=== PATIENT | female | born 1945 | race Caucasian/White ===

== ENCOUNTER 2019-01-15 14:46 | Inpatient (IN) | payer MEDICARE, MEDICAID ==
[2019-01-15] VITALS (10 sets, daily range): BP systolic 90–120; BP diastolic 45–62
[~2019-01-15] VITALS: Ht 165.1 cm; Wt 91.6 kg
[2019-01-15] MEDS ORDERED: PROPOFOL 10 MG/ML (20ML) VIAL. IV ONE (15:00)
[2019-01-15] MEDS ORDERED: MIDAZOLAM HCL/PF 5 MG/5 ML VIAL. IV ONE (15:00)
[2019-01-15] MEDS ORDERED: PROPOFOL 50 ML IV ONE (15:02)
[2019-01-15 15:05] LABS: BASO # 0.1 x10^3/uL (0.0-0.2); BASO % 1 % (0-3); EOS % 0 % (0-3); HEMATOCRIT 26.7 % (36.0-47.0); HEMOGLOBIN 8.4 g/dL (12.0-15.5); LYMPH # 1.5 x10^3/uL (1.0-4.8); LYMPH % 12 % (24-48); MEAN CORPUSCULAR HEMOGLOBIN 29 pg (25-35); MEAN CORPUSCULAR HGB CONC 31 g/dL (31-37); MEAN CORPUSCULAR VOLUME 92 fL (79-100); MONO # 1.2 x10^3/uL (0.0-1.1); MONO % 9 % (0-9); NEUT # 10.4 x10^3uL (1.8-7.7); NEUT % 78 % (31-73); PLATELET COUNT 245 x10^3/uL (140-400); RED BLOOD COUNT 2.91 x10^6/uL (3.50-5.40); RED CELL DISTRIBUTION WIDTH 20.9 % (11.5-14.5); WHITE BLOOD COUNT 13.3 x10^3/uL (4.0-11.0)
--- NOTE | 2019-01-15 15:08 | PHYS DOC ---
Adult General Chief Complaint Chief Complaint: OTHER COMPLAINTS HPI HPI Patient is a 73 year old [facility]. Yesterday, she was coded, in cardiac arrest. Patient was intubated. She was found to have pneumonia. She was septic. She was given vancomycin, zosyn, iv fluid and dopamine via picc line. Patient was sent here for admission to ICU. Dr. Coats, HER DOCTOR, will see her in the ICU but she needed to be checked into ER as a patient here first due to policy. Patient has been given ativan by prison and EMS for agitation. NO INFORMATION WAS ABLE TO OBTAIN FROM HER DUE TO HER BEING INTUBATED, HER FAMILY WAS NOT AROUND. Review of Systems Review of Systems NOT ABLE TO OBTAIN DUE TO INTUBATED STAGE. . Current Medications Current Medications Allergies Allergies Physical Exam Physical Exam Constitutional: Well developed, well nourished, INTUBATED, RESTRAINED TO BEG ON ROUTE, BUT AWAKE, ALERT. HENT: Normocephalic, atraumatic, bilateral external ears normal, ET TUBE IN MOUTH, DROOLING AT MOUTH. Eyes: PERRLA, EOMI, conjunctiva normal, no discharge. [] Neck: Normal range of motion, no tenderness, supple, no stridor. [] Cardiovascular:Heart rate regular rhythm, no murmur [] Lungs & Thorax: Bilateral breath sounds clear to auscultation [] Abdomen: Bowel sounds normal, soft, no tenderness, no masses, no pulsatile masses. Skin: Warm, dry, SKIN BRUISE ON ANTERIOR ABDOMEN. Back: ATRAUMATIC. Extremities:ATRAUMATIC. Neurologic: PATIENT WAS AWAKE, ALERT, RESTRAINED BY EMS UPON ARRIVAL TO ROOM. Psychologic: NOT ABLE TO EVALUATE DUE TO INTUBATED STAGE. Current Patient Data Vital Signs Vital Signs Date Time Temp Pulse Resp B/P (MAP) Pulse Ox O2 Delivery O2 Flow Rate FiO2 01/15/19 14:46 99.0 118 20 139/52 (81) 99 Ventilator 99.0 Lab Values Laboratory Tests Test 01/15/19 14:15 White Blood Count 13.3 x10^3/uL (4.0-11.0) H Red Blood Count 2.91 x10^6/uL (3.50-5.40) L Hemoglobin 8.4 g/dL (12.0-15.5) L Hematocrit 26.7 % (36.0-47.0) L Mean Corpuscular Volume 92 fL (79-100) Mean Corpuscular Hemoglobin 29 pg (25-35) Mean Corpuscular Hemoglobin Concent 31 g/dL (31-37) Red Cell Distribution Width 20.9 % (11.5-14.5) H Platelet Count 245 x10^3/uL (140-400) Neutrophils (%) (Auto) 78 % (31-73) H Lymphocytes (%) (Auto) 12 % (24-48) L Monocytes (%) (Auto) 9 % (0-9) Eosinophils (%) (Auto) 0 % (0-3) Basophils (%) (Auto) 1 % (0-3) Neutrophils # (Auto) 10.4 x10^3uL (1.8-7.7) H Lymphocytes # (Auto) 1.5 x10^3/uL (1.0-4.8) Monocytes # (Auto) 1.2 x10^3/uL (0.0-1.1) H Eosinophils # (Auto) 0.0 x10^3/uL (0.0-0.7) Basophils # (Auto) 0.1 x10^3/uL (0.0-0.2) Dohle Bodies Present Platelet Estimate Adequate (ADEQUATE) Large Platelets Present Giant Platelets Present Anisocytosis Mod Prothrombin Time 17.7 SEC (11.7-14.0) H Prothrombin Time INR 1.5 (0.8-1.1) H PTT 40 SEC (24-38) H Sodium Level 128 mmol/L (136-145) L Potassium Level 4.7 mmol/L (3.5-5.1) Chloride Level 92 mmol/L (98-107) L Carbon Dioxide Level 30 mmol/L (21-32) Anion Gap 6 (6-14) Blood Urea Nitrogen 83 mg/dL (7-20) H Creatinine 2.1 mg/dL (0.6-1.0) H Estimated GFR (Cockcroft-Gault) 23.2 BUN/Creatinine Ratio 40 (6-20) H Glucose Level 450 mg/dL (70-99) H Calcium Level 7.7 mg/dL (8.5-10.1) L Magnesium Level 2.1 mg/dL (1.8-2.4) Total Bilirubin 1.9 mg/dL (0.2-1.0) H Aspartate Amino Transferase (AST) 188 U/L (15-37) H Alanine Aminotransferase (ALT) 136 U/L (14-59) H Alkaline Phosphatase 224 U/L (46-116) H ZP-Otk-R-Type Natriuretic Peptide 3830 pg/mL (0-124) H Total Protein 5.5 g/dL (6.4-8.2) L Albumin 1.3 g/dL (3.4-5.0) L Albumin/Globulin Ratio 0.3 (1.0-1.7) L Laboratory Tests 01/15/19 14:15 Laboratory Tests 01/15/19 14:15 EKG EKG [] Radiology/Procedures Radiology/Procedures [] Course & Med Decision Making Course & Med Decision Making Pertinent Labs and Imaging studies reviewed. (See chart for details) Patient was given a bolus dose of versed, 5 mg iv in the ER for sedation. Patient was started on propofol drip. Dragon Disclaimer Dragon Disclaimer This electronic medical record was generated, in whole or in part, using a voice recognition dictation system. Departure Departure Impression: Primary Impression: Cardiac arrest Additional Impressions: HCAP (healthcare-associated pneumonia) Liver failure Disposition: ADMITTED INPATIENT Admitting Physician: Pepito Coats Condition: GUARDED Problem Qualifiers JULIOCESAR ACRNES DO Jan 15, 2019 15:08
[2019-01-15 15:14] LABS: PROTHROMBIN TIME PATIENT 17.7 SEC (11.7-14.0)
[2019-01-15] MEDS ORDERED: MIDAZOLAM 100mg/100ml NS BAG 100 ML IV ONE (15:15)
--- NOTE | 2019-01-15 15:15 | RAD ---
CHEST AP ONLY History: Intubation, CPR yesterday Comparison: None. Findings: Single view of the chest is submitted. There is enteric catheter coursing into the stomach, not fully seen. There is a left upper extremity PICC with the tip near the cavoatrial junction. There is endotracheal tube with the tip about 1.5 cm from isaiah. There are small pleural effusions bilaterally. There is bibasilar airspace opacity left greater than right, also of the mid right hemithorax. No pneumothorax is identified. Impression: 1. There are small pleural effusions. There is some bibasilar airspace opacity greater on the left and also of the mid right hemithorax which may be due to edema/infiltrate/atelectasis. Electronically signed by: Reji Benson MD (01/15/2019 3:11 PM) [facility]
[2019-01-15 15:17] LABS: CALCIUM 7.7 mg/dL (8.5-10.1); CREATININE 2.1 mg/dL (0.6-1.0); GFR 23.2; POTASSIUM 4.7 mmol/L (3.5-5.1)
[2019-01-15 15:23] LABS: ALBUMIN 1.3 g/dL (3.4-5.0); ALBUMIN/GLOBULIN RATIO 0.3 (1.0-1.7); MAGNESIUM 2.1 mg/dL (1.8-2.4); TOTAL BILIRUBIN 1.9 mg/dL (0.2-1.0); TOTAL PROTEIN 5.5 g/dL (6.4-8.2)
[2019-01-15] MEDS ORDERED: CALCIUM GLUCONATE 1,000 MG/10 ML VIAL. IVP ONE (15:30)
[2019-01-15 15:43] LABS: PLT ESTIMATE ADEQUATE (ADEQUATE)
[2019-01-15 15:46] LABS: ANISOCYTOSIS MOD
[2019-01-15 16:50] LABS: BASE EXCESS ABG 3 mmol/L (-3-3); HCO3 ABG 27 mmol/L (21-28); PCO2 ABG 38 mmHg (35-46); PO2 ABG 101 mmHg (65-108); SAT O2 ABG 97 % (92-99)
[2019-01-15] MEDS: NOREPINEPHRIN 8MG/250ML PREMIX 250 ML IV PRN (16:58)
--- NOTE | 2019-01-15 17:00 | NUR ---
Pt arrived to ICU bed 108. Pt admitted from [facility] post code. Pt arrived intubated, PICC line placed 01/14/19, dobbhoff, and castro in place. Orders placed per Dr. Coats. Notified Dr. France, and Dr. Les Sun of consult. Attempted to contact Dr. Duke regarding consult. Will continue to monitor.
--- NOTE | 2019-01-15 17:05 | PDOC ---
PULMONARY PROGRESS NOTES Vitals Vital Signs Date Time Temp Pulse Resp B/P (MAP) Pulse Ox O2 Delivery O2 Flow Rate FiO2 01/15/19 15:30 116 106/58 (74) 100 Room Air 01/15/19 14:46 99.0 20 99.0 Labs Laboratory Tests Test 01/15/19 14:15 White Blood Count 13.3 x10^3/uL (4.0-11.0) Red Blood Count 2.91 x10^6/uL (3.50-5.40) Hemoglobin 8.4 g/dL (12.0-15.5) Hematocrit 26.7 % (36.0-47.0) Mean Corpuscular Volume 92 fL (79-100) Mean Corpuscular Hemoglobin 29 pg (25-35) Mean Corpuscular Hemoglobin Concent 31 g/dL (31-37) Red Cell Distribution Width 20.9 % (11.5-14.5) Platelet Count 245 x10^3/uL (140-400) Neutrophils (%) (Auto) 78 % (31-73) Lymphocytes (%) (Auto) 12 % (24-48) Monocytes (%) (Auto) 9 % (0-9) Eosinophils (%) (Auto) 0 % (0-3) Basophils (%) (Auto) 1 % (0-3) Neutrophils # (Auto) 10.4 x10^3uL (1.8-7.7) Lymphocytes # (Auto) 1.5 x10^3/uL (1.0-4.8) Monocytes # (Auto) 1.2 x10^3/uL (0.0-1.1) Eosinophils # (Auto) 0.0 x10^3/uL (0.0-0.7) Basophils # (Auto) 0.1 x10^3/uL (0.0-0.2) Dohle Bodies Present Platelet Estimate Adequate (ADEQUATE) Large Platelets Present Giant Platelets Present Anisocytosis Mod Prothrombin Time 17.7 SEC (11.7-14.0) Prothromb Time International Ratio 1.5 (0.8-1.1) Activated Partial Thromboplast Time 40 SEC (24-38) Sodium Level 128 mmol/L (136-145) Potassium Level 4.7 mmol/L (3.5-5.1) Chloride Level 92 mmol/L (98-107) Carbon Dioxide Level 30 mmol/L (21-32) Anion Gap 6 (6-14) Blood Urea Nitrogen 83 mg/dL (7-20) Creatinine 2.1 mg/dL (0.6-1.0) Estimated GFR (Cockcroft-Gault) 23.2 BUN/Creatinine Ratio 40 (6-20) Glucose Level 450 mg/dL (70-99) Calcium Level 7.7 mg/dL (8.5-10.1) Magnesium Level 2.1 mg/dL (1.8-2.4) Total Bilirubin 1.9 mg/dL (0.2-1.0) Aspartate Amino Transf (AST/SGOT) 188 U/L (15-37) Alanine Aminotransferase (ALT/SGPT) 136 U/L (14-59) Alkaline Phosphatase 224 U/L (46-116) MO-Pqs-D-Type Natriuretic Peptide 3830 pg/mL (0-124) Total Protein 5.5 g/dL (6.4-8.2) Albumin 1.3 g/dL (3.4-5.0) Albumin/Globulin Ratio 0.3 (1.0-1.7) Laboratory Tests Test 01/15/19 14:15 White Blood Count 13.3 x10^3/uL (4.0-11.0) Red Blood Count 2.91 x10^6/uL (3.50-5.40) Hemoglobin 8.4 g/dL (12.0-15.5) Hematocrit 26.7 % (36.0-47.0) Mean Corpuscular Volume 92 fL (79-100) Mean Corpuscular Hemoglobin 29 pg (25-35) Mean Corpuscular Hemoglobin Concent 31 g/dL (31-37) Red Cell Distribution Width 20.9 % (11.5-14.5) Platelet Count 245 x10^3/uL (140-400) Neutrophils (%) (Auto) 78 % (31-73) Lymphocytes (%) (Auto) 12 % (24-48) Monocytes (%) (Auto) 9 % (0-9) Eosinophils (%) (Auto) 0 % (0-3) Basophils (%) (Auto) 1 % (0-3) Neutrophils # (Auto) 10.4 x10^3uL (1.8-7.7) Lymphocytes # (Auto) 1.5 x10^3/uL (1.0-4.8) Monocytes # (Auto) 1.2 x10^3/uL (0.0-1.1) Eosinophils # (Auto) 0.0 x10^3/uL (0.0-0.7) Basophils # (Auto) 0.1 x10^3/uL (0.0-0.2) Dohle Bodies Present Platelet Estimate Adequate (ADEQUATE) Large Platelets Present Giant Platelets Present Anisocytosis Mod Prothrombin Time 17.7 SEC (11.7-14.0) Prothromb Time International Ratio 1.5 (0.8-1.1) Activated Partial Thromboplast Time 40 SEC (24-38) Sodium Level 128 mmol/L (136-145) Potassium Level 4.7 mmol/L (3.5-5.1) Chloride Level 92 mmol/L (98-107) Carbon Dioxide Level 30 mmol/L (21-32) Anion Gap 6 (6-14) Blood Urea Nitrogen 83 mg/dL (7-20) Creatinine 2.1 mg/dL (0.6-1.0) Estimated GFR (Cockcroft-Gault) 23.2 BUN/Creatinine Ratio 40 (6-20) Glucose Level 450 mg/dL (70-99) Calcium Level 7.7 mg/dL (8.5-10.1) Magnesium Level 2.1 mg/dL (1.8-2.4) Total Bilirubin 1.9 mg/dL (0.2-1.0) Aspartate Amino Transf (AST/SGOT) 188 U/L (15-37) Alanine Aminotransferase (ALT/SGPT) 136 U/L (14-59) Alkaline Phosphatase 224 U/L (46-116) TX-Yiy-L-Type Natriuretic Peptide 3830 pg/mL (0-124) Total Protein 5.5 g/dL (6.4-8.2) Albumin 1.3 g/dL (3.4-5.0) Albumin/Globulin Ratio 0.3 (1.0-1.7) Impression . DICTATED THANKS GISELLA MCNEAL MD Jan 15, 2019 17:05
[2019-01-15] MEDS ORDERED: PIP/TAZO PER PHARMACY MC PRN ×2 (17:15→17:45)
[2019-01-15] MEDS ORDERED: ALBUTEROL SULFATE 2.5 MG/3 ML NEBU. NEB PRN (17:15)
[2019-01-15] MEDS ORDERED: ACETAMINOPHEN 325 MG TABLET. PO PRN (17:15)
[2019-01-15] MEDS ORDERED: DOCUSATE SODIUM 100 MG CAPSULE. PO PRN (17:15)
[2019-01-15] MEDS ORDERED: TRAM50TA PO (17:16)
[2019-01-15] MEDS ORDERED: QUET25TA5 PO ×2 (17:16)
[2019-01-15] MEDS ORDERED: AMIO200T4 PO (17:18)
[2019-01-15] MEDS ORDERED: FURO-68 PO (17:18)
[2019-01-15] MEDS ORDERED: PANT20TA2 PO (17:18)
[2019-01-15] MEDS ORDERED: DOCU100C28 PO (17:30)
[2019-01-15] MEDS ORDERED: ACET160O49 PO (17:30)
[2019-01-15] MEDS ORDERED: THIA100T43 PO (17:30)
[2019-01-15] MEDS ORDERED: ONDA4TAB7 PO (17:30)
[2019-01-15] MEDS ORDERED: ASPI325T8 PO (17:30)
[2019-01-15] MEDS ORDERED: ALBU2.5V5 NEB (17:30)
[2019-01-15] MEDS ORDERED: ASCO-78 PO (17:30)
[2019-01-15] MEDS ORDERED: MAGN2400 PO (17:30)
[2019-01-15] MEDS ORDERED: CARV3.12 PO (17:30)
[2019-01-15] MEDS ORDERED: MIRT7.5T8 PO (17:30)
[2019-01-15] MEDS ORDERED: ATOR10TA60 PO (17:30)
[2019-01-15] MEDS ORDERED: DEXTROSE 50% 25 GM / 50ML DISP.SYRIN. IV PRN (17:45)
[2019-01-15] MEDS ORDERED: VANCOMYCIN PER PHARMACY MC PRN (17:45)
[2019-01-15 18:27] LABS: FIO2 ABG 50
[2019-01-15] MEDS: PIPERACILLIN/TAZOBACTAM 2.25 GM in IV NORMAL SALINE 50ML 50 ML IV SCH (18:30)
[2019-01-15] MEDS: CARVEDILOL 3.125 MG TABLET. PO SCH (18:30)
[2019-01-15] MEDS ORDERED: ONDANSETRON ODT 4 MG TAB.RAPDIS. PO PRN (18:45)
[2019-01-15] MEDS ORDERED: MAGNESIUM HYDROXIDE 2,400 MG/30 ML ORAL.SUSP. PO PRN (18:45)
[2019-01-15] MEDS: ALBUTEROL SULFATE 2.5 MG/3 ML NEBU. NEB SCH (19:42)
[2019-01-15] MEDS ORDERED: VANCOMYCIN 2 GM in IV NORMAL SALINE 500ML BAG 500 ML IV ONE (20:00)
[2019-01-15] MEDS: QUEtiapine 25 MG TABLET. PO SCH (20:57)
[2019-01-15] MEDS: ATORVASTATIN CALCIUM 10 MG TABLET. PO SCH (20:57)
--- NOTE | 2019-01-15 21:13 | NUR ---
Pharmacy Vancomycin Dosing Note S: Consulted to monitor and dose vancomycin started 01/15/19. O: VASILIY ESPINAL is a 73 year old F with HCAP, . Other Antibiotics: ZOSYN LABS: Last BUN: 83 Last Creatinine: 2.1 Creatinine Clearance: 26 mL/min Last WBC: 13.3 Tmax (past 24 hours): 100.0 Vancomycin Dosing: Dosing Weight: Adjusted Target Trough: 15-20 A: Based on: VANCO dosing guidelines P: 1. Begin Vancomycin 2000mg LOAD dose, then 1250 mg IV q24h 2. Follow up Trough level on 01/17/19 at 2030 3. Pharmacy will continue to monitor, follow and adjust therapy as needed. RAMON STILL, [facility], 01/15/19 [id number]
[2019-01-16] VITALS (38 sets, daily range): BP systolic 58–134; BP diastolic 37–81
[2019-01-16] MEDS: MIDAZOLAM 100mg/100ml NS BAG 100 ML IV PRN (02:55)
[2019-01-16] MEDS: PIPERACILLIN/TAZOBACTAM 2.25 GM in IV NORMAL SALINE 50ML 50 ML IV SCH ×6 (05:40→23:47)
[2019-01-16] MEDS: INSULIN LISPRO 300 UNITS/3 ML INSULN.PEN. SQ SCH ×5 (05:40→23:57)
[2019-01-16 05:53] LABS: BASO # 0.1 x10^3/uL (0.0-0.2); BASO % 1 % (0-3); EOS # 0.2 x10^3/uL (0.0-0.7); EOS % 1 % (0-3); HEMATOCRIT 24.9 % (36.0-47.0); HEMOGLOBIN 7.9 g/dL (12.0-15.5); LYMPH # 1.3 x10^3/uL (1.0-4.8); LYMPH % 10 % (24-48); MEAN CORPUSCULAR HEMOGLOBIN 29 pg (25-35); MEAN CORPUSCULAR HGB CONC 32 g/dL (31-37); MEAN CORPUSCULAR VOLUME 91 fL (79-100); MONO # 1.3 x10^3/uL (0.0-1.1); MONO % 10 % (0-9); NEUT # 10.1 x10^3uL (1.8-7.7); NEUT % 78 % (31-73); PLATELET COUNT 260 x10^3/uL (140-400); RED BLOOD COUNT 2.73 x10^6/uL (3.50-5.40); RED CELL DISTRIBUTION WIDTH 20.5 % (11.5-14.5)
[2019-01-16] MEDS: NOREPINEPHRIN 8MG/250ML PREMIX 250 ML IV PRN ×3 (06:10→17:27)
[2019-01-16 06:13] LABS: ALBUMIN 1.3 g/dL (3.4-5.0); ALBUMIN/GLOBULIN RATIO 0.3 (1.0-1.7); GFR 24.6; POTASSIUM 4.4 mmol/L (3.5-5.1); TOTAL BILIRUBIN 0.8 mg/dL (0.2-1.0); TOTAL PROTEIN 5.3 g/dL (6.4-8.2)
[2019-01-16] MEDS: ALBUTEROL SULFATE 2.5 MG/3 ML NEBU. NEB SCH ×2 (07:03→20:10)
[2019-01-16] MEDS: CARVEDILOL 3.125 MG TABLET. PO SCH ×2 (07:20→13:19)
[2019-01-16] MEDS: PANTOPRAZOLE 40 MG TABLET.DR. PO SCH (07:20)
[2019-01-16 07:24] LABS: BASE EXCESS ABG 4 mmol/L (-3-3); HCO3 ABG 29 mmol/L (21-28); PCO2 ABG 44 mmHg (35-46); PO2 ABG 82 mmHg (65-108); SAT O2 ABG 95 % (92-99)
[2019-01-16 07:25] LABS: FIO2 ABG 40
[2019-01-16] MEDS ORDERED: INSULIN LISPRO 300 UNITS/3 ML INSULN.PEN. SQ SCH (08:00)
[2019-01-16] MEDS: ASPIRIN 325 MG TABLET PO SCH (08:03)
[2019-01-16] MEDS: ASCORBIC ACID 500 MG TABLET PO SCH (08:03)
[2019-01-16] MEDS: AMIODARONE HCL 200 MG TABLET. PO SCH (08:03)
[2019-01-16] MEDS: THIAMINE 100 MG TABLET. PO SCH (08:03)
--- NOTE | 2019-01-16 08:07 | PDOC ---
Infectious Disease Note Vital Sign Vital Signs Vital Signs Date Time Temp Pulse Resp B/P (MAP) Pulse Ox O2 Delivery O2 Flow Rate FiO2 01/16/19 07:20 92 96/48 01/16/19 07:03 97 Ventilator 01/16/19 07:00 20 01/16/19 04:00 98.6 98.6 Labs Lab Laboratory Tests Test 01/15/19 14:15 01/15/19 16:40 01/15/19 18:34 01/15/19 20:49 White Blood Count 13.3 x10^3/uL (4.0-11.0) Red Blood Count 2.91 x10^6/uL (3.50-5.40) Hemoglobin 8.4 g/dL (12.0-15.5) Hematocrit 26.7 % (36.0-47.0) Mean Corpuscular Volume 92 fL (79-100) Mean Corpuscular Hemoglobin 29 pg (25-35) Mean Corpuscular Hemoglobin Concent 31 g/dL (31-37) Red Cell Distribution Width 20.9 % (11.5-14.5) Platelet Count 245 x10^3/uL (140-400) Neutrophils (%) (Auto) 78 % (31-73) Lymphocytes (%) (Auto) 12 % (24-48) Monocytes (%) (Auto) 9 % (0-9) Eosinophils (%) (Auto) 0 % (0-3) Basophils (%) (Auto) 1 % (0-3) Neutrophils # (Auto) 10.4 x10^3uL (1.8-7.7) Lymphocytes # (Auto) 1.5 x10^3/uL (1.0-4.8) Monocytes # (Auto) 1.2 x10^3/uL (0.0-1.1) Eosinophils # (Auto) 0.0 x10^3/uL (0.0-0.7) Basophils # (Auto) 0.1 x10^3/uL (0.0-0.2) Dohle Bodies Present Platelet Estimate Adequate (ADEQUATE) Large Platelets Present Giant Platelets Present Anisocytosis Mod Prothrombin Time 17.7 SEC (11.7-14.0) Prothromb Time International Ratio 1.5 (0.8-1.1) Activated Partial Thromboplast Time 40 SEC (24-38) Sodium Level 128 mmol/L (136-145) Potassium Level 4.7 mmol/L (3.5-5.1) Chloride Level 92 mmol/L (98-107) Carbon Dioxide Level 30 mmol/L (21-32) Anion Gap 6 (6-14) Blood Urea Nitrogen 83 mg/dL (7-20) Creatinine 2.1 mg/dL (0.6-1.0) Estimated GFR (Cockcroft-Gault) 23.2 BUN/Creatinine Ratio 40 (6-20) Glucose Level 450 mg/dL (70-99) Calcium Level 7.7 mg/dL (8.5-10.1) Magnesium Level 2.1 mg/dL (1.8-2.4) Total Bilirubin 1.9 mg/dL (0.2-1.0) Aspartate Amino Transf (AST/SGOT) 188 U/L (15-37) Alanine Aminotransferase (ALT/SGPT) 136 U/L (14-59) Alkaline Phosphatase 224 U/L (46-116) KW-Bau-W-Type Natriuretic Peptide 3830 pg/mL (0-124) Total Protein 5.5 g/dL (6.4-8.2) Albumin 1.3 g/dL (3.4-5.0) Albumin/Globulin Ratio 0.3 (1.0-1.7) O2 Saturation 97 % (92-99) Arterial Blood pH 7.46 (7.35-7.45) Arterial Blood pCO2 at Patient Temp 38 mmHg (35-46) Arterial Blood pO2 at Patient Temp 101 mmHg (65-108) Arterial Blood HCO3 27 mmol/L (21-28) Arterial Blood Base Excess 3 mmol/L (-3-3) FiO2 50 Glucose (Fingerstick) 212 mg/dL (70-99) 201 mg/dL (70-99) Test 01/16/19 00:06 01/16/19 05:30 01/16/19 05:39 01/16/19 07:00 Glucose (Fingerstick) 196 mg/dL (70-99) 165 mg/dL (70-99) White Blood Count 13.0 x10^3/uL (4.0-11.0) Red Blood Count 2.73 x10^6/uL (3.50-5.40) Hemoglobin 7.9 g/dL (12.0-15.5) Hematocrit 24.9 % (36.0-47.0) Mean Corpuscular Volume 91 fL (79-100) Mean Corpuscular Hemoglobin 29 pg (25-35) Mean Corpuscular Hemoglobin Concent 32 g/dL (31-37) Red Cell Distribution Width 20.5 % (11.5-14.5) Platelet Count 260 x10^3/uL (140-400) Neutrophils (%) (Auto) 78 % (31-73) Lymphocytes (%) (Auto) 10 % (24-48) Monocytes (%) (Auto) 10 % (0-9) Eosinophils (%) (Auto) 1 % (0-3) Basophils (%) (Auto) 1 % (0-3) Neutrophils # (Auto) 10.1 x10^3uL (1.8-7.7) Lymphocytes # (Auto) 1.3 x10^3/uL (1.0-4.8) Monocytes # (Auto) 1.3 x10^3/uL (0.0-1.1) Eosinophils # (Auto) 0.2 x10^3/uL (0.0-0.7) Basophils # (Auto) 0.1 x10^3/uL (0.0-0.2) Sodium Level 141 mmol/L (136-145) Potassium Level 4.4 mmol/L (3.5-5.1) Chloride Level 102 mmol/L (98-107) Carbon Dioxide Level 31 mmol/L (21-32) Anion Gap 8 (6-14) Blood Urea Nitrogen 76 mg/dL (7-20) Creatinine 2.0 mg/dL (0.6-1.0) Estimated GFR (Cockcroft-Gault) 24.6 BUN/Creatinine Ratio 38 (6-20) Glucose Level 196 mg/dL (70-99) Calcium Level 8.0 mg/dL (8.5-10.1) Total Bilirubin 0.8 mg/dL (0.2-1.0) Aspartate Amino Transf (AST/SGOT) 100 U/L (15-37) Alanine Aminotransferase (ALT/SGPT) 106 U/L (14-59) Alkaline Phosphatase 214 U/L (46-116) Total Protein 5.3 g/dL (6.4-8.2) Albumin 1.3 g/dL (3.4-5.0) Albumin/Globulin Ratio 0.3 (1.0-1.7) Procalcitonin 11.19 ng/mL (0.00-0.10) O2 Saturation 95 % (92-99) Arterial Blood pH 7.43 (7.35-7.45) Arterial Blood pCO2 at Patient Temp 44 mmHg (35-46) Arterial Blood pO2 at Patient Temp 82 mmHg (65-108) Arterial Blood HCO3 29 mmol/L (21-28) Arterial Blood Base Excess 4 mmol/L (-3-3) FiO2 40 Objective Assessment Fever Respiratory failure Circulatory failure CHF/Cardiomyopathy DM A fib Stage 3 , sacral ulcer Plan Plan of Care cont zosyn change vanc to zyvox check cultures supportive care overall prognosis poor MICHELINE RYAN MD Jan 16, 2019 08:07
--- NOTE | 2019-01-16 08:07 | RAD ---
Portable chest, 01/16/2019: HISTORY: Respiratory failure Comparison is made to a study from 01/15/2019. The ET tube tip lies well above the isaiah. A left PICC extends to the level of the atriocaval junction. There appears to be a Dobbhoff type tube in the esophagus extending into the upper abdomen. Its tip is not visible. The heart is enlarged. There are bilateral pulmonary infiltrates with poor definition of the underlying pulmonary vascularity. There is pleural thickening laterally on both sides compatible with pleural fluid. These opacities have worsened. There is no evidence of pneumothorax. IMPRESSION: 1. Stable tube positions. 2. Worsening pulmonary infiltrates and bilateral pleural effusions most likely representing congestive heart failure. Pneumonia cannot be excluded. Electronically signed by: Robin Howard MD (01/16/2019 8:04 AM) [facility]
[2019-01-16] MEDS: ACETAMINOPHEN 650 MG/20.3 ML SOLUTION. PEG PRN (08:09)
[2019-01-16] MEDS ORDERED: MIRTAZAPINE 7.5 MG TABLET. PO SCH (09:00)
[2019-01-16] MEDS ORDERED: FUROSEMIDE 40 MG TABLET. PO SCH (09:00)
--- NOTE | 2019-01-16 09:05 | NUR ---
SW reviewed pt's medical chart and evaluated for potential dc needs. Pt is from [facility] and was admitted for cardiac arrest. SW will determine if pt is eligible to return to [facility] and continue to follow for additional dc needs.
--- NOTE | 2019-01-16 09:25 | PDOC ---
PULMONARY PROGRESS NOTES Subjective PT SEDATED ON AC MODE Vitals Vital Signs Date Time Temp Pulse Resp B/P (MAP) Pulse Ox O2 Delivery O2 Flow Rate FiO2 01/16/19 09:00 102 16 100/52 (68) 97 Ventilator 01/16/19 08:00 100.7 100.7 Lungs: Crackles Cardiovascular: S1, S2 Abdomen: Soft, Non-tender Extremities: Other (EDEMA) Skin: Warm Labs Laboratory Tests Test 01/15/19 14:15 01/15/19 16:40 01/15/19 18:34 01/15/19 20:49 White Blood Count 13.3 x10^3/uL (4.0-11.0) Red Blood Count 2.91 x10^6/uL (3.50-5.40) Hemoglobin 8.4 g/dL (12.0-15.5) Hematocrit 26.7 % (36.0-47.0) Mean Corpuscular Volume 92 fL (79-100) Mean Corpuscular Hemoglobin 29 pg (25-35) Mean Corpuscular Hemoglobin Concent 31 g/dL (31-37) Red Cell Distribution Width 20.9 % (11.5-14.5) Platelet Count 245 x10^3/uL (140-400) Neutrophils (%) (Auto) 78 % (31-73) Lymphocytes (%) (Auto) 12 % (24-48) Monocytes (%) (Auto) 9 % (0-9) Eosinophils (%) (Auto) 0 % (0-3) Basophils (%) (Auto) 1 % (0-3) Neutrophils # (Auto) 10.4 x10^3uL (1.8-7.7) Lymphocytes # (Auto) 1.5 x10^3/uL (1.0-4.8) Monocytes # (Auto) 1.2 x10^3/uL (0.0-1.1) Eosinophils # (Auto) 0.0 x10^3/uL (0.0-0.7) Basophils # (Auto) 0.1 x10^3/uL (0.0-0.2) Dohle Bodies Present Platelet Estimate Adequate (ADEQUATE) Large Platelets Present Giant Platelets Present Anisocytosis Mod Prothrombin Time 17.7 SEC (11.7-14.0) Prothromb Time International Ratio 1.5 (0.8-1.1) Activated Partial Thromboplast Time 40 SEC (24-38) Sodium Level 128 mmol/L (136-145) Potassium Level 4.7 mmol/L (3.5-5.1) Chloride Level 92 mmol/L (98-107) Carbon Dioxide Level 30 mmol/L (21-32) Anion Gap 6 (6-14) Blood Urea Nitrogen 83 mg/dL (7-20) Creatinine 2.1 mg/dL (0.6-1.0) Estimated GFR (Cockcroft-Gault) 23.2 BUN/Creatinine Ratio 40 (6-20) Glucose Level 450 mg/dL (70-99) Calcium Level 7.7 mg/dL (8.5-10.1) Magnesium Level 2.1 mg/dL (1.8-2.4) Total Bilirubin 1.9 mg/dL (0.2-1.0) Aspartate Amino Transf (AST/SGOT) 188 U/L (15-37) Alanine Aminotransferase (ALT/SGPT) 136 U/L (14-59) Alkaline Phosphatase 224 U/L (46-116) VQ-Izf-H-Type Natriuretic Peptide 3830 pg/mL (0-124) Total Protein 5.5 g/dL (6.4-8.2) Albumin 1.3 g/dL (3.4-5.0) Albumin/Globulin Ratio 0.3 (1.0-1.7) O2 Saturation 97 % (92-99) Arterial Blood pH 7.46 (7.35-7.45) Arterial Blood pCO2 at Patient Temp 38 mmHg (35-46) Arterial Blood pO2 at Patient Temp 101 mmHg (65-108) Arterial Blood HCO3 27 mmol/L (21-28) Arterial Blood Base Excess 3 mmol/L (-3-3) FiO2 50 Glucose (Fingerstick) 212 mg/dL (70-99) 201 mg/dL (70-99) Test 01/16/19 00:06 01/16/19 05:30 01/16/19 05:39 01/16/19 07:00 Glucose (Fingerstick) 196 mg/dL (70-99) 165 mg/dL (70-99) White Blood Count 13.0 x10^3/uL (4.0-11.0) Red Blood Count 2.73 x10^6/uL (3.50-5.40) Hemoglobin 7.9 g/dL (12.0-15.5) Hematocrit 24.9 % (36.0-47.0) Mean Corpuscular Volume 91 fL (79-100) Mean Corpuscular Hemoglobin 29 pg (25-35) Mean Corpuscular Hemoglobin Concent 32 g/dL (31-37) Red Cell Distribution Width 20.5 % (11.5-14.5) Platelet Count 260 x10^3/uL (140-400) Neutrophils (%) (Auto) 78 % (31-73) Lymphocytes (%) (Auto) 10 % (24-48) Monocytes (%) (Auto) 10 % (0-9) Eosinophils (%) (Auto) 1 % (0-3) Basophils (%) (Auto) 1 % (0-3) Neutrophils # (Auto) 10.1 x10^3uL (1.8-7.7) Lymphocytes # (Auto) 1.3 x10^3/uL (1.0-4.8) Monocytes # (Auto) 1.3 x10^3/uL (0.0-1.1) Eosinophils # (Auto) 0.2 x10^3/uL (0.0-0.7) Basophils # (Auto) 0.1 x10^3/uL (0.0-0.2) Sodium Level 141 mmol/L (136-145) Potassium Level 4.4 mmol/L (3.5-5.1) Chloride Level 102 mmol/L (98-107) Carbon Dioxide Level 31 mmol/L (21-32) Anion Gap 8 (6-14) Blood Urea Nitrogen 76 mg/dL (7-20) Creatinine 2.0 mg/dL (0.6-1.0) Estimated GFR (Cockcroft-Gault) 24.6 BUN/Creatinine Ratio 38 (6-20) Glucose Level 196 mg/dL (70-99) Calcium Level 8.0 mg/dL (8.5-10.1) Total Bilirubin 0.8 mg/dL (0.2-1.0) Aspartate Amino Transf (AST/SGOT) 100 U/L (15-37) Alanine Aminotransferase (ALT/SGPT) 106 U/L (14-59) Alkaline Phosphatase 214 U/L (46-116) Total Protein 5.3 g/dL (6.4-8.2) Albumin 1.3 g/dL (3.4-5.0) Albumin/Globulin Ratio 0.3 (1.0-1.7) Procalcitonin 11.19 ng/mL (0.00-0.10) O2 Saturation 95 % (92-99) Arterial Blood pH 7.43 (7.35-7.45) Arterial Blood pCO2 at Patient Temp 44 mmHg (35-46) Arterial Blood pO2 at Patient Temp 82 mmHg (65-108) Arterial Blood HCO3 29 mmol/L (21-28) Arterial Blood Base Excess 4 mmol/L (-3-3) FiO2 40 Laboratory Tests Test 01/15/19 14:15 01/15/19 16:40 01/15/19 18:34 01/15/19 20:49 White Blood Count 13.3 x10^3/uL (4.0-11.0) Red Blood Count 2.91 x10^6/uL (3.50-5.40) Hemoglobin 8.4 g/dL (12.0-15.5) Hematocrit 26.7 % (36.0-47.0) Mean Corpuscular Volume 92 fL (79-100) Mean Corpuscular Hemoglobin 29 pg (25-35) Mean Corpuscular Hemoglobin Concent 31 g/dL (31-37) Red Cell Distribution Width 20.9 % (11.5-14.5) Platelet Count 245 x10^3/uL (140-400) Neutrophils (%) (Auto) 78 % (31-73) Lymphocytes (%) (Auto) 12 % (24-48) Monocytes (%) (Auto) 9 % (0-9) Eosinophils (%) (Auto) 0 % (0-3) Basophils (%) (Auto) 1 % (0-3) Neutrophils # (Auto) 10.4 x10^3uL (1.8-7.7) Lymphocytes # (Auto) 1.5 x10^3/uL (1.0-4.8) Monocytes # (Auto) 1.2 x10^3/uL (0.0-1.1) Eosinophils # (Auto) 0.0 x10^3/uL (0.0-0.7) Basophils # (Auto) 0.1 x10^3/uL (0.0-0.2) Dohle Bodies Present Platelet Estimate Adequate (ADEQUATE) Large Platelets Present Giant Platelets Present Anisocytosis Mod Prothrombin Time 17.7 SEC (11.7-14.0) Prothromb Time International Ratio 1.5 (0.8-1.1) Activated Partial Thromboplast Time 40 SEC (24-38) Sodium Level 128 mmol/L (136-145) Potassium Level 4.7 mmol/L (3.5-5.1) Chloride Level 92 mmol/L (98-107) Carbon Dioxide Level 30 mmol/L (21-32) Anion Gap 6 (6-14) Blood Urea Nitrogen 83 mg/dL (7-20) Creatinine 2.1 mg/dL (0.6-1.0) Estimated GFR (Cockcroft-Gault) 23.2 BUN/Creatinine Ratio 40 (6-20) Glucose Level 450 mg/dL (70-99) Calcium Level 7.7 mg/dL (8.5-10.1) Magnesium Level 2.1 mg/dL (1.8-2.4) Total Bilirubin 1.9 mg/dL (0.2-1.0) Aspartate Amino Transf (AST/SGOT) 188 U/L (15-37) Alanine Aminotransferase (ALT/SGPT) 136 U/L (14-59) Alkaline Phosphatase 224 U/L (46-116) FN-Nix-P-Type Natriuretic Peptide 3830 pg/mL (0-124) Total Protein 5.5 g/dL (6.4-8.2) Albumin 1.3 g/dL (3.4-5.0) Albumin/Globulin Ratio 0.3 (1.0-1.7) O2 Saturation 97 % (92-99) Arterial Blood pH 7.46 (7.35-7.45) Arterial Blood pCO2 at Patient Temp 38 mmHg (35-46) Arterial Blood pO2 at Patient Temp 101 mmHg (65-108) Arterial Blood HCO3 27 mmol/L (21-28) Arterial Blood Base Excess 3 mmol/L (-3-3) FiO2 50 Glucose (Fingerstick) 212 mg/dL (70-99) 201 mg/dL (70-99) Test 01/16/19 00:06 01/16/19 05:30 01/16/19 05:39 01/16/19 07:00 Glucose (Fingerstick) 196 mg/dL (70-99) 165 mg/dL (70-99) White Blood Count 13.0 x10^3/uL (4.0-11.0) Red Blood Count 2.73 x10^6/uL (3.50-5.40) Hemoglobin 7.9 g/dL (12.0-15.5) Hematocrit 24.9 % (36.0-47.0) Mean Corpuscular Volume 91 fL (79-100) Mean Corpuscular Hemoglobin 29 pg (25-35) Mean Corpuscular Hemoglobin Concent 32 g/dL (31-37) Red Cell Distribution Width 20.5 % (11.5-14.5) Platelet Count 260 x10^3/uL (140-400) Neutrophils (%) (Auto) 78 % (31-73) Lymphocytes (%) (Auto) 10 % (24-48) Monocytes (%) (Auto) 10 % (0-9) Eosinophils (%) (Auto) 1 % (0-3) Basophils (%) (Auto) 1 % (0-3) Neutrophils # (Auto) 10.1 x10^3uL (1.8-7.7) Lymphocytes # (Auto) 1.3 x10^3/uL (1.0-4.8) Monocytes # (Auto) 1.3 x10^3/uL (0.0-1.1) Eosinophils # (Auto) 0.2 x10^3/uL (0.0-0.7) Basophils # (Auto) 0.1 x10^3/uL (0.0-0.2) Sodium Level 141 mmol/L (136-145) Potassium Level 4.4 mmol/L (3.5-5.1) Chloride Level 102 mmol/L (98-107) Carbon Dioxide Level 31 mmol/L (21-32) Anion Gap 8 (6-14) Blood Urea Nitrogen 76 mg/dL (7-20) Creatinine 2.0 mg/dL (0.6-1.0) Estimated GFR (Cockcroft-Gault) 24.6 BUN/Creatinine Ratio 38 (6-20) Glucose Level 196 mg/dL (70-99) Calcium Level 8.0 mg/dL (8.5-10.1) Total Bilirubin 0.8 mg/dL (0.2-1.0) Aspartate Amino Transf (AST/SGOT) 100 U/L (15-37) Alanine Aminotransferase (ALT/SGPT) 106 U/L (14-59) Alkaline Phosphatase 214 U/L (46-116) Total Protein 5.3 g/dL (6.4-8.2) Albumin 1.3 g/dL (3.4-5.0) Albumin/Globulin Ratio 0.3 (1.0-1.7) Procalcitonin 11.19 ng/mL (0.00-0.10) O2 Saturation 95 % (92-99) Arterial Blood pH 7.43 (7.35-7.45) Arterial Blood pCO2 at Patient Temp 44 mmHg (35-46) Arterial Blood pO2 at Patient Temp 82 mmHg (65-108) Arterial Blood HCO3 29 mmol/L (21-28) Arterial Blood Base Excess 4 mmol/L (-3-3) FiO2 40 Medications Active Scripts Medications Dose Route/Sig Max Daily Dose Days Date Category Vitamin C (Ascorbate Calcium) 500 Mg Tablet 500 Mg PO DAILY 01/15/19 Reported Aspirin 325 Mg Tablet 1 Tab PO DAILY 01/15/19 Reported Coreg (Carvedilol) 3.125 Mg Tablet 3.125 Mg PO BIDWMEALS 01/15/19 Reported Zofran (Ondansetron Hcl) 4 Mg Tablet 4 Mg PO PRN Q6HRS PRN 01/15/19 Reported B-1 (Thiamine HCl) 100 Mg Tablet 100 Mg PO DAILY 01/15/19 Reported Docusate Sodium 100 Mg Capsule 100 Mg PO PRN PRN 01/15/19 Reported Acetaminophen 160 Mg/5 Ml Oral.susp 650 Mg PO PRN Q4HRS PRN 01/15/19 Reported Milk Of Magnesia (Magnesium Hydroxide) 2,400 Mg/10 Ml Oral.susp 2,400 Mg PO PRN PRN 01/15/19 Reported Mirtazapine 7.5 Mg Tablet 7.5 Mg PO QHS 01/15/19 Reported Albuterol Sulfate Neb Soln (Albuterol Sulfate) 2.5 Mg/3 Ml Vial.neb 2.5 Mg NEB BID 01/15/19 Reported Atorvastatin Calcium 10 Mg Tablet 10 Mg PO HS 01/15/19 Reported Lasix (Furosemide) 40 Mg Tablet 40 Mg PO BID 01/15/19 Reported Protonix (Pantoprazole Sodium) 20 Mg Tablet.dr 40 Mg PO DAILY 01/15/19 Reported Amiodarone Hcl 200 Mg Tablet 1 Tab PO DAILY 01/15/19 Reported Seroquel (Quetiapine Fumarate) 25 Mg Tablet 25 Mg PO HS 01/15/19 Reported Tramadol Hcl 50 Mg Tablet 25 Mg PO Q6HRS PRN 01/15/19 Reported Seroquel (Quetiapine Fumarate) 25 Mg Tablet 12.5 Mg PO PRN Q6HRS PRN 01/15/19 Reported Impression . IMPRESSION: 1. Acute respiratory failure, status post cardiopulmonary arrest, the patient transferred from [facility]. 2. Acute on chronic systolic heart failure. 3. Abnormal x-ray compatible with bilateral airspace disease in the lower lobes, possible pneumonia. 4. Type 2 diabetes. 5. Severe protein malnutrition. 6. Thrombocytopenia. 7. History of pacemaker implantation. 8. Prior history of gastric ulcers. Plan . SPOKE WITH RN PT DID NOT DO WELL OFF SEDATION AND TRIAL WILL CONTINUE SUPPORT MAY NEED A TRACH 1. We will continue current support with assist control ventilation. 2. Baseline arterial blood gas. 3. Diurese. 4. Empiric antibiotics. 5. Consult Cardiology. 6. Continue current support for now, overall prognosis appears to be very poor. CCT 30 MIN GISELLA MCNEAL MD Jan 16, 2019 09:25
--- NOTE | 2019-01-16 12:47 | CONS ---
DATE OF CONSULTATION: 01/15/2019 ATTENDING PHYSICIAN: Dr. Coats.. REASON FOR CONSULTATION: The patient was seen in pulmonary consultation at the request of Dr. Coats/Dr. Garza for acute respiratory failure requiring mechanical ventilation. The patient had a cardiac arrest at [facility]. HISTORY OF PRESENT ILLNESS: The patient is a 73-year-old with multiple comorbidities. She was at [facility], being treated for nonischemic cardiomyopathy, ejection fraction of 20%, acute on chronic hypercarbic hypoxemic hypercapnic respiratory failure. She has been transferred from [facility] to [facility] on 01/10. Last evening, she had a cardiac arrest. She was intubated. She was hypotensive. She was started on dopamine. Today, she was transferred to [facility] Intensive Care Unit. I was asked to see her in consultation. No further history is obtained. I have reviewed the medical records from [facility], Dr. Holden Garza's history and physical and a followup note by Dr. Brown, the communications field technician. The patient was doing relatively well with BiPAP and AVAPS. Plans were to arrange for home Trilogy. She was also being treated with nebulized treatments for COPD. She was tolerating oxygen throughout the day. PAST MEDICAL HISTORY: Otherwise remarkable for 1. Nonischemic cardiomyopathy, ejection fraction 20%. 2. Previous cardiac catheterization, which revealed mild coronary artery disease. 3. Status post pacemaker implantation and AICD. AICD was not placed because prognosis is poor. 4. History of gastric ulcer, status post EGD. In the past, she had been on Pradaxa. 5. Chronic AFib. PAST SURGICAL HISTORY: As indicated above. SOCIAL HISTORY: Not known if she smokes. REVIEW OF SYSTEMS: Unobtainable secondary to the patient's condition. PHYSICAL EXAMINATION: GENERAL: The patient was in the Intensive Care Unit at [place]. She was on dopamine. VITAL SIGNS: Her blood pressure mean was above 60. HEENT: Eyes, the sclerae were nonicteric. NECK: Jugular venous distention was not elevated. No lymphadenopathy. CHEST: Full expansion. LUNGS: Adequate airway flow in the bases anteriorly. No wheezes. CARDIOVASCULAR: Tachycardic, S1, S2, no S3. ABDOMEN: Soft, nontender, nondistended. EXTREMITIES: No clubbing, cyanosis, some edema. LABORATORY DATA: Reviewed. Chest x-ray was reviewed. There was small bilateral effusion, some basilar airspace opacities, no overt failure. White count was 13,000, hemoglobin of 8.4, hematocrit of 26, platelet count was 245. Electrolytes were noted. Sodium was low. BUN was elevated, creatinine was elevated. BNP was elevated. Liver chemistries were elevated. Albumin was markedly low at 1.3. IMPRESSION: 1. Acute respiratory failure, status post cardiopulmonary arrest, the patient transferred from [facility]. 2. Acute on chronic systolic heart failure. 3. Abnormal x-ray compatible with bilateral airspace disease in the lower lobes, possible pneumonia. 4. Type 2 diabetes. 5. Severe protein malnutrition. 6. Thrombocytopenia. 7. History of pacemaker implantation. 8. Prior history of gastric ulcers. PLAN: 1. We will continue current support with assist control ventilation. 2. Baseline arterial blood gas. 3. Diurese. 4. Empiric antibiotics. 5. Consult Cardiology. 6. Continue current support for now, overall prognosis appears to be very poor. Total cumulative critical care time of 50 minutes. GISELLA MCNEAL MD DR: CRIS/nicole JOB#: [id number] / [id number]
--- NOTE | 2019-01-16 13:03 | PDOC2 ---
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 She was treated with aggressive diuretics , her Cr went up to 1.5 but eventually improved to 0.9 and was dced to [facility] on 01/10 . She has been followed by Dr. Hollins (District Recruiter ) at [facility] As per the daughter, patient was also on HD for a Month at [facility] prior to Hospitalization at [facility] for NICKIE , but renal function had improved at [place] and was off HD As per daughter she has these episodes of cardiac arrest many times . At [facility] she was participating in Rehab but appeared to be very angry but overall was doing stable She had a Kahn in Place with Good UOp At [facility] Cr was 0.9 , went up to 1.7 to 1.9 on 01/15 Current Problem List Problem List Problems Medical Problems: (1) Cardiac arrest Status: Acute (2) HCAP (healthcare-associated pneumonia) Status: Acute (3) Liver failure Status: Acute Current Medications Current Medications Current Medications Propofol (Diprivan) 200 mg 1X ONCE IV ; Start 01/15/19 at 15:00; Stop 01/15/19 at 15:06; Status DC Midazolam HCl (Versed) 5 mg 1X ONCE IV Last administered on 01/15/19at 15:59; Start 01/15/19 at 15:00; Stop 01/15/19 at 15:01; Status DC Propofol 50 ml @ As Directed STK-MED ONCE IV ; Start 01/15/19 at 15:02; Stop 01/15/19 at 15:03; Status DC Midazolam HCl 100 ml @ 0 mls/hr 1X ONCE IV Last administered on 01/15/19at 15:19; Start 01/15/19 at 15:15; Stop 01/15/19 at 15:16; Status DC Calcium Gluconate (Calcium Gluconate) 1,000 mg 1X ONCE IVP Last administered on 01/15/19at 15:58; Start 01/15/19 at 15:30; Stop 01/15/19 at 15:31; Status DC Norepinephrine Bitartrate 250 ml @ 1.875 mls/ hr CONT PRN IV SEE I/O RECORD Last administered on 01/16/19at 06:10; Start 01/15/19 at 17:00 Piperacillin Sod/ Tazobactam Sod (Zosyn Per Pharmacy) 1 each PRN DAILY PRN MC SEE COMMENTS; Start 01/15/19 at 17:15 Albuterol Sulfate (Ventolin Neb Soln) 2.5 mg PRN Q4HRS PRN NEB SHORTNESS OF BREATH; Start 01/15/19 at 17:15 Midazolam HCl 100 ml @ 5 mls/hr CONT PRN IV SEE I/O RECORD Last administered on 01/16/19at 02:55; Start 01/15/19 at 17:15 Fentanyl Citrate (Fentanyl 2ml Vial) 50 mcg PRN Q2HR PRN IV PAIN; Start 01/15/19 at 17:15 Piperacillin Sod/ Tazobactam Sod 2.25 gm/Sodium Chloride 50 ml @ 100 mls/hr Q6HRS IV Last administered on 01/16/19at 11:20; Start 01/15/19 at 18:00 Albuterol Sulfate (Ventolin Neb Soln) 2.5 mg RTBID NEB Last administered on 01/16/19at 07:03; Start 01/15/19 at 20:00 Amiodarone HCl (Cordarone) 200 mg DAILY PO Last administered on 01/16/19at 08:03; Start 01/16/19 at 09:00 Aspirin (Dieudonne Aspirin) 325 mg DAILY PO Last administered on 01/16/19at 08:03; Start 01/16/19 at 09:00 Atorvastatin Calcium (Lipitor) 10 mg HS PO Last administered on 01/15/19at 20:57; Start 01/15/19 at 21:00 Carvedilol (Coreg) 3.125 mg BIDWMEALS PO ; Start 01/15/19 at 18:30 Docusate Sodium (Colace) 100 mg PRN DAILY PRN PO hard stools; Start 01/15/19 at 17:15 Furosemide (Lasix) 40 mg BID94 PO ; Start 01/16/19 at 09:00; Stop 01/16/19 at 10:50; Status DC Mirtazapine (Remeron) 7.5 mg DAILY PO ; Start 01/16/19 at 09:00; Stop 01/16/19 at 09:00; Status DC Tramadol HCl (Ultram) 25 mg PRN Q6HRS PRN PO MILD TO MODERATE PAIN; Start 01/15/19 at 17:15 Acetaminophen (Tylenol) 650 mg PRN Q4HRS PRN PO FEVER Last administered on 01/15/19at 20:57; Start 01/15/19 at 17:15; Stop 01/16/19 at 08:07; Status DC Ascorbic Acid (Vitamin C) 500 mg DAILY PO Last administered on 01/16/19at 08:03; Start 01/16/19 at 09:00 Magnesium Hydroxide (Milk Of Magnesia) 2,400 mg PRN DAILY PRN PO CONSTIPATION; Start 01/15/19 at 18:45 Ondansetron HCl (Zofran Odt) 4 mg PRN Q6HRS PRN PO NAUSEA/VOMITING; Start 01/15/19 at 18:45 Pantoprazole Sodium (Protonix) 40 mg DAILYAC PO ; Start 01/16/19 at 07:30 Quetiapine Fumarate (SEROquel) 12.5 mg PRN Q6HRS PRN PO AGITATION; Start 01/15/19 at 17:15 Quetiapine Fumarate (SEROquel) 25 mg QHS PO Last administered on 01/15/19at 20:57; Start 01/15/19 at 21:00 Thiamine Mononitrate (Vitamin B-1) 100 mg DAILY PO Last administered on 01/16/19at 08:03; Start 01/16/19 at 09:00 Vancomycin HCl (Vanco Per Pharmacy) 1 each PRN DAILY PRN MC SEE COMMENTS Last administered on 01/15/19at 21:10; Start 01/15/19 at 17:45; Stop 01/16/19 at 08:06; Status DC Piperacillin Sod/ Tazobactam Sod (Zosyn Per Pharmacy) 1 each PRN DAILY PRN MC SEE COMMENTS; Start 01/15/19 at 17:45; Status UNV Insulin Human Lispro (HumaLOG) 0-5 UNITS TIDWMEALS SQ ; Start 01/16/19 at 08:00; Stop 01/16/19 at 08:00; Status DC Dextrose (Dextrose 50%-Water Syringe) 12.5 gm PRN Q15MIN PRN IV SEE COMMENTS; Start 01/15/19 at 17:45 Vancomycin HCl 2 gm/Sodium Chloride 500 ml @ 250 mls/hr 1X ONCE IV Last administered on 01/15/19at 20:56; Start 01/15/19 at 20:00; Stop 01/15/19 at 21:59; Status DC Insulin Human Lispro (HumaLOG) 0-5 UNITS Q6HRS SQ ; Start 01/16/19 at 00:00 Vancomycin HCl 1.25 gm/Sodium Chloride 250 ml @ 167 mls/hr Q24H IV ; Start 01/16/19 at 21:00; Stop 01/16/19 at 21:00; Status DC Vancomycin HCl (Vancomycin Trough Level) 1 each 1X ONCE MC ; Start 01/17/19 at 20:30; Stop 01/17/19 at 20:31; Status Cancel Mirtazapine (Remeron) 7.5 mg QHS PO ; Start 01/16/19 at 21:00 Linezolid/Dextrose 300 ml @ 300 mls/hr Q12HR IV Last administered on 01/16/19at 08:30; Start 01/16/19 at 09:00 Acetaminophen (Tylenol) 650 mg PRN Q4HRS PRN PEG MILD PAIN / TEMP Last administered on 01/16/19at 08:09; Start 01/16/19 at 08:15 Famotidine (Pepcid) 20 mg QHS PO ; Start 01/16/19 at 21:00 Active Scripts Active Reported Vitamin C (Ascorbate Calcium) 500 Mg Tablet 500 Mg PO DAILY Aspirin 325 Mg Tablet 1 Tab PO DAILY Coreg (Carvedilol) 3.125 Mg Tablet 3.125 Mg PO BIDWMEALS Zofran (Ondansetron Hcl) 4 Mg Tablet 4 Mg PO PRN Q6HRS PRN B-1 (Thiamine HCl) 100 Mg Tablet 100 Mg PO DAILY Docusate Sodium 100 Mg Capsule 100 Mg PO PRN PRN Acetaminophen 160 Mg/5 Ml Oral.susp 650 Mg PO PRN Q4HRS PRN Milk Of Magnesia (Magnesium Hydroxide) 2,400 Mg/10 Ml Oral.susp 2,400 Mg PO PRN PRN Mirtazapine 7.5 Mg Tablet 7.5 Mg PO QHS Albuterol Sulfate Neb Soln (Albuterol Sulfate) 2.5 Mg/3 Ml Vial.neb 2.5 Mg NEB BID Atorvastatin Calcium 10 Mg Tablet 10 Mg PO HS Lasix (Furosemide) 40 Mg Tablet 40 Mg PO BID Protonix (Pantoprazole Sodium) 20 Mg Tablet.dr 40 Mg PO DAILY Amiodarone Hcl 200 Mg Tablet 1 Tab PO DAILY Seroquel (Quetiapine Fumarate) 25 Mg Tablet 25 Mg PO HS Tramadol Hcl 50 Mg Tablet 25 Mg PO Q6HRS PRN Seroquel (Quetiapine Fumarate) 25 Mg Tablet 12.5 Mg PO PRN Q6HRS PRN Allergies Allergies: Coded Allergies: No Known Drug Allergies (Unverified , 01/15/19) ROS Review of System Unable to obtain , Intubated Physical Exam Physical Exam GEN: Intubated HEEN: Intubated , Opening her eyes NECK: Supple CVS: RRR RESP: CTA ant GI: Soft , NT : Kahn + Ext- No LE edema NEuro- Intubated , Responsive, nods her head, Opening eyes Skin No rash Vital Signs Vital Signs Date Time Temp Pulse Resp B/P (MAP) Pulse Ox O2 Delivery O2 Flow Rate FiO2 01/16/19 12:20 98 98/56 (70) 01/16/19 12:00 100.3 16 99 Ventilator 100.3 Assessment & Plan NICKIE - Etiology- Cardio -Renal, Post cardiac arrest Baseline Cr at [facility] 0.9 went up to 1.7-1.9 on 01/15 Has been on IV Lasix switched to PO at [facility] E-Lytes and acid base stable, Currently no emergent indication for HD Strict I/O, daily weights , Anticipate fluctuations in renal function sec to cardiac Hyperkalemia - at select Currently Normal K Hyponatremia- Resolved Fever- on Abx ID following Respiratory failure- Intubated Non Ischemic 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% Defer to cardiology Elevated LFT's DM- as per primary A fib - On Amiodarone As per cardiology Sacral ulcer Anemia- Hgb stable Continue supportive care Has significant CMP and her Functional status is poor Discussed with Daughter at bedside Labs Labs Laboratory Tests Test 01/15/19 14:15 01/15/19 16:40 01/15/19 18:34 01/15/19 20:49 White Blood Count 13.3 x10^3/uL (4.0-11.0) Red Blood Count 2.91 x10^6/uL (3.50-5.40) Hemoglobin 8.4 g/dL (12.0-15.5) Hematocrit 26.7 % (36.0-47.0) Mean Corpuscular Volume 92 fL (79-100) Mean Corpuscular Hemoglobin 29 pg (25-35) Mean Corpuscular Hemoglobin Concent 31 g/dL (31-37) Red Cell Distribution Width 20.9 % (11.5-14.5) Platelet Count 245 x10^3/uL (140-400) Neutrophils (%) (Auto) 78 % (31-73) Lymphocytes (%) (Auto) 12 % (24-48) Monocytes (%) (Auto) 9 % (0-9) Eosinophils (%) (Auto) 0 % (0-3) Basophils (%) (Auto) 1 % (0-3) Neutrophils # (Auto) 10.4 x10^3uL (1.8-7.7) Lymphocytes # (Auto) 1.5 x10^3/uL (1.0-4.8) Monocytes # (Auto) 1.2 x10^3/uL (0.0-1.1) Eosinophils # (Auto) 0.0 x10^3/uL (0.0-0.7) Basophils # (Auto) 0.1 x10^3/uL (0.0-0.2) Dohle Bodies Present Platelet Estimate Adequate (ADEQUATE) Large Platelets Present Giant Platelets Present Anisocytosis Mod Prothrombin Time 17.7 SEC (11.7-14.0) Prothromb Time International Ratio 1.5 (0.8-1.1) Activated Partial Thromboplast Time 40 SEC (24-38) Sodium Level 128 mmol/L (136-145) Potassium Level 4.7 mmol/L (3.5-5.1) Chloride Level 92 mmol/L (98-107) Carbon Dioxide Level 30 mmol/L (21-32) Anion Gap 6 (6-14) Blood Urea Nitrogen 83 mg/dL (7-20) Creatinine 2.1 mg/dL (0.6-1.0) Estimated GFR (Cockcroft-Gault) 23.2 BUN/Creatinine Ratio 40 (6-20) Glucose Level 450 mg/dL (70-99) Calcium Level 7.7 mg/dL (8.5-10.1) Magnesium Level 2.1 mg/dL (1.8-2.4) Total Bilirubin 1.9 mg/dL (0.2-1.0) Aspartate Amino Transf (AST/SGOT) 188 U/L (15-37) Alanine Aminotransferase (ALT/SGPT) 136 U/L (14-59) Alkaline Phosphatase 224 U/L (46-116) OO-Lkq-B-Type Natriuretic Peptide 3830 pg/mL (0-124) Total Protein 5.5 g/dL (6.4-8.2) Albumin 1.3 g/dL (3.4-5.0) Albumin/Globulin Ratio 0.3 (1.0-1.7) O2 Saturation 97 % (92-99) Arterial Blood pH 7.46 (7.35-7.45) Arterial Blood pCO2 at Patient Temp 38 mmHg (35-46) Arterial Blood pO2 at Patient Temp 101 mmHg (65-108) Arterial Blood HCO3 27 mmol/L (21-28) Arterial Blood Base Excess 3 mmol/L (-3-3) FiO2 50 Glucose (Fingerstick) 212 mg/dL (70-99) 201 mg/dL (70-99) Test 01/16/19 00:06 01/16/19 05:30 01/16/19 05:39 01/16/19 07:00 Glucose (Fingerstick) 196 mg/dL (70-99) 165 mg/dL (70-99) White Blood Count 13.0 x10^3/uL (4.0-11.0) Red Blood Count 2.73 x10^6/uL (3.50-5.40) Hemoglobin 7.9 g/dL (12.0-15.5) Hematocrit 24.9 % (36.0-47.0) Mean Corpuscular Volume 91 fL (79-100) Mean Corpuscular Hemoglobin 29 pg (25-35) Mean Corpuscular Hemoglobin Concent 32 g/dL (31-37) Red Cell Distribution Width 20.5 % (11.5-14.5) Platelet Count 260 x10^3/uL (140-400) Neutrophils (%) (Auto) 78 % (31-73) Lymphocytes (%) (Auto) 10 % (24-48) Monocytes (%) (Auto) 10 % (0-9) Eosinophils (%) (Auto) 1 % (0-3) Basophils (%) (Auto) 1 % (0-3) Neutrophils # (Auto) 10.1 x10^3uL (1.8-7.7) Lymphocytes # (Auto) 1.3 x10^3/uL (1.0-4.8) Monocytes # (Auto) 1.3 x10^3/uL (0.0-1.1) Eosinophils # (Auto) 0.2 x10^3/uL (0.0-0.7) Basophils # (Auto) 0.1 x10^3/uL (0.0-0.2) Sodium Level 141 mmol/L (136-145) Potassium Level 4.4 mmol/L (3.5-5.1) Chloride Level 102 mmol/L (98-107) Carbon Dioxide Level 31 mmol/L (21-32) Anion Gap 8 (6-14) Blood Urea Nitrogen 76 mg/dL (7-20) Creatinine 2.0 mg/dL (0.6-1.0) Estimated GFR (Cockcroft-Gault) 24.6 BUN/Creatinine Ratio 38 (6-20) Glucose Level 196 mg/dL (70-99) Calcium Level 8.0 mg/dL (8.5-10.1) Total Bilirubin 0.8 mg/dL (0.2-1.0) Aspartate Amino Transf (AST/SGOT) 100 U/L (15-37) Alanine Aminotransferase (ALT/SGPT) 106 U/L (14-59) Alkaline Phosphatase 214 U/L (46-116) Total Protein 5.3 g/dL (6.4-8.2) Albumin 1.3 g/dL (3.4-5.0) Albumin/Globulin Ratio 0.3 (1.0-1.7) Procalcitonin 11.19 ng/mL (0.00-0.10) O2 Saturation 95 % (92-99) Arterial Blood pH 7.43 (7.35-7.45) Arterial Blood pCO2 at Patient Temp 44 mmHg (35-46) Arterial Blood pO2 at Patient Temp 82 mmHg (65-108) Arterial Blood HCO3 29 mmol/L (21-28) Arterial Blood Base Excess 4 mmol/L (-3-3) FiO2 40 Test 01/16/19 11:20 Glucose (Fingerstick) 169 mg/dL (70-99) Laboratory Tests Test 01/15/19 14:15 01/15/19 16:40 01/15/19 18:34 01/15/19 20:49 White Blood Count 13.3 x10^3/uL (4.0-11.0) Red Blood Count 2.91 x10^6/uL (3.50-5.40) Hemoglobin 8.4 g/dL (12.0-15.5) Hematocrit 26.7 % (36.0-47.0) Mean Corpuscular Volume 92 fL (79-100) Mean Corpuscular Hemoglobin 29 pg (25-35) Mean Corpuscular Hemoglobin Concent 31 g/dL (31-37) Red Cell Distribution Width 20.9 % (11.5-14.5) Platelet Count 245 x10^3/uL (140-400) Neutrophils (%) (Auto) 78 % (31-73) Lymphocytes (%) (Auto) 12 % (24-48) Monocytes (%) (Auto) 9 % (0-9) Eosinophils (%) (Auto) 0 % (0-3) Basophils (%) (Auto) 1 % (0-3) Neutrophils # (Auto) 10.4 x10^3uL (1.8-7.7) Lymphocytes # (Auto) 1.5 x10^3/uL (1.0-4.8) Monocytes # (Auto) 1.2 x10^3/uL (0.0-1.1) Eosinophils # (Auto) 0.0 x10^3/uL (0.0-0.7) Basophils # (Auto) 0.1 x10^3/uL (0.0-0.2) Dohle Bodies Present Platelet Estimate Adequate (ADEQUATE) Large Platelets Present Giant Platelets Present Anisocytosis Mod Prothrombin Time 17.7 SEC (11.7-14.0) Prothromb Time International Ratio 1.5 (0.8-1.1) Activated Partial Thromboplast Time 40 SEC (24-38) Sodium Level 128 mmol/L (136-145) Potassium Level 4.7 mmol/L (3.5-5.1) Chloride Level 92 mmol/L (98-107) Carbon Dioxide Level 30 mmol/L (21-32) Anion Gap 6 (6-14) Blood Urea Nitrogen 83 mg/dL (7-20) Creatinine 2.1 mg/dL (0.6-1.0) Estimated GFR (Cockcroft-Gault) 23.2 BUN/Creatinine Ratio 40 (6-20) Glucose Level 450 mg/dL (70-99) Calcium Level 7.7 mg/dL (8.5-10.1) Magnesium Level 2.1 mg/dL (1.8-2.4) Total Bilirubin 1.9 mg/dL (0.2-1.0) Aspartate Amino Transf (AST/SGOT) 188 U/L (15-37) Alanine Aminotransferase (ALT/SGPT) 136 U/L (14-59) Alkaline Phosphatase 224 U/L (46-116) XJ-Bvn-Z-Type Natriuretic Peptide 3830 pg/mL (0-124) Total Protein 5.5 g/dL (6.4-8.2) Albumin 1.3 g/dL (3.4-5.0) Albumin/Globulin Ratio 0.3 (1.0-1.7) O2 Saturation 97 % (92-99) Arterial Blood pH 7.46 (7.35-7.45) Arterial Blood pCO2 at Patient Temp 38 mmHg (35-46) Arterial Blood pO2 at Patient Temp 101 mmHg (65-108) Arterial Blood HCO3 27 mmol/L (21-28) Arterial Blood Base Excess 3 mmol/L (-3-3) FiO2 50 Glucose (Fingerstick) 212 mg/dL (70-99) 201 mg/dL (70-99) Test 01/16/19 00:06 01/16/19 05:30 01/16/19 05:39 01/16/19 07:00 Glucose (Fingerstick) 196 mg/dL (70-99) 165 mg/dL (70-99) White Blood Count 13.0 x10^3/uL (4.0-11.0) Red Blood Count 2.73 x10^6/uL (3.50-5.40) Hemoglobin 7.9 g/dL (12.0-15.5) Hematocrit 24.9 % (36.0-47.0) Mean Corpuscular Volume 91 fL (79-100) Mean Corpuscular Hemoglobin 29 pg (25-35) Mean Corpuscular Hemoglobin Concent 32 g/dL (31-37) Red Cell Distribution Width 20.5 % (11.5-14.5) Platelet Count 260 x10^3/uL (140-400) Neutrophils (%) (Auto) 78 % (31-73) Lymphocytes (%) (Auto) 10 % (24-48) Monocytes (%) (Auto) 10 % (0-9) Eosinophils (%) (Auto) 1 % (0-3) Basophils (%) (Auto) 1 % (0-3) Neutrophils # (Auto) 10.1 x10^3uL (1.8-7.7) Lymphocytes # (Auto) 1.3 x10^3/uL (1.0-4.8) Monocytes # (Auto) 1.3 x10^3/uL (0.0-1.1) Eosinophils # (Auto) 0.2 x10^3/uL (0.0-0.7) Basophils # (Auto) 0.1 x10^3/uL (0.0-0.2) Sodium Level 141 mmol/L (136-145) Potassium Level 4.4 mmol/L (3.5-5.1) Chloride Level 102 mmol/L (98-107) Carbon Dioxide Level 31 mmol/L (21-32) Anion Gap 8 (6-14) Blood Urea Nitrogen 76 mg/dL (7-20) Creatinine 2.0 mg/dL (0.6-1.0) Estimated GFR (Cockcroft-Gault) 24.6 BUN/Creatinine Ratio 38 (6-20) Glucose Level 196 mg/dL (70-99) Calcium Level 8.0 mg/dL (8.5-10.1) Total Bilirubin 0.8 mg/dL (0.2-1.0) Aspartate Amino Transf (AST/SGOT) 100 U/L (15-37) Alanine Aminotransferase (ALT/SGPT) 106 U/L (14-59) Alkaline Phosphatase 214 U/L (46-116) Total Protein 5.3 g/dL (6.4-8.2) Albumin 1.3 g/dL (3.4-5.0) Albumin/Globulin Ratio 0.3 (1.0-1.7) Procalcitonin 11.19 ng/mL (0.00-0.10) O2 Saturation 95 % (92-99) Arterial Blood pH 7.43 (7.35-7.45) Arterial Blood pCO2 at Patient Temp 44 mmHg (35-46) Arterial Blood pO2 at Patient Temp 82 mmHg (65-108) Arterial Blood HCO3 29 mmol/L (21-28) Arterial Blood Base Excess 4 mmol/L (-3-3) FiO2 40 Test 01/16/19 11:20 Glucose (Fingerstick) 169 mg/dL (70-99) Review All relevant outside records, renal labs, imaging studies, telemetry/EKG's were reviewed. Images Images CxR- 1. Stable tube positions. 2. Worsening pulmonary infiltrates and bilateral pleural effusions most likely representing congestive heart failure. Pneumonia cannot be excluded. ESTEBAN GANDARA MD Jan 16, 2019 13:03
--- NOTE | 2019-01-16 13:16 | CARD ---
MR#: [id number] Date of Study: 01/16/2019 Ordering Physician: AIME PEDRO, Referring Physician: MICHELLE PASTOR Tech: Tonja Hernández RDCS APPROVED REPORT EXAM: Two-dimensional and M-mode echocardiogram with Doppler and color Doppler. Other Information Quality : Good INDICATION Cardiac Arrest, Intubation 2D DIMENSIONS Left Atrium(2D)2.7 (1.6-4.0cm)IVSd1.1 (0.7-1.1cm) Aortic Root(2D)2.8 (2.0-3.7cm)LVDd5.7 (3.9-5.9cm) LVOT Diameter1.9 (1.8-2.4cm)PWd1.1 (0.7-1.1cm) LVDs4.5 (2.5-4.0cm)FS (%) 21.0 % SV68.3 ml Aortic Valve AoV Peak Seng.165.7cm/sAoV VTI24.8cm AO Peak GR.11.0mmHgLVOT Peak Seng.131.2cm/s AO Mean GR.6mmHgAVA (VMAX)2.24cm2 HEMRES (VTI)2.30cm2 Mitral Valve MV E Ougnosmr47.9cm/sMV DECEL [id number] MV A Tvlsfibe436.1cm/sE/A Ratio0.7 Pulmonary Vein S1 Srppmroo43.2cm/sD2 Fjsiizsi51.5cm/s LEFT VENTRICLE The Left Ventricle is borderline dilated. There is normal left ventricular wall thickness. Left ventr icle systolic function is mild impaired. The Ejection Fraction is estimated at 40%. Septal motion con sistent with conduction abnormality. There is global hypokinesis of the left ventricle. Transmitral D oppler flow pattern is Grade I-abnormal relaxation pattern. RIGHT VENTRICLE The right ventricle is normal size. The right ventricular systolic function is normal. ATRIA The left atrium size is normal. The right atrium size is normal. The interatrial septum is intact wit h no evidence for an atrial septal defect or patent foramen ovale as noted on 2-D or Doppler imaging. AORTIC VALVE The aortic valve appears calcified but is not well visualized. Doppler and Color Flow revealed no sig nificant aortic regurgitation. There is no significant aortic valvular stenosis. MITRAL VALVE The mitral valve is moderately thickened. Mitral annular calcification is moderate. There is no evide nce of mitral valve prolapse. There is no mitral valve stenosis. Doppler and Color-flow revealed trac e to mild mitral regurgitation. TRICUSPID VALVE The tricuspid valve is normal in structure and function. Doppler and Color Flow revealed trace tricus pid valve regurgitation. There is no tricuspid valve stenosis. PULMONIC VALVE The pulmonic valve is not well visualized. Doppler and Color Flow revealed no pulmonic valvular regur gitation. There is no pulmonic valvular stenosis. GREAT VESSELS The aortic root is normal in size. The ascending aorta is normal in size. The IVC is normal in size a nd collapses >50% with inspiration. PERICARDIAL EFFUSION There is probable moderate left pleural effusion. There is no evidence of significant pericardial eff usion. Critical Notification Critical Value: No <Conclusion> The Left Ventricle is borderline dilated. Left ventricle systolic function is mild impaired. The Ejection Fraction is estimated at 40%. Septal motion consistent with conduction abnormality. There is global hypokinesis of the left ventricle. There is no significant aortic valvular stenosis. Doppler and Color Flow revealed no significant aortic regurgitation. Doppler and Color-flow revealed trace to mild mitral regurgitation. Doppler and Color Flow revealed trace tricuspid valve regurgitation. Signed by : Osbaldo Chicas MD Electronically Approved : 01/16/2019 13:16:25
--- NOTE | 2019-01-16 13:19 | PDOC2 ---
CARDIAC CONSULT DATE OF CONSULT Date of Consult DATE: 01/16/19 TIME: 13:12 REASON FOR CONSULT Reason for Consult: Cardiac arrest REFERRING PHYSICIAN Referring Physician: Dr. Palomo SOURCE Source: Chart review HISTORY OF PRESENT ILLNESS HISTORY OF PRESENT ILLNESS This is a 73 yo female who presented from [facility] secondary to PEA arrest. Wednesday evening, patient had cardiac arrest at [facility]. Was intubated following. Was also hypotensive and started on Dopamine gtt. Was transferred to [facility] yesterday for further evaluation and treatment. Initially presented to [facility] with CHF and NICKIE. Echo notable for significant LV systolic dysfunction with an EF of 15-20%. Underwent cardiac cath at that time, which did not reveal any significant obstructive disease. Eventually requiring HD for about a month. Was discharged to rehab facility in [place], [place]. Was then transferred to [facility] in [place] due to acute on chronic systolic heart failure and acute respiratory failure resulting in cardiopulmonary arrest. She was treated with Lasix therapy and also underwent bilateral thoracentesis due to pleural effusions. Had Medtronic leadless PPM place at this time. No AICD was placed as prognosis deemed to be poor. Has sacral wound. Was maintained on nasogastric tube feedings due to dysphagia. Transferred to [facility] for ongoing care. PAST MEDICAL HISTORY Cardiovascular: AFIB (paroxysmal ), CHF (NICM), HTN, Hyperlipidemia, Other (cardiopulmonary arrest) GI: GI bleed, Peptic Ulcer disease Renal/: Chronic renal insuff, Acute renal failure Endocrine: Diabetes PAST SURGICAL HISTORY Past Surgical History: Pacemaker (Medtronic ), Tubal Ligation FAMILY HISTORY Family History: Diabetes SOCIAL HISTORY Smoke: No ALCOHOL: none Drugs: None CURRENT MEDICATIONS CURRENT MEDICATIONS Current Medications Medications (Trade) Dose Ordered Sig/Destiny Route PRN Reason Start Time Stop Time Status Last Admin Dose Admin Midazolam HCl (Versed) 5 mg 1X ONCE IV 01/15/19 15:00 01/15/19 15:01 DC 01/15/19 15:59 Midazolam HCl 100 ml @ 0 mls/hr 1X ONCE IV 01/15/19 15:15 01/15/19 15:16 DC 01/15/19 15:19 Calcium Gluconate (Calcium Gluconate) 1,000 mg 1X ONCE IVP 01/15/19 15:30 01/15/19 15:31 DC 01/15/19 15:58 Norepinephrine Bitartrate 250 ml @ 1.875 mls/ hr CONT PRN IV SEE I/O RECORD 01/15/19 17:00 01/16/19 06:10 Midazolam HCl 100 ml @ 5 mls/hr CONT PRN IV SEE I/O RECORD 01/15/19 17:15 01/16/19 02:55 Piperacillin Sod/ Tazobactam Sod 2.25 gm/Sodium Chloride 50 ml @ 100 mls/hr Q6HRS IV 01/15/19 18:00 01/16/19 11:20 Albuterol Sulfate (Ventolin Neb Soln) 2.5 mg RTBID NEB 01/15/19 20:00 01/16/19 07:03 Amiodarone HCl (Cordarone) 200 mg DAILY PO 01/16/19 09:00 01/16/19 08:03 Aspirin (Dieudonne Aspirin) 325 mg DAILY PO 01/16/19 09:00 01/16/19 08:03 Atorvastatin Calcium (Lipitor) 10 mg HS PO 01/15/19 21:00 01/15/19 20:57 Acetaminophen (Tylenol) 650 mg PRN Q4HRS PRN PO FEVER 01/15/19 17:15 01/16/19 08:07 DC 01/15/19 20:57 Ascorbic Acid (Vitamin C) 500 mg DAILY PO 01/16/19 09:00 01/16/19 08:03 Quetiapine Fumarate (SEROquel) 25 mg QHS PO 01/15/19 21:00 01/15/19 20:57 Thiamine Mononitrate (Vitamin B-1) 100 mg DAILY PO 01/16/19 09:00 01/16/19 08:03 Vancomycin HCl (Vanco Per Pharmacy) 1 each PRN DAILY PRN MC SEE COMMENTS 01/15/19 17:45 01/16/19 08:06 DC 01/15/19 21:10 Vancomycin HCl 2 gm/Sodium Chloride 500 ml @ 250 mls/hr 1X ONCE IV 01/15/19 20:00 01/15/19 21:59 DC 01/15/19 20:56 Linezolid/Dextrose 300 ml @ 300 mls/hr Q12HR IV 01/16/19 09:00 01/16/19 08:30 Acetaminophen (Tylenol) 650 mg PRN Q4HRS PRN PEG MILD PAIN / TEMP 01/16/19 08:15 01/16/19 08:09 ALLERGIES ALLERGIES: Coded Allergies: No Known Drug Allergies (Unverified , 01/15/19) ROS Review of System unobtainable. PHYSICAL EXAM General: Alert, Other (follows commands) Lungs: Other (bibasilar crackles, mechanical vent) Heart: Regular rate, Normal S1, Normal S2, Other (distant heart tones) Abdomen: Soft, No tenderness Extremities: Other (trace bilateral LE edema ) Neuro: Other (opens eyes, follows commands) Psych/Mental Status: Other (unable to assess) MUSCULOSKELETAL: Osteoarthritic changes both hands VITALS VITALS Vital Signs Date Time Temp Pulse Resp B/P (MAP) Pulse Ox O2 Delivery O2 Flow Rate FiO2 01/16/19 12:20 98 98/56 (70) 01/16/19 12:00 100.3 16 99 Ventilator 100.3 LABS Lab: Laboratory Tests Test 01/15/19 14:15 01/15/19 16:40 01/15/19 18:34 01/15/19 20:49 White Blood Count 13.3 x10^3/uL (4.0-11.0) Red Blood Count 2.91 x10^6/uL (3.50-5.40) Hemoglobin 8.4 g/dL (12.0-15.5) Hematocrit 26.7 % (36.0-47.0) Mean Corpuscular Volume 92 fL (79-100) Mean Corpuscular Hemoglobin 29 pg (25-35) Mean Corpuscular Hemoglobin Concent 31 g/dL (31-37) Red Cell Distribution Width 20.9 % (11.5-14.5) Platelet Count 245 x10^3/uL (140-400) Neutrophils (%) (Auto) 78 % (31-73) Lymphocytes (%) (Auto) 12 % (24-48) Monocytes (%) (Auto) 9 % (0-9) Eosinophils (%) (Auto) 0 % (0-3) Basophils (%) (Auto) 1 % (0-3) Neutrophils # (Auto) 10.4 x10^3uL (1.8-7.7) Lymphocytes # (Auto) 1.5 x10^3/uL (1.0-4.8) Monocytes # (Auto) 1.2 x10^3/uL (0.0-1.1) Eosinophils # (Auto) 0.0 x10^3/uL (0.0-0.7) Basophils # (Auto) 0.1 x10^3/uL (0.0-0.2) Dohle Bodies Present Platelet Estimate Adequate (ADEQUATE) Large Platelets Present Giant Platelets Present Anisocytosis Mod Prothrombin Time 17.7 SEC (11.7-14.0) Prothromb Time International Ratio 1.5 (0.8-1.1) Activated Partial Thromboplast Time 40 SEC (24-38) Sodium Level 128 mmol/L (136-145) Potassium Level 4.7 mmol/L (3.5-5.1) Chloride Level 92 mmol/L (98-107) Carbon Dioxide Level 30 mmol/L (21-32) Anion Gap 6 (6-14) Blood Urea Nitrogen 83 mg/dL (7-20) Creatinine 2.1 mg/dL (0.6-1.0) Estimated GFR (Cockcroft-Gault) 23.2 BUN/Creatinine Ratio 40 (6-20) Glucose Level 450 mg/dL (70-99) Calcium Level 7.7 mg/dL (8.5-10.1) Magnesium Level 2.1 mg/dL (1.8-2.4) Total Bilirubin 1.9 mg/dL (0.2-1.0) Aspartate Amino Transf (AST/SGOT) 188 U/L (15-37) Alanine Aminotransferase (ALT/SGPT) 136 U/L (14-59) Alkaline Phosphatase 224 U/L (46-116) CY-Spc-O-Type Natriuretic Peptide 3830 pg/mL (0-124) Total Protein 5.5 g/dL (6.4-8.2) Albumin 1.3 g/dL (3.4-5.0) Albumin/Globulin Ratio 0.3 (1.0-1.7) O2 Saturation 97 % (92-99) Arterial Blood pH 7.46 (7.35-7.45) Arterial Blood pCO2 at Patient Temp 38 mmHg (35-46) Arterial Blood pO2 at Patient Temp 101 mmHg (65-108) Arterial Blood HCO3 27 mmol/L (21-28) Arterial Blood Base Excess 3 mmol/L (-3-3) FiO2 50 Glucose (Fingerstick) 212 mg/dL (70-99) 201 mg/dL (70-99) Test 01/16/19 00:06 01/16/19 05:30 01/16/19 05:39 01/16/19 07:00 Glucose (Fingerstick) 196 mg/dL (70-99) 165 mg/dL (70-99) White Blood Count 13.0 x10^3/uL (4.0-11.0) Red Blood Count 2.73 x10^6/uL (3.50-5.40) Hemoglobin 7.9 g/dL (12.0-15.5) Hematocrit 24.9 % (36.0-47.0) Mean Corpuscular Volume 91 fL (79-100) Mean Corpuscular Hemoglobin 29 pg (25-35) Mean Corpuscular Hemoglobin Concent 32 g/dL (31-37) Red Cell Distribution Width 20.5 % (11.5-14.5) Platelet Count 260 x10^3/uL (140-400) Neutrophils (%) (Auto) 78 % (31-73) Lymphocytes (%) (Auto) 10 % (24-48) Monocytes (%) (Auto) 10 % (0-9) Eosinophils (%) (Auto) 1 % (0-3) Basophils (%) (Auto) 1 % (0-3) Neutrophils # (Auto) 10.1 x10^3uL (1.8-7.7) Lymphocytes # (Auto) 1.3 x10^3/uL (1.0-4.8) Monocytes # (Auto) 1.3 x10^3/uL (0.0-1.1) Eosinophils # (Auto) 0.2 x10^3/uL (0.0-0.7) Basophils # (Auto) 0.1 x10^3/uL (0.0-0.2) Sodium Level 141 mmol/L (136-145) Potassium Level 4.4 mmol/L (3.5-5.1) Chloride Level 102 mmol/L (98-107) Carbon Dioxide Level 31 mmol/L (21-32) Anion Gap 8 (6-14) Blood Urea Nitrogen 76 mg/dL (7-20) Creatinine 2.0 mg/dL (0.6-1.0) Estimated GFR (Cockcroft-Gault) 24.6 BUN/Creatinine Ratio 38 (6-20) Glucose Level 196 mg/dL (70-99) Calcium Level 8.0 mg/dL (8.5-10.1) Total Bilirubin 0.8 mg/dL (0.2-1.0) Aspartate Amino Transf (AST/SGOT) 100 U/L (15-37) Alanine Aminotransferase (ALT/SGPT) 106 U/L (14-59) Alkaline Phosphatase 214 U/L (46-116) Total Protein 5.3 g/dL (6.4-8.2) Albumin 1.3 g/dL (3.4-5.0) Albumin/Globulin Ratio 0.3 (1.0-1.7) Procalcitonin 11.19 ng/mL (0.00-0.10) O2 Saturation 95 % (92-99) Arterial Blood pH 7.43 (7.35-7.45) Arterial Blood pCO2 at Patient Temp 44 mmHg (35-46) Arterial Blood pO2 at Patient Temp 82 mmHg (65-108) Arterial Blood HCO3 29 mmol/L (21-28) Arterial Blood Base Excess 4 mmol/L (-3-3) FiO2 40 Test 01/16/19 11:20 Glucose (Fingerstick) 169 mg/dL (70-99) ASSESSMENT/PLAN ASSESSMENT/PLAN 1. S/p cardiopulmonary arrest at [facility] 01/14/19 2. Acute and chronic respiratory failure with a/c systolic heart failure and possible PNA; s/p intubation 3. Acute on chronic systolic heart failure 4. NICM; LVEF 15-20% 5. NICKIE on CKD; Cr 2.0. Was 0.9 last week 6. Anemia; hgb 7.9 7. Leukocytosis, ? sepsis. Blood cultures ordered 8. Diabetes, II; as per PCP 9. Hyperlipidemia; statin 10. s/p PPM (Medtronic) 11. PAFIB; maintaining SR. Previously on Pradaxa, but discontinued due to GI bleed 12. H/o GI bleed 13. Elevated LFTs 14. Protein-calorie malnutrition Recommendations Medtronic to interrogate device Echo to assess LV systolic function Mild diuresis with monitoring of renal function Continue Amiodarone for rhythm maintenance ASA for stroke prevention as patient is poor candidate for OAC given h/o GI bleeding HF optimization as BP allows. 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
--- NOTE | 2019-01-16 14:39 | NUR ---
RUDY following up with pt dc plan. Pt is from [facility]. Per Pia with [facility], pt can return but must have three midnights in the hospital to qualify. Per request, RUDY phoned and faxed clinical updates to [facility], phone: [phone], fax: [phone]. RUDY will continue to follow.
--- NOTE | 2019-01-16 15:44 | NUR ---
Wound care: Patient seen per wound care consult. See wound assessment. Patient has unstageable pressure ulcer to coccyx. Wound cleansed and assessed. Recommendations for medi-honey, aquacel ag, foam dressing and cover with tegaderm tape. Dressing applied and patient tolerated well. No other wounds noted upon complete head to toe assessment. Patient repositioned using wedge and turned to right side. Bilateral heels floated. Dressing change instructions left in room. Family at bedside. Patient is on ICU bed at this time. Spoke with RN regarding POC. Will follow patient regarding wound care. Call light in reach, bed lowered. n
--- NOTE | 2019-01-16 15:56 | PDOC ---
Provider Note Provider Note history and physical dictated # [id number] CHRISTINA CHAVARRIA MD Jan 16, 2019 15:56
--- NOTE | 2019-01-16 16:26 | EKG ---
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
--- NOTE | 2019-01-16 17:15 | RAD ---
EXAM: CHEST 1 VIEW History: Pneumonia COMPARISON: 01/15/2019 TECHNIQUE: Single portable radiograph of the chest FINDINGS: Low lung volumes and technique accentuates heart and pulmonary vascularity. The ET tube, feeding tube, left-sided PICC line identified. Moderate prominent appearing bilateral interstitial lung markings likely increased congestive changes. Mild increase in left-sided pleural effusion. Opacity identified in the right midlung zone likely fluid within the fissure has slightly increased. IMPRESSION: 1. Increase in congestive changes. Electronically signed by: Luca Razo MD (01/16/2019 5:12 PM) [id number]
--- NOTE | 2019-01-16 19:45 | HP ---
ADMIT DATE: 01/15/2019 LOCATION: She is in intensive care unit, 108. HISTORY OF PRESENT ILLNESS: The patient is a 73-year-old white female with a history of a nonischemic cardiomyopathy with a previous left ventricular ejection fraction of 15-20% with a history of chronic combined systolic and diastolic congestive heart failure. She also has a history of diabetes mellitus type 2 and mild coronary artery disease and a previous history of gastric ulcer with GI bleed 06/2018 and paroxysmal atrial fibrillation, was taken off of Pradaxa due to gastrointestinal bleed at that time. She was admitted to [facility] on 12/19/2018 with altered mental status and had acute hypoxic and hypercapnic respiratory failure, had to be intubated, had acute on chronic combined systolic and diastolic congestive heart failure with bilateral pleural effusion, status post thoracentesis treated with diuretics. She also had a sacral wound and a right thigh hematoma at that time, has chronic kidney disease and acute kidney injury on top of the chronic kidney disease. She also has severe protein-calorie malnutrition, oropharyngeal dysphagia, maintained on nasogastric tube feedings. The patient was weaned off the ventilator, but was on BiPAP also during the night. She had problems with hyponatremia and she was admitted to [facility] 01/10/2019. The patient was found unresponsive and pulseless on the night of 01/15/2019 and was resuscitated. She received CPR and epinephrine and had a pulse and eventually was sent to the Intensive Care Unit at [facility] where she was admitted 01/15/2019. She was intubated at the [facility] at that time of the cardiac arrest and is currently on a ventilator. She is admitted to the hospital for further evaluation and treatment. I actually saw her earlier today. She also has a fever and had some lung infiltrates in her chest x-ray subsequent to the cardiac arrest consistent with aspiration pneumonia, was started on IV apparently vancomycin and Zosyn and switched to Zyvox and Zosyn due to her acute kidney injury as the BUN is up to 70 and creatinine is 2.6, I believe today. ALLERGIES: SULFA. MEDICATIONS: Prior to admission include amiodarone 200 mg b.i.d., vitamin C 125 mg every day, aspirin 325 mg every day, carvedilol 3.125 mg b.i.d., heparin 5000 units subq every 12 hours. She is on Humalog insulin sliding scale, low dose and she is on Zofran 4 mg IV every 6 hours p.r.n., Seroquel 25 mg every 6 hours p.r.n., thiamine 100 mg every day, Seroquel 25 mg b.i.d., mirtazapine 7.5 mg at bedtime, DuoNeb nebulizer treatments b.i.d., furosemide 40 mg IV b.i.d., lisinopril 2.5 mg every day, Pepcid 20 mg at bedtime, atorvastatin 10 mg at bedtime, lisinopril actually was discontinued at the previous hospital due to hyperkalemia and she also received Kayexalate one time at the other hospital for that. PAST MEDICAL HISTORY: Significant for nonischemic cardiomyopathy with left ventricular ejection fraction of 20% in 06/2018. Cardiac catheterization showed mild coronary artery disease. She has a permanent pacemaker placed. An AICD was not placed due to poor prognosis. She had an EGD in 06/2018 for an upper GI bleed, which showed a gastric ulcer and Pradaxa for paroxysmal atrial fibrillation was discontinued at that time. She has a history of paroxysmal atrial fibrillation and chronic kidney disease. SOCIAL HISTORY: Unobtainable. She is on a ventilator. FAMILY HISTORY: Unobtainable. She is on the ventilator. REVIEW OF SYSTEMS: Unobtainable. She is on the ventilator. PHYSICAL EXAMINATION: VITAL SIGNS: Temperature is 100.3, highest temperature yesterday was 102.4 degrees last night, apical pulse is 74, respiratory rate 20, blood pressure 104/48, oxygen saturation 99% on the ventilator. HEENT: Eyes: Gaze appears conjugate when I open and retract her upper eyelids. She was seen earlier today. Mouth, she has an orotracheal tube hooked up to the ventilator. Nose, she had a nasogastric tube. HEART: Reveals an S1, S2. There is no S3 or murmur. LUNGS: Reveal some mild rhonchi anteriorly bilaterally. ABDOMEN: Soft. Nontender. EXTREMITIES: Lower extremities without edema. SKIN: No rashes. LABORATORY DATA: White count 13.0, hemoglobin 7.9, platelet count 260,000, 78 polys and 10 lymphocytes. INR was 1.5 with a PTT of 40. Arterial blood gas showed a pH of 7.43, pCO2 of 44 and a pO2 of 82 this morning. Sodium 141, potassium 4.4, chloride 102, total CO2 is 31, BUN 76, creatinine 2.0, blood sugar is 196, 169 by fingerstick before lunch. SGOT of 100, SGPT of 106, alkaline phosphatase of 214 with a total bilirubin of 0.8 and albumin was 1.3. Procalcitonin was 11.19. She had a chest x-ray done this morning, which showed worsening pulmonary infiltrates and bilateral pleural effusions, most likely secondary to congestive heart failure, but pneumonia cannot be excluded. She also had an echocardiogram done, which showed a left ventricular ejection fraction improving to 40%. ASSESSMENT: 1. Cardiopulmonary arrest. 2. Aspiration pneumonia. 3. Fever. 4. Leukocytosis. 5. Acute kidney injury most likely secondary to the cardiopulmonary arrest. 6. Hypotension with decreased perfusion of the kidney, possible acute tubular necrosis. 7. Elevated liver function tests, which could be either from congestive heart failure or shock lung, although I doubt the latter. 8. Nonischemic cardiomyopathy with improvement of left ventricular ejection fraction 15-20% to 40%. 9. Acute on chronic hypoxic and hypercapnic respiratory failure, on the ventilator. 10. Nonischemic cardiomyopathy. 11. Acute on chronic systolic congestive heart failure. 12. Paroxysmal atrial fibrillation, but not a candidate for Pradaxa due to recent gastrointestinal bleed in 06/2018 from gastric ulcer. 13. Oropharyngeal dysphagia. 14. Diabetes mellitus type 2. 15. Mild coronary artery disease. PLAN: At this time is to consult Dr. France for Pulmonary and Dr. Duke for Cardiology, Dr. Zimmerman and Dr. Hair for Nephrology, Dr. Nguyễn Sun for Infectious Disease. I will continue IV Zyvox and Zosyn and she is admitted to the Intensive Care Unit. She is currently on the ventilator. Continue with the amiodarone. Avoid potential nephrotoxins. Continue the low dose sliding scale. We will continue the aspirin for the coronary artery disease and will continue the famotidine and apparently also on Protonix. We will recheck CBC and CMP tomorrow for elevated liver function tests and consider stopping the atorvastatin if the liver function tests are 3 times abnormal, right now they are about 2-1/2 times. Continue with tracheostomy care and tube feedings. We will order some heparin for deep vein thrombosis prophylaxis and also order renal ultrasound. CHRISTINA CHAVARRIA MD DR: Wu JOB#: [id number] / [id number]
[2019-01-16] MEDS: ATORVASTATIN CALCIUM 10 MG TABLET. PO SCH (20:42)
[2019-01-16] MEDS: MIRTAZAPINE 7.5 MG TABLET. PO SCH (20:42)
[2019-01-16] MEDS: QUEtiapine 25 MG TABLET. PO SCH (20:42)
[2019-01-16] MEDS: FAMOTIDINE 20 MG TABLET. PO SCH (20:42)
[2019-01-16] MEDS: HEPARIN for SUB-Q USE 5,000 UNIT/ML VIAL. SQ SCH (20:43)
[2019-01-16] MEDS ORDERED: VANCOMYCIN 1.25 GM in IV NORMAL SALINE 250ML 250 ML IV SCH (21:00)
[2019-01-16 22:28] LABS: BILIRUBIN,URINE NEGATIVE (NEG); CLARITY,URINE CLEAR; COLOR,URINE YELLOW; NITRITE,URINE NEGATIVE (NEG); PROTEIN,URINE 30 mg/dL (NEG-TRACE)
[2019-01-16 22:32] LABS: RBC,URINE OCC /HPF (0-2)
[2019-01-16 22:33] LABS: BACTERIA,URINE FEW /HPF (0-FEW); YEAST,URINE PRESENT /HPF
[2019-01-17] VITALS (27 sets, daily range): BP systolic 85–116; BP diastolic 44–64
--- NOTE | 2019-01-17 00:12 | RAD ---
Indication: Acute kidney injury. Evaluate for hydronephrosis TECHNIQUE: Grayscale and color Doppler images of the bilateral kidneys and bladder COMPARISON: None FINDINGS: The right kidney measures 12.8 x 6.2 x 4.7 cm without hydronephrosis. IVC is within normal limits. Proximal aortic segment demonstrates no aneurysmal dilation. Main and distal aortic segments aren't visualized due to overlying bowel gas. Bladder is decompressed with Kahn catheter limiting evaluation. Left kidney measures 9.3 x 6.5 x 5.2 cm without hydronephrosis. Trace amount of perisplenic and right lower quadrant ascites. IMPRESSION: No hydronephrosis. Electronically signed by: Alan Bundy DO (01/17/2019 12:09 AM) [facility]
--- NOTE | 2019-01-17 01:40 | CONS ---
DATE OF CONSULTATION: 01/16/2019 REQUESTING PHYSICIAN: Dr. Coats. REASON FOR CONSULTATION: Sepsis. HISTORY OF PRESENT ILLNESS: This is a 73-year-old female who was transferred from [facility]. The patient has multiple medical problems with cardiomyopathy, encephalopathy, diabetes, hypertension, etc. The patient was found to be PEA coded. There CPR was done and then intubated and transferred here for further management. The patient is currently orally intubated, mechanically ventilated as well as requiring vasopressor support. The patient has just started yesterday on vancomycin and Zosyn from [facility] before transfer. The patient is not able to provide any information. There is no nausea, vomiting or diarrhea noted. The patient did have a fever up to 102.4 and leukocytosis. Cultures not been done here. REVIEW OF SYSTEMS: As per HPI, not able to do other than what I mentioned in the HPI through the patient's nurse. PMH : DM,HTN, Cardiomyopathy, Encephalopathy Allergies NKDA SH unable to get PHYSICAL EXAMINATION: GENERAL: Sedated, orally intubated female, not in any distress. VITAL SIGNS: T-max is 102.4. She is on vasopressor support. HEENT: NAD. Both pupils are round and reacting, orally intubated. NECK: Supple, no JVP, no lymphadenopathy. LUNGS: Decreased breath sounds. HEART: S1, S2 regular. No gallop or murmur. ABDOMEN: Soft, nontender. EXTREMITIES: No edema or cyanosis. SKIN: Unremarkable other than multiple areas of bruising as well as sacrococcygeal area of stage 3 decubitus. NEUROLOGIC: The patient was moving all extremities before sedation and intubation. LABORATORY DATA: White count is 13,000, hemoglobin 7.9, platelets are 260,000. BUN and creatinine is 76 and 2.0, AST 100, ALT 106. Chest x-ray showed a small pleural effusion, bibasilar airspace opacity, more so on the left than right. IMPRESSION: 1. Fever. 2. Leukocytosis. 3. Hypotension with sepsis. 4. Respiratory failure requiring intubation and mechanical ventilation. 5. Renal insufficiency. 6. Cardiomyopathy. 7. Encephalopathy. 8. Sacrococcygeal stage 3 decubitus. 9. Cardiac arrhythmia requiring pacemaker in place. 10. Atrial fibrillation. RECOMMENDATION: Would continue Zosyn, discontinue vancomycin, change to Zyvox. We will do the culture as unfortunately not done here, although I believe it may have been done at [facility]. We will check on that. Supportive care and we will continue to follow. Thank you very much, Dr. Coats, for giving me the opportunity to participate in this patient's care. MICHELINE RYAN MD DR: RASHID/nicole JOB#: [id number] / [id number] GIOVANNA
[2019-01-17] MEDS: PIPERACILLIN/TAZOBACTAM 2.25 GM in IV NORMAL SALINE 50ML 50 ML IV SCH ×4 (05:48→23:51)
[2019-01-17] MEDS: NOREPINEPHRIN 8MG/250ML PREMIX 250 ML IV PRN ×2 (05:49→23:53)
[2019-01-17] MEDS: INSULIN LISPRO 300 UNITS/3 ML INSULN.PEN. SQ SCH ×3 (05:49→18:12)
[2019-01-17 05:58] LABS: BASO # 0.1 x10^3/uL (0.0-0.2); BASO % 1 % (0-3); EOS # 0.2 x10^3/uL (0.0-0.7); EOS % 2 % (0-3); HEMOGLOBIN 7.3 g/dL (12.0-15.5); LYMPH # 1.4 x10^3/uL (1.0-4.8); LYMPH % 14 % (24-48); MEAN CORPUSCULAR HEMOGLOBIN 30 pg (25-35); MEAN CORPUSCULAR HGB CONC 32 g/dL (31-37); MEAN CORPUSCULAR VOLUME 93 fL (79-100); MONO # 1.1 x10^3/uL (0.0-1.1); MONO % 11 % (0-9); NEUT # 7.2 x10^3uL (1.8-7.7); NEUT % 72 % (31-73); PLATELET COUNT 226 x10^3/uL (140-400); RED BLOOD COUNT 2.48 x10^6/uL (3.50-5.40); RED CELL DISTRIBUTION WIDTH 20.5 % (11.5-14.5)
[2019-01-17 06:11] LABS: PROTHROMBIN TIME PATIENT 16.1 SEC (11.7-14.0)
[2019-01-17 06:25] LABS: ALBUMIN 1.3 g/dL (3.4-5.0); ALBUMIN/GLOBULIN RATIO 0.4 (1.0-1.7); CALCIUM 7.7 mg/dL (8.5-10.1); CREATININE 1.9 mg/dL (0.6-1.0); GFR 26.1; TOTAL BILIRUBIN 0.7 mg/dL (0.2-1.0); TOTAL PROTEIN 4.7 g/dL (6.4-8.2)
[2019-01-17] MEDS: PANTOPRAZOLE 40 MG TABLET.DR. PO SCH (07:30)
--- NOTE | 2019-01-17 07:53 | PDOC ---
Infectious Disease Note Subjective Subjective awake, on vent, still on vasopressors ROS ROS no n/v/d/ low grade fever Vital Sign Vital Signs Vital Signs Date Time Temp Pulse Resp B/P (MAP) Pulse Ox O2 Delivery O2 Flow Rate FiO2 01/17/19 06:00 89 17 110/58 (75) 99 Ventilator 01/17/19 05:00 100.1 100.1 Physical Exam PHYSICAL EXAM GENERAL: Sedated, orally intubated female, not in any distress. VITAL SIGNS: She is on vasopressor support. HEENT: NAD. Both pupils are round and reacting, orally intubated. NECK: Supple, no JVP, no lymphadenopathy. LUNGS: Decreased breath sounds. HEART: S1, S2 regular. No gallop or murmur. ABDOMEN: Soft, nontender. EXTREMITIES: No edema or cyanosis. SKIN: Unremarkable other than multiple areas of bruising as well as sacrococcygeal area of stage 3 decubitus. NEUROLOGIC: The patient was moving all extremities before sedation and intubation. Labs Lab Laboratory Tests Test 01/16/19 11:20 01/16/19 17:40 01/16/19 22:16 01/16/19 23:55 Glucose (Fingerstick) 169 mg/dL (70-99) 133 mg/dL (70-99) 173 mg/dL (70-99) Urine Collection Type Unknown Urine Color Yellow Urine Clarity Clear Urine pH 5.0 Urine Specific [place] 1.015 Urine Protein 30 mg/dL (NEG-TRACE) Urine Glucose (UA) Negative mg/dL (NEG) Urine Ketones (Stick) Negative mg/dL (NEG) Urine Blood Negative (NEG) Urine Nitrite Negative (NEG) Urine Bilirubin Negative (NEG) Urine Urobilinogen Dipstick 1.0 mg/dL (0.2 mg/dL) Urine Leukocyte Esterase Moderate (NEG) Urine RBC Occ /HPF (0-2) Urine WBC 11-20 /HPF (0-4) Urine Bacteria Few /HPF (0-FEW) Urine Yeast Present /HPF Test 01/17/19 05:45 White Blood Count 10.0 x10^3/uL (4.0-11.0) Red Blood Count 2.48 x10^6/uL (3.50-5.40) Hemoglobin 7.3 g/dL (12.0-15.5) Hematocrit 23.0 % (36.0-47.0) Mean Corpuscular Volume 93 fL (79-100) Mean Corpuscular Hemoglobin 30 pg (25-35) Mean Corpuscular Hemoglobin Concent 32 g/dL (31-37) Red Cell Distribution Width 20.5 % (11.5-14.5) Platelet Count 226 x10^3/uL (140-400) Neutrophils (%) (Auto) 72 % (31-73) Lymphocytes (%) (Auto) 14 % (24-48) Monocytes (%) (Auto) 11 % (0-9) Eosinophils (%) (Auto) 2 % (0-3) Basophils (%) (Auto) 1 % (0-3) Neutrophils # (Auto) 7.2 x10^3uL (1.8-7.7) Lymphocytes # (Auto) 1.4 x10^3/uL (1.0-4.8) Monocytes # (Auto) 1.1 x10^3/uL (0.0-1.1) Eosinophils # (Auto) 0.2 x10^3/uL (0.0-0.7) Basophils # (Auto) 0.1 x10^3/uL (0.0-0.2) Prothrombin Time 16.1 SEC (11.7-14.0) Prothromb Time International Ratio 1.3 (0.8-1.1) Sodium Level 142 mmol/L (136-145) Potassium Level 4.0 mmol/L (3.5-5.1) Chloride Level 105 mmol/L (98-107) Carbon Dioxide Level 31 mmol/L (21-32) Anion Gap 6 (6-14) Blood Urea Nitrogen 65 mg/dL (7-20) Creatinine 1.9 mg/dL (0.6-1.0) Estimated GFR (Cockcroft-Gault) 26.1 BUN/Creatinine Ratio 34 (6-20) Glucose Level 131 mg/dL (70-99) Glucose (Fingerstick) 128 mg/dL (70-99) Calcium Level 7.7 mg/dL (8.5-10.1) Total Bilirubin 0.7 mg/dL (0.2-1.0) Aspartate Amino Transf (AST/SGOT) 52 U/L (15-37) Alanine Aminotransferase (ALT/SGPT) 71 U/L (14-59) Alkaline Phosphatase 200 U/L (46-116) Total Protein 4.7 g/dL (6.4-8.2) Albumin 1.3 g/dL (3.4-5.0) Albumin/Globulin Ratio 0.4 (1.0-1.7) Objective Assessment Fever Respiratory failure Circulatory failure CHF/Cardiomyopathy DM A fib Stage 3 , sacral ulcer Plan Plan of Care cont zosyn and zyvox check cultures supportive care MICHELINE RYAN MD Jan 17, 2019 07:53
[2019-01-17] MEDS: CARVEDILOL 3.125 MG TABLET. PO SCH ×2 (08:00→17:00)
--- NOTE | 2019-01-17 08:08 | RAD ---
Portable chest, 01/17/2019: HISTORY: Respiratory failure Comparison is made to yesterday's study at 3:52 PM. The ET tube tip lies well above the isaiah. A Dobbhoff type tube extends into the stomach. A left PICC extends into the superior aspect of the right atrium. The heart size is unchanged. There are bilateral pleural effusions and patchy pulmonary infiltrates. Allowing for differences in patient positioning the findings are probably unchanged. There is no evidence of pneumothorax. No new abnormality is seen. IMPRESSION: No significant change since yesterday's study. Electronically signed by: Robin Howard MD (01/17/2019 8:05 AM) [facility]
[2019-01-17] MEDS: ALBUTEROL SULFATE 2.5 MG/3 ML NEBU. NEB SCH ×2 (08:24→19:37)
[2019-01-17] MEDS: ASCORBIC ACID 500 MG TABLET PO SCH (08:35)
[2019-01-17] MEDS: AMIODARONE HCL 200 MG TABLET. PO SCH (08:35)
[2019-01-17] MEDS: ASPIRIN 325 MG TABLET PO SCH (08:35)
[2019-01-17] MEDS: THIAMINE 100 MG TABLET. PO SCH (08:37)
[2019-01-17 08:38] LABS: BASE EXCESS ABG 5 mmol/L (-3-3); HCO3 ABG 30 mmol/L (21-28); PCO2 ABG 42 mmHg (35-46); PO2 ABG 97 mmHg (65-108); SAT O2 ABG 97 % (92-99)
[2019-01-17] MEDS: HEPARIN for SUB-Q USE 5,000 UNIT/ML VIAL. SQ SCH ×2 (08:38→21:09)
[2019-01-17 08:43] LABS: FIO2 ABG 40
--- NOTE | 2019-01-17 09:15 | PDOC ---
PULMONARY PROGRESS NOTES Subjective PT SEDATED ON AC MODE Vitals Vital Signs Date Time Temp Pulse Resp B/P (MAP) Pulse Ox O2 Delivery O2 Flow Rate FiO2 01/17/19 08:35 91 107/52 01/17/19 08:21 100 Ventilator 01/17/19 08:00 99.4 16 99.4 Lungs: Crackles Cardiovascular: S1, S2 Abdomen: Soft, Non-tender Extremities: Other (EDEMA) Skin: Warm Labs Laboratory Tests Test 01/15/19 14:15 01/15/19 16:30 01/15/19 16:40 01/15/19 18:34 White Blood Count 13.3 x10^3/uL (4.0-11.0) Red Blood Count 2.91 x10^6/uL (3.50-5.40) Hemoglobin 8.4 g/dL (12.0-15.5) Hematocrit 26.7 % (36.0-47.0) Mean Corpuscular Volume 92 fL (79-100) Mean Corpuscular Hemoglobin 29 pg (25-35) Mean Corpuscular Hemoglobin Concent 31 g/dL (31-37) Red Cell Distribution Width 20.9 % (11.5-14.5) Platelet Count 245 x10^3/uL (140-400) Neutrophils (%) (Auto) 78 % (31-73) Lymphocytes (%) (Auto) 12 % (24-48) Monocytes (%) (Auto) 9 % (0-9) Eosinophils (%) (Auto) 0 % (0-3) Basophils (%) (Auto) 1 % (0-3) Neutrophils # (Auto) 10.4 x10^3uL (1.8-7.7) Lymphocytes # (Auto) 1.5 x10^3/uL (1.0-4.8) Monocytes # (Auto) 1.2 x10^3/uL (0.0-1.1) Eosinophils # (Auto) 0.0 x10^3/uL (0.0-0.7) Basophils # (Auto) 0.1 x10^3/uL (0.0-0.2) Dohle Bodies Present Platelet Estimate Adequate (ADEQUATE) Large Platelets Present Giant Platelets Present Anisocytosis Mod Prothrombin Time 17.7 SEC (11.7-14.0) Prothromb Time International Ratio 1.5 (0.8-1.1) Activated Partial Thromboplast Time 40 SEC (24-38) Sodium Level 128 mmol/L (136-145) Potassium Level 4.7 mmol/L (3.5-5.1) Chloride Level 92 mmol/L (98-107) Carbon Dioxide Level 30 mmol/L (21-32) Anion Gap 6 (6-14) Blood Urea Nitrogen 83 mg/dL (7-20) Creatinine 2.1 mg/dL (0.6-1.0) Estimated GFR (Cockcroft-Gault) 23.2 BUN/Creatinine Ratio 40 (6-20) Glucose Level 450 mg/dL (70-99) Calcium Level 7.7 mg/dL (8.5-10.1) Magnesium Level 2.1 mg/dL (1.8-2.4) Total Bilirubin 1.9 mg/dL (0.2-1.0) Aspartate Amino Transf (AST/SGOT) 188 U/L (15-37) Alanine Aminotransferase (ALT/SGPT) 136 U/L (14-59) Alkaline Phosphatase 224 U/L (46-116) KU-Hvq-O-Type Natriuretic Peptide 3830 pg/mL (0-124) Total Protein 5.5 g/dL (6.4-8.2) Albumin 1.3 g/dL (3.4-5.0) Albumin/Globulin Ratio 0.3 (1.0-1.7) Nasal Screen MRSA (PCR) Negative (Negative) O2 Saturation 97 % (92-99) Arterial Blood pH 7.46 (7.35-7.45) Arterial Blood pCO2 at Patient Temp 38 mmHg (35-46) Arterial Blood pO2 at Patient Temp 101 mmHg (65-108) Arterial Blood HCO3 27 mmol/L (21-28) Arterial Blood Base Excess 3 mmol/L (-3-3) FiO2 50 Glucose (Fingerstick) 212 mg/dL (70-99) Test 01/15/19 20:49 01/16/19 00:06 01/16/19 05:30 01/16/19 05:39 Glucose (Fingerstick) 201 mg/dL (70-99) 196 mg/dL (70-99) 165 mg/dL (70-99) White Blood Count 13.0 x10^3/uL (4.0-11.0) Red Blood Count 2.73 x10^6/uL (3.50-5.40) Hemoglobin 7.9 g/dL (12.0-15.5) Hematocrit 24.9 % (36.0-47.0) Mean Corpuscular Volume 91 fL (79-100) Mean Corpuscular Hemoglobin 29 pg (25-35) Mean Corpuscular Hemoglobin Concent 32 g/dL (31-37) Red Cell Distribution Width 20.5 % (11.5-14.5) Platelet Count 260 x10^3/uL (140-400) Neutrophils (%) (Auto) 78 % (31-73) Lymphocytes (%) (Auto) 10 % (24-48) Monocytes (%) (Auto) 10 % (0-9) Eosinophils (%) (Auto) 1 % (0-3) Basophils (%) (Auto) 1 % (0-3) Neutrophils # (Auto) 10.1 x10^3uL (1.8-7.7) Lymphocytes # (Auto) 1.3 x10^3/uL (1.0-4.8) Monocytes # (Auto) 1.3 x10^3/uL (0.0-1.1) Eosinophils # (Auto) 0.2 x10^3/uL (0.0-0.7) Basophils # (Auto) 0.1 x10^3/uL (0.0-0.2) Sodium Level 141 mmol/L (136-145) Potassium Level 4.4 mmol/L (3.5-5.1) Chloride Level 102 mmol/L (98-107) Carbon Dioxide Level 31 mmol/L (21-32) Anion Gap 8 (6-14) Blood Urea Nitrogen 76 mg/dL (7-20) Creatinine 2.0 mg/dL (0.6-1.0) Estimated GFR (Cockcroft-Gault) 24.6 BUN/Creatinine Ratio 38 (6-20) Glucose Level 196 mg/dL (70-99) Calcium Level 8.0 mg/dL (8.5-10.1) Total Bilirubin 0.8 mg/dL (0.2-1.0) Aspartate Amino Transf (AST/SGOT) 100 U/L (15-37) Alanine Aminotransferase (ALT/SGPT) 106 U/L (14-59) Alkaline Phosphatase 214 U/L (46-116) Total Protein 5.3 g/dL (6.4-8.2) Albumin 1.3 g/dL (3.4-5.0) Albumin/Globulin Ratio 0.3 (1.0-1.7) Procalcitonin 11.19 ng/mL (0.00-0.10) Test 01/16/19 07:00 01/16/19 11:20 01/16/19 17:40 01/16/19 22:16 O2 Saturation 95 % (92-99) Arterial Blood pH 7.43 (7.35-7.45) Arterial Blood pCO2 at Patient Temp 44 mmHg (35-46) Arterial Blood pO2 at Patient Temp 82 mmHg (65-108) Arterial Blood HCO3 29 mmol/L (21-28) Arterial Blood Base Excess 4 mmol/L (-3-3) FiO2 40 Glucose (Fingerstick) 169 mg/dL (70-99) 133 mg/dL (70-99) Urine Collection Type Unknown Urine Color Yellow Urine Clarity Clear Urine pH 5.0 Urine Specific [place] 1.015 Urine Protein 30 mg/dL (NEG-TRACE) Urine Glucose (UA) Negative mg/dL (NEG) Urine Ketones (Stick) Negative mg/dL (NEG) Urine Blood Negative (NEG) Urine Nitrite Negative (NEG) Urine Bilirubin Negative (NEG) Urine Urobilinogen Dipstick 1.0 mg/dL (0.2 mg/dL) Urine Leukocyte Esterase Moderate (NEG) Urine RBC Occ /HPF (0-2) Urine WBC 11-20 /HPF (0-4) Urine Bacteria Few /HPF (0-FEW) Urine Yeast Present /HPF Test 01/16/19 23:55 01/17/19 05:45 01/17/19 08:00 Glucose (Fingerstick) 173 mg/dL (70-99) 128 mg/dL (70-99) White Blood Count 10.0 x10^3/uL (4.0-11.0) Red Blood Count 2.48 x10^6/uL (3.50-5.40) Hemoglobin 7.3 g/dL (12.0-15.5) Hematocrit 23.0 % (36.0-47.0) Mean Corpuscular Volume 93 fL (79-100) Mean Corpuscular Hemoglobin 30 pg (25-35) Mean Corpuscular Hemoglobin Concent 32 g/dL (31-37) Red Cell Distribution Width 20.5 % (11.5-14.5) Platelet Count 226 x10^3/uL (140-400) Neutrophils (%) (Auto) 72 % (31-73) Lymphocytes (%) (Auto) 14 % (24-48) Monocytes (%) (Auto) 11 % (0-9) Eosinophils (%) (Auto) 2 % (0-3) Basophils (%) (Auto) 1 % (0-3) Neutrophils # (Auto) 7.2 x10^3uL (1.8-7.7) Lymphocytes # (Auto) 1.4 x10^3/uL (1.0-4.8) Monocytes # (Auto) 1.1 x10^3/uL (0.0-1.1) Eosinophils # (Auto) 0.2 x10^3/uL (0.0-0.7) Basophils # (Auto) 0.1 x10^3/uL (0.0-0.2) Prothrombin Time 16.1 SEC (11.7-14.0) Prothromb Time International Ratio 1.3 (0.8-1.1) Sodium Level 142 mmol/L (136-145) Potassium Level 4.0 mmol/L (3.5-5.1) Chloride Level 105 mmol/L (98-107) Carbon Dioxide Level 31 mmol/L (21-32) Anion Gap 6 (6-14) Blood Urea Nitrogen 65 mg/dL (7-20) Creatinine 1.9 mg/dL (0.6-1.0) Estimated GFR (Cockcroft-Gault) 26.1 BUN/Creatinine Ratio 34 (6-20) Glucose Level 131 mg/dL (70-99) Calcium Level 7.7 mg/dL (8.5-10.1) Total Bilirubin 0.7 mg/dL (0.2-1.0) Aspartate Amino Transf (AST/SGOT) 52 U/L (15-37) Alanine Aminotransferase (ALT/SGPT) 71 U/L (14-59) Alkaline Phosphatase 200 U/L (46-116) Total Protein 4.7 g/dL (6.4-8.2) Albumin 1.3 g/dL (3.4-5.0) Albumin/Globulin Ratio 0.4 (1.0-1.7) O2 Saturation 97 % (92-99) Arterial Blood pH 7.46 (7.35-7.45) Arterial Blood pCO2 at Patient Temp 42 mmHg (35-46) Arterial Blood pO2 at Patient Temp 97 mmHg (65-108) Arterial Blood HCO3 30 mmol/L (21-28) Arterial Blood Base Excess 5 mmol/L (-3-3) FiO2 40 Laboratory Tests Test 01/16/19 11:20 01/16/19 17:40 01/16/19 22:16 01/16/19 23:55 Glucose (Fingerstick) 169 mg/dL (70-99) 133 mg/dL (70-99) 173 mg/dL (70-99) Urine Collection Type Unknown Urine Color Yellow Urine Clarity Clear Urine pH 5.0 Urine Specific [place] 1.015 Urine Protein 30 mg/dL (NEG-TRACE) Urine Glucose (UA) Negative mg/dL (NEG) Urine Ketones (Stick) Negative mg/dL (NEG) Urine Blood Negative (NEG) Urine Nitrite Negative (NEG) Urine Bilirubin Negative (NEG) Urine Urobilinogen Dipstick 1.0 mg/dL (0.2 mg/dL) Urine Leukocyte Esterase Moderate (NEG) Urine RBC Occ /HPF (0-2) Urine WBC 11-20 /HPF (0-4) Urine Bacteria Few /HPF (0-FEW) Urine Yeast Present /HPF Test 01/17/19 05:45 01/17/19 08:00 White Blood Count 10.0 x10^3/uL (4.0-11.0) Red Blood Count 2.48 x10^6/uL (3.50-5.40) Hemoglobin 7.3 g/dL (12.0-15.5) Hematocrit 23.0 % (36.0-47.0) Mean Corpuscular Volume 93 fL (79-100) Mean Corpuscular Hemoglobin 30 pg (25-35) Mean Corpuscular Hemoglobin Concent 32 g/dL (31-37) Red Cell Distribution Width 20.5 % (11.5-14.5) Platelet Count 226 x10^3/uL (140-400) Neutrophils (%) (Auto) 72 % (31-73) Lymphocytes (%) (Auto) 14 % (24-48) Monocytes (%) (Auto) 11 % (0-9) Eosinophils (%) (Auto) 2 % (0-3) Basophils (%) (Auto) 1 % (0-3) Neutrophils # (Auto) 7.2 x10^3uL (1.8-7.7) Lymphocytes # (Auto) 1.4 x10^3/uL (1.0-4.8) Monocytes # (Auto) 1.1 x10^3/uL (0.0-1.1) Eosinophils # (Auto) 0.2 x10^3/uL (0.0-0.7) Basophils # (Auto) 0.1 x10^3/uL (0.0-0.2) Prothrombin Time 16.1 SEC (11.7-14.0) Prothromb Time International Ratio 1.3 (0.8-1.1) Sodium Level 142 mmol/L (136-145) Potassium Level 4.0 mmol/L (3.5-5.1) Chloride Level 105 mmol/L (98-107) Carbon Dioxide Level 31 mmol/L (21-32) Anion Gap 6 (6-14) Blood Urea Nitrogen 65 mg/dL (7-20) Creatinine 1.9 mg/dL (0.6-1.0) Estimated GFR (Cockcroft-Gault) 26.1 BUN/Creatinine Ratio 34 (6-20) Glucose Level 131 mg/dL (70-99) Glucose (Fingerstick) 128 mg/dL (70-99) Calcium Level 7.7 mg/dL (8.5-10.1) Total Bilirubin 0.7 mg/dL (0.2-1.0) Aspartate Amino Transf (AST/SGOT) 52 U/L (15-37) Alanine Aminotransferase (ALT/SGPT) 71 U/L (14-59) Alkaline Phosphatase 200 U/L (46-116) Total Protein 4.7 g/dL (6.4-8.2) Albumin 1.3 g/dL (3.4-5.0) Albumin/Globulin Ratio 0.4 (1.0-1.7) O2 Saturation 97 % (92-99) Arterial Blood pH 7.46 (7.35-7.45) Arterial Blood pCO2 at Patient Temp 42 mmHg (35-46) Arterial Blood pO2 at Patient Temp 97 mmHg (65-108) Arterial Blood HCO3 30 mmol/L (21-28) Arterial Blood Base Excess 5 mmol/L (-3-3) FiO2 40 Medications Active Scripts Medications Dose Route/Sig Max Daily Dose Days Date Category Vitamin C (Ascorbate Calcium) 500 Mg Tablet 500 Mg PO DAILY 01/15/19 Reported Aspirin 325 Mg Tablet 1 Tab PO DAILY 01/15/19 Reported Coreg (Carvedilol) 3.125 Mg Tablet 3.125 Mg PO BIDWMEALS 01/15/19 Reported Zofran (Ondansetron Hcl) 4 Mg Tablet 4 Mg PO PRN Q6HRS PRN 01/15/19 Reported B-1 (Thiamine HCl) 100 Mg Tablet 100 Mg PO DAILY 01/15/19 Reported Docusate Sodium 100 Mg Capsule 100 Mg PO PRN PRN 01/15/19 Reported Acetaminophen 160 Mg/5 Ml Oral.susp 650 Mg PO PRN Q4HRS PRN 01/15/19 Reported Milk Of Magnesia (Magnesium Hydroxide) 2,400 Mg/10 Ml Oral.susp 2,400 Mg PO PRN PRN 01/15/19 Reported Mirtazapine 7.5 Mg Tablet 7.5 Mg PO QHS 01/15/19 Reported Albuterol Sulfate Neb Soln (Albuterol Sulfate) 2.5 Mg/3 Ml Vial.neb 2.5 Mg NEB BID 01/15/19 Reported Atorvastatin Calcium 10 Mg Tablet 10 Mg PO HS 01/15/19 Reported Lasix (Furosemide) 40 Mg Tablet 40 Mg PO BID 01/15/19 Reported Protonix (Pantoprazole Sodium) 20 Mg Tablet.dr 40 Mg PO DAILY 01/15/19 Reported Amiodarone Hcl 200 Mg Tablet 1 Tab PO DAILY 01/15/19 Reported Seroquel (Quetiapine Fumarate) 25 Mg Tablet 25 Mg PO HS 01/15/19 Reported Tramadol Hcl 50 Mg Tablet 25 Mg PO Q6HRS PRN 01/15/19 Reported Seroquel (Quetiapine Fumarate) 25 Mg Tablet 12.5 Mg PO PRN Q6HRS PRN 01/15/19 Reported Impression . IMPRESSION: 1. Acute respiratory failure, status post cardiopulmonary arrest, the patient transferred from [facility]. 2. Acute on chronic systolic heart failure. 3. Abnormal x-ray compatible with bilateral airspace disease in the lower lobes, possible pneumonia. 4. Type 2 diabetes. 5. Severe protein malnutrition. 6. Thrombocytopenia. 7. History of pacemaker implantation. 8. Prior history of gastric ulcers. 9. ABNORMAL CXR EFFUSION Plan . WILL PROCEED WITH CT CHEST AM SEDATION HOLIDAY WILL CONTINUE SUPPORT AC MODE FOLLOW CARD D/W DR MARINO AT [facility] HE WILL FAX OVER SOME NOTES CCT 30 MIN GISELLA MCNEAL MD Jan 17, 2019 09:15
--- NOTE | 2019-01-17 11:47 | PDOC ---
SUBJECTIVE ROS Off sedation , On pressors, Responding to IVF bolus OBJECTIVE Vital Signs Vital Signs Date Time Temp Pulse Resp B/P (MAP) Pulse Ox O2 Delivery O2 Flow Rate FiO2 01/17/19 10:00 95 16 85/52 (63) 95 Ventilator 01/17/19 08:00 99.4 99.4 I & 0 Intake and Output 01/17/19 07:00 Intake Total 2193.56 ml Output Total 1608 ml Balance 585.56 ml IV Total 1308.56 ml Tube Feeding 685 ml Blood Product IV Normal Saline Flush 200 ml Output Urine Total 1608 ml PHYSICAL EXAM Physical Exam GEN: Intubated HEEN: Intubated , off sedation NECK: Supple CVS: RRR RESP: CTA ant GI: Soft , NT : Kahn + Ext- No LE edema NEuro- Intubated Skin No rash DIAGNOSIS/ASSESSMENT Assessment & Plan NICKIE - Etiology- Cardio -Renal, Post cardiac arrest Baseline Cr at [facility] 0.9 went up to 1.7-1.9 on 01/15 Has been on IV Lasix switched to PO at [facility] Off diuretics, Hypotensive, responds to IV boluses - continue cautiously Renal function stable E-Lytes and acid base stable, Currently no emergent indication for HD Strict I/O, daily weights , Anticipate fluctuations in renal function sec to cardiac Hyperkalemia - at [facility] Currently Normal K Hyponatremia- Resolved Fever- on Abx ID following Respiratory failure- Intubated Non Ischemic 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% Echo 01/16 EF 40% cardiology following Elevated LFT's DM- as per primary A fib - On Amiodarone As per cardiology Sacral ulcer Anemia- Hgb stable Continue supportive care Has significant CMP and her Functional status is poor Discussed with Daughter at bedside COMMENT/RELEVANT DATA Meds Current Medications Medications (Trade) Dose Ordered Sig/Destiny Start Time Stop Time Status Last Admin Dose Admin Acetaminophen (Tylenol) 650 mg PRN Q4HRS PRN 01/16/19 08:15 01/16/19 08:09 650 MG Albuterol Sulfate (Ventolin Neb Soln) 2.5 mg RTBID 01/15/19 20:00 01/17/19 08:24 2.5 MG Amiodarone HCl (Cordarone) 200 mg DAILY 01/16/19 09:00 01/17/19 08:35 200 MG Ascorbic Acid (Vitamin C) 500 mg DAILY 01/16/19 09:00 01/17/19 08:35 500 MG Aspirin (Dieudonne Aspirin) 325 mg DAILY 01/16/19 09:00 01/17/19 08:35 325 MG Atorvastatin Calcium (Lipitor) 10 mg HS 01/15/19 21:00 01/16/19 20:42 10 MG Calcium Gluconate (Calcium Gluconate) 1,000 mg 1X ONCE 01/15/19 15:30 01/15/19 15:31 DC 01/15/19 15:58 1,000 MG Carvedilol (Coreg) 3.125 mg BIDWMEALS 01/15/19 18:30 Dextrose (Dextrose 50%-Water Syringe) 12.5 gm PRN Q15MIN PRN 01/15/19 17:45 Docusate Sodium (Colace) 100 mg PRN DAILY PRN 01/15/19 17:15 Famotidine (Pepcid) 20 mg QHS 01/16/19 21:00 01/16/19 20:42 20 MG Fentanyl Citrate (Fentanyl 2ml Vial) 50 mcg PRN Q2HR PRN 01/15/19 17:15 Furosemide (Lasix) 40 mg [id number] 01/16/19 09:00 01/16/19 10:50 DC Heparin Sodium (Porcine) (Heparin Sodium) 5,000 unit Q12HR 01/16/19 21:00 01/17/19 08:38 5,000 UNIT Insulin Human Lispro (HumaLOG) 0-5 UNITS Q6HRS 01/16/19 00:00 01/16/19 23:57 2 UNITS Linezolid/Dextrose 300 ml @ 300 mls/hr Q12HR 01/16/19 09:00 01/17/19 08:33 300 MLS/HR Magnesium Hydroxide (Milk Of Magnesia) 2,400 mg PRN DAILY PRN 01/15/19 18:45 Midazolam HCl 100 ml @ 5 mls/hr CONT PRN 01/15/19 17:15 01/16/19 02:55 4 MLS/HR Midazolam HCl (Versed) 5 mg 1X ONCE 01/15/19 15:00 01/15/19 15:01 DC 01/15/19 15:59 5 MG Mirtazapine (Remeron) 7.5 mg QHS 01/16/19 21:00 01/16/19 20:42 7.5 MG Norepinephrine Bitartrate 250 ml @ 1.875 mls/ hr CONT PRN 01/15/19 17:00 01/17/19 05:49 18.75 MLS/HR Ondansetron HCl (Zofran Odt) 4 mg PRN Q6HRS PRN 01/15/19 18:45 Pantoprazole Sodium (Protonix) 40 mg DAILYAC 01/16/19 07:30 Piperacillin Sod/ Tazobactam Sod (Zosyn Per Pharmacy) 1 each PRN DAILY PRN 01/15/19 17:45 UNV Piperacillin Sod/ Tazobactam Sod 2.25 gm/Sodium Chloride 50 ml @ 100 mls/hr Q6HRS 01/15/19 18:00 01/17/19 05:48 100 MLS/HR Propofol 50 ml @ As Directed STK-MED ONCE 01/15/19 15:02 01/15/19 15:03 DC Propofol (Diprivan) 200 mg 1X ONCE 01/15/19 15:00 01/15/19 15:06 DC Quetiapine Fumarate (SEROquel) 25 mg QHS 01/15/19 21:00 01/16/19 20:42 25 MG Thiamine Mononitrate (Vitamin B-1) 100 mg DAILY 01/16/19 09:00 01/17/19 08:37 100 MG Tramadol HCl (Ultram) 25 mg PRN Q6HRS PRN 01/15/19 17:15 Vancomycin HCl (Vanco Per Pharmacy) 1 each PRN DAILY PRN 01/15/19 17:45 01/16/19 08:06 DC 01/15/19 21:10 1 EACH Vancomycin HCl (Vancomycin Trough Level) 1 each 1X ONCE 01/17/19 20:30 01/17/19 20:31 Cancel Vancomycin HCl 1.25 gm/Sodium Chloride 250 ml @ 167 mls/hr Q24H 01/16/19 21:00 01/16/19 21:00 DC Vancomycin HCl 2 gm/Sodium Chloride 500 ml @ 250 mls/hr 1X ONCE 01/15/19 20:00 01/15/19 21:59 DC 01/15/19 20:56 250 MLS/HR Lab Laboratory Tests Test 01/16/19 17:40 01/16/19 22:16 01/16/19 23:55 01/17/19 05:45 Glucose (Fingerstick) 133 mg/dL (70-99) 173 mg/dL (70-99) 128 mg/dL (70-99) Urine Collection Type Unknown Urine Color Yellow Urine Clarity Clear Urine pH 5.0 Urine Specific [place] 1.015 Urine Protein 30 mg/dL (NEG-TRACE) Urine Glucose (UA) Negative mg/dL (NEG) Urine Ketones (Stick) Negative mg/dL (NEG) Urine Blood Negative (NEG) Urine Nitrite Negative (NEG) Urine Bilirubin Negative (NEG) Urine Urobilinogen Dipstick 1.0 mg/dL (0.2 mg/dL) Urine Leukocyte Esterase Moderate (NEG) Urine RBC Occ /HPF (0-2) Urine WBC 11-20 /HPF (0-4) Urine Bacteria Few /HPF (0-FEW) Urine Yeast Present /HPF White Blood Count 10.0 x10^3/uL (4.0-11.0) Red Blood Count 2.48 x10^6/uL (3.50-5.40) Hemoglobin 7.3 g/dL (12.0-15.5) Hematocrit 23.0 % (36.0-47.0) Mean Corpuscular Volume 93 fL (79-100) Mean Corpuscular Hemoglobin 30 pg (25-35) Mean Corpuscular Hemoglobin Concent 32 g/dL (31-37) Red Cell Distribution Width 20.5 % (11.5-14.5) Platelet Count 226 x10^3/uL (140-400) Neutrophils (%) (Auto) 72 % (31-73) Lymphocytes (%) (Auto) 14 % (24-48) Monocytes (%) (Auto) 11 % (0-9) Eosinophils (%) (Auto) 2 % (0-3) Basophils (%) (Auto) 1 % (0-3) Neutrophils # (Auto) 7.2 x10^3uL (1.8-7.7) Lymphocytes # (Auto) 1.4 x10^3/uL (1.0-4.8) Monocytes # (Auto) 1.1 x10^3/uL (0.0-1.1) Eosinophils # (Auto) 0.2 x10^3/uL (0.0-0.7) Basophils # (Auto) 0.1 x10^3/uL (0.0-0.2) Prothrombin Time 16.1 SEC (11.7-14.0) Prothromb Time International Ratio 1.3 (0.8-1.1) Sodium Level 142 mmol/L (136-145) Potassium Level 4.0 mmol/L (3.5-5.1) Chloride Level 105 mmol/L (98-107) Carbon Dioxide Level 31 mmol/L (21-32) Anion Gap 6 (6-14) Blood Urea Nitrogen 65 mg/dL (7-20) Creatinine 1.9 mg/dL (0.6-1.0) Estimated GFR (Cockcroft-Gault) 26.1 BUN/Creatinine Ratio 34 (6-20) Glucose Level 131 mg/dL (70-99) Calcium Level 7.7 mg/dL (8.5-10.1) Total Bilirubin 0.7 mg/dL (0.2-1.0) Aspartate Amino Transf (AST/SGOT) 52 U/L (15-37) Alanine Aminotransferase (ALT/SGPT) 71 U/L (14-59) Alkaline Phosphatase 200 U/L (46-116) Total Protein 4.7 g/dL (6.4-8.2) Albumin 1.3 g/dL (3.4-5.0) Albumin/Globulin Ratio 0.4 (1.0-1.7) Test 01/17/19 08:00 O2 Saturation 97 % (92-99) Arterial Blood pH 7.46 (7.35-7.45) Arterial Blood pCO2 at Patient Temp 42 mmHg (35-46) Arterial Blood pO2 at Patient Temp 97 mmHg (65-108) Arterial Blood HCO3 30 mmol/L (21-28) Arterial Blood Base Excess 5 mmol/L (-3-3) FiO2 40 Results All relevant outside records, renal labs, imaging studies, telemetry/EKG's were reviewed. Other Renal US-- The right kidney measures 12.8 x 6.2 x 4.7 cm without hydronephrosis. IVC is within normal limits. Proximal aortic segment demonstrates no aneurysmal dilation. Main and distal aortic segments aren't visualized due to overlying bowel gas. Bladder is decompressed with Kahn catheter limiting evaluation. Left kidney measures 9.3 x 6.5 x 5.2 cm without hydronephrosis. Trace amount of perisplenic and right lower quadrant ascites. IMPRESSION: No hydronephrosis. ECHO 01/16 The Left Ventricle is borderline dilated. Left ventricle systolic function is mild impaired. The Ejection Fraction is estimated at 40%. Septal motion consistent with conduction abnormality. There is global hypokinesis of the left ventricle. There is no significant aortic valvular stenosis. Doppler and Color Flow revealed no significant aortic regurgitation. Doppler and Color-flow revealed trace to mild mitral regurgitation. Doppler and Color Flow revealed trace tricuspid valve regurgitation. ESTEBAN GANDARA MD Jan 17, 2019 11:47
--- NOTE | 2019-01-17 13:19 | NUR ---
SW following. Per last SW note, updates were sent yesterday to [facility]. SW will continue to follow.
--- NOTE | 2019-01-17 15:11 | PDOC ---
PROGRESS NOTES Subjective Subjective seen earlier today. on ventilator. renal ultrasound without hydronephrosis. cxr noted with infiltrates and pleural effusion. lab reviewed. Objective Objective Vital Signs Date Time Temp Pulse Resp B/P (MAP) Pulse Ox O2 Delivery O2 Flow Rate FiO2 01/17/19 13:00 98 22 92/44 (60) 99 Ventilator 01/17/19 12:00 99.0 99.0 Intake and Output 01/17/19 06:59 Intake Total 2193.56 ml Output Total 1683 ml Balance 510.56 ml IV Total 1308.56 ml Tube Feeding 685 ml Blood Product IV Normal Saline Flush 200 ml Output Urine Total 1683 ml Physical Exam Abdomen: Soft Heart: Regular rate, Normal S1, Normal S2 Extremities: Other (trace edema legs) General: Other (sedated) HEENT: Atraumatic Lungs: Other (decreased breath sounds anteriorly) Neuro: Other (sedated) Psych/Mental Status: Other (sedated) Skin: No rashes Assessment Assessment Problems1. Cardiopulmonary arrest. 2. Aspiration pneumonia suspected 3. Fever. 4. Leukocytosis.resolved 5. Acute kidney injury most likely secondary to the cardiopulmonary arrest. 6. Hypotension with decreased perfusion of the kidney 7. Elevated liver function tests improved 8. Nonischemic cardiomyopathy with improvement of left ventricular ejection fraction 15-20% to 40%. 9. Acute on chronic hypoxic and hypercapnic respiratory failure, on the ventilator. 10. Nonischemic cardiomyopathy. 11. Acute on chronic systolic congestive heart failure. 12. Paroxysmal atrial fibrillation, but not a candidate for Pradaxa due to recent gastrointestinal bleed in 06/2018 from gastric ulcer. 13. Oropharyngeal dysphagia. 14. Diabetes mellitus type 2. 15. Mild coronary artery disease. Medical Problems: (1) Cardiac arrest Status: Acute (2) HCAP (healthcare-associated pneumonia) Status: Acute (3) Liver failure Status: Acute Plan Plan of Care ventilator support continue tube feeding continue zyvox and zosyn holding furosemide for now lab and cxr tomorrow heparin for dvt prophylaxis continue protonix Comment Review of Relevant I have reviewed the following items kristen (where applicable) has been applied. Labs Laboratory Tests Test 01/15/19 16:30 01/15/19 16:40 01/15/19 18:34 01/15/19 20:49 Nasal Screen MRSA (PCR) Negative (Negative) O2 Saturation 97 % (92-99) Arterial Blood pH 7.46 (7.35-7.45) Arterial Blood pCO2 at Patient Temp 38 mmHg (35-46) Arterial Blood pO2 at Patient Temp 101 mmHg (65-108) Arterial Blood HCO3 27 mmol/L (21-28) Arterial Blood Base Excess 3 mmol/L (-3-3) FiO2 50 Glucose (Fingerstick) 212 mg/dL (70-99) 201 mg/dL (70-99) Test 01/16/19 00:06 01/16/19 05:30 01/16/19 05:39 01/16/19 07:00 Glucose (Fingerstick) 196 mg/dL (70-99) 165 mg/dL (70-99) White Blood Count 13.0 x10^3/uL (4.0-11.0) Red Blood Count 2.73 x10^6/uL (3.50-5.40) Hemoglobin 7.9 g/dL (12.0-15.5) Hematocrit 24.9 % (36.0-47.0) Mean Corpuscular Volume 91 fL (79-100) Mean Corpuscular Hemoglobin 29 pg (25-35) Mean Corpuscular Hemoglobin Concent 32 g/dL (31-37) Red Cell Distribution Width 20.5 % (11.5-14.5) Platelet Count 260 x10^3/uL (140-400) Neutrophils (%) (Auto) 78 % (31-73) Lymphocytes (%) (Auto) 10 % (24-48) Monocytes (%) (Auto) 10 % (0-9) Eosinophils (%) (Auto) 1 % (0-3) Basophils (%) (Auto) 1 % (0-3) Neutrophils # (Auto) 10.1 x10^3uL (1.8-7.7) Lymphocytes # (Auto) 1.3 x10^3/uL (1.0-4.8) Monocytes # (Auto) 1.3 x10^3/uL (0.0-1.1) Eosinophils # (Auto) 0.2 x10^3/uL (0.0-0.7) Basophils # (Auto) 0.1 x10^3/uL (0.0-0.2) Sodium Level 141 mmol/L (136-145) Potassium Level 4.4 mmol/L (3.5-5.1) Chloride Level 102 mmol/L (98-107) Carbon Dioxide Level 31 mmol/L (21-32) Anion Gap 8 (6-14) Blood Urea Nitrogen 76 mg/dL (7-20) Creatinine 2.0 mg/dL (0.6-1.0) Estimated GFR (Cockcroft-Gault) 24.6 BUN/Creatinine Ratio 38 (6-20) Glucose Level 196 mg/dL (70-99) Calcium Level 8.0 mg/dL (8.5-10.1) Total Bilirubin 0.8 mg/dL (0.2-1.0) Aspartate Amino Transf (AST/SGOT) 100 U/L (15-37) Alanine Aminotransferase (ALT/SGPT) 106 U/L (14-59) Alkaline Phosphatase 214 U/L (46-116) Total Protein 5.3 g/dL (6.4-8.2) Albumin 1.3 g/dL (3.4-5.0) Albumin/Globulin Ratio 0.3 (1.0-1.7) Procalcitonin 11.19 ng/mL (0.00-0.10) O2 Saturation 95 % (92-99) Arterial Blood pH 7.43 (7.35-7.45) Arterial Blood pCO2 at Patient Temp 44 mmHg (35-46) Arterial Blood pO2 at Patient Temp 82 mmHg (65-108) Arterial Blood HCO3 29 mmol/L (21-28) Arterial Blood Base Excess 4 mmol/L (-3-3) FiO2 40 Test 01/16/19 11:20 01/16/19 17:40 01/16/19 22:16 01/16/19 23:55 Glucose (Fingerstick) 169 mg/dL (70-99) 133 mg/dL (70-99) 173 mg/dL (70-99) Urine Collection Type Unknown Urine Color Yellow Urine Clarity Clear Urine pH 5.0 Urine Specific [place] 1.015 Urine Protein 30 mg/dL (NEG-TRACE) Urine Glucose (UA) Negative mg/dL (NEG) Urine Ketones (Stick) Negative mg/dL (NEG) Urine Blood Negative (NEG) Urine Nitrite Negative (NEG) Urine Bilirubin Negative (NEG) Urine Urobilinogen Dipstick 1.0 mg/dL (0.2 mg/dL) Urine Leukocyte Esterase Moderate (NEG) Urine RBC Occ /HPF (0-2) Urine WBC 11-20 /HPF (0-4) Urine Bacteria Few /HPF (0-FEW) Urine Yeast Present /HPF Test 01/17/19 05:45 01/17/19 08:00 01/17/19 12:53 White Blood Count 10.0 x10^3/uL (4.0-11.0) Red Blood Count 2.48 x10^6/uL (3.50-5.40) Hemoglobin 7.3 g/dL (12.0-15.5) Hematocrit 23.0 % (36.0-47.0) Mean Corpuscular Volume 93 fL (79-100) Mean Corpuscular Hemoglobin 30 pg (25-35) Mean Corpuscular Hemoglobin Concent 32 g/dL (31-37) Red Cell Distribution Width 20.5 % (11.5-14.5) Platelet Count 226 x10^3/uL (140-400) Neutrophils (%) (Auto) 72 % (31-73) Lymphocytes (%) (Auto) 14 % (24-48) Monocytes (%) (Auto) 11 % (0-9) Eosinophils (%) (Auto) 2 % (0-3) Basophils (%) (Auto) 1 % (0-3) Neutrophils # (Auto) 7.2 x10^3uL (1.8-7.7) Lymphocytes # (Auto) 1.4 x10^3/uL (1.0-4.8) Monocytes # (Auto) 1.1 x10^3/uL (0.0-1.1) Eosinophils # (Auto) 0.2 x10^3/uL (0.0-0.7) Basophils # (Auto) 0.1 x10^3/uL (0.0-0.2) Prothrombin Time 16.1 SEC (11.7-14.0) Prothromb Time International Ratio 1.3 (0.8-1.1) Sodium Level 142 mmol/L (136-145) Potassium Level 4.0 mmol/L (3.5-5.1) Chloride Level 105 mmol/L (98-107) Carbon Dioxide Level 31 mmol/L (21-32) Anion Gap 6 (6-14) Blood Urea Nitrogen 65 mg/dL (7-20) Creatinine 1.9 mg/dL (0.6-1.0) Estimated GFR (Cockcroft-Gault) 26.1 BUN/Creatinine Ratio 34 (6-20) Glucose Level 131 mg/dL (70-99) Glucose (Fingerstick) 128 mg/dL (70-99) 165 mg/dL (70-99) Calcium Level 7.7 mg/dL (8.5-10.1) Total Bilirubin 0.7 mg/dL (0.2-1.0) Aspartate Amino Transf (AST/SGOT) 52 U/L (15-37) Alanine Aminotransferase (ALT/SGPT) 71 U/L (14-59) Alkaline Phosphatase 200 U/L (46-116) Total Protein 4.7 g/dL (6.4-8.2) Albumin 1.3 g/dL (3.4-5.0) Albumin/Globulin Ratio 0.4 (1.0-1.7) O2 Saturation 97 % (92-99) Arterial Blood pH 7.46 (7.35-7.45) Arterial Blood pCO2 at Patient Temp 42 mmHg (35-46) Arterial Blood pO2 at Patient Temp 97 mmHg (65-108) Arterial Blood HCO3 30 mmol/L (21-28) Arterial Blood Base Excess 5 mmol/L (-3-3) FiO2 40 Laboratory Tests Test 01/16/19 17:40 01/16/19 22:16 01/16/19 23:55 01/17/19 05:45 Glucose (Fingerstick) 133 mg/dL (70-99) 173 mg/dL (70-99) 128 mg/dL (70-99) Urine Collection Type Unknown Urine Color Yellow Urine Clarity Clear Urine pH 5.0 Urine Specific [place] 1.015 Urine Protein 30 mg/dL (NEG-TRACE) Urine Glucose (UA) Negative mg/dL (NEG) Urine Ketones (Stick) Negative mg/dL (NEG) Urine Blood Negative (NEG) Urine Nitrite Negative (NEG) Urine Bilirubin Negative (NEG) Urine Urobilinogen Dipstick 1.0 mg/dL (0.2 mg/dL) Urine Leukocyte Esterase Moderate (NEG) Urine RBC Occ /HPF (0-2) Urine WBC 11-20 /HPF (0-4) Urine Bacteria Few /HPF (0-FEW) Urine Yeast Present /HPF White Blood Count 10.0 x10^3/uL (4.0-11.0) Red Blood Count 2.48 x10^6/uL (3.50-5.40) Hemoglobin 7.3 g/dL (12.0-15.5) Hematocrit 23.0 % (36.0-47.0) Mean Corpuscular Volume 93 fL (79-100) Mean Corpuscular Hemoglobin 30 pg (25-35) Mean Corpuscular Hemoglobin Concent 32 g/dL (31-37) Red Cell Distribution Width 20.5 % (11.5-14.5) Platelet Count 226 x10^3/uL (140-400) Neutrophils (%) (Auto) 72 % (31-73) Lymphocytes (%) (Auto) 14 % (24-48) Monocytes (%) (Auto) 11 % (0-9) Eosinophils (%) (Auto) 2 % (0-3) Basophils (%) (Auto) 1 % (0-3) Neutrophils # (Auto) 7.2 x10^3uL (1.8-7.7) Lymphocytes # (Auto) 1.4 x10^3/uL (1.0-4.8) Monocytes # (Auto) 1.1 x10^3/uL (0.0-1.1) Eosinophils # (Auto) 0.2 x10^3/uL (0.0-0.7) Basophils # (Auto) 0.1 x10^3/uL (0.0-0.2) Prothrombin Time 16.1 SEC (11.7-14.0) Prothromb Time International Ratio 1.3 (0.8-1.1) Sodium Level 142 mmol/L (136-145) Potassium Level 4.0 mmol/L (3.5-5.1) Chloride Level 105 mmol/L (98-107) Carbon Dioxide Level 31 mmol/L (21-32) Anion Gap 6 (6-14) Blood Urea Nitrogen 65 mg/dL (7-20) Creatinine 1.9 mg/dL (0.6-1.0) Estimated GFR (Cockcroft-Gault) 26.1 BUN/Creatinine Ratio 34 (6-20) Glucose Level 131 mg/dL (70-99) Calcium Level 7.7 mg/dL (8.5-10.1) Total Bilirubin 0.7 mg/dL (0.2-1.0) Aspartate Amino Transf (AST/SGOT) 52 U/L (15-37) Alanine Aminotransferase (ALT/SGPT) 71 U/L (14-59) Alkaline Phosphatase 200 U/L (46-116) Total Protein 4.7 g/dL (6.4-8.2) Albumin 1.3 g/dL (3.4-5.0) Albumin/Globulin Ratio 0.4 (1.0-1.7) Test 01/17/19 08:00 01/17/19 12:53 O2 Saturation 97 % (92-99) Arterial Blood pH 7.46 (7.35-7.45) Arterial Blood pCO2 at Patient Temp 42 mmHg (35-46) Arterial Blood pO2 at Patient Temp 97 mmHg (65-108) Arterial Blood HCO3 30 mmol/L (21-28) Arterial Blood Base Excess 5 mmol/L (-3-3) FiO2 40 Glucose (Fingerstick) 165 mg/dL (70-99) Medications Current Medications Propofol (Diprivan) 200 mg 1X ONCE IV ; Start 01/15/19 at 15:00; Stop 01/15/19 at 15:06; Status DC Midazolam HCl (Versed) 5 mg 1X ONCE IV Last administered on 01/15/19at 15:59; Start 01/15/19 at 15:00; Stop 01/15/19 at 15:01; Status DC Propofol 50 ml @ As Directed STK-MED ONCE IV ; Start 01/15/19 at 15:02; Stop 01/15/19 at 15:03; Status DC Midazolam HCl 100 ml @ 0 mls/hr 1X ONCE IV Last administered on 01/15/19at 15:19; Start 01/15/19 at 15:15; Stop 01/15/19 at 15:16; Status DC Calcium Gluconate (Calcium Gluconate) 1,000 mg 1X ONCE IVP Last administered on 01/15/19at 15:58; Start 01/15/19 at 15:30; Stop 01/15/19 at 15:31; Status DC Norepinephrine Bitartrate 250 ml @ 1.875 mls/ hr CONT PRN IV SEE I/O RECORD Last administered on 01/17/19at 05:49; Start 01/15/19 at 17:00 Piperacillin Sod/ Tazobactam Sod (Zosyn Per Pharmacy) 1 each PRN DAILY PRN MC SEE COMMENTS; Start 01/15/19 at 17:15 Albuterol Sulfate (Ventolin Neb Soln) 2.5 mg PRN Q4HRS PRN NEB SHORTNESS OF BREATH; Start 01/15/19 at 17:15 Midazolam HCl 100 ml @ 5 mls/hr CONT PRN IV SEE I/O RECORD Last administered on 01/16/19at 02:55; Start 01/15/19 at 17:15 Fentanyl Citrate (Fentanyl 2ml Vial) 50 mcg PRN Q2HR PRN IV PAIN; Start 01/15/19 at 17:15 Piperacillin Sod/ Tazobactam Sod 2.25 gm/Sodium Chloride 50 ml @ 100 mls/hr Q6HRS IV Last administered on 01/17/19at 12:49; Start 01/15/19 at 18:00 Albuterol Sulfate (Ventolin Neb Soln) 2.5 mg RTBID NEB Last administered on 01/17/19at 08:24; Start 01/15/19 at 20:00 Amiodarone HCl (Cordarone) 200 mg DAILY PO Last administered on 01/17/19at 08:35; Start 01/16/19 at 09:00 Aspirin (51wan Aspirin) 325 mg DAILY PO Last administered on 01/17/19at 08:35; Start 01/16/19 at 09:00 Atorvastatin Calcium (Lipitor) 10 mg HS PO Last administered on 01/16/19at 20:42; Start 01/15/19 at 21:00 Carvedilol (Coreg) 3.125 mg BIDWMEALS PO ; Start 01/15/19 at 18:30 Docusate Sodium (Colace) 100 mg PRN DAILY PRN PO hard stools; Start 01/15/19 at 17:15 Furosemide (Lasix) 40 mg BID94 PO ; Start 01/16/19 at 09:00; Stop 01/16/19 at 10:50; Status DC Mirtazapine (Remeron) 7.5 mg DAILY PO ; Start 01/16/19 at 09:00; Stop 01/16/19 at 09:00; Status DC Tramadol HCl (Ultram) 25 mg PRN Q6HRS PRN PO MILD TO MODERATE PAIN; Start 01/15/19 at 17:15 Acetaminophen (Tylenol) 650 mg PRN Q4HRS PRN PO FEVER Last administered on 01/15/19at 20:57; Start 01/15/19 at 17:15; Stop 01/16/19 at 08:07; Status DC Ascorbic Acid (Vitamin C) 500 mg DAILY PO Last administered on 01/17/19at 08:35; Start 01/16/19 at 09:00 Magnesium Hydroxide (Milk Of Magnesia) 2,400 mg PRN DAILY PRN PO CONSTIPATION; Start 01/15/19 at 18:45 Ondansetron HCl (Zofran Odt) 4 mg PRN Q6HRS PRN PO NAUSEA/VOMITING; Start 01/15/19 at 18:45 Pantoprazole Sodium (Protonix) 40 mg DAILYAC PO ; Start 01/16/19 at 07:30 Quetiapine Fumarate (SEROquel) 12.5 mg PRN Q6HRS PRN PO AGITATION; Start 01/15/19 at 17:15 Quetiapine Fumarate (SEROquel) 25 mg QHS PO Last administered on 01/16/19at 20:42; Start 01/15/19 at 21:00 Thiamine Mononitrate (Vitamin B-1) 100 mg DAILY PO Last administered on 01/17/19at 08:37; Start 01/16/19 at 09:00 Vancomycin HCl (Vanco Per Pharmacy) 1 each PRN DAILY PRN MC SEE COMMENTS Last administered on 01/15/19at 21:10; Start 01/15/19 at 17:45; Stop 01/16/19 at 08:06; Status DC Piperacillin Sod/ Tazobactam Sod (Zosyn Per Pharmacy) 1 each PRN DAILY PRN MC SEE COMMENTS; Start 01/15/19 at 17:45; Status UNV Insulin Human Lispro (HumaLOG) 0-5 UNITS TIDWMEALS SQ ; Start 01/16/19 at 08:00; Stop 01/16/19 at 08:00; Status DC Dextrose (Dextrose 50%-Water Syringe) 12.5 gm PRN Q15MIN PRN IV SEE COMMENTS; Start 01/15/19 at 17:45 Vancomycin HCl 2 gm/Sodium Chloride 500 ml @ 250 mls/hr 1X ONCE IV Last administered on 01/15/19at 20:56; Start 01/15/19 at 20:00; Stop 01/15/19 at 21:59; Status DC Insulin Human Lispro (HumaLOG) 0-5 UNITS Q6HRS SQ Last administered on 01/17/19at 12:56; Start 01/16/19 at 00:00 Vancomycin HCl 1.25 gm/Sodium Chloride 250 ml @ 167 mls/hr Q24H IV ; Start 01/16/19 at 21:00; Stop 01/16/19 at 21:00; Status DC Vancomycin HCl (Vancomycin Trough Level) 1 each 1X ONCE MC ; Start 01/17/19 at 20:30; Stop 01/17/19 at 20:31; Status Cancel Mirtazapine (Remeron) 7.5 mg QHS PO Last administered on 01/16/19at 20:42; Start 01/16/19 at 21:00 Linezolid/Dextrose 300 ml @ 300 mls/hr Q12HR IV Last administered on 01/17/19at 08:33; Start 01/16/19 at 09:00 Acetaminophen (Tylenol) 650 mg PRN Q4HRS PRN PEG MILD PAIN / TEMP Last administered on 01/16/19at 08:09; Start 01/16/19 at 08:15 Famotidine (Pepcid) 20 mg QHS PO Last administered on 01/16/19at 20:42; Start 01/16/19 at 21:00 Heparin Sodium (Porcine) (Heparin Sodium) 5,000 unit Q12HR SQ Last administered on 01/17/19at 08:38; Start 01/16/19 at 21:00 Active Scripts Active Reported Vitamin C (Ascorbate Calcium) 500 Mg Tablet 500 Mg PO DAILY Aspirin 325 Mg Tablet 1 Tab PO DAILY Coreg (Carvedilol) 3.125 Mg Tablet 3.125 Mg PO BIDWMEALS Zofran (Ondansetron Hcl) 4 Mg Tablet 4 Mg PO PRN Q6HRS PRN B-1 (Thiamine HCl) 100 Mg Tablet 100 Mg PO DAILY Docusate Sodium 100 Mg Capsule 100 Mg PO PRN PRN Acetaminophen 160 Mg/5 Ml Oral.susp 650 Mg PO PRN Q4HRS PRN Milk Of Magnesia (Magnesium Hydroxide) 2,400 Mg/10 Ml Oral.susp 2,400 Mg PO PRN PRN Mirtazapine 7.5 Mg Tablet 7.5 Mg PO QHS Albuterol Sulfate Neb Soln (Albuterol Sulfate) 2.5 Mg/3 Ml Vial.neb 2.5 Mg NEB BID Atorvastatin Calcium 10 Mg Tablet 10 Mg PO HS Lasix (Furosemide) 40 Mg Tablet 40 Mg PO BID Protonix (Pantoprazole Sodium) 20 Mg Tablet.dr 40 Mg PO DAILY Amiodarone Hcl 200 Mg Tablet 1 Tab PO DAILY Seroquel (Quetiapine Fumarate) 25 Mg Tablet 25 Mg PO HS Tramadol Hcl 50 Mg Tablet 25 Mg PO Q6HRS PRN Seroquel (Quetiapine Fumarate) 25 Mg Tablet 12.5 Mg PO PRN Q6HRS PRN Vitals/I & O Vital Sign - Last 24 Hours 01/16/19 01/16/19 01/16/19 01/16/19 16:00 16:00 16:10 17:00 Temp 101.1 101.1 Pulse 99 93 Resp 16 16 B/P (MAP) 113/62 (79) 119/61 (80) Pulse Ox 97 97 98 O2 Delivery Mechanical Ventilator Ventilator Ventilator Ventilator 01/16/19 01/16/19 01/16/19 01/16/19 18:00 18:13 19:00 19:45 Pulse 94 94 Resp 16 20 B/P (MAP) 113/56 (75) 123/52 (75) Pulse Ox 98 97 100 O2 Delivery Ventilator Ventilator Ventilator Mechanical Ventilator 01/16/19 01/16/19 01/16/19 01/16/19 20:00 20:12 21:00 22:00 Temp 100.0 100.0 Pulse 93 94 98 Resp 17 14 18 B/P (MAP) 117/52 (73) 101/52 (68) 94/49 (64) Pulse Ox 100 96 98 98 O2 Delivery Ventilator Ventilator Ventilator Ventilator 01/16/19 01/16/19 01/17/19 01/17/19 23:00 23:45 00:00 00:00 Temp 100.1 100.1 Pulse 90 95 Resp 23 24 B/P (MAP) 88/46 (60) 111/50 (70) Pulse Ox 98 96 98 O2 Delivery Ventilator Ventilator Mechanical Ventilator Ventilator 01/17/19 01/17/19 01/17/19 01/17/19 01:00 01:15 01:40 02:00 Pulse 94 94 93 Resp 24 16 17 B/P (MAP) 92/45 (61) 102/46 (64) 107/53 (71) Pulse Ox 100 100 100 100 O2 Delivery Ventilator Ventilator Ventilator Ventilator 01/17/19 01/17/19 01/17/19 01/17/19 02:16 03:00 03:30 04:00 Pulse 90 90 87 Resp 16 16 16 B/P (MAP) 103/54 (70) 103/54 (70) 92/47 (62) Pulse Ox 98 99 99 99 O2 Delivery Ventilator Ventilator Ventilator Ventilator 01/17/19 01/17/19 01/17/19 01/17/19 04:00 05:00 06:00 07:00 Temp 100.1 100.1 Pulse 92 89 92 Resp 16 17 17 B/P (MAP) 103/51 (68) 110/58 (75) 114/55 (74) Pulse Ox 100 99 99 O2 Delivery Mechanical Ventilator Ventilator Ventilator Ventilator 01/17/19 01/17/19 01/17/19 01/17/19 08:00 08:00 08:21 08:35 Temp 99.4 99.4 Pulse 87 91 Resp 16 B/P (MAP) 103/47 (65) 107/52 Pulse Ox 99 100 O2 Delivery Ventilator Mechanical Ventilator Ventilator 01/17/19 01/17/19 01/17/19 01/17/19 09:00 10:00 11:00 12:00 Temp 99.0 99.0 Pulse 92 95 98 98 Resp 17 16 16 16 B/P (MAP) 100/49 (66) 85/52 (63) 85/52 (63) 107/55 (72) Pulse Ox 98 95 100 100 O2 Delivery Ventilator Ventilator Ventilator Ventilator 01/17/19 01/17/19 12:00 13:00 Pulse 98 Resp 22 B/P (MAP) 92/44 (60) Pulse Ox 99 O2 Delivery Mechanical Ventilator Ventilator Intake and Output 01/16/19 01/16/19 01/17/19 14:59 22:59 06:59 Intake Total 358.8 ml 738.76 ml 1096 ml Output Total 533 ml 580 ml 570 ml Balance -174.2 ml 158.76 ml 526 ml CHRISTINA CHAVARRIA MD Jan 17, 2019 15:11
--- NOTE | 2019-01-17 15:49 | PDOC ---
[facility] Progress Notes Date and Time Date of Service 01/17/2019 Time of Evaluation 1150 Subjective Subjective: Other (vent) Vitals Vitals Vital Signs Date Time Temp Pulse Resp B/P (MAP) Pulse Ox O2 Delivery O2 Flow Rate FiO2 01/17/19 13:00 98 22 92/44 (60) 99 Ventilator 01/17/19 12:00 99.0 99.0 Weight Weight [ ] Input and Output Intake and Output Intake and Output 01/17/19 07:00 Intake Total 2193.56 ml Output Total 1608 ml Balance 585.56 ml IV Total 1308.56 ml Tube Feeding 685 ml Blood Product IV Normal Saline Flush 200 ml Output Urine Total 1608 ml Laboratory Labs Laboratory Tests Test 01/16/19 17:40 01/16/19 22:16 01/16/19 23:55 01/17/19 05:45 Glucose (Fingerstick) 133 mg/dL (70-99) 173 mg/dL (70-99) 128 mg/dL (70-99) Urine Collection Type Unknown Urine Color Yellow Urine Clarity Clear Urine pH 5.0 Urine Specific [place] 1.015 Urine Protein 30 mg/dL (NEG-TRACE) Urine Glucose (UA) Negative mg/dL (NEG) Urine Ketones (Stick) Negative mg/dL (NEG) Urine Blood Negative (NEG) Urine Nitrite Negative (NEG) Urine Bilirubin Negative (NEG) Urine Urobilinogen Dipstick 1.0 mg/dL (0.2 mg/dL) Urine Leukocyte Esterase Moderate (NEG) Urine RBC Occ /HPF (0-2) Urine WBC 11-20 /HPF (0-4) Urine Bacteria Few /HPF (0-FEW) Urine Yeast Present /HPF White Blood Count 10.0 x10^3/uL (4.0-11.0) Red Blood Count 2.48 x10^6/uL (3.50-5.40) Hemoglobin 7.3 g/dL (12.0-15.5) Hematocrit 23.0 % (36.0-47.0) Mean Corpuscular Volume 93 fL (79-100) Mean Corpuscular Hemoglobin 30 pg (25-35) Mean Corpuscular Hemoglobin Concent 32 g/dL (31-37) Red Cell Distribution Width 20.5 % (11.5-14.5) Platelet Count 226 x10^3/uL (140-400) Neutrophils (%) (Auto) 72 % (31-73) Lymphocytes (%) (Auto) 14 % (24-48) Monocytes (%) (Auto) 11 % (0-9) Eosinophils (%) (Auto) 2 % (0-3) Basophils (%) (Auto) 1 % (0-3) Neutrophils # (Auto) 7.2 x10^3uL (1.8-7.7) Lymphocytes # (Auto) 1.4 x10^3/uL (1.0-4.8) Monocytes # (Auto) 1.1 x10^3/uL (0.0-1.1) Eosinophils # (Auto) 0.2 x10^3/uL (0.0-0.7) Basophils # (Auto) 0.1 x10^3/uL (0.0-0.2) Prothrombin Time 16.1 SEC (11.7-14.0) Prothromb Time International Ratio 1.3 (0.8-1.1) Sodium Level 142 mmol/L (136-145) Potassium Level 4.0 mmol/L (3.5-5.1) Chloride Level 105 mmol/L (98-107) Carbon Dioxide Level 31 mmol/L (21-32) Anion Gap 6 (6-14) Blood Urea Nitrogen 65 mg/dL (7-20) Creatinine 1.9 mg/dL (0.6-1.0) Estimated GFR (Cockcroft-Gault) 26.1 BUN/Creatinine Ratio 34 (6-20) Glucose Level 131 mg/dL (70-99) Calcium Level 7.7 mg/dL (8.5-10.1) Total Bilirubin 0.7 mg/dL (0.2-1.0) Aspartate Amino Transf (AST/SGOT) 52 U/L (15-37) Alanine Aminotransferase (ALT/SGPT) 71 U/L (14-59) Alkaline Phosphatase 200 U/L (46-116) Total Protein 4.7 g/dL (6.4-8.2) Albumin 1.3 g/dL (3.4-5.0) Albumin/Globulin Ratio 0.4 (1.0-1.7) Test 01/17/19 08:00 01/17/19 12:53 O2 Saturation 97 % (92-99) Arterial Blood pH 7.46 (7.35-7.45) Arterial Blood pCO2 at Patient Temp 42 mmHg (35-46) Arterial Blood pO2 at Patient Temp 97 mmHg (65-108) Arterial Blood HCO3 30 mmol/L (21-28) Arterial Blood Base Excess 5 mmol/L (-3-3) FiO2 40 Glucose (Fingerstick) 165 mg/dL (70-99) Physical Exam HEENT: Neck Supple W Full Motion Chest: Symmetric LUNGS: Other (intubated/mechanical vent) Heart: RRR (SR LBBB) Abdomen: Soft N/T Extremities: No Edema Neurology: other (off sedation) Assessment Assessment 1. S/p cardiopulmonary arrest at [facility] 01/14/19. unclear rhythm, suspect hypoxia induced. Current EF better at 40% 2. Acute and chronic respiratory failure: multifactorial PNA, CHF, aspiration. Off sedation, weaning process in regards to vent in process. 3. Acute on chronic systolic heart failure 4. NICM; LVEF 15-20% now at 40% 5. NICKIE on CKD3 6. Anemia; hgb 7.3 with hx of PUD 7. Leukocytosis/fever: ID following 8. DM2/HLP 9. s/p PPM ([employer]) 10. PAFIB; maintaining SR LBBB. Previously on Pradaxa, but discontinued due to GI bleed 11. Protein-calorie malnutrition Recommendations [employer] to interrogate device Resume BP meds when off levophed. Continue with amiodarone. Mild diuresis with monitoring of renal function. CT chest pending Continue Amiodarone for rhythm maintenance ASA for stroke prevention as patient is poor candidate for OAC given h/o GI bleeding Hold ACEi with NICKIE YURIY BEST APRN Jan 17, 2019 15:49
[2019-01-17 16:35] LABS: BASE EXCESS ABG 4 mmol/L (-3-3); FIO2 ABG 40; HCO3 ABG 30 mmol/L (21-28); PCO2 ABG 49 mmHg (35-46); PO2 ABG 111 mmHg (65-108); SAT O2 ABG 97 % (92-99)
--- NOTE | 2019-01-17 17:19 | RAD ---
CT of the chest without contrast 01/17/2019 INDICATION: Pleural effusions COMPARISON STUDY: Chest radiograph, earlier today FINDINGS: Multidetector CT imaging of the chest was performed without contrast. Support lines and tubes noted. There is an endotracheal tube with tip 3 cm above the isaiah. There is a left upper extremity PICC line with tip at the cavoatrial junction. There is an enteric tube extending into the stomach. There is a metallic density foreign body projecting over the right ventricle. This is consistent with a leadless Pacemaking device. Motion artifact obscures this finding. Mild cardiomegaly is seen. No significant pericardial effusion is identified. There are bilateral pleural effusions large to large on the left and moderate on the right. Fluid tracking in the fissures noted, particularly on the right. Underlying areas of atelectasis are seen bilaterally. Underlying infiltrate cannot be excluded. Limited noncontrast enhanced evaluation of the upper abdomen demonstrates a small amount of ascites. Splenic artery calcification noted. Degenerative changes of thoracic spine are seen without evidence of acute osseous abnormality. IMPRESSION: 1. Cardiomegaly. Intralobular septal thickening and patchy groundglass opacities are seen consistent with edema. 2. Large left pleural effusion, moderate right pleural effusion with underlying atelectasis. Underlying infiltrates are not excluded 3. Mild ascites in the upper abdomen 4. Endotracheal tube and PICC line normally positioned. Enteric tube extending into the stomach. CT DOSING PQRS STATEMENT: One or more of the following individualized dose reduction techniques were utilized for this examination: 1. Automated exposure control 2. Adjustment of the mA and/or kV according to patient size 3. Use of iterative reconstruction technique Electronically signed by: Tanner Patel MD (01/17/2019 4:59 PM) [id number]
[2019-01-17] MEDS ORDERED: IV NORMAL SALINE 500ML BAG 500 ML IV PRN (19:15)
[2019-01-17] MEDS: fentaNYL PF VIAL 100 MCG/2 ML VIAL IV PRN (19:37)
[2019-01-17] MEDS: QUEtiapine 25 MG TABLET. PO SCH (21:08)
[2019-01-17] MEDS: FAMOTIDINE 20 MG TABLET. PO SCH (21:08)
[2019-01-17] MEDS: MIRTAZAPINE 7.5 MG TABLET. PO SCH (21:08)
[2019-01-17] MEDS: ATORVASTATIN CALCIUM 10 MG TABLET. PO SCH (21:08)
[2019-01-17] MEDS: MIDAZOLAM 100mg/100ml NS BAG 100 ML IV PRN (23:52)
[2019-01-18] VITALS (34 sets, daily range): BP systolic 67–130; BP diastolic 40–73
[2019-01-18] MEDS: INSULIN LISPRO 300 UNITS/3 ML INSULN.PEN. SQ SCH ×4 (00:01→17:49)
--- NOTE | 2019-01-18 04:00 | NUR ---
Patient's residual continues to be >120, with this check residual 150CC; all residual wasted and Tube feeding decreased to 20CC/HR. Will increase as residuals improve.
[2019-01-18] MEDS: PIPERACILLIN/TAZOBACTAM 2.25 GM in IV NORMAL SALINE 50ML 50 ML IV SCH ×3 (05:41→17:45)
[2019-01-18 06:55] LABS: BASO # 0.1 x10^3/uL (0.0-0.2); BASO % 1 % (0-3); EOS # 0.3 x10^3/uL (0.0-0.7); EOS % 3 % (0-3); HEMATOCRIT 23.2 % (36.0-47.0); HEMOGLOBIN 7.3 g/dL (12.0-15.5); LYMPH # 1.1 x10^3/uL (1.0-4.8); LYMPH % 12 % (24-48); MEAN CORPUSCULAR HEMOGLOBIN 30 pg (25-35); MEAN CORPUSCULAR HGB CONC 32 g/dL (31-37); MEAN CORPUSCULAR VOLUME 93 fL (79-100); MONO # 0.9 x10^3/uL (0.0-1.1); MONO % 11 % (0-9); NEUT # 6.3 x10^3uL (1.8-7.7); NEUT % 73 % (31-73); PLATELET COUNT 199 x10^3/uL (140-400); RED BLOOD COUNT 2.49 x10^6/uL (3.50-5.40); RED CELL DISTRIBUTION WIDTH 20.4 % (11.5-14.5); WHITE BLOOD COUNT 8.6 x10^3/uL (4.0-11.0)
[2019-01-18 07:01] LABS: CALCIUM 7.7 mg/dL (8.5-10.1); GFR 15.4; POTASSIUM 3.6 mmol/L (3.5-5.1)
--- NOTE | 2019-01-18 07:43 | RAD ---
Portable chest, 01/18/2019: HISTORY: Respiratory failure Comparison is made to yesterday morning's exam. The patient is rotated to the right. The ET tube tip lies well above the isaiah. A left PICC extends to the level the atrial caval junction. A Dobbhoff type tube extends into the stomach. A small electronic device is again noted projected over the inferior aspect of the heart near the midline. The heart is enlarged. There are mild ongoing patchy pulmonary infiltrates compatible with pulmonary edema. Left-sided pleural fluid is unchanged. Known right-sided pleural fluid is not clearly delineated on this current portable exam. No new abnormality is detected. IMPRESSION: 1. Stable tube positions. 2. Unchanged pulmonary infiltrates and pleural effusions compatible with congestive heart failure. Electronically signed by: Robin Howard MD (01/18/2019 7:40 AM) [facility]
[2019-01-18] MEDS: PANTOPRAZOLE 40 MG TABLET.DR. PO SCH (07:52)
[2019-01-18] MEDS: ASPIRIN 325 MG TABLET PO SCH (07:52)
[2019-01-18] MEDS: ASCORBIC ACID 500 MG TABLET PO SCH (07:52)
[2019-01-18] MEDS: THIAMINE 100 MG TABLET. PO SCH (07:53)
[2019-01-18] MEDS: AMIODARONE HCL 200 MG TABLET. PO SCH (07:53)
[2019-01-18] MEDS: CARVEDILOL 3.125 MG TABLET. PO SCH (08:00)
--- NOTE | 2019-01-18 08:29 | PDOC ---
Infectious Disease Note Subjective Subjective awake, on vent, still on vasopressors ROS ROS no n/v/d/ Vital Sign Vital Signs Vital Signs Date Time Temp Pulse Resp B/P (MAP) Pulse Ox O2 Delivery O2 Flow Rate FiO2 01/18/19 07:53 79 117/58 01/18/19 07:00 15 100 Ventilator 01/18/19 04:00 98.6 98.6 Physical Exam PHYSICAL EXAM GENERAL: Sedated, orally intubated female, not in any distress. VITAL SIGNS: She is on vasopressor support. HEENT: NAD. Both pupils are round and reacting, orally intubated. NECK: Supple, no JVP, no lymphadenopathy. LUNGS: Decreased breath sounds. HEART: S1, S2 regular. No gallop or murmur. ABDOMEN: Soft, nontender. EXTREMITIES: No edema or cyanosis. SKIN: Unremarkable other than multiple areas of bruising as well as sacrococcygeal area of stage 3 decubitus. NEUROLOGIC: The patient was moving all extremities before sedation and intubation. Labs Lab Laboratory Tests Test 01/17/19 12:53 01/17/19 15:05 01/17/19 18:08 01/17/19 23:59 Glucose (Fingerstick) 165 mg/dL (70-99) 170 mg/dL (70-99) 193 mg/dL (70-99) O2 Saturation 97 % (92-99) Arterial Blood pH 7.40 (7.35-7.45) Arterial Blood pCO2 at Patient Temp 49 mmHg (35-46) Arterial Blood pO2 at Patient Temp 111 mmHg (65-108) Arterial Blood HCO3 30 mmol/L (21-28) Arterial Blood Base Excess 4 mmol/L (-3-3) FiO2 40 Test 01/18/19 05:44 01/18/19 06:30 Glucose (Fingerstick) 149 mg/dL (70-99) White Blood Count 8.6 x10^3/uL (4.0-11.0) Red Blood Count 2.49 x10^6/uL (3.50-5.40) Hemoglobin 7.3 g/dL (12.0-15.5) Hematocrit 23.2 % (36.0-47.0) Mean Corpuscular Volume 93 fL (79-100) Mean Corpuscular Hemoglobin 30 pg (25-35) Mean Corpuscular Hemoglobin Concent 32 g/dL (31-37) Red Cell Distribution Width 20.4 % (11.5-14.5) Platelet Count 199 x10^3/uL (140-400) Neutrophils (%) (Auto) 73 % (31-73) Lymphocytes (%) (Auto) 12 % (24-48) Monocytes (%) (Auto) 11 % (0-9) Eosinophils (%) (Auto) 3 % (0-3) Basophils (%) (Auto) 1 % (0-3) Neutrophils # (Auto) 6.3 x10^3uL (1.8-7.7) Lymphocytes # (Auto) 1.1 x10^3/uL (1.0-4.8) Monocytes # (Auto) 0.9 x10^3/uL (0.0-1.1) Eosinophils # (Auto) 0.3 x10^3/uL (0.0-0.7) Basophils # (Auto) 0.1 x10^3/uL (0.0-0.2) Sodium Level 142 mmol/L (136-145) Potassium Level 3.6 mmol/L (3.5-5.1) Chloride Level 105 mmol/L (98-107) Carbon Dioxide Level 30 mmol/L (21-32) Anion Gap 7 (6-14) Blood Urea Nitrogen 52 mg/dL (7-20) Creatinine 3.0 mg/dL (0.6-1.0) Estimated GFR (Cockcroft-Gault) 15.4 Glucose Level 160 mg/dL (70-99) Calcium Level 7.7 mg/dL (8.5-10.1) Micro Microbiology 01/16/19 Blood Culture - Preliminary, Resulted NO GROWTH AFTER 1 DAY Objective Assessment Fever Respiratory failure Circulatory failure CHF/Cardiomyopathy DM A fib Stage 3 , sacral ulcer Plan Plan of Care cont zosyn and zyvox check cultures supportive care CT noted d/w MICHELINE NETTLES MD January 18, 2019 08:29
[2019-01-18] MEDS: ALBUTEROL SULFATE 2.5 MG/3 ML NEBU. NEB SCH ×2 (08:48→19:54)
[2019-01-18 09:12] LABS: BASE EXCESS ABG 3 mmol/L (-3-3); HCO3 ABG 27 mmol/L (21-28); PCO2 ABG 42 mmHg (35-46); PO2 ABG 133 mmHg (65-108); SAT O2 ABG 99 % (92-99)
--- NOTE | 2019-01-18 09:40 | NUR ---
SS following up with discharge planning. Pt is from [facility], ; fax [phone]. [facility] contacted SS and requested updates. SS received update from pt's RN. SS phoned and faxed clinical updates to [facility].
[2019-01-18 10:30] LABS: FIO2 ABG 40
--- NOTE | 2019-01-18 12:07 | PDOC ---
SUBJECTIVE ROS Intubated,awake OBJECTIVE Vital Signs Vital Signs Date Time Temp Pulse Resp B/P (MAP) Pulse Ox O2 Delivery O2 Flow Rate FiO2 01/18/19 11:51 100 Ventilator 01/18/19 11:00 85 21 125/59 (81) 01/18/19 08:00 99.4 99.4 I & 0 Intake and Output 01/18/19 07:00 Intake Total 3537 ml Output Total 1585 ml Balance 1952 ml IV Total 1168 ml Tube Feeding 1839 ml Blood Product IV Normal Saline Flush 530 ml Output Urine Total 1345 ml Gastric Drainage Total 240 ml # Bowel Movements 1 PHYSICAL EXAM Physical Exam GEN: Intubated HEEN: Intubated , off sedation NECK: Supple CVS: RRR RESP: CTA ant GI: Soft , NT : Kahn + Ext- No LE edema NEuro- Intubated Skin No rash DIAGNOSIS/ASSESSMENT Assessment & Plan NICKIE - Etiology- Cardio -Renal, Post cardiac arrest Baseline Cr at [facility] 0.9 went up to 1.7-1.9 on 01/15 Off diuretics, Hypotensive, responded to IV boluses , On pressor - BP dropped to 60's with decrease in dose of Levophed Creatinine went up today to 3 E-Lytes and acid base stable, Currently no emergent indication for HD Strict I/O, daily weights , Anticipate fluctuations in renal function 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 Intralobular septal thickening and patchy groundglass opacities are seen consistent with edema. cardiology following Elevated LFT's DM- as per primary A fib - On Amiodarone As per cardiology Sacral ulcer Anemia- Hgb stable Bilateral Pl effusion - Large left pleural effusion, moderate right pleural effusion with underlying atelectasis. Underlying infiltrates are not excluded Possibly Thoracentesis , Pulm following Continue supportive care Has significant CMP and her Functional status is poor Discussed with Daughter at bedside and RN COMMENT/RELEVANT DATA Meds Current Medications Medications (Trade) Dose Ordered Sig/Destiny Start Time Stop Time Status Last Admin Dose Admin Acetaminophen (Tylenol) 650 mg PRN Q4HRS PRN 01/16/19 08:15 01/16/19 08:09 650 MG Albuterol Sulfate (Ventolin Neb Soln) 2.5 mg RTBID 01/15/19 20:00 01/18/19 08:48 2.5 MG Amiodarone HCl (Cordarone) 200 mg DAILY 01/16/19 09:00 01/18/19 07:53 200 MG Ascorbic Acid (Vitamin C) 500 mg DAILY 01/16/19 09:00 01/18/19 07:52 500 MG Aspirin (Dieudonne Aspirin) 325 mg DAILY 01/16/19 09:00 01/18/19 07:52 325 MG Atorvastatin Calcium (Lipitor) 10 mg HS 01/15/19 21:00 01/17/19 21:08 10 MG Calcium Gluconate (Calcium Gluconate) 1,000 mg 1X ONCE 01/15/19 15:30 01/15/19 15:31 DC 01/15/19 15:58 1,000 MG Carvedilol (Coreg) 3.125 mg BIDWMEALS 01/15/19 18:30 Dextrose (Dextrose 50%-Water Syringe) 12.5 gm PRN Q15MIN PRN 01/15/19 17:45 Docusate Sodium (Colace) 100 mg PRN DAILY PRN 01/15/19 17:15 Famotidine (Pepcid) 20 mg QHS 01/16/19 21:00 01/17/19 21:08 20 MG Fentanyl Citrate (Fentanyl 2ml Vial) 50 mcg PRN Q2HR PRN 01/15/19 17:15 01/17/19 19:37 50 MCG Furosemide (Lasix) 40 mg [id number] 01/16/19 09:00 01/16/19 10:50 DC Heparin Sodium (Porcine) (Heparin Sodium) 5,000 unit Q12HR 01/16/19 21:00 01/17/19 21:09 5,000 UNIT Insulin Human Lispro (HumaLOG) 0-5 UNITS Q6HRS 01/16/19 00:00 01/18/19 11:52 2 UNITS Linezolid/Dextrose 300 ml @ 300 mls/hr Q12HR 01/16/19 09:00 01/18/19 07:54 300 MLS/HR Magnesium Hydroxide (Milk Of Magnesia) 2,400 mg PRN DAILY PRN 01/15/19 18:45 Midazolam HCl 100 ml @ 5 mls/hr CONT PRN 01/15/19 17:15 4/30/19 23:52 5 MLS/HR Midazolam HCl (Versed) 5 mg 1X ONCE 01/15/19 15:00 01/15/19 15:01 DC 01/15/19 15:59 5 MG Mirtazapine (Remeron) 7.5 mg QHS 01/16/19 21:00 01/17/19 21:08 7.5 MG Norepinephrine Bitartrate 250 ml @ 1.875 mls/ hr CONT PRN 01/15/19 17:00 01/17/19 23:53 15 MLS/HR Ondansetron HCl (Zofran Odt) 4 mg PRN Q6HRS PRN 01/15/19 18:45 Pantoprazole Sodium (PROTONIX VIAL for IV PUSH) 40 mg DAILYAC 01/19/19 07:30 Pantoprazole Sodium (Protonix) 40 mg DAILYAC 01/16/19 07:30 01/18/19 08:02 DC 01/18/19 07:52 40 MG Piperacillin Sod/ Tazobactam Sod (Zosyn Per Pharmacy) 1 each PRN DAILY PRN 01/15/19 17:45 UNV Piperacillin Sod/ Tazobactam Sod 2.25 gm/Sodium Chloride 50 ml @ 100 mls/hr Q6HRS 01/15/19 18:00 01/18/19 11:41 100 MLS/HR Propofol 50 ml @ As Directed STK-MED ONCE 01/15/19 15:02 01/15/19 15:03 DC Propofol (Diprivan) 200 mg 1X ONCE 01/15/19 15:00 01/15/19 15:06 DC Quetiapine Fumarate (SEROquel) 25 mg QHS 01/15/19 21:00 01/17/19 21:08 25 MG Sodium Chloride 500 ml @ 250 mls/hr Q1HR PRN 01/17/19 19:15 Thiamine Mononitrate (Vitamin B-1) 100 mg DAILY 01/16/19 09:00 01/18/19 07:53 100 MG Tramadol HCl (Ultram) 25 mg PRN Q6HRS PRN 01/15/19 17:15 Vancomycin HCl (Vanco Per Pharmacy) 1 each PRN DAILY PRN 01/15/19 17:45 01/16/19 08:06 DC 01/15/19 21:10 1 EACH Vancomycin HCl (Vancomycin Trough Level) 1 each 1X ONCE 01/17/19 20:30 01/17/19 20:31 Cancel Vancomycin HCl 1.25 gm/Sodium Chloride 250 ml @ 167 mls/hr Q24H 01/16/19 21:00 01/16/19 21:00 DC Vancomycin HCl 2 gm/Sodium Chloride 500 ml @ 250 mls/hr 1X ONCE 01/15/19 20:00 01/15/19 21:59 DC 01/15/19 20:56 250 MLS/HR Lab Laboratory Tests Test 01/17/19 12:53 01/17/19 15:05 01/17/19 18:08 01/17/19 23:59 Glucose (Fingerstick) 165 mg/dL (70-99) 170 mg/dL (70-99) 193 mg/dL (70-99) O2 Saturation 97 % (92-99) Arterial Blood pH 7.40 (7.35-7.45) Arterial Blood pCO2 at Patient Temp 49 mmHg (35-46) Arterial Blood pO2 at Patient Temp 111 mmHg (65-108) Arterial Blood HCO3 30 mmol/L (21-28) Arterial Blood Base Excess 4 mmol/L (-3-3) FiO2 40 Test 01/18/19 05:44 01/18/19 06:30 01/18/19 08:40 Glucose (Fingerstick) 149 mg/dL (70-99) White Blood Count 8.6 x10^3/uL (4.0-11.0) Red Blood Count 2.49 x10^6/uL (3.50-5.40) Hemoglobin 7.3 g/dL (12.0-15.5) Hematocrit 23.2 % (36.0-47.0) Mean Corpuscular Volume 93 fL (79-100) Mean Corpuscular Hemoglobin 30 pg (25-35) Mean Corpuscular Hemoglobin Concent 32 g/dL (31-37) Red Cell Distribution Width 20.4 % (11.5-14.5) Platelet Count 199 x10^3/uL (140-400) Neutrophils (%) (Auto) 73 % (31-73) Lymphocytes (%) (Auto) 12 % (24-48) Monocytes (%) (Auto) 11 % (0-9) Eosinophils (%) (Auto) 3 % (0-3) Basophils (%) (Auto) 1 % (0-3) Neutrophils # (Auto) 6.3 x10^3uL (1.8-7.7) Lymphocytes # (Auto) 1.1 x10^3/uL (1.0-4.8) Monocytes # (Auto) 0.9 x10^3/uL (0.0-1.1) Eosinophils # (Auto) 0.3 x10^3/uL (0.0-0.7) Basophils # (Auto) 0.1 x10^3/uL (0.0-0.2) Sodium Level 142 mmol/L (136-145) Potassium Level 3.6 mmol/L (3.5-5.1) Chloride Level 105 mmol/L (98-107) Carbon Dioxide Level 30 mmol/L (21-32) Anion Gap 7 (6-14) Blood Urea Nitrogen 52 mg/dL (7-20) Creatinine 3.0 mg/dL (0.6-1.0) Estimated GFR (Cockcroft-Gault) 15.4 Glucose Level 160 mg/dL (70-99) Calcium Level 7.7 mg/dL (8.5-10.1) O2 Saturation 99 % (92-99) Arterial Blood pH 7.43 (7.35-7.45) Arterial Blood pCO2 at Patient Temp 42 mmHg (35-46) Arterial Blood pO2 at Patient Temp 133 mmHg (65-108) Arterial Blood HCO3 27 mmol/L (21-28) Arterial Blood Base Excess 3 mmol/L (-3-3) FiO2 40 Results All relevant outside records, renal labs, imaging studies, telemetry/EKG's were reviewed. Other Cxr- 1. Stable tube positions. 2. Unchanged pulmonary infiltrates and pleural effusions compatible with congestive heart failure. ESTEBAN GANDARA MD January 18, 2019 12:07
--- NOTE | 2019-01-18 12:28 | PDOC ---
CARDIO Progress Notes Date and Time Date of Service 01/18/19 Time of Evaluation 1145 Subjective Subjective: Other (intubated) Vitals Vitals Vital Signs Date Time Temp Pulse Resp B/P (MAP) Pulse Ox O2 Delivery O2 Flow Rate FiO2 01/18/19 11:51 100 Ventilator 01/18/19 11:00 85 21 125/59 (81) 01/18/19 08:00 99.4 99.4 Weight Weight [ ] Input and Output Intake and Output Intake and Output 01/18/19 07:00 Intake Total 3537 ml Output Total 1585 ml Balance 1952 ml IV Total 1168 ml Tube Feeding 1839 ml Blood Product IV Normal Saline Flush 530 ml Output Urine Total 1345 ml Gastric Drainage Total 240 ml # Bowel Movements 1 Laboratory Labs Laboratory Tests Test 01/17/19 12:53 01/17/19 15:05 01/17/19 18:08 01/17/19 23:59 Glucose (Fingerstick) 165 mg/dL (70-99) 170 mg/dL (70-99) 193 mg/dL (70-99) O2 Saturation 97 % (92-99) Arterial Blood pH 7.40 (7.35-7.45) Arterial Blood pCO2 at Patient Temp 49 mmHg (35-46) Arterial Blood pO2 at Patient Temp 111 mmHg (65-108) Arterial Blood HCO3 30 mmol/L (21-28) Arterial Blood Base Excess 4 mmol/L (-3-3) FiO2 40 Test 01/18/19 05:44 01/18/19 06:30 01/18/19 08:40 Glucose (Fingerstick) 149 mg/dL (70-99) White Blood Count 8.6 x10^3/uL (4.0-11.0) Red Blood Count 2.49 x10^6/uL (3.50-5.40) Hemoglobin 7.3 g/dL (12.0-15.5) Hematocrit 23.2 % (36.0-47.0) Mean Corpuscular Volume 93 fL (79-100) Mean Corpuscular Hemoglobin 30 pg (25-35) Mean Corpuscular Hemoglobin Concent 32 g/dL (31-37) Red Cell Distribution Width 20.4 % (11.5-14.5) Platelet Count 199 x10^3/uL (140-400) Neutrophils (%) (Auto) 73 % (31-73) Lymphocytes (%) (Auto) 12 % (24-48) Monocytes (%) (Auto) 11 % (0-9) Eosinophils (%) (Auto) 3 % (0-3) Basophils (%) (Auto) 1 % (0-3) Neutrophils # (Auto) 6.3 x10^3uL (1.8-7.7) Lymphocytes # (Auto) 1.1 x10^3/uL (1.0-4.8) Monocytes # (Auto) 0.9 x10^3/uL (0.0-1.1) Eosinophils # (Auto) 0.3 x10^3/uL (0.0-0.7) Basophils # (Auto) 0.1 x10^3/uL (0.0-0.2) Sodium Level 142 mmol/L (136-145) Potassium Level 3.6 mmol/L (3.5-5.1) Chloride Level 105 mmol/L (98-107) Carbon Dioxide Level 30 mmol/L (21-32) Anion Gap 7 (6-14) Blood Urea Nitrogen 52 mg/dL (7-20) Creatinine 3.0 mg/dL (0.6-1.0) Estimated GFR (Cockcroft-Gault) 15.4 Glucose Level 160 mg/dL (70-99) Calcium Level 7.7 mg/dL (8.5-10.1) O2 Saturation 99 % (92-99) Arterial Blood pH 7.43 (7.35-7.45) Arterial Blood pCO2 at Patient Temp 42 mmHg (35-46) Arterial Blood pO2 at Patient Temp 133 mmHg (65-108) Arterial Blood HCO3 27 mmol/L (21-28) Arterial Blood Base Excess 3 mmol/L (-3-3) FiO2 40 Microbiology Micro Microbiology 01/16/19 Blood Culture - Preliminary, Resulted NO GROWTH AFTER 1 DAY Physical Exam HEENT: Neck Supple W Full Motion Chest: Symmetric LUNGS: Other (intubated/mechanical vent) Heart: RRR (SR LBBB) Abdomen: Soft N/T Extremities: No Edema Neurology: other (sedated) Assessment Assessment 1. S/p cardiopulmonary arrest at [facility] 01/14/19. unclear rhythm, suspect hypoxia induced. Current EF better at 40% 2. Acute and chronic respiratory failure: s/p intubation. multifactorial PNA, CHF, CT chest with large pleural effusion. ? need for thoracentesis 3. Acute on chronic systolic heart failure 4. NICM; LVEF 15-20% now at 40% 5. NICKIE on CKD3; Cr ^ 3.0. Renal following 6. Anemia; hgb 7.3 with hx of PUD 7. Leukocytosis/fever/ ? sepsis: ID following 8. Hypotension; pressor support 8. DM2/HLP 9. s/p lead-less PPM ([employer]). Device check with normal function. No significant ectopy 10. PAFIB; maintaining SR LBBB. Previously on Pradaxa, but discontinued due to GI bleed 11. Protein-calorie malnutrition Recommendations Continue pressor support as warranted Amiodarone, ASA. Resume BP meds when off levophed. ASA for stroke prevention as patient is poor candidate for OAC given h/o GI bleeding Hold ACEi with NICKIE Lung optimization as per AIME Cotto APRN January 18, 2019 12:28
[2019-01-18] MEDS: fentaNYL PF VIAL 100 MCG/2 ML VIAL IV PRN ×3 (13:17→20:54)
[2019-01-18] MEDS: HEPARIN for SUB-Q USE 5,000 UNIT/ML VIAL. SQ SCH (13:18)
--- NOTE | 2019-01-18 14:40 | PDOC ---
PROGRESS NOTES Subjective Subjective discussed with her nurse and patients daughter at bedside. still on ventilator and pressors and NG tube feeding. lab reviewed. creatinine higher 3.0. ct chest and cxr reviewed. Objective Objective Vital Signs Date Time Temp Pulse Resp B/P (MAP) Pulse Ox O2 Delivery O2 Flow Rate FiO2 01/18/19 14:00 82 16 91/49 (63) Ventilator 01/18/19 13:36 100 01/18/19 13:34 98.9 98.9 Intake and Output 01/18/19 06:59 Intake Total 3537 ml Output Total 1525 ml Balance 2012 ml IV Total 1168 ml Tube Feeding 1839 ml Blood Product IV Normal Saline Flush 530 ml Output Urine Total 1285 ml Gastric Drainage Total 240 ml # Bowel Movements 1 Physical Exam Abdomen: Soft Heart: Regular rate, Normal S1, Normal S2 Extremities: Other (1 plus edema legs) General: Other (sedated) HEENT: Atraumatic Lungs: Other (decreased breath sounds anteriorly. intubated) Neuro: Other (sedated) Psych/Mental Status: Other (sedated) Skin: No rashes Assessment Assessment Problems1. Cardiopulmonary arrest. 2. Aspiration pneumonia suspected 3. Fever.resolved 4. Leukocytosis.resolved 5. Acute kidney injury most likely secondary to the cardiopulmonary arrest. 6. Hypotension with decreased perfusion of the kidney. on levophed 7. Elevated liver function tests improved 8. Nonischemic cardiomyopathy with improvement of left ventricular ejection fraction 15-20% improved to 40%. 9. Acute on chronic hypoxic and hypercapnic respiratory failure, on the ventilator. 10. Nonischemic cardiomyopathy. 11. Acute on chronic systolic congestive heart failure. 12. Paroxysmal atrial fibrillation, but not a candidate for Pradaxa due to recent gastrointestinal bleed in 06/2018 from gastric ulcer. 13. Oropharyngeal dysphagia. NG tube feeding 14. Diabetes mellitus type 2. 15. Mild coronary artery disease. Medical Problems: (1) Cardiac arrest Status: Acute (2) HCAP (healthcare-associated pneumonia) Status: Acute (3) Liver failure Status: Acute Plan Plan of Care wean off levophed ventilator support continue zyvox and zosyn continue tube feeding monitor renal function continue heparin for dvt prophylaxis hold iv lasix due to hypotension d/c low dose carvedilol due to hypotension lab tomorrow Comment Review of Relevant I have reviewed the following items kristen (where applicable) has been applied. Labs Laboratory Tests Test 01/16/19 17:40 01/16/19 22:16 01/16/19 23:55 01/17/19 05:45 Glucose (Fingerstick) 133 mg/dL (70-99) 173 mg/dL (70-99) 128 mg/dL (70-99) Urine Collection Type Unknown Urine Color Yellow Urine Clarity Clear Urine pH 5.0 Urine Specific [place] 1.015 Urine Protein 30 mg/dL (NEG-TRACE) Urine Glucose (UA) Negative mg/dL (NEG) Urine Ketones (Stick) Negative mg/dL (NEG) Urine Blood Negative (NEG) Urine Nitrite Negative (NEG) Urine Bilirubin Negative (NEG) Urine Urobilinogen Dipstick 1.0 mg/dL (0.2 mg/dL) Urine Leukocyte Esterase Moderate (NEG) Urine RBC Occ /HPF (0-2) Urine WBC 11-20 /HPF (0-4) Urine Bacteria Few /HPF (0-FEW) Urine Yeast Present /HPF White Blood Count 10.0 x10^3/uL (4.0-11.0) Red Blood Count 2.48 x10^6/uL (3.50-5.40) Hemoglobin 7.3 g/dL (12.0-15.5) Hematocrit 23.0 % (36.0-47.0) Mean Corpuscular Volume 93 fL (79-100) Mean Corpuscular Hemoglobin 30 pg (25-35) Mean Corpuscular Hemoglobin Concent 32 g/dL (31-37) Red Cell Distribution Width 20.5 % (11.5-14.5) Platelet Count 226 x10^3/uL (140-400) Neutrophils (%) (Auto) 72 % (31-73) Lymphocytes (%) (Auto) 14 % (24-48) Monocytes (%) (Auto) 11 % (0-9) Eosinophils (%) (Auto) 2 % (0-3) Basophils (%) (Auto) 1 % (0-3) Neutrophils # (Auto) 7.2 x10^3uL (1.8-7.7) Lymphocytes # (Auto) 1.4 x10^3/uL (1.0-4.8) Monocytes # (Auto) 1.1 x10^3/uL (0.0-1.1) Eosinophils # (Auto) 0.2 x10^3/uL (0.0-0.7) Basophils # (Auto) 0.1 x10^3/uL (0.0-0.2) Prothrombin Time 16.1 SEC (11.7-14.0) Prothromb Time International Ratio 1.3 (0.8-1.1) Sodium Level 142 mmol/L (136-145) Potassium Level 4.0 mmol/L (3.5-5.1) Chloride Level 105 mmol/L (98-107) Carbon Dioxide Level 31 mmol/L (21-32) Anion Gap 6 (6-14) Blood Urea Nitrogen 65 mg/dL (7-20) Creatinine 1.9 mg/dL (0.6-1.0) Estimated GFR (Cockcroft-Gault) 26.1 BUN/Creatinine Ratio 34 (6-20) Glucose Level 131 mg/dL (70-99) Calcium Level 7.7 mg/dL (8.5-10.1) Total Bilirubin 0.7 mg/dL (0.2-1.0) Aspartate Amino Transf (AST/SGOT) 52 U/L (15-37) Alanine Aminotransferase (ALT/SGPT) 71 U/L (14-59) Alkaline Phosphatase 200 U/L (46-116) Total Protein 4.7 g/dL (6.4-8.2) Albumin 1.3 g/dL (3.4-5.0) Albumin/Globulin Ratio 0.4 (1.0-1.7) Test 01/17/19 08:00 01/17/19 12:53 01/17/19 15:05 01/17/19 18:08 O2 Saturation 97 % (92-99) 97 % (92-99) Arterial Blood pH 7.46 (7.35-7.45) 7.40 (7.35-7.45) Arterial Blood pCO2 at Patient Temp 42 mmHg (35-46) 49 mmHg (35-46) Arterial Blood pO2 at Patient Temp 97 mmHg (65-108) 111 mmHg (65-108) Arterial Blood HCO3 30 mmol/L (21-28) 30 mmol/L (21-28) Arterial Blood Base Excess 5 mmol/L (-3-3) 4 mmol/L (-3-3) FiO2 40 40 Glucose (Fingerstick) 165 mg/dL (70-99) 170 mg/dL (70-99) Test 01/17/19 23:59 01/18/19 05:44 01/18/19 06:30 01/18/19 08:40 Glucose (Fingerstick) 193 mg/dL (70-99) 149 mg/dL (70-99) White Blood Count 8.6 x10^3/uL (4.0-11.0) Red Blood Count 2.49 x10^6/uL (3.50-5.40) Hemoglobin 7.3 g/dL (12.0-15.5) Hematocrit 23.2 % (36.0-47.0) Mean Corpuscular Volume 93 fL (79-100) Mean Corpuscular Hemoglobin 30 pg (25-35) Mean Corpuscular Hemoglobin Concent 32 g/dL (31-37) Red Cell Distribution Width 20.4 % (11.5-14.5) Platelet Count 199 x10^3/uL (140-400) Neutrophils (%) (Auto) 73 % (31-73) Lymphocytes (%) (Auto) 12 % (24-48) Monocytes (%) (Auto) 11 % (0-9) Eosinophils (%) (Auto) 3 % (0-3) Basophils (%) (Auto) 1 % (0-3) Neutrophils # (Auto) 6.3 x10^3uL (1.8-7.7) Lymphocytes # (Auto) 1.1 x10^3/uL (1.0-4.8) Monocytes # (Auto) 0.9 x10^3/uL (0.0-1.1) Eosinophils # (Auto) 0.3 x10^3/uL (0.0-0.7) Basophils # (Auto) 0.1 x10^3/uL (0.0-0.2) Sodium Level 142 mmol/L (136-145) Potassium Level 3.6 mmol/L (3.5-5.1) Chloride Level 105 mmol/L (98-107) Carbon Dioxide Level 30 mmol/L (21-32) Anion Gap 7 (6-14) Blood Urea Nitrogen 52 mg/dL (7-20) Creatinine 3.0 mg/dL (0.6-1.0) Estimated GFR (Cockcroft-Gault) 15.4 Glucose Level 160 mg/dL (70-99) Calcium Level 7.7 mg/dL (8.5-10.1) O2 Saturation 99 % (92-99) Arterial Blood pH 7.43 (7.35-7.45) Arterial Blood pCO2 at Patient Temp 42 mmHg (35-46) Arterial Blood pO2 at Patient Temp 133 mmHg (65-108) Arterial Blood HCO3 27 mmol/L (21-28) Arterial Blood Base Excess 3 mmol/L (-3-3) FiO2 40 Test 01/18/19 11:49 Glucose (Fingerstick) 183 mg/dL (70-99) Laboratory Tests Test 01/17/19 15:05 01/17/19 18:08 01/17/19 23:59 01/18/19 05:44 O2 Saturation 97 % (92-99) Arterial Blood pH 7.40 (7.35-7.45) Arterial Blood pCO2 at Patient Temp 49 mmHg (35-46) Arterial Blood pO2 at Patient Temp 111 mmHg (65-108) Arterial Blood HCO3 30 mmol/L (21-28) Arterial Blood Base Excess 4 mmol/L (-3-3) FiO2 40 Glucose (Fingerstick) 170 mg/dL (70-99) 193 mg/dL (70-99) 149 mg/dL (70-99) Test 01/18/19 06:30 01/18/19 08:40 01/18/19 11:49 White Blood Count 8.6 x10^3/uL (4.0-11.0) Red Blood Count 2.49 x10^6/uL (3.50-5.40) Hemoglobin 7.3 g/dL (12.0-15.5) Hematocrit 23.2 % (36.0-47.0) Mean Corpuscular Volume 93 fL (79-100) Mean Corpuscular Hemoglobin 30 pg (25-35) Mean Corpuscular Hemoglobin Concent 32 g/dL (31-37) Red Cell Distribution Width 20.4 % (11.5-14.5) Platelet Count 199 x10^3/uL (140-400) Neutrophils (%) (Auto) 73 % (31-73) Lymphocytes (%) (Auto) 12 % (24-48) Monocytes (%) (Auto) 11 % (0-9) Eosinophils (%) (Auto) 3 % (0-3) Basophils (%) (Auto) 1 % (0-3) Neutrophils # (Auto) 6.3 x10^3uL (1.8-7.7) Lymphocytes # (Auto) 1.1 x10^3/uL (1.0-4.8) Monocytes # (Auto) 0.9 x10^3/uL (0.0-1.1) Eosinophils # (Auto) 0.3 x10^3/uL (0.0-0.7) Basophils # (Auto) 0.1 x10^3/uL (0.0-0.2) Sodium Level 142 mmol/L (136-145) Potassium Level 3.6 mmol/L (3.5-5.1) Chloride Level 105 mmol/L (98-107) Carbon Dioxide Level 30 mmol/L (21-32) Anion Gap 7 (6-14) Blood Urea Nitrogen 52 mg/dL (7-20) Creatinine 3.0 mg/dL (0.6-1.0) Estimated GFR (Cockcroft-Gault) 15.4 Glucose Level 160 mg/dL (70-99) Calcium Level 7.7 mg/dL (8.5-10.1) O2 Saturation 99 % (92-99) Arterial Blood pH 7.43 (7.35-7.45) Arterial Blood pCO2 at Patient Temp 42 mmHg (35-46) Arterial Blood pO2 at Patient Temp 133 mmHg (65-108) Arterial Blood HCO3 27 mmol/L (21-28) Arterial Blood Base Excess 3 mmol/L (-3-3) FiO2 40 Glucose (Fingerstick) 183 mg/dL (70-99) Microbiology 01/16/19 Blood Culture - Preliminary, Resulted NO GROWTH AFTER 1 DAY Medications Current Medications Propofol (Diprivan) 200 mg 1X ONCE IV ; Start 01/15/19 at 15:00; Stop 01/15/19 at 15:06; Status DC Midazolam HCl (Versed) 5 mg 1X ONCE IV Last administered on 01/15/19at 15:59; Start 01/15/19 at 15:00; Stop 01/15/19 at 15:01; Status DC Propofol 50 ml @ As Directed STK-MED ONCE IV ; Start 01/15/19 at 15:02; Stop 01/15/19 at 15:03; Status DC Midazolam HCl 100 ml @ 0 mls/hr 1X ONCE IV Last administered on 01/15/19at 15:19; Start 01/15/19 at 15:15; Stop 01/15/19 at 15:16; Status DC Calcium Gluconate (Calcium Gluconate) 1,000 mg 1X ONCE IVP Last administered on 01/15/19at 15:58; Start 01/15/19 at 15:30; Stop 01/15/19 at 15:31; Status DC Norepinephrine Bitartrate 250 ml @ 1.875 mls/ hr CONT PRN IV SEE I/O RECORD Last administered on 01/17/19at 23:53; Start 01/15/19 at 17:00 Piperacillin Sod/ Tazobactam Sod (Zosyn Per Pharmacy) 1 each PRN DAILY PRN MC SEE COMMENTS; Start 01/15/19 at 17:15 Albuterol Sulfate (Ventolin Neb Soln) 2.5 mg PRN Q4HRS PRN NEB SHORTNESS OF BREATH; Start 01/15/19 at 17:15 Midazolam HCl 100 ml @ 5 mls/hr CONT PRN IV SEE I/O RECORD Last administered on 01/17/19at 23:52; Start 01/15/19 at 17:15 Fentanyl Citrate (Fentanyl 2ml Vial) 50 mcg PRN Q2HR PRN IV PAIN Last administered on 01/18/19 13:17; Start 01/15/19 at 17:15 Piperacillin Sod/ Tazobactam Sod 2.25 gm/Sodium Chloride 50 ml @ 100 mls/hr Q6HRS IV Last administered on 01/18/19 11:41; Start 01/15/19 at 18:00 Albuterol Sulfate (Ventolin Neb Soln) 2.5 mg RTBID NEB Last administered on 01/18/19 08:48; Start 01/15/19 at 20:00 Amiodarone HCl (Cordarone) 200 mg DAILY PO Last administered on 01/18/19 07:53; Start 01/16/19 at 09:00 Aspirin (Dieudonne Aspirin) 325 mg DAILY PO Last administered on 01/18/19 07:52; Start 01/16/19 at 09:00 Atorvastatin Calcium (Lipitor) 10 mg HS PO Last administered on 01/17/19at 21:08; Start 01/15/19 at 21:00 Carvedilol (Coreg) 3.125 mg BIDWMEALS PO ; Start 01/15/19 at 18:30 Docusate Sodium (Colace) 100 mg PRN DAILY PRN PO hard stools; Start 01/15/19 at 17:15 Furosemide (Lasix) 40 mg BID94 PO ; Start 01/16/19 at 09:00; Stop 01/16/19 at 10:50; Status DC Mirtazapine (Remeron) 7.5 mg DAILY PO ; Start 01/16/19 at 09:00; Stop 01/16/19 at 09:00; Status DC Tramadol HCl (Ultram) 25 mg PRN Q6HRS PRN PO MILD TO MODERATE PAIN; Start 01/15/19 at 17:15 Acetaminophen (Tylenol) 650 mg PRN Q4HRS PRN PO FEVER Last administered on 01/15/19at 20:57; Start 01/15/19 at 17:15; Stop 01/16/19 at 08:07; Status DC Ascorbic Acid (Vitamin C) 500 mg DAILY PO Last administered on 01/18/19at 07:52; Start 01/16/19 at 09:00 Magnesium Hydroxide (Milk Of Magnesia) 2,400 mg PRN DAILY PRN PO CONSTIPATION; Start 01/15/19 at 18:45 Ondansetron HCl (Zofran Odt) 4 mg PRN Q6HRS PRN PO NAUSEA/VOMITING; Start 01/15/19 at 18:45 Pantoprazole Sodium (Protonix) 40 mg DAILYAC PO Last administered on 01/18/19at 07:52; Start 01/16/19 at 07:30; Stop 01/18/19 at 08:02; Status DC Quetiapine Fumarate (SEROquel) 12.5 mg PRN Q6HRS PRN PO AGITATION; Start 01/15/19 at 17:15 Quetiapine Fumarate (SEROquel) 25 mg QHS PO Last administered on 01/17/19at 21:08; Start 01/15/19 at 21:00 Thiamine Mononitrate (Vitamin B-1) 100 mg DAILY PO Last administered on 01/18/19at 07:53; Start 01/16/19 at 09:00 Vancomycin HCl (Vanco Per Pharmacy) 1 each PRN DAILY PRN MC SEE COMMENTS Last administered on 01/15/19at 21:10; Start 01/15/19 at 17:45; Stop 01/16/19 at 08:06; Status DC Piperacillin Sod/ Tazobactam Sod (Zosyn Per Pharmacy) 1 each PRN DAILY PRN MC SEE COMMENTS; Start 01/15/19 at 17:45; Status UNV Insulin Human Lispro (HumaLOG) 0-5 UNITS TIDWMEALS SQ ; Start 01/16/19 at 08:00; Stop 01/16/19 at 08:00; Status DC Dextrose (Dextrose 50%-Water Syringe) 12.5 gm PRN Q15MIN PRN IV SEE COMMENTS; Start 01/15/19 at 17:45 Vancomycin HCl 2 gm/Sodium Chloride 500 ml @ 250 mls/hr 1X ONCE IV Last administered on 01/15/19at 20:56; Start 01/15/19 at 20:00; Stop 01/15/19 at 21:59; Status DC Insulin Human Lispro (HumaLOG) 0-5 UNITS Q6HRS SQ Last administered on 01/18/19at 11:52; Start 01/16/19 at 00:00 Vancomycin HCl 1.25 gm/Sodium Chloride 250 ml @ 167 mls/hr Q24H IV ; Start 01/16/19 at 21:00; Stop 01/16/19 at 21:00; Status DC Vancomycin HCl (Vancomycin Trough Level) 1 each 1X ONCE MC ; Start 01/17/19 at 20:30; Stop 01/17/19 at 20:31; Status Cancel Mirtazapine (Remeron) 7.5 mg QHS PO Last administered on 01/17/19at 21:08; Start 01/16/19 at 21:00 Linezolid/Dextrose 300 ml @ 300 mls/hr Q12HR IV Last administered on 01/18/19at 07:54; Start 01/16/19 at 09:00 Acetaminophen (Tylenol) 650 mg PRN Q4HRS PRN PEG MILD PAIN / TEMP Last a dministered on 01/16/19at 08:09; Start 01/16/19 at 08:15 Famotidine (Pepcid) 20 mg QHS PO Last administered on 01/17/19at 21:08; Start 01/16/19 at 21:00; Stop 01/18/19 at 13:06; Status DC Heparin Sodium (Porcine) (Heparin Sodium) 5,000 unit Q12HR SQ Last administered on 01/18/19at 13:18; Start 01/16/19 at 21:00 Sodium Chloride 500 ml @ 250 mls/hr Q1HR PRN IV HYPOTENTION; Start 01/17/19 at 19:15 Pantoprazole Sodium (PROTONIX VIAL for IV PUSH) 40 mg DAILYAC IVP ; Start 01/19/19 at 07:30 Active Scripts Active Reported Vitamin C (Ascorbate Calcium) 500 Mg Tablet 500 Mg PO DAILY Aspirin 325 Mg Tablet 1 Tab PO DAILY Coreg (Carvedilol) 3.125 Mg Tablet 3.125 Mg PO BIDWMEALS Zofran (Ondansetron Hcl) 4 Mg Tablet 4 Mg PO PRN Q6HRS PRN B-1 (Thiamine HCl) 100 Mg Tablet 100 Mg PO DAILY Docusate Sodium 100 Mg Capsule 100 Mg PO PRN PRN Acetaminophen 160 Mg/5 Ml Oral.susp 650 Mg PO PRN Q4HRS PRN Milk Of Magnesia (Magnesium Hydroxide) 2,400 Mg/10 Ml Oral.susp 2,400 Mg PO PRN PRN Mirtazapine 7.5 Mg Tablet 7.5 Mg PO QHS Albuterol Sulfate Neb Soln (Albuterol Sulfate) 2.5 Mg/3 Ml Vial.neb 2.5 Mg NEB BID Atorvastatin Calcium 10 Mg Tablet 10 Mg PO HS Lasix (Furosemide) 40 Mg Tablet 40 Mg PO BID Protonix (Pantoprazole Sodium) 20 Mg Tablet.dr 40 Mg PO DAILY Amiodarone Hcl 200 Mg Tablet 1 Tab PO DAILY Seroquel (Quetiapine Fumarate) 25 Mg Tablet 25 Mg PO HS Tramadol Hcl 50 Mg Tablet 25 Mg PO Q6HRS PRN Seroquel (Quetiapine Fumarate) 25 Mg Tablet 12.5 Mg PO PRN Q6HRS PRN Vitals/I & O Vital Sign - Last 24 Hours 01/17/19 01/17/19 01/17/19 01/17/19 15:00 16:00 16:00 17:00 Temp 99.0 99.0 Pulse 98 98 98 Resp 25 16 19 B/P (MAP) 104/51 (68) 105/56 (72) 110/58 (75) Pulse Ox 99 99 99 O2 Delivery c-pap trial Mechanical Ventilator Ventilator Ventilator 01/17/19 01/17/19 01/17/19 01/17/19 17:05 18:00 19:00 19:37 Pulse 95 88 Resp 19 20 B/P (MAP) 114/60 (78) 110/51 (70) Pulse Ox 99 99 99 98 O2 Delivery Ventilator Ventilator Ventilator Ventilator 01/17/19 01/17/19 01/17/19 01/17/19 19:37 20:00 20:00 20:59 Temp 99.7 99.7 Pulse 88 Resp 20 16 B/P (MAP) 116/59 (78) Pulse Ox 99 99 98 O2 Delivery BiPAP/CPAP Mechanical Ventilator Ventilator Ventilator 01/17/19 01/17/19 01/17/19 01/17/19 21:00 22:00 23:00 23:00 Pulse 93 98 92 Resp 18 20 16 B/P (MAP) 100/53 (69) 109/64 (79) 108/54 (72) Pulse Ox 99 99 99 98 O2 Delivery Ventilator Ventilator Ventilator Ventilator 01/17/19 01/17/19 01/18/19 01/18/19 23:59 23:59 00:45 01:00 Temp 98.9 98.9 Pulse 95 102 Resp 18 16 B/P (MAP) 105/59 (74) 101/57 (72) Pulse Ox 99 98 99 O2 Delivery Ventilator Mechanical Ventilator Ventilator Ventilator 01/18/19 01/18/19 01/18/19 01/18/19 02:00 03:00 03:44 04:00 Temp 98.6 98.6 Pulse 104 100 93 Resp 18 16 B/P (MAP) 113/68 (83) 104/60 (75) 97/46 (63) Pulse Ox 99 99 99 99 O2 Delivery Ventilator Ventilator Ventilator Ventilator 01/18/19 01/18/19 01/18/19 01/18/19 04:00 05:00 06:00 07:00 Pulse 93 84 80 Resp 16 18 15 B/P (MAP) 94/55 (68) 104/60 (75) 117/58 (77) Pulse Ox 100 100 100 O2 Delivery Mechanical Ventilator Ventilator Ventilator Ventilator 01/18/19 01/18/19 01/18/19 01/18/19 07:53 08:00 08:00 08:00 Temp 99.4 99.4 Pulse 79 79 74 Resp 16 B/P (MAP) 117/58 115/57 (76) 115/57 Pulse Ox 100 O2 Delivery Ventilator Mechanical Ventilator 01/18/19 01/18/19 01/18/19 01/18/19 08:42 08:45 09:00 09:00 Pulse 98 102 107 Resp 16 16 B/P (MAP) 113/58 (76) 122/68 (86) 119/70 (86) Pulse Ox 100 100 100 O2 Delivery Ventilator Ventilator Ventilator 01/18/19 01/18/19 01/18/19 01/18/19 09:15 09:30 09:45 10:00 Pulse 106 106 106 109 Resp 16 B/P (MAP) 126/70 (88) 130/73 (92) 119/70 (86) 110/66 (81) Pulse Ox 100 O2 Delivery Ventilator 01/18/19 01/18/19 01/18/19 01/18/19 10:15 10:30 11:00 11:51 Pulse 109 102 85 Resp 21 B/P (MAP) 112/60 (77) 67/40 (49) 125/59 (81) Pulse Ox 100 100 O2 Delivery Ventilator Ventilator 01/18/19 01/18/19 01/18/19 01/18/19 12:00 12:30 13:17 13:31 Pulse 101 Resp 19 B/P (MAP) 85/52 (63) Pulse Ox 100 100 O2 Delivery Mechanical Ventilator Ventilator Ventilator 01/18/19 01/18/19 01/18/19 13:34 13:36 14:00 Temp 98.9 98.9 Pulse 86 82 Resp 14 16 16 B/P (MAP) 97/50 (66) 91/49 (63) Pulse Ox 100 100 O2 Delivery Ventilator Ventilator Ventilator Intake and Output 01/17/19 01/17/19 01/18/19 14:59 22:59 06:59 Intake Total 560 ml 1374 ml 1603 ml Output Total 425 ml 390 ml 710 ml Balance 135 ml 984 ml 893 ml CHRISTINA CHAVARRIA MD January 18, 2019 14:40
[2019-01-18] MEDS: MIDAZOLAM 100mg/100ml NS BAG 100 ML IV PRN (16:41)
--- NOTE | 2019-01-18 19:07 | NUR ---
No sedation vacation on 01/[address] [place].
[2019-01-18] MEDS: ATORVASTATIN CALCIUM 10 MG TABLET. PO SCH (20:30)
[2019-01-18] MEDS: MIRTAZAPINE 7.5 MG TABLET. PO SCH (20:30)
[2019-01-18] MEDS: NOREPINEPHRIN 8MG/250ML PREMIX 250 ML IV PRN (20:32)
[2019-01-19] VITALS (30 sets, daily range): BP systolic 78–123; BP diastolic 43–74
[2019-01-19] MEDS: INSULIN LISPRO 300 UNITS/3 ML INSULN.PEN. SQ SCH ×4 (00:24→17:39)
[2019-01-19] MEDS: PIPERACILLIN/TAZOBACTAM 2.25 GM in IV NORMAL SALINE 50ML 50 ML IV SCH ×2 (00:24→05:59)
[2019-01-19] MEDS: fentaNYL PF VIAL 100 MCG/2 ML VIAL IV PRN ×5 (02:08→20:40)
[2019-01-19] MEDS: MIDAZOLAM 100mg/100ml NS BAG 100 ML IV PRN (05:03)
[2019-01-19 06:07] LABS: CALCIUM 8.4 mg/dL (8.5-10.1); CREATININE 1.4 mg/dL (0.6-1.0); GFR 37.1; POTASSIUM 3.6 mmol/L (3.5-5.1)
[2019-01-19 06:18] LABS: BASO # 0.1 x10^3/uL (0.0-0.2); BASO % 1 % (0-3); EOS # 0.4 x10^3/uL (0.0-0.7); EOS % 4 % (0-3); HEMATOCRIT 24.4 % (36.0-47.0); HEMOGLOBIN 7.7 g/dL (12.0-15.5); LYMPH # 1.2 x10^3/uL (1.0-4.8); LYMPH % 11 % (24-48); MEAN CORPUSCULAR HEMOGLOBIN 30 pg (25-35); MEAN CORPUSCULAR HGB CONC 32 g/dL (31-37); MEAN CORPUSCULAR VOLUME 93 fL (79-100); MONO # 0.9 x10^3/uL (0.0-1.1); MONO % 8 % (0-9); NEUT # 8.1 x10^3uL (1.8-7.7); NEUT % 76 % (31-73); PLATELET COUNT 255 x10^3/uL (140-400); RED BLOOD COUNT 2.61 x10^6/uL (3.50-5.40); RED CELL DISTRIBUTION WIDTH 20.5 % (11.5-14.5); WHITE BLOOD COUNT 10.7 x10^3/uL (4.0-11.0)
[2019-01-19] MEDS: PANTOPRAZOLE IV PUSH 40 MG VIAL. IVP SCH (06:27)
--- NOTE | 2019-01-19 07:16 | PDOC ---
Infectious Disease Note Subjective Subjective on vent and still on vasopressors ROS ROS no n/v/d/ Vital Sign Vital Signs Vital Signs Date Time Temp Pulse Resp B/P (MAP) Pulse Ox O2 Delivery O2 Flow Rate FiO2 01/19/19 06:30 84 16 107/52 (70) 100 Ventilator 01/19/19 04:00 99.0 99.0 Physical Exam PHYSICAL EXAM GENERAL: Sedated, orally intubated female, not in any distress. VITAL SIGNS: She is on vasopressor support. HEENT: NAD. Both pupils are round and reacting, orally intubated. NECK: Supple, no JVP, no lymphadenopathy. LUNGS: Decreased breath sounds. HEART: S1, S2 regular. No gallop or murmur. ABDOMEN: Soft, nontender. EXTREMITIES: No edema or cyanosis. SKIN: Unremarkable other than multiple areas of bruising as well as sacrococcygeal area of stage 3 decubitus. NEUROLOGIC: The patient was moving all extremities before sedation and intubation. Labs Lab Laboratory Tests Test 01/18/19 08:40 01/18/19 11:49 01/18/19 17:15 01/19/19 05:35 O2 Saturation 99 % (92-99) Arterial Blood pH 7.43 (7.35-7.45) Arterial Blood pCO2 at Patient Temp 42 mmHg (35-46) Arterial Blood pO2 at Patient Temp 133 mmHg (65-108) Arterial Blood HCO3 27 mmol/L (21-28) Arterial Blood Base Excess 3 mmol/L (-3-3) FiO2 40 Glucose (Fingerstick) 183 mg/dL (70-99) 165 mg/dL (70-99) White Blood Count 10.7 x10^3/uL (4.0-11.0) Red Blood Count 2.61 x10^6/uL (3.50-5.40) Hemoglobin 7.7 g/dL (12.0-15.5) Hematocrit 24.4 % (36.0-47.0) Mean Corpuscular Volume 93 fL (79-100) Mean Corpuscular Hemoglobin 30 pg (25-35) Mean Corpuscular Hemoglobin Concent 32 g/dL (31-37) Red Cell Distribution Width 20.5 % (11.5-14.5) Platelet Count 255 x10^3/uL (140-400) Neutrophils (%) (Auto) 76 % (31-73) Lymphocytes (%) (Auto) 11 % (24-48) Monocytes (%) (Auto) 8 % (0-9) Eosinophils (%) (Auto) 4 % (0-3) Basophils (%) (Auto) 1 % (0-3) Neutrophils # (Auto) 8.1 x10^3uL (1.8-7.7) Lymphocytes # (Auto) 1.2 x10^3/uL (1.0-4.8) Monocytes # (Auto) 0.9 x10^3/uL (0.0-1.1) Eosinophils # (Auto) 0.4 x10^3/uL (0.0-0.7) Basophils # (Auto) 0.1 x10^3/uL (0.0-0.2) Prothrombin Time 15.0 SEC (11.7-14.0) Prothromb Time International Ratio 1.2 (0.8-1.1) Sodium Level 140 mmol/L (136-145) Potassium Level 3.6 mmol/L (3.5-5.1) Chloride Level 106 mmol/L (98-107) Carbon Dioxide Level 30 mmol/L (21-32) Anion Gap 4 (6-14) Blood Urea Nitrogen 49 mg/dL (7-20) Creatinine 1.4 mg/dL (0.6-1.0) Estimated GFR (Cockcroft-Gault) 37.1 Glucose Level 196 mg/dL (70-99) Calcium Level 8.4 mg/dL (8.5-10.1) Magnesium Level 1.7 mg/dL (1.8-2.4) Micro Microbiology 01/16/19 Blood Culture - Preliminary, Resulted NO GROWTH AFTER 1 DAY Objective Assessment Fever Respiratory failure Circulatory failure CHF/Cardiomyopathy DM A fib Stage 3 , sacral ulcer Plan Plan of Care cont zosyn and zyvox check cultures supportive care CT noted d/w MICHELINE NETTLES MD January 19, 2019 07:16
--- NOTE | 2019-01-19 07:46 | RAD ---
Portable chest, 01/19/2019: HISTORY: Respiratory failure Comparison is made to yesterday's study. The ET tube tip lies well above the isaiah. A left PICC extends into the superior aspect the right atrium. A Dobbhoff type tube extends into the stomach, although its tip is not visible. The heart is mildly enlarged and unchanged. There is a moderate volume of ongoing left-sided pleural fluid. The degree of pleural thickening laterally has decreased slightly, however, that is likely due to patient positioning. There are unchanged patchy infiltrates in the lower chest. There is no evidence of pneumothorax. No new abnormality is detected. IMPRESSION: No significant change since yesterday study. Electronically signed by: Robin Howard MD (01/19/2019 7:42 AM) [facility]
[2019-01-19] MEDS: ALBUTEROL SULFATE 2.5 MG/3 ML NEBU. NEB SCH ×2 (08:22→21:38)
[2019-01-19 08:24] LABS: BASE EXCESS ABG 2 mmol/L (-3-3); HCO3 ABG 27 mmol/L (21-28); PCO2 ABG 42 mmHg (35-46); PO2 ABG 92 mmHg (65-108); SAT O2 ABG 97 % (92-99)
[2019-01-19 09:17] LABS: FIO2 ABG 40%
--- NOTE | 2019-01-19 09:53 | RAD ---
Ultrasound-guided left-sided thoracentesis 01/19/2019 9:49 AM Indication: LT LOCULATED EFFUSION Procedure: Informed consent was obtained. A timeout procedure was performed. Sonographic evaluation of the left chest was performed demonstrating moderate pleural effusion. The left posterior chest was prepped and draped in sterile fashion. 1% lidocaine without epinephrine was administered for local anesthesia. Real-time ultrasonographic guidance was used in passing a 5 Lao Yueh catheter into the left pleural space. 1.2 L of serosanguineous pleural fluid was removed. Samples of fluid were sent to the lab for further evaluation per ordering physician request. The catheter was removed and pressure held to achieve hemostasis. A sterile dressing was applied. No immediate complications were identified. The patient tolerated the procedure well. Impression: Left sided ultrasound-guided thoracentesis
[2019-01-19] MEDS: ASPIRIN 325 MG TABLET PO SCH (10:33)
[2019-01-19] MEDS: THIAMINE 100 MG TABLET. PO SCH (10:33)
[2019-01-19] MEDS: ASCORBIC ACID 500 MG TABLET PO SCH (10:34)
[2019-01-19] MEDS: AMIODARONE HCL 200 MG TABLET. PO SCH (10:34)
--- NOTE | 2019-01-19 10:34 | PDOC ---
CARDIO Progress Notes Date and Time Date of Service 01/19/19 Time of Evaluation 1015 Subjective Subjective: Other (intubated) Vitals Vitals Vital Signs Date Time Temp Pulse Resp B/P (MAP) Pulse Ox O2 Delivery O2 Flow Rate FiO2 01/19/19 08:07 100 Ventilator 01/19/19 06:30 84 16 107/52 (70) 01/19/19 04:00 99.0 99.0 Weight Weight [ ] Input and Output Intake and Output Intake and Output 01/19/19 06:59 Intake Total 2686 ml Output Total 1355 ml Balance 1331 ml Intake Oral 175 ml IV Total 911 ml Tube Feeding 1400 ml Other 200 ml Output Urine Total 1355 ml Laboratory Labs Laboratory Tests Test 01/18/19 11:49 01/18/19 17:15 01/19/19 05:35 01/19/19 08:20 Glucose (Fingerstick) 183 mg/dL (70-99) 165 mg/dL (70-99) White Blood Count 10.7 x10^3/uL (4.0-11.0) Red Blood Count 2.61 x10^6/uL (3.50-5.40) Hemoglobin 7.7 g/dL (12.0-15.5) Hematocrit 24.4 % (36.0-47.0) Mean Corpuscular Volume 93 fL (79-100) Mean Corpuscular Hemoglobin 30 pg (25-35) Mean Corpuscular Hemoglobin Concent 32 g/dL (31-37) Red Cell Distribution Width 20.5 % (11.5-14.5) Platelet Count 255 x10^3/uL (140-400) Neutrophils (%) (Auto) 76 % (31-73) Lymphocytes (%) (Auto) 11 % (24-48) Monocytes (%) (Auto) 8 % (0-9) Eosinophils (%) (Auto) 4 % (0-3) Basophils (%) (Auto) 1 % (0-3) Neutrophils # (Auto) 8.1 x10^3uL (1.8-7.7) Lymphocytes # (Auto) 1.2 x10^3/uL (1.0-4.8) Monocytes # (Auto) 0.9 x10^3/uL (0.0-1.1) Eosinophils # (Auto) 0.4 x10^3/uL (0.0-0.7) Basophils # (Auto) 0.1 x10^3/uL (0.0-0.2) Prothrombin Time 15.0 SEC (11.7-14.0) Prothromb Time International Ratio 1.2 (0.8-1.1) Sodium Level 140 mmol/L (136-145) Potassium Level 3.6 mmol/L (3.5-5.1) Chloride Level 106 mmol/L (98-107) Carbon Dioxide Level 30 mmol/L (21-32) Anion Gap 4 (6-14) Blood Urea Nitrogen 49 mg/dL (7-20) Creatinine 1.4 mg/dL (0.6-1.0) Estimated GFR (Cockcroft-Gault) 37.1 Glucose Level 196 mg/dL (70-99) Calcium Level 8.4 mg/dL (8.5-10.1) Magnesium Level 1.7 mg/dL (1.8-2.4) O2 Saturation 97 % (92-99) Arterial Blood pH 7.42 (7.35-7.45) Arterial Blood pCO2 at Patient Temp 42 mmHg (35-46) Arterial Blood pO2 at Patient Temp 92 mmHg (65-108) Arterial Blood HCO3 27 mmol/L (21-28) Arterial Blood Base Excess 2 mmol/L (-3-3) FiO2 40% Microbiology Micro Microbiology 01/16/19 Blood Culture - Preliminary, Resulted NO GROWTH AFTER 2 DAYS Physical Exam HEENT: Neck Supple W Full Motion Chest: Symmetric LUNGS: Other (intubated/mechanical vent) Heart: RRR (SR LBBB) Abdomen: Soft N/T Extremities: No Edema Neurology: other (sedated) Assessment Assessment 1. S/p cardiopulmonary arrest at [facility] 01/14/19. unclear rhythm, suspect hypoxia induced. Current EF better at 40% 2. Acute and chronic respiratory failure: s/p intubation. multifactorial PNA, CHF, CT chest with large pleural effusion. ? need for thoracentesis 3. Acute on chronic systolic heart failure 4. NICM; LVEF 15-20% now at 40% 5. NICKIE on CKD3; Cr better at 1.4 6. Anemia; hgb 7.7 with hx of PUD 7. Leukocytosis/fever/ ? sepsis: ID following 8. Hypotension; pressor support 8. DM2/HLP 9. s/p lead-less PPM ([employer]). Device check with normal function- device doesn't collect episodes of AT/AF or VT/VF. No significant ectopy on tele 10. PAFIB; maintaining SR LBBB. Previously on Pradaxa, but discontinued due to GI bleed 11. Protein-calorie malnutrition Recommendations Continue pressor support Amiodarone, ASA. Resume BP meds when off levophed. D/w pulmonary and primary cardiology. Will add inotropic support with dobutamine. ASA for stroke prevention as patient is poor candidate for OAC given h/o GI bleeding Hold ACEi with NICKIE Lung optimization as per AIME Cotto APRN January 19, 2019 10:34
--- NOTE | 2019-01-19 11:28 | PDOC ---
PULMONARY PROGRESS NOTES Subjective PT SEDATED ON AC MODE/ 8 MICS OF LEVO Vitals Vital Signs Date Time Temp Pulse Resp B/P (MAP) Pulse Ox O2 Delivery O2 Flow Rate FiO2 01/19/19 11:07 100 Ventilator 01/19/19 10:34 95 103/53 01/19/19 06:30 16 01/19/19 04:00 99.0 99.0 Lungs: Clear Cardiovascular: S1, S2 Abdomen: Soft, Non-tender Extremities: Other (EDEMA) Skin: Warm Labs Laboratory Tests Test 01/17/19 12:53 01/17/19 15:05 01/17/19 18:08 01/17/19 23:59 Glucose (Fingerstick) 165 mg/dL (70-99) 170 mg/dL (70-99) 193 mg/dL (70-99) O2 Saturation 97 % (92-99) Arterial Blood pH 7.40 (7.35-7.45) Arterial Blood pCO2 at Patient Temp 49 mmHg (35-46) Arterial Blood pO2 at Patient Temp 111 mmHg (65-108) Arterial Blood HCO3 30 mmol/L (21-28) Arterial Blood Base Excess 4 mmol/L (-3-3) FiO2 40 Test 01/18/19 05:44 01/18/19 06:30 01/18/19 08:40 01/18/19 11:49 Glucose (Fingerstick) 149 mg/dL (70-99) 183 mg/dL (70-99) White Blood Count 8.6 x10^3/uL (4.0-11.0) Red Blood Count 2.49 x10^6/uL (3.50-5.40) Hemoglobin 7.3 g/dL (12.0-15.5) Hematocrit 23.2 % (36.0-47.0) Mean Corpuscular Volume 93 fL (79-100) Mean Corpuscular Hemoglobin 30 pg (25-35) Mean Corpuscular Hemoglobin Concent 32 g/dL (31-37) Red Cell Distribution Width 20.4 % (11.5-14.5) Platelet Count 199 x10^3/uL (140-400) Neutrophils (%) (Auto) 73 % (31-73) Lymphocytes (%) (Auto) 12 % (24-48) Monocytes (%) (Auto) 11 % (0-9) Eosinophils (%) (Auto) 3 % (0-3) Basophils (%) (Auto) 1 % (0-3) Neutrophils # (Auto) 6.3 x10^3uL (1.8-7.7) Lymphocytes # (Auto) 1.1 x10^3/uL (1.0-4.8) Monocytes # (Auto) 0.9 x10^3/uL (0.0-1.1) Eosinophils # (Auto) 0.3 x10^3/uL (0.0-0.7) Basophils # (Auto) 0.1 x10^3/uL (0.0-0.2) Sodium Level 142 mmol/L (136-145) Potassium Level 3.6 mmol/L (3.5-5.1) Chloride Level 105 mmol/L (98-107) Carbon Dioxide Level 30 mmol/L (21-32) Anion Gap 7 (6-14) Blood Urea Nitrogen 52 mg/dL (7-20) Creatinine 3.0 mg/dL (0.6-1.0) Estimated GFR (Cockcroft-Gault) 15.4 Glucose Level 160 mg/dL (70-99) Calcium Level 7.7 mg/dL (8.5-10.1) O2 Saturation 99 % (92-99) Arterial Blood pH 7.43 (7.35-7.45) Arterial Blood pCO2 at Patient Temp 42 mmHg (35-46) Arterial Blood pO2 at Patient Temp 133 mmHg (65-108) Arterial Blood HCO3 27 mmol/L (21-28) Arterial Blood Base Excess 3 mmol/L (-3-3) FiO2 40 Test 01/18/19 17:15 01/19/19 05:35 01/19/19 08:20 01/19/19 08:55 Glucose (Fingerstick) 165 mg/dL (70-99) White Blood Count 10.7 x10^3/uL (4.0-11.0) Red Blood Count 2.61 x10^6/uL (3.50-5.40) Hemoglobin 7.7 g/dL (12.0-15.5) Hematocrit 24.4 % (36.0-47.0) Mean Corpuscular Volume 93 fL (79-100) Mean Corpuscular Hemoglobin 30 pg (25-35) Mean Corpuscular Hemoglobin Concent 32 g/dL (31-37) Red Cell Distribution Width 20.5 % (11.5-14.5) Platelet Count 255 x10^3/uL (140-400) Neutrophils (%) (Auto) 76 % (31-73) Lymphocytes (%) (Auto) 11 % (24-48) Monocytes (%) (Auto) 8 % (0-9) Eosinophils (%) (Auto) 4 % (0-3) Basophils (%) (Auto) 1 % (0-3) Neutrophils # (Auto) 8.1 x10^3uL (1.8-7.7) Lymphocytes # (Auto) 1.2 x10^3/uL (1.0-4.8) Monocytes # (Auto) 0.9 x10^3/uL (0.0-1.1) Eosinophils # (Auto) 0.4 x10^3/uL (0.0-0.7) Basophils # (Auto) 0.1 x10^3/uL (0.0-0.2) Prothrombin Time 15.0 SEC (11.7-14.0) Prothromb Time International Ratio 1.2 (0.8-1.1) Sodium Level 140 mmol/L (136-145) Potassium Level 3.6 mmol/L (3.5-5.1) Chloride Level 106 mmol/L (98-107) Carbon Dioxide Level 30 mmol/L (21-32) Anion Gap 4 (6-14) Blood Urea Nitrogen 49 mg/dL (7-20) Creatinine 1.4 mg/dL (0.6-1.0) Estimated GFR (Cockcroft-Gault) 37.1 Glucose Level 196 mg/dL (70-99) Calcium Level 8.4 mg/dL (8.5-10.1) Magnesium Level 1.7 mg/dL (1.8-2.4) O2 Saturation 97 % (92-99) Arterial Blood pH 7.42 (7.35-7.45) Arterial Blood pCO2 at Patient Temp 42 mmHg (35-46) Arterial Blood pO2 at Patient Temp 92 mmHg (65-108) Arterial Blood HCO3 27 mmol/L (21-28) Arterial Blood Base Excess 2 mmol/L (-3-3) FiO2 40% Body Fluid pH 7.20 Laboratory Tests Test 01/18/19 11:49 01/18/19 17:15 01/19/19 05:35 01/19/19 08:20 Glucose (Fingerstick) 183 mg/dL (70-99) 165 mg/dL (70-99) White Blood Count 10.7 x10^3/uL (4.0-11.0) Red Blood Count 2.61 x10^6/uL (3.50-5.40) Hemoglobin 7.7 g/dL (12.0-15.5) Hematocrit 24.4 % (36.0-47.0) Mean Corpuscular Volume 93 fL (79-100) Mean Corpuscular Hemoglobin 30 pg (25-35) Mean Corpuscular Hemoglobin Concent 32 g/dL (31-37) Red Cell Distribution Width 20.5 % (11.5-14.5) Platelet Count 255 x10^3/uL (140-400) Neutrophils (%) (Auto) 76 % (31-73) Lymphocytes (%) (Auto) 11 % (24-48) Monocytes (%) (Auto) 8 % (0-9) Eosinophils (%) (Auto) 4 % (0-3) Basophils (%) (Auto) 1 % (0-3) Neutrophils # (Auto) 8.1 x10^3uL (1.8-7.7) Lymphocytes # (Auto) 1.2 x10^3/uL (1.0-4.8) Monocytes # (Auto) 0.9 x10^3/uL (0.0-1.1) Eosinophils # (Auto) 0.4 x10^3/uL (0.0-0.7) Basophils # (Auto) 0.1 x10^3/uL (0.0-0.2) Prothrombin Time 15.0 SEC (11.7-14.0) Prothromb Time International Ratio 1.2 (0.8-1.1) Sodium Level 140 mmol/L (136-145) Potassium Level 3.6 mmol/L (3.5-5.1) Chloride Level 106 mmol/L (98-107) Carbon Dioxide Level 30 mmol/L (21-32) Anion Gap 4 (6-14) Blood Urea Nitrogen 49 mg/dL (7-20) Creatinine 1.4 mg/dL (0.6-1.0) Estimated GFR (Cockcroft-Gault) 37.1 Glucose Level 196 mg/dL (70-99) Calcium Level 8.4 mg/dL (8.5-10.1) Magnesium Level 1.7 mg/dL (1.8-2.4) O2 Saturation 97 % (92-99) Arterial Blood pH 7.42 (7.35-7.45) Arterial Blood pCO2 at Patient Temp 42 mmHg (35-46) Arterial Blood pO2 at Patient Temp 92 mmHg (65-108) Arterial Blood HCO3 27 mmol/L (21-28) Arterial Blood Base Excess 2 mmol/L (-3-3) FiO2 40% Test 01/19/19 08:55 Body Fluid pH 7.20 Medications Active Scripts Medications Dose Route/Sig Max Daily Dose Days Date Category Vitamin C (Ascorbate Calcium) 500 Mg Tablet 500 Mg PO DAILY 01/15/19 Reported Aspirin 325 Mg Tablet 1 Tab PO DAILY 01/15/19 Reported Coreg (Carvedilol) 3.125 Mg Tablet 3.125 Mg PO BIDWMEALS 01/15/19 Reported Zofran (Ondansetron Hcl) 4 Mg Tablet 4 Mg PO PRN Q6HRS PRN 01/15/19 Reported B-1 (Thiamine HCl) 100 Mg Tablet 100 Mg PO DAILY 01/15/19 Reported Docusate Sodium 100 Mg Capsule 100 Mg PO PRN PRN 01/15/19 Reported Acetaminophen 160 Mg/5 Ml Oral.susp 650 Mg PO PRN Q4HRS PRN 01/15/19 Reported Milk Of Magnesia (Magnesium Hydroxide) 2,400 Mg/10 Ml Oral.susp 2,400 Mg PO PRN PRN 01/15/19 Reported Mirtazapine 7.5 Mg Tablet 7.5 Mg PO QHS 01/15/19 Reported Albuterol Sulfate Neb Soln (Albuterol Sulfate) 2.5 Mg/3 Ml Vial.neb 2.5 Mg NEB BID 01/15/19 Reported Atorvastatin Calcium 10 Mg Tablet 10 Mg PO HS 01/15/19 Reported Lasix (Furosemide) 40 Mg Tablet 40 Mg PO BID 01/15/19 Reported Protonix (Pantoprazole Sodium) 20 Mg Tablet.dr 40 Mg PO DAILY 01/15/19 Reported Amiodarone Hcl 200 Mg Tablet 1 Tab PO DAILY 01/15/19 Reported Seroquel (Quetiapine Fumarate) 25 Mg Tablet 25 Mg PO HS 01/15/19 Reported Tramadol Hcl 50 Mg Tablet 25 Mg PO Q6HRS PRN 01/15/19 Reported Seroquel (Quetiapine Fumarate) 25 Mg Tablet 12.5 Mg PO PRN Q6HRS PRN 01/15/19 Reported Comments CXR 01/19 IMPROVED LEFT EFFUSION Impression . IMPRESSION: 1. Acute respiratory failure, status post cardiopulmonary arrest, the patient transferred from [facility]. 2. Acute on chronic systolic heart failure. EF 40% 3. Abnormal x-ray compatible with bilateral airspace disease in the lower lobes, possible pneumonia. left effusion, s/p left tap today 4. Type 2 diabetes. 5. Severe protein malnutrition. 6. Thrombocytopenia. 7. History of pacemaker implantation. 8. Prior history of gastric ulcers. 9. ABNORMAL CXR EFFUSION Plan . AC MODE ON LEVO, TRY WEANING TODAY WEAN SEDATION/ ASSESS MS CARDIOLOGY REC WILL CONTINUE SUPPORT DAUGHTER REPORTS MULTIPLE EPISODES OF APNEAS/ NO SLEEP STUDY IN PAST WILL NEED SS OP MIKHAIL SORENSEN MD January 19, 2019 11:28
--- NOTE | 2019-01-19 11:58 | PDOC ---
SUBJECTIVE ROS Intubated, off versed, still on Levophed OBJECTIVE Vital Signs Vital Signs Date Time Temp Pulse Resp B/P (MAP) Pulse Ox O2 Delivery O2 Flow Rate FiO2 01/19/19 11:07 100 Ventilator 01/19/19 11:00 94 18 100/55 (70) 01/19/19 07:00 98.8 98.8 I & 0 Intake and Output 01/19/19 06:59 Intake Total 2686 ml Output Total 1355 ml Balance 1331 ml Intake Oral 175 ml IV Total 911 ml Tube Feeding 1400 ml Other 200 ml Output Urine Total 1355 ml PHYSICAL EXAM Physical Exam GEN: Intubated HEEN: Intubated , off sedation NECK: Supple CVS: RRR RESP: CTA ant GI: Soft , NT : Kahn + Ext- No LE edema NEuro- Intubated Skin No rash DIAGNOSIS/ASSESSMENT Assessment & Plan NICKIE - Etiology- Cardio -Renal, Post cardiac arrest Baseline Cr at [facility]9 Renal function Improving E-Lytes and acid base stable, Currently no emergent indication for HD Strict I/O, daily weights , Anticipate fluctuations in renal function 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 Intralobular septal thickening and patchy groundglass opacities are seen consistent with edema. cardiology following Elevated LFT's DM- as per primary A fib - On Amiodarone As per cardiology Sacral ulcer Anemia- Hgb stable Bilateral Pl effusion - Large left pleural effusion, moderate right pleural effusion with underlying atelectasis. Underlying infiltrates are not excluded s/p Thoracentesis 01/19 - 1.2 lts removed , Pulm following Continue supportive care Has significant CMP and her Functional status is poor Discussed with Daughter at bedside and RN COMMENT/RELEVANT DATA Meds Current Medications Medications (Trade) Dose Ordered Sig/Destiny Start Time Stop Time Status Last Admin Dose Admin Acetaminophen (Tylenol) 650 mg PRN Q4HRS PRN 01/16/19 08:15 01/16/19 08:09 650 MG Albuterol Sulfate (Ventolin Neb Soln) 2.5 mg RTBID 01/15/19 20:00 01/19/19 08:22 2.5 MG Amiodarone HCl (Cordarone) 200 mg DAILY 01/16/19 09:00 01/19/19 10:34 200 MG Ascorbic Acid (Vitamin C) 500 mg DAILY 01/16/19 09:00 01/19/19 10:34 500 MG Aspirin (Dieudonne Aspirin) 325 mg DAILY 01/16/19 09:00 01/19/19 10:33 325 MG Atorvastatin Calcium (Lipitor) 10 mg HS 01/15/19 21:00 01/18/19 20:30 10 MG Calcium Gluconate (Calcium Gluconate) 1,000 mg 1X ONCE 01/15/19 15:30 01/15/19 15:31 DC 01/15/19 15:58 1,000 MG Carvedilol (Coreg) 3.125 mg BIDWMEALS 01/15/19 18:30 01/18/19 14:39 DC Dextrose (Dextrose 50%-Water Syringe) 12.5 gm PRN Q15MIN PRN 01/15/19 17:45 Docusate Sodium (Colace) 100 mg PRN DAILY PRN 01/15/19 17:15 Famotidine (Pepcid) 20 mg QHS 01/16/19 21:00 01/18/19 13:06 DC 01/17/19 21:08 20 MG Fentanyl Citrate (Fentanyl 2ml Vial) 50 mcg PRN Q2HR PRN 01/15/19 17:15 01/19/19 04:14 50 MCG Furosemide (Lasix) 40 mg [id number] 01/16/19 09:00 01/16/19 10:50 DC Heparin Sodium (Porcine) (Heparin Sodium) 5,000 unit Q12HR 01/16/19 21:00 Future Hold 01/18/19 13:18 5,000 UNIT Insulin Human Lispro (HumaLOG) 0-5 UNITS Q6HRS 01/16/19 00:00 01/18/19 17:49 2 UNITS Linezolid/Dextrose 300 ml @ 300 mls/hr Q12HR 01/16/19 09:00 01/19/19 10:35 300 MLS/HR Magnesium Hydroxide (Milk Of Magnesia) 2,400 mg PRN DAILY PRN 01/15/19 18:45 Midazolam HCl 100 ml @ 5 mls/hr CONT PRN 01/15/19 17:15 01/19/19 05:03 8 MLS/HR Midazolam HCl (Versed) 5 mg 1X ONCE 01/15/19 15:00 01/15/19 15:01 DC 01/15/19 15:59 5 MG Mirtazapine (Remeron) 7.5 mg QHS 01/16/19 21:00 01/18/19 20:30 7.5 MG Norepinephrine Bitartrate 250 ml @ 1.875 mls/ hr CONT PRN 01/15/19 17:00 01/18/19 20:32 15 MLS/HR Ondansetron HCl (Zofran Odt) 4 mg PRN Q6HRS PRN 01/15/19 18:45 Pantoprazole Sodium (PROTONIX VIAL for IV PUSH) 40 mg DAILYAC 01/19/19 07:30 01/19/19 06:27 40 MG Pantoprazole Sodium (Protonix) 40 mg DAILYAC 01/16/19 07:30 01/18/19 08:02 DC 01/18/19 07:52 40 MG Piperacillin Sod/ Tazobactam Sod (Zosyn Per Pharmacy) 1 each PRN DAILY PRN 01/15/19 17:45 UNV Piperacillin Sod/ Tazobactam Sod 2.25 gm/Sodium Chloride 50 ml @ 100 mls/hr Q6HRS 01/15/19 18:00 01/19/19 11:25 DC 01/19/19 05:59 100 MLS/HR Piperacillin Sod/ Tazobactam Sod 3.375 gm/Sodium Chloride 50 ml @ 100 mls/hr Q6HRS 01/19/19 12:00 Propofol 50 ml @ As Directed STK-MED ONCE 01/15/19 15:02 01/15/19 15:03 DC Propofol (Diprivan) 200 mg 1X ONCE 01/15/19 15:00 01/15/19 15:06 DC Quetiapine Fumarate (SEROquel) 25 mg QHS 01/15/19 21:00 01/18/19 14:39 DC 01/17/19 21:08 25 MG Sodium Chloride 500 ml @ 250 mls/hr Q1HR PRN 01/17/19 19:15 Thiamine Mononitrate (Vitamin B-1) 100 mg DAILY 01/16/19 09:00 01/19/19 10:33 100 MG Tramadol HCl (Ultram) 25 mg PRN Q6HRS PRN 01/15/19 17:15 Vancomycin HCl (Vanco Per Pharmacy) 1 each PRN DAILY PRN 01/15/19 17:45 01/16/19 08:06 DC 01/15/19 21:10 1 EACH Vancomycin HCl (Vancomycin Trough Level) 1 each 1X ONCE 01/17/19 20:30 01/17/19 20:31 Cancel Vancomycin HCl 1.25 gm/Sodium Chloride 250 ml @ 167 mls/hr Q24H 01/16/19 21:00 01/16/19 21:00 DC Vancomycin HCl 2 gm/Sodium Chloride 500 ml @ 250 mls/hr 1X ONCE 01/15/19 20:00 01/15/19 21:59 DC 01/15/19 20:56 250 MLS/HR Lab Laboratory Tests Test 01/18/19 17:15 01/19/19 05:35 01/19/19 08:20 01/19/19 08:55 Glucose (Fingerstick) 165 mg/dL (70-99) White Blood Count 10.7 x10^3/uL (4.0-11.0) Red Blood Count 2.61 x10^6/uL (3.50-5.40) Hemoglobin 7.7 g/dL (12.0-15.5) Hematocrit 24.4 % (36.0-47.0) Mean Corpuscular Volume 93 fL (79-100) Mean Corpuscular Hemoglobin 30 pg (25-35) Mean Corpuscular Hemoglobin Concent 32 g/dL (31-37) Red Cell Distribution Width 20.5 % (11.5-14.5) Platelet Count 255 x10^3/uL (140-400) Neutrophils (%) (Auto) 76 % (31-73) Lymphocytes (%) (Auto) 11 % (24-48) Monocytes (%) (Auto) 8 % (0-9) Eosinophils (%) (Auto) 4 % (0-3) Basophils (%) (Auto) 1 % (0-3) Neutrophils # (Auto) 8.1 x10^3uL (1.8-7.7) Lymphocytes # (Auto) 1.2 x10^3/uL (1.0-4.8) Monocytes # (Auto) 0.9 x10^3/uL (0.0-1.1) Eosinophils # (Auto) 0.4 x10^3/uL (0.0-0.7) Basophils # (Auto) 0.1 x10^3/uL (0.0-0.2) Prothrombin Time 15.0 SEC (11.7-14.0) Prothromb Time International Ratio 1.2 (0.8-1.1) Sodium Level 140 mmol/L (136-145) Potassium Level 3.6 mmol/L (3.5-5.1) Chloride Level 106 mmol/L (98-107) Carbon Dioxide Level 30 mmol/L (21-32) Anion Gap 4 (6-14) Blood Urea Nitrogen 49 mg/dL (7-20) Creatinine 1.4 mg/dL (0.6-1.0) Estimated GFR (Cockcroft-Gault) 37.1 Glucose Level 196 mg/dL (70-99) Calcium Level 8.4 mg/dL (8.5-10.1) Magnesium Level 1.7 mg/dL (1.8-2.4) O2 Saturation 97 % (92-99) Arterial Blood pH 7.42 (7.35-7.45) Arterial Blood pCO2 at Patient Temp 42 mmHg (35-46) Arterial Blood pO2 at Patient Temp 92 mmHg (65-108) Arterial Blood HCO3 27 mmol/L (21-28) Arterial Blood Base Excess 2 mmol/L (-3-3) FiO2 40% Body Fluid pH 7.20 Results All relevant outside records, renal labs, imaging studies, telemetry/EKG's were reviewed. ESTEBAN GANDARA MD January 19, 2019 11:58
[2019-01-19] MEDS: PIPERACILLIN/TAZOBACTAM 3.375 GM in IV NORMAL SALINE 50ML 50 ML IV SCH ×2 (12:17→17:35)
[2019-01-19] MEDS: NOREPINEPHRIN 8MG/250ML PREMIX 250 ML IV PRN (12:26)
--- NOTE | 2019-01-19 12:27 | RAD ---
Portable chest, 01/19/2019, 10:22 AM: HISTORY: Postthoracentesis evaluation The ET tube, left PICC and Dobbhoff type tube remain in place in satisfactory positions the heart size is unchanged. The left pleural effusion appears to have been largely evacuated via thoracentesis with improved aeration of the left lower chest. There is mild unchanged infiltrate and pleural fluid in the right lower chest. There is no evidence of pneumothorax. No new abnormality is detected. IMPRESSION: 1. Stable tube positions. 2. Improved aeration of the left lung status post left thoracentesis. Electronically signed by: Robin Howard MD (01/19/2019 12:25 PM) [facility]
--- NOTE | 2019-01-19 12:28 | PDOC ---
PROGRESS NOTES Subjective Subjective off versed on still on levophed. had 1.2 liter left thoracentesis today. lab reviewed. magnesium 1.7. renal function improved. Objective Objective Vital Signs Date Time Temp Pulse Resp B/P (MAP) Pulse Ox O2 Delivery O2 Flow Rate FiO2 01/19/19 12:00 99.3 100 18 122/60 (80) 100 Ventilator 99.3 Intake and Output 01/19/19 06:59 Intake Total 2686 ml Output Total 1355 ml Balance 1331 ml Intake Oral 175 ml IV Total 911 ml Tube Feeding 1400 ml Other 200 ml Output Urine Total 1355 ml Physical Exam Abdomen: Soft Heart: Regular rate, Normal S1, Normal S2 Extremities: Other (1 plus edema feet) General: Other (eyes closed) HEENT: Atraumatic Lungs: Other (clear anteriorly) Neuro: Other (sleeping) Psych/Mental Status: Other (sleeping) Skin: No rashes Assessment Assessment Problems1. Cardiopulmonary arrest. 2. Aspiration pneumonia suspected 3. Fever.resolved 4. Leukocytosis.resolved 5. Acute kidney injury most likely secondary to the cardiopulmonary arrest.improving 6. Hypotension still on levophed 7. Elevated liver function tests improved 8. Nonischemic cardiomyopathy with improvement of left ventricular ejection fraction 15-20% improved to 40%. 9. Acute on chronic hypoxic and hypercapnic respiratory failure, on the ventilator. 10. Nonischemic cardiomyopathy. 11. Acute on chronic systolic congestive heart failure. 12. Paroxysmal atrial fibrillation, but not a candidate for Pradaxa due to recent gastrointestinal bleed in 06/2018 from gastric ulcer. 13. Oropharyngeal dysphagia. NG tube feeding 14. Diabetes mellitus type 2. 15. Mild coronary artery disease. hypomagnesemia Medical Problems: (1) Cardiac arrest Status: Acute (2) HCAP (healthcare-associated pneumonia) Status: Acute (3) Liver failure Status: Acute Plan Plan of Care attempt to wean levophed iv magnesium continue ventilator support continue zyvox and zosyn lab tomorrow tube feeding Comment Review of Relevant I have reviewed the following items kristen (where applicable) has been applied. Labs Laboratory Tests Test 01/17/19 12:53 01/17/19 15:05 01/17/19 18:08 01/17/19 23:59 Glucose (Fingerstick) 165 mg/dL (70-99) 170 mg/dL (70-99) 193 mg/dL (70-99) O2 Saturation 97 % (92-99) Arterial Blood pH 7.40 (7.35-7.45) Arterial Blood pCO2 at Patient Temp 49 mmHg (35-46) Arterial Blood pO2 at Patient Temp 111 mmHg (65-108) Arterial Blood HCO3 30 mmol/L (21-28) Arterial Blood Base Excess 4 mmol/L (-3-3) FiO2 40 Test 01/18/19 05:44 01/18/19 06:30 01/18/19 08:40 01/18/19 11:49 Glucose (Fingerstick) 149 mg/dL (70-99) 183 mg/dL (70-99) White Blood Count 8.6 x10^3/uL (4.0-11.0) Red Blood Count 2.49 x10^6/uL (3.50-5.40) Hemoglobin 7.3 g/dL (12.0-15.5) Hematocrit 23.2 % (36.0-47.0) Mean Corpuscular Volume 93 fL (79-100) Mean Corpuscular Hemoglobin 30 pg (25-35) Mean Corpuscular Hemoglobin Concent 32 g/dL (31-37) Red Cell Distribution Width 20.4 % (11.5-14.5) Platelet Count 199 x10^3/uL (140-400) Neutrophils (%) (Auto) 73 % (31-73) Lymphocytes (%) (Auto) 12 % (24-48) Monocytes (%) (Auto) 11 % (0-9) Eosinophils (%) (Auto) 3 % (0-3) Basophils (%) (Auto) 1 % (0-3) Neutrophils # (Auto) 6.3 x10^3uL (1.8-7.7) Lymphocytes # (Auto) 1.1 x10^3/uL (1.0-4.8) Monocytes # (Auto) 0.9 x10^3/uL (0.0-1.1) Eosinophils # (Auto) 0.3 x10^3/uL (0.0-0.7) Basophils # (Auto) 0.1 x10^3/uL (0.0-0.2) Sodium Level 142 mmol/L (136-145) Potassium Level 3.6 mmol/L (3.5-5.1) Chloride Level 105 mmol/L (98-107) Carbon Dioxide Level 30 mmol/L (21-32) Anion Gap 7 (6-14) Blood Urea Nitrogen 52 mg/dL (7-20) Creatinine 3.0 mg/dL (0.6-1.0) Estimated GFR (Cockcroft-Gault) 15.4 Glucose Level 160 mg/dL (70-99) Calcium Level 7.7 mg/dL (8.5-10.1) O2 Saturation 99 % (92-99) Arterial Blood pH 7.43 (7.35-7.45) Arterial Blood pCO2 at Patient Temp 42 mmHg (35-46) Arterial Blood pO2 at Patient Temp 133 mmHg (65-108) Arterial Blood HCO3 27 mmol/L (21-28) Arterial Blood Base Excess 3 mmol/L (-3-3) FiO2 40 Test 01/18/19 17:15 01/19/19 00:21 01/19/19 05:35 01/19/19 08:20 Glucose (Fingerstick) 165 mg/dL (70-99) 188 mg/dL (70-99) White Blood Count 10.7 x10^3/uL (4.0-11.0) Red Blood Count 2.61 x10^6/uL (3.50-5.40) Hemoglobin 7.7 g/dL (12.0-15.5) Hematocrit 24.4 % (36.0-47.0) Mean Corpuscular Volume 93 fL (79-100) Mean Corpuscular Hemoglobin 30 pg (25-35) Mean Corpuscular Hemoglobin Concent 32 g/dL (31-37) Red Cell Distribution Width 20.5 % (11.5-14.5) Platelet Count 255 x10^3/uL (140-400) Neutrophils (%) (Auto) 76 % (31-73) Lymphocytes (%) (Auto) 11 % (24-48) Monocytes (%) (Auto) 8 % (0-9) Eosinophils (%) (Auto) 4 % (0-3) Basophils (%) (Auto) 1 % (0-3) Neutrophils # (Auto) 8.1 x10^3uL (1.8-7.7) Lymphocytes # (Auto) 1.2 x10^3/uL (1.0-4.8) Monocytes # (Auto) 0.9 x10^3/uL (0.0-1.1) Eosinophils # (Auto) 0.4 x10^3/uL (0.0-0.7) Basophils # (Auto) 0.1 x10^3/uL (0.0-0.2) Prothrombin Time 15.0 SEC (11.7-14.0) Prothromb Time International Ratio 1.2 (0.8-1.1) Sodium Level 140 mmol/L (136-145) Potassium Level 3.6 mmol/L (3.5-5.1) Chloride Level 106 mmol/L (98-107) Carbon Dioxide Level 30 mmol/L (21-32) Anion Gap 4 (6-14) Blood Urea Nitrogen 49 mg/dL (7-20) Creatinine 1.4 mg/dL (0.6-1.0) Estimated GFR (Cockcroft-Gault) 37.1 Glucose Level 196 mg/dL (70-99) Calcium Level 8.4 mg/dL (8.5-10.1) Magnesium Level 1.7 mg/dL (1.8-2.4) O2 Saturation 97 % (92-99) Arterial Blood pH 7.42 (7.35-7.45) Arterial Blood pCO2 at Patient Temp 42 mmHg (35-46) Arterial Blood pO2 at Patient Temp 92 mmHg (65-108) Arterial Blood HCO3 27 mmol/L (21-28) Arterial Blood Base Excess 2 mmol/L (-3-3) FiO2 40% Test 01/19/19 08:55 Body Fluid pH 7.20 Laboratory Tests Test 01/18/19 17:15 01/19/19 00:21 01/19/19 05:35 01/19/19 08:20 Glucose (Fingerstick) 165 mg/dL (70-99) 188 mg/dL (70-99) White Blood Count 10.7 x10^3/uL (4.0-11.0) Red Blood Count 2.61 x10^6/uL (3.50-5.40) Hemoglobin 7.7 g/dL (12.0-15.5) Hematocrit 24.4 % (36.0-47.0) Mean Corpuscular Volume 93 fL (79-100) Mean Corpuscular Hemoglobin 30 pg (25-35) Mean Corpuscular Hemoglobin Concent 32 g/dL (31-37) Red Cell Distribution Width 20.5 % (11.5-14.5) Platelet Count 255 x10^3/uL (140-400) Neutrophils (%) (Auto) 76 % (31-73) Lymphocytes (%) (Auto) 11 % (24-48) Monocytes (%) (Auto) 8 % (0-9) Eosinophils (%) (Auto) 4 % (0-3) Basophils (%) (Auto) 1 % (0-3) Neutrophils # (Auto) 8.1 x10^3uL (1.8-7.7) Lymphocytes # (Auto) 1.2 x10^3/uL (1.0-4.8) Monocytes # (Auto) 0.9 x10^3/uL (0.0-1.1) Eosinophils # (Auto) 0.4 x10^3/uL (0.0-0.7) Basophils # (Auto) 0.1 x10^3/uL (0.0-0.2) Prothrombin Time 15.0 SEC (11.7-14.0) Prothromb Time International Ratio 1.2 (0.8-1.1) Sodium Level 140 mmol/L (136-145) Potassium Level 3.6 mmol/L (3.5-5.1) Chloride Level 106 mmol/L (98-107) Carbon Dioxide Level 30 mmol/L (21-32) Anion Gap 4 (6-14) Blood Urea Nitrogen 49 mg/dL (7-20) Creatinine 1.4 mg/dL (0.6-1.0) Estimated GFR (Cockcroft-Gault) 37.1 Glucose Level 196 mg/dL (70-99) Calcium Level 8.4 mg/dL (8.5-10.1) Magnesium Level 1.7 mg/dL (1.8-2.4) O2 Saturation 97 % (92-99) Arterial Blood pH 7.42 (7.35-7.45) Arterial Blood pCO2 at Patient Temp 42 mmHg (35-46) Arterial Blood pO2 at Patient Temp 92 mmHg (65-108) Arterial Blood HCO3 27 mmol/L (21-28) Arterial Blood Base Excess 2 mmol/L (-3-3) FiO2 40% Test 01/19/19 08:55 Body Fluid pH 7.20 Microbiology 01/16/19 Blood Culture - Preliminary, Resulted NO GROWTH AFTER 2 DAYS Medications Current Medications Propofol (Diprivan) 200 mg 1X ONCE IV ; Start 01/15/19 at 15:00; Stop 01/15/19 at 15:06; Status DC Midazolam HCl (Versed) 5 mg 1X ONCE IV Last administered on 01/15/19at 15:59; Start 01/15/19 at 15:00; Stop 01/15/19 at 15:01; Status DC Propofol 50 ml @ As Directed STK-MED ONCE IV ; Start 01/15/19 at 15:02; Stop 01/15/19 at 15:03; Status DC Midazolam HCl 100 ml @ 0 mls/hr 1X ONCE IV Last administered on 01/15/19at 15:19; Start 01/15/19 at 15:15; Stop 01/15/19 at 15:16; Status DC Calcium Gluconate (Calcium Gluconate) 1,000 mg 1X ONCE IVP Last administered on 01/15/19at 15:58; Start 01/15/19 at 15:30; Stop 01/15/19 at 15:31; Status DC Norepinephrine Bitartrate 250 ml @ 1.875 mls/ hr CONT PRN IV SEE I/O RECORD Last administered on 01/18/19at 20:32; Start 01/15/19 at 17:00 Piperacillin Sod/ Tazobactam Sod (Zosyn Per Pharmacy) 1 each PRN DAILY PRN MC SEE COMMENTS; Start 01/15/19 at 17:15 Albuterol Sulfate (Ventolin Neb Soln) 2.5 mg PRN Q4HRS PRN NEB SHORTNESS OF BREATH; Start 01/15/19 at 17:15 Midazolam HCl 100 ml @ 5 mls/hr CONT PRN IV SEE I/O RECORD Last administered on 01/19/19at 05:03; Start 01/15/19 at 17:15 Fentanyl Citrate (Fentanyl 2ml Vial) 50 mcg PRN Q2HR PRN IV PAIN Last administered on 01/19/19at 04:14; Start 01/15/19 at 17:15 Piperacillin Sod/ Tazobactam Sod 2.25 gm/Sodium Chloride 50 ml @ 100 mls/hr Q6HRS IV Last administered on 01/19/19at 05:59; Start 01/15/19 at 18:00; Stop 01/19/19 at 11:25; Status DC Albuterol Sulfate (Ventolin Neb Soln) 2.5 mg RTBID NEB Last administered on 01/19/19at 08:22; Start 01/15/19 at 20:00 Amiodarone HCl (Cordarone) 200 mg DAILY PO Last administered on 01/19/19at 10:34; Start 01/16/19 at 09:00 Aspirin (Dieudonne Aspirin) 325 mg DAILY PO Last administered on 01/19/19 10:33; Start 01/16/19 at 09:00 Atorvastatin Calcium (Lipitor) 10 mg HS PO Last administered on 01/18/19at 20:30; Start 01/15/19 at 21:00 Carvedilol (Coreg) 3.125 mg BIDWMEALS PO ; Start 01/15/19 at 18:30; Stop 01/18/19 at 14:39; Status DC Docusate Sodium (Colace) 100 mg PRN DAILY PRN PO hard stools; Start 01/15/19 at 17:15 Furosemide (Lasix) 40 mg BID94 PO ; Start 01/16/19 at 09:00; Stop 01/16/19 at 10:50; Status DC Mirtazapine (Remeron) 7.5 mg DAILY PO ; Start 01/16/19 at 09:00; Stop 01/16/19 at 09:00; Status DC Tramadol HCl (Ultram) 25 mg PRN Q6HRS PRN PO MODERATE PAIN; Start 01/15/19 at 17:15 Acetaminophen (Tylenol) 650 mg PRN Q4HRS PRN PO FEVER Last administered on 01/15/19at 20:57; Start 01/15/19 at 17:15; Stop 01/16/19 at 08:07; Status DC Ascorbic Acid (Vitamin C) 500 mg DAILY PO Last administered on 01/19/19at 10:34; Start 01/16/19 at 09:00 Magnesium Hydroxide (Milk Of Magnesia) 2,400 mg PRN DAILY PRN PO CONSTIPATION; Start 01/15/19 at 18:45 Ondansetron HCl (Zofran Odt) 4 mg PRN Q6HRS PRN PO NAUSEA/VOMITING; Start 01/15/19 at 18:45 Pantoprazole Sodium (Protonix) 40 mg DAILYAC PO Last administered on 01/18/19at 07:52; Start 01/16/19 at 07:30; Stop 01/18/19 at 08:02; Status DC Quetiapine Fumarate (SEROquel) 12.5 mg PRN Q6HRS PRN PO AGITATION; Start 01/15/19 at 17:15 Quetiapine Fumarate (SEROquel) 25 mg QHS PO Last administered on 01/17/19at 21:08; Start 01/15/19 at 21:00; Stop 01/18/19 at 14:39; Status DC Thiamine Mononitrate (Vitamin B-1) 100 mg DAILY PO Last administered on 01/19/19at 10:33; Start 01/16/19 at 09:00 Vancomycin HCl (Vanco Per Pharmacy) 1 each PRN DAILY PRN MC SEE COMMENTS Last administered on 01/15/19at 21:10; Start 01/15/19 at 17:45; Stop 01/16/19 at 08:06; Status DC Piperacillin Sod/ Tazobactam Sod (Zosyn Per Pharmacy) 1 each PRN DAILY PRN MC SEE COMMENTS; Start 01/15/19 at 17:45; Status UNV Insulin Human Lispro (HumaLOG) 0-5 UNITS TIDWMEALS SQ ; Start 01/16/19 at 08:00; Stop 01/16/19 at 08:00; Status DC Dextrose (Dextrose 50%-Water Syringe) 12.5 gm PRN Q15MIN PRN IV SEE COMMENTS; Start 01/15/19 at 17:45 Vancomycin HCl 2 gm/Sodium Chloride 500 ml @ 250 mls/hr 1X ONCE IV Last administered on 01/15/19at 20:56; Start 01/15/19 at 20:00; Stop 01/15/19 at 21:59; Status DC Insulin Human Lispro (HumaLOG) 0-5 UNITS Q6HRS SQ Last administered on 01/18/19at 17:49; Start 01/16/19 at 00:00 Vancomycin HCl 1.25 gm/Sodium Chloride 250 ml @ 167 mls/hr Q24H IV ; Start 01/16/19 at 21:00; Stop 01/16/19 at 21:00; Status DC Vancomycin HCl (Vancomycin Trough Level) 1 each 1X ONCE MC ; Start 01/17/19 at 20:30; Stop 01/17/19 at 20:31; Status Cancel Mirtazapine (Remeron) 7.5 mg QHS PO Last administered on 01/18/19at 20:30; Start 01/16/19 at 21:00 Linezolid/Dextrose 300 ml @ 300 mls/hr Q12HR IV Last administered on 01/19/19at 10:35; Start 01/16/19 at 09:00 Acetaminophen (Tylenol) 650 mg PRN Q4HRS PRN PEG MILD PAIN / TEMP Last administered on 01/16/19at 08:09; Start 01/16/19 at 08:15 Famotidine (Pepcid) 20 mg QHS PO Last administered on 01/17/19at 21:08; Start 01/16/19 at 21:00; Stop 01/18/19 at 13:06; Status DC Heparin Sodium (Porcine) (Heparin Sodium) 5,000 unit Q12HR SQ Last administered on 01/18/19at 13:18; Start 01/16/19 at 21:00; Status Future Hold Sodium Chloride 500 ml @ 250 mls/hr Q1HR PRN IV HYPOTENTION; Start 01/17/19 at 19:15 Pantoprazole Sodium (PROTONIX VIAL for IV PUSH) 40 mg DAILYAC IVP Last administered on 01/19/19at 06:27; Start 01/19/19 at 07:30 Piperacillin Sod/ Tazobactam Sod 3.375 gm/Sodium Chloride 50 ml @ 100 mls/hr Q6HRS IV ; Start 01/19/19 at 12:00 Active Scripts Active Reported Vitamin C (Ascorbate Calcium) 500 Mg Tablet 500 Mg PO DAILY Aspirin 325 Mg Tablet 1 Tab PO DAILY Coreg (Carvedilol) 3.125 Mg Tablet 3.125 Mg PO BIDWMEALS Zofran (Ondansetron Hcl) 4 Mg Tablet 4 Mg PO PRN Q6HRS PRN B-1 (Thiamine HCl) 100 Mg Tablet 100 Mg PO DAILY Docusate Sodium 100 Mg Capsule 100 Mg PO PRN PRN Acetaminophen 160 Mg/5 Ml Oral.susp 650 Mg PO PRN Q4HRS PRN Milk Of Magnesia (Magnesium Hydroxide) 2,400 Mg/10 Ml Oral.susp 2,400 Mg PO PRN PRN Mirtazapine 7.5 Mg Tablet 7.5 Mg PO QHS Albuterol Sulfate Neb Soln (Albuterol Sulfate) 2.5 Mg/3 Ml Vial.neb 2.5 Mg NEB BID Atorvastatin Calcium 10 Mg Tablet 10 Mg PO HS Lasix (Furosemide) 40 Mg Tablet 40 Mg PO BID Protonix (Pantoprazole Sodium) 20 Mg Tablet.dr 40 Mg PO DAILY Amiodarone Hcl 200 Mg Tablet 1 Tab PO DAILY Seroquel (Quetiapine Fumarate) 25 Mg Tablet 25 Mg PO HS Tramadol Hcl 50 Mg Tablet 25 Mg PO Q6HRS PRN Seroquel (Quetiapine Fumarate) 25 Mg Tablet 12.5 Mg PO PRN Q6HRS PRN Vitals/I & O Vital Sign - Last 24 Hours 01/18/19 01/18/19 01/18/19 01/18/19 12:30 13:17 13:31 13:34 Temp 98.9 98.9 Pulse 101 86 Resp 19 14 B/P (MAP) 85/52 (63) 97/50 (66) Pulse Ox 100 100 100 O2 Delivery Ventilator Ventilator Ventilator 01/18/19 01/18/19 01/18/19 01/18/19 14:00 15:00 15:45 16:00 Pulse 82 82 Resp 16 16 B/P (MAP) 91/49 (63) 100/54 (69) Pulse Ox 100 100 O2 Delivery Ventilator Ventilator Ventilator Mechanical Ventilator 01/18/19 01/18/19 01/18/19 01/18/19 16:00 16:47 17:00 17:41 Temp 99.1 99.1 Pulse 84 77 Resp 16 18 16 B/P (MAP) 93/54 (67) 93/45 (61) Pulse Ox 100 100 100 100 O2 Delivery Ventilator Ventilator Ventilator Ventilator 01/18/19 01/18/19 01/18/19 01/18/19 18:00 19:00 19:30 19:50 Pulse 73 90 92 Resp 16 16 16 B/P (MAP) 102/45 (64) 94/53 (67) 99/53 (68) Pulse Ox 100 100 100 100 O2 Delivery Ventilator Ventilator Ventilator Ventilator 01/18/19 01/18/19 01/18/19 01/18/19 20:00 20:00 20:30 20:54 Temp 98.4 98.4 Pulse 94 80 Resp 16 16 16 B/P (MAP) 105/55 (72) 98/42 (60) Pulse Ox 100 100 100 O2 Delivery Mechanical Ventilator Ventilator Ventilator Ventilator 01/18/19 01/18/19 01/18/19 01/18/19 21:00 21:07 21:30 22:00 Pulse 76 78 90 Resp 16 16 16 B/P (MAP) 104/51 (68) 111/57 (75) 106/55 (72) Pulse Ox 100 100 100 100 O2 Delivery Ventilator Ventilator Ventilator Ventilator 01/18/19 01/18/19 01/18/19 01/18/19 22:30 23:00 23:17 23:30 Pulse 86 82 88 Resp 16 16 16 B/P (MAP) 100/53 (69) 113/54 (73) 111/60 (77) Pulse Ox 100 100 100 100 O2 Delivery Ventilator Ventilator Ventilator Ventilator 01/19/19 01/19/19 01/19/19 01/19/19 00:00 00:00 00:30 01:00 Temp 98.6 98.6 Pulse 92 86 82 Resp 16 16 16 B/P (MAP) 98/53 (68) 100/51 (67) 98/53 (68) Pulse Ox 100 100 100 O2 Delivery Ventilator Mechanical Ventilator Ventilator Ventilator 01/19/19 01/19/19 01/19/19 01/19/19 01:08 01:30 02:08 02:12 Pulse 84 90 Resp 16 18 16 B/P (MAP) 92/64 (73) 96/44 (61) Pulse Ox 100 100 100 100 O2 Delivery Ventilator Ventilator Ventilator Ventilator 01/19/19 01/19/19 01/19/19 01/19/19 02:30 03:00 03:20 03:30 Pulse 98 80 90 Resp 16 16 16 B/P (MAP) 112/62 (79) 113/58 (76) 110/60 (77) Pulse Ox 100 100 100 100 O2 Delivery Ventilator Ventilator Ventilator Ventilator 01/19/19 01/19/19 01/19/19 01/19/19 04:00 04:00 04:14 04:30 Temp 99.0 99.0 Pulse 96 84 Resp 16 20 16 B/P (MAP) 112/61 (78) 106/50 (68) Pulse Ox 100 100 100 O2 Delivery Ventilator Mechanical Ventilator Ventilator Ventilator 5/2/19 01/19/19 01/19/19 01/19/19 04:45 05:00 05:30 06:30 Pulse 80 84 84 Resp 16 16 16 16 B/P (MAP) 119/74 (89) 120/56 (77) 107/52 (70) Pulse Ox 100 100 100 100 O2 Delivery Ventilator Ventilator Ventilator Ventilator 01/19/19 01/19/19 01/19/19 01/19/19 07:00 08:00 08:00 08:07 Temp 98.8 98.8 Pulse 80 82 Resp 16 16 B/P (MAP) 108/59 (75) 92/43 (59) Pulse Ox 100 100 100 O2 Delivery Ventilator Ventilator Mechanical Ventilator Ventilator 01/19/19 01/19/19 01/19/19 01/19/19 09:00 10:00 10:34 11:00 Pulse 82 92 95 94 Resp 16 16 18 B/P (MAP) 123/60 (81) 103/53 (70) 103/53 100/55 (70) Pulse Ox 100 100 100 O2 Delivery Ventilator Ventilator Ventilator 01/19/19 01/19/19 01/19/19 11:07 12:00 12:00 Temp 99.3 99.3 Pulse 100 Resp 18 B/P (MAP) 122/60 (80) Pulse Ox 100 100 O2 Delivery Ventilator Mechanical Ventilator Ventilator Intake and Output 01/18/19 01/18/19 01/19/19 14:59 22:59 06:59 Intake Total 845 ml 1152 ml 689 ml Output Total 515 ml 450 ml 390 ml Balance 330 ml 702 ml 299 ml CHRISTINA CHAVARRIA MD January 19, 2019 12:27
[2019-01-19] MEDS ORDERED: MAGNESIUM SULFATE 2GM 50 ML IV ONE (12:30)
--- NOTE | 2019-01-19 21:00 | NUR ---
Patient's HR now 120 with rest; tele 100% V-paced, called Dr Duke, notified of HR, Tele, Levo and Dobutamine doses. Order received if HR is consistently greater 120's, give Digoxin 0.25MG IVP x1. See orders.
[2019-01-19] MEDS: ATORVASTATIN CALCIUM 10 MG TABLET. PO SCH (21:52)
[2019-01-19] MEDS: MIRTAZAPINE 7.5 MG TABLET. PO SCH (21:52)
[2019-01-20] VITALS (25 sets, daily range): BP systolic 81–125; BP diastolic 44–71
[2019-01-20] MEDS: PIPERACILLIN/TAZOBACTAM 3.375 GM in IV NORMAL SALINE 50ML 50 ML IV SCH ×4 (00:17→18:16)
[2019-01-20] MEDS: INSULIN LISPRO 300 UNITS/3 ML INSULN.PEN. SQ SCH ×4 (00:29→18:00)
[2019-01-20] MEDS: HEPARIN for SUB-Q USE 5,000 UNIT/ML VIAL. SQ SCH ×3 (01:54→21:17)
[2019-01-20] MEDS: NOREPINEPHRIN 8MG/250ML PREMIX 250 ML IV PRN (04:15)
[2019-01-20 06:26] LABS: BASO # 0.1 x10^3/uL (0.0-0.2); BASO % 1 % (0-3); EOS # 0.2 x10^3/uL (0.0-0.7); EOS % 2 % (0-3); HEMATOCRIT 25.5 % (36.0-47.0); HEMOGLOBIN 8.3 g/dL (12.0-15.5); LYMPH # 0.9 x10^3/uL (1.0-4.8); LYMPH % 12 % (24-48); MEAN CORPUSCULAR HEMOGLOBIN 31 pg (25-35); MEAN CORPUSCULAR HGB CONC 33 g/dL (31-37); MEAN CORPUSCULAR VOLUME 94 fL (79-100); MONO # 0.6 x10^3/uL (0.0-1.1); MONO % 8 % (0-9); NEUT # 5.6 x10^3uL (1.8-7.7); NEUT % 77 % (31-73); PLATELET COUNT 169 x10^3/uL (140-400); RED BLOOD COUNT 2.72 x10^6/uL (3.50-5.40); RED CELL DISTRIBUTION WIDTH 19.9 % (11.5-14.5); WHITE BLOOD COUNT 7.3 x10^3/uL (4.0-11.0)
[2019-01-20 06:29] LABS: CREATININE 1.4 mg/dL (0.6-1.0); GFR 37.1; MAGNESIUM 2.1 mg/dL (1.8-2.4); POTASSIUM 3.4 mmol/L (3.5-5.1)
[2019-01-20] MEDS: ALBUTEROL SULFATE 2.5 MG/3 ML NEBU. NEB SCH ×2 (07:44→19:46)
--- NOTE | 2019-01-20 07:44 | RAD ---
Portable chest, 01/20/2019: HISTORY: Respiratory failure Comparison is made to yesterday's study. The ET tube tip lies well above the isaiah. A left PICC extends to the level the atrial caval junction. A Dobbhoff tube extends into the stomach. The patient is rotated to the right. The heart size appears unchanged. There are mild residual pulmonary infiltrates with fissural and pleural thickening compatible with a small amount of residual pleural fluid. There is no evidence of pneumothorax. No new abnormality is seen. IMPRESSION: No significant change since yesterday's exam. Electronically signed by: Robin Howard MD (01/20/2019 7:41 AM) [facility]
--- NOTE | 2019-01-20 08:25 | PDOC ---
Infectious Disease Note Subjective Subjective on vent , awake ROS ROS no n/v/d/sob Vital Sign Vital Signs Vital Signs Date Time Temp Pulse Resp B/P (MAP) Pulse Ox O2 Delivery O2 Flow Rate FiO2 01/20/19 07:44 99 Ventilator 01/20/19 07:00 98.4 90 18 125/53 (77) 98.4 Physical Exam PHYSICAL EXAM GENERAL: Sedated, orally intubated female, not in any distress. VITAL SIGNS: She is on vasopressor support. HEENT: NAD. Both pupils are round and reacting, orally intubated. NECK: Supple, no JVP, no lymphadenopathy. LUNGS: Decreased breath sounds. HEART: S1, S2 regular. No gallop or murmur. ABDOMEN: Soft, nontender. EXTREMITIES: No edema or cyanosis. SKIN: Unremarkable other than multiple areas of bruising as well as sacrococcygeal area of stage 3 decubitus. NEUROLOGIC: The patient was moving all extremities before sedation and intubation. Labs Lab Laboratory Tests Test 01/19/19 08:55 01/19/19 12:22 01/19/19 17:38 01/20/19 00:14 Body Fluid pH 7.20 Body Fluid Total Protein 3.3 g/dL (.) Body Fluid Lactate Dehydrogenase 376 IU/L (.) Glucose (Fingerstick) 201 mg/dL (70-99) 149 mg/dL (70-99) 151 mg/dL (70-99) Test 01/20/19 06:00 01/20/19 06:05 White Blood Count 7.3 x10^3/uL (4.0-11.0) Red Blood Count 2.72 x10^6/uL (3.50-5.40) Hemoglobin 8.3 g/dL (12.0-15.5) Hematocrit 25.5 % (36.0-47.0) Mean Corpuscular Volume 94 fL (79-100) Mean Corpuscular Hemoglobin 31 pg (25-35) Mean Corpuscular Hemoglobin Concent 33 g/dL (31-37) Red Cell Distribution Width 19.9 % (11.5-14.5) Platelet Count 169 x10^3/uL (140-400) Neutrophils (%) (Auto) 77 % (31-73) Lymphocytes (%) (Auto) 12 % (24-48) Monocytes (%) (Auto) 8 % (0-9) Eosinophils (%) (Auto) 2 % (0-3) Basophils (%) (Auto) 1 % (0-3) Neutrophils # (Auto) 5.6 x10^3uL (1.8-7.7) Lymphocytes # (Auto) 0.9 x10^3/uL (1.0-4.8) Monocytes # (Auto) 0.6 x10^3/uL (0.0-1.1) Eosinophils # (Auto) 0.2 x10^3/uL (0.0-0.7) Basophils # (Auto) 0.1 x10^3/uL (0.0-0.2) Sodium Level 141 mmol/L (136-145) Potassium Level 3.4 mmol/L (3.5-5.1) Chloride Level 105 mmol/L (98-107) Carbon Dioxide Level 29 mmol/L (21-32) Anion Gap 7 (6-14) Blood Urea Nitrogen 42 mg/dL (7-20) Creatinine 1.4 mg/dL (0.6-1.0) Estimated GFR (Cockcroft-Gault) 37.1 Glucose Level 186 mg/dL (70-99) Calcium Level 8.0 mg/dL (8.5-10.1) Magnesium Level 2.1 mg/dL (1.8-2.4) Glucose (Fingerstick) 164 mg/dL (70-99) Micro Microbiology 01/16/19 Blood Culture - Preliminary, Resulted NO GROWTH AFTER 1 DAY Objective Assessment Fever Respiratory failure Circulatory failure CHF/Cardiomyopathy DM A fib Stage 3 , sacral ulcer Plan Plan of Care cont zosyn and d/c zyvox check cultures supportive care CT noted d/w MICHELINE NETTLES MD January 20, 2019 08:25
[2019-01-20 08:45] LABS: BASE EXCESS ABG 2 mmol/L (-3-3); HCO3 ABG 27 mmol/L (21-28); PCO2 ABG 43 mmHg (35-46); PO2 ABG 123 mmHg (65-108); SAT O2 ABG 98 % (92-99)
[2019-01-20 08:58] LABS: FIO2 ABG 40
--- NOTE | 2019-01-20 09:29 | PDOC ---
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 OBJECTIVE Vital Signs Vital Signs Date Time Temp Pulse Resp B/P (MAP) Pulse Ox O2 Delivery O2 Flow Rate FiO2 01/20/19 08:34 101/52 (68) 01/20/19 08:00 94 20 100 Ventilator 01/20/19 07:00 98.4 98.4 I & 0 Intake and Output 01/20/19 07:00 Intake Total 3370.59 ml Output Total 1625 ml Balance 1745.59 ml IV Total 1198.59 ml Tube Feeding 2072 ml Other 100 ml Output Urine Total 1325 ml Gastric Drainage Total 300 ml PHYSICAL EXAM Physical Exam GEN: Extubated HEEN: On O2 by NC NECK: Supple CVS: RRR RESP: CTA ant GI: Soft , NT : Kahn + Ext- No LE edema NEuro- Grossly normal Skin No rash DIAGNOSIS/ASSESSMENT Assessment & Plan NICKIE - Etiology- Cardio -Renal, Post cardiac arrest Baseline Cr at [facility].9 Renal function Improved and stable, not at baseline E-Lytes and acid base stable Strict I/O, daily weights , Anticipate fluctuations in renal function 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 Intralobular septal thickening and patchy groundglass opacities are seen consistent with edema. cardiology following Elevated LFT's DM- as per primary A fib - On Amiodarone As per cardiology Sacral ulcer Anemia- Hgb stable Bilateral Pl effusion - Large left pleural effusion, moderate right pleural effusion with underlying atelectasis. Underlying infiltrates are not excluded s/p Thoracentesis 2 - 1.2 lts removed , Pulm following Continue supportive care Has significant CMP and her Functional status is poor Discussed with Daughter at bedside and RN COMMENT/RELEVANT DATA Meds Current Medications Medications (Trade) Dose Ordered Sig/Destiny Start Time Stop Time Status Last Admin Dose Admin Acetaminophen (Tylenol) 650 mg PRN Q4HRS PRN 01/16/19 08:15 01/16/19 08:09 650 MG Albuterol Sulfate (Ventolin Neb Soln) 2.5 mg RTBID 01/15/19 20:00 01/20/19 07:44 2.5 MG Amiodarone HCl (Cordarone) 200 mg DAILY 01/16/19 09:00 01/19/19 10:34 200 MG Ascorbic Acid (Vitamin C) 500 mg DAILY 01/16/19 09:00 01/19/19 10:34 500 MG Aspirin (Dieudonne Aspirin) 325 mg DAILY 01/16/19 09:00 01/19/19 10:33 325 MG Atorvastatin Calcium (Lipitor) 10 mg HS 01/15/19 21:00 01/19/19 21:52 10 MG Calcium Gluconate (Calcium Gluconate) 1,000 mg 1X ONCE 01/15/19 15:30 01/15/19 15:31 DC 01/15/19 15:58 1,000 MG Carvedilol (Coreg) 3.125 mg BIDWMEALS 01/15/19 18:30 01/18/19 14:39 DC Dextrose (Dextrose 50%-Water Syringe) 12.5 gm PRN Q15MIN PRN 01/15/19 17:45 Dobutamine HCl/ Dextrose 250 ml @ 6.302 mls/ hr CONT PRN 01/19/19 16:00 01/19/19 16:28 6.302 MLS/HR Docusate Sodium (Colace) 100 mg PRN DAILY PRN 01/15/19 17:15 Famotidine (Pepcid) 20 mg QHS 01/16/19 21:00 01/18/19 13:06 DC 01/17/19 21:08 20 MG Fentanyl Citrate (Fentanyl 2ml Vial) 50 mcg PRN Q2HR PRN 01/15/19 17:15 01/19/19 20:40 50 MCG Furosemide (Lasix) 40 mg [id number] 01/16/19 09:00 01/16/19 10:50 DC Heparin Sodium (Porcine) (Heparin Sodium) 5,000 unit Q12HR 01/20/19 01:45 01/20/19 01:54 5,000 UNIT Insulin Human Lispro (HumaLOG) 0-5 UNITS Q6HRS 01/16/19 00:00 01/20/19 06:08 2 UNITS Linezolid/Dextrose 300 ml @ 300 mls/hr Q12HR 01/16/19 09:00 01/20/19 08:26 DC 01/19/19 21:52 300 MLS/HR Magnesium Hydroxide (Milk Of Magnesia) 2,400 mg PRN DAILY PRN 01/15/19 18:45 Magnesium Sulfate 50 ml @ 25 mls/hr 1X ONCE 01/19/19 12:30 01/19/19 14:29 DC 01/19/19 15:04 25 MLS/HR Midazolam HCl 100 ml @ 5 mls/hr CONT PRN 01/15/19 17:15 01/19/19 05:03 8 MLS/HR Midazolam HCl (Versed) 5 mg 1X ONCE 01/15/19 15:00 01/15/19 15:01 DC 01/15/19 15:59 5 MG Mirtazapine (Remeron) 7.5 mg QHS 01/16/19 21:00 01/19/19 21:52 7.5 MG Norepinephrine Bitartrate 250 ml @ 1.875 mls/ hr CONT PRN 01/15/19 17:00 01/20/19 04:15 13.125 MLS/HR Ondansetron HCl (Zofran Odt) 4 mg PRN Q6HRS PRN 01/15/19 18:45 Pantoprazole Sodium (PROTONIX VIAL for IV PUSH) 40 mg DAILYAC 01/19/19 07:30 01/19/19 06:27 40 MG Pantoprazole Sodium (Protonix) 40 mg DAILYAC 01/16/19 07:30 01/18/19 08:02 DC 01/18/19 07:52 40 MG Piperacillin Sod/ Tazobactam Sod (Zosyn Per Pharmacy) 1 each PRN DAILY PRN 01/15/19 17:45 UNV Piperacillin Sod/ Tazobactam Sod 2.25 gm/Sodium Chloride 50 ml @ 100 mls/hr Q6HRS 01/15/19 18:00 01/19/19 11:25 DC 01/19/19 05:59 100 MLS/HR Piperacillin Sod/ Tazobactam Sod 3.375 gm/Sodium Chloride 50 ml @ 100 mls/hr Q6HRS 01/19/19 12:00 01/20/19 06:07 100 MLS/HR Propofol 50 ml @ As Directed STK-MED ONCE 01/15/19 15:02 01/15/19 15:03 DC Propofol (Diprivan) 200 mg 1X ONCE 01/15/19 15:00 01/15/19 15:06 DC Quetiapine Fumarate (SEROquel) 25 mg QHS 01/15/19 21:00 01/18/19 14:39 DC 01/17/19 21:08 25 MG Sodium Chloride 500 ml @ 250 mls/hr Q1HR PRN 01/17/19 19:15 Thiamine Mononitrate (Vitamin B-1) 100 mg DAILY 01/16/19 09:00 01/19/19 10:33 100 MG Tramadol HCl (Ultram) 25 mg PRN Q6HRS PRN 01/15/19 17:15 Vancomycin HCl (Vanco Per Pharmacy) 1 each PRN DAILY PRN 01/15/19 17:45 01/16/19 08:06 DC 01/15/19 21:10 1 EACH Vancomycin HCl (Vancomycin Trough Level) 1 each 1X ONCE 01/17/19 20:30 01/17/19 20:31 Cancel Vancomycin HCl 1.25 gm/Sodium Chloride 250 ml @ 167 mls/hr Q24H 01/16/19 21:00 01/16/19 21:00 DC Vancomycin HCl 2 gm/Sodium Chloride 500 ml @ 250 mls/hr 1X ONCE 01/15/19 20:00 01/15/19 21:59 DC 01/15/19 20:56 250 MLS/HR Lab Laboratory Tests Test 01/19/19 12:22 01/19/19 17:38 01/20/19 00:14 01/20/19 06:00 Glucose (Fingerstick) 201 mg/dL (70-99) 149 mg/dL (70-99) 151 mg/dL (70-99) White Blood Count 7.3 x10^3/uL (4.0-11.0) Red Blood Count 2.72 x10^6/uL (3.50-5.40) Hemoglobin 8.3 g/dL (12.0-15.5) Hematocrit 25.5 % (36.0-47.0) Mean Corpuscular Volume 94 fL (79-100) Mean Corpuscular Hemoglobin 31 pg (25-35) Mean Corpuscular Hemoglobin Concent 33 g/dL (31-37) Red Cell Distribution Width 19.9 % (11.5-14.5) Platelet Count 169 x10^3/uL (140-400) Neutrophils (%) (Auto) 77 % (31-73) Lymphocytes (%) (Auto) 12 % (24-48) Monocytes (%) (Auto) 8 % (0-9) Eosinophils (%) (Auto) 2 % (0-3) Basophils (%) (Auto) 1 % (0-3) Neutrophils # (Auto) 5.6 x10^3uL (1.8-7.7) Lymphocytes # (Auto) 0.9 x10^3/uL (1.0-4.8) Monocytes # (Auto) 0.6 x10^3/uL (0.0-1.1) Eosinophils # (Auto) 0.2 x10^3/uL (0.0-0.7) Basophils # (Auto) 0.1 x10^3/uL (0.0-0.2) Sodium Level 141 mmol/L (136-145) Potassium Level 3.4 mmol/L (3.5-5.1) Chloride Level 105 mmol/L (98-107) Carbon Dioxide Level 29 mmol/L (21-32) Anion Gap 7 (6-14) Blood Urea Nitrogen 42 mg/dL (7-20) Creatinine 1.4 mg/dL (0.6-1.0) Estimated GFR (Cockcroft-Gault) 37.1 Glucose Level 186 mg/dL (70-99) Calcium Level 8.0 mg/dL (8.5-10.1) Magnesium Level 2.1 mg/dL (1.8-2.4) Test 01/20/19 06:05 01/20/19 08:40 Glucose (Fingerstick) 164 mg/dL (70-99) O2 Saturation 98 % (92-99) Arterial Blood pH 7.42 (7.35-7.45) Arterial Blood pCO2 at Patient Temp 43 mmHg (35-46) Arterial Blood pO2 at Patient Temp 123 mmHg (65-108) Arterial Blood HCO3 27 mmol/L (21-28) Arterial Blood Base Excess 2 mmol/L (-3-3) FiO2 40 Results All relevant outside records, renal labs, imaging studies, telemetry/EKG's were reviewed. ESTEBAN GANDARA MD January 20, 2019 09:29
[2019-01-20] MEDS: PANTOPRAZOLE IV PUSH 40 MG VIAL. IVP SCH (10:41)
[2019-01-20] MEDS: THIAMINE 100 MG TABLET. PO SCH (10:42)
[2019-01-20] MEDS: AMIODARONE HCL 200 MG TABLET. PO SCH (10:42)
[2019-01-20] MEDS: ASCORBIC ACID 500 MG TABLET PO SCH (10:42)
[2019-01-20] MEDS: ASPIRIN 325 MG TABLET PO SCH (10:42)
--- NOTE | 2019-01-20 11:03 | PDOC ---
PULMONARY PROGRESS NOTES Subjective awake, on CPAP trial low dose levo Vitals Vital Signs Date Time Temp Pulse Resp B/P (MAP) Pulse Ox O2 Delivery O2 Flow Rate FiO2 01/20/19 10:42 120 90/48 01/20/19 10:00 26 100 Nasal Cannula 5.0 01/20/19 07:00 98.4 98.4 General: Alert, No acute distress Lungs: Clear Cardiovascular: S1, S2 Abdomen: Soft, Non-tender Extremities: Other (EDEMA) Skin: Warm Labs Laboratory Tests Test 01/18/19 11:49 01/18/19 17:15 01/19/19 00:21 01/19/19 05:35 Glucose (Fingerstick) 183 mg/dL (70-99) 165 mg/dL (70-99) 188 mg/dL (70-99) White Blood Count 10.7 x10^3/uL (4.0-11.0) Red Blood Count 2.61 x10^6/uL (3.50-5.40) Hemoglobin 7.7 g/dL (12.0-15.5) Hematocrit 24.4 % (36.0-47.0) Mean Corpuscular Volume 93 fL (79-100) Mean Corpuscular Hemoglobin 30 pg (25-35) Mean Corpuscular Hemoglobin Concent 32 g/dL (31-37) Red Cell Distribution Width 20.5 % (11.5-14.5) Platelet Count 255 x10^3/uL (140-400) Neutrophils (%) (Auto) 76 % (31-73) Lymphocytes (%) (Auto) 11 % (24-48) Monocytes (%) (Auto) 8 % (0-9) Eosinophils (%) (Auto) 4 % (0-3) Basophils (%) (Auto) 1 % (0-3) Neutrophils # (Auto) 8.1 x10^3uL (1.8-7.7) Lymphocytes # (Auto) 1.2 x10^3/uL (1.0-4.8) Monocytes # (Auto) 0.9 x10^3/uL (0.0-1.1) Eosinophils # (Auto) 0.4 x10^3/uL (0.0-0.7) Basophils # (Auto) 0.1 x10^3/uL (0.0-0.2) Prothrombin Time 15.0 SEC (11.7-14.0) Prothromb Time International Ratio 1.2 (0.8-1.1) Sodium Level 140 mmol/L (136-145) Potassium Level 3.6 mmol/L (3.5-5.1) Chloride Level 106 mmol/L (98-107) Carbon Dioxide Level 30 mmol/L (21-32) Anion Gap 4 (6-14) Blood Urea Nitrogen 49 mg/dL (7-20) Creatinine 1.4 mg/dL (0.6-1.0) Estimated GFR (Cockcroft-Gault) 37.1 Glucose Level 196 mg/dL (70-99) Calcium Level 8.4 mg/dL (8.5-10.1) Magnesium Level 1.7 mg/dL (1.8-2.4) Test 01/19/19 08:20 01/19/19 08:55 01/19/19 12:22 01/19/19 17:38 O2 Saturation 97 % (92-99) Arterial Blood pH 7.42 (7.35-7.45) Arterial Blood pCO2 at Patient Temp 42 mmHg (35-46) Arterial Blood pO2 at Patient Temp 92 mmHg (65-108) Arterial Blood HCO3 27 mmol/L (21-28) Arterial Blood Base Excess 2 mmol/L (-3-3) FiO2 40% Body Fluid pH 7.20 Body Fluid Total Protein 3.3 g/dL (.) Body Fluid Lactate Dehydrogenase 376 IU/L (.) Glucose (Fingerstick) 201 mg/dL (70-99) 149 mg/dL (70-99) Test 01/20/19 00:14 01/20/19 06:00 01/20/19 06:05 01/20/19 08:40 Glucose (Fingerstick) 151 mg/dL (70-99) 164 mg/dL (70-99) White Blood Count 7.3 x10^3/uL (4.0-11.0) Red Blood Count 2.72 x10^6/uL (3.50-5.40) Hemoglobin 8.3 g/dL (12.0-15.5) Hematocrit 25.5 % (36.0-47.0) Mean Corpuscular Volume 94 fL (79-100) Mean Corpuscular Hemoglobin 31 pg (25-35) Mean Corpuscular Hemoglobin Concent 33 g/dL (31-37) Red Cell Distribution Width 19.9 % (11.5-14.5) Platelet Count 169 x10^3/uL (140-400) Neutrophils (%) (Auto) 77 % (31-73) Lymphocytes (%) (Auto) 12 % (24-48) Monocytes (%) (Auto) 8 % (0-9) Eosinophils (%) (Auto) 2 % (0-3) Basophils (%) (Auto) 1 % (0-3) Neutrophils # (Auto) 5.6 x10^3uL (1.8-7.7) Lymphocytes # (Auto) 0.9 x10^3/uL (1.0-4.8) Monocytes # (Auto) 0.6 x10^3/uL (0.0-1.1) Eosinophils # (Auto) 0.2 x10^3/uL (0.0-0.7) Basophils # (Auto) 0.1 x10^3/uL (0.0-0.2) Sodium Level 141 mmol/L (136-145) Potassium Level 3.4 mmol/L (3.5-5.1) Chloride Level 105 mmol/L (98-107) Carbon Dioxide Level 29 mmol/L (21-32) Anion Gap 7 (6-14) Blood Urea Nitrogen 42 mg/dL (7-20) Creatinine 1.4 mg/dL (0.6-1.0) Estimated GFR (Cockcroft-Gault) 37.1 Glucose Level 186 mg/dL (70-99) Calcium Level 8.0 mg/dL (8.5-10.1) Magnesium Level 2.1 mg/dL (1.8-2.4) O2 Saturation 98 % (92-99) Arterial Blood pH 7.42 (7.35-7.45) Arterial Blood pCO2 at Patient Temp 43 mmHg (35-46) Arterial Blood pO2 at Patient Temp 123 mmHg (65-108) Arterial Blood HCO3 27 mmol/L (21-28) Arterial Blood Base Excess 2 mmol/L (-3-3) FiO2 40 Laboratory Tests Test 01/19/19 12:22 01/19/19 17:38 01/20/19 00:14 01/20/19 06:00 Glucose (Fingerstick) 201 mg/dL (70-99) 149 mg/dL (70-99) 151 mg/dL (70-99) White Blood Count 7.3 x10^3/uL (4.0-11.0) Red Blood Count 2.72 x10^6/uL (3.50-5.40) Hemoglobin 8.3 g/dL (12.0-15.5) Hematocrit 25.5 % (36.0-47.0) Mean Corpuscular Volume 94 fL (79-100) Mean Corpuscular Hemoglobin 31 pg (25-35) Mean Corpuscular Hemoglobin Concent 33 g/dL (31-37) Red Cell Distribution Width 19.9 % (11.5-14.5) Platelet Count 169 x10^3/uL (140-400) Neutrophils (%) (Auto) 77 % (31-73) Lymphocytes (%) (Auto) 12 % (24-48) Monocytes (%) (Auto) 8 % (0-9) Eosinophils (%) (Auto) 2 % (0-3) Basophils (%) (Auto) 1 % (0-3) Neutrophils # (Auto) 5.6 x10^3uL (1.8-7.7) Lymphocytes # (Auto) 0.9 x10^3/uL (1.0-4.8) Monocytes # (Auto) 0.6 x10^3/uL (0.0-1.1) Eosinophils # (Auto) 0.2 x10^3/uL (0.0-0.7) Basophils # (Auto) 0.1 x10^3/uL (0.0-0.2) Sodium Level 141 mmol/L (136-145) Potassium Level 3.4 mmol/L (3.5-5.1) Chloride Level 105 mmol/L (98-107) Carbon Dioxide Level 29 mmol/L (21-32) Anion Gap 7 (6-14) Blood Urea Nitrogen 42 mg/dL (7-20) Creatinine 1.4 mg/dL (0.6-1.0) Estimated GFR (Cockcroft-Gault) 37.1 Glucose Level 186 mg/dL (70-99) Calcium Level 8.0 mg/dL (8.5-10.1) Magnesium Level 2.1 mg/dL (1.8-2.4) Test 01/20/19 06:05 01/20/19 08:40 Glucose (Fingerstick) 164 mg/dL (70-99) O2 Saturation 98 % (92-99) Arterial Blood pH 7.42 (7.35-7.45) Arterial Blood pCO2 at Patient Temp 43 mmHg (35-46) Arterial Blood pO2 at Patient Temp 123 mmHg (65-108) Arterial Blood HCO3 27 mmol/L (21-28) Arterial Blood Base Excess 2 mmol/L (-3-3) FiO2 40 Medications Active Scripts Medications Dose Route/Sig Max Daily Dose Days Date Category Vitamin C (Ascorbate Calcium) 500 Mg Tablet 500 Mg PO DAILY 01/15/19 Reported Aspirin 325 Mg Tablet 1 Tab PO DAILY 01/15/19 Reported Coreg (Carvedilol) 3.125 Mg Tablet 3.125 Mg PO BIDWMEALS 01/15/19 Reported Zofran (Ondansetron Hcl) 4 Mg Tablet 4 Mg PO PRN Q6HRS PRN 01/15/19 Reported B-1 (Thiamine HCl) 100 Mg Tablet 100 Mg PO DAILY 01/15/19 Reported Docusate Sodium 100 Mg Capsule 100 Mg PO PRN PRN 01/15/19 Reported Acetaminophen 160 Mg/5 Ml Oral.susp 650 Mg PO PRN Q4HRS PRN 01/15/19 Reported Milk Of Magnesia (Magnesium Hydroxide) 2,400 Mg/10 Ml Oral.susp 2,400 Mg PO PRN PRN 01/15/19 Reported Mirtazapine 7.5 Mg Tablet 7.5 Mg PO QHS 01/15/19 Reported Albuterol Sulfate Neb Soln (Albuterol Sulfate) 2.5 Mg/3 Ml Vial.neb 2.5 Mg NEB BID 01/15/19 Reported Atorvastatin Calcium 10 Mg Tablet 10 Mg PO HS 01/15/19 Reported Lasix (Furosemide) 40 Mg Tablet 40 Mg PO BID 01/15/19 Reported Protonix (Pantoprazole Sodium) 20 Mg Tablet.dr 40 Mg PO DAILY 01/15/19 Reported Amiodarone Hcl 200 Mg Tablet 1 Tab PO DAILY 01/15/19 Reported Seroquel (Quetiapine Fumarate) 25 Mg Tablet 25 Mg PO HS 01/15/19 Reported Tramadol Hcl 50 Mg Tablet 25 Mg PO Q6HRS PRN 01/15/19 Reported Seroquel (Quetiapine Fumarate) 25 Mg Tablet 12.5 Mg PO PRN Q6HRS PRN 01/15/19 Reported Comments CXR 01/20 IMPROVED LEFT EFFUSION/ MILD CHF, NO CHANGE Impression . IMPRESSION: 1. Acute respiratory failure, status post cardiopulmonary arrest, the patient transferred from [facility]. 2. Acute on chronic systolic heart failure. EF 40% 3. Abnormal x-ray compatible with bilateral airspace disease in the lower lobes, ? pneumonia./ LIKELY CHF, left effusion, s/p left tap 01/19 4. Type 2 diabetes. 5. Severe protein malnutrition. 6. Thrombocytopenia. 7. History of pacemaker implantation. 8. Prior history of gastric ulcers. 9. ABNORMAL CXR Plan . DOING WELL ON CPAP TRIAL, AWAKE, WILL PROCEED WITH EXTUBATION ON LOW DOSE LEVO, TRY WEANING TODAY CARDIOLOGY REC WILL CONTINUE SUPPORT DAUGHTER REPORTS MULTIPLE EPISODES OF APNEAS/ NO SLEEP STUDY IN PAST WILL NEED SS OP BIPAP QHS FOR NOW AND PRN MIKHAIL SORENSEN MD January 20, 2019 11:03
--- NOTE | 2019-01-20 12:20 | PDOC ---
CARDIO Progress Notes Date and Time Date of Service 01/20/2019 Time of Evaluation 1150 Subjective Subjective: Other (drowsy, just got extubated) Vitals Vitals Vital Signs Date Time Temp Pulse Resp B/P (MAP) Pulse Ox O2 Delivery O2 Flow Rate FiO2 01/20/19 11:00 119 29 81/62 (68) 100 Nasal Cannula 5.0 01/20/19 07:00 98.4 98.4 Weight Weight [ ] Input and Output Intake and Output Intake and Output 01/20/19 07:00 Intake Total 3370.59 ml Output Total 1625 ml Balance 1745.59 ml IV Total 1198.59 ml Tube Feeding 2072 ml Other 100 ml Output Urine Total 1325 ml Gastric Drainage Total 300 ml Laboratory Labs Laboratory Tests Test 01/19/19 12:22 01/19/19 17:38 01/20/19 00:14 01/20/19 06:00 Glucose (Fingerstick) 201 mg/dL (70-99) 149 mg/dL (70-99) 151 mg/dL (70-99) White Blood Count 7.3 x10^3/uL (4.0-11.0) Red Blood Count 2.72 x10^6/uL (3.50-5.40) Hemoglobin 8.3 g/dL (12.0-15.5) Hematocrit 25.5 % (36.0-47.0) Mean Corpuscular Volume 94 fL (79-100) Mean Corpuscular Hemoglobin 31 pg (25-35) Mean Corpuscular Hemoglobin Concent 33 g/dL (31-37) Red Cell Distribution Width 19.9 % (11.5-14.5) Platelet Count 169 x10^3/uL (140-400) Neutrophils (%) (Auto) 77 % (31-73) Lymphocytes (%) (Auto) 12 % (24-48) Monocytes (%) (Auto) 8 % (0-9) Eosinophils (%) (Auto) 2 % (0-3) Basophils (%) (Auto) 1 % (0-3) Neutrophils # (Auto) 5.6 x10^3uL (1.8-7.7) Lymphocytes # (Auto) 0.9 x10^3/uL (1.0-4.8) Monocytes # (Auto) 0.6 x10^3/uL (0.0-1.1) Eosinophils # (Auto) 0.2 x10^3/uL (0.0-0.7) Basophils # (Auto) 0.1 x10^3/uL (0.0-0.2) Sodium Level 141 mmol/L (136-145) Potassium Level 3.4 mmol/L (3.5-5.1) Chloride Level 105 mmol/L (98-107) Carbon Dioxide Level 29 mmol/L (21-32) Anion Gap 7 (6-14) Blood Urea Nitrogen 42 mg/dL (7-20) Creatinine 1.4 mg/dL (0.6-1.0) Estimated GFR (Cockcroft-Gault) 37.1 Glucose Level 186 mg/dL (70-99) Calcium Level 8.0 mg/dL (8.5-10.1) Magnesium Level 2.1 mg/dL (1.8-2.4) Test 01/20/19 06:05 01/20/19 08:40 Glucose (Fingerstick) 164 mg/dL (70-99) O2 Saturation 98 % (92-99) Arterial Blood pH 7.42 (7.35-7.45) Arterial Blood pCO2 at Patient Temp 43 mmHg (35-46) Arterial Blood pO2 at Patient Temp 123 mmHg (65-108) Arterial Blood HCO3 27 mmol/L (21-28) Arterial Blood Base Excess 2 mmol/L (-3-3) FiO2 40 Microbiology Micro Microbiology 01/16/19 Blood Culture - Preliminary, Resulted NO GROWTH AFTER 3 DAYS 01/16/19 Urine Culture - Final, Complete 01/16/19 Urine Culture Result 1 (BASIA) - Final, Complete Physical Exam HEENT: Neck Supple W Full Motion Chest: Symmetric LUNGS: Other (diminished, bipap in place) Heart: RRR (Paced) Abdomen: Soft N/T Extremities: Other (1-2+ bilateral LE pitting edema) Neurology: other (drowsy) Assessment Assessment 1. S/p cardiopulmonary arrest at [facility] 01/14/19. unclear rhythm, suspect hypoxia induced. Current EF better at 40% 2. Acute and chronic respiratory failure: multifactorial PNA, CHF, pleural effusion. post extubation today 3. Acute on chronic systolic heart failure: better but remains with pleural effusion 4. NICM; LVEF 15-20% now at 40% 5. NICKIE on CKD3; Cr better at 1.4 6. Anemia; hgb 8.3 with hx of PUD 7. Leukocytosis/fever/ ? sepsis: ID following 8. Hypotension; BP improving 8. DM2/HLP 9. s/p lead-less PPM ([employer]). Device check with normal function- device doesn't collect episodes of AT/AF or VT/VF. No significant ectopy on tele 10. PAFIB; maintaining SR LBBB. Previously on Pradaxa, but discontinued due to GI bleed 11. Protein-calorie malnutrition Recommendations 1. Continue dobutamine, weaning off levophed 2. Amiodarone, ASA via dobhoff. Will resume BP meds including BB once off pressors 3. ASA for stroke prevention as patient is poor candidate for OAC given h/o GI bleeding 4. Hold ACEi with NICIKE 5. Follow pulmonary recommendations YURIY BEST APRN January 20, 2019 12:20
--- NOTE | 2019-01-20 14:54 | PDOC ---
PROGRESS NOTES Subjective Subjective seen earlier today. discussed with nurse. daughter in room extubated. on levophed and dopamine drips. sleeping.lab reviewed. Objective Objective Vital Signs Date Time Temp Pulse Resp B/P (MAP) Pulse Ox O2 Delivery O2 Flow Rate FiO2 01/20/19 14:00 91 28 91/47 (62) 94 Nasal Cannula 5.0 01/20/19 12:00 98.3 98.3 Intake and Output 01/20/19 07:00 Intake Total 3370.59 ml Output Total 1625 ml Balance 1745.59 ml IV Total 1198.59 ml Tube Feeding 2072 ml Other 100 ml Output Urine Total 1325 ml Gastric Drainage Total 300 ml Physical Exam Abdomen: Soft Heart: Regular rate, Normal S1, Normal S2 Extremities: Other (1 plus edema feet) General: Other (sleeping) HEENT: Atraumatic Lungs: Other (decreased breath sounds anteriorly) Neuro: Other (sleeping) Psych/Mental Status: Other (sleeping) Skin: No rashes Assessment Assessment Problems1. Cardiopulmonary arrest. 2. Aspiration pneumonia suspected 3. Fever.resolved 4. Leukocytosis.resolved 5. Acute kidney injury most likely secondary to the cardiopulmonary arrest resolved 6. Hypotension still on levophed and dopamine 7. Elevated liver function tests improved 8. Nonischemic cardiomyopathy with improvement of left ventricular ejection fraction 15-20% improved to 40%. 9. Acute on chronic hypoxic and hypercapnic respiratory failure, on the ventilator. 10. Nonischemic cardiomyopathy. 11. Acute on chronic systolic congestive heart failure. 12. Paroxysmal atrial fibrillation, but not a candidate for Pradaxa due to recent gastrointestinal bleed in 06/2018 from gastric ulcer. 13. Oropharyngeal dysphagia. NG tube feeding 14. Diabetes mellitus type 2. 15. Mild coronary artery disease. Medical Problems: (1) Cardiac arrest Status: Acute (2) HCAP (healthcare-associated pneumonia) Status: Acute (3) Liver failure Status: Acute Plan Plan of Care wean off levophed continue dopamine nasogastric tube feeding continue iv zosyn continue heparin sq Comment Review of Relevant I have reviewed the following items kristen (where applicable) has been applied. Labs Laboratory Tests Test 01/18/19 17:15 01/19/19 00:21 01/19/19 05:35 01/19/19 08:20 Glucose (Fingerstick) 165 mg/dL (70-99) 188 mg/dL (70-99) White Blood Count 10.7 x10^3/uL (4.0-11.0) Red Blood Count 2.61 x10^6/uL (3.50-5.40) Hemoglobin 7.7 g/dL (12.0-15.5) Hematocrit 24.4 % (36.0-47.0) Mean Corpuscular Volume 93 fL (79-100) Mean Corpuscular Hemoglobin 30 pg (25-35) Mean Corpuscular Hemoglobin Concent 32 g/dL (31-37) Red Cell Distribution Width 20.5 % (11.5-14.5) Platelet Count 255 x10^3/uL (140-400) Neutrophils (%) (Auto) 76 % (31-73) Lymphocytes (%) (Auto) 11 % (24-48) Monocytes (%) (Auto) 8 % (0-9) Eosinophils (%) (Auto) 4 % (0-3) Basophils (%) (Auto) 1 % (0-3) Neutrophils # (Auto) 8.1 x10^3uL (1.8-7.7) Lymphocytes # (Auto) 1.2 x10^3/uL (1.0-4.8) Monocytes # (Auto) 0.9 x10^3/uL (0.0-1.1) Eosinophils # (Auto) 0.4 x10^3/uL (0.0-0.7) Basophils # (Auto) 0.1 x10^3/uL (0.0-0.2) Prothrombin Time 15.0 SEC (11.7-14.0) Prothromb Time International Ratio 1.2 (0.8-1.1) Sodium Level 140 mmol/L (136-145) Potassium Level 3.6 mmol/L (3.5-5.1) Chloride Level 106 mmol/L (98-107) Carbon Dioxide Level 30 mmol/L (21-32) Anion Gap 4 (6-14) Blood Urea Nitrogen 49 mg/dL (7-20) Creatinine 1.4 mg/dL (0.6-1.0) Estimated GFR (Cockcroft-Gault) 37.1 Glucose Level 196 mg/dL (70-99) Calcium Level 8.4 mg/dL (8.5-10.1) Magnesium Level 1.7 mg/dL (1.8-2.4) O2 Saturation 97 % (92-99) Arterial Blood pH 7.42 (7.35-7.45) Arterial Blood pCO2 at Patient Temp 42 mmHg (35-46) Arterial Blood pO2 at Patient Temp 92 mmHg (65-108) Arterial Blood HCO3 27 mmol/L (21-28) Arterial Blood Base Excess 2 mmol/L (-3-3) FiO2 40% Test 01/19/19 08:55 01/19/19 12:22 01/19/19 17:38 01/20/19 00:14 Body Fluid pH 7.20 Body Fluid Total Protein 3.3 g/dL (.) Body Fluid Lactate Dehydrogenase 376 IU/L (.) Glucose (Fingerstick) 201 mg/dL (70-99) 149 mg/dL (70-99) 151 mg/dL (70-99) Test 01/20/19 06:00 01/20/19 06:05 01/20/19 08:40 01/20/19 12:45 White Blood Count 7.3 x10^3/uL (4.0-11.0) Red Blood Count 2.72 x10^6/uL (3.50-5.40) Hemoglobin 8.3 g/dL (12.0-15.5) Hematocrit 25.5 % (36.0-47.0) Mean Corpuscular Volume 94 fL (79-100) Mean Corpuscular Hemoglobin 31 pg (25-35) Mean Corpuscular Hemoglobin Concent 33 g/dL (31-37) Red Cell Distribution Width 19.9 % (11.5-14.5) Platelet Count 169 x10^3/uL (140-400) Neutrophils (%) (Auto) 77 % (31-73) Lymphocytes (%) (Auto) 12 % (24-48) Monocytes (%) (Auto) 8 % (0-9) Eosinophils (%) (Auto) 2 % (0-3) Basophils (%) (Auto) 1 % (0-3) Neutrophils # (Auto) 5.6 x10^3uL (1.8-7.7) Lymphocytes # (Auto) 0.9 x10^3/uL (1.0-4.8) Monocytes # (Auto) 0.6 x10^3/uL (0.0-1.1) Eosinophils # (Auto) 0.2 x10^3/uL (0.0-0.7) Basophils # (Auto) 0.1 x10^3/uL (0.0-0.2) Sodium Level 141 mmol/L (136-145) Potassium Level 3.4 mmol/L (3.5-5.1) Chloride Level 105 mmol/L (98-107) Carbon Dioxide Level 29 mmol/L (21-32) Anion Gap 7 (6-14) Blood Urea Nitrogen 42 mg/dL (7-20) Creatinine 1.4 mg/dL (0.6-1.0) Estimated GFR (Cockcroft-Gault) 37.1 Glucose Level 186 mg/dL (70-99) Calcium Level 8.0 mg/dL (8.5-10.1) Magnesium Level 2.1 mg/dL (1.8-2.4) Glucose (Fingerstick) 164 mg/dL (70-99) 164 mg/dL (70-99) O2 Saturation 98 % (92-99) Arterial Blood pH 7.42 (7.35-7.45) Arterial Blood pCO2 at Patient Temp 43 mmHg (35-46) Arterial Blood pO2 at Patient Temp 123 mmHg (65-108) Arterial Blood HCO3 27 mmol/L (21-28) Arterial Blood Base Excess 2 mmol/L (-3-3) FiO2 40 Laboratory Tests Test 01/19/19 17:38 01/20/19 00:14 01/20/19 06:00 01/20/19 06:05 Glucose (Fingerstick) 149 mg/dL (70-99) 151 mg/dL (70-99) 164 mg/dL (70-99) White Blood Count 7.3 x10^3/uL (4.0-11.0) Red Blood Count 2.72 x10^6/uL (3.50-5.40) Hemoglobin 8.3 g/dL (12.0-15.5) Hematocrit 25.5 % (36.0-47.0) Mean Corpuscular Volume 94 fL (79-100) Mean Corpuscular Hemoglobin 31 pg (25-35) Mean Corpuscular Hemoglobin Concent 33 g/dL (31-37) Red Cell Distribution Width 19.9 % (11.5-14.5) Platelet Count 169 x10^3/uL (140-400) Neutrophils (%) (Auto) 77 % (31-73) Lymphocytes (%) (Auto) 12 % (24-48) Monocytes (%) (Auto) 8 % (0-9) Eosinophils (%) (Auto) 2 % (0-3) Basophils (%) (Auto) 1 % (0-3) Neutrophils # (Auto) 5.6 x10^3uL (1.8-7.7) Lymphocytes # (Auto) 0.9 x10^3/uL (1.0-4.8) Monocytes # (Auto) 0.6 x10^3/uL (0.0-1.1) Eosinophils # (Auto) 0.2 x10^3/uL (0.0-0.7) Basophils # (Auto) 0.1 x10^3/uL (0.0-0.2) Sodium Level 141 mmol/L (136-145) Potassium Level 3.4 mmol/L (3.5-5.1) Chloride Level 105 mmol/L (98-107) Carbon Dioxide Level 29 mmol/L (21-32) Anion Gap 7 (6-14) Blood Urea Nitrogen 42 mg/dL (7-20) Creatinine 1.4 mg/dL (0.6-1.0) Estimated GFR (Cockcroft-Gault) 37.1 Glucose Level 186 mg/dL (70-99) Calcium Level 8.0 mg/dL (8.5-10.1) Magnesium Level 2.1 mg/dL (1.8-2.4) Test 01/20/19 08:40 01/20/19 12:45 O2 Saturation 98 % (92-99) Arterial Blood pH 7.42 (7.35-7.45) Arterial Blood pCO2 at Patient Temp 43 mmHg (35-46) Arterial Blood pO2 at Patient Temp 123 mmHg (65-108) Arterial Blood HCO3 27 mmol/L (21-28) Arterial Blood Base Excess 2 mmol/L (-3-3) FiO2 40 Glucose (Fingerstick) 164 mg/dL (70-99) Microbiology 01/16/19 Blood Culture - Preliminary, Resulted NO GROWTH AFTER 3 DAYS 01/16/19 Urine Culture - Final, Complete 01/16/19 Urine Culture Result 1 (BASIA) - Final, Complete Medications Current Medications Propofol (Diprivan) 200 mg 1X ONCE IV ; Start 01/15/19 at 15:00; Stop 01/15/19 at 15:06; Status DC Midazolam HCl (Versed) 5 mg 1X ONCE IV Last administered on 01/15/19at 15:59; Start 01/15/19 at 15:00; Stop 01/15/19 at 15:01; Status DC Propofol 50 ml @ As Directed STK-MED ONCE IV ; Start 01/15/19 at 15:02; Stop 01/15/19 at 15:03; Status DC Midazolam HCl 100 ml @ 0 mls/hr 1X ONCE IV Last administered on 01/15/19at 15:19; Start 01/15/19 at 15:15; Stop 01/15/19 at 15:16; Status DC Calcium Gluconate (Calcium Gluconate) 1,000 mg 1X ONCE IVP Last administered on 01/15/19at 15:58; Start 01/15/19 at 15:30; Stop 01/15/19 at 15:31; Status DC Norepinephrine Bitartrate 250 ml @ 1.875 mls/ hr CONT PRN IV SEE I/O RECORD Last administered on 01/20/19at 04:15; Start 01/15/19 at 17:00 Piperacillin Sod/ Tazobactam Sod (Zosyn Per Pharmacy) 1 each PRN DAILY PRN MC SEE COMMENTS; Start 01/15/19 at 17:15 Albuterol Sulfate (Ventolin Neb Soln) 2.5 mg PRN Q4HRS PRN NEB SHORTNESS OF BREATH; Start 01/15/19 at 17:15 Midazolam HCl 100 ml @ 5 mls/hr CONT PRN IV SEE I/O RECORD Last administered on 01/19/19at 05:03; Start 01/15/19 at 17:15; Stop 01/20/19 at 09:46; Status DC Fentanyl Citrate (Fentanyl 2ml Vial) 50 mcg PRN Q2HR PRN IV PAIN Last administered on 01/19/19at 20:40; Start 01/15/19 at 17:15 Piperacillin Sod/ Tazobactam Sod 2.25 gm/Sodium Chloride 50 ml @ 100 mls/hr Q6HRS IV Last administered on 01/19/19at 05:59; Start 01/15/19 at 18:00; Stop 01/19/19 at 11:25; Status DC Albuterol Sulfate (Ventolin Neb Soln) 2.5 mg RTBID NEB Last administered on 01/20/19at 07:44; Start 01/15/19 at 20:00 Amiodarone HCl (Cordarone) 200 mg DAILY PO Last administered on 01/20/19 10:42; Start 01/16/19 at 09:00 Aspirin (Dieudonne Aspirin) 325 mg DAILY PO Last administered on 01/20/19 10:42; Start 01/16/19 at 09:00 Atorvastatin Calcium (Lipitor) 10 mg HS PO Last administered on 01/19/19 21:52; Start 01/15/19 at 21:00 Carvedilol (Coreg) 3.125 mg BIDWMEALS PO ; Start 01/15/19 at 18:30; Stop 01/18/19 at 14:39; Status DC Docusate Sodium (Colace) 100 mg PRN DAILY PRN PO hard stools; Start 01/15/19 at 17:15 Furosemide (Lasix) 40 mg BID94 PO ; Start 01/16/19 at 09:00; Stop 01/16/19 at 10:50; Status DC Mirtazapine (Remeron) 7.5 mg DAILY PO ; Start 01/16/19 at 09:00; Stop 01/16/19 at 09:00; Status DC Tramadol HCl (Ultram) 25 mg PRN Q6HRS PRN PO MODERATE PAIN; Start 01/15/19 at 17:15 Acetaminophen (Tylenol) 650 mg PRN Q4HRS PRN PO FEVER Last administered on 01/15/19at 20:57; Start 01/15/19 at 17:15; Stop 01/16/19 at 08:07; Status DC Ascorbic Acid (Vitamin C) 500 mg DAILY PO Last administered on 01/20/19 10:42; Start 01/16/19 at 09:00 Magnesium Hydroxide (Milk Of Magnesia) 2,400 mg PRN DAILY PRN PO CONSTIPATION; Start 01/15/19 at 18:45 Ondansetron HCl (Zofran Odt) 4 mg PRN Q6HRS PRN PO NAUSEA/VOMITING; Start 01/15/19 at 18:45 Pantoprazole Sodium (Protonix) 40 mg DAILYAC PO Last administered on 01/18/19at 07:52; Start 01/16/19 at 07:30; Stop 01/18/19 at 08:02; Status DC Quetiapine Fumarate (SEROquel) 12.5 mg PRN Q6HRS PRN PO AGITATION; Start 01/15/19 at 17:15 Quetiapine Fumarate (SEROquel) 25 mg QHS PO Last administered on 01/17/19at 21:08; Start 01/15/19 at 21:00; Stop 01/18/19 at 14:39; Status DC Thiamine Mononitrate (Vitamin B-1) 100 mg DAILY PO Last administered on 01/20/19at 10:42; Start 01/16/19 at 09:00 Vancomycin HCl (Vanco Per Pharmacy) 1 each PRN DAILY PRN MC SEE COMMENTS Last administered on 01/15/19at 21:10; Start 01/15/19 at 17:45; Stop 01/16/19 at 08:06; Status DC Piperacillin Sod/ Tazobactam Sod (Zosyn Per Pharmacy) 1 each PRN DAILY PRN MC SEE COMMENTS; Start 01/15/19 at 17:45; Status UNV Insulin Human Lispro (HumaLOG) 0-5 UNITS TIDWMEALS SQ ; Start 01/16/19 at 08:00; Stop 01/16/19 at 08:00; Status DC Dextrose (Dextrose 50%-Water Syringe) 12.5 gm PRN Q15MIN PRN IV SEE COMMENTS; Start 01/15/19 at 17:45 Vancomycin HCl 2 gm/Sodium Chloride 500 ml @ 250 mls/hr 1X ONCE IV Last administered on 01/15/19at 20:56; Start 01/15/19 at 20:00; Stop 01/15/19 at 21:59; Status DC Insulin Human Lispro (HumaLOG) 0-5 UNITS Q6HRS SQ Last administered on 01/20/19at 12:47; Start 01/16/19 at 00:00 Vancomycin HCl 1.25 gm/Sodium Chloride 250 ml @ 167 mls/hr Q24H IV ; Start 01/16/19 at 21:00; Stop 01/16/19 at 21:00; Status DC Vancomycin HCl (Vancomycin Trough Level) 1 each 1X ONCE MC ; Start 01/17/19 at 20:30; Stop 01/17/19 at 20:31; Status Cancel Mirtazapine (Remeron) 7.5 mg QHS PO Last administered on 01/19/19 21:52; Start 01/16/19 at 21:00 Linezolid/Dextrose 300 ml @ 300 mls/hr Q12HR IV Last administered on 01/19/19 21:52; Start 01/16/19 at 09:00; Stop 01/20/19 at 08:26; Status DC Acetaminophen (Tylenol) 650 mg PRN Q4HRS PRN PEG MILD PAIN / TEMP Last administered on 01/16/19 08:09; Start 01/16/19 at 08:15 Famotidine (Pepcid) 20 mg QHS PO Last administered on 01/17/19 21:08; Start 01/16/19 at 21:00; Stop 01/18/19 at 13:06; Status DC Heparin Sodium (Porcine) (Heparin Sodium) 5,000 unit Q12HR SQ Last administered on 01/18/19 13:18; Start 01/16/19 at 21:00; Stop 01/19/19 at 20:15; Status DC Sodium Chloride 500 ml @ 250 mls/hr Q1HR PRN IV HYPOTENTION; Start 01/17/19 at 19:15 Pantoprazole Sodium (PROTONIX VIAL for IV PUSH) 40 mg DAILYAC IVP Last administered on 01/20/19 10:41; Start 01/19/19 at 07:30 Piperacillin Sod/ Tazobactam Sod 3.375 gm/Sodium Chloride 50 ml @ 100 mls/hr Q6HRS IV Last administered on 01/20/19 12:42; Start 01/19/19 at 12:00 Magnesium Sulfate 50 ml @ 25 mls/hr 1X ONCE IV Last administered on 01/19/19 15:04; Start 01/19/19 at 12:30; Stop 01/19/19 at 14:29; Status DC Dobutamine HCl/ Dextrose 250 ml @ 6.302 mls/ hr CONT PRN IV SEE I/O RECORD Last administered on 01/19/19 16:28; Start 01/19/19 at 16:00 Heparin Sodium (Porcine) (Heparin Sodium) 5,000 unit Q12HR SQ Last administered on 5/3/19at 10:41; Start 01/20/19 at 01:45 Active Scripts Active Reported Vitamin C (Ascorbate Calcium) 500 Mg Tablet 500 Mg PO DAILY Aspirin 325 Mg Tablet 1 Tab PO DAILY Coreg (Carvedilol) 3.125 Mg Tablet 3.125 Mg PO BIDWMEALS Zofran (Ondansetron Hcl) 4 Mg Tablet 4 Mg PO PRN Q6HRS PRN B-1 (Thiamine HCl) 100 Mg Tablet 100 Mg PO DAILY Docusate Sodium 100 Mg Capsule 100 Mg PO PRN PRN Acetaminophen 160 Mg/5 Ml Oral.susp 650 Mg PO PRN Q4HRS PRN Milk Of Magnesia (Magnesium Hydroxide) 2,400 Mg/10 Ml Oral.susp 2,400 Mg PO PRN PRN Mirtazapine 7.5 Mg Tablet 7.5 Mg PO QHS Albuterol Sulfate Neb Soln (Albuterol Sulfate) 2.5 Mg/3 Ml Vial.neb 2.5 Mg NEB BID Atorvastatin Calcium 10 Mg Tablet 10 Mg PO HS Lasix (Furosemide) 40 Mg Tablet 40 Mg PO BID Protonix (Pantoprazole Sodium) 20 Mg Tablet.dr 40 Mg PO DAILY Amiodarone Hcl 200 Mg Tablet 1 Tab PO DAILY Seroquel (Quetiapine Fumarate) 25 Mg Tablet 25 Mg PO HS Tramadol Hcl 50 Mg Tablet 25 Mg PO Q6HRS PRN Seroquel (Quetiapine Fumarate) 25 Mg Tablet 12.5 Mg PO PRN Q6HRS PRN Vitals/I & O Vital Sign - Last 24 Hours 01/19/19 01/19/19 01/19/19 01/19/19 15:00 15:08 16:00 16:00 Pulse 76 100 Resp 20 20 24 B/P (MAP) 102/48 (66) 111/54 (73) Pulse Ox 100 100 100 O2 Delivery Ventilator Ventilator Mechanical Ventilator 01/19/19 01/19/19 01/19/19 01/19/19 17:00 17:06 17:34 18:00 Temp 97.8 97.8 Pulse 82 92 Resp 18 19 18 B/P (MAP) 105/45 (65) 78/51 (60) Pulse Ox 100 100 100 100 O2 Delivery Ventilator Ventilator Ventilator 01/19/19 01/19/19 01/19/19 01/19/19 19:00 20:00 20:00 20:40 Temp 100.3 100.3 Pulse 92 108 Resp 18 19 19 B/P (MAP) 79/54 (62) 82/48 (59) Pulse Ox 100 100 100 O2 Delivery Ventilator Ventilator Mechanical Ventilator Ventilator 01/19/19 01/19/19 01/19/19 01/19/19 21:00 21:39 22:00 22:50 Pulse 120 120 Resp 19 18 19 B/P (MAP) 98/56 (70) 92/62 (72) Pulse Ox 100 100 100 100 O2 Delivery Ventilator Ventilator Ventilator Ventilator 01/19/19 01/19/19 01/20/19 01/20/19 23:00 23:52 00:00 00:00 Temp 99.3 99.3 Pulse 120 96 Resp 19 16 B/P (MAP) 104/57 (73) 114/60 (78) Pulse Ox 100 100 100 O2 Delivery Ventilator Ventilator Mechanical Ventilator Ventilator 01/20/19 01/20/19 01/20/19 01/20/19 01:00 02:00 02:09 03:00 Pulse 100 99 100 Resp 16 16 19 B/P (MAP) 111/53 (72) 104/49 (67) 116/55 (75) Pulse Ox 100 100 100 100 O2 Delivery Ventilator Ventilator Ventilator Ventilator 01/20/19 01/20/19 01/20/19 01/20/19 04:00 04:00 04:11 05:00 Temp 99.4 99.4 Pulse 102 97 Resp 19 16 B/P (MAP) 104/71 (82) 114/59 (77) Pulse Ox 100 100 100 O2 Delivery Mechanical Ventilator Ventilator Ventilator Ventilator 01/20/19 01/20/19 01/20/19 01/20/19 05:56 06:00 07:00 07:44 Temp 98.4 98.4 Pulse 100 90 Resp 17 18 B/P (MAP) 110/51 (70) 125/53 (77) Pulse Ox 100 99 98 99 O2 Delivery Ventilator Ventilator Ventilator Ventilator 01/20/19 01/20/19 01/20/19 01/20/19 08:00 08:00 08:34 09:00 Pulse 94 96 Resp 20 26 B/P (MAP) 110/52 (71) 101/52 (68) 109/51 (70) Pulse Ox 100 100 O2 Delivery Mechanical Ventilator Ventilator Nasal Cannula O2 Flow Rate 5.0 01/20/19 01/20/19 01/20/19 01/20/19 10:00 10:42 11:00 12:00 Temp 98.3 98.3 Pulse 98 120 119 101 Resp 26 29 16 B/P (MAP) 90/48 (62) 90/48 81/62 (68) 99/56 (70) Pulse Ox 100 100 100 O2 Delivery Nasal Cannula Nasal Cannula BiPAP/CPAP O2 Flow Rate 5.0 5.0 01/20/19 01/20/19 01/20/19 01/20/19 12:00 13:00 13:42 14:00 Pulse 93 91 Resp 29 28 B/P (MAP) 101/63 (76) 91/47 (62) Pulse Ox 92 94 O2 Delivery Mechanical Ventilator Nasal Cannula Nasal Cannula O2 Flow Rate 5.0 5.0 5.0 Intake and Output 01/19/19 01/19/19 01/20/19 15:00 23:00 07:00 Intake Total 550 ml 1481.59 ml 1339 ml Output Total 380 ml 760 ml 485 ml Balance 170 ml 721.59 ml 854 ml CHRISTINA CHAVARRIA MD January 20, 2019 14:54
--- NOTE | 2019-01-20 18:06 | PATHOLOGY ---
Note [facility] Accession Number: [id number] TESTS RESULT FLAG UNITS REF RANGE LAB Clinician Provided Cytology Information No. of containers..01 Other (Miscellaneous) Source: LEFT PLEURAL FLUID DIAGNOSIS: 02 LEFT PLEURAL FLUID NEGATIVE FOR MALIGNANT CELLS. MESOTHELIAL CELLS, SCATTERED INFLAMMATORY CELLS, AND RED BLOOD CELLS ARE PRESENT. THIS INTERPRETATION INCLUDES EVALUATION OF A CELL BLOCK. Signed out by: 02 Zia Keller MD, Pathologist NPI- [id number] Performed by: Sandra Hanna, Transit Planning Director ([facility]) Gross description: 01 50ML, BRIGHT RED, /LCS FLAG LEGEND: L-Low Normal,H-High Normal,LL-Alert Low,HH-Alert High <-Panic Low,>-Panic High,A-Abnormal,AA-Critical Abnormal Performed at: [facility] [address] [place] [address] Bartolo Watkins MD, 02 [facility] [address] [place] [address] Zia Keller MD, Specimen Comment: A courtesy copy of this report has been sent to Specimen Comment: [phone], , , . Specimen Comment: Report sent to ,DR PASTOR,DR CARNES / DR CHAVARRIA Specimen Comment: A duplicate report has been generated due to demographic updates. Performed at: [address], [place], [place] [id number] MD Bartolo Watkins MD Phone: [phone]
--- NOTE | 2019-01-20 19:18 | RAD ---
Single view abdomen 4:56 PM Feeding tube is identified but this extends toward the right lung base, likely due to bronchial positioning and should be withdrawn and replaced. Single view abdomen 5:07 PM Feeding tube now extends into the upper abdomen and overlies the gastric air bubble extending to the region of the antrum. Note that the patient is rotated quite a bit on this image. Electronically signed by: Holden Henao MD (01/20/2019 7:14 PM) [facility]
--- NOTE | 2019-01-20 19:18 | RAD ---
Single view abdomen 4:56 PM Feeding tube is identified but this extends toward the right lung base, likely due to bronchial positioning and should be withdrawn and replaced. Single view abdomen 5:07 PM Feeding tube now extends into the upper abdomen and overlies the gastric air bubble extending to the region of the antrum. Note that the patient is rotated quite a bit on this image. Electronically signed by: Holden Henao MD (01/20/2019 7:14 PM) [facility]
[2019-01-20] MEDS: ATORVASTATIN CALCIUM 10 MG TABLET. PO SCH (21:08)
[2019-01-20] MEDS: MIRTAZAPINE 7.5 MG TABLET. PO SCH (21:08)
[2019-01-20] MEDS: QUEtiapine 25 MG TABLET. PO PRN (21:08)
[2019-01-21] VITALS (31 sets, daily range): BP systolic 93–131; BP diastolic 41–69
[2019-01-21] MEDS: PIPERACILLIN/TAZOBACTAM 3.375 GM in IV NORMAL SALINE 50ML 50 ML IV SCH ×5 (00:58→17:30)
[2019-01-21] MEDS: INSULIN LISPRO 300 UNITS/3 ML INSULN.PEN. SQ SCH ×5 (06:00→23:48)
[2019-01-21 06:35] LABS: BASO # 0.1 x10^3/uL (0.0-0.2); BASO % 1 % (0-3); EOS # 0.2 x10^3/uL (0.0-0.7); EOS % 2 % (0-3); LYMPH # 0.6 x10^3/uL (1.0-4.8); LYMPH % 9 % (24-48); MEAN CORPUSCULAR HEMOGLOBIN 30 pg (25-35); MEAN CORPUSCULAR HGB CONC 32 g/dL (31-37); MEAN CORPUSCULAR VOLUME 95 fL (79-100); MONO # 0.5 x10^3/uL (0.0-1.1); MONO % 8 % (0-9); NEUT # 5.4 x10^3uL (1.8-7.7); NEUT % 80 % (31-73); PLATELET COUNT 159 x10^3/uL (140-400); RED BLOOD COUNT 2.17 x10^6/uL (3.50-5.40); RED CELL DISTRIBUTION WIDTH 19.8 % (11.5-14.5); WHITE BLOOD COUNT 6.7 x10^3/uL (4.0-11.0)
[2019-01-21 06:42] LABS: CALCIUM 7.9 mg/dL (8.5-10.1); CREATININE 1.3 mg/dL (0.6-1.0); GFR 40.4; HEMATOCRIT 20.5 % (36.0-47.0); HEMOGLOBIN 6.6 g/dL (12.0-15.5); POTASSIUM 3.2 mmol/L (3.5-5.1)
--- NOTE | 2019-01-21 07:35 | RAD ---
EXAM: Chest, single view. HISTORY: Respiratory failure. COMPARISON: 01/20/2019 FINDINGS: A frontal view of the chest obtained. There is stable diffuse lower lobe predominant interstitial infiltrate with small pleural effusions and cardiomegaly. There is no pneumothorax. There is a left PICC with the tip in the right atrium. There is a nasogastric tube within the stomach. IMPRESSION: Stable lower lobe predominant infiltrate with small pleural effusions and cardiomegaly. Electronically signed by: Teresa Omer MD (01/21/2019 7:32 AM) [facility]
[2019-01-21] MEDS: ALBUTEROL SULFATE 2.5 MG/3 ML NEBU. NEB SCH ×2 (08:33→19:59)
--- NOTE | 2019-01-21 09:17 | PDOC ---
Infectious Disease Note Subjective Subjective Thirsty, requesting a drink of water Denies SOA/cough/CP No fever last 24 hours Dobutamine and Levophed gtt (2 mcg) Tube feedings via Dobbhoff 20 ml/hr Supplemental O2 5L ROS ROS per HPI Vital Sign Vital Signs Vital Signs Date Time Temp Pulse Resp B/P (MAP) Pulse Ox O2 Delivery O2 Flow Rate FiO2 01/21/19 08:33 98 Nasal Cannula 5.0 01/21/19 06:00 79 14 131/65 (87) 01/21/19 04:00 98.5 98.5 Physical Exam PHYSICAL EXAM GENERAL: Propped up in bed, alert, NAD HEENT: Oral cavity dry, edentulous NECK: Supple, no JVP, no lymphadenopathy. LUNGS: Decreased breath sounds. HEART: S1, S2 regular. No gallop or murmur. ABDOMEN: Soft, nontender. : Kahn EXTREMITIES: No edema or cyanosis. SKIN: No rash. sacrococcygeal area of stage 3 decubitus. NEUROLOGIC: Alert and responding appropriately PIV Labs Lab Laboratory Tests Test 01/20/19 12:45 01/20/19 18:18 01/21/19 06:10 01/21/19 06:19 Glucose (Fingerstick) 164 mg/dL (70-99) 142 mg/dL (70-99) 109 mg/dL (70-99) White Blood Count 6.7 x10^3/uL (4.0-11.0) Red Blood Count 2.17 x10^6/uL (3.50-5.40) Hemoglobin 6.6 g/dL (12.0-15.5) Hematocrit 20.5 % (36.0-47.0) Mean Corpuscular Volume 95 fL (79-100) Mean Corpuscular Hemoglobin 30 pg (25-35) Mean Corpuscular Hemoglobin Concent 32 g/dL (31-37) Red Cell Distribution Width 19.8 % (11.5-14.5) Platelet Count 159 x10^3/uL (140-400) Neutrophils (%) (Auto) 80 % (31-73) Lymphocytes (%) (Auto) 9 % (24-48) Monocytes (%) (Auto) 8 % (0-9) Eosinophils (%) (Auto) 2 % (0-3) Basophils (%) (Auto) 1 % (0-3) Neutrophils # (Auto) 5.4 x10^3uL (1.8-7.7) Lymphocytes # (Auto) 0.6 x10^3/uL (1.0-4.8) Monocytes # (Auto) 0.5 x10^3/uL (0.0-1.1) Eosinophils # (Auto) 0.2 x10^3/uL (0.0-0.7) Basophils # (Auto) 0.1 x10^3/uL (0.0-0.2) Sodium Level 144 mmol/L (136-145) Potassium Level 3.2 mmol/L (3.5-5.1) Chloride Level 107 mmol/L (98-107) Carbon Dioxide Level 30 mmol/L (21-32) Anion Gap 7 (6-14) Blood Urea Nitrogen 41 mg/dL (7-20) Creatinine 1.3 mg/dL (0.6-1.0) Estimated GFR (Cockcroft-Gault) 40.4 Glucose Level 113 mg/dL (70-99) Calcium Level 7.9 mg/dL (8.5-10.1) Test 01/21/19 06:20 Glucose (Fingerstick) 101 mg/dL (70-99) IMPRESSION: Stable lower lobe predominant infiltrate with small pleural effusions and cardiomegaly. Micro URINE CULTURE RES 1 Final Yeast isolated. BLOOD CULTURE Preliminary NO GROWTH AFTER 4 DAYS Pleural fluid ANAEROBIC-AEROBIC CULTURE PENDING ANAEROBIC RES 1 PENDING AEROBIC CULT PENDING AEROBIC RES 1 PENDING GRAM STAIN Final Final report GRAM STAIN RES 1 Final Comment No white blood cells seen. GRAM STAIN RES 2 Final No organisms seen AFB CULTURE GRAM STAIN Final Negative Objective Assessment Fever, resolved Left loculated effusion, s/p thoracentesis on 01/19. Cultures pending Respiratory failure s/p extubation Circulatory failure CHF/Cardiomyopathy DM A fib, on amiodarone Stage 3 , sacral ulcer Anemia Yeast in urine, 01/16 Dysphagia Plan Plan of Care cont Zosyn (since 01/15) Off Zyvox f/u cultures PRBCs underway d/w RN Patient seen, examined, I agree with above Assessment and plan as formulated by [facility]. D/W daughter at bedside MATTMELECIO DURBIN PRANAV January 21, 2019 09:17 JEFF RYAN MD January 21, 2019 12:12
--- NOTE | 2019-01-21 10:08 | PDOC ---
PULMONARY PROGRESS NOTES Subjective EXTUBATED 01/20 DOING WELL Vitals Vital Signs Date Time Temp Pulse Resp B/P (MAP) Pulse Ox O2 Delivery O2 Flow Rate FiO2 01/21/19 08:33 98 Nasal Cannula 5.0 01/21/19 06:00 79 14 131/65 (87) 01/21/19 04:00 98.5 98.5 General: Alert, No acute distress Lungs: Clear Cardiovascular: S1, S2 Abdomen: Soft, Non-tender Extremities: Other (EDEMA) Skin: Warm Labs Laboratory Tests Test 01/19/19 12:22 01/19/19 17:38 01/20/19 00:14 01/20/19 06:00 Glucose (Fingerstick) 201 mg/dL (70-99) 149 mg/dL (70-99) 151 mg/dL (70-99) White Blood Count 7.3 x10^3/uL (4.0-11.0) Red Blood Count 2.72 x10^6/uL (3.50-5.40) Hemoglobin 8.3 g/dL (12.0-15.5) Hematocrit 25.5 % (36.0-47.0) Mean Corpuscular Volume 94 fL (79-100) Mean Corpuscular Hemoglobin 31 pg (25-35) Mean Corpuscular Hemoglobin Concent 33 g/dL (31-37) Red Cell Distribution Width 19.9 % (11.5-14.5) Platelet Count 169 x10^3/uL (140-400) Neutrophils (%) (Auto) 77 % (31-73) Lymphocytes (%) (Auto) 12 % (24-48) Monocytes (%) (Auto) 8 % (0-9) Eosinophils (%) (Auto) 2 % (0-3) Basophils (%) (Auto) 1 % (0-3) Neutrophils # (Auto) 5.6 x10^3uL (1.8-7.7) Lymphocytes # (Auto) 0.9 x10^3/uL (1.0-4.8) Monocytes # (Auto) 0.6 x10^3/uL (0.0-1.1) Eosinophils # (Auto) 0.2 x10^3/uL (0.0-0.7) Basophils # (Auto) 0.1 x10^3/uL (0.0-0.2) Sodium Level 141 mmol/L (136-145) Potassium Level 3.4 mmol/L (3.5-5.1) Chloride Level 105 mmol/L (98-107) Carbon Dioxide Level 29 mmol/L (21-32) Anion Gap 7 (6-14) Blood Urea Nitrogen 42 mg/dL (7-20) Creatinine 1.4 mg/dL (0.6-1.0) Estimated GFR (Cockcroft-Gault) 37.1 Glucose Level 186 mg/dL (70-99) Calcium Level 8.0 mg/dL (8.5-10.1) Magnesium Level 2.1 mg/dL (1.8-2.4) Test 01/20/19 06:05 01/20/19 08:40 01/20/19 12:45 01/20/19 18:18 Glucose (Fingerstick) 164 mg/dL (70-99) 164 mg/dL (70-99) 142 mg/dL (70-99) O2 Saturation 98 % (92-99) Arterial Blood pH 7.42 (7.35-7.45) Arterial Blood pCO2 at Patient Temp 43 mmHg (35-46) Arterial Blood pO2 at Patient Temp 123 mmHg (65-108) Arterial Blood HCO3 27 mmol/L (21-28) Arterial Blood Base Excess 2 mmol/L (-3-3) FiO2 40 Test 01/21/19 06:10 01/21/19 06:19 01/21/19 06:20 White Blood Count 6.7 x10^3/uL (4.0-11.0) Red Blood Count 2.17 x10^6/uL (3.50-5.40) Hemoglobin 6.6 g/dL (12.0-15.5) Hematocrit 20.5 % (36.0-47.0) Mean Corpuscular Volume 95 fL (79-100) Mean Corpuscular Hemoglobin 30 pg (25-35) Mean Corpuscular Hemoglobin Concent 32 g/dL (31-37) Red Cell Distribution Width 19.8 % (11.5-14.5) Platelet Count 159 x10^3/uL (140-400) Neutrophils (%) (Auto) 80 % (31-73) Lymphocytes (%) (Auto) 9 % (24-48) Monocytes (%) (Auto) 8 % (0-9) Eosinophils (%) (Auto) 2 % (0-3) Basophils (%) (Auto) 1 % (0-3) Neutrophils # (Auto) 5.4 x10^3uL (1.8-7.7) Lymphocytes # (Auto) 0.6 x10^3/uL (1.0-4.8) Monocytes # (Auto) 0.5 x10^3/uL (0.0-1.1) Eosinophils # (Auto) 0.2 x10^3/uL (0.0-0.7) Basophils # (Auto) 0.1 x10^3/uL (0.0-0.2) Sodium Level 144 mmol/L (136-145) Potassium Level 3.2 mmol/L (3.5-5.1) Chloride Level 107 mmol/L (98-107) Carbon Dioxide Level 30 mmol/L (21-32) Anion Gap 7 (6-14) Blood Urea Nitrogen 41 mg/dL (7-20) Creatinine 1.3 mg/dL (0.6-1.0) Estimated GFR (Cockcroft-Gault) 40.4 Glucose Level 113 mg/dL (70-99) Calcium Level 7.9 mg/dL (8.5-10.1) Glucose (Fingerstick) 109 mg/dL (70-99) 101 mg/dL (70-99) Laboratory Tests Test 01/20/19 12:45 01/20/19 18:18 01/21/19 06:10 01/21/19 06:19 Glucose (Fingerstick) 164 mg/dL (70-99) 142 mg/dL (70-99) 109 mg/dL (70-99) White Blood Count 6.7 x10^3/uL (4.0-11.0) Red Blood Count 2.17 x10^6/uL (3.50-5.40) Hemoglobin 6.6 g/dL (12.0-15.5) Hematocrit 20.5 % (36.0-47.0) Mean Corpuscular Volume 95 fL (79-100) Mean Corpuscular Hemoglobin 30 pg (25-35) Mean Corpuscular Hemoglobin Concent 32 g/dL (31-37) Red Cell Distribution Width 19.8 % (11.5-14.5) Platelet Count 159 x10^3/uL (140-400) Neutrophils (%) (Auto) 80 % (31-73) Lymphocytes (%) (Auto) 9 % (24-48) Monocytes (%) (Auto) 8 % (0-9) Eosinophils (%) (Auto) 2 % (0-3) Basophils (%) (Auto) 1 % (0-3) Neutrophils # (Auto) 5.4 x10^3uL (1.8-7.7) Lymphocytes # (Auto) 0.6 x10^3/uL (1.0-4.8) Monocytes # (Auto) 0.5 x10^3/uL (0.0-1.1) Eosinophils # (Auto) 0.2 x10^3/uL (0.0-0.7) Basophils # (Auto) 0.1 x10^3/uL (0.0-0.2) Sodium Level 144 mmol/L (136-145) Potassium Level 3.2 mmol/L (3.5-5.1) Chloride Level 107 mmol/L (98-107) Carbon Dioxide Level 30 mmol/L (21-32) Anion Gap 7 (6-14) Blood Urea Nitrogen 41 mg/dL (7-20) Creatinine 1.3 mg/dL (0.6-1.0) Estimated GFR (Cockcroft-Gault) 40.4 Glucose Level 113 mg/dL (70-99) Calcium Level 7.9 mg/dL (8.5-10.1) Test 01/21/19 06:20 Glucose (Fingerstick) 101 mg/dL (70-99) Medications Active Scripts Medications Dose Route/Sig Max Daily Dose Days Date Category Vitamin C (Ascorbate Calcium) 500 Mg Tablet 500 Mg PO DAILY 01/15/19 Reported Aspirin 325 Mg Tablet 1 Tab PO DAILY 01/15/19 Reported Coreg (Carvedilol) 3.125 Mg Tablet 3.125 Mg PO BIDWMEALS 01/15/19 Reported Zofran (Ondansetron Hcl) 4 Mg Tablet 4 Mg PO PRN Q6HRS PRN 01/15/19 Reported B-1 (Thiamine HCl) 100 Mg Tablet 100 Mg PO DAILY 01/15/19 Reported Docusate Sodium 100 Mg Capsule 100 Mg PO PRN PRN 01/15/19 Reported Acetaminophen 160 Mg/5 Ml Oral.susp 650 Mg PO PRN Q4HRS PRN 01/15/19 Reported Milk Of Magnesia (Magnesium Hydroxide) 2,400 Mg/10 Ml Oral.susp 2,400 Mg PO PRN PRN 01/15/19 Reported Mirtazapine 7.5 Mg Tablet 7.5 Mg PO QHS 01/15/19 Reported Albuterol Sulfate Neb Soln (Albuterol Sulfate) 2.5 Mg/3 Ml Vial.neb 2.5 Mg NEB BID 01/15/19 Reported Atorvastatin Calcium 10 Mg Tablet 10 Mg PO HS 01/15/19 Reported Lasix (Furosemide) 40 Mg Tablet 40 Mg PO BID 01/15/19 Reported Protonix (Pantoprazole Sodium) 20 Mg Tablet.dr 40 Mg PO DAILY 01/15/19 Reported Amiodarone Hcl 200 Mg Tablet 1 Tab PO DAILY 01/15/19 Reported Seroquel (Quetiapine Fumarate) 25 Mg Tablet 25 Mg PO HS 01/15/19 Reported Tramadol Hcl 50 Mg Tablet 25 Mg PO Q6HRS PRN 01/15/19 Reported Seroquel (Quetiapine Fumarate) 25 Mg Tablet 12.5 Mg PO PRN Q6HRS PRN 01/15/19 Reported Comments CXR 01/20 IMPROVED LEFT EFFUSION/ MILD CHF, NO CHANGE Impression . IMPRESSION: 1. Acute respiratory failure, status post cardiopulmonary arrest, the patient transferred from [facility]. 2. Acute on chronic systolic heart failure. EF 40% 3. Abnormal x-ray compatible with bilateral airspace disease in the lower lobes, ? pneumonia./ LIKELY CHF, left effusion, s/p left tap 01/19 4. Type 2 diabetes. 5. Severe protein malnutrition. 6. Thrombocytopenia. 7. History of pacemaker implantation. 8. Prior history of gastric ulcers. 9. ABNORMAL CXR Plan . DOING WELL ON CANULA ON LOW DOSE LEVO, TRY WEANING OFF TODAY CARDIOLOGY REC WILL CONTINUE SUPPORT DAUGHTER REPORTS MULTIPLE EPISODES OF APNEAS/ NO SLEEP STUDY IN PAST WILL NEED SS OP BIPAP QHS FOR NOW AND MIKHAIL WHITLEY MD January 21, 2019 10:08
--- NOTE | 2019-01-21 10:48 | PDOC ---
PROGRESS NOTES Subjective Subjective she is tired . discussed with family and dr. kaur . she will be on bipap at hs. on oxygen now per [place]. hgb low 6.6 and will receive 2 units prbc. Objective Objective Vital Signs Date Time Temp Pulse Resp B/P (MAP) Pulse Ox O2 Delivery O2 Flow Rate FiO2 01/21/19 08:33 98 Nasal Cannula 5.0 01/21/19 06:00 79 14 131/65 (87) 01/21/19 04:00 98.5 98.5 Intake and Output 01/21/19 06:59 Intake Total 2201.98 ml Output Total 1105 ml Balance 1096.98 ml IV Total 244.98 ml Tube Feeding 1493 ml Other 464 ml Output Urine Total 1105 ml Gastric Drainage Total 0 ml # Bowel Movements 3 Physical Exam Abdomen: Soft Heart: Regular rate, Normal S1, Normal S2 Extremities: Other (1 plus edema feet) General: Alert HEENT: Atraumatic Lungs: Other (decreased breath sounds) Neuro: Normal speech Psych/Mental Status: Other (tearful) Skin: No rashes Assessment Assessment Problems. Cardiopulmonary arrest. 2. Aspiration pneumonia suspected 3. Fever.resolved 4. Leukocytosis.resolved 5. Acute kidney injury most likely secondary to the cardiopulmonary arrest resolved 6. Hypotension still on levophed and dopamine 7. Elevated liver function tests improved 8. Nonischemic cardiomyopathy with improvement of left ventricular ejection fraction 15-20% improved to 40%. 9. Acute on chronic hypoxic and hypercapnic respiratory failure, on the ventilator. 10. Nonischemic cardiomyopathy. 11. Acute on chronic systolic congestive heart failure. 12. Paroxysmal atrial fibrillation, but not a candidate for Pradaxa due to recent gastrointestinal bleed in 06/2018 from gastric ulcer. 13. Oropharyngeal dysphagia. NG tube feeding 14. Diabetes mellitus type 2. 15. Mild coronary artery disease. hypokalemia anemia Medical Problems: (1) Cardiac arrest Status: Acute (2) HCAP (healthcare-associated pneumonia) Status: Acute (3) Liver failure Status: Acute Plan Plan of Care transfuse 2 units prbc today lab tomorrow bipap at hs wean off levophed continue iv dobutamine ST to evaluate swallo continue NG feedings continue zosyn replete kcl Comment Review of Relevant I have reviewed the following items kristen (where applicable) has been applied. Labs Laboratory Tests Test 01/19/19 12:22 01/19/19 17:38 01/20/19 00:14 01/20/19 06:00 Glucose (Fingerstick) 201 mg/dL (70-99) 149 mg/dL (70-99) 151 mg/dL (70-99) White Blood Count 7.3 x10^3/uL (4.0-11.0) Red Blood Count 2.72 x10^6/uL (3.50-5.40) Hemoglobin 8.3 g/dL (12.0-15.5) Hematocrit 25.5 % (36.0-47.0) Mean Corpuscular Volume 94 fL (79-100) Mean Corpuscular Hemoglobin 31 pg (25-35) Mean Corpuscular Hemoglobin Concent 33 g/dL (31-37) Red Cell Distribution Width 19.9 % (11.5-14.5) Platelet Count 169 x10^3/uL (140-400) Neutrophils (%) (Auto) 77 % (31-73) Lymphocytes (%) (Auto) 12 % (24-48) Monocytes (%) (Auto) 8 % (0-9) Eosinophils (%) (Auto) 2 % (0-3) Basophils (%) (Auto) 1 % (0-3) Neutrophils # (Auto) 5.6 x10^3uL (1.8-7.7) Lymphocytes # (Auto) 0.9 x10^3/uL (1.0-4.8) Monocytes # (Auto) 0.6 x10^3/uL (0.0-1.1) Eosinophils # (Auto) 0.2 x10^3/uL (0.0-0.7) Basophils # (Auto) 0.1 x10^3/uL (0.0-0.2) Sodium Level 141 mmol/L (136-145) Potassium Level 3.4 mmol/L (3.5-5.1) Chloride Level 105 mmol/L (98-107) Carbon Dioxide Level 29 mmol/L (21-32) Anion Gap 7 (6-14) Blood Urea Nitrogen 42 mg/dL (7-20) Creatinine 1.4 mg/dL (0.6-1.0) Estimated GFR (Cockcroft-Gault) 37.1 Glucose Level 186 mg/dL (70-99) Calcium Level 8.0 mg/dL (8.5-10.1) Magnesium Level 2.1 mg/dL (1.8-2.4) Test 01/20/19 06:05 01/20/19 08:40 01/20/19 12:45 01/20/19 18:18 Glucose (Fingerstick) 164 mg/dL (70-99) 164 mg/dL (70-99) 142 mg/dL (70-99) O2 Saturation 98 % (92-99) Arterial Blood pH 7.42 (7.35-7.45) Arterial Blood pCO2 at Patient Temp 43 mmHg (35-46) Arterial Blood pO2 at Patient Temp 123 mmHg (65-108) Arterial Blood HCO3 27 mmol/L (21-28) Arterial Blood Base Excess 2 mmol/L (-3-3) FiO2 40 Test 01/21/19 06:10 01/21/19 06:19 01/21/19 06:20 White Blood Count 6.7 x10^3/uL (4.0-11.0) Red Blood Count 2.17 x10^6/uL (3.50-5.40) Hemoglobin 6.6 g/dL (12.0-15.5) Hematocrit 20.5 % (36.0-47.0) Mean Corpuscular Volume 95 fL (79-100) Mean Corpuscular Hemoglobin 30 pg (25-35) Mean Corpuscular Hemoglobin Concent 32 g/dL (31-37) Red Cell Distribution Width 19.8 % (11.5-14.5) Platelet Count 159 x10^3/uL (140-400) Neutrophils (%) (Auto) 80 % (31-73) Lymphocytes (%) (Auto) 9 % (24-48) Monocytes (%) (Auto) 8 % (0-9) Eosinophils (%) (Auto) 2 % (0-3) Basophils (%) (Auto) 1 % (0-3) Neutrophils # (Auto) 5.4 x10^3uL (1.8-7.7) Lymphocytes # (Auto) 0.6 x10^3/uL (1.0-4.8) Monocytes # (Auto) 0.5 x10^3/uL (0.0-1.1) Eosinophils # (Auto) 0.2 x10^3/uL (0.0-0.7) Basophils # (Auto) 0.1 x10^3/uL (0.0-0.2) Sodium Level 144 mmol/L (136-145) Potassium Level 3.2 mmol/L (3.5-5.1) Chloride Level 107 mmol/L (98-107) Carbon Dioxide Level 30 mmol/L (21-32) Anion Gap 7 (6-14) Blood Urea Nitrogen 41 mg/dL (7-20) Creatinine 1.3 mg/dL (0.6-1.0) Estimated GFR (Cockcroft-Gault) 40.4 Glucose Level 113 mg/dL (70-99) Calcium Level 7.9 mg/dL (8.5-10.1) Glucose (Fingerstick) 109 mg/dL (70-99) 101 mg/dL (70-99) Laboratory Tests Test 01/20/19 12:45 01/20/19 18:18 01/21/19 06:10 01/21/19 06:19 Glucose (Fingerstick) 164 mg/dL (70-99) 142 mg/dL (70-99) 109 mg/dL (70-99) White Blood Count 6.7 x10^3/uL (4.0-11.0) Red Blood Count 2.17 x10^6/uL (3.50-5.40) Hemoglobin 6.6 g/dL (12.0-15.5) Hematocrit 20.5 % (36.0-47.0) Mean Corpuscular Volume 95 fL (79-100) Mean Corpuscular Hemoglobin 30 pg (25-35) Mean Corpuscular Hemoglobin Concent 32 g/dL (31-37) Red Cell Distribution Width 19.8 % (11.5-14.5) Platelet Count 159 x10^3/uL (140-400) Neutrophils (%) (Auto) 80 % (31-73) Lymphocytes (%) (Auto) 9 % (24-48) Monocytes (%) (Auto) 8 % (0-9) Eosinophils (%) (Auto) 2 % (0-3) Basophils (%) (Auto) 1 % (0-3) Neutrophils # (Auto) 5.4 x10^3uL (1.8-7.7) Lymphocytes # (Auto) 0.6 x10^3/uL (1.0-4.8) Monocytes # (Auto) 0.5 x10^3/uL (0.0-1.1) Eosinophils # (Auto) 0.2 x10^3/uL (0.0-0.7) Basophils # (Auto) 0.1 x10^3/uL (0.0-0.2) Sodium Level 144 mmol/L (136-145) Potassium Level 3.2 mmol/L (3.5-5.1) Chloride Level 107 mmol/L (98-107) Carbon Dioxide Level 30 mmol/L (21-32) Anion Gap 7 (6-14) Blood Urea Nitrogen 41 mg/dL (7-20) Creatinine 1.3 mg/dL (0.6-1.0) Estimated GFR (Cockcroft-Gault) 40.4 Glucose Level 113 mg/dL (70-99) Calcium Level 7.9 mg/dL (8.5-10.1) Test 01/21/19 06:20 Glucose (Fingerstick) 101 mg/dL (70-99) Microbiology 01/16/19 Blood Culture - Preliminary, Resulted NO GROWTH AFTER 4 DAYS 01/19/19 Anaerobic/Aerobic Culture, Resulted Pending 01/19/19 Anaerobic Culture Result 1 (BASIA), Resulted Pending 01/19/19 Aerobic Culture, Resulted Pending 01/19/19 Aerobic Culture Result 1 (BASIA), Resulted Pending 01/19/19 Gram Stain - Final, Resulted 01/19/19 Gram Stain Result 1 (BASIA) - Final, Resulted 01/19/19 Gram Stain Result 2 (BASIA) - Final, Resulted 01/19/19 AFB Specimen Processing Tissue - Final, Resulted 01/19/19 Acid Fast Bacilli Culture, Resulted Pending 01/19/19 Gram Stain - Final, Resulted 01/16/19 Urine Culture - Final, Complete 01/16/19 Urine Culture Result 1 (BASIA) - Final, Complete Medications Current Medications Propofol (Diprivan) 200 mg 1X ONCE IV ; Start 01/15/19 at 15:00; Stop 01/15/19 at 15:06; Status DC Midazolam HCl (Versed) 5 mg 1X ONCE IV Last administered on 01/15/19at 15:59; Start 01/15/19 at 15:00; Stop 01/15/19 at 15:01; Status DC Propofol 50 ml @ As Directed STK-MED ONCE IV ; Start 01/15/19 at 15:02; Stop 01/15/19 at 15:03; Status DC Midazolam HCl 100 ml @ 0 mls/hr 1X ONCE IV Last administered on 01/15/19at 15:19; Start 01/15/19 at 15:15; Stop 01/15/19 at 15:16; Status DC Calcium Gluconate (Calcium Gluconate) 1,000 mg 1X ONCE IVP Last administered on 01/15/19at 15:58; Start 01/15/19 at 15:30; Stop 01/15/19 at 15:31; Status DC Norepinephrine Bitartrate 250 ml @ 1.875 mls/ hr CONT PRN IV SEE I/O RECORD Last administered on 01/20/19at 04:15; Start 01/15/19 at 17:00 Piperacillin Sod/ Tazobactam Sod (Zosyn Per Pharmacy) 1 each PRN DAILY PRN MC SEE COMMENTS; Start 01/15/19 at 17:15 Albuterol Sulfate (Ventolin Neb Soln) 2.5 mg PRN Q4HRS PRN NEB SHORTNESS OF BREATH; Start 01/15/19 at 17:15 Midazolam HCl 100 ml @ 5 mls/hr CONT PRN IV SEE I/O RECORD Last administered on 01/19/19at 05:03; Start 01/15/19 at 17:15; Stop 01/20/19 at 09:46; Status DC Fentanyl Citrate (Fentanyl 2ml Vial) 50 mcg PRN Q2HR PRN IV PAIN Last administered on 01/19/19at 20:40; Start 01/15/19 at 17:15 Piperacillin Sod/ Tazobactam Sod 2.25 gm/Sodium Chloride 50 ml @ 100 mls/hr Q6HRS IV Last administered on 01/19/19at 05:59; Start 01/15/19 at 18:00; Stop 01/19/19 at 11:25; Status DC Albuterol Sulfate (Ventolin Neb Soln) 2.5 mg RTBID NEB Last administered on 01/21/19at 08:33; Start 01/15/19 at 20:00 Amiodarone HCl (Cordarone) 200 mg DAILY PO Last administered on 01/20/19at 10:42; Start 01/16/19 at 09:00 Aspirin (Dieudonne Aspirin) 325 mg DAILY PO Last administered on 01/20/19 10:42; Start 01/16/19 at 09:00 Atorvastatin Calcium (Lipitor) 10 mg HS PO Last administered on 01/20/19 21:08; Start 01/15/19 at 21:00 Carvedilol (Coreg) 3.125 mg BIDWMEALS PO ; Start 01/15/19 at 18:30; Stop 01/18/19 at 14:39; Status DC Docusate Sodium (Colace) 100 mg PRN DAILY PRN PO hard stools; Start 01/15/19 at 17:15 Furosemide (Lasix) 40 mg BID94 PO ; Start 01/16/19 at 09:00; Stop 01/16/19 at 10:50; Status DC Mirtazapine (Remeron) 7.5 mg DAILY PO ; Start 01/16/19 at 09:00; Stop 01/16/19 at 09:00; Status DC Tramadol HCl (Ultram) 25 mg PRN Q6HRS PRN PO MODERATE PAIN; Start 01/15/19 at 17:15 Acetaminophen (Tylenol) 650 mg PRN Q4HRS PRN PO FEVER Last administered on 01/15/19at 20:57; Start 01/15/19 at 17:15; Stop 01/16/19 at 08:07; Status DC Ascorbic Acid (Vitamin C) 500 mg DAILY PO Last administered on 01/20/19 10:42; Start 01/16/19 at 09:00 Magnesium Hydroxide (Milk Of Magnesia) 2,400 mg PRN DAILY PRN PO CONSTIPATION; Start 01/15/19 at 18:45 Ondansetron HCl (Zofran Odt) 4 mg PRN Q6HRS PRN PO NAUSEA/VOMITING; Start 01/15/19 at 18:45 Pantoprazole Sodium (Protonix) 40 mg DAILYAC PO Last administered on 01/18/19at 07:52; Start 01/16/19 at 07:30; Stop 01/18/19 at 08:02; Status DC Quetiapine Fumarate (SEROquel) 12.5 mg PRN Q6HRS PRN PO AGITATION Last administered on 01/20/19at 21:08; Start 01/15/19 at 17:15 Quetiapine Fumarate (SEROquel) 25 mg QHS PO Last administered on 01/17/19at 21:08; Start 01/15/19 at 21:00; Stop 01/18/19 at 14:39; Status DC Thiamine Mononitrate (Vitamin B-1) 100 mg DAILY PO Last administered on 01/20/19at 10:42; Start 01/16/19 at 09:00 Vancomycin HCl (Vanco Per Pharmacy) 1 each PRN DAILY PRN MC SEE COMMENTS Last administered on 01/15/19at 21:10; Start 01/15/19 at 17:45; Stop 01/16/19 at 08:06; Status DC Piperacillin Sod/ Tazobactam Sod (Zosyn Per Pharmacy) 1 each PRN DAILY PRN MC SEE COMMENTS; Start 01/15/19 at 17:45; Status UNV Insulin Human Lispro (HumaLOG) 0-5 UNITS TIDWMEALS SQ ; Start 01/16/19 at 08:00; Stop 01/16/19 at 08:00; Status DC Dextrose (Dextrose 50%-Water Syringe) 12.5 gm PRN Q15MIN PRN IV SEE COMMENTS; Start 01/15/19 at 17:45 Vancomycin HCl 2 gm/Sodium Chloride 500 ml @ 250 mls/hr 1X ONCE IV Last administered on 01/15/19at 20:56; Start 01/15/19 at 20:00; Stop 01/15/19 at 21:59; Status DC Insulin Human Lispro (HumaLOG) 0-5 UNITS Q6HRS SQ Last administered on 01/20/19at 12:47; Start 01/16/19 at 00:00 Vancomycin HCl 1.25 gm/Sodium Chloride 250 ml @ 167 mls/hr Q24H IV ; Start 01/16/19 at 21:00; Stop 01/16/19 at 21:00; Status DC Vancomycin HCl (Vancomycin Trough Level) 1 each 1X ONCE MC ; Start 01/17/19 at 20:30; Stop 01/17/19 at 20:31; Status Cancel Mirtazapine (Remeron) 7.5 mg QHS PO Last administered on 01/20/19at 21:08; Start 01/16/19 at 21:00 Linezolid/Dextrose 300 ml @ 300 mls/hr Q12HR IV Last administered on 01/19/19 21:52; Start 01/16/19 at 09:00; Stop 01/20/19 at 08:26; Status DC Acetaminophen (Tylenol) 650 mg PRN Q4HRS PRN PEG MILD PAIN / TEMP Last administered on 01/16/19 08:09; Start 01/16/19 at 08:15 Famotidine (Pepcid) 20 mg QHS PO Last administered on 01/17/19at 21:08; Start 01/16/19 at 21:00; Stop 01/18/19 at 13:06; Status DC Heparin Sodium (Porcine) (Heparin Sodium) 5,000 unit Q12HR SQ Last administered on 01/18/19 13:18; Start 01/16/19 at 21:00; Stop 01/19/19 at 20:15; Status DC Sodium Chloride 500 ml @ 250 mls/hr Q1HR PRN IV HYPOTENTION; Start 01/17/19 at 19:15 Pantoprazole Sodium (PROTONIX VIAL for IV PUSH) 40 mg DAILYAC IVP Last administered on 01/20/19at 10:41; Start 01/19/19 at 07:30 Piperacillin Sod/ Tazobactam Sod 3.375 gm/Sodium Chloride 50 ml @ 100 mls/hr Q6HRS IV Last administered on 01/21/19 06:21; Start 01/19/19 at 12:00 Magnesium Sulfate 50 ml @ 25 mls/hr 1X ONCE IV Last administered on 01/19/19at 15:04; Start 01/19/19 at 12:30; Stop 01/19/19 at 14:29; Status DC Dobutamine HCl/ Dextrose 250 ml @ 6.302 mls/ hr CONT PRN IV SEE I/O RECORD Last administered on 01/21/19at 07:23; Start 01/19/19 at 16:00 Heparin Sodium (Porcine) (Heparin Sodium) 5,000 unit Q12HR SQ Last administered on 01/20/19at 21:17; Start 01/20/19 at 01:45 Multivitamins (Thera-Plus Oral Liquid) 5 ml DAILY PEG ; Start 01/21/19 at 09:00 Active Scripts Active Reported Vitamin C (Ascorbate Calcium) 500 Mg Tablet 500 Mg PO DAILY Aspirin 325 Mg Tablet 1 Tab PO DAILY Coreg (Carvedilol) 3.125 Mg Tablet 3.125 Mg PO BIDWMEALS Zofran (Ondansetron Hcl) 4 Mg Tablet 4 Mg PO PRN Q6HRS PRN B-1 (Thiamine HCl) 100 Mg Tablet 100 Mg PO DAILY Docusate Sodium 100 Mg Capsule 100 Mg PO PRN PRN Acetaminophen 160 Mg/5 Ml Oral.susp 650 Mg PO PRN Q4HRS PRN Milk Of Magnesia (Magnesium Hydroxide) 2,400 Mg/10 Ml Oral.susp 2,400 Mg PO PRN PRN Mirtazapine 7.5 Mg Tablet 7.5 Mg PO QHS Albuterol Sulfate Neb Soln (Albuterol Sulfate) 2.5 Mg/3 Ml Vial.neb 2.5 Mg NEB BID Atorvastatin Calcium 10 Mg Tablet 10 Mg PO HS Lasix (Furosemide) 40 Mg Tablet 40 Mg PO BID Protonix (Pantoprazole Sodium) 20 Mg Tablet.dr 40 Mg PO DAILY Amiodarone Hcl 200 Mg Tablet 1 Tab PO DAILY Seroquel (Quetiapine Fumarate) 25 Mg Tablet 25 Mg PO HS Tramadol Hcl 50 Mg Tablet 25 Mg PO Q6HRS PRN Seroquel (Quetiapine Fumarate) 25 Mg Tablet 12.5 Mg PO PRN Q6HRS PRN Vitals/I & O Vital Sign - Last 24 Hours 01/20/19 01/20/19 01/20/19 01/20/19 11:00 12:00 12:00 13:00 Temp 98.3 98.3 Pulse 119 101 93 Resp 29 16 29 B/P (MAP) 81/62 (68) 99/56 (70) 101/63 (76) Pulse Ox 100 100 92 O2 Delivery Nasal Cannula BiPAP/CPAP Mechanical Ventilator Nasal Cannula O2 Flow Rate 5.0 5.0 01/20/19 01/20/19 01/20/19 01/20/19 13:42 14:00 15:00 16:00 Pulse 91 89 Resp 28 29 B/P (MAP) 91/47 (62) 92/51 (65) Pulse Ox 94 95 O2 Delivery Nasal Cannula Nasal Cannula O2 Flow Rate 5.0 5.0 5.0 5.0 01/20/19 01/20/19 01/20/19 01/20/19 16:00 16:00 17:00 18:00 Pulse 98 86 86 Resp 29 25 25 B/P (MAP) 101/51 (68) 98/54 (69) 90/49 (63) Pulse Ox 94 100 100 O2 Delivery Nasal Cannula Nasal Cannula Nasal Cannula Nasal Cannula O2 Flow Rate 5.0 5.0 5.0 5.0 01/20/19 01/20/19 01/20/19 01/20/19 19:00 19:48 20:00 20:00 Temp 98.0 98.0 Pulse 106 106 Resp 30 24 B/P (MAP) 95/50 (65) 82/57 (65) Pulse Ox 100 94 97 O2 Delivery Nasal Cannula Nasal Cannula Nasal Cannula O2 Flow Rate 5.0 5.0 5.0 5.0 01/20/19 01/20/19 01/20/19 01/20/19 20:00 21:00 22:00 23:00 Pulse 86 76 76 Resp 26 21 27 B/P (MAP) 98/47 (64) 95/56 (69) 96/44 (61) Pulse Ox 100 100 100 O2 Delivery Nasal Cannula Nasal Cannula BiPAP/CPAP BiPAP/CPAP O2 Flow Rate 5.0 5.0 01/20/19 01/20/19 01/21/19 01/21/19 23:02 23:59 00:00 00:01 Temp 98.4 98.4 Pulse 76 Resp 35 B/P (MAP) 127/60 (82) Pulse Ox 100 100 O2 Delivery BiPAP/CPAP Nasal Cannula BiPAP/CPAP O2 Flow Rate 5.0 5.0 01/21/19 01/21/19 01/21/19 01/21/19 01:00 01:10 02:00 03:00 Pulse 79 82 79 Resp 27 21 18 B/P (MAP) 97/49 (65) 96/50 (65) 101/53 (69) Pulse Ox 100 100 100 100 O2 Delivery BiPAP/CPAP BiPAP/CPAP BiPAP/CPAP BiPAP/CPAP 01/21/19 01/21/19 01/21/19 01/21/19 03:23 04:00 04:00 04:00 Temp 98.5 98.5 Pulse 81 Resp 29 B/P (MAP) 97/63 (74) Pulse Ox 100 100 O2 Delivery BiPAP/CPAP Nasal Cannula BiPAP/CPAP O2 Flow Rate 5.0 5.0 5/01/0601/21/19 01/21/19 01/21/19 05:00 05:45 06:00 08:33 Pulse 77 79 Resp 21 14 B/P (MAP) 114/52 (72) 131/65 (87) Pulse Ox 100 100 100 98 O2 Delivery BiPAP/CPAP BiPAP/CPAP BiPAP/CPAP Nasal Cannula O2 Flow Rate 5.0 Intake and Output 01/20/19 01/20/19 01/21/19 14:59 22:59 06:59 Intake Total 540 ml 1074.98 ml 587 ml Output Total 485 ml 315 ml 305 ml Balance 55 ml 759.98 ml 282 ml CHRISTINA CHAVARRIA MD January 21, 2019 10:48
[2019-01-21] MEDS ORDERED: POTASSIUM CHLORIDE 20 MEQ/15 ML ORAL LIQUID. PO ONE (11:00)
--- NOTE | 2019-01-21 11:30 | NUR ---
Bedside Swallow Evaluation completed. Please refer to full evaluation for additional information. Impressions: Moderate pharyngeal dysphagia consistent w/ laryngeal dysfunction likely r/t intubation w/ pt demonstrating hoarse voice and occasional aphonia in addition to consistent subtle s/s aspiration w/ minimal trials of PO. Given pt's extensive recent hx of multiple hospitalizations, intubations and need for non-oral nutrition & hydration at baseline, need for manager terminal non-oral nutrition (min. 1-3 wks) is highly probable. Videoswallow when pt more consistent w/ her swallow function may be indicated to further assess pharyngeal swallow and safety. Recommendations: NPO, continue tube feeding for nutrition, hydration and medications. Oral care. ST f/u for dysphagia. Swallow precautions posted in room and d/w pt/family/RN.
--- NOTE | 2019-01-21 11:30 | PDOC ---
Renal-Progress Notes Subjective Notes Notes NONE History of Present Illness Hx of present illness BETTER Vitals Vitals Vital Signs Date Time Temp Pulse Resp B/P (MAP) Pulse Ox O2 Delivery O2 Flow Rate FiO2 01/21/19 08:33 98 Nasal Cannula 5.0 01/21/19 06:00 79 14 131/65 (87) 01/21/19 04:00 98.5 98.5 Weight Weight [ ] I.O. Intake and Output Intake and Output 01/21/19 07:00 Intake Total 2201.98 ml Output Total 1065 ml Balance 1136.98 ml IV Total 244.98 ml Tube Feeding 1493 ml Other 464 ml Output Urine Total 1065 ml Gastric Drainage Total 0 ml # Bowel Movements 3 Labs Labs Laboratory Tests Test 01/20/19 12:45 01/20/19 18:18 01/21/19 06:10 01/21/19 06:19 Glucose (Fingerstick) 164 mg/dL (70-99) 142 mg/dL (70-99) 109 mg/dL (70-99) White Blood Count 6.7 x10^3/uL (4.0-11.0) Red Blood Count 2.17 x10^6/uL (3.50-5.40) Hemoglobin 6.6 g/dL (12.0-15.5) Hematocrit 20.5 % (36.0-47.0) Mean Corpuscular Volume 95 fL (79-100) Mean Corpuscular Hemoglobin 30 pg (25-35) Mean Corpuscular Hemoglobin Concent 32 g/dL (31-37) Red Cell Distribution Width 19.8 % (11.5-14.5) Platelet Count 159 x10^3/uL (140-400) Neutrophils (%) (Auto) 80 % (31-73) Lymphocytes (%) (Auto) 9 % (24-48) Monocytes (%) (Auto) 8 % (0-9) Eosinophils (%) (Auto) 2 % (0-3) Basophils (%) (Auto) 1 % (0-3) Neutrophils # (Auto) 5.4 x10^3uL (1.8-7.7) Lymphocytes # (Auto) 0.6 x10^3/uL (1.0-4.8) Monocytes # (Auto) 0.5 x10^3/uL (0.0-1.1) Eosinophils # (Auto) 0.2 x10^3/uL (0.0-0.7) Basophils # (Auto) 0.1 x10^3/uL (0.0-0.2) Sodium Level 144 mmol/L (136-145) Potassium Level 3.2 mmol/L (3.5-5.1) Chloride Level 107 mmol/L (98-107) Carbon Dioxide Level 30 mmol/L (21-32) Anion Gap 7 (6-14) Blood Urea Nitrogen 41 mg/dL (7-20) Creatinine 1.3 mg/dL (0.6-1.0) Estimated GFR (Cockcroft-Gault) 40.4 Glucose Level 113 mg/dL (70-99) Calcium Level 7.9 mg/dL (8.5-10.1) Test 01/21/19 06:20 Glucose (Fingerstick) 101 mg/dL (70-99) Micro Micro Microbiology 01/16/19 Blood Culture - Preliminary, Resulted NO GROWTH AFTER 4 DAYS 01/19/19 Anaerobic/Aerobic Culture, Resulted Pending 01/19/19 Anaerobic Culture Result 1 (BASIA), Resulted Pending 01/19/19 Aerobic Culture, Resulted Pending 01/19/19 Aerobic Culture Result 1 (BASIA), Resulted Pending 01/19/19 Gram Stain - Final, Resulted 01/19/19 Gram Stain Result 1 (BASIA) - Final, Resulted 01/19/19 Gram Stain Result 2 (BASIA) - Final, Resulted 01/19/19 AFB Specimen Processing Tissue - Final, Resulted 01/19/19 Acid Fast Bacilli Culture, Resulted Pending 01/19/19 Gram Stain - Final, Resulted 01/16/19 Urine Culture - Final, Complete 01/16/19 Urine Culture Result 1 (BASIA) - Final, Complete Review of Systems Constitutional: yes: other (UNABLE TO OBTAIN) Physical Exam General Appearance: no apparent distress Skin: warm Respiratory: decreased breath sounds Heart: S1S2 Abdomen: soft, bowel sounds present Genitourinary: bladder flat Extremities: pulses present Neurology: other (drowsy) Assessment Assessment IMP NICKIE-RESOLVING WITH CR DOWN TO 1.3 MILD HYPOKALEMIA HYPONATREMIA-RESOLVED ACUTE RESP FAILURE CMI WITH EF OF 15-20% PLEURAL EFFUSION-S/P THORACENTESIS PLAN K REPLACEMENT INOTROPES NEEDED WILL FOLLOW HERNANDEZ LOUIS MD January 21, 2019 11:30
[2019-01-21] MEDS: ASCORBIC ACID 500 MG TABLET PO SCH (11:55)
[2019-01-21] MEDS: ASPIRIN 325 MG TABLET PO SCH (11:55)
[2019-01-21] MEDS: AMIODARONE HCL 200 MG TABLET. PO SCH (11:55)
[2019-01-21] MEDS: THIAMINE 100 MG TABLET. PO SCH (11:56)
[2019-01-21] MEDS: MULTIVITAMINS,THERAPEUTIC 5 ML ORAL LIQUID. PEG SCH (11:56)
[2019-01-21] MEDS: PANTOPRAZOLE IV PUSH 40 MG VIAL. IVP SCH (12:00)
--- NOTE | 2019-01-21 13:17 | PDOC ---
PROGRESS NOTES Subjective Subjective Patient seen and examined Extubated yesterday. Feeling better today. Objective Objective Vital Signs Date Time Temp Pulse Resp B/P (MAP) Pulse Ox O2 Delivery O2 Flow Rate FiO2 01/21/19 12:25 100 BiPAP/CPAP 01/21/19 11:55 92 98/52 01/21/19 11:34 98.4 24 98.4 01/21/19 08:33 5.0 Intake and Output 01/21/19 07:00 Intake Total 2201.98 ml Output Total 1065 ml Balance 1136.98 ml IV Total 244.98 ml Tube Feeding 1493 ml Other 464 ml Output Urine Total 1065 ml Gastric Drainage Total 0 ml # Bowel Movements 3 Physical Exam Abdomen: Normal bowel sounds Heart: Regular rate General: mild distress Lungs: Other (mildly decreased breath sounds) Assessment Assessment Problems Medical Problems: (1) Cardiac arrest Status: Acute (2) HCAP (healthcare-associated pneumonia) Status: Acute (3) Liver failure Status: Acute 1. S/p cardiopulmonary arrest at [facility] 01/14/19. unclear rhythm, porter pect hypoxia induced. Current EF better at 40% 2. Acute and chronic respiratory failure: multifactorial PNA, CHF, pleural effusion. post extubation 3. Acute on chronic systolic heart failure: better 4. NICM; LVEF 15-20% now at 40% 5. NICKIE on CKD3; 6. Anemia; hgb 6.6. Being transfused. 7. Leukocytosis/fever/: ID following 8. Hypotension; BP improving. Weaning pressors 8. DM2/HLP 9. s/p lead-less PPM ([employer]). Device check with normal function- device doesn't collect episodes of AT/AF or VT/VF. No significant ectopy on tele 10. PAFIB; maintaining SR LBBB. Previously on Pradaxa, but discontinued due to GI bleed Comment Review of Relevant I have reviewed the following items kristen (where applicable) has been applied. Labs Laboratory Tests Test 01/19/19 17:38 01/20/19 00:14 01/20/19 06:00 01/20/19 06:05 Glucose (Fingerstick) 149 mg/dL (70-99) 151 mg/dL (70-99) 164 mg/dL (70-99) White Blood Count 7.3 x10^3/uL (4.0-11.0) Red Blood Count 2.72 x10^6/uL (3.50-5.40) Hemoglobin 8.3 g/dL (12.0-15.5) Hematocrit 25.5 % (36.0-47.0) Mean Corpuscular Volume 94 fL (79-100) Mean Corpuscular Hemoglobin 31 pg (25-35) Mean Corpuscular Hemoglobin Concent 33 g/dL (31-37) Red Cell Distribution Width 19.9 % (11.5-14.5) Platelet Count 169 x10^3/uL (140-400) Neutrophils (%) (Auto) 77 % (31-73) Lymphocytes (%) (Auto) 12 % (24-48) Monocytes (%) (Auto) 8 % (0-9) Eosinophils (%) (Auto) 2 % (0-3) Basophils (%) (Auto) 1 % (0-3) Neutrophils # (Auto) 5.6 x10^3uL (1.8-7.7) Lymphocytes # (Auto) 0.9 x10^3/uL (1.0-4.8) Monocytes # (Auto) 0.6 x10^3/uL (0.0-1.1) Eosinophils # (Auto) 0.2 x10^3/uL (0.0-0.7) Basophils # (Auto) 0.1 x10^3/uL (0.0-0.2) Sodium Level 141 mmol/L (136-145) Potassium Level 3.4 mmol/L (3.5-5.1) Chloride Level 105 mmol/L (98-107) Carbon Dioxide Level 29 mmol/L (21-32) Anion Gap 7 (6-14) Blood Urea Nitrogen 42 mg/dL (7-20) Creatinine 1.4 mg/dL (0.6-1.0) Estimated GFR (Cockcroft-Gault) 37.1 Glucose Level 186 mg/dL (70-99) Calcium Level 8.0 mg/dL (8.5-10.1) Magnesium Level 2.1 mg/dL (1.8-2.4) Test 01/20/19 08:40 01/20/19 12:45 01/20/19 18:18 01/21/19 06:10 O2 Saturation 98 % (92-99) Arterial Blood pH 7.42 (7.35-7.45) Arterial Blood pCO2 at Patient Temp 43 mmHg (35-46) Arterial Blood pO2 at Patient Temp 123 mmHg (65-108) Arterial Blood HCO3 27 mmol/L (21-28) Arterial Blood Base Excess 2 mmol/L (-3-3) FiO2 40 Glucose (Fingerstick) 164 mg/dL (70-99) 142 mg/dL (70-99) White Blood Count 6.7 x10^3/uL (4.0-11.0) Red Blood Count 2.17 x10^6/uL (3.50-5.40) Hemoglobin 6.6 g/dL (12.0-15.5) Hematocrit 20.5 % (36.0-47.0) Mean Corpuscular Volume 95 fL (79-100) Mean Corpuscular Hemoglobin 30 pg (25-35) Mean Corpuscular Hemoglobin Concent 32 g/dL (31-37) Red Cell Distribution Width 19.8 % (11.5-14.5) Platelet Count 159 x10^3/uL (140-400) Neutrophils (%) (Auto) 80 % (31-73) Lymphocytes (%) (Auto) 9 % (24-48) Monocytes (%) (Auto) 8 % (0-9) Eosinophils (%) (Auto) 2 % (0-3) Basophils (%) (Auto) 1 % (0-3) Neutrophils # (Auto) 5.4 x10^3uL (1.8-7.7) Lymphocytes # (Auto) 0.6 x10^3/uL (1.0-4.8) Monocytes # (Auto) 0.5 x10^3/uL (0.0-1.1) Eosinophils # (Auto) 0.2 x10^3/uL (0.0-0.7) Basophils # (Auto) 0.1 x10^3/uL (0.0-0.2) Sodium Level 144 mmol/L (136-145) Potassium Level 3.2 mmol/L (3.5-5.1) Chloride Level 107 mmol/L (98-107) Carbon Dioxide Level 30 mmol/L (21-32) Anion Gap 7 (6-14) Blood Urea Nitrogen 41 mg/dL (7-20) Creatinine 1.3 mg/dL (0.6-1.0) Estimated GFR (Cockcroft-Gault) 40.4 Glucose Level 113 mg/dL (70-99) Calcium Level 7.9 mg/dL (8.5-10.1) Test 01/21/19 06:19 01/21/19 06:20 01/21/19 12:49 Glucose (Fingerstick) 109 mg/dL (70-99) 101 mg/dL (70-99) 114 mg/dL (70-99) Laboratory Tests Test 01/20/19 18:18 01/21/19 06:10 01/21/19 06:19 01/21/19 06:20 Glucose (Fingerstick) 142 mg/dL (70-99) 109 mg/dL (70-99) 101 mg/dL (70-99) White Blood Count 6.7 x10^3/uL (4.0-11.0) Red Blood Count 2.17 x10^6/uL (3.50-5.40) Hemoglobin 6.6 g/dL (12.0-15.5) Hematocrit 20.5 % (36.0-47.0) Mean Corpuscular Volume 95 fL (79-100) Mean Corpuscular Hemoglobin 30 pg (25-35) Mean Corpuscular Hemoglobin Concent 32 g/dL (31-37) Red Cell Distribution Width 19.8 % (11.5-14.5) Platelet Count 159 x10^3/uL (140-400) Neutrophils (%) (Auto) 80 % (31-73) Lymphocytes (%) (Auto) 9 % (24-48) Monocytes (%) (Auto) 8 % (0-9) Eosinophils (%) (Auto) 2 % (0-3) Basophils (%) (Auto) 1 % (0-3) Neutrophils # (Auto) 5.4 x10^3uL (1.8-7.7) Lymphocytes # (Auto) 0.6 x10^3/uL (1.0-4.8) Monocytes # (Auto) 0.5 x10^3/uL (0.0-1.1) Eosinophils # (Auto) 0.2 x10^3/uL (0.0-0.7) Basophils # (Auto) 0.1 x10^3/uL (0.0-0.2) Sodium Level 144 mmol/L (136-145) Potassium Level 3.2 mmol/L (3.5-5.1) Chloride Level 107 mmol/L (98-107) Carbon Dioxide Level 30 mmol/L (21-32) Anion Gap 7 (6-14) Blood Urea Nitrogen 41 mg/dL (7-20) Creatinine 1.3 mg/dL (0.6-1.0) Estimated GFR (Cockcroft-Gault) 40.4 Glucose Level 113 mg/dL (70-99) Calcium Level 7.9 mg/dL (8.5-10.1) Test 01/21/19 12:49 Glucose (Fingerstick) 114 mg/dL (70-99) Microbiology 01/16/19 Blood Culture - Preliminary, Resulted NO GROWTH AFTER 4 DAYS 01/19/19 Anaerobic/Aerobic Culture, Resulted Pending 01/19/19 Anaerobic Culture Result 1 (BASIA), Resulted Pending 01/19/19 Aerobic Culture, Resulted Pending 01/19/19 Aerobic Culture Result 1 (BASIA), Resulted Pending 01/19/19 Gram Stain - Final, Resulted 01/19/19 Gram Stain Result 1 (BASIA) - Final, Resulted 01/19/19 Gram Stain Result 2 (BASIA) - Final, Resulted 01/19/19 AFB Specimen Processing Tissue - Final, Resulted 01/19/19 Acid Fast Bacilli Culture, Resulted Pending 01/19/19 Gram Stain - Final, Resulted 01/16/19 Urine Culture - Final, Complete 01/16/19 Urine Culture Result 1 (BASIA) - Final, Complete Medications Current Medications Propofol (Diprivan) 200 mg 1X ONCE IV ; Start 01/15/19 at 15:00; Stop 01/15/19 at 15:06; Status DC Midazolam HCl (Versed) 5 mg 1X ONCE IV Last administered on 01/15/19at 15:59; Start 01/15/19 at 15:00; Stop 01/15/19 at 15:01; Status DC Propofol 50 ml @ As Directed STK-MED ONCE IV ; Start 01/15/19 at 15:02; Stop 01/15/19 at 15:03; Status DC Midazolam HCl 100 ml @ 0 mls/hr 1X ONCE IV Last administered on 01/15/19at 15:19; Start 01/15/19 at 15:15; Stop 01/15/19 at 15:16; Status DC Calcium Gluconate (Calcium Gluconate) 1,000 mg 1X ONCE IVP Last administered on 01/15/19at 15:58; Start 01/15/19 at 15:30; Stop 01/15/19 at 15:31; Status DC Norepinephrine Bitartrate 250 ml @ 1.875 mls/ hr CONT PRN IV SEE I/O RECORD Last administered on 01/20/19at 04:15; Start 01/15/19 at 17:00 Piperacillin Sod/ Tazobactam Sod (Zosyn Per Pharmacy) 1 each PRN DAILY PRN MC SEE COMMENTS; Start 01/15/19 at 17:15 Albuterol Sulfate (Ventolin Neb Soln) 2.5 mg PRN Q4HRS PRN NEB SHORTNESS OF BREATH; Start 01/15/19 at 17:15 Midazolam HCl 100 ml @ 5 mls/hr CONT PRN IV SEE I/O RECORD Last administered on 01/19/19at 05:03; Start 01/15/19 at 17:15; Stop 01/20/19 at 09:46; Status DC Fentanyl Citrate (Fentanyl 2ml Vial) 50 mcg PRN Q2HR PRN IV PAIN Last administered on 01/19/19at 20:40; Start 01/15/19 at 17:15 Piperacillin Sod/ Tazobactam Sod 2.25 gm/Sodium Chloride 50 ml @ 100 mls/hr Q6HRS IV Last administered on 01/19/19at 05:59; Start 01/15/19 at 18:00; Stop at 11:25; Status DC Albuterol Sulfate (Ventolin Neb Soln) 2.5 mg RTBID NEB Last administered on 01/21/19at 08:33; Start 01/15/19 at 20:00 Amiodarone HCl (Cordarone) 200 mg DAILY PO Last administered on 01/21/19 11:55; Start 01/16/19 at 09:00 Aspirin (Dieudonne Aspirin) 325 mg DAILY PO Last administered on 01/21/19 11:55; Start 01/16/19 at 09:00 Atorvastatin Calcium (Lipitor) 10 mg HS PO Last administered on 01/20/19at 21:08; Start 01/15/19 at 21:00 Carvedilol (Coreg) 3.125 mg BIDWMEALS PO ; Start 01/15/19 at 18:30; Stop 01/18/19 at 14:39; Status DC Docusate Sodium (Colace) 100 mg PRN DAILY PRN PO hard stools; Start 01/15/19 at 17:15 Furosemide (Lasix) 40 mg BID94 PO ; Start 01/16/19 at 09:00; Stop 01/16/19 at 10:50; Status DC Mirtazapine (Remeron) 7.5 mg DAILY PO ; Start 01/16/19 at 09:00; Stop 01/16/19 at 09:00; Status DC Tramadol HCl (Ultram) 25 mg PRN Q6HRS PRN PO MODERATE PAIN; Start 01/15/19 at 17:15 Acetaminophen (Tylenol) 650 mg PRN Q4HRS PRN PO FEVER Last administered on 01/15/19at 20:57; Start 01/15/19 at 17:15; Stop 01/16/19 at 08:07; Status DC Ascorbic Acid (Vitamin C) 500 mg DAILY PO Last administered on 01/21/19 11:55; Start 01/16/19 at 09:00 Magnesium Hydroxide (Milk Of Magnesia) 2,400 mg PRN DAILY PRN PO CONSTIPATION; Start 01/15/19 at 18:45 Ondansetron HCl (Zofran Odt) 4 mg PRN Q6HRS PRN PO NAUSEA/VOMITING; Start 01/15/19 at 18:45 Pantoprazole Sodium (Protonix) 40 mg DAILYAC PO Last administered on 01/18/19at 07:52; Start 01/16/19 at 07:30; Stop 01/18/19 at 08:02; Status DC Quetiapine Fumarate (SEROquel) 12.5 mg PRN Q6HRS PRN PO AGITATION Last administered on 01/20/19 21:08; Start 01/15/19 at 17:15 Quetiapine Fumarate (SEROquel) 25 mg QHS PO Last administered on 01/17/19 21:08; Start 01/15/19 at 21:00; Stop 01/18/19 at 14:39; Status DC Thiamine Mononitrate (Vitamin B-1) 100 mg DAILY PO Last administered on 5/4/19at 11:56; Start 01/16/19 at 09:00 Vancomycin HCl (Vanco Per Pharmacy) 1 each PRN DAILY PRN MC SEE COMMENTS Last administered on 01/15/19at 21:10; Start 01/15/19 at 17:45; Stop 01/16/19 at 08:06; Status DC Piperacillin Sod/ Tazobactam Sod (Zosyn Per Pharmacy) 1 each PRN DAILY PRN MC SEE COMMENTS; Start 01/15/19 at 17:45; Status UNV Insulin Human Lispro (HumaLOG) 0-5 UNITS TIDWMEALS SQ ; Start 01/16/19 at 08:00; Stop 01/16/19 at 08:00; Status DC Dextrose (Dextrose 50%-Water Syringe) 12.5 gm PRN Q15MIN PRN IV SEE COMMENTS; Start 01/15/19 at 17:45 Vancomycin HCl 2 gm/Sodium Chloride 500 ml @ 250 mls/hr 1X ONCE IV Last administered on 01/15/19at 20:56; Start 01/15/19 at 20:00; Stop 01/15/19 at 21:59; Status DC Insulin Human Lispro (HumaLOG) 0-5 UNITS Q6HRS SQ Last administered on 01/20/19at 12:47; Start 01/16/19 at 00:00 Vancomycin HCl 1.25 gm/Sodium Chloride 250 ml @ 167 mls/hr Q24H IV ; Start 01/16/19 at 21:00; Stop 01/16/19 at 21:00; Status DC Vancomycin HCl (Vancomycin Trough Level) 1 each 1X ONCE MC ; Start 01/17/19 at 20:30; Stop 01/17/19 at 20:31; Status Cancel Mirtazapine (Remeron) 7.5 mg QHS PO Last administered on 01/20/19 21:08; Start 01/16/19 at 21:00 Linezolid/Dextrose 300 ml @ 300 mls/hr Q12HR IV Last administered on 01/19/19at 21:52; Start 01/16/19 at 09:00; Stop 01/20/19 at 08:26; Status DC Acetaminophen (Tylenol) 650 mg PRN Q4HRS PRN PEG MILD PAIN / TEMP Last administered on 01/16/19at 08:09; Start 01/16/19 at 08:15 Famotidine (Pepcid) 20 mg QHS PO Last administered on 01/17/19 21:08; Start 01/16/19 at 21:00; Stop 01/18/19 at 13:06; Status DC Heparin Sodium (Porcine) (Heparin Sodium) 5,000 unit Q12HR SQ Last administered on 01/18/19 13:18; Start 01/16/19 at 21:00; Stop 01/19/19 at 20:15; Status DC Sodium Chloride 500 ml @ 250 mls/hr Q1HR PRN IV HYPOTENTION; Start 01/17/19 at 19:15 Pantoprazole Sodium (PROTONIX VIAL for IV PUSH) 40 mg DAILYAC IVP Last administered on 01/21/19 12:00; Start 01/19/19 at 07:30 Piperacillin Sod/ Tazobactam Sod 3.375 gm/Sodium Chloride 50 ml @ 100 mls/hr Q6HRS IV Last administered on 01/21/19 11:57; Start 01/19/19 at 12:00 Magnesium Sulfate 50 ml @ 25 mls/hr 1X ONCE IV Last administered on 01/19/19 15:04; Start 01/19/19 at 12:30; Stop 01/19/19 at 14:29; Status DC Dobutamine HCl/ Dextrose 250 ml @ 6.302 mls/ hr CONT PRN IV SEE I/O RECORD Last administered on 01/21/19 07:23; Start 01/19/19 at 16:00 Heparin Sodium (Porcine) (Heparin Sodium) 5,000 unit Q12HR SQ Last administered on 01/20/19 21:17; Start 01/20/19 at 01:45 Multivitamins (Thera-Plus Oral Liquid) 5 ml DAILY PEG Last administered on 01/21/19 11:56; Start 01/21/19 at 09:00 Potassium Chloride (KCl Oral Soln) 40 meq 1X ONCE PO Last administered on 01/21/19 11:56; Start 01/21/19 at 11:00; Stop 01/21/19 at 11:01; Status DC Active Scripts Active Reported Vitamin C (Ascorbate Calcium) 500 Mg Tablet 500 Mg PO DAILY Aspirin 325 Mg Tablet 1 Tab PO DAILY Coreg (Carvedilol) 3.125 Mg Tablet 3.125 Mg PO BIDWMEALS Zofran (Ondansetron Hcl) 4 Mg Tablet 4 Mg PO PRN Q6HRS PRN B-1 (Thiamine HCl) 100 Mg Tablet 100 Mg PO DAILY Docusate Sodium 100 Mg Capsule 100 Mg PO PRN PRN Acetaminophen 160 Mg/5 Ml Oral.susp 650 Mg PO PRN Q4HRS PRN Milk Of Magnesia (Magnesium Hydroxide) 2,400 Mg/10 Ml Oral.susp 2,400 Mg PO PRN PRN Mirtazapine 7.5 Mg Tablet 7.5 Mg PO QHS Albuterol Sulfate Neb Soln (Albuterol Sulfate) 2.5 Mg/3 Ml Vial.neb 2.5 Mg NEB BID Atorvastatin Calcium 10 Mg Tablet 10 Mg PO HS Lasix (Furosemide) 40 Mg Tablet 40 Mg PO BID Protonix (Pantoprazole Sodium) 20 Mg Tablet.dr 40 Mg PO DAILY Amiodarone Hcl 200 Mg Tablet 1 Tab PO DAILY Seroquel (Quetiapine Fumarate) 25 Mg Tablet 25 Mg PO HS Tramadol Hcl 50 Mg Tablet 25 Mg PO Q6HRS PRN Seroquel (Quetiapine Fumarate) 25 Mg Tablet 12.5 Mg PO PRN Q6HRS PRN Vitals/I & O Vital Sign - Last 24 Hours 01/20/19 01/20/19 01/20/19 01/20/19 13:42 14:00 15:00 16:00 Pulse 91 89 Resp 28 29 B/P (MAP) 91/47 (62) 92/51 (65) Pulse Ox 94 95 O2 Delivery Nasal Cannula Nasal Cannula O2 Flow Rate 5.0 5.0 5.0 5.0 01/20/19 01/20/19 01/20/19 01/20/19 16:00 16:00 17:00 18:00 Pulse 98 86 86 Resp 29 25 25 B/P (MAP) 101/51 (68) 98/54 (69) 90/49 (63) Pulse Ox 94 100 100 O2 Delivery Nasal Cannula Nasal Cannula Nasal Cannula Nasal Cannula O2 Flow Rate 5.0 5.0 5.0 5.0 01/20/19 01/20/19 01/20/19 01/20/19 19:00 19:48 20:00 20:00 Temp 98.0 98.0 Pulse 106 106 Resp 30 24 B/P (MAP) 95/50 (65) 82/57 (65) Pulse Ox 100 94 97 O2 Delivery Nasal Cannula Nasal Cannula Nasal Cannula O2 Flow Rate 5.0 5.0 5.0 5.0 01/20/19 01/20/19 01/20/19 01/20/19 20:00 21:00 22:00 23:00 Pulse 86 76 76 Resp 26 21 27 B/P (MAP) 98/47 (64) 95/56 (69) 96/44 (61) Pulse Ox 100 100 100 O2 Delivery Nasal Cannula Nasal Cannula BiPAP/CPAP BiPAP/CPAP O2 Flow Rate 5.0 5.0 01/20/19 01/20/19 01/21/19 01/21/19 23:02 23:59 00:00 00:01 Temp 98.4 98.4 Pulse 76 Resp 35 B/P (MAP) 127/60 (82) Pulse Ox 100 100 O2 Delivery BiPAP/CPAP Nasal Cannula BiPAP/CPAP O2 Flow Rate 5.0 5.0 01/21/19 01/21/19 01/21/19 01/21/19 01:00 01:10 02:00 03:00 Pulse 79 82 79 Resp 27 21 18 B/P (MAP) 97/49 (65) 96/50 (65) 101/53 (69) Pulse Ox 100 100 100 100 O2 Delivery BiPAP/CPAP BiPAP/CPAP BiPAP/CPAP BiPAP/CPAP 01/21/19 01/21/19 01/21/19 01/21/19 03:23 04:00 04:00 04:00 Temp 98.5 98.5 Pulse 81 Resp 29 B/P (MAP) 97/63 (74) Pulse Ox 100 100 O2 Delivery BiPAP/CPAP Nasal Cannula BiPAP/CPAP O2 Flow Rate 5.0 5.0 01/21/19 01/21/19 01/21/19 01/21/19 05:00 05:45 06:00 07:00 Pulse 77 79 80 Resp 21 14 B/P (MAP) 114/52 (72) 131/65 (87) 130/69 (89) Pulse Ox 100 100 100 100 O2 Delivery BiPAP/CPAP BiPAP/CPAP BiPAP/CPAP BiPAP/CPAP 01/21/19 01/21/19 01/21/19 01/21/19 08:00 08:33 09:00 10:00 Temp 97.8 97.8 Pulse 88 90 90 B/P (MAP) 104/51 (68) 118/58 (78) 116/52 (73) Pulse Ox 99 98 100 100 O2 Delivery Nasal Cannula Nasal Cannula Nasal Cannula Nasal Cannula O2 Flow Rate 5.0 01/21/19 01/21/19 01/21/19 11:34 11:55 12:25 Temp 98.4 98.4 Pulse 94 92 Resp 24 B/P (MAP) 98/52 98/52 Pulse Ox 100 O2 Delivery BiPAP/CPAP Intake and Output 01/20/19 01/20/19 01/21/19 15:00 23:00 07:00 Intake Total 540 ml 1074.98 ml 587 ml Output Total 470 ml 330 ml 265 ml Balance 70 ml 744.98 ml 322 ml JEWEL PINEDA MD January 21, 2019 13:17
[2019-01-21] MEDS: HEPARIN for SUB-Q USE 5,000 UNIT/ML VIAL. SQ SCH ×2 (17:14→21:07)
--- NOTE | 2019-01-21 20:37 | RAD ---
EXAM: Abdomen, single. HISTORY: Dobbhoff placement. COMPARISON: 01/20/2009. FINDINGS: A frontal view of the upper abdomen is obtained. There is a enteric feeding catheter with the tip in the stomach. There is partial left lower lobe consolidation and suspected diffuse bilateral lower lobe predominant interstitial infiltrate. There is nodular opacity overlying the right mid thorax which may be due to infiltrate or dilated fluid within the pleural fissure. There are small pleural effusions. There is cardiomegaly. IMPRESSION: 1. Enteric catheter within the stomach. 2. Left lower lobe partial consolidation with diffuse lower lobe predominant infiltrate and small pleural effusions. There is nodularity overlying the right mid thorax which may be due to additional infiltrate or loculated fluid within the pleural fissure. Follow-up to exclude underlying neoplasm. Electronically signed by: Teresa Omer MD (01/21/2019 8:34 PM) [facility]
[2019-01-21] MEDS: MIRTAZAPINE 7.5 MG TABLET. PO SCH (21:06)
[2019-01-21] MEDS: ATORVASTATIN CALCIUM 10 MG TABLET. PO SCH (21:06)
[2019-01-22] VITALS (23 sets, daily range): BP systolic 95–120; BP diastolic 28–88
[2019-01-22] MEDS: QUEtiapine 25 MG TABLET. PO PRN ×4 (00:25→21:30)
[2019-01-22] MEDS: INSULIN LISPRO 300 UNITS/3 ML INSULN.PEN. SQ SCH ×4 (06:00→23:42)
[2019-01-22] MEDS: PIPERACILLIN/TAZOBACTAM 3.375 GM in IV NORMAL SALINE 50ML 50 ML IV SCH ×4 (06:11→23:37)
[2019-01-22 06:23] LABS: BASO # 0.1 x10^3/uL (0.0-0.2); BASO % 1 % (0-3); EOS # 0.2 x10^3/uL (0.0-0.7); EOS % 2 % (0-3); HEMATOCRIT 28.5 % (36.0-47.0); HEMOGLOBIN 9.3 g/dL (12.0-15.5); LYMPH # 0.8 x10^3/uL (1.0-4.8); LYMPH % 9 % (24-48); MEAN CORPUSCULAR HEMOGLOBIN 30 pg (25-35); MEAN CORPUSCULAR HGB CONC 33 g/dL (31-37); MEAN CORPUSCULAR VOLUME 92 fL (79-100); MONO # 0.6 x10^3/uL (0.0-1.1); MONO % 8 % (0-9); NEUT # 6.4 x10^3uL (1.8-7.7); NEUT % 80 % (31-73); PLATELET COUNT 172 x10^3/uL (140-400); RED BLOOD COUNT 3.08 x10^6/uL (3.50-5.40); RED CELL DISTRIBUTION WIDTH 18.8 % (11.5-14.5); WHITE BLOOD COUNT 8.1 x10^3/uL (4.0-11.0)
[2019-01-22 06:36] LABS: CALCIUM 8.3 mg/dL (8.5-10.1); CREATININE 1.2 mg/dL (0.6-1.0); GFR 44.3; MAGNESIUM 2.1 mg/dL (1.8-2.4); POTASSIUM 3.7 mmol/L (3.5-5.1)
--- NOTE | 2019-01-22 07:52 | RAD ---
EXAM: Chest, single view. HISTORY: Respiratory failure. COMPARISON: 01/21/2019 FINDINGS: A frontal view of the chest is obtained. There has been no significant change in partially consolidated bilateral lower lobe infiltrate superimposed on diffuse interstitial infiltrate. There is stable cardia megaly. There is stable small pleural effusions. There is no pneumothorax. There is an enteric feeding catheter extending beyond the inferior margin of the [id number]. There is a left PICC with the tip in the right atrium. IMPRESSION: 1. Stable partially consolidated bilateral lower lobe infiltrate superimposed on diffuse interstitial infiltrate. 2. Stable small pleural effusions and cardiomegaly. Electronically signed by: Teresa Omer MD (01/22/2019 7:49 AM) [facility]
--- NOTE | 2019-01-22 08:26 | PDOC ---
Infectious Disease Note Subjective Subjective "my butt hurts" No fever last 24 hours Still on Dobutamine but off Levophed gtt Tube feedings via Dobbhoff 40 ml/hr Supplemental O2 Diarrhea Vital Sign Vital Signs Vital Signs Date Time Temp Pulse Resp B/P (MAP) Pulse Ox O2 Delivery O2 Flow Rate FiO2 01/22/19 06:00 95 24 107/46 (66) 100 Nasal Cannula 5.0 01/22/19 04:00 99.0 99.0 Physical Exam PHYSICAL EXAM GENERAL: Sitting in the chair, conversing with someone not seen, mitts HEENT: Oral cavity dry, edentulous NECK: Supple, no JVP, no lymphadenopathy. LUNGS: Decreased breath sounds. HEART: S1, S2 regular. ABDOMEN: Soft, nontender. Rectal tube in place : Kahn EXTREMITIES: No edema or cyanosis. SCDs SKIN: No rash. sacrococcygeal area of stage 3 decubitus. NEUROLOGIC: Alert and confused LUE-PICC clean Labs Lab Laboratory Tests Test 01/21/19 12:49 01/21/19 17:13 01/21/19 23:45 01/22/19 06:09 Glucose (Fingerstick) 114 mg/dL (70-99) 100 mg/dL (70-99) 93 mg/dL (70-99) 105 mg/dL (70-99) Test 01/22/19 06:15 White Blood Count 8.1 x10^3/uL (4.0-11.0) Red Blood Count 3.08 x10^6/uL (3.50-5.40) Hemoglobin 9.3 g/dL (12.0-15.5) Hematocrit 28.5 % (36.0-47.0) Mean Corpuscular Volume 92 fL (79-100) Mean Corpuscular Hemoglobin 30 pg (25-35) Mean Corpuscular Hemoglobin Concent 33 g/dL (31-37) Red Cell Distribution Width 18.8 % (11.5-14.5) Platelet Count 172 x10^3/uL (140-400) Neutrophils (%) (Auto) 80 % (31-73) Lymphocytes (%) (Auto) 9 % (24-48) Monocytes (%) (Auto) 8 % (0-9) Eosinophils (%) (Auto) 2 % (0-3) Basophils (%) (Auto) 1 % (0-3) Neutrophils # (Auto) 6.4 x10^3uL (1.8-7.7) Lymphocytes # (Auto) 0.8 x10^3/uL (1.0-4.8) Monocytes # (Auto) 0.6 x10^3/uL (0.0-1.1) Eosinophils # (Auto) 0.2 x10^3/uL (0.0-0.7) Basophils # (Auto) 0.1 x10^3/uL (0.0-0.2) Sodium Level 145 mmol/L (136-145) Potassium Level 3.7 mmol/L (3.5-5.1) Chloride Level 109 mmol/L (98-107) Carbon Dioxide Level 29 mmol/L (21-32) Anion Gap 7 (6-14) Blood Urea Nitrogen 43 mg/dL (7-20) Creatinine 1.2 mg/dL (0.6-1.0) Estimated GFR (Cockcroft-Gault) 44.3 Glucose Level 116 mg/dL (70-99) Calcium Level 8.3 mg/dL (8.5-10.1) Magnesium Level 2.1 mg/dL (1.8-2.4) IMPRESSION: 1. Stable partially consolidated bilateral lower lobe infiltrate superimposed on diffuse interstitial infiltrate. 2. Stable small pleural effusions and cardiomegaly. Micro URINE CULTURE RES 1 Final Yeast isolated. BLOOD CULTURE Preliminary NO GROWTH AFTER 5 DAYS Pleural fluid ANAEROBIC-AEROBIC CULTURE PENDING ANAEROBIC RES 1 PENDING AEROBIC CULT PENDING AEROBIC RES 1 PENDING GRAM STAIN Final Final report GRAM STAIN RES 1 Final Comment No white blood cells seen. GRAM STAIN RES 2 Final No organisms seen AFB CULTURE GRAM STAIN Final Negative 01/20. sputum GRAM STAIN RESULT 1 Final Comment Few gram positive cocci Objective Assessment Fever, resolved Left loculated effusion, s/p thoracentesis on 01/19. Cultures pending. sputum GPC 01/20 Respiratory failure s/p extubation Circulatory failure CHF/Cardiomyopathy DM A fib, on amiodarone Stage 3 , sacral ulcer Anemia s/p PRBCs Yeast in urine, 01/16 Dysphagia Encephalopathy Plan Plan of Care cont Zosyn (since 01/15) Off Zyvox f/u cultures pt is npo at this time Patient seen, examined, I agree with above Assessment and plan formulated by PROFILE GRINDER TECHNICIAN D/W RN. MELECIO AG APRN January 22, 2019 08:26 JEFF RYAN MD January 22, 2019 14:06
[2019-01-22] MEDS: AMIODARONE HCL 200 MG TABLET. PO SCH (08:32)
[2019-01-22] MEDS: ASCORBIC ACID 500 MG TABLET PO SCH (08:32)
[2019-01-22] MEDS: ASPIRIN 325 MG TABLET PO SCH (08:33)
[2019-01-22] MEDS: THIAMINE 100 MG TABLET. PO SCH (08:33)
[2019-01-22] MEDS: PANTOPRAZOLE IV PUSH 40 MG VIAL. IVP SCH (08:33)
[2019-01-22] MEDS: MULTIVITAMINS,THERAPEUTIC 5 ML ORAL LIQUID. PEG SCH (08:33)
[2019-01-22] MEDS: ALBUTEROL SULFATE 2.5 MG/3 ML NEBU. NEB SCH ×2 (08:39→20:02)
[2019-01-22] MEDS: HEPARIN for SUB-Q USE 5,000 UNIT/ML VIAL. SQ SCH ×2 (09:13→20:58)
--- NOTE | 2019-01-22 10:29 | PDOC ---
PULMONARY PROGRESS NOTES Subjective EXTUBATED 01/20 DECLINED BIPAP LAST NIGHT Vitals Vital Signs Date Time Temp Pulse Resp B/P (MAP) Pulse Ox O2 Delivery O2 Flow Rate FiO2 01/22/19 08:41 98 Nasal Cannula 4.0 01/22/19 08:32 98 100/57 01/22/19 06:00 24 01/22/19 04:00 99.0 99.0 General: Alert, No acute distress Lungs: Clear Cardiovascular: S1, S2 Abdomen: Soft, Non-tender Extremities: Other (EDEMA) Skin: Warm Labs Laboratory Tests Test 01/20/19 12:45 01/20/19 18:18 01/21/19 06:10 01/21/19 06:19 Glucose (Fingerstick) 164 mg/dL (70-99) 142 mg/dL (70-99) 109 mg/dL (70-99) White Blood Count 6.7 x10^3/uL (4.0-11.0) Red Blood Count 2.17 x10^6/uL (3.50-5.40) Hemoglobin 6.6 g/dL (12.0-15.5) Hematocrit 20.5 % (36.0-47.0) Mean Corpuscular Volume 95 fL (79-100) Mean Corpuscular Hemoglobin 30 pg (25-35) Mean Corpuscular Hemoglobin Concent 32 g/dL (31-37) Red Cell Distribution Width 19.8 % (11.5-14.5) Platelet Count 159 x10^3/uL (140-400) Neutrophils (%) (Auto) 80 % (31-73) Lymphocytes (%) (Auto) 9 % (24-48) Monocytes (%) (Auto) 8 % (0-9) Eosinophils (%) (Auto) 2 % (0-3) Basophils (%) (Auto) 1 % (0-3) Neutrophils # (Auto) 5.4 x10^3uL (1.8-7.7) Lymphocytes # (Auto) 0.6 x10^3/uL (1.0-4.8) Monocytes # (Auto) 0.5 x10^3/uL (0.0-1.1) Eosinophils # (Auto) 0.2 x10^3/uL (0.0-0.7) Basophils # (Auto) 0.1 x10^3/uL (0.0-0.2) Sodium Level 144 mmol/L (136-145) Potassium Level 3.2 mmol/L (3.5-5.1) Chloride Level 107 mmol/L (98-107) Carbon Dioxide Level 30 mmol/L (21-32) Anion Gap 7 (6-14) Blood Urea Nitrogen 41 mg/dL (7-20) Creatinine 1.3 mg/dL (0.6-1.0) Estimated GFR (Cockcroft-Gault) 40.4 Glucose Level 113 mg/dL (70-99) Calcium Level 7.9 mg/dL (8.5-10.1) Test 01/21/19 06:20 01/21/19 12:49 01/21/19 17:13 01/21/19 23:45 Glucose (Fingerstick) 101 mg/dL (70-99) 114 mg/dL (70-99) 100 mg/dL (70-99) 93 mg/dL (70-99) Test 01/22/19 06:09 01/22/19 06:15 Glucose (Fingerstick) 105 mg/dL (70-99) White Blood Count 8.1 x10^3/uL (4.0-11.0) Red Blood Count 3.08 x10^6/uL (3.50-5.40) Hemoglobin 9.3 g/dL (12.0-15.5) Hematocrit 28.5 % (36.0-47.0) Mean Corpuscular Volume 92 fL (79-100) Mean Corpuscular Hemoglobin 30 pg (25-35) Mean Corpuscular Hemoglobin Concent 33 g/dL (31-37) Red Cell Distribution Width 18.8 % (11.5-14.5) Platelet Count 172 x10^3/uL (140-400) Neutrophils (%) (Auto) 80 % (31-73) Lymphocytes (%) (Auto) 9 % (24-48) Monocytes (%) (Auto) 8 % (0-9) Eosinophils (%) (Auto) 2 % (0-3) Basophils (%) (Auto) 1 % (0-3) Neutrophils # (Auto) 6.4 x10^3uL (1.8-7.7) Lymphocytes # (Auto) 0.8 x10^3/uL (1.0-4.8) Monocytes # (Auto) 0.6 x10^3/uL (0.0-1.1) Eosinophils # (Auto) 0.2 x10^3/uL (0.0-0.7) Basophils # (Auto) 0.1 x10^3/uL (0.0-0.2) Sodium Level 145 mmol/L (136-145) Potassium Level 3.7 mmol/L (3.5-5.1) Chloride Level 109 mmol/L (98-107) Carbon Dioxide Level 29 mmol/L (21-32) Anion Gap 7 (6-14) Blood Urea Nitrogen 43 mg/dL (7-20) Creatinine 1.2 mg/dL (0.6-1.0) Estimated GFR (Cockcroft-Gault) 44.3 Glucose Level 116 mg/dL (70-99) Calcium Level 8.3 mg/dL (8.5-10.1) Magnesium Level 2.1 mg/dL (1.8-2.4) Laboratory Tests Test 01/21/19 12:49 01/21/19 17:13 01/21/19 23:45 01/22/19 06:09 Glucose (Fingerstick) 114 mg/dL (70-99) 100 mg/dL (70-99) 93 mg/dL (70-99) 105 mg/dL (70-99) Test 01/22/19 06:15 White Blood Count 8.1 x10^3/uL (4.0-11.0) Red Blood Count 3.08 x10^6/uL (3.50-5.40) Hemoglobin 9.3 g/dL (12.0-15.5) Hematocrit 28.5 % (36.0-47.0) Mean Corpuscular Volume 92 fL (79-100) Mean Corpuscular Hemoglobin 30 pg (25-35) Mean Corpuscular Hemoglobin Concent 33 g/dL (31-37) Red Cell Distribution Width 18.8 % (11.5-14.5) Platelet Count 172 x10^3/uL (140-400) Neutrophils (%) (Auto) 80 % (31-73) Lymphocytes (%) (Auto) 9 % (24-48) Monocytes (%) (Auto) 8 % (0-9) Eosinophils (%) (Auto) 2 % (0-3) Basophils (%) (Auto) 1 % (0-3) Neutrophils # (Auto) 6.4 x10^3uL (1.8-7.7) Lymphocytes # (Auto) 0.8 x10^3/uL (1.0-4.8) Monocytes # (Auto) 0.6 x10^3/uL (0.0-1.1) Eosinophils # (Auto) 0.2 x10^3/uL (0.0-0.7) Basophils # (Auto) 0.1 x10^3/uL (0.0-0.2) Sodium Level 145 mmol/L (136-145) Potassium Level 3.7 mmol/L (3.5-5.1) Chloride Level 109 mmol/L (98-107) Carbon Dioxide Level 29 mmol/L (21-32) Anion Gap 7 (6-14) Blood Urea Nitrogen 43 mg/dL (7-20) Creatinine 1.2 mg/dL (0.6-1.0) Estimated GFR (Cockcroft-Gault) 44.3 Glucose Level 116 mg/dL (70-99) Calcium Level 8.3 mg/dL (8.5-10.1) Magnesium Level 2.1 mg/dL (1.8-2.4) Medications Active Scripts Medications Dose Route/Sig Max Daily Dose Days Date Category Vitamin C (Ascorbate Calcium) 500 Mg Tablet 500 Mg PO DAILY 01/15/19 Reported Aspirin 325 Mg Tablet 1 Tab PO DAILY 01/15/19 Reported Coreg (Carvedilol) 3.125 Mg Tablet 3.125 Mg PO BIDWMEALS 01/15/19 Reported Zofran (Ondansetron Hcl) 4 Mg Tablet 4 Mg PO PRN Q6HRS PRN 01/15/19 Reported B-1 (Thiamine HCl) 100 Mg Tablet 100 Mg PO DAILY 01/15/19 Reported Docusate Sodium 100 Mg Capsule 100 Mg PO PRN PRN 01/15/19 Reported Acetaminophen 160 Mg/5 Ml Oral.susp 650 Mg PO PRN Q4HRS PRN 01/15/19 Reported Milk Of Magnesia (Magnesium Hydroxide) 2,400 Mg/10 Ml Oral.susp 2,400 Mg PO PRN PRN 01/15/19 Reported Mirtazapine 7.5 Mg Tablet 7.5 Mg PO QHS 01/15/19 Reported Albuterol Sulfate Neb Soln (Albuterol Sulfate) 2.5 Mg/3 Ml Vial.neb 2.5 Mg NEB BID 01/15/19 Reported Atorvastatin Calcium 10 Mg Tablet 10 Mg PO HS 01/15/19 Reported Lasix (Furosemide) 40 Mg Tablet 40 Mg PO BID 01/15/19 Reported Protonix (Pantoprazole Sodium) 20 Mg Tablet.dr 40 Mg PO DAILY 01/15/19 Reported Amiodarone Hcl 200 Mg Tablet 1 Tab PO DAILY 01/15/19 Reported Seroquel (Quetiapine Fumarate) 25 Mg Tablet 25 Mg PO HS 01/15/19 Reported Tramadol Hcl 50 Mg Tablet 25 Mg PO Q6HRS PRN 01/15/19 Reported Seroquel (Quetiapine Fumarate) 25 Mg Tablet 12.5 Mg PO PRN Q6HRS PRN 01/15/19 Reported Comments CXR 01/20 IMPROVED LEFT EFFUSION/ MILD CHF, NO CHANGE Impression . IMPRESSION: 1. Acute respiratory failure, status post cardiopulmonary arrest, the patient transferred from [facility]. 2. Acute on chronic systolic heart failure. EF 40% 3. Abnormal x-ray compatible with bilateral airspace disease in the lower lobes, pneumonia./ CHF, left effusion, s/p left tap 01/19 4. Type 2 diabetes. 5. Severe protein malnutrition. 6. Thrombocytopenia. 7. History of pacemaker implantation. 8. Prior history of gastric ulcers. 9. ABNORMAL CXR Plan . DOING WELL ON CANULA ON LOW DOSE DOBUTAMINE, TRY WEANING OFF TODAY CARDIOLOGY REC WILL CONTINUE SUPPORT DAUGHTER REPORTS MULTIPLE EPISODES OF APNEAS/ NO SLEEP STUDY IN PAST/ TALKED TO PT TODAY. SHE WILL TRY TO US EBIPAP QHS/ RN TO TRY PRN DURING DAY WILL NEED SS OP NPO SPEECH F/U MIKHAIL SORENSEN MD January 22, 2019 10:29
--- NOTE | 2019-01-22 10:38 | PDOC ---
PROGRESS NOTES Subjective Subjective wants oral liquids. daughter notes that she was on HTL at [facility]. dr. kaur said okay to have nurse try liquids trial at bedside. lab and cxr reports reviewed . discussed with nurse and patient and patients daughter and dr. kaur. Objective Objective Vital Signs Date Time Temp Pulse Resp B/P (MAP) Pulse Ox O2 Delivery O2 Flow Rate FiO2 01/22/19 08:41 98 Nasal Cannula 4.0 01/22/19 08:32 98 100/57 01/22/19 06:00 24 01/22/19 04:00 99.0 99.0 Intake and Output 01/22/19 06:59 Intake Total 4285 ml Output Total 2210 ml Balance 2075 ml Intake Oral 0 ml IV Total 948 ml Tube Feeding 720 ml Blood Product IV Normal Saline Flush 2617 ml Output Urine Total 2210 ml Physical Exam Abdomen: Soft Heart: Regular rate, Normal S1, Normal S2 Extremities: Other (trace edema legs) General: Alert HEENT: Atraumatic Lungs: Other (decreased breath sounds anteriorly) Neuro: Normal speech Psych/Mental Status: Mood NL Skin: No rashes Assessment Assessment Problems recent cardiopulmonary arrest. 2. Aspiration pneumonia suspected 3. Fever.resolved 4. Leukocytosis.resolved 5. Acute kidney injury most likely secondary to the cardiopulmonary arrest resolved 6. Hypotension resolved on dobutamine 7. Elevated liver function tests improved 8. Nonischemic cardiomyopathy with improvement of left ventricular ejection fraction 15-20% improved to 40%. 9. Acute on chronic hypoxic and hypercapnic respiratory failure weaned off the ventilator 10. 11. Acute on chronic systolic congestive heart failure compensated 12. Paroxysmal atrial fibrillation, but not a candidate for Pradaxa due to recent gastrointestinal bleed in 06/2018 from gastric ulcer. 13. Oropharyngeal dysphagia. NG tube feeding 14. Diabetes mellitus type 2. 15. Mild coronary artery disease. hypokalemia resolved anemia Medical Problems: (1) Cardiac arrest Status: Acute (2) HCAP (healthcare-associated pneumonia) Status: Acute (3) Liver failure Status: Acute Plan Plan of Care dobutamine per cardiology continue NG feeding consult speech therapy to evaluate swallow nurse to evaluate HTL at bedside continue iv zosyn continue heparin for dvt prophylaxis Comment Review of Relevant I have reviewed the following items kristen (where applicable) has been applied. Labs Laboratory Tests Test 01/20/19 12:45 5/3/19 18:18 01/21/19 06:10 01/21/19 06:19 Glucose (Fingerstick) 164 mg/dL (70-99) 142 mg/dL (70-99) 109 mg/dL (70-99) White Blood Count 6.7 x10^3/uL (4.0-11.0) Red Blood Count 2.17 x10^6/uL (3.50-5.40) Hemoglobin 6.6 g/dL (12.0-15.5) Hematocrit 20.5 % (36.0-47.0) Mean Corpuscular Volume 95 fL (79-100) Mean Corpuscular Hemoglobin 30 pg (25-35) Mean Corpuscular Hemoglobin Concent 32 g/dL (31-37) Red Cell Distribution Width 19.8 % (11.5-14.5) Platelet Count 159 x10^3/uL (140-400) Neutrophils (%) (Auto) 80 % (31-73) Lymphocytes (%) (Auto) 9 % (24-48) Monocytes (%) (Auto) 8 % (0-9) Eosinophils (%) (Auto) 2 % (0-3) Basophils (%) (Auto) 1 % (0-3) Neutrophils # (Auto) 5.4 x10^3uL (1.8-7.7) Lymphocytes # (Auto) 0.6 x10^3/uL (1.0-4.8) Monocytes # (Auto) 0.5 x10^3/uL (0.0-1.1) Eosinophils # (Auto) 0.2 x10^3/uL (0.0-0.7) Basophils # (Auto) 0.1 x10^3/uL (0.0-0.2) Sodium Level 144 mmol/L (136-145) Potassium Level 3.2 mmol/L (3.5-5.1) Chloride Level 107 mmol/L (98-107) Carbon Dioxide Level 30 mmol/L (21-32) Anion Gap 7 (6-14) Blood Urea Nitrogen 41 mg/dL (7-20) Creatinine 1.3 mg/dL (0.6-1.0) Estimated GFR (Cockcroft-Gault) 40.4 Glucose Level 113 mg/dL (70-99) Calcium Level 7.9 mg/dL (8.5-10.1) Test 01/21/19 06:20 01/21/19 12:49 01/21/19 17:13 01/21/19 23:45 Glucose (Fingerstick) 101 mg/dL (70-99) 114 mg/dL (70-99) 100 mg/dL (70-99) 93 mg/dL (70-99) Test 01/22/19 06:09 01/22/19 06:15 Glucose (Fingerstick) 105 mg/dL (70-99) White Blood Count 8.1 x10^3/uL (4.0-11.0) Red Blood Count 3.08 x10^6/uL (3.50-5.40) Hemoglobin 9.3 g/dL (12.0-15.5) Hematocrit 28.5 % (36.0-47.0) Mean Corpuscular Volume 92 fL (79-100) Mean Corpuscular Hemoglobin 30 pg (25-35) Mean Corpuscular Hemoglobin Concent 33 g/dL (31-37) Red Cell Distribution Width 18.8 % (11.5-14.5) Platelet Count 172 x10^3/uL (140-400) Neutrophils (%) (Auto) 80 % (31-73) Lymphocytes (%) (Auto) 9 % (24-48) Monocytes (%) (Auto) 8 % (0-9) Eosinophils (%) (Auto) 2 % (0-3) Basophils (%) (Auto) 1 % (0-3) Neutrophils # (Auto) 6.4 x10^3uL (1.8-7.7) Lymphocytes # (Auto) 0.8 x10^3/uL (1.0-4.8) Monocytes # (Auto) 0.6 x10^3/uL (0.0-1.1) Eosinophils # (Auto) 0.2 x10^3/uL (0.0-0.7) Basophils # (Auto) 0.1 x10^3/uL (0.0-0.2) Sodium Level 145 mmol/L (136-145) Potassium Level 3.7 mmol/L (3.5-5.1) Chloride Level 109 mmol/L (98-107) Carbon Dioxide Level 29 mmol/L (21-32) Anion Gap 7 (6-14) Blood Urea Nitrogen 43 mg/dL (7-20) Creatinine 1.2 mg/dL (0.6-1.0) Estimated GFR (Cockcroft-Gault) 44.3 Glucose Level 116 mg/dL (70-99) Calcium Level 8.3 mg/dL (8.5-10.1) Magnesium Level 2.1 mg/dL (1.8-2.4) Laboratory Tests Test 01/21/19 12:49 01/21/19 17:13 01/21/19 23:45 01/22/19 06:09 Glucose (Fingerstick) 114 mg/dL (70-99) 100 mg/dL (70-99) 93 mg/dL (70-99) 105 mg/dL (70-99) Test 01/22/19 06:15 White Blood Count 8.1 x10^3/uL (4.0-11.0) Red Blood Count 3.08 x10^6/uL (3.50-5.40) Hemoglobin 9.3 g/dL (12.0-15.5) Hematocrit 28.5 % (36.0-47.0) Mean Corpuscular Volume 92 fL (79-100) Mean Corpuscular Hemoglobin 30 pg (25-35) Mean Corpuscular Hemoglobin Concent 33 g/dL (31-37) Red Cell Distribution Width 18.8 % (11.5-14.5) Platelet Count 172 x10^3/uL (140-400) Neutrophils (%) (Auto) 80 % (31-73) Lymphocytes (%) (Auto) 9 % (24-48) Monocytes (%) (Auto) 8 % (0-9) Eosinophils (%) (Auto) 2 % (0-3) Basophils (%) (Auto) 1 % (0-3) Neutrophils # (Auto) 6.4 x10^3uL (1.8-7.7) Lymphocytes # (Auto) 0.8 x10^3/uL (1.0-4.8) Monocytes # (Auto) 0.6 x10^3/uL (0.0-1.1) Eosinophils # (Auto) 0.2 x10^3/uL (0.0-0.7) Basophils # (Auto) 0.1 x10^3/uL (0.0-0.2) Sodium Level 145 mmol/L (136-145) Potassium Level 3.7 mmol/L (3.5-5.1) Chloride Level 109 mmol/L (98-107) Carbon Dioxide Level 29 mmol/L (21-32) Anion Gap 7 (6-14) Blood Urea Nitrogen 43 mg/dL (7-20) Creatinine 1.2 mg/dL (0.6-1.0) Estimated GFR (Cockcroft-Gault) 44.3 Glucose Level 116 mg/dL (70-99) Calcium Level 8.3 mg/dL (8.5-10.1) Magnesium Level 2.1 mg/dL (1.8-2.4) Microbiology 01/16/19 Blood Culture - Final, Complete NO GROWTH AFTER 5 DAYS 01/19/19 Anaerobic/Aerobic Culture, Resulted Pending 01/19/19 Anaerobic Culture Result 1 ([facility]IA), Resulted Pending 01/19/19 Aerobic Culture, Resulted Pending 01/19/19 Aerobic Culture Result 1 ([facility]), Resulted Pending 01/19/19 Gram Stain - Final, Resulted 01/19/19 Gram Stain Result 1 ([facility]) - Final, Resulted 01/19/19 Gram Stain Result 2 ([facility]IA) - Final, Resulted 01/20/19 - Final, Resulted 01/20/19 - Final, Resulted 01/20/19 - Final, Resulted 01/20/19 Gram Stain Evaluation - Final, Resulted 01/20/19 Sputum Culture, Resulted Pending 01/19/19 AFB Specimen Processing Tissue - Final, Resulted 01/19/19 Acid Fast Bacilli Culture, Resulted Pending 01/19/19 Gram Stain - Final, Resulted 01/16/19 Urine Culture - Final, Complete 01/16/19 Urine Culture Result 1 ([facility]IA) - Final, Complete Medications Current Medications Propofol (Diprivan) 200 mg 1X ONCE IV ; Start 01/15/19 at 15:00; Stop 01/15/19 at 15:06; Status DC Midazolam HCl (Versed) 5 mg 1X ONCE IV Last administered on 01/15/19at 15:59; Start 01/15/19 at 15:00; Stop 01/15/19 at 15:01; Status DC Propofol 50 ml @ As Directed STK-MED ONCE IV ; Start 01/15/19 at 15:02; Stop 01/15/19 at 15:03; Status DC Midazolam HCl 100 ml @ 0 mls/hr 1X ONCE IV Last administered on 01/15/19at 15:19; Start 01/15/19 at 15:15; Stop 01/15/19 at 15:16; Status DC Calcium Gluconate (Calcium Gluconate) 1,000 mg 1X ONCE IVP Last administered on 01/15/19at 15:58; Start 01/15/19 at 15:30; Stop 01/15/19 at 15:31; Status DC Norepinephrine Bitartrate 250 ml @ 1.875 mls/ hr CONT PRN IV SEE I/O RECORD Last administered on 01/20/19at 04:15; Start 01/15/19 at 17:00 Piperacillin Sod/ Tazobactam Sod (Zosyn Per Pharmacy) 1 each PRN DAILY PRN MC SEE COMMENTS; Start 01/15/19 at 17:15 Albuterol Sulfate (Ventolin Neb Soln) 2.5 mg PRN Q4HRS PRN NEB SHORTNESS OF BREATH; Start 01/15/19 at 17:15 Midazolam HCl 100 ml @ 5 mls/hr CONT PRN IV SEE I/O RECORD Last administered on 01/19/19at 05:03; Start 01/15/19 at 17:15; Stop 01/20/19 at 09:46; Status DC Fentanyl Citrate (Fentanyl 2ml Vial) 50 mcg PRN Q2HR PRN IV PAIN Last administered on 01/19/19at 20:40; Start 01/15/19 at 17:15 Piperacillin Sod/ Tazobactam Sod 2.25 gm/Sodium Chloride 50 ml @ 100 mls/hr Q6HRS IV Last administered on 01/19/19at 05:59; Start 01/15/19 at 18:00; Stop at 11:25; Status DC Albuterol Sulfate (Ventolin Neb Soln) 2.5 mg RTBID NEB Last administered on 01/22/19at 08:39; Start 01/15/19 at 20:00 Amiodarone HCl (Cordarone) 200 mg DAILY PO Last administered on 01/22/19at 08:32; Start 01/16/19 at 09:00 Aspirin (Dieudonne Aspirin) 325 mg DAILY PO Last administered on 01/22/19at 08:33; Start 01/16/19 at 09:00 Atorvastatin Calcium (Lipitor) 10 mg HS PO Last administered on 01/21/19at 21:06; Start 01/15/19 at 21:00 Carvedilol (Coreg) 3.125 mg BIDWMEALS PO ; Start 01/15/19 at 18:30; Stop 01/18/19 at 14:39; Status DC Docusate Sodium (Colace) 100 mg PRN DAILY PRN PO hard stools; Start 01/15/19 at 17:15 Furosemide (Lasix) 40 mg BID94 PO ; Start 01/16/19 at 09:00; Stop 01/16/19 at 10:50; Status DC Mirtazapine (Remeron) 7.5 mg DAILY PO ; Start 01/16/19 at 09:00; Stop 01/16/19 at 09:00; Status DC Tramadol HCl (Ultram) 25 mg PRN Q6HRS PRN PO MODERATE PAIN; Start 01/15/19 at 17:15 Acetaminophen (Tylenol) 650 mg PRN Q4HRS PRN PO FEVER Last administered on 01/15/19at 20:57; Start 01/15/19 at 17:15; Stop 01/16/19 at 08:07; Status DC Ascorbic Acid (Vitamin C) 500 mg DAILY PO Last administered on 01/22/19at 08:32; Start 01/16/19 at 09:00 Magnesium Hydroxide (Milk Of Magnesia) 2,400 mg PRN DAILY PRN PO CONSTIPATION; Start 01/15/19 at 18:45 Ondansetron HCl (Zofran Odt) 4 mg PRN Q6HRS PRN PO NAUSEA/VOMITING; Start 01/15/19 at 18:45 Pantoprazole Sodium (Protonix) 40 mg DAILYAC PO Last administered on 01/18/19at 07:52; Start 01/16/19 at 07:30; Stop 01/18/19 at 08:02; Status DC Quetiapine Fumarate (SEROquel) 12.5 mg PRN Q6HRS PRN PO AGITATION Last administered on 01/22/19at 09:54; Start 01/15/19 at 17:15 Quetiapine Fumarate (SEROquel) 25 mg QHS PO Last administered on 01/17/19at 21:08; Start 01/15/19 at 21:00; Stop 01/18/19 at 14:39; Status DC Thiamine Mononitrate (Vitamin B-1) 100 mg DAILY PO Last administered on 01/22/19at 08:33; Start 01/16/19 at 09:00 Vancomycin HCl (Vanco Per Pharmacy) 1 each PRN DAILY PRN MC SEE COMMENTS Last administered on 01/15/19at 21:10; Start 01/15/19 at 17:45; Stop 01/16/19 at 08:06; Status DC Piperacillin Sod/ Tazobactam Sod (Zosyn Per Pharmacy) 1 each PRN DAILY PRN MC SEE COMMENTS; Start 01/15/19 at 17:45; Status UNV Insulin Human Lispro (HumaLOG) 0-5 UNITS TIDWMEALS SQ ; Start 01/16/19 at 08:00; Stop 01/16/19 at 08:00; Status DC Dextrose (Dextrose 50%-Water Syringe) 12.5 gm PRN Q15MIN PRN IV SEE COMMENTS; Start 01/15/19 at 17:45 Vancomycin HCl 2 gm/Sodium Chloride 500 ml @ 250 mls/hr 1X ONCE IV Last administered on 01/15/19at 20:56; Start 01/15/19 at 20:00; Stop 01/15/19 at 21:59; Status DC Insulin Human Lispro (HumaLOG) 0-5 UNITS Q6HRS SQ Last administered on 01/20/19at 12:47; Start 01/16/19 at 00:00 Vancomycin HCl 1.25 gm/Sodium Chloride 250 ml @ 167 mls/hr Q24H IV ; Start 01/16/19 at 21:00; Stop 01/16/19 at 21:00; Status DC Vancomycin HCl (Vancomycin Trough Level) 1 each 1X ONCE MC ; Start 01/17/19 at 20:30; Stop 01/17/19 at 20:31; Status Cancel Mirtazapine (Remeron) 7.5 mg QHS PO Last administered on 01/21/19at 21:06; Start 01/16/19 at 21:00 Linezolid/Dextrose 300 ml @ 300 mls/hr Q12HR IV Last administered on 01/19/19at 21:52; Start 01/16/19 at 09:00; Stop 01/20/19 at 08:26; Status DC Acetaminophen (Tylenol) 650 mg PRN Q4HRS PRN PEG MILD PAIN / TEMP Last administered on 01/16/19 08:09; Start 01/16/19 at 08:15 Famotidine (Pepcid) 20 mg QHS PO Last administered on 01/17/19 21:08; Start 01/16/19 at 21:00; Stop 01/18/19 at 13:06; Status DC Heparin Sodium (Porcine) (Heparin Sodium) 5,000 unit Q12HR SQ Last administered on 01/18/19 13:18; Start 01/16/19 at 21:00; Stop 01/19/19 at 20:15; Status DC Sodium Chloride 500 ml @ 250 mls/hr Q1HR PRN IV HYPOTENTION; Start 01/17/19 at 19:15 Pantoprazole Sodium (PROTONIX VIAL for IV PUSH) 40 mg DAILYAC IVP Last administered on 01/22/19 08:33; Start 01/19/19 at 07:30 Piperacillin Sod/ Tazobactam Sod 3.375 gm/Sodium Chloride 50 ml @ 100 mls/hr Q6HRS IV Last administered on 01/22/19 06:11; Start 01/19/19 at 12:00 Magnesium Sulfate 50 ml @ 25 mls/hr 1X ONCE IV Last administered on 01/19/19 15:04; Start 01/19/19 at 12:30; Stop 01/19/19 at 14:29; Status DC Dobutamine HCl/ Dextrose 250 ml @ 6.302 mls/ hr CONT PRN IV SEE I/O RECORD Last administered on 01/21/19 07:23; Start 01/19/19 at 16:00 Heparin Sodium (Porcine) (Heparin Sodium) 5,000 unit Q12HR SQ Last administered on 01/22/19 09:13; Start 01/20/19 at 01:45 Multivitamins (Thera-Plus Oral Liquid) 5 ml DAILY PEG Last administered on 01/22/19 08:33; Start 01/21/19 at 09:00 Potassium Chloride (KCl Oral Soln) 40 meq 1X ONCE PO Last administered on 01/21/19 11:56; Start 01/21/19 at 11:00; Stop 01/21/19 at 11:01; Status DC Active Scripts Active Reported Vitamin C (Ascorbate Calcium) 500 Mg Tablet 500 Mg PO DAILY Aspirin 325 Mg Tablet 1 Tab PO DAILY Coreg (Carvedilol) 3.125 Mg Tablet 3.125 Mg PO BIDWMEALS Zofran (Ondansetron Hcl) 4 Mg Tablet 4 Mg PO PRN Q6HRS PRN B-1 (Thiamine HCl) 100 Mg Tablet 100 Mg PO DAILY Docusate Sodium 100 Mg Capsule 100 Mg PO PRN PRN Acetaminophen 160 Mg/5 Ml Oral.susp 650 Mg PO PRN Q4HRS PRN Milk Of Magnesia (Magnesium Hydroxide) 2,400 Mg/10 Ml Oral.susp 2,400 Mg PO PRN PRN Mirtazapine 7.5 Mg Tablet 7.5 Mg PO QHS Albuterol Sulfate Neb Soln (Albuterol Sulfate) 2.5 Mg/3 Ml Vial.neb 2.5 Mg NEB BID Atorvastatin Calcium 10 Mg Tablet 10 Mg PO HS Lasix (Furosemide) 40 Mg Tablet 40 Mg PO BID Protonix (Pantoprazole Sodium) 20 Mg Tablet.dr 40 Mg PO DAILY Amiodarone Hcl 200 Mg Tablet 1 Tab PO DAILY Seroquel (Quetiapine Fumarate) 25 Mg Tablet 25 Mg PO HS Tramadol Hcl 50 Mg Tablet 25 Mg PO Q6HRS PRN Seroquel (Quetiapine Fumarate) 25 Mg Tablet 12.5 Mg PO PRN Q6HRS PRN Vitals/I & O Vital Sign - Last 24 Hours 01/21/19 01/21/19 01/21/19 01/21/19 11:00 11:34 11:45 11:55 Temp 98.4 98.4 Pulse 92 94 88 92 Resp 31 24 20 B/P (MAP) 98/52 (67) 98/52 102/66 98/52 Pulse Ox 100 O2 Delivery Nasal Cannula O2 Flow Rate 5.0 01/21/19 01/21/19 01/21/19 01/21/19 12:00 12:00 12:15 12:25 Pulse 100 80 Resp 29 25 B/P (MAP) 98/62 111/52 Pulse Ox 100 O2 Delivery Nasal Cannula BiPAP/CPAP O2 Flow Rate 5.0 01/21/19 01/21/19 01/21/19 01/21/19 13:00 14:00 14:15 14:40 Temp 98.8 98.8 98.9 98.8 98.8 98.9 Pulse 92 88 87 87 Resp 27 26 B/P (MAP) 102/50 (67) 109/62 (78) 109/62 109/62 Pulse Ox 100 100 O2 Delivery Nasal Cannula Nasal Cannula 01/21/19 01/21/19 01/21/19 01/21/19 15:00 15:00 15:15 16:00 Temp 98.3 98.3 Pulse 66 86 88 90 Resp 20 30 30 B/P (MAP) 93/41 103/51 (68) 103/51 104/49 Pulse Ox 100 O2 Delivery Nasal Cannula 01/21/19 01/21/19 01/21/19 01/21/19 16:00 17:00 18:00 19:00 Temp 98.2 98.2 Pulse 90 100 100 103 Resp 26 18 28 B/P (MAP) 104/48 (66) 110/55 (73) 107/59 (75) 107/63 (78) Pulse Ox 100 100 100 98 O2 Delivery Nasal Cannula Nasal Cannula Nasal Cannula Nasal Cannula O2 Flow Rate 5.0 01/21/19 01/21/19 01/21/19 01/21/19 19:18 19:35 20:00 20:00 Temp 98.7 98.7 Pulse 107 Resp B/P (MAP) 110/63 (79) Pulse Ox 100 98 O2 Delivery Nasal Cannula Nasal Cannula Nasal Cannula Nasal Cannula O2 Flow Rate 5.0 5.0 5.0 01/21/19 01/21/19 01/21/19 01/21/19 21:00 22:00 23:00 23:59 Pulse 98 101 98 Resp 30 30 28 B/P (MAP) 99/53 (68) 99/55 (70) 99/50 (66) Pulse Ox 98 98 100 O2 Delivery Nasal Cannula Nasal Cannula Nasal Cannula Mechanical Ventilator 01/21/19 01/22/19 01/22/19 01/22/19 23:59 01:00 02:00 03:00 Temp 98.2 98.2 Pulse 101 100 100 100 Resp 28 28 24 24 B/P (MAP) 109/48 (68) 104/57 (73) 106/57 (73) 113/88 (96) Pulse Ox 99 100 100 100 O2 Delivery BiPAP/CPAP Nasal Cannula Nasal Cannula Nasal Cannula O2 Flow Rate 5.0 5.0 5.0 01/22/19 01/22/19 01/22/19 01/22/19 04:00 04:00 05:06 06:00 Temp 99.0 99.0 Pulse 98 85 95 Resp 29 24 24 B/P (MAP) 104/59 (74) 110/60 (77) 107/46 (66) Pulse Ox 99 100 100 O2 Delivery BiPAP/CPAP Mechanical Ventilator Nasal Cannula Nasal Cannula O2 Flow Rate 5.0 5.0 5.0 01/22/19 01/22/19 08:32 08:41 Pulse 98 B/P (MAP) 100/57 Pulse Ox 98 O2 Delivery Nasal Cannula O2 Flow Rate 4.0 Intake and Output 01/21/19 01/21/19 01/22/19 14:59 22:59 06:59 Intake Total 1264 ml 1785 ml 1236 ml Output Total 785 ml 650 ml 775 ml Balance 479 ml 1135 ml 461 ml CHRISTINA CHAVARRIA MD January 22, 2019 10:38
--- NOTE | 2019-01-22 11:51 | PDOC ---
Renal-Progress Notes Subjective Notes Notes NONE History of Present Illness Hx of present illness STABLE Vitals Vitals Vital Signs Date Time Temp Pulse Resp B/P (MAP) Pulse Ox O2 Delivery O2 Flow Rate FiO2 01/22/19 08:41 98 Nasal Cannula 4.0 01/22/19 08:32 98 100/57 01/22/19 06:00 24 01/22/19 04:00 99.0 99.0 Weight Weight [ ] I.O. Intake and Output Intake and Output 01/22/19 07:00 Intake Total 4285 ml Output Total 2160 ml Balance 2125 ml IV Total 948 ml Tube Feeding 720 ml Blood Product IV Normal Saline Flush 2617 ml Output Urine Total 2160 ml Labs Labs Laboratory Tests Test 01/21/19 12:49 01/21/19 17:13 01/21/19 23:45 01/22/19 06:09 Glucose (Fingerstick) 114 mg/dL (70-99) 100 mg/dL (70-99) 93 mg/dL (70-99) 105 mg/dL (70-99) Test 01/22/19 06:15 White Blood Count 8.1 x10^3/uL (4.0-11.0) Red Blood Count 3.08 x10^6/uL (3.50-5.40) Hemoglobin 9.3 g/dL (12.0-15.5) Hematocrit 28.5 % (36.0-47.0) Mean Corpuscular Volume 92 fL (79-100) Mean Corpuscular Hemoglobin 30 pg (25-35) Mean Corpuscular Hemoglobin Concent 33 g/dL (31-37) Red Cell Distribution Width 18.8 % (11.5-14.5) Platelet Count 172 x10^3/uL (140-400) Neutrophils (%) (Auto) 80 % (31-73) Lymphocytes (%) (Auto) 9 % (24-48) Monocytes (%) (Auto) 8 % (0-9) Eosinophils (%) (Auto) 2 % (0-3) Basophils (%) (Auto) 1 % (0-3) Neutrophils # (Auto) 6.4 x10^3uL (1.8-7.7) Lymphocytes # (Auto) 0.8 x10^3/uL (1.0-4.8) Monocytes # (Auto) 0.6 x10^3/uL (0.0-1.1) Eosinophils # (Auto) 0.2 x10^3/uL (0.0-0.7) Basophils # (Auto) 0.1 x10^3/uL (0.0-0.2) Sodium Level 145 mmol/L (136-145) Potassium Level 3.7 mmol/L (3.5-5.1) Chloride Level 109 mmol/L (98-107) Carbon Dioxide Level 29 mmol/L (21-32) Anion Gap 7 (6-14) Blood Urea Nitrogen 43 mg/dL (7-20) Creatinine 1.2 mg/dL (0.6-1.0) Estimated GFR (Cockcroft-Gault) 44.3 Glucose Level 116 mg/dL (70-99) Calcium Level 8.3 mg/dL (8.5-10.1) Magnesium Level 2.1 mg/dL (1.8-2.4) Micro Micro Microbiology 01/16/19 Blood Culture - Final, Complete NO GROWTH AFTER 5 DAYS 01/19/19 Anaerobic/Aerobic Culture, Resulted Pending 01/19/19 Anaerobic Culture Result 1 ([facility]), Resulted Pending 01/19/19 Aerobic Culture, Resulted Pending 01/19/19 Aerobic Culture Result 1 ([facility]), Resulted Pending 01/19/19 Gram Stain - Final, Resulted 01/19/19 Gram Stain Result 1 ([facility]) - Final, Resulted 01/19/19 Gram Stain Result 2 ([facility]) - Final, Resulted 01/20/19 - Final, Resulted 01/20/19 - Final, Resulted 01/20/19 - Final, Resulted 01/20/19 Gram Stain Evaluation - Final, Resulted 01/20/19 Sputum Culture, Resulted Pending 01/19/19 AFB Specimen Processing Tissue - Final, Resulted 01/19/19 Acid Fast Bacilli Culture, Resulted Pending 01/19/19 Gram Stain - Final, Resulted 01/16/19 Urine Culture - Final, Complete 01/16/19 Urine Culture Result 1 ([facility]) - Final, Complete Review of Systems Constitutional: yes: other (UNABLE TO OBTAIN) Physical Exam General Appearance: no apparent distress Skin: warm Respiratory: decreased breath sounds Heart: S1S2 Abdomen: soft, bowel sounds present Genitourinary: bladder flat Extremities: pulses present Neurology: other (drowsy) Assessment Assessment IMP NICKIE-RESOLVING WITH CR DOWN TO 1.2 MILD HYPOKALEMIA-BETTER HYPONATREMIA-RESOLVED ACUTE RESP FAILURE CMI WITH EF OF 15-20% PLEURAL EFFUSION-S/P THORACENTESIS PLAN K REPLACEMENT INOTROPES NEEDED WILL FOLLOW HERNANDEZ LOUIS MD January 22, 2019 11:51
[2019-01-22] MEDS: fentaNYL PF VIAL 100 MCG/2 ML VIAL IV PRN ×2 (15:23→20:05)
--- NOTE | 2019-01-22 16:15 | PDOC ---
PROGRESS NOTES Subjective Subjective Patient seen and examined She is more fatigued today. Objective Objective Vital Signs Date Time Temp Pulse Resp B/P (MAP) Pulse Ox O2 Delivery O2 Flow Rate FiO2 01/22/19 15:23 100 Nasal Cannula 5.0 01/22/19 13:00 98.6 88 24 102/53 (69) 98.6 Intake and Output 01/22/19 06:59 Intake Total 4285 ml Output Total 2210 ml Balance 2075 ml Intake Oral 0 ml IV Total 948 ml Tube Feeding 720 ml Blood Product IV Normal Saline Flush 2617 ml Output Urine Total 2210 ml Physical Exam Abdomen: Normal bowel sounds Heart: Regular rate General: mild distress Lungs: Other (mildly decreased breath sounds) Assessment Assessment Problems Medical Problems: (1) Cardiac arrest Status: Acute (2) HCAP (healthcare-associated pneumonia) Status: Acute (3) Liver failure Status: Acute 1. S/p cardiopulmonary arrest at [facility] 01/14/19. unclear rhythm, suspect hypoxia induced. Current EF better at 40% 2. Acute and chronic respiratory failure: multifactorial PNA, CHF, pleural effusion. post extubation. Since somewhat more short of breath today. 3. Acute on chronic systolic heart failure: ICU present treatment. 4. NICM; LVEF 15-20% now at 40% 5. NICKIE on CKD3; reacting improving. 6. Anemia; hgb 6.6. Being transfused. 7. Leukocytosis/fever/: ID following 8. Hypotension; BP improving. Weaning pressors 8. DM2/HLP 9. s/p lead-less PPM ([employer]). Device check with normal function- device doesn't collect episodes of AT/AF or VT/VF. No significant ectopy on tele 10. PAFIB; maintaining SR LBBB. Previously on Pradaxa, but discontinued due to GI bleed Comment Review of Relevant I have reviewed the following items kristen (where applicable) has been applied. Labs Laboratory Tests Test 01/20/19 18:18 01/21/19 06:10 01/21/19 06:19 01/21/19 06:20 Glucose (Fingerstick) 142 mg/dL (70-99) 109 mg/dL (70-99) 101 mg/dL (70-99) White Blood Count 6.7 x10^3/uL (4.0-11.0) Red Blood Count 2.17 x10^6/uL (3.50-5.40) Hemoglobin 6.6 g/dL (12.0-15.5) Hematocrit 20.5 % (36.0-47.0) Mean Corpuscular Volume 95 fL (79-100) Mean Corpuscular Hemoglobin 30 pg (25-35) Mean Corpuscular Hemoglobin Concent 32 g/dL (31-37) Red Cell Distribution Width 19.8 % (11.5-14.5) Platelet Count 159 x10^3/uL (140-400) Neutrophils (%) (Auto) 80 % (31-73) Lymphocytes (%) (Auto) 9 % (24-48) Monocytes (%) (Auto) 8 % (0-9) Eosinophils (%) (Auto) 2 % (0-3) Basophils (%) (Auto) 1 % (0-3) Neutrophils # (Auto) 5.4 x10^3uL (1.8-7.7) Lymphocytes # (Auto) 0.6 x10^3/uL (1.0-4.8) Monocytes # (Auto) 0.5 x10^3/uL (0.0-1.1) Eosinophils # (Auto) 0.2 x10^3/uL (0.0-0.7) Basophils # (Auto) 0.1 x10^3/uL (0.0-0.2) Sodium Level 144 mmol/L (136-145) Potassium Level 3.2 mmol/L (3.5-5.1) Chloride Level 107 mmol/L (98-107) Carbon Dioxide Level 30 mmol/L (21-32) Anion Gap 7 (6-14) Blood Urea Nitrogen 41 mg/dL (7-20) Creatinine 1.3 mg/dL (0.6-1.0) Estimated GFR (Cockcroft-Gault) 40.4 Glucose Level 113 mg/dL (70-99) Calcium Level 7.9 mg/dL (8.5-10.1) Test 01/21/19 12:49 01/21/19 17:13 01/21/19 23:45 01/22/19 06:09 Glucose (Fingerstick) 114 mg/dL (70-99) 100 mg/dL (70-99) 93 mg/dL (70-99) 105 mg/dL (70-99) Test 01/22/19 06:15 01/22/19 12:02 White Blood Count 8.1 x10^3/uL (4.0-11.0) Red Blood Count 3.08 x10^6/uL (3.50-5.40) Hemoglobin 9.3 g/dL (12.0-15.5) Hematocrit 28.5 % (36.0-47.0) Mean Corpuscular Volume 92 fL (79-100) Mean Corpuscular Hemoglobin 30 pg (25-35) Mean Corpuscular Hemoglobin Concent 33 g/dL (31-37) Red Cell Distribution Width 18.8 % (11.5-14.5) Platelet Count 172 x10^3/uL (140-400) Neutrophils (%) (Auto) 80 % (31-73) Lymphocytes (%) (Auto) 9 % (24-48) Monocytes (%) (Auto) 8 % (0-9) Eosinophils (%) (Auto) 2 % (0-3) Basophils (%) (Auto) 1 % (0-3) Neutrophils # (Auto) 6.4 x10^3uL (1.8-7.7) Lymphocytes # (Auto) 0.8 x10^3/uL (1.0-4.8) Monocytes # (Auto) 0.6 x10^3/uL (0.0-1.1) Eosinophils # (Auto) 0.2 x10^3/uL (0.0-0.7) Basophils # (Auto) 0.1 x10^3/uL (0.0-0.2) Sodium Level 145 mmol/L (136-145) Potassium Level 3.7 mmol/L (3.5-5.1) Chloride Level 109 mmol/L (98-107) Carbon Dioxide Level 29 mmol/L (21-32) Anion Gap 7 (6-14) Blood Urea Nitrogen 43 mg/dL (7-20) Creatinine 1.2 mg/dL (0.6-1.0) Estimated GFR (Cockcroft-Gault) 44.3 Glucose Level 116 mg/dL (70-99) Calcium Level 8.3 mg/dL (8.5-10.1) Magnesium Level 2.1 mg/dL (1.8-2.4) Glucose (Fingerstick) 112 mg/dL (70-99) Laboratory Tests Test 01/21/19 17:13 01/21/19 23:45 01/22/19 06:09 01/22/19 06:15 Glucose (Fingerstick) 100 mg/dL (70-99) 93 mg/dL (70-99) 105 mg/dL (70-99) White Blood Count 8.1 x10^3/uL (4.0-11.0) Red Blood Count 3.08 x10^6/uL (3.50-5.40) Hemoglobin 9.3 g/dL (12.0-15.5) Hematocrit 28.5 % (36.0-47.0) Mean Corpuscular Volume 92 fL (79-100) Mean Corpuscular Hemoglobin 30 pg (25-35) Mean Corpuscular Hemoglobin Concent 33 g/dL (31-37) Red Cell Distribution Width 18.8 % (11.5-14.5) Platelet Count 172 x10^3/uL (140-400) Neutrophils (%) (Auto) 80 % (31-73) Lymphocytes (%) (Auto) 9 % (24-48) Monocytes (%) (Auto) 8 % (0-9) Eosinophils (%) (Auto) 2 % (0-3) Basophils (%) (Auto) 1 % (0-3) Neutrophils # (Auto) 6.4 x10^3uL (1.8-7.7) Lymphocytes # (Auto) 0.8 x10^3/uL (1.0-4.8) Monocytes # (Auto) 0.6 x10^3/uL (0.0-1.1) Eosinophils # (Auto) 0.2 x10^3/uL (0.0-0.7) Basophils # (Auto) 0.1 x10^3/uL (0.0-0.2) Sodium Level 145 mmol/L (136-145) Potassium Level 3.7 mmol/L (3.5-5.1) Chloride Level 109 mmol/L (98-107) Carbon Dioxide Level 29 mmol/L (21-32) Anion Gap 7 (6-14) Blood Urea Nitrogen 43 mg/dL (7-20) Creatinine 1.2 mg/dL (0.6-1.0) Estimated GFR (Cockcroft-Gault) 44.3 Glucose Level 116 mg/dL (70-99) Calcium Level 8.3 mg/dL (8.5-10.1) Magnesium Level 2.1 mg/dL (1.8-2.4) Test 01/22/19 12:02 Glucose (Fingerstick) 112 mg/dL (70-99) Microbiology 01/16/19 Blood Culture - Final, Complete NO GROWTH AFTER 5 DAYS 01/19/19 Anaerobic/Aerobic Culture, Resulted Pending 01/19/19 Anaerobic Culture Result 1 (BASIA), Resulted Pending 01/19/19 Aerobic Culture, Resulted Pending 01/19/19 Aerobic Culture Result 1 (BASIA), Resulted Pending 01/19/19 Gram Stain - Final, Resulted 01/19/19 Gram Stain Result 1 (BASIA) - Final, Resulted 01/19/19 Gram Stain Result 2 (BASIA) - Final, Resulted 01/20/19 - Final, Complete 01/20/19 - Final, Complete 01/20/19 - Final, Complete 01/20/19 Gram Stain Evaluation - Final, Complete 01/20/19 Sputum Culture - Final, Complete 01/20/19 Sputum Result 1 - Final, Complete 01/19/19 AFB Specimen Processing Tissue - Final, Resulted 01/19/19 Acid Fast Bacilli Culture, Resulted Pending 01/19/19 Gram Stain - Final, Resulted 01/16/19 Urine Culture - Final, Complete 01/16/19 Urine Culture Result 1 (BASIA) - Final, Complete Medications Current Medications Propofol (Diprivan) 200 mg 1X ONCE IV ; Start 01/15/19 at 15:00; Stop 01/15/19 at 15:06; Status DC Midazolam HCl (Versed) 5 mg 1X ONCE IV Last administered on 01/15/19at 15:59; Start 01/15/19 at 15:00; Stop 01/15/19 at 15:01; Status DC Propofol 50 ml @ As Directed STK-MED ONCE IV ; Start 01/15/19 at 15:02; Stop 01/15/19 at 15:03; Status DC Midazolam HCl 100 ml @ 0 mls/hr 1X ONCE IV Last administered on 01/15/19at 15:19; Start 01/15/19 at 15:15; Stop 01/15/19 at 15:16; Status DC Calcium Gluconate (Calcium Gluconate) 1,000 mg 1X ONCE IVP Last administered on 01/15/19at 15:58; Start 01/15/19 at 15:30; Stop 01/15/19 at 15:31; Status DC Norepinephrine Bitartrate 250 ml @ 1.875 mls/ hr CONT PRN IV SEE I/O RECORD Last administered on 01/20/19at 04:15; Start 01/15/19 at 17:00; Stop 01/22/19 at 10:32; Status DC Piperacillin Sod/ Tazobactam Sod (Zosyn Per Pharmacy) 1 each PRN DAILY PRN MC SEE COMMENTS; Start 01/15/19 at 17:15 Albuterol Sulfate (Ventolin Neb Soln) 2.5 mg PRN Q4HRS PRN NEB SHORTNESS OF BREATH; Start 01/15/19 at 17:15 Midazolam HCl 100 ml @ 5 mls/hr CONT PRN IV SEE I/O RECORD Last administered on 01/19/19at 05:03; Start 01/15/19 at 17:15; Stop 01/20/19 at 09:46; Status DC Fentanyl Citrate (Fentanyl 2ml Vial) 50 mcg PRN Q2HR PRN IV PAIN Last administered on 01/22/19at 15:23; Start 01/15/19 at 17:15 Piperacillin Sod/ Tazobactam Sod 2.25 gm/Sodium Chloride 50 ml @ 100 mls/hr Q6HRS IV Last administered on 01/19/19at 05:59; Start 01/15/19 at 18:00; Stop 01/19/19 at 11:25; Status DC Albuterol Sulfate (Ventolin Neb Soln) 2.5 mg RTBID NEB Last administered on 01/22/19at 08:39; Start 01/15/19 at 20:00 Amiodarone HCl (Cordarone) 200 mg DAILY PO Last administered on 01/22/19at 08:32; Start 01/16/19 at 09:00 Aspirin (Dieudonne Aspirin) 325 mg DAILY PO Last administered on 01/22/19at 08:33; Start 01/16/19 at 09:00 Atorvastatin Calcium (Lipitor) 10 mg HS PO Last administered on 01/21/19at 21:06; Start 01/15/19 at 21:00 Carvedilol (Coreg) 3.125 mg BIDWMEALS PO ; Start 01/15/19 at 18:30; Stop 01/18/19 at 14:39; Status DC Docusate Sodium (Colace) 100 mg PRN DAILY PRN PO hard stools; Start 01/15/19 at 17:15 Furosemide (Lasix) 40 mg [id number] PO ; Start 01/16/19 at 09:00; Stop 01/16/19 at 10:50; Status DC Mirtazapine (Remeron) 7.5 mg DAILY PO ; Start 01/16/19 at 09:00; Stop 01/16/19 at 09:00; Status DC Tramadol HCl (Ultram) 25 mg PRN Q6HRS PRN PO MODERATE PAIN; Start 01/15/19 at 17:15 Acetaminophen (Tylenol) 650 mg PRN Q4HRS PRN PO FEVER Last administered on 01/15/19at 20:57; Start 01/15/19 at 17:15; Stop 01/16/19 at 08:07; Status DC Ascorbic Acid (Vitamin C) 500 mg DAILY PO Last administered on 01/22/19at 08:32; Start 01/16/19 at 09:00 Magnesium Hydroxide (Milk Of Magnesia) 2,400 mg PRN DAILY PRN PO CONSTIPATION; Start 01/15/19 at 18:45 Ondansetron HCl (Zofran Odt) 4 mg PRN Q6HRS PRN PO NAUSEA/VOMITING; Start 01/15/19 at 18:45 Pantoprazole Sodium (Protonix) 40 mg DAILYAC PO Last administered on 01/18/19at 07:52; Start 01/16/19 at 07:30; Stop 01/18/19 at 08:02; Status DC Quetiapine Fumarate (SEROquel) 12.5 mg PRN Q6HRS PRN PO AGITATION Last administered on 01/22/19 09:54; Start 01/15/19 at 17:15 Quetiapine Fumarate (SEROquel) 25 mg QHS PO Last administered on 01/17/19at 21:08; Start 01/15/19 at 21:00; Stop 01/18/19 at 14:39; Status DC Thiamine Mononitrate (Vitamin B-1) 100 mg DAILY PO Last administered on 01/22/19at 08:33; Start 01/16/19 at 09:00 Vancomycin HCl (Vanco Per Pharmacy) 1 each PRN DAILY PRN MC SEE COMMENTS Last administered on 01/15/19at 21:10; Start 01/15/19 at 17:45; Stop 01/16/19 at 08:06; Status DC Piperacillin Sod/ Tazobactam Sod (Zosyn Per Pharmacy) 1 each PRN DAILY PRN MC SEE COMMENTS; Start 01/15/19 at 17:45; Status UNV Insulin Human Lispro (HumaLOG) 0-5 UNITS TIDWMEALS SQ ; Start 01/16/19 at 08:00; Stop 01/16/19 at 08:00; Status DC Dextrose (Dextrose 50%-Water Syringe) 12.5 gm PRN Q15MIN PRN IV SEE COMMENTS; Start 01/15/19 at 17:45 Vancomycin HCl 2 gm/Sodium Chloride 500 ml @ 250 mls/hr 1X ONCE IV Last administered on 01/15/19at 20:56; Start 01/15/19 at 20:00; Stop 01/15/19 at 21:59; Status DC Insulin Human Lispro (HumaLOG) 0-5 UNITS Q6HRS SQ Last administered on 01/20/19at 12:47; Start 01/16/19 at 00:00 Vancomycin HCl 1.25 gm/Sodium Chloride 250 ml @ 167 mls/hr Q24H IV ; Start at 21:00; Stop 01/16/19 at 21:00; Status DC Vancomycin HCl (Vancomycin Trough Level) 1 each 1X ONCE MC ; Start 01/17/19 at 20:30; Stop 01/17/19 at 20:31; Status Cancel Mirtazapine (Remeron) 7.5 mg QHS PO Last administered on 01/21/19 21:06; Start 01/16/19 at 21:00 Linezolid/Dextrose 300 ml @ 300 mls/hr Q12HR IV Last administered on 01/19/19at 21:52; Start 01/16/19 at 09:00; Stop 01/20/19 at 08:26; Status DC Acetaminophen (Tylenol) 650 mg PRN Q4HRS PRN PEG MILD PAIN / TEMP Last administered on 01/16/19at 08:09; Start 01/16/19 at 08:15 Famotidine (Pepcid) 20 mg QHS PO Last administered on 01/17/19at 21:08; Start 01/16/19 at 21:00; Stop 01/18/19 at 13:06; Status DC Heparin Sodium (Porcine) (Heparin Sodium) 5,000 unit Q12HR SQ Last administered on 01/18/19at 13:18; Start 01/16/19 at 21:00; Stop 01/19/19 at 20:15; Status DC Sodium Chloride 500 ml @ 250 mls/hr Q1HR PRN IV HYPOTENTION; Start 01/17/19 at 19:15 Pantoprazole Sodium (PROTONIX VIAL for IV PUSH) 40 mg DAILYAC IVP Last administered on 01/22/19at 08:33; Start 01/19/19 at 07:30; Stop 01/22/19 at 11:39; Status DC Piperacillin Sod/ Tazobactam Sod 3.375 gm/Sodium Chloride 50 ml @ 100 mls/hr Q6HRS IV Last administered on 01/22/19at 12:04; Start 01/19/19 at 12:00 Magnesium Sulfate 50 ml @ 25 mls/hr 1X ONCE IV Last administered on 01/19/19at 15:04; Start 01/19/19 at 12:30; Stop 01/19/19 at 14:29; Status DC Dobutamine HCl/ Dextrose 250 ml @ 6.302 mls/ hr CONT PRN IV SEE I/O RECORD Last administered on 01/21/19at 07:23; Start 01/19/19 at 16:00 Heparin Sodium (Porcine) (Heparin Sodium) 5,000 unit Q12HR SQ Last administered on 01/22/19 09:13; Start 01/20/19 at 01:45 Multivitamins (Thera-Plus Oral Liquid) 5 ml DAILY PEG Last administered on 01/22/19 08:33; Start 01/21/19 at 09:00 Potassium Chloride (KCl Oral Soln) 40 meq 1X ONCE PO Last administered on 01/21/19at 11:56; Start 01/21/19 at 11:00; Stop 01/21/19 at 11:01; Status DC Lansoprazole (Prevacid) 30 mg DAILY NG ; Start 01/23/19 at 09:00 Active Scripts Active Reported Vitamin C (Ascorbate Calcium) 500 Mg Tablet 500 Mg PO DAILY Aspirin 325 Mg Tablet 1 Tab PO DAILY Coreg (Carvedilol) 3.125 Mg Tablet 3.125 Mg PO BIDWMEALS Zofran (Ondansetron Hcl) 4 Mg Tablet 4 Mg PO PRN Q6HRS PRN B-1 (Thiamine HCl) 100 Mg Tablet 100 Mg PO DAILY Docusate Sodium 100 Mg Capsule 100 Mg PO PRN PRN Acetaminophen 160 Mg/5 Ml Oral.susp 650 Mg PO PRN Q4HRS PRN Milk Of Magnesia (Magnesium Hydroxide) 2,400 Mg/10 Ml Oral.susp 2,400 Mg PO PRN PRN Mirtazapine 7.5 Mg Tablet 7.5 Mg PO QHS Albuterol Sulfate Neb Soln (Albuterol Sulfate) 2.5 Mg/3 Ml Vial.neb 2.5 Mg NEB BID Atorvastatin Calcium 10 Mg Tablet 10 Mg PO HS Lasix (Furosemide) 40 Mg Tablet 40 Mg PO BID Protonix (Pantoprazole Sodium) 20 Mg Tablet.dr 40 Mg PO DAILY Amiodarone Hcl 200 Mg Tablet 1 Tab PO DAILY Seroquel (Quetiapine Fumarate) 25 Mg Tablet 25 Mg PO HS Tramadol Hcl 50 Mg Tablet 25 Mg PO Q6HRS PRN Seroquel (Quetiapine Fumarate) 25 Mg Tablet 12.5 Mg PO PRN Q6HRS PRN Vitals/I & O Vital Sign - Last 24 Hours 01/21/19 01/21/19 01/21/19 01/21/19 17:00 18:00 19:00 19:18 Temp 98.2 98.2 Pulse 100 100 103 Resp 26 18 28 B/P (MAP) 110/55 (73) 107/59 (75) 107/63 (78) Pulse Ox 100 100 98 O2 Delivery Nasal Cannula Nasal Cannula Nasal Cannula Nasal Cannula O2 Flow Rate 5.0 01/21/19 01/21/19 01/21/19 01/21/19 19:35 20:00 20:00 21:00 Temp 98.7 98.7 Pulse 107 98 Resp 28 30 B/P (MAP) 110/63 (79) 99/53 (68) Pulse Ox 100 98 98 O2 Delivery Nasal Cannula Nasal Cannula Nasal Cannula Nasal Cannula O2 Flow Rate 5.0 5.0 01/21/19 01/21/19 01/21/19 01/21/19 22:00 23:00 23:59 23:59 Temp 98.2 98.2 Pulse 101 98 101 Resp 30 28 28 B/P (MAP) 99/55 (70) 99/50 (66) 109/48 (68) Pulse Ox 98 100 99 O2 Delivery Nasal Cannula Nasal Cannula Mechanical Ventilator BiPAP/CPAP 01/22/19 01/22/19 01/22/19 01/22/19 01:00 02:00 03:00 04:00 Temp 99.0 99.0 Pulse 100 100 100 98 Resp 28 24 24 29 B/P (MAP) 104/57 (73) 106/57 (73) 113/88 (96) 104/59 (74) Pulse Ox 100 100 100 99 O2 Delivery Nasal Cannula Nasal Cannula Nasal Cannula BiPAP/CPAP O2 Flow Rate 5.0 5.0 5.0 5.0 01/22/19 01/22/19 01/22/19 01/22/19 04:00 05:06 06:00 07:00 Temp 100.3 100.3 Pulse 85 95 102 Resp 24 24 39 B/P (MAP) 110/60 (77) 107/46 (66) 120/28 (58) Pulse Ox 100 100 100 O2 Delivery Mechanical Ventilator Nasal Cannula Nasal Cannula Nasal Cannula O2 Flow Rate 5.0 5.0 5.0 01/22/19 01/22/19 01/22/19 01/22/19 08:00 08:00 08:00 08:32 Pulse 100 98 Resp 34 B/P (MAP) 100/57 (71) 100/57 Pulse Ox 100 O2 Delivery Nasal Cannula Nasal Cannula O2 Flow Rate 5.0 5.0 5.0 01/22/19 01/22/19 01/22/19 01/22/19 08:41 09:00 10:00 11:00 Temp 99.3 99.3 Pulse 100 98 90 Resp 29 32 25 B/P (MAP) 104/57 (73) 106/56 (73) 107/55 (72) Pulse Ox 98 100 100 100 O2 Delivery Nasal Cannula Nasal Cannula Nasal Cannula Nasal Cannula O2 Flow Rate 4.0 5.0 5.0 5.0 01/22/19 01/22/19 01/22/19 01/22/19 12:00 12:31 13:00 15:23 Temp 98.6 98.6 Pulse 90 88 Resp 25 24 B/P (MAP) 104/57 (73) 102/53 (69) Pulse Ox 100 100 100 100 O2 Delivery Nasal Cannula BiPAP/CPAP Nasal Cannula Nasal Cannula O2 Flow Rate 5.0 5.0 5.0 Intake and Output 0 01/21/19 01/21/19 01/22/19 14:59 22:59 06:59 Intake Total 1264 ml 1785 ml 1236 ml Output Total 785 ml 650 ml 775 ml Balance 479 ml 1135 ml 461 ml JEWEL PINEDA MD January 22, 2019 16:15
[2019-01-22] MEDS: MIRTAZAPINE 7.5 MG TABLET. PO SCH (20:57)
[2019-01-22] MEDS: ACETAMINOPHEN 650 MG/20.3 ML SOLUTION. PEG PRN (20:57)
[2019-01-22] MEDS: ATORVASTATIN CALCIUM 10 MG TABLET. PO SCH (20:57)
[2019-01-22] MEDS: traMADol 50 MG TABLET PO PRN (23:36)
[2019-01-23] VITALS (25 sets, daily range): BP systolic 86–124; BP diastolic 44–67
[2019-01-23 05:02] LABS: BASO # 0.1 x10^3/uL (0.0-0.2); BASO % 1 % (0-3); EOS # 0.2 x10^3/uL (0.0-0.7); EOS % 3 % (0-3); HEMATOCRIT 27.8 % (36.0-47.0); HEMOGLOBIN 8.9 g/dL (12.0-15.5); LYMPH # 0.7 x10^3/uL (1.0-4.8); LYMPH % 10 % (24-48); MEAN CORPUSCULAR HEMOGLOBIN 30 pg (25-35); MEAN CORPUSCULAR HGB CONC 32 g/dL (31-37); MEAN CORPUSCULAR VOLUME 93 fL (79-100); MONO # 0.8 x10^3/uL (0.0-1.1); MONO % 11 % (0-9); NEUT # 4.9 x10^3uL (1.8-7.7); NEUT % 74 % (31-73); PLATELET COUNT 175 x10^3/uL (140-400); RED BLOOD COUNT 2.98 x10^6/uL (3.50-5.40); RED CELL DISTRIBUTION WIDTH 18.9 % (11.5-14.5); WHITE BLOOD COUNT 6.6 x10^3/uL (4.0-11.0)
[2019-01-23 05:27] LABS: CALCIUM 8.3 mg/dL (8.5-10.1); CREATININE 1.3 mg/dL (0.6-1.0); GFR 40.4; POTASSIUM 3.3 mmol/L (3.5-5.1)
[2019-01-23] MEDS: PIPERACILLIN/TAZOBACTAM 3.375 GM in IV NORMAL SALINE 50ML 50 ML IV SCH ×4 (05:55→23:05)
[2019-01-23] MEDS: INSULIN LISPRO 300 UNITS/3 ML INSULN.PEN. SQ SCH ×4 (05:56→23:05)
--- NOTE | 2019-01-23 06:53 | NUR ---
NURSING NOTE Pt coughing in room, gagged on her thick, clear/yellow secretions. Pt had small amount of emesis. Pt cleaned up, gown and linen changed at this time. Pt does continue to be confused and tearful about her current health situation and not being able to eat. Explained to pt ST will be by today to reeval. Pt still upset. Report to be given to Jordana LOO.
[2019-01-23] MEDS: ALBUTEROL SULFATE 2.5 MG/3 ML NEBU. NEB SCH ×2 (08:15→20:10)
--- NOTE | 2019-01-23 08:23 | PDOC ---
Infectious Disease Note Subjective: Subjective Pt remains confused No fever last 24 hours Still on Dobutamine but off Levophed gtt Tube feedings via Dobbhoff 40 ml/hr Supplemental O2 Diarrhea ROS: ROS Negative except for above. Vital Signs: Vital Signs Vital Signs Date Time Temp Pulse Resp B/P (MAP) Pulse Ox O2 Delivery O2 Flow Rate FiO2 01/23/19 07:38 Nasal Cannula 4.0 01/23/19 07:00 98.2 107 24 111/63 (79) 98 98.2 Physical Exam: PHYSICAL EXAM GENERAL: Sitting in the chair, conversing with someone not seen, mitts HEENT: Oral cavity dry, edentulous NECK: Supple, no JVP, no lymphadenopathy. LUNGS: Decreased breath sounds. HEART: S1, S2 regular. ABDOMEN: Soft, nontender. Rectal tube in place : Kahn EXTREMITIES: No edema or cyanosis. SCDs SKIN: No rash. sacrococcygeal area of stage 3 decubitus. NEUROLOGIC: Alert and confused LUE-PICC clean Medications: Inpatient Meds: Current Medications Medications (Trade) Dose Ordered Sig/Destiny Start Time Stop Time Status Last Admin Dose Admin Acetaminophen (Tylenol) 650 mg PRN Q4HRS PRN 01/16/19 08:15 01/22/19 20:57 650 MG Albuterol Sulfate (Ventolin Neb Soln) 2.5 mg RTBID 01/15/19 20:00 01/22/19 20:02 2.5 MG Amiodarone HCl (Cordarone) 200 mg DAILY 01/16/19 09:00 01/22/19 08:32 200 MG Ascorbic Acid (Vitamin C) 500 mg DAILY 01/16/19 09:00 01/22/19 08:32 500 MG Aspirin (Dieudonne Aspirin) 325 mg DAILY 01/16/19 09:00 01/22/19 08:33 325 MG Atorvastatin Calcium (Lipitor) 10 mg HS 01/15/19 21:00 01/22/19 20:57 10 MG Calcium Gluconate (Calcium Gluconate) 1,000 mg 1X ONCE 01/15/19 15:30 01/15/19 15:31 DC 01/15/19 15:58 1,000 MG Carvedilol (Coreg) 3.125 mg BIDWMEALS 01/15/19 18:30 01/18/19 14:39 DC Dextrose (Dextrose 50%-Water Syringe) 12.5 gm PRN Q15MIN PRN 01/15/19 17:45 Dobutamine HCl/ Dextrose 250 ml @ 6.302 mls/ hr CONT PRN 01/19/19 16:00 01/21/19 07:23 6.302 MLS/HR Docusate Sodium (Colace) 100 mg PRN DAILY PRN 01/15/19 17:15 Famotidine (Pepcid) 20 mg QHS 01/16/19 21:00 01/18/19 13:06 DC 01/17/19 21:08 20 MG Fentanyl Citrate (Fentanyl 2ml Vial) 50 mcg PRN Q2HR PRN 01/15/19 17:15 01/22/19 20:05 50 MCG Furosemide (Lasix) 40 mg [id number] 01/16/19 09:00 01/16/19 10:50 DC Heparin Sodium (Porcine) (Heparin Sodium) 5,000 unit Q12HR 01/20/19 01:45 01/22/19 20:58 5,000 UNIT Insulin Human Lispro (HumaLOG) 0-5 UNITS Q6HRS 01/16/19 00:00 01/20/19 12:47 2 UNITS Lansoprazole (Prevacid) 30 mg DAILY 01/23/19 09:00 Linezolid/Dextrose 300 ml @ 300 mls/hr Q12HR 01/16/19 09:00 01/20/19 08:26 DC 01/19/19 21:52 300 MLS/HR Magnesium Hydroxide (Milk Of Magnesia) 2,400 mg PRN DAILY PRN 01/15/19 18:45 Magnesium Sulfate 50 ml @ 25 mls/hr 1X ONCE 01/19/19 12:30 01/19/19 14:29 DC 01/19/19 15:04 25 MLS/HR Midazolam HCl 100 ml @ 5 mls/hr CONT PRN 01/15/19 17:15 01/20/19 09:46 DC 01/19/19 05:03 8 MLS/HR Midazolam HCl (Versed) 5 mg 1X ONCE 01/15/19 15:00 01/15/19 15:01 DC 01/15/19 15:59 5 MG Mirtazapine (Remeron) 7.5 mg QHS 01/16/19 21:00 01/22/19 20:57 7.5 MG Multivitamins (Thera-Plus Oral Liquid) 5 ml DAILY 01/21/19 09:00 01/22/19 08:33 5 ML Norepinephrine Bitartrate 250 ml @ 1.875 mls/ hr CONT PRN 01/15/19 17:00 01/22/19 10:32 DC 01/20/19 04:15 13.125 MLS/HR Ondansetron HCl (Zofran Odt) 4 mg PRN Q6HRS PRN 01/15/19 18:45 Pantoprazole Sodium (PROTONIX VIAL for IV PUSH) 40 mg DAILYAC 01/19/19 07:30 01/22/19 11:39 DC 01/22/19 08:33 40 MG Pantoprazole Sodium (Protonix) 40 mg DAILYAC 01/16/19 07:30 01/18/19 08:02 DC 01/18/19 07:52 40 MG Piperacillin Sod/ Tazobactam Sod (Zosyn Per Pharmacy) 1 each PRN DAILY PRN 01/15/19 17:45 UNV Piperacillin Sod/ Tazobactam Sod 2.25 gm/Sodium Chloride 50 ml @ 100 mls/hr Q6HRS 01/15/19 18:00 01/19/19 11:25 DC 01/19/19 05:59 100 MLS/HR Piperacillin Sod/ Tazobactam Sod 3.375 gm/Sodium Chloride 50 ml @ 100 mls/hr Q6HRS 01/19/19 12:00 01/23/19 05:55 100 MLS/HR Potassium Chloride (KCl Oral Soln) 40 meq 1X ONCE 01/21/19 11:00 01/21/19 11:01 DC 01/21/19 11:56 40 MEQ Propofol 50 ml @ As Directed STK-MED ONCE 01/15/19 15:02 01/15/19 15:03 DC Propofol (Diprivan) 200 mg 1X ONCE 01/15/19 15:00 01/15/19 15:06 DC Quetiapine Fumarate (SEROquel) 25 mg QHS 01/15/19 21:00 01/18/19 14:39 DC 01/17/19 21:08 25 MG Sodium Chloride 500 ml @ 250 mls/hr Q1HR PRN 01/17/19 19:15 Thiamine Mononitrate (Vitamin B-1) 100 mg DAILY 01/16/19 09:00 01/22/19 08:33 100 MG Tramadol HCl (Ultram) 25 mg PRN Q6HRS PRN 01/15/19 17:15 01/22/19 23:36 25 MG Vancomycin HCl (Vanco Per Pharmacy) 1 each PRN DAILY PRN 01/15/19 17:45 01/16/19 08:06 DC 01/15/19 21:10 1 EACH Vancomycin HCl (Vancomycin Trough Level) 1 each 1X ONCE 01/17/19 20:30 01/17/19 20:31 Cancel Vancomycin HCl 1.25 gm/Sodium Chloride 250 ml @ 167 mls/hr Q24H 01/16/19 21:00 01/16/19 21:00 DC Vancomycin HCl 2 gm/Sodium Chloride 500 ml @ 250 mls/hr 1X ONCE 01/15/19 20:00 01/15/19 21:59 DC 01/15/19 20:56 250 MLS/HR Labs: Lab Laboratory Tests Test 01/22/19 12:02 01/22/19 17:38 01/22/19 23:41 01/23/19 04:30 Glucose (Fingerstick) 112 mg/dL (70-99) 100 mg/dL (70-99) 108 mg/dL (70-99) White Blood Count 6.6 x10^3/uL (4.0-11.0) Red Blood Count 2.98 x10^6/uL (3.50-5.40) Hemoglobin 8.9 g/dL (12.0-15.5) Hematocrit 27.8 % (36.0-47.0) Mean Corpuscular Volume 93 fL (79-100) Mean Corpuscular Hemoglobin 30 pg (25-35) Mean Corpuscular Hemoglobin Concent 32 g/dL (31-37) Red Cell Distribution Width 18.9 % (11.5-14.5) Platelet Count 175 x10^3/uL (140-400) Neutrophils (%) (Auto) 74 % (31-73) Lymphocytes (%) (Auto) 10 % (24-48) Monocytes (%) (Auto) 11 % (0-9) Eosinophils (%) (Auto) 3 % (0-3) Basophils (%) (Auto) 1 % (0-3) Neutrophils # (Auto) 4.9 x10^3uL (1.8-7.7) Lymphocytes # (Auto) 0.7 x10^3/uL (1.0-4.8) Monocytes # (Auto) 0.8 x10^3/uL (0.0-1.1) Eosinophils # (Auto) 0.2 x10^3/uL (0.0-0.7) Basophils # (Auto) 0.1 x10^3/uL (0.0-0.2) Sodium Level 148 mmol/L (136-145) Potassium Level 3.3 mmol/L (3.5-5.1) Chloride Level 113 mmol/L (98-107) Carbon Dioxide Level 29 mmol/L (21-32) Anion Gap 6 (6-14) Blood Urea Nitrogen 41 mg/dL (7-20) Creatinine 1.3 mg/dL (0.6-1.0) Estimated GFR (Cockcroft-Gault) 40.4 Glucose Level 104 mg/dL (70-99) Calcium Level 8.3 mg/dL (8.5-10.1) Objective: Assessment: Fever, resolved Left loculated effusion, s/p thoracentesis on 01/19. Cultures pending. sputum GPC 01/20 Respiratory failure s/p extubation Circulatory failure CHF/Cardiomyopathy A fib, on amiodarone DM Stage 3 , sacral ulcer Anemia s/p PRBCs Yeast in urine, 01/16 Dysphagia Encephalopathy improving Plan: Plan of Care cont Zosyn (since 01/15) Off Zyvox f/u cultures C diff if diarrhea worsens d/w JEFF NETTLES MD January 23, 2019 08:23
--- NOTE | 2019-01-23 08:39 | NUR ---
Dysphagia follow up. Impressions: Continued pharyngeal dysphagia w/ high risk of aspiration. While pt's voice appears improved w/ regards to intensity and quality, pt continues to demonstrate s/s aspiration w/ minimal trials of PO including ice chips and honey thick liquids. Pt demonstrated wet phonation and delayed cough w/ trials of small amounts honey thick liquids. S/s typically not observed w/ initial trial or but consistently noted by 3rd trial. No safe consistency identified. Recommendations: Continue NPO, continue tube feeding for nutrition/hydration/meds, continue ST f/u for dysphagia.
[2019-01-23] MEDS: ASPIRIN 325 MG TABLET PO SCH (08:53)
[2019-01-23] MEDS: LANSOPRAZOLE 30 MG TAB.RAP.DR NG SCH (08:53)
[2019-01-23] MEDS: ASCORBIC ACID 500 MG TABLET PO SCH (08:53)
[2019-01-23] MEDS: THIAMINE 100 MG TABLET. PO SCH (08:53)
[2019-01-23] MEDS: MULTIVITAMINS,THERAPEUTIC 5 ML ORAL LIQUID. PEG SCH (08:54)
[2019-01-23] MEDS: AMIODARONE HCL 200 MG TABLET. PO SCH (08:54)
[2019-01-23] MEDS: QUEtiapine 25 MG TABLET. PO PRN ×3 (08:54→20:14)
[2019-01-23] MEDS: traMADol 50 MG TABLET PO PRN ×3 (08:54→20:14)
[2019-01-23] MEDS: HEPARIN for SUB-Q USE 5,000 UNIT/ML VIAL. SQ SCH ×2 (09:01→20:16)
--- NOTE | 2019-01-23 09:48 | PDOC ---
PULMONARY PROGRESS NOTES Subjective EXTUBATED 01/20 Vitals Vital Signs Date Time Temp Pulse Resp B/P (MAP) Pulse Ox O2 Delivery O2 Flow Rate FiO2 01/23/19 09:00 94 22 124/56 (78) 100 Nasal Cannula 4.0 01/23/19 07:00 98.2 98.2 General: Alert, No acute distress Lungs: Clear Cardiovascular: S1, S2 Abdomen: Soft, Non-tender Extremities: Other (EDEMA) Skin: Warm Labs Laboratory Tests Test 01/21/19 12:49 01/21/19 17:13 01/21/19 23:45 01/22/19 06:09 Glucose (Fingerstick) 114 mg/dL (70-99) 100 mg/dL (70-99) 93 mg/dL (70-99) 105 mg/dL (70-99) Test 01/22/19 06:15 01/22/19 12:02 01/22/19 17:38 01/22/19 23:41 White Blood Count 8.1 x10^3/uL (4.0-11.0) Red Blood Count 3.08 x10^6/uL (3.50-5.40) Hemoglobin 9.3 g/dL (12.0-15.5) Hematocrit 28.5 % (36.0-47.0) Mean Corpuscular Volume 92 fL (79-100) Mean Corpuscular Hemoglobin 30 pg (25-35) Mean Corpuscular Hemoglobin Concent 33 g/dL (31-37) Red Cell Distribution Width 18.8 % (11.5-14.5) Platelet Count 172 x10^3/uL (140-400) Neutrophils (%) (Auto) 80 % (31-73) Lymphocytes (%) (Auto) 9 % (24-48) Monocytes (%) (Auto) 8 % (0-9) Eosinophils (%) (Auto) 2 % (0-3) Basophils (%) (Auto) 1 % (0-3) Neutrophils # (Auto) 6.4 x10^3uL (1.8-7.7) Lymphocytes # (Auto) 0.8 x10^3/uL (1.0-4.8) Monocytes # (Auto) 0.6 x10^3/uL (0.0-1.1) Eosinophils # (Auto) 0.2 x10^3/uL (0.0-0.7) Basophils # (Auto) 0.1 x10^3/uL (0.0-0.2) Sodium Level 145 mmol/L (136-145) Potassium Level 3.7 mmol/L (3.5-5.1) Chloride Level 109 mmol/L (98-107) Carbon Dioxide Level 29 mmol/L (21-32) Anion Gap 7 (6-14) Blood Urea Nitrogen 43 mg/dL (7-20) Creatinine 1.2 mg/dL (0.6-1.0) Estimated GFR (Cockcroft-Gault) 44.3 Glucose Level 116 mg/dL (70-99) Calcium Level 8.3 mg/dL (8.5-10.1) Magnesium Level 2.1 mg/dL (1.8-2.4) Glucose (Fingerstick) 112 mg/dL (70-99) 100 mg/dL (70-99) 108 mg/dL (70-99) Test 01/23/19 04:30 White Blood Count 6.6 x10^3/uL (4.0-11.0) Red Blood Count 2.98 x10^6/uL (3.50-5.40) Hemoglobin 8.9 g/dL (12.0-15.5) Hematocrit 27.8 % (36.0-47.0) Mean Corpuscular Volume 93 fL (79-100) Mean Corpuscular Hemoglobin 30 pg (25-35) Mean Corpuscular Hemoglobin Concent 32 g/dL (31-37) Red Cell Distribution Width 18.9 % (11.5-14.5) Platelet Count 175 x10^3/uL (140-400) Neutrophils (%) (Auto) 74 % (31-73) Lymphocytes (%) (Auto) 10 % (24-48) Monocytes (%) (Auto) 11 % (0-9) Eosinophils (%) (Auto) 3 % (0-3) Basophils (%) (Auto) 1 % (0-3) Neutrophils # (Auto) 4.9 x10^3uL (1.8-7.7) Lymphocytes # (Auto) 0.7 x10^3/uL (1.0-4.8) Monocytes # (Auto) 0.8 x10^3/uL (0.0-1.1) Eosinophils # (Auto) 0.2 x10^3/uL (0.0-0.7) Basophils # (Auto) 0.1 x10^3/uL (0.0-0.2) Sodium Level 148 mmol/L (136-145) Potassium Level 3.3 mmol/L (3.5-5.1) Chloride Level 113 mmol/L (98-107) Carbon Dioxide Level 29 mmol/L (21-32) Anion Gap 6 (6-14) Blood Urea Nitrogen 41 mg/dL (7-20) Creatinine 1.3 mg/dL (0.6-1.0) Estimated GFR (Cockcroft-Gault) 40.4 Glucose Level 104 mg/dL (70-99) Calcium Level 8.3 mg/dL (8.5-10.1) Laboratory Tests Test 01/22/19 12:02 01/22/19 17:38 01/22/19 23:41 01/23/19 04:30 Glucose (Fingerstick) 112 mg/dL (70-99) 100 mg/dL (70-99) 108 mg/dL (70-99) White Blood Count 6.6 x10^3/uL (4.0-11.0) Red Blood Count 2.98 x10^6/uL (3.50-5.40) Hemoglobin 8.9 g/dL (12.0-15.5) Hematocrit 27.8 % (36.0-47.0) Mean Corpuscular Volume 93 fL (79-100) Mean Corpuscular Hemoglobin 30 pg (25-35) Mean Corpuscular Hemoglobin Concent 32 g/dL (31-37) Red Cell Distribution Width 18.9 % (11.5-14.5) Platelet Count 175 x10^3/uL (140-400) Neutrophils (%) (Auto) 74 % (31-73) Lymphocytes (%) (Auto) 10 % (24-48) Monocytes (%) (Auto) 11 % (0-9) Eosinophils (%) (Auto) 3 % (0-3) Basophils (%) (Auto) 1 % (0-3) Neutrophils # (Auto) 4.9 x10^3uL (1.8-7.7) Lymphocytes # (Auto) 0.7 x10^3/uL (1.0-4.8) Monocytes # (Auto) 0.8 x10^3/uL (0.0-1.1) Eosinophils # (Auto) 0.2 x10^3/uL (0.0-0.7) Basophils # (Auto) 0.1 x10^3/uL (0.0-0.2) Sodium Level 148 mmol/L (136-145) Potassium Level 3.3 mmol/L (3.5-5.1) Chloride Level 113 mmol/L (98-107) Carbon Dioxide Level 29 mmol/L (21-32) Anion Gap 6 (6-14) Blood Urea Nitrogen 41 mg/dL (7-20) Creatinine 1.3 mg/dL (0.6-1.0) Estimated GFR (Cockcroft-Gault) 40.4 Glucose Level 104 mg/dL (70-99) Calcium Level 8.3 mg/dL (8.5-10.1) Medications Active Scripts Medications Dose Route/Sig Max Daily Dose Days Date Category Vitamin C (Ascorbate Calcium) 500 Mg Tablet 500 Mg PO DAILY 01/15/19 Reported Aspirin 325 Mg Tablet 1 Tab PO DAILY 01/15/19 Reported Coreg (Carvedilol) 3.125 Mg Tablet 3.125 Mg PO BIDWMEALS 01/15/19 Reported Zofran (Ondansetron Hcl) 4 Mg Tablet 4 Mg PO PRN Q6HRS PRN 01/15/19 Reported B-1 (Thiamine HCl) 100 Mg Tablet 100 Mg PO DAILY 01/15/19 Reported Docusate Sodium 100 Mg Capsule 100 Mg PO PRN PRN 01/15/19 Reported Acetaminophen 160 Mg/5 Ml Oral.susp 650 Mg PO PRN Q4HRS PRN 01/15/19 Reported Milk Of Magnesia (Magnesium Hydroxide) 2,400 Mg/10 Ml Oral.susp 2,400 Mg PO PRN PRN 01/15/19 Reported Mirtazapine 7.5 Mg Tablet 7.5 Mg PO QHS 01/15/19 Reported Albuterol Sulfate Neb Soln (Albuterol Sulfate) 2.5 Mg/3 Ml Vial.neb 2.5 Mg NEB BID 01/15/19 Reported Atorvastatin Calcium 10 Mg Tablet 10 Mg PO HS 01/15/19 Reported Lasix (Furosemide) 40 Mg Tablet 40 Mg PO BID 01/15/19 Reported Protonix (Pantoprazole Sodium) 20 Mg Tablet.dr 40 Mg PO DAILY 01/15/19 Reported Amiodarone Hcl 200 Mg Tablet 1 Tab PO DAILY 01/15/19 Reported Seroquel (Quetiapine Fumarate) 25 Mg Tablet 25 Mg PO HS 01/15/19 Reported Tramadol Hcl 50 Mg Tablet 25 Mg PO Q6HRS PRN 01/15/19 Reported Seroquel (Quetiapine Fumarate) 25 Mg Tablet 12.5 Mg PO PRN Q6HRS PRN 01/15/19 Reported Comments CXR 01/22 IMPROVED LEFT EFFUSION/ MILD CHF, NO CHANGE Impression . IMPRESSION: 1. Acute respiratory failure, status post cardiopulmonary arrest, the patient transferred from [facility]. extubated, on canula 2. Acute on chronic systolic heart failure. EF 40% 3. Abnormal x-ray compatible with bilateral airspace disease in the lower lobes, pneumonia./ CHF, left effusion, s/p left tap 01/19 4. Type 2 diabetes. 5. Severe protein malnutrition. 6. Thrombocytopenia. 7. History of pacemaker implantation. 8. Prior history of gastric ulcers. 9. ABNORMAL CXR Plan . DOING WELL ON CANULA ON LOW DOSE DOBUTAMINE, TRY WEANING OFF TODAY CARDIOLOGY REC WILL CONTINUE SUPPORT DAUGHTER REPORTS MULTIPLE EPISODES OF APNEAS/ NO SLEEP STUDY IN PAST/ TALKED TO PT TODAY. SHE HAS REFUSED BIPAP WILL NEED SS OP IF SHE CAN TOLERATE BIPAP NPO SPEECH F/U MIKHAIL SORENSEN MD January 23, 2019 09:48
[2019-01-23] MEDS ORDERED: POTASSIUM CHL 20MEQ PREMIX 50 ML IV ONE (10:00)
--- NOTE | 2019-01-23 10:03 | PDOC ---
PROGRESS NOTES Subjective Subjective weaned off dobutamine. alert. discussed need to continue rectal tube with loose stools and coccyx wound. lab reviewed. potassium 3.3. discussed with nurse Objective Objective Vital Signs Date Time Temp Pulse Resp B/P (MAP) Pulse Ox O2 Delivery O2 Flow Rate FiO2 01/23/19 09:00 94 22 124/56 (78) 100 Nasal Cannula 4.0 01/23/19 07:00 98.2 98.2 Intake and Output 01/23/19 07:00 Intake Total 3503 ml Output Total 1935 ml Balance 1568 ml Intake Oral 0 ml IV Total 71 ml Tube Feeding 2529 ml Blood Product IV Normal Saline Flush 175 ml Other 728 ml Output Urine Total 935 ml Stool Total 1000 ml # Bowel Movements 1 Physical Exam Abdomen: Soft Heart: Regular rate, Normal S1, Normal S2 Extremities: No edema General: Alert HEENT: Atraumatic Lungs: Other (decreased breath sounds bilaterally) Neuro: Normal speech Psych/Mental Status: Mood NL Skin: No rashes Assessment Assessment Problems recent cardiopulmonary arrest. 2. Aspiration pneumonia suspected 3. Fever.resolved 4. Leukocytosis.resolved 5. Acute kidney injury most likely secondary to the cardiopulmonary arrest resolved 6. Hypotension resolved on dobutamine 7. Elevated liver function tests improved 8. Nonischemic cardiomyopathy with improvement of left ventricular ejection fraction 15-20% improved to 40%. 9. Acute on chronic hypoxic and hypercapnic respiratory failure weaned off the ventilator 10. 11. Acute on chronic systolic congestive heart failure compensated 12. Paroxysmal atrial fibrillation, but not a candidate for Pradaxa due to recent gastrointestinal bleed in 06/2018 from gastric ulcer. 13. Oropharyngeal dysphagia. NG tube feeding 14. Diabetes mellitus type 2. 15. Mild coronary artery disease. hypokalemia anemia Medical Problems: (1) Cardiac arrest Status: Acute (2) HCAP (healthcare-associated pneumonia) Status: Acute (3) Liver failure Status: Acute Plan Plan of Care replete kcl continue NGT [facility] with dr. kaur and cardiology Comment Review of Relevant I have reviewed the following items kristen (where applicable) has been applied. Labs Laboratory Tests Test 01/21/19 12:49 01/21/19 17:13 01/21/19 23:45 01/22/19 06:09 Glucose (Fingerstick) 114 mg/dL (70-99) 100 mg/dL (70-99) 93 mg/dL (70-99) 105 mg/dL (70-99) Test 01/22/19 06:15 01/22/19 12:02 01/22/19 17:38 01/22/19 23:41 White Blood Count 8.1 x10^3/uL (4.0-11.0) Red Blood Count 3.08 x10^6/uL (3.50-5.40) Hemoglobin 9.3 g/dL (12.0-15.5) Hematocrit 28.5 % (36.0-47.0) Mean Corpuscular Volume 92 fL (79-100) Mean Corpuscular Hemoglobin 30 pg (25-35) Mean Corpuscular Hemoglobin Concent 33 g/dL (31-37) Red Cell Distribution Width 18.8 % (11.5-14.5) Platelet Count 172 x10^3/uL (140-400) Neutrophils (%) (Auto) 80 % (31-73) Lymphocytes (%) (Auto) 9 % (24-48) Monocytes (%) (Auto) 8 % (0-9) Eosinophils (%) (Auto) 2 % (0-3) Basophils (%) (Auto) 1 % (0-3) Neutrophils # (Auto) 6.4 x10^3uL (1.8-7.7) Lymphocytes # (Auto) 0.8 x10^3/uL (1.0-4.8) Monocytes # (Auto) 0.6 x10^3/uL (0.0-1.1) Eosinophils # (Auto) 0.2 x10^3/uL (0.0-0.7) Basophils # (Auto) 0.1 x10^3/uL (0.0-0.2) Sodium Level 145 mmol/L (136-145) Potassium Level 3.7 mmol/L (3.5-5.1) Chloride Level 109 mmol/L (98-107) Carbon Dioxide Level 29 mmol/L (21-32) Anion Gap 7 (6-14) Blood Urea Nitrogen 43 mg/dL (7-20) Creatinine 1.2 mg/dL (0.6-1.0) Estimated GFR (Cockcroft-Gault) 44.3 Glucose Level 116 mg/dL (70-99) Calcium Level 8.3 mg/dL (8.5-10.1) Magnesium Level 2.1 mg/dL (1.8-2.4) Glucose (Fingerstick) 112 mg/dL (70-99) 100 mg/dL (70-99) 108 mg/dL (70-99) Test 01/23/19 04:30 White Blood Count 6.6 x10^3/uL (4.0-11.0) Red Blood Count 2.98 x10^6/uL (3.50-5.40) Hemoglobin 8.9 g/dL (12.0-15.5) Hematocrit 27.8 % (36.0-47.0) Mean Corpuscular Volume 93 fL (79-100) Mean Corpuscular Hemoglobin 30 pg (25-35) Mean Corpuscular Hemoglobin Concent 32 g/dL (31-37) Red Cell Distribution Width 18.9 % (11.5-14.5) Platelet Count 175 x10^3/uL (140-400) Neutrophils (%) (Auto) 74 % (31-73) Lymphocytes (%) (Auto) 10 % (24-48) Monocytes (%) (Auto) 11 % (0-9) Eosinophils (%) (Auto) 3 % (0-3) Basophils (%) (Auto) 1 % (0-3) Neutrophils # (Auto) 4.9 x10^3uL (1.8-7.7) Lymphocytes # (Auto) 0.7 x10^3/uL (1.0-4.8) Monocytes # (Auto) 0.8 x10^3/uL (0.0-1.1) Eosinophils # (Auto) 0.2 x10^3/uL (0.0-0.7) Basophils # (Auto) 0.1 x10^3/uL (0.0-0.2) Sodium Level 148 mmol/L (136-145) Potassium Level 3.3 mmol/L (3.5-5.1) Chloride Level 113 mmol/L (98-107) Carbon Dioxide Level 29 mmol/L (21-32) Anion Gap 6 (6-14) Blood Urea Nitrogen 41 mg/dL (7-20) Creatinine 1.3 mg/dL (0.6-1.0) Estimated GFR (Cockcroft-Gault) 40.4 Glucose Level 104 mg/dL (70-99) Calcium Level 8.3 mg/dL (8.5-10.1) Laboratory Tests Test 01/22/19 12:02 01/22/19 17:38 01/22/19 23:41 01/23/19 04:30 Glucose (Fingerstick) 112 mg/dL (70-99) 100 mg/dL (70-99) 108 mg/dL (70-99) White Blood Count 6.6 x10^3/uL (4.0-11.0) Red Blood Count 2.98 x10^6/uL (3.50-5.40) Hemoglobin 8.9 g/dL (12.0-15.5) Hematocrit 27.8 % (36.0-47.0) Mean Corpuscular Volume 93 fL (79-100) Mean Corpuscular Hemoglobin 30 pg (25-35) Mean Corpuscular Hemoglobin Concent 32 g/dL (31-37) Red Cell Distribution Width 18.9 % (11.5-14.5) Platelet Count 175 x10^3/uL (140-400) Neutrophils (%) (Auto) 74 % (31-73) Lymphocytes (%) (Auto) 10 % (24-48) Monocytes (%) (Auto) 11 % (0-9) Eosinophils (%) (Auto) 3 % (0-3) Basophils (%) (Auto) 1 % (0-3) Neutrophils # (Auto) 4.9 x10^3uL (1.8-7.7) Lymphocytes # (Auto) 0.7 x10^3/uL (1.0-4.8) Monocytes # (Auto) 0.8 x10^3/uL (0.0-1.1) Eosinophils # (Auto) 0.2 x10^3/uL (0.0-0.7) Basophils # (Auto) 0.1 x10^3/uL (0.0-0.2) Sodium Level 148 mmol/L (136-145) Potassium Level 3.3 mmol/L (3.5-5.1) Chloride Level 113 mmol/L (98-107) Carbon Dioxide Level 29 mmol/L (21-32) Anion Gap 6 (6-14) Blood Urea Nitrogen 41 mg/dL (7-20) Creatinine 1.3 mg/dL (0.6-1.0) Estimated GFR (Cockcroft-Gault) 40.4 Glucose Level 104 mg/dL (70-99) Calcium Level 8.3 mg/dL (8.5-10.1) Microbiology 01/16/19 Blood Culture - Final, Complete NO GROWTH AFTER 5 DAYS 01/19/19 Anaerobic/Aerobic Culture, Resulted Pending 01/19/19 Anaerobic Culture Result 1 (BASIA), Resulted Pending 01/19/19 Aerobic Culture, Resulted Pending 01/19/19 Aerobic Culture Result 1 (BASIA), Resulted Pending 01/19/19 Gram Stain - Final, Resulted 01/19/19 Gram Stain Result 1 (BASIA) - Final, Resulted 01/19/19 Gram Stain Result 2 (BASIA) - Final, Resulted 01/20/19 - Final, Complete 01/20/19 - Final, Complete 01/20/19 - Final, Complete 01/20/19 Gram Stain Evaluation - Final, Complete 01/20/19 Sputum Culture - Final, Complete 01/20/19 Sputum Result 1 - Final, Complete 01/19/19 AFB Specimen Processing Tissue - Final, Resulted 01/19/19 Acid Fast Bacilli Culture, Resulted Pending 01/19/19 Gram Stain - Final, Resulted 01/16/19 Urine Culture - Final, Complete 01/16/19 Urine Culture Result 1 (BASIA) - Final, Complete Medications Current Medications Propofol (Diprivan) 200 mg 1X ONCE IV ; Start 01/15/19 at 15:00; Stop 01/15/19 at 15:06; Status DC Midazolam HCl (Versed) 5 mg 1X ONCE IV Last administered on 01/15/19at 15:59; Start 01/15/19 at 15:00; Stop 01/15/19 at 15:01; Status DC Propofol 50 ml @ As Directed STK-MED ONCE IV ; Start 01/15/19 at 15:02; Stop 01/15/19 at 15:03; Status DC Midazolam HCl 100 ml @ 0 mls/hr 1X ONCE IV Last administered on 01/15/19at 15:19; Start 01/15/19 at 15:15; Stop 01/15/19 at 15:16; Status DC Calcium Gluconate (Calcium Gluconate) 1,000 mg 1X ONCE IVP Last administered on 01/15/19at 15:58; Start 01/15/19 at 15:30; Stop 01/15/19 at 15:31; Status DC Norepinephrine Bitartrate 250 ml @ 1.875 mls/ hr CONT PRN IV SEE I/O RECORD Last administered on 01/20/19at 04:15; Start 01/15/19 at 17:00; Stop 01/22/19 at 10:32; Status DC Piperacillin Sod/ Tazobactam Sod (Zosyn Per Pharmacy) 1 each PRN DAILY PRN MC SEE COMMENTS; Start 01/15/19 at 17:15 Albuterol Sulfate (Ventolin Neb Soln) 2.5 mg PRN Q4HRS PRN NEB SHORTNESS OF BREATH; Start 01/15/19 at 17:15 Midazolam HCl 100 ml @ 5 mls/hr CONT PRN IV SEE I/O RECORD Last administered on 01/19/19at 05:03; Start 01/15/19 at 17:15; Stop 01/20/19 at 09:46; Status DC Fentanyl Citrate (Fentanyl 2ml Vial) 50 mcg PRN Q2HR PRN IV PAIN Last administered on 01/22/19at 20:05; Start 01/15/19 at 17:15 Piperacillin Sod/ Tazobactam Sod 2.25 gm/Sodium Chloride 50 ml @ 100 mls/hr Q6HRS IV Last administered on 01/19/19at 05:59; Start 01/15/19 at 18:00; Stop 01/19/19 at 11:25; Status DC Albuterol Sulfate (Ventolin Neb Soln) 2.5 mg RTBID NEB Last administered on 01/22/19at 20:02; Start 01/15/19 at 20:00 Amiodarone HCl (Cordarone) 200 mg DAILY PO Last administered on 01/23/19at 08:54; Start 01/16/19 at 09:00 Aspirin (Dieudonne Aspirin) 325 mg DAILY PO Last administered on 01/23/19 08:53; Start 01/16/19 at 09:00 Atorvastatin Calcium (Lipitor) 10 mg HS PO Last administered on 01/22/19 20:57; Start 01/15/19 at 21:00 Carvedilol (Coreg) 3.125 mg BIDWMEALS PO ; Start 01/15/19 at 18:30; Stop 01/18/19 at 14:39; Status DC Docusate Sodium (Colace) 100 mg PRN DAILY PRN PO hard stools; Start 01/15/19 at 17:15 Furosemide (Lasix) 40 mg BID94 PO ; Start 01/16/19 at 09:00; Stop 01/16/19 at 10:50; Status DC Mirtazapine (Remeron) 7.5 mg DAILY PO ; Start 01/16/19 at 09:00; Stop 01/16/19 at 09:00; Status DC Tramadol HCl (Ultram) 25 mg PRN Q6HRS PRN PO MODERATE PAIN Last administered on 01/23/19 08:54; Start 01/15/19 at 17:15 Acetaminophen (Tylenol) 650 mg PRN Q4HRS PRN PO FEVER Last administered on 01/15/19 20:57; Start 01/15/19 at 17:15; Stop 01/16/19 at 08:07; Status DC Ascorbic Acid (Vitamin C) 500 mg DAILY PO Last administered on 01/23/19 08:53; Start 01/16/19 at 09:00 Magnesium Hydroxide (Milk Of Magnesia) 2,400 mg PRN DAILY PRN PO CONSTIPATION; Start 01/15/19 at 18:45 Ondansetron HCl (Zofran Odt) 4 mg PRN Q6HRS PRN PO NAUSEA/VOMITING; Start 01/15/19 at 18:45 Pantoprazole Sodium (Protonix) 40 mg DAILYAC PO Last administered on 01/18/19 07:52; Start 01/16/19 at 07:30; Stop 01/18/19 at 08:02; Status DC Quetiapine Fumarate (SEROquel) 12.5 mg PRN Q6HRS PRN PO AGITATION Last administered on 01/23/19 08:54; Start 01/15/19 at 17:15 Quetiapine Fumarate (SEROquel) 25 mg QHS PO Last administered on 01/17/19at 21:08; Start 01/15/19 at 21:00; Stop 01/18/19 at 14:39; Status DC Thiamine Mononitrate (Vitamin B-1) 100 mg DAILY PO Last administered on 01/23/19at 08:53; Start 01/16/19 at 09:00 Vancomycin HCl (Vanco Per Pharmacy) 1 each PRN DAILY PRN MC SEE COMMENTS Last administered on 01/15/19at 21:10; Start 01/15/19 at 17:45; Stop 01/16/19 at 08:06; Status DC Piperacillin Sod/ Tazobactam Sod (Zosyn Per Pharmacy) 1 each PRN DAILY PRN MC SEE COMMENTS; Start 01/15/19 at 17:45; Status UNV Insulin Human Lispro (HumaLOG) 0-5 UNITS TIDWMEALS SQ ; Start 01/16/19 at 08:00; Stop 01/16/19 at 08:00; Status DC Dextrose (Dextrose 50%-Water Syringe) 12.5 gm PRN Q15MIN PRN IV SEE COMMENTS; Start 01/15/19 at 17:45 Vancomycin HCl 2 gm/Sodium Chloride 500 ml @ 250 mls/hr 1X ONCE IV Last administered on 01/15/19at 20:56; Start 01/15/19 at 20:00; Stop 01/15/19 at 21:59; Status DC Insulin Human Lispro (HumaLOG) 0-5 UNITS Q6HRS SQ Last administered on 01/20/19at 12:47; Start 01/16/19 at 00:00 Vancomycin HCl 1.25 gm/Sodium Chloride 250 ml @ 167 mls/hr Q24H IV ; Start 01/16/19 at 21:00; Stop 01/16/19 at 21:00; Status DC Vancomycin HCl (Vancomycin Trough Level) 1 each 1X ONCE MC ; Start 01/17/19 at 20:30; Stop 01/17/19 at 20:31; Status Cancel Mirtazapine (Remeron) 7.5 mg QHS PO Last administered on 01/22/19 20:57; Start 01/16/19 at 21:00 Linezolid/Dextrose 300 ml @ 300 mls/hr Q12HR IV Last administered on 01/19/19at 21:52; Start 01/16/19 at 09:00; Stop 01/20/19 at 08:26; Status DC Acetaminophen (Tylenol) 650 mg PRN Q4HRS PRN PEG MILD PAIN / TEMP Last administered on 01/22/19at 20:57; Start 01/16/19 at 08:15 Famotidine (Pepcid) 20 mg QHS PO Last administered on 01/17/19 21:08; Start 01/16/19 at 21:00; Stop 01/18/19 at 13:06; Status DC Heparin Sodium (Porcine) (Heparin Sodium) 5,000 unit Q12HR SQ Last administered on 01/18/19 13:18; Start 01/16/19 at 21:00; Stop 01/19/19 at 20:15; Status DC Sodium Chloride 500 ml @ 250 mls/hr Q1HR PRN IV HYPOTENTION; Start 01/17/19 at 19:15 Pantoprazole Sodium (PROTONIX VIAL for IV PUSH) 40 mg DAILYAC IVP Last administered on 01/22/19 08:33; Start 01/19/19 at 07:30; Stop 01/22/19 at 11:39; Status DC Piperacillin Sod/ Tazobactam Sod 3.375 gm/Sodium Chloride 50 ml @ 100 mls/hr Q6HRS IV Last administered on 01/23/19 05:55; Start 01/19/19 at 12:00 Magnesium Sulfate 50 ml @ 25 mls/hr 1X ONCE IV Last administered on 01/19/19 15:04; Start 01/19/19 at 12:30; Stop 01/19/19 at 14:29; Status DC Dobutamine HCl/ Dextrose 250 ml @ 6.302 mls/ hr CONT PRN IV SEE I/O RECORD Last administered on 01/21/19 07:23; Start 01/19/19 at 16:00 Heparin Sodium (Porcine) (Heparin Sodium) 5,000 unit Q12HR SQ Last administered on 01/23/19 09:01; Start 01/20/19 at 01:45 Multivitamins (Thera-Plus Oral Liquid) 5 ml DAILY PEG Last administered on 01/23/19 08:54; Start 01/21/19 at 09:00 Potassium Chloride (KCl Oral Soln) 40 meq 1X ONCE PO Last administered on 01/21/19 11:56; Start 01/21/19 at 11:00; Stop 01/21/19 at 11:01; Status DC Lansoprazole (Prevacid) 30 mg DAILY NG Last administered on 01/23/19 08:53; Start 01/23/19 at 09:00 Active Scripts Active Reported Vitamin C (Ascorbate Calcium) 500 Mg Tablet 500 Mg PO DAILY Aspirin 325 Mg Tablet 1 Tab PO DAILY Coreg (Carvedilol) 3.125 Mg Tablet 3.125 Mg PO BIDWMEALS Zofran (Ondansetron Hcl) 4 Mg Tablet 4 Mg PO PRN Q6HRS PRN B-1 (Thiamine HCl) 100 Mg Tablet 100 Mg PO DAILY Docusate Sodium 100 Mg Capsule 100 Mg PO PRN PRN Acetaminophen 160 Mg/5 Ml Oral.susp 650 Mg PO PRN Q4HRS PRN Milk Of Magnesia (Magnesium Hydroxide) 2,400 Mg/10 Ml Oral.susp 2,400 Mg PO PRN PRN Mirtazapine 7.5 Mg Tablet 7.5 Mg PO QHS Albuterol Sulfate Neb Soln (Albuterol Sulfate) 2.5 Mg/3 Ml Vial.neb 2.5 Mg NEB BID Atorvastatin Calcium 10 Mg Tablet 10 Mg PO HS Lasix (Furosemide) 40 Mg Tablet 40 Mg PO BID Protonix (Pantoprazole Sodium) 20 Mg Tablet.dr 40 Mg PO DAILY Amiodarone Hcl 200 Mg Tablet 1 Tab PO DAILY Seroquel (Quetiapine Fumarate) 25 Mg Tablet 25 Mg PO HS Tramadol Hcl 50 Mg Tablet 25 Mg PO Q6HRS PRN Seroquel (Quetiapine Fumarate) 25 Mg Tablet 12.5 Mg PO PRN Q6HRS PRN Vitals/I & O Vital Sign - Last 24 Hours 01/22/19 01/22/19 01/22/19 01/22/19 11:00 12:00 12:00 12:31 Temp 99.3 99.3 Pulse 90 90 Resp 25 25 B/P (MAP) 107/55 (72) 104/57 (73) Pulse Ox 100 100 100 O2 Delivery Nasal Cannula Bi-pap Nasal Cannula BiPAP/CPAP O2 Flow Rate 5.0 5.0 5.0 01/22/19 01/22/19 01/22/19 01/22/19 13:00 14:00 15:00 15:23 Temp 98.6 98.6 Pulse 88 90 90 Resp 24 25 31 B/P (MAP) 102/53 (69) 104/57 (73) 109/58 (75) Pulse Ox 100 100 100 100 O2 Delivery Nasal Cannula Nasal Cannula Nasal Cannula Nasal Cannula O2 Flow Rate 5.0 5.0 5.0 5.0 01/22/19 01/22/19 01/22/19 01/22/19 15:53 16:00 16:00 16:29 Temp 98.6 98.6 Pulse 88 Resp 23 B/P (MAP) 109/56 (73) Pulse Ox 100 100 100 O2 Delivery Nasal Cannula Bi-pap BiPAP/CPAP O2 Flow Rate 5.0 5.0 01/22/19 01/22/19 01/22/19 01/22/19 17:00 18:00 19:00 19:30 Pulse 90 90 94 Resp 20 23 B/P (MAP) 112/58 (76) 119/68 (85) 104/55 (71) Pulse Ox 100 100 94 O2 Delivery BiPAP/CPAP BiPAP/CPAP Nasal Cannula Nasal Cannula O2 Flow Rate 4.0 4.0 01/22/19 01/22/19 01/22/19 01/22/19 20:01 20:03 20:05 20:35 Temp 100.8 100.8 Pulse 91 Resp B/P (MAP) 95/50 (65) Pulse Ox 99 100 O2 Delivery Nasal Cannula Nasal Cannula Nasal Cannula Nasal Cannula O2 Flow Rate 4.0 4.0 4.0 4.0 01/22/19 01/22/19 01/22/19 01/22/19 21:00 22:00 23:00 23:36 Pulse 96 99 91 Resp 24 B/P (MAP) 101/47 (65) 110/65 (80) 118/65 (82) Pulse Ox 96 97 100 O2 Delivery Nasal Cannula Nasal Cannula Nasal Cannula Nasal Cannula O2 Flow Rate 4.0 4.0 4.0 4.0 01/22/19 01/23/19 01/23/19 01/23/19 23:45 00:00 00:36 01:00 Temp 98.5 98.5 Pulse 94 89 Resp 23 B/P (MAP) 104/50 (68) 100/47 (64) Pulse Ox 98 100 O2 Delivery Nasal Cannula Nasal Cannula Nasal Cannula Nasal Cannula O2 Flow Rate 4.0 4.0 4.0 4.0 01/23/19 01/23/19 01/23/19 01/23/19 02:00 03:00 04:00 04:00 Temp 98.7 98.7 Pulse 91 88 90 Resp 24 22 26 B/P (MAP) 103/58 (73) 111/51 (71) 103/67 (79) Pulse Ox 98 97 100 O2 Delivery Nasal Cannula Nasal Cannula Nasal Cannula Nasal Cannula O2 Flow Rate 4.0 4.0 4.0 4.0 01/23/19 01/23/19 01/23/19 01/23/19 05:00 06:00 07:00 07:38 Temp 98.2 98.2 Pulse 95 96 107 Resp 19 21 24 B/P (MAP) 122/64 (83) 113/64 (80) 111/63 (79) Pulse Ox 100 100 98 O2 Delivery Nasal Cannula Nasal Cannula Nasal Cannula Nasal Cannula O2 Flow Rate 4.0 4.0 4.0 4.0 01/23/19 01/23/19 01/23/19 01/23/19 08:00 08:54 08:54 09:00 Pulse 94 107 94 Resp 21 22 B/P (MAP) 119/54 (75) 111/63 124/56 (78) Pulse Ox 100 98 100 O2 Delivery Nasal Cannula Nasal Cannula Nasal Cannula O2 Flow Rate 4.0 4.0 4.0 Intake and Output 01/22/19 01/22/19 01/23/19 15:00 23:00 07:00 Intake Total 853 ml 923 ml 1727 ml Output Total 335 ml 1300 ml 300 ml Balance 518 ml -377 ml 1427 ml CHRISTINA CHAVARRIA MD January 23, 2019 10:03
[2019-01-23] MEDS ORDERED: HEPA50003 SQ (10:11)
[2019-01-23] MEDS ORDERED: PIPE2.255 MC (10:11)
[2019-01-23] MEDS ORDERED: Multivitamins,Therapeutic Liq PEG (10:11)
--- NOTE | 2019-01-23 10:12 | SNU/HH DC ---
DISCHARGE ORDERS DISCHARGE INFORMATION: DISCHARGE DATE: January 23, 2019 FINAL DIAGNOSIS Problems Medical Problems: (1) Cardiac arrest Status: Acute (2) HCAP (healthcare-associated pneumonia) Status: Acute (3) Liver failure Status: Acute CONDITION ON DISCHARGE: Stable CODE STATUS: Code Status: Full POST DISCHARGE ORDERS: DIET AFTER DISCHARGE: continue NG tube feeding and water flushes OTHER ORDERS: continue rectal tube. consult wound care nurse TREATMENT/EQUIPMENT ORDERS: RESPIRATORY EQUIPMENT NEEDED: Oxygen Physical Therapy For: Evalulation/Treatment Occupational Therapy For: Evaluation/Treatment DISCHARGE MEDICATIONS: Home Meds Active Scripts [Multivitamins,Therapeutic Liq] 5 ML LIQUID No Conflict Check, 5 ML PEG DAILY for MVI, #30 Prov:CHRISTINA CHAVARRIA MD 01/23/19 Heparin Sodium,Porcine (HEPARIN SODIUM) 5,000 Unit/1 Ml Vial, 5000 UNIT SQ Q12HR for dvt prophylaxis, #30 EACH Prov:CHRISTINA CHAVARRIA MD 01/23/19 Piperacillin Sodium/Tazobactam (ZOSYN 2.25 GRAM VIAL) 2.25 Gm Vial, 1 EACH MC PRN DAILY PRN for SEE COMMENTS for 10 Days, EACH ID doctor to decide on duration of iv zosyn Prov:CHRISTINA CHAVARRIA MD 01/23/19 Reported Medications Ascorbate Calcium (VITAMIN C) 500 Mg Tablet, 500 MG PO DAILY for vit, TAB 01/15/19 Aspirin (ASPIRIN) 325 Mg Tablet, 1 TAB PO DAILY for cardiac, #90 TAB 3 Refills 01/15/19 Carvedilol (COREG ) 3.125 Mg Tablet, 3.125 MG PO BIDWMEALS for CARDIAC, TAB 01/15/19 Ondansetron Hcl (ZOFRAN) 4 Mg Tablet, 4 MG PO PRN Q6HRS PRN for NAUSEA/VOMITING, TAB 01/15/19 Thiamine HCl (B-1) 100 Mg Tablet, 100 MG PO DAILY for vit, TAB 01/15/19 Docusate Sodium (DOCUSATE SODIUM) 100 Mg Capsule, 100 MG PO PRN PRN for CONSTIPATION, CAP 01/15/19 Acetaminophen (ACETAMINOPHEN) 160 Mg/5 Ml Oral.susp, 650 MG PO PRN Q4HRS PRN for FEVER, MISC 01/15/19 Magnesium Hydroxide (MILK OF MAGNESIA) 2,400 Mg/10 Ml Oral.susp, 2400 MG PO PRN PRN for CONSTIPATION, MISC 01/15/19 Mirtazapine (MIRTAZAPINE) 7.5 Mg Tablet, 7.5 MG PO QHS for depression, TAB 01/15/19 Albuterol Sulfate (ALBUTEROL SULFATE NEB SOLN) 2.5 Mg/3 Ml Vial.neb, 2.5 MG NEB BID for sooa, EACH 0 Refills 01/15/19 Atorvastatin Calcium (ATORVASTATIN CALCIUM) 10 Mg Tablet, 10 MG PO HS for calcium, #30 TAB 0 Refills 01/15/19 Furosemide (LASIX) 40 Mg Tablet, 40 MG PO BID for water, TAB 01/15/19 Pantoprazole Sodium (PROTONIX) 20 Mg Tablet.dr, 40 MG PO DAILY for gerd, TAB 01/15/19 Amiodarone Hcl (AMIODARONE HCL) 200 Mg Tablet, 1 TAB PO DAILY for heart rate, #90 TAB 3 Refills 01/15/19 Quetiapine Fumarate (SEROQUEL) 25 Mg Tablet, 25 MG PO HS for sleep, TAB 01/15/19 Tramadol Hcl (TRAMADOL HCL) 50 Mg Tablet, 25 MG PO Q6HRS PRN for PAIN, TAB 01/15/19 Quetiapine Fumarate (SEROQUEL) 25 Mg Tablet, 12.5 MG PO PRN Q6HRS PRN for AGITATION, TAB 01/15/19 CHRISTINA CHAVARRIA MD January 23, 2019 10:12
[2019-01-23] MEDS ORDERED: POTASSIUM CHLORIDE 20 MEQ/15 ML ORAL LIQUID. NG ONE (10:15)
--- NOTE | 2019-01-23 10:15 | NUR ---
pt receiving iv kcl 20 meq. pt did not receive po kcl as ordered by dr stone. pt awake in bed. pt restless and verbally talking in a loud voice for everyone to hear. pt upset about not getting any "iced tea" or feeling that "no one is paying attention" to her. ok with dr kaur and yenifer rader [facility]. pt has been weaned off of dobutamine.
--- NOTE | 2019-01-23 10:18 | PDOC ---
Provider Note Provider Note discharge summary dictated # [id number] CHRISTINA CHAVARRIA MD January 23, 2019 10:18
--- NOTE | 2019-01-23 10:33 | PDOC ---
Renal-Progress Notes Subjective Notes Notes NO NEW COMPLAINTS History of Present Illness Hx of present illness BETTER Vitals Vitals Vital Signs Date Time Temp Pulse Resp B/P (MAP) Pulse Ox O2 Delivery O2 Flow Rate FiO2 01/23/19 10:01 97 Nasal Cannula 4.0 01/23/19 10:00 89 22 106/52 (70) 01/23/19 07:00 98.2 98.2 Weight Weight [ ] I.O. Intake and Output Intake and Output 01/23/19 07:00 Intake Total 3503 ml Output Total 1935 ml Balance 1568 ml Intake Oral 0 ml IV Total 71 ml Tube Feeding 2529 ml Blood Product IV Normal Saline Flush 175 ml Other 728 ml Output Urine Total 935 ml Stool Total 1000 ml # Bowel Movements 1 Labs Labs Laboratory Tests Test 01/22/19 12:02 01/22/19 17:38 01/22/19 23:41 01/23/19 04:30 Glucose (Fingerstick) 112 mg/dL (70-99) 100 mg/dL (70-99) 108 mg/dL (70-99) White Blood Count 6.6 x10^3/uL (4.0-11.0) Red Blood Count 2.98 x10^6/uL (3.50-5.40) Hemoglobin 8.9 g/dL (12.0-15.5) Hematocrit 27.8 % (36.0-47.0) Mean Corpuscular Volume 93 fL (79-100) Mean Corpuscular Hemoglobin 30 pg (25-35) Mean Corpuscular Hemoglobin Concent 32 g/dL (31-37) Red Cell Distribution Width 18.9 % (11.5-14.5) Platelet Count 175 x10^3/uL (140-400) Neutrophils (%) (Auto) 74 % (31-73) Lymphocytes (%) (Auto) 10 % (24-48) Monocytes (%) (Auto) 11 % (0-9) Eosinophils (%) (Auto) 3 % (0-3) Basophils (%) (Auto) 1 % (0-3) Neutrophils # (Auto) 4.9 x10^3uL (1.8-7.7) Lymphocytes # (Auto) 0.7 x10^3/uL (1.0-4.8) Monocytes # (Auto) 0.8 x10^3/uL (0.0-1.1) Eosinophils # (Auto) 0.2 x10^3/uL (0.0-0.7) Basophils # (Auto) 0.1 x10^3/uL (0.0-0.2) Sodium Level 148 mmol/L (136-145) Potassium Level 3.3 mmol/L (3.5-5.1) Chloride Level 113 mmol/L (98-107) Carbon Dioxide Level 29 mmol/L (21-32) Anion Gap 6 (6-14) Blood Urea Nitrogen 41 mg/dL (7-20) Creatinine 1.3 mg/dL (0.6-1.0) Estimated GFR (Cockcroft-Gault) 40.4 Glucose Level 104 mg/dL (70-99) Calcium Level 8.3 mg/dL (8.5-10.1) Micro Micro Microbiology 01/16/19 Blood Culture - Final, Complete NO GROWTH AFTER 5 DAYS 01/19/19 Anaerobic/Aerobic Culture, Resulted Pending 01/19/19 Anaerobic Culture Result 1 (BASIA), Resulted Pending 01/19/19 Aerobic Culture, Resulted Pending 01/19/19 Aerobic Culture Result 1 (BASIA), Resulted Pending 01/19/19 Gram Stain - Final, Resulted 01/19/19 Gram Stain Result 1 (BASIA) - Final, Resulted 01/19/19 Gram Stain Result 2 (BASIA) - Final, Resulted 01/20/19 - Final, Complete 01/20/19 - Final, Complete 01/20/19 - Final, Complete 01/20/19 Gram Stain Evaluation - Final, Complete 01/20/19 Sputum Culture - Final, Complete 01/20/19 Sputum Result 1 - Final, Complete 01/19/19 AFB Specimen Processing Tissue - Final, Resulted 01/19/19 Acid Fast Bacilli Culture, Resulted Pending 01/19/19 Gram Stain - Final, Resulted 01/16/19 Urine Culture - Final, Complete 01/16/19 Urine Culture Result 1 (BASIA) - Final, Complete Review of Systems Constitutional: yes: other (UNABLE TO OBTAIN) Physical Exam General Appearance: no apparent distress Skin: warm Respiratory: decreased breath sounds Heart: S1S2 Abdomen: soft, bowel sounds present Genitourinary: bladder flat Extremities: pulses present Neurology: other (drowsy) Assessment Assessment IMP NICKIE-RESOLVING WITH CR DOWN TO 1.3 MILD HYPOKALEMIA-BETTER HYPONATREMIA-BETTER ACUTE RESP FAILURE CMI WITH EF OF 15-20% PLEURAL EFFUSION-S/P THORACENTESIS DYSPHAGIA PLAN TF AND WATER K REPLACEMENT INOTROPES NEEDED POSSIBLE TRANSFER TO [facility] TODAY WILL FOLLOW HERNANDEZ LOUIS MD January 23, 2019 10:33
--- NOTE | 2019-01-23 11:30 | NUR ---
SS following up with discharge planning. Discharge orders received for [facility], ; fax [phone]. SS phoned and faxed clinical updates and discharge orders to [facility]. [facility] reported that they are still awaiting insurance authorization from [facility] at this time but are hoping to have authorization today. Pt's RN notified. SS will await notification of insurance authorization from [facility] and will proceed accordingly.
[2019-01-23] MEDS: ACETAMINOPHEN 650 MG/20.3 ML SOLUTION. PEG PRN ×2 (14:44→20:14)
--- NOTE | 2019-01-23 17:30 | PDOC ---
PROGRESS NOTES Subjective Subjective Patient seen and examined. She remains off a ventilator. Is mildly more alert today. Objective Objective Vital Signs Date Time Temp Pulse Resp B/P (MAP) Pulse Ox O2 Delivery O2 Flow Rate FiO2 01/23/19 16:00 Nasal Cannula 2.0 01/23/19 16:00 77 18 86/50 (62) 100 01/23/19 15:00 97.8 97.8 Intake and Output 01/23/19 07:00 Intake Total 3503 ml Output Total 1935 ml Balance 1568 ml Intake Oral 0 ml IV Total 71 ml Tube Feeding 2529 ml Blood Product IV Normal Saline Flush 175 ml Other 728 ml Output Urine Total 935 ml Stool Total 1000 ml # Bowel Movements 1 Physical Exam Abdomen: Normal bowel sounds Heart: Regular rate General: mild distress Lungs: Other (mildly decreased breath sounds) Assessment Assessment Problems Medical Problems: (1) Cardiac arrest Status: Acute (2) HCAP (healthcare-associated pneumonia) Status: Acute (3) Liver failure Status: Acute 1. S/p cardiopulmonary arrest at [facility] 01/14/19. unclear rhythm, suspect hypoxia induced. Current EF better at 40%. Rhythm has been stable 2. Acute and chronic respiratory failure: multifactorial PNA, CHF, pleural effusion. post extubation. 3. Acute on chronic systolic heart failure: continue present treatment. 4. NICM; LVEF 15-20% now at 40% 5. NICKIE on CKD3; improving. 6. Anemia; previous hgb 6.6. Following lab. 7. Leukocytosis/fever/: ID following 8. Hypotension; BP improving. Weaning pressors 8. DM2/HLP 9. s/p lead-less PPM ([employer]). Device check with normal function- device doesn't collect episodes of AT/AF or VT/VF. No significant ectopy on tele 10. PAFIB; maintaining SR LBBB. Previously on Pradaxa, but discontinued due to GI bleed Comment Review of Relevant I have reviewed the following items kristen (where applicable) has been applied. Labs Laboratory Tests Test 01/21/19 23:45 01/22/19 06:09 01/22/19 06:15 01/22/19 12:02 Glucose (Fingerstick) 93 mg/dL (70-99) 105 mg/dL (70-99) 112 mg/dL (70-99) White Blood Count 8.1 x10^3/uL (4.0-11.0) Red Blood Count 3.08 x10^6/uL (3.50-5.40) Hemoglobin 9.3 g/dL (12.0-15.5) Hematocrit 28.5 % (36.0-47.0) Mean Corpuscular Volume 92 fL (79-100) Mean Corpuscular Hemoglobin 30 pg (25-35) Mean Corpuscular Hemoglobin Concent 33 g/dL (31-37) Red Cell Distribution Width 18.8 % (11.5-14.5) Platelet Count 172 x10^3/uL (140-400) Neutrophils (%) (Auto) 80 % (31-73) Lymphocytes (%) (Auto) 9 % (24-48) Monocytes (%) (Auto) 8 % (0-9) Eosinophils (%) (Auto) 2 % (0-3) Basophils (%) (Auto) 1 % (0-3) Neutrophils # (Auto) 6.4 x10^3uL (1.8-7.7) Lymphocytes # (Auto) 0.8 x10^3/uL (1.0-4.8) Monocytes # (Auto) 0.6 x10^3/uL (0.0-1.1) Eosinophils # (Auto) 0.2 x10^3/uL (0.0-0.7) Basophils # (Auto) 0.1 x10^3/uL (0.0-0.2) Sodium Level 145 mmol/L (136-145) Potassium Level 3.7 mmol/L (3.5-5.1) Chloride Level 109 mmol/L (98-107) Carbon Dioxide Level 29 mmol/L (21-32) Anion Gap 7 (6-14) Blood Urea Nitrogen 43 mg/dL (7-20) Creatinine 1.2 mg/dL (0.6-1.0) Estimated GFR (Cockcroft-Gault) 44.3 Glucose Level 116 mg/dL (70-99) Calcium Level 8.3 mg/dL (8.5-10.1) Magnesium Level 2.1 mg/dL (1.8-2.4) Test 01/22/19 17:38 01/22/19 23:41 01/23/19 04:30 01/23/19 12:34 Glucose (Fingerstick) 100 mg/dL (70-99) 108 mg/dL (70-99) 79 mg/dL (70-99) White Blood Count 6.6 x10^3/uL (4.0-11.0) Red Blood Count 2.98 x10^6/uL (3.50-5.40) Hemoglobin 8.9 g/dL (12.0-15.5) Hematocrit 27.8 % (36.0-47.0) Mean Corpuscular Volume 93 fL (79-100) Mean Corpuscular Hemoglobin 30 pg (25-35) Mean Corpuscular Hemoglobin Concent 32 g/dL (31-37) Red Cell Distribution Width 18.9 % (11.5-14.5) Platelet Count 175 x10^3/uL (140-400) Neutrophils (%) (Auto) 74 % (31-73) Lymphocytes (%) (Auto) 10 % (24-48) Monocytes (%) (Auto) 11 % (0-9) Eosinophils (%) (Auto) 3 % (0-3) Basophils (%) (Auto) 1 % (0-3) Neutrophils # (Auto) 4.9 x10^3uL (1.8-7.7) Lymphocytes # (Auto) 0.7 x10^3/uL (1.0-4.8) Monocytes # (Auto) 0.8 x10^3/uL (0.0-1.1) Eosinophils # (Auto) 0.2 x10^3/uL (0.0-0.7) Basophils # (Auto) 0.1 x10^3/uL (0.0-0.2) Sodium Level 148 mmol/L (136-145) Potassium Level 3.3 mmol/L (3.5-5.1) Chloride Level 113 mmol/L (98-107) Carbon Dioxide Level 29 mmol/L (21-32) Anion Gap 6 (6-14) Blood Urea Nitrogen 41 mg/dL (7-20) Creatinine 1.3 mg/dL (0.6-1.0) Estimated GFR (Cockcroft-Gault) 40.4 Glucose Level 104 mg/dL (70-99) Calcium Level 8.3 mg/dL (8.5-10.1) Laboratory Tests Test 01/22/19 17:38 5/5/19 23:41 01/23/19 04:30 01/23/19 12:34 Glucose (Fingerstick) 100 mg/dL (70-99) 108 mg/dL (70-99) 79 mg/dL (70-99) White Blood Count 6.6 x10^3/uL (4.0-11.0) Red Blood Count 2.98 x10^6/uL (3.50-5.40) Hemoglobin 8.9 g/dL (12.0-15.5) Hematocrit 27.8 % (36.0-47.0) Mean Corpuscular Volume 93 fL (79-100) Mean Corpuscular Hemoglobin 30 pg (25-35) Mean Corpuscular Hemoglobin Concent 32 g/dL (31-37) Red Cell Distribution Width 18.9 % (11.5-14.5) Platelet Count 175 x10^3/uL (140-400) Neutrophils (%) (Auto) 74 % (31-73) Lymphocytes (%) (Auto) 10 % (24-48) Monocytes (%) (Auto) 11 % (0-9) Eosinophils (%) (Auto) 3 % (0-3) Basophils (%) (Auto) 1 % (0-3) Neutrophils # (Auto) 4.9 x10^3uL (1.8-7.7) Lymphocytes # (Auto) 0.7 x10^3/uL (1.0-4.8) Monocytes # (Auto) 0.8 x10^3/uL (0.0-1.1) Eosinophils # (Auto) 0.2 x10^3/uL (0.0-0.7) Basophils # (Auto) 0.1 x10^3/uL (0.0-0.2) Sodium Level 148 mmol/L (136-145) Potassium Level 3.3 mmol/L (3.5-5.1) Chloride Level 113 mmol/L (98-107) Carbon Dioxide Level 29 mmol/L (21-32) Anion Gap 6 (6-14) Blood Urea Nitrogen 41 mg/dL (7-20) Creatinine 1.3 mg/dL (0.6-1.0) Estimated GFR (Cockcroft-Gault) 40.4 Glucose Level 104 mg/dL (70-99) Calcium Level 8.3 mg/dL (8.5-10.1) Microbiology 01/16/19 Blood Culture - Final, Complete NO GROWTH AFTER 5 DAYS 01/19/19 Anaerobic/Aerobic Culture, Resulted Pending 01/19/19 Anaerobic Culture Result 1 (BASIA), Resulted Pending 01/19/19 Aerobic Culture, Resulted Pending 01/19/19 Aerobic Culture Result 1 (BASIA), Resulted Pending 01/19/19 Gram Stain - Final, Resulted 01/19/19 Gram Stain Result 1 (BASIA) - Final, Resulted 01/19/19 Gram Stain Result 2 (BASIA) - Final, Resulted 01/20/19 - Final, Complete 01/20/19 - Final, Complete 01/20/19 - Final, Complete 01/20/19 Gram Stain Evaluation - Final, Complete 01/20/19 Sputum Culture - Final, Complete 01/20/19 Sputum Result 1 - Final, Complete 01/19/19 AFB Specimen Processing Tissue - Final, Resulted 01/19/19 Acid Fast Bacilli Culture, Resulted Pending 01/19/19 Gram Stain - Final, Resulted 01/16/19 Urine Culture - Final, Complete 01/16/19 Urine Culture Result 1 (BASIA) - Final, Complete Medications Current Medications Propofol (Diprivan) 200 mg 1X ONCE IV ; Start 01/15/19 at 15:00; Stop 01/15/19 at 15:06; Status DC Midazolam HCl (Versed) 5 mg 1X ONCE IV Last administered on 01/15/19at 15:59; Start 01/15/19 at 15:00; Stop 01/15/19 at 15:01; Status DC Propofol 50 ml @ As Directed STK-MED ONCE IV ; Start 01/15/19 at 15:02; Stop 01/15/19 at 15:03; Status DC Midazolam HCl 100 ml @ 0 mls/hr 1X ONCE IV Last administered on 01/15/19at 15:19; Start 01/15/19 at 15:15; Stop 01/15/19 at 15:16; Status DC Calcium Gluconate (Calcium Gluconate) 1,000 mg 1X ONCE IVP Last administered on 01/15/19at 15:58; Start 01/15/19 at 15:30; Stop 01/15/19 at 15:31; Status DC Norepinephrine Bitartrate 250 ml @ 1.875 mls/ hr CONT PRN IV SEE I/O RECORD Last administered on 01/20/19at 04:15; Start 01/15/19 at 17:00; Stop 01/22/19 at 10:32; Status DC Piperacillin Sod/ Tazobactam Sod (Zosyn Per Pharmacy) 1 each PRN DAILY PRN MC SEE COMMENTS; Start 01/15/19 at 17:15 Albuterol Sulfate (Ventolin Neb Soln) 2.5 mg PRN Q4HRS PRN NEB SHORTNESS OF BREATH; Start 01/15/19 at 17:15 Midazolam HCl 100 ml @ 5 mls/hr CONT PRN IV SEE I/O RECORD Last administered on 01/19/19at 05:03; Start 01/15/19 at 17:15; Stop 01/20/19 at 09:46; Status DC Fentanyl Citrate (Fentanyl 2ml Vial) 50 mcg PRN Q2HR PRN IV PAIN Last administered on 01/22/19at 20:05; Start 01/15/19 at 17:15 Piperacillin Sod/ Tazobactam Sod 2.25 gm/Sodium Chloride 50 ml @ 100 mls/hr Q6HRS IV Last administered on 01/19/19at 05:59; Start 01/15/19 at 18:00; Stop 01/19/19 at 11:25; Status DC Albuterol Sulfate (Ventolin Neb Soln) 2.5 mg RTBID NEB Last administered on 01/23/19at 08:15; Start 01/15/19 at 20:00 Amiodarone HCl (Cordarone) 200 mg DAILY PO Last administered on 01/23/19at 08:54; Start 01/16/19 at 09:00 Aspirin (Dieudonne Aspirin) 325 mg DAILY PO Last administered on 01/23/19at 08:53; Start 01/16/19 at 09:00 Atorvastatin Calcium (Lipitor) 10 mg HS PO Last administered on 01/22/19at 20:57; Start 01/15/19 at 21:00 Carvedilol (Coreg) 3.125 mg BIDWMEALS PO ; Start 01/15/19 at 18:30; Stop 01/18/19 at 14:39; Status DC Docusate Sodium (Colace) 100 mg PRN DAILY PRN PO hard stools; Start 01/15/19 at 17:15 Furosemide (Lasix) 40 mg BID94 PO ; Start 01/16/19 at 09:00; Stop 01/16/19 at 10:50; Status DC Mirtazapine (Remeron) 7.5 mg DAILY PO ; Start 01/16/19 at 09:00; Stop 01/16/19 at 09:00; Status DC Tramadol HCl (Ultram) 25 mg PRN Q6HRS PRN PO MODERATE PAIN Last administered on 01/23/19 14:44; Start 01/15/19 at 17:15 Acetaminophen (Tylenol) 650 mg PRN Q4HRS PRN PO FEVER Last administered on 01/15/19 20:57; Start 01/15/19 at 17:15; Stop 01/16/19 at 08:07; Status DC Ascorbic Acid (Vitamin C) 500 mg DAILY PO Last administered on 01/23/19 08:53; Start 01/16/19 at 09:00 Magnesium Hydroxide (Milk Of Magnesia) 2,400 mg PRN DAILY PRN PO CONSTIPATION; Start 01/15/19 at 18:45 Ondansetron HCl (Zofran Odt) 4 mg PRN Q6HRS PRN PO NAUSEA/VOMITING; Start 01/15/19 at 18:45 Pantoprazole Sodium (Protonix) 40 mg DAILYAC PO Last administered on 01/18/19 07:52; Start 01/16/19 at 07:30; Stop 01/18/19 at 08:02; Status DC Quetiapine Fumarate (SEROquel) 12.5 mg PRN Q6HRS PRN PO AGITATION Last administered on 01/23/19 14:43; Start 01/15/19 at 17:15 Quetiapine Fumarate (SEROquel) 25 mg QHS PO Last administered on 01/17/19 21:08; Start 01/15/19 at 21:00; Stop 01/18/19 at 14:39; Status DC Thiamine Mononitrate (Vitamin B-1) 100 mg DAILY PO Last administered on 01/23/19 08:53; Start 01/16/19 at 09:00 Vancomycin HCl (Vanco Per Pharmacy) 1 each PRN DAILY PRN MC SEE COMMENTS Last administered on 01/15/19at 21:10; Start 01/15/19 at 17:45; Stop 01/16/19 at 08:06; Status DC Piperacillin Sod/ Tazobactam Sod (Zosyn Per Pharmacy) 1 each PRN DAILY PRN MC SEE COMMENTS; Start 01/15/19 at 17:45; Status UNV Insulin Human Lispro (HumaLOG) 0-5 UNITS TIDWMEALS SQ ; Start 01/16/19 at 08:00; Stop 01/16/19 at 08:00; Status DC Dextrose (Dextrose 50%-Water Syringe) 12.5 gm PRN Q15MIN PRN IV SEE COMMENTS; Start 01/15/19 at 17:45 Vancomycin HCl 2 gm/Sodium Chloride 500 ml @ 250 mls/hr 1X ONCE IV Last administered on 01/15/19at 20:56; Start 01/15/19 at 20:00; Stop 01/15/19 at 21:59; Status DC Insulin Human Lispro (HumaLOG) 0-5 UNITS Q6HRS SQ Last administered on 01/20/19at 12:47; Start 01/16/19 at 00:00 Vancomycin HCl 1.25 gm/Sodium Chloride 250 ml @ 167 mls/hr Q24H IV ; Start 01/16/19 at 21:00; Stop 01/16/19 at 21:00; Status DC Vancomycin HCl (Vancomycin Trough Level) 1 each 1X ONCE MC ; Start 01/17/19 at 20:30; Stop 01/17/19 at 20:31; Status Cancel Mirtazapine (Remeron) 7.5 mg QHS PO Last administered on 01/22/19at 20:57; Start 01/16/19 at 21:00 Linezolid/Dextrose 300 ml @ 300 mls/hr Q12HR IV Last administered on 01/19/19at 21:52; Start 01/16/19 at 09:00; Stop 01/20/19 at 08:26; Status DC Acetaminophen (Tylenol) 650 mg PRN Q4HRS PRN PEG MILD PAIN / TEMP Last administered on 01/23/19at 14:44; Start 01/16/19 at 08:15 Famotidine (Pepcid) 20 mg QHS PO Last administered on 01/17/19at 21:08; Start 01/16/19 at 21:00; Stop 01/18/19 at 13:06; Status DC Heparin Sodium (Porcine) (Heparin Sodium) 5,000 unit Q12HR SQ Last administered on 01/18/19 13:18; Start 01/16/19 at 21:00; Stop 01/19/19 at 20:15; Status DC Sodium Chloride 500 ml @ 250 mls/hr Q1HR PRN IV HYPOTENTION; Start 01/17/19 at 19:15 Pantoprazole Sodium (PROTONIX VIAL for IV PUSH) 40 mg DAILYAC IVP Last administered on 01/22/19 08:33; Start 01/19/19 at 07:30; Stop 01/22/19 at 11:39; Status DC Piperacillin Sod/ Tazobactam Sod 3.375 gm/Sodium Chloride 50 ml @ 100 mls/hr Q6HRS IV Last administered on 01/23/19 12:33; Start 01/19/19 at 12:00 Magnesium Sulfate 50 ml @ 25 mls/hr 1X ONCE IV Last administered on 01/19/19 15:04; Start 01/19/19 at 12:30; Stop 01/19/19 at 14:29; Status DC Dobutamine HCl/ Dextrose 250 ml @ 6.302 mls/ hr CONT PRN IV SEE I/O RECORD Last administered on 01/21/19 07:23; Start 01/19/19 at 16:00 Heparin Sodium (Porcine) (Heparin Sodium) 5,000 unit Q12HR SQ Last administered on 01/23/19 09:01; Start 01/20/19 at 01:45 Multivitamins (Thera-Plus Oral Liquid) 5 ml DAILY PEG Last administered on 01/23/19 08:54; Start 01/21/19 at 09:00 Potassium Chloride (KCl Oral Soln) 40 meq 1X ONCE PO Last administered on 01/21/19 11:56; Start 01/21/19 at 11:00; Stop 01/21/19 at 11:01; Status DC Lansoprazole (Prevacid) 30 mg DAILY NG Last administered on 01/23/19 08:53; Start 01/23/19 at 09:00 Potassium Chloride/Water 50 ml @ 50 mls/hr 1X ONCE IV Last administered on 01/23/19 10:11; Start 01/23/19 at 10:00; Stop 01/23/19 at 10:59; Status DC Potassium Chloride (KCl Oral Soln) 20 meq 1X ONCE NG ; Start 01/23/19 at 10:15; Stop 01/23/19 at 10:16; Status DC Active Scripts Active [Multivitamins,Therapeutic Liq] 5 ML Liquid 5 Ml PEG DAILY Heparin Sodium (Heparin Sodium,Porcine) 5,000 Unit/1 Ml Vial 5,000 Unit SQ Q12HR Zosyn 2.25 Gram Vial (Piperacillin Sodium/Tazobactam) 2.25 Gm Vial 1 Each MC PRN DAILY PRN 10 Days ID doctor to decide on duration of iv zosyn Reported Vitamin C (Ascorbate Calcium) 500 Mg Tablet 500 Mg PO DAILY Aspirin 325 Mg Tablet 1 Tab PO DAILY Zofran (Ondansetron Hcl) 4 Mg Tablet 4 Mg PO PRN Q6HRS PRN B-1 (Thiamine HCl) 100 Mg Tablet 100 Mg PO DAILY Acetaminophen 160 Mg/5 Ml Oral.susp 650 Mg PO PRN Q4HRS PRN Mirtazapine 7.5 Mg Tablet 7.5 Mg PO QHS Albuterol Sulfate Neb Soln (Albuterol Sulfate) 2.5 Mg/3 Ml Vial.neb 2.5 Mg NEB BID Atorvastatin Calcium 10 Mg Tablet 10 Mg PO HS Protonix (Pantoprazole Sodium) 20 Mg Tablet.dr 40 Mg PO DAILY Amiodarone Hcl 200 Mg Tablet 1 Tab PO DAILY Seroquel (Quetiapine Fumarate) 25 Mg Tablet 25 Mg PO HS Tramadol Hcl 50 Mg Tablet 25 Mg PO Q6HRS PRN Seroquel (Quetiapine Fumarate) 25 Mg Tablet 12.5 Mg PO PRN Q6HRS PRN Vitals/I & O Vital Sign - Last 24 Hours 01/22/19 01/22/19 01/22/19 01/22/19 18:00 19:00 19:30 20:01 Temp 100.8 100.8 Pulse 90 94 91 Resp 27 23 25 B/P (MAP) 119/68 (85) 104/55 (71) 95/50 (65) Pulse Ox 100 94 99 O2 Delivery BiPAP/CPAP Nasal Cannula Nasal Cannula Nasal Cannula O2 Flow Rate 4.0 4.0 4.0 01/22/19 01/22/19 01/22/19 01/22/19 20:03 20:05 20:35 21:00 Pulse 96 Resp 24 18 22 B/P (MAP) 101/47 (65) Pulse Ox 100 96 O2 Delivery Nasal Cannula Nasal Cannula Nasal Cannula Nasal Cannula O2 Flow Rate 4.0 4.0 4.0 4.0 01/22/19 01/22/19 01/22/19 01/22/19 22:00 23:00 23:36 23:45 Pulse 99 91 Resp B/P (MAP) 110/65 (80) 118/65 (82) Pulse Ox 97 100 O2 Delivery Nasal Cannula Nasal Cannula Nasal Cannula Nasal Cannula O2 Flow Rate 4.0 4.0 4.0 4.0 01/23/19 01/23/19 01/23/19 01/23/19 00:00 01:00 02:00 03:00 Temp 98.5 98.5 Pulse 94 89 91 88 Resp B/P (MAP) 104/50 (68) 100/47 (64) 103/58 (73) 111/51 (71) Pulse Ox 98 100 98 97 O2 Delivery Nasal Cannula Nasal Cannula Nasal Cannula Nasal Cannula O2 Flow Rate 4.0 4.0 4.0 4.0 01/23/19 01/23/19 01/23/19 01/23/19 04:00 04:00 05:00 06:00 Temp 98.7 98.7 Pulse 90 95 96 Resp B/P (MAP) 103/67 (79) 122/64 (83) 113/64 (80) Pulse Ox 100 100 100 O2 Delivery Nasal Cannula Nasal Cannula Nasal Cannula Nasal Cannula O2 Flow Rate 4.0 4.0 4.0 4.0 01/23/19 01/23/19 01/23/19 01/23/19 07:00 07:38 08:00 08:54 Temp 98.2 98.2 Pulse 107 94 107 Resp B/P (MAP) 111/63 (79) 119/54 (75) 111/63 Pulse Ox 98 100 O2 Delivery Nasal Cannula Nasal Cannula Nasal Cannula O2 Flow Rate 4.0 4.0 4.0 01/23/19 01/23/19 01/23/19 01/23/19 08:54 09:00 10:00 10:01 Pulse 94 89 Resp B/P (MAP) 124/56 (78) 106/52 (70) Pulse Ox 98 100 97 97 O2 Delivery Nasal Cannula Nasal Cannula Nasal Cannula Nasal Cannula O2 Flow Rate 4.0 4.0 2.0 4.0 01/23/19 01/23/19 01/23/19 01/23/19 11:00 12:00 12:00 13:00 Temp 97.6 97.6 Pulse 91 84 82 Resp 21 22 20 B/P (MAP) 92/45 (61) 92/48 (63) 95/53 (67) Pulse Ox 97 97 100 O2 Delivery Nasal Cannula Nasal Cannula Nasal Cannula BiPAP/CPAP O2 Flow Rate 2.0 2.0 2.0 01/23/19 01/23/19 01/23/19 01/23/19 14:00 14:44 15:00 15:44 Temp 97.8 97.8 Pulse 87 87 Resp 18 18 17 B/P (MAP) 99/51 (67) 91/44 (60) Pulse Ox 96 96 100 98 O2 Delivery Nasal Cannula Nasal Cannula Nasal Cannula Nasal Cannula O2 Flow Rate 2.0 2.0 2.0 2.0 01/23/19 01/23/19 16:00 16:00 Pulse 77 Resp 18 B/P (MAP) 86/50 (62) Pulse Ox 100 O2 Delivery Nasal Cannula Nasal Cannula O2 Flow Rate 2.0 2.0 Intake and Output 01/22/19 01/22/19 01/23/19 15:00 23:00 07:00 Intake Total 853 ml 923 ml 1727 ml Output Total 335 ml 1300 ml 300 ml Balance 518 ml -377 ml 1427 ml JEWEL PINEDA MD January 23, 2019 17:30
--- NOTE | 2019-01-23 17:44 | NUR ---
no ok from pt insurance company. pt continues in icu. dr stone aware. pt refused bipap while sleeping for 2 hours this afternoon. pt continues to request food and drink constantly when awake. pt becomes emotional that we are not giving her what she wants.
--- NOTE | 2019-01-23 19:18 | DS ---
DATE OF DISCHARGE: 01/23/2019 CONSULTANTS: Dr. Nguyễn Sun, Dr. Kee, Dr. Hair, Dr. France and Dr. Colvin. FINAL DIAGNOSES: 1. Cardiopulmonary arrest. 2. Aspiration pneumonia, suspected. 3. Fever and leukocytosis, resolved. 4. Acute kidney injury, most likely secondary to the cardiopulmonary arrest, which resolved. 5. Hypotension, which resolved. 6. Elevated liver function test, improved. 7. Nonischemic cardiomyopathy with a left ventricular ejection fraction improving from 15-20% to 40% on recent echocardiogram. 8. Acute on chronic hypoxic and hypercapnic respiratory failure, weaned off the ventilator. 9. Acute on chronic systolic congestive heart failure, clinically compensated. 10. Paroxysmal atrial fibrillation, but not a candidate for Pradaxa due to recent gastrointestinal bleed in June 2018 from a gastric ulcer. 11. Oropharyngeal dysphagia, maintained on nasogastric tube feedings. 12. Diabetes mellitus, type 2. 13. Mild coronary artery disease. 14. Hyperkalemia. 15. Anemia. 16. Wounds. HOSPITAL COURSE: The patient is a 73-year-old white female, with a history of nonischemic cardiomyopathy with a previous left ventricular ejection fraction of 15-20% with history of chronic combined systolic and diastolic congestive heart failure, who has diabetes mellitus type 2, mild coronary artery disease with a previous history of a gastric ulcer with upper GI bleed in June 2018, who has paroxysmal atrial fibrillation, but Pradaxa was discontinued due to her GI bleed at that time, admitted to the [facility] on 12/19/2018 with altered mental status and acute hypoxic and hypercapnic respiratory failure and was intubated and had acute on chronic combined systolic and diastolic congestive heart failure with bilateral pleural effusion, status post thoracentesis and treated with diuretics. She had a sacral wound. She has chronic kidney disease and had acute kidney injury on top of that. She had severe protein calorie malnutrition, oropharyngeal dysphagia and maintained on nasogastric tube feedings. She was weaned off the ventilator, was on BiPAP at night. She had problems with hyponatremia and was admitted to [facility] on 01/10/2019. At [facility], she was found unresponsive with no pulse during the night on 01/15/2019 and was resuscitated, received CPR, epinephrine. She eventually had a pulse and sent to the [facility] where she was admitted on 01/15/2019, intubated on the ventilator following her cardiac arrest. She was seen by multiple consultants including Dr. Nguyễn Sun as she had some lung infiltrate consistent with aspiration pneumonia, seen by Dr. Kee in consultation for history of acute on chronic systolic congestive heart failure, which improved. She had acute kidney injury on top of chronic kidney disease and renal function did improve, seen by Dr. aHir in consultation. Seen by Dr. France and Dr. Colvin for pulmonary and she eventually was weaned off the ventilator. She did have problems with hypotension and she was weaned off her Levophed and weaned off the dobutamine this morning. An echocardiogram showed a left ventricular ejection fraction that had improved to 40%. She will be dismissed back to [facility] later today if it is okay with Dr. Colvin and the watch leader. She will be dismissed on Zosyn 3.375 g IV every 6 hours, Tylenol 650 mg every 4 hours p.r.n., albuterol nebulizer treatments every 4 hours p.r.n. and b.i.d., amiodarone 200 mg every day, vitamin C 500 mg every day, aspirin 325 mg every day, atorvastatin 10 mg at bedtime and also dismissed on heparin 5000 units subcutaneously every 12 hours, Prevacid 30 mg every day, mirtazapine 7.5 mg at bedtime, multiple vitamin every day, Zofran 4 mg every 6 hours p.r.n., thiamine 100 mg every day, Seroquel 12.5 mg every 6 hours p.r.n. and tramadol 25 mg every 6 hours p.r.n. pain. Continue with the nasogastric tube feedings. She was seen by Physical Therapy, Occupational Therapy and Speech Therapy. CHRISTINA CHAVARRIA MD DR: CHARIS/nicole JOB#: [id number] / [id number]
[2019-01-23] MEDS: MIRTAZAPINE 7.5 MG TABLET. PO SCH (20:14)
[2019-01-23] MEDS: ATORVASTATIN CALCIUM 10 MG TABLET. PO SCH (20:14)
[2019-01-23] MEDS: fentaNYL PF VIAL 100 MCG/2 ML VIAL IV PRN (23:31)
[2019-01-24] VITALS (18 sets, daily range): BP systolic 80–120; BP diastolic 45–77
[2019-01-24 05:34] LABS: CREATININE 1.4 mg/dL (0.6-1.0); GFR 37.1; MAGNESIUM 2.4 mg/dL (1.8-2.4); POTASSIUM 3.9 mmol/L (3.5-5.1)
[2019-01-24] MEDS: INSULIN LISPRO 300 UNITS/3 ML INSULN.PEN. SQ SCH ×3 (05:57→17:53)
[2019-01-24] MEDS: PIPERACILLIN/TAZOBACTAM 3.375 GM in IV NORMAL SALINE 50ML 50 ML IV SCH (05:57)
[2019-01-24] MEDS: ASCORBIC ACID 500 MG TABLET PO SCH (08:05)
[2019-01-24] MEDS: MULTIVITAMINS,THERAPEUTIC 5 ML ORAL LIQUID. PEG SCH (08:05)
[2019-01-24] MEDS: THIAMINE 100 MG TABLET. PO SCH (08:05)
[2019-01-24] MEDS: ASPIRIN 325 MG TABLET PO SCH (08:05)
[2019-01-24] MEDS: LANSOPRAZOLE 30 MG TAB.RAP.DR NG SCH (08:06)
[2019-01-24] MEDS: AMIODARONE HCL 200 MG TABLET. PO SCH (08:06)
[2019-01-24] MEDS: HEPARIN for SUB-Q USE 5,000 UNIT/ML VIAL. SQ SCH ×2 (08:07→22:54)
[2019-01-24] MEDS: ACETAMINOPHEN 650 MG/20.3 ML SOLUTION. PEG PRN (08:11)
[2019-01-24] MEDS: QUEtiapine 25 MG TABLET. PO PRN ×2 (08:11→17:16)
--- NOTE | 2019-01-24 08:13 | PDOC ---
Infectious Disease Note Subjective: Subjective Pt remains confused has been choking on pills on tube feedings Supplemental O2 off dobutamine going to be transferred [facility] Vital Signs: Vital Signs Vital Signs Date Time Temp Pulse Resp B/P (MAP) Pulse Ox O2 Delivery O2 Flow Rate FiO2 01/24/19 08:06 94 104/59 01/24/19 07:21 Nasal Cannula 2.0 01/24/19 07:00 98.2 18 97 98.2 Physical Exam: PHYSICAL EXAM GENERAL: alert awake, confused conversing with someone not seen, mitts HEENT: Oral cavity dry, edentulous Dobhoff in place NECK: Supple, no JVP, no lymphadenopathy. LUNGS: Decreased breath sounds. HEART: S1, S2 regular. ABDOMEN: Soft, nontender. Rectal tube in place : Kahn EXTREMITIES: No edema or cyanosis. SCDs SKIN: No rash. sacrococcygeal area of stage 3 decubitus. NEUROLOGIC: Alert and confused LUE-PICC clean Medications: Inpatient Meds: Current Medications Medications (Trade) Dose Ordered Sig/Destiny Start Time Stop Time Status Last Admin Dose Admin Acetaminophen (Tylenol) 650 mg PRN Q4HRS PRN 01/16/19 08:15 01/24/19 08:11 650 MG Albuterol Sulfate (Ventolin Neb Soln) 2.5 mg RTBID 01/15/19 20:00 01/23/19 20:10 2.5 MG Amiodarone HCl (Cordarone) 200 mg DAILY 01/16/19 09:00 01/24/19 08:06 200 MG Ascorbic Acid (Vitamin C) 500 mg DAILY 01/16/19 09:00 01/24/19 08:05 500 MG Aspirin (Dieudonne Aspirin) 325 mg DAILY 01/16/19 09:00 01/24/19 08:05 325 MG Atorvastatin Calcium (Lipitor) 10 mg HS 01/15/19 21:00 01/23/19 20:14 10 MG Calcium Gluconate (Calcium Gluconate) 1,000 mg 1X ONCE 01/15/19 15:30 01/15/19 15:31 DC 01/15/19 15:58 1,000 MG Carvedilol (Coreg) 3.125 mg BIDWMEALS 01/15/19 18:30 01/18/19 14:39 DC Dextrose (Dextrose 50%-Water Syringe) 12.5 gm PRN Q15MIN PRN 01/15/19 17:45 Dobutamine HCl/ Dextrose 250 ml @ 6.302 mls/ hr CONT PRN 01/19/19 16:00 01/21/19 07:23 6.302 MLS/HR Docusate Sodium (Colace) 100 mg PRN DAILY PRN 01/15/19 17:15 Famotidine (Pepcid) 20 mg QHS 01/16/19 21:00 01/18/19 13:06 DC 01/17/19 21:08 20 MG Fentanyl Citrate (Fentanyl 2ml Vial) 50 mcg PRN Q2HR PRN 01/15/19 17:15 01/23/19 23:31 50 MCG Furosemide (Lasix) 40 mg [id number] 01/16/19 09:00 01/16/19 10:50 DC Heparin Sodium (Porcine) (Heparin Sodium) 5,000 unit Q12HR 01/20/19 01:45 01/24/19 08:07 5,000 UNIT Insulin Human Lispro (HumaLOG) 0-5 UNITS Q6HRS 01/16/19 00:00 01/20/19 12:47 2 UNITS Lansoprazole (Prevacid) 30 mg DAILY 01/23/19 09:00 01/24/19 08:06 30 MG Linezolid/Dextrose 300 ml @ 300 mls/hr Q12HR 01/16/19 09:00 01/20/19 08:26 DC 01/19/19 21:52 300 MLS/HR Magnesium Hydroxide (Milk Of Magnesia) 2,400 mg PRN DAILY PRN 01/15/19 18:45 Magnesium Sulfate 50 ml @ 25 mls/hr 1X ONCE 01/19/19 12:30 01/19/19 14:29 DC 01/19/19 15:04 25 MLS/HR Midazolam HCl 100 ml @ 5 mls/hr CONT PRN 01/15/19 17:15 01/20/19 09:46 DC 01/19/19 05:03 8 MLS/HR Midazolam HCl (Versed) 5 mg 1X ONCE 01/15/19 15:00 01/15/19 15:01 DC 01/15/19 15:59 5 MG Mirtazapine (Remeron) 7.5 mg QHS 01/16/19 21:00 01/23/19 20:14 7.5 MG Multivitamins (Thera-Plus Oral Liquid) 5 ml DAILY 01/21/19 09:00 01/24/19 08:05 5 ML Norepinephrine Bitartrate 250 ml @ 1.875 mls/ hr CONT PRN 01/15/19 17:00 01/22/19 10:32 DC 01/20/19 04:15 13.125 MLS/HR Ondansetron HCl (Zofran Odt) 4 mg PRN Q6HRS PRN 01/15/19 18:45 Pantoprazole Sodium (PROTONIX VIAL for IV PUSH) 40 mg DAILYAC 01/19/19 07:30 01/22/19 11:39 DC 01/22/19 08:33 40 MG Pantoprazole Sodium (Protonix) 40 mg DAILYAC 01/16/19 07:30 01/18/19 08:02 DC 01/18/19 07:52 40 MG Piperacillin Sod/ Tazobactam Sod (Zosyn Per Pharmacy) 1 each PRN DAILY PRN 01/15/19 17:45 UNV Piperacillin Sod/ Tazobactam Sod 2.25 gm/Sodium Chloride 50 ml @ 100 mls/hr Q6HRS 01/15/19 18:00 01/19/19 11:25 DC 01/19/19 05:59 100 MLS/HR Piperacillin Sod/ Tazobactam Sod 3.375 gm/Sodium Chloride 50 ml @ 100 mls/hr Q6HRS 01/19/19 12:00 01/24/19 05:57 100 MLS/HR Potassium Chloride/Water 50 ml @ 50 mls/hr 1X ONCE 01/23/19 10:00 01/23/19 10:59 DC 01/23/19 10:11 50 MLS/HR Potassium Chloride (KCl Oral Soln) 20 meq 1X ONCE 01/23/19 10:15 01/23/19 10:16 DC Propofol 50 ml @ As Directed STK-MED ONCE 01/15/19 15:02 01/15/19 15:03 DC Propofol (Diprivan) 200 mg 1X ONCE 01/15/19 15:00 01/15/19 15:06 DC Quetiapine Fumarate (SEROquel) 25 mg QHS 01/15/19 21:00 01/18/19 14:39 DC 01/17/19 21:08 25 MG Sodium Chloride 500 ml @ 250 mls/hr Q1HR PRN 01/17/19 19:15 Thiamine Mononitrate (Vitamin B-1) 100 mg DAILY 01/16/19 09:00 01/24/19 08:05 100 MG Tramadol HCl (Ultram) 25 mg PRN Q6HRS PRN 01/15/19 17:15 01/23/19 20:14 25 MG Vancomycin HCl (Vanco Per Pharmacy) 1 each PRN DAILY PRN 01/15/19 17:45 01/16/19 08:06 DC 01/15/19 21:10 1 EACH Vancomycin HCl (Vancomycin Trough Level) 1 each 1X ONCE 01/17/19 20:30 01/17/19 20:31 Cancel Vancomycin HCl 1.25 gm/Sodium Chloride 250 ml @ 167 mls/hr Q24H 01/16/19 21:00 01/16/19 21:00 DC Vancomycin HCl 2 gm/Sodium Chloride 500 ml @ 250 mls/hr 1X ONCE 01/15/19 20:00 01/15/19 21:59 DC 01/15/19 20:56 250 MLS/HR Labs: Lab Laboratory Tests Test 01/23/19 12:34 01/23/19 17:28 01/23/19 23:00 01/24/19 05:15 Glucose (Fingerstick) 79 mg/dL (70-99) 99 mg/dL (70-99) 85 mg/dL (70-99) Sodium Level 145 mmol/L (136-145) Potassium Level 3.9 mmol/L (3.5-5.1) Chloride Level 111 mmol/L (98-107) Carbon Dioxide Level 30 mmol/L (21-32) Anion Gap 4 (6-14) Blood Urea Nitrogen 42 mg/dL (7-20) Creatinine 1.4 mg/dL (0.6-1.0) Estimated GFR (Cockcroft-Gault) 37.1 Glucose Level 102 mg/dL (70-99) Calcium Level 9.0 mg/dL (8.5-10.1) Magnesium Level 2.4 mg/dL (1.8-2.4) Micro RUN DATE: 01/22/19 PAGE 1 RUN TIME: 3583 [facility] [address] [place] [address] Zia Keller M.D., Veterinary Surgery Technologist PATIENT: VASILIY ESPINAL ACCT: [id number] LOC: 1 [place] ICU U: [id number] AGE/SX: 73/F ROOM: 108 RE01/15/[address]: CHRISTINA CHAVARRIA MD : 1945 BED: 1 DIS: STATUS: ADM IN TLOC: SPEC #: [id number] LIAN: 01/20/19 STATUS: COMP REQ #: [id number] RECD: 01/20/[address] [facility] [address]: MICHELINE RYAN MD SOURCE: SPUTUM ENTR: 01/20/[address] [facility] [address]: CHRISTINA CHAVARRIA MD SPDESC: MICHELLE PASTOR MD, VENU S MD PASNOORI, VENKAT R MD SISILLO, SABATO MD ORDERED: SPUTUM CULTURE Procedure Result GRAM STAIN WHITE BLOOD CELLS Final Few GRAM STAIN EPITHELIAL CELLS Final None seen GRAM STAIN RESULT 1 Final Comment Few gram positive cocci GRAM STAIN EVALUATION Final Comment This specimen is of good quality and is acceptable for routine bacterial culture. Performed at: [address], [place], [place] [id number] Humanities Teacher: OSVALDO Freeman MD, Phone: [phone] SPUTUM CULTURE- Final Final report SPUTUM CULT RES 1 Final Yeast isolated. 3+ Request for further identification must be made within 1 week. Performed at: [address], [place], [place] [id number] Humanities Teacher: OSVALDO Freeman MD, Phone: [phone] Objective: Assessment: Fever, resolved Left loculated effusion, s/p thoracentesis on 01/19. Cultures pending. sputum GPC 01/20 Respiratory failure s/p extubation Circulatory failure CHF/Cardiomyopathy A fib, on amiodarone DM Stage 3 , sacral ulcer Anemia s/p PRBCs Yeast in urine, 01/16 Dysphagia Encephalopathy improving Plan: Plan of Care DC Zosyn,augmentin Off Zyvox f/u cultures d/w JEFF NETTLES MD January 24, 2019 08:13
[2019-01-24] MEDS: ALBUTEROL SULFATE 2.5 MG/3 ML NEBU. NEB SCH ×2 (08:15→20:19)
--- NOTE | 2019-01-24 09:00 | PDOC ---
PULMONARY PROGRESS NOTES Subjective EXTUBATED 01/20 PT CONFUSED SHE WANTS TO EAT AND DRINK Vitals Vital Signs Date Time Temp Pulse Resp B/P (MAP) Pulse Ox O2 Delivery O2 Flow Rate FiO2 01/24/19 08:16 98 Nasal Cannula 2.0 01/24/19 08:06 94 104/59 01/24/19 08:00 19 01/24/19 07:00 98.2 98.2 ROS: No Nausea, No Chest Pain, No Abdominal Pain, No Increase Cough General: Alert, No acute distress, Confused Lungs: Clear Cardiovascular: S1, S2 Abdomen: Soft, Non-tender Extremities: Other (EDEMA) Skin: Warm Labs Laboratory Tests Test 01/22/19 12:02 01/22/19 17:38 01/22/19 23:41 01/23/19 04:30 Glucose (Fingerstick) 112 mg/dL (70-99) 100 mg/dL (70-99) 108 mg/dL (70-99) White Blood Count 6.6 x10^3/uL (4.0-11.0) Red Blood Count 2.98 x10^6/uL (3.50-5.40) Hemoglobin 8.9 g/dL (12.0-15.5) Hematocrit 27.8 % (36.0-47.0) Mean Corpuscular Volume 93 fL (79-100) Mean Corpuscular Hemoglobin 30 pg (25-35) Mean Corpuscular Hemoglobin Concent 32 g/dL (31-37) Red Cell Distribution Width 18.9 % (11.5-14.5) Platelet Count 175 x10^3/uL (140-400) Neutrophils (%) (Auto) 74 % (31-73) Lymphocytes (%) (Auto) 10 % (24-48) Monocytes (%) (Auto) 11 % (0-9) Eosinophils (%) (Auto) 3 % (0-3) Basophils (%) (Auto) 1 % (0-3) Neutrophils # (Auto) 4.9 x10^3uL (1.8-7.7) Lymphocytes # (Auto) 0.7 x10^3/uL (1.0-4.8) Monocytes # (Auto) 0.8 x10^3/uL (0.0-1.1) Eosinophils # (Auto) 0.2 x10^3/uL (0.0-0.7) Basophils # (Auto) 0.1 x10^3/uL (0.0-0.2) Sodium Level 148 mmol/L (136-145) Potassium Level 3.3 mmol/L (3.5-5.1) Chloride Level 113 mmol/L (98-107) Carbon Dioxide Level 29 mmol/L (21-32) Anion Gap 6 (6-14) Blood Urea Nitrogen 41 mg/dL (7-20) Creatinine 1.3 mg/dL (0.6-1.0) Estimated GFR (Cockcroft-Gault) 40.4 Glucose Level 104 mg/dL (70-99) Calcium Level 8.3 mg/dL (8.5-10.1) Test 01/23/19 12:34 01/23/19 17:28 01/23/19 23:00 01/24/19 05:15 Glucose (Fingerstick) 79 mg/dL (70-99) 99 mg/dL (70-99) 85 mg/dL (70-99) Sodium Level 145 mmol/L (136-145) Potassium Level 3.9 mmol/L (3.5-5.1) Chloride Level 111 mmol/L (98-107) Carbon Dioxide Level 30 mmol/L (21-32) Anion Gap 4 (6-14) Blood Urea Nitrogen 42 mg/dL (7-20) Creatinine 1.4 mg/dL (0.6-1.0) Estimated GFR (Cockcroft-Gault) 37.1 Glucose Level 102 mg/dL (70-99) Calcium Level 9.0 mg/dL (8.5-10.1) Magnesium Level 2.4 mg/dL (1.8-2.4) Laboratory Tests Test 01/23/19 12:34 01/23/19 17:28 01/23/19 23:00 01/24/19 05:15 Glucose (Fingerstick) 79 mg/dL (70-99) 99 mg/dL (70-99) 85 mg/dL (70-99) Sodium Level 145 mmol/L (136-145) Potassium Level 3.9 mmol/L (3.5-5.1) Chloride Level 111 mmol/L (98-107) Carbon Dioxide Level 30 mmol/L (21-32) Anion Gap 4 (6-14) Blood Urea Nitrogen 42 mg/dL (7-20) Creatinine 1.4 mg/dL (0.6-1.0) Estimated GFR (Cockcroft-Gault) 37.1 Glucose Level 102 mg/dL (70-99) Calcium Level 9.0 mg/dL (8.5-10.1) Magnesium Level 2.4 mg/dL (1.8-2.4) Medications Active Scripts Medications Dose Route/Sig Max Daily Dose Days Date Category Vitamin C (Ascorbate Calcium) 500 Mg Tablet 500 Mg PO DAILY 01/15/19 Reported Aspirin 325 Mg Tablet 1 Tab PO DAILY 01/15/19 Reported Coreg (Carvedilol) 3.125 Mg Tablet 3.125 Mg PO BIDWMEALS 01/15/19 Reported Zofran (Ondansetron Hcl) 4 Mg Tablet 4 Mg PO PRN Q6HRS PRN 01/15/19 Reported B-1 (Thiamine HCl) 100 Mg Tablet 100 Mg PO DAILY 01/15/19 Reported Docusate Sodium 100 Mg Capsule 100 Mg PO PRN PRN 01/15/19 Reported Acetaminophen 160 Mg/5 Ml Oral.susp 650 Mg PO PRN Q4HRS PRN 01/15/19 Reported Milk Of Magnesia (Magnesium Hydroxide) 2,400 Mg/10 Ml Oral.susp 2,400 Mg PO PRN PRN 01/15/19 Reported Mirtazapine 7.5 Mg Tablet 7.5 Mg PO QHS 01/15/19 Reported Albuterol Sulfate Neb Soln (Albuterol Sulfate) 2.5 Mg/3 Ml Vial.neb 2.5 Mg NEB BID 01/15/19 Reported Atorvastatin Calcium 10 Mg Tablet 10 Mg PO HS 01/15/19 Reported Lasix (Furosemide) 40 Mg Tablet 40 Mg PO BID 01/15/19 Reported Protonix (Pantoprazole Sodium) 20 Mg Tablet.dr 40 Mg PO DAILY 01/15/19 Reported Amiodarone Hcl 200 Mg Tablet 1 Tab PO DAILY 01/15/19 Reported Seroquel (Quetiapine Fumarate) 25 Mg Tablet 25 Mg PO HS 01/15/19 Reported Tramadol Hcl 50 Mg Tablet 25 Mg PO Q6HRS PRN 01/15/19 Reported Seroquel (Quetiapine Fumarate) 25 Mg Tablet 12.5 Mg PO PRN Q6HRS PRN 01/15/19 Reported Comments CXR 5/5 IMPROVED LEFT EFFUSION/ MILD CHF, NO CHANGE Impression . IMPRESSION: 1. Acute respiratory failure, status post cardiopulmonary arrest, the patient transferred from [facility]. extubated, on canula 2. Acute on chronic systolic heart failure. EF 40% 3. Abnormal x-ray compatible with bilateral airspace disease in the lower lobes, pneumonia./ CHF, left effusion, s/p left tap 01/19 4. Type 2 diabetes. 5. Severe protein malnutrition. 6. Thrombocytopenia. 7. History of pacemaker implantation. 8. Prior history of gastric ulcers. 9. ABNORMAL CXR 10 METABOLIC ENCE POA 11 DYSPHAGIA 12 DIARRHEA Plan . PT NOT WELL ENOUGH TO GO TO SNU NEEDS HIGHER LEVEL OF CARE OFF DOBUATMMINE SITTING IN CHAIR NEEDS PT OT FOLLOW SPEECH INPUT NOT SAFE FOR ORAL FEEDING DOING WELL ON [facility] REC DAUGHTER REPORTS MULTIPLE EPISODES OF APNEAS/ NO SLEEP STUDY IN PAST WILL NEED SS OP IF SHE CAN TOLERATE BIPAP GISELLA MCNEAL MD January 24, 2019 09:00
[2019-01-24] MEDS: AMOXICILLIN/K CLAV 875/125MG TABLET. PO SCH ×2 (09:58→22:50)
--- NOTE | 2019-01-24 10:40 | PDOC ---
PROGRESS NOTES Subjective Subjective confused. discussed with family and her nurse. Objective Objective Vital Signs Date Time Temp Pulse Resp B/P (MAP) Pulse Ox O2 Delivery O2 Flow Rate FiO2 01/24/19 10:00 90 18 112/65 (81) 96 Nasal Cannula 2.0 01/24/19 07:00 98.2 98.2 Intake and Output 01/24/19 07:00 Intake Total 1318 ml Output Total 1371 ml Balance -53 ml Intake Oral 0 ml IV Total 366 ml Tube Feeding 597 ml Other 355 ml Output Urine Total 870 ml Stool Total 500 ml Emesis 1 ml Physical Exam Abdomen: Soft Heart: Regular rate, Normal S1, Normal S2 Extremities: Other (1 plus edema feet) General: Alert HEENT: Atraumatic Lungs: Other (bibasilar crackles with decreased breath sounds) Neuro: Normal speech Psych/Mental Status: Mood NL Skin: No rashes Assessment Assessment Problemsrecent cardiopulmonary arrest. 2. Aspiration pneumonia suspected 3. Fever.resolved 4. Leukocytosis.resolved 5. Acute kidney injury most likely secondary to the cardiopulmonary arrest r esolved 6. Hypotension resolved off of dobutamine 7. Elevated liver function tests improved 8. Nonischemic cardiomyopathy with improvement of left ventricular ejection fraction 15-20% improved to 40%. 9. Acute on chronic hypoxic and hypercapnic respiratory failure weaned off the ventilator 10. 11. Acute on chronic systolic congestive heart failure 12. Paroxysmal atrial fibrillation, but not a candidate for Pradaxa due to recent gastrointestinal bleed in 06/2018 from gastric ulcer. 13. Oropharyngeal dysphagia. NG tube feeding 14. Diabetes mellitus type 2. 15. Mild coronary artery disease. Medical Problems: (1) Cardiac arrest Status: Acute (2) HCAP (healthcare-associated pneumonia) Status: Acute (3) Liver failure Status: Acute Plan Plan of Care ABG CXR today start furosemide via NGT lab tomorrow switched to augmentin continue NG tube feeding PT and OT [facility] Comment Review of Relevant I have reviewed the following items kristen (where applicable) has been applied. Labs Laboratory Tests Test 01/22/19 12:02 01/22/19 17:38 01/22/19 23:41 01/23/19 04:30 Glucose (Fingerstick) 112 mg/dL (70-99) 100 mg/dL (70-99) 108 mg/dL (70-99) White Blood Count 6.6 x10^3/uL (4.0-11.0) Red Blood Count 2.98 x10^6/uL (3.50-5.40) Hemoglobin 8.9 g/dL (12.0-15.5) Hematocrit 27.8 % (36.0-47.0) Mean Corpuscular Volume 93 fL (79-100) Mean Corpuscular Hemoglobin 30 pg (25-35) Mean Corpuscular Hemoglobin Concent 32 g/dL (31-37) Red Cell Distribution Width 18.9 % (11.5-14.5) Platelet Count 175 x10^3/uL (140-400) Neutrophils (%) (Auto) 74 % (31-73) Lymphocytes (%) (Auto) 10 % (24-48) Monocytes (%) (Auto) 11 % (0-9) Eosinophils (%) (Auto) 3 % (0-3) Basophils (%) (Auto) 1 % (0-3) Neutrophils # (Auto) 4.9 x10^3uL (1.8-7.7) Lymphocytes # (Auto) 0.7 x10^3/uL (1.0-4.8) Monocytes # (Auto) 0.8 x10^3/uL (0.0-1.1) Eosinophils # (Auto) 0.2 x10^3/uL (0.0-0.7) Basophils # (Auto) 0.1 x10^3/uL (0.0-0.2) Sodium Level 148 mmol/L (136-145) Potassium Level 3.3 mmol/L (3.5-5.1) Chloride Level 113 mmol/L (98-107) Carbon Dioxide Level 29 mmol/L (21-32) Anion Gap 6 (6-14) Blood Urea Nitrogen 41 mg/dL (7-20) Creatinine 1.3 mg/dL (0.6-1.0) Estimated GFR (Cockcroft-Gault) 40.4 Glucose Level 104 mg/dL (70-99) Calcium Level 8.3 mg/dL (8.5-10.1) Test 01/23/19 12:34 01/23/19 17:28 01/23/19 23:00 01/24/19 05:15 Glucose (Fingerstick) 79 mg/dL (70-99) 99 mg/dL (70-99) 85 mg/dL (70-99) Sodium Level 145 mmol/L (136-145) Potassium Level 3.9 mmol/L (3.5-5.1) Chloride Level 111 mmol/L (98-107) Carbon Dioxide Level 30 mmol/L (21-32) Anion Gap 4 (6-14) Blood Urea Nitrogen 42 mg/dL (7-20) Creatinine 1.4 mg/dL (0.6-1.0) Estimated GFR (Cockcroft-Gault) 37.1 Glucose Level 102 mg/dL (70-99) Calcium Level 9.0 mg/dL (8.5-10.1) Magnesium Level 2.4 mg/dL (1.8-2.4) Laboratory Tests Test 01/23/19 12:34 01/23/19 17:28 01/23/19 23:00 01/24/19 05:15 Glucose (Fingerstick) 79 mg/dL (70-99) 99 mg/dL (70-99) 85 mg/dL (70-99) Sodium Level 145 mmol/L (136-145) Potassium Level 3.9 mmol/L (3.5-5.1) Chloride Level 111 mmol/L (98-107) Carbon Dioxide Level 30 mmol/L (21-32) Anion Gap 4 (6-14) Blood Urea Nitrogen 42 mg/dL (7-20) Creatinine 1.4 mg/dL (0.6-1.0) Estimated GFR (Cockcroft-Gault) 37.1 Glucose Level 102 mg/dL (70-99) Calcium Level 9.0 mg/dL (8.5-10.1) Magnesium Level 2.4 mg/dL (1.8-2.4) Microbiology 01/16/19 Blood Culture - Final, Complete NO GROWTH AFTER 5 DAYS 01/19/19 Anaerobic/Aerobic Culture, Resulted Pending 01/19/19 Anaerobic Culture Result 1 (BASIA), Resulted Pending 01/19/19 Aerobic Culture, Resulted Pending 01/19/19 Aerobic Culture Result 1 (BASIA), Resulted Pending 01/19/19 Gram Stain - Final, Resulted 01/19/19 Gram Stain Result 1 (BASIA) - Final, Resulted 01/19/19 Gram Stain Result 2 (BASIA) - Final, Resulted 01/20/19 - Final, Complete 01/20/19 - Final, Complete 01/20/19 - Final, Complete 01/20/19 Gram Stain Evaluation - Final, Complete 01/20/19 Sputum Culture - Final, Complete 01/20/19 Sputum Result 1 - Final, Complete 01/19/19 AFB Specimen Processing Tissue - Final, Resulted 01/19/19 Acid Fast Bacilli Culture, Resulted Pending 01/19/19 Gram Stain - Final, Resulted 01/16/19 Urine Culture - Final, Complete 01/16/19 Urine Culture Result 1 (BASIA) - Final, Complete Medications Current Medications Propofol (Diprivan) 200 mg 1X ONCE IV ; Start 01/15/19 at 15:00; Stop 01/15/19 at 15:06; Status DC Midazolam HCl (Versed) 5 mg 1X ONCE IV Last administered on 01/15/19at 15:59; Start 01/15/19 at 15:00; Stop 01/15/19 at 15:01; Status DC Propofol 50 ml @ As Directed STK-MED ONCE IV ; Start 01/15/19 at 15:02; Stop 01/15/19 at 15:03; Status DC Midazolam HCl 100 ml @ 0 mls/hr 1X ONCE IV Last administered on 01/15/19at 15:19; Start 01/15/19 at 15:15; Stop 01/15/19 at 15:16; Status DC Calcium Gluconate (Calcium Gluconate) 1,000 mg 1X ONCE IVP Last administered on 01/15/19at 15:58; Start 01/15/19 at 15:30; Stop 01/15/19 at 15:31; Status DC Norepinephrine Bitartrate 250 ml @ 1.875 mls/ hr CONT PRN IV SEE I/O RECORD Last administered on 01/20/19at 04:15; Start 01/15/19 at 17:00; Stop 01/22/19 at 10:32; Status DC Piperacillin Sod/ Tazobactam Sod (Zosyn Per Pharmacy) 1 each PRN DAILY PRN MC SEE COMMENTS; Start 01/15/19 at 17:15 Albuterol Sulfate (Ventolin Neb Soln) 2.5 mg PRN Q4HRS PRN NEB SHORTNESS OF BREATH; Start 01/15/19 at 17:15 Midazolam HCl 100 ml @ 5 mls/hr CONT PRN IV SEE I/O RECORD Last administered on 01/19/19 05:03; Start 01/15/19 at 17:15; Stop 01/20/19 at 09:46; Status DC Fentanyl Citrate (Fentanyl 2ml Vial) 50 mcg PRN Q2HR PRN IV PAIN Last admini stered on 01/23/19at 23:31; Start 01/15/19 at 17:15 Piperacillin Sod/ Tazobactam Sod 2.25 gm/Sodium Chloride 50 ml @ 100 mls/hr Q 6HRS IV Last administered on 01/19/19 05:59; Start 01/15/19 at 18:00; Stop 01/19/19 at 11:25; Status DC Albuterol Sulfate (Ventolin Neb Soln) 2.5 mg RTBID NEB Last administered on 01/24/19 08:15; Start 01/15/19 at 20:00 Amiodarone HCl (Cordarone) 200 mg DAILY PO Last administered on 01/24/19 08:06; Start 01/16/19 at 09:00 Aspirin (Dieudonne Aspirin) 325 mg DAILY PO Last administered on 01/24/19 08:05; Start 01/16/19 at 09:00 Atorvastatin Calcium (Lipitor) 10 mg HS PO Last administered on 01/23/19 20:14; Start 01/15/19 at 21:00 Carvedilol (Coreg) 3.125 mg BIDWMEALS PO ; Start 01/15/19 at 18:30; Stop 01/18/19 at 14:39; Status DC Docusate Sodium (Colace) 100 mg PRN DAILY PRN PO hard stools; Start 01/15/19 at 17:15 Furosemide (Lasix) 40 mg BID94 PO ; Start 01/16/19 at 09:00; Stop 01/16/19 at 10:50; Status DC Mirtazapine (Remeron) 7.5 mg DAILY PO ; Start 01/16/19 at 09:00; Stop 01/16/19 at 09:00; Status DC Tramadol HCl (Ultram) 25 mg PRN Q6HRS PRN PO MODERATE PAIN Last administered on 01/23/19 20:14; Start 01/15/19 at 17:15 Acetaminophen (Tylenol) 650 mg PRN Q4HRS PRN PO FEVER Last administered on 01/15/19at 20:57; Start 01/15/19 at 17:15; Stop 01/16/19 at 08:07; Status DC Ascorbic Acid (Vitamin C) 500 mg DAILY PO Last administered on 01/24/19at 08:05; Start 01/16/19 at 09:00 Magnesium Hydroxide (Milk Of Magnesia) 2,400 mg PRN DAILY PRN PO CONSTIPATION; Start 01/15/19 at 18:45 Ondansetron HCl (Zofran Odt) 4 mg PRN Q6HRS PRN PO NAUSEA/VOMITING; Start 01/15/19 at 18:45 Pantoprazole Sodium (Protonix) 40 mg DAILYAC PO Last administered on 01/18/19at 07:52; Start 01/16/19 at 07:30; Stop 01/18/19 at 08:02; Status DC Quetiapine Fumarate (SEROquel) 12.5 mg PRN Q6HRS PRN PO AGITATION Last administered on 01/24/19at 08:11; Start 01/15/19 at 17:15 Quetiapine Fumarate (SEROquel) 25 mg QHS PO Last administered on 01/17/19at 21:08; Start 01/15/19 at 21:00; Stop 01/18/19 at 14:39; Status DC Thiamine Mononitrate (Vitamin B-1) 100 mg DAILY PO Last administered on 01/24/19at 08:05; Start 01/16/19 at 09:00 Vancomycin HCl (Vanco Per Pharmacy) 1 each PRN DAILY PRN MC SEE COMMENTS Last administered on 01/15/19at 21:10; Start 01/15/19 at 17:45; Stop 01/16/19 at 08:06; Status DC Piperacillin Sod/ Tazobactam Sod (Zosyn Per Pharmacy) 1 each PRN DAILY PRN MC SEE COMMENTS; Start 01/15/19 at 17:45; Status UNV Insulin Human Lispro (HumaLOG) 0-5 UNITS TIDWMEALS SQ ; Start 01/16/19 at 08:00; Stop 01/16/19 at 08:00; Status DC Dextrose (Dextrose 50%-Water Syringe) 12.5 gm PRN Q15MIN PRN IV SEE COMMENTS; Start 01/15/19 at 17:45 Vancomycin HCl 2 gm/Sodium Chloride 500 ml @ 250 mls/hr 1X ONCE IV Last administered on 01/15/19at 20:56; Start 01/15/19 at 20:00; Stop 01/15/19 at 21:59; Status DC Insulin Human Lispro (HumaLOG) 0-5 UNITS Q6HRS SQ Last administered on 01/20/19at 12:47; Start 01/16/19 at 00:00 Vancomycin HCl 1.25 gm/Sodium Chloride 250 ml @ 167 mls/hr Q24H IV ; Start 01/16/19 at 21:00; Stop 01/16/19 at 21:00; Status DC Vancomycin HCl (Vancomycin Trough Level) 1 each 1X ONCE MC ; Start 01/17/19 at 20:30; Stop 01/17/19 at 20:31; Status Cancel Mirtazapine (Remeron) 7.5 mg QHS PO Last administered on 01/23/19at 20:14; Start 01/16/19 at 21:00 Linezolid/Dextrose 300 ml @ 300 mls/hr Q12HR IV Last administered on 01/19/19at 21:52; Start 01/16/19 at 09:00; Stop 01/20/19 at 08:26; Status DC Acetaminophen (Tylenol) 650 mg PRN Q4HRS PRN PEG MILD PAIN / TEMP Last administered on 01/24/19at 08:11; Start 01/16/19 at 08:15 Famotidine (Pepcid) 20 mg QHS PO Last administered on 01/17/19at 21:08; Start 01/16/19 at 21:00; Stop 01/18/19 at 13:06; Status DC Heparin Sodium (Porcine) (Heparin Sodium) 5,000 unit Q12HR SQ Last administered on 01/18/19at 13:18; Start 01/16/19 at 21:00; Stop 01/19/19 at 20:15; Status DC Sodium Chloride 500 ml @ 250 mls/hr Q1HR PRN IV HYPOTENTION; Start 01/17/19 at 19:15 Pantoprazole Sodium (PROTONIX VIAL for IV PUSH) 40 mg DAILYAC IVP Last administered on 01/22/19at 08:33; Start 01/19/19 at 07:30; Stop 01/22/19 at 11:39; Status DC Piperacillin Sod/ Tazobactam Sod 3.375 gm/Sodium Chloride 50 ml @ 100 mls/hr Q6HRS IV Last administered on 01/24/19at 05:57; Start 01/19/19 at 12:00; Stop 01/24/19 at 08:40; Status DC Magnesium Sulfate 50 ml @ 25 mls/hr 1X ONCE IV Last administered on 01/19/19at 15:04; Start 01/19/19 at 12:30; Stop 01/19/19 at 14:29; Status DC Dobutamine HCl/ Dextrose 250 ml @ 6.302 mls/ hr CONT PRN IV SEE I/O RECORD Last administered on 01/21/19at 07:23; Start 01/19/19 at 16:00 Heparin Sodium (Porcine) (Heparin Sodium) 5,000 unit Q12HR SQ Last administered on 01/24/19at 08:07; Start 01/20/19 at 01:45 Multivitamins (Thera-Plus Oral Liquid) 5 ml DAILY PEG Last administered on 01/24/19at 08:05; Start 01/21/19 at 09:00 Potassium Chloride (KCl Oral Soln) 40 meq 1X ONCE PO Last administered on 01/21/19at 11:56; Start 01/21/19 at 11:00; Stop 01/21/19 at 11:01; Status DC Lansoprazole (Prevacid) 30 mg DAILY NG Last administered on 01/24/19at 08:06; Start 01/23/19 at 09:00 Potassium Chloride/Water 50 ml @ 50 mls/hr 1X ONCE IV Last administered on 01/23/19at 10:11; Start 01/23/19 at 10:00; Stop 01/23/19 at 10:59; Status DC Potassium Chloride (KCl Oral Soln) 20 meq 1X ONCE NG ; Start 01/23/19 at 10:15; Stop 01/23/19 at 10:16; Status DC Amoxicillin/ Clavulanate Potassium (Augmentin 875/ 125mg) 1 tab BID PO Last administered on 01/24/19at 09:58; Start 01/24/19 at 09:00 Furosemide (Lasix) 20 mg DAILY IVP ; Start 01/24/19 at 11:00 Active Scripts Active [Multivitamins,Therapeutic Liq] 5 ML Liquid 5 Ml PEG DAILY Heparin Sodium (Heparin Sodium,Porcine) 5,000 Unit/1 Ml Vial 5,000 Unit SQ Q12HR Zosyn 2.25 Gram Vial (Piperacillin Sodium/Tazobactam) 2.25 Gm Vial 1 Each MC PRN DAILY PRN 10 Days ID doctor to decide on duration of iv zosyn Reported Vitamin C (Ascorbate Calcium) 500 Mg Tablet 500 Mg PO DAILY Aspirin 325 Mg Tablet 1 Tab PO DAILY Zofran (Ondansetron Hcl) 4 Mg Tablet 4 Mg PO PRN Q6HRS PRN B-1 (Thiamine HCl) 100 Mg Tablet 100 Mg PO DAILY Acetaminophen 160 Mg/5 Ml Oral.susp 650 Mg PO PRN Q4HRS PRN Mirtazapine 7.5 Mg Tablet 7.5 Mg PO QHS Albuterol Sulfate Neb Soln (Albuterol Sulfate) 2.5 Mg/3 Ml Vial.neb 2.5 Mg NEB BID Atorvastatin Calcium 10 Mg Tablet 10 Mg PO HS Protonix (Pantoprazole Sodium) 20 Mg Tablet.dr 40 Mg PO DAILY Amiodarone Hcl 200 Mg Tablet 1 Tab PO DAILY Seroquel (Quetiapine Fumarate) 25 Mg Tablet 25 Mg PO HS Tramadol Hcl 50 Mg Tablet 25 Mg PO Q6HRS PRN Seroquel (Quetiapine Fumarate) 25 Mg Tablet 12.5 Mg PO PRN Q6HRS PRN Vitals/I & O Vital Sign - Last 24 Hours 01/23/19 01/23/19 01/23/19 01/23/19 11:00 12:00 12:00 13:00 Temp 97.6 97.6 Pulse 91 84 82 Resp 21 22 20 B/P (MAP) 92/45 (61) 92/48 (63) 95/53 (67) Pulse Ox 97 97 100 O2 Delivery Nasal Cannula Nasal Cannula Nasal Cannula BiPAP/CPAP O2 Flow Rate 2.0 2.0 2.0 01/23/19 01/23/19 01/23/19 01/23/19 14:00 14:44 15:00 16:00 Temp 97.8 97.8 Pulse 87 87 77 Resp 18 18 18 B/P (MAP) 99/51 (67) 91/44 (60) 86/50 (62) Pulse Ox 96 96 100 100 O2 Delivery Nasal Cannula Nasal Cannula Nasal Cannula Nasal Cannula O2 Flow Rate 2.0 2.0 2.0 2.0 01/23/19 01/23/19 01/23/19 01/23/19 16:00 17:00 18:00 19:00 Pulse 80 78 79 Resp 19 B/P (MAP) 104/58 (73) 106/53 (70) 114/55 (74) Pulse Ox 97 97 97 O2 Delivery Nasal Cannula Nasal Cannula Nasal Cannula Nasal Cannula O2 Flow Rate 2.0 2.0 2.0 2.0 01/23/19 01/23/19 01/23/19 01/23/19 20:00 20:00 20:11 20:14 Temp 97.7 97.7 Pulse 78 Resp 19 B/P (MAP) 118/61 (80) Pulse Ox 100 100 100 O2 Delivery Nasal Cannula Nasal Cannula Nasal Cannula Nasal Cannula O2 Flow Rate 2.0 2.0 4.0 4.0 01/23/19 01/23/19 01/23/19 01/23/19 21:00 21:14 22:00 23:00 Pulse 81 72 84 Resp 19 B/P (MAP) 100/55 (70) 96/56 (69) 117/67 (84) Pulse Ox 97 97 97 100 O2 Delivery Nasal Cannula Nasal Cannula Nasal Cannula Nasal Cannula O2 Flow Rate 2.0 2.0 2.0 2.0 01/23/19 01/23/19 01/23/19 01/24/19 23:31 23:59 23:59 00:01 Temp 97.8 97.8 Pulse 86 Resp 14 19 12 B/P (MAP) 109/64 (79) Pulse Ox 100 99 99 O2 Delivery Nasal Cannula Nasal Cannula Nasal Cannula Nasal Cannula O2 Flow Rate 2.0 2.0 2.0 2.0 01/24/19 01/24/19 01/24/19 01/24/19 01:00 02:00 03:00 04:00 Pulse 77 78 70 Resp 19 B/P (MAP) 97/58 (71) 104/55 (71) 80/45 (57) Pulse Ox 100 100 100 O2 Delivery Nasal Cannula Nasal Cannula Nasal Cannula Nasal Cannula O2 Flow Rate 2.0 2.0 2.0 2.0 01/24/19 01/24/19 01/24/19 01/24/19 04:00 05:00 06:00 07:00 Temp 97.6 98.2 97.6 98.2 Pulse 74 82 84 94 Resp 12 19 19 18 B/P (MAP) 89/49 (62) 107/72 (84) 102/53 (69) 104/59 (74) Pulse Ox 100 97 95 97 O2 Delivery Nasal Cannula Nasal Cannula Nasal Cannula Nasal Cannula O2 Flow Rate 2.0 2.0 2.0 2.0 01/24/19 01/24/19 01/24/19 01/24/19 07:21 08:00 08:06 08:16 Pulse 93 94 Resp 19 B/P (MAP) 111/64 (80) 104/59 Pulse Ox 97 98 O2 Delivery Nasal Cannula Nasal Cannula Nasal Cannula O2 Flow Rate 2.0 2.0 2.0 01/24/19 01/24/19 09:00 10:00 Pulse 88 90 Resp 18 18 B/P (MAP) 99/53 (68) 112/65 (81) Pulse Ox 99 96 O2 Delivery Nasal Cannula Nasal Cannula O2 Flow Rate 2.0 2.0 Intake and Output 01/23/19 01/23/19 01/24/19 15:00 23:00 07:00 Intake Total 330 ml 833 ml 155 ml Output Total 290 ml 540 ml 541 ml Balance 40 ml 293 ml -386 ml CHRISTINA CHAVARRIA MD January 24, 2019 10:40
--- NOTE | 2019-01-24 10:52 | PDOC ---
Renal-Progress Notes Subjective Notes Notes STABLE History of Present Illness Hx of present illness NO NEW COMPLAINTS Vitals Vitals Vital Signs Date Time Temp Pulse Resp B/P (MAP) Pulse Ox O2 Delivery O2 Flow Rate FiO2 01/24/19 10:00 90 18 112/65 (81) 96 Nasal Cannula 2.0 01/24/19 07:00 98.2 98.2 Weight Weight [ ] I.O. Intake and Output Intake and Output 01/24/19 07:00 Intake Total 1318 ml Output Total 1371 ml Balance -53 ml Intake Oral 0 ml IV Total 366 ml Tube Feeding 597 ml Other 355 ml Output Urine Total 870 ml Stool Total 500 ml Emesis 1 ml Labs Labs Laboratory Tests Test 01/23/19 12:34 01/23/19 17:28 01/23/19 23:00 01/24/19 05:15 Glucose (Fingerstick) 79 mg/dL (70-99) 99 mg/dL (70-99) 85 mg/dL (70-99) Sodium Level 145 mmol/L (136-145) Potassium Level 3.9 mmol/L (3.5-5.1) Chloride Level 111 mmol/L (98-107) Carbon Dioxide Level 30 mmol/L (21-32) Anion Gap 4 (6-14) Blood Urea Nitrogen 42 mg/dL (7-20) Creatinine 1.4 mg/dL (0.6-1.0) Estimated GFR (Cockcroft-Gault) 37.1 Glucose Level 102 mg/dL (70-99) Calcium Level 9.0 mg/dL (8.5-10.1) Magnesium Level 2.4 mg/dL (1.8-2.4) Micro Micro Microbiology 01/16/19 Blood Culture - Final, Complete NO GROWTH AFTER 5 DAYS 01/19/19 Anaerobic/Aerobic Culture, Resulted Pending 01/19/19 Anaerobic Culture Result 1 (BASIA), Resulted Pending 01/19/19 Aerobic Culture, Resulted Pending 01/19/19 Aerobic Culture Result 1 (BASIA), Resulted Pending 01/19/19 Gram Stain - Final, Resulted 01/19/19 Gram Stain Result 1 (BASIA) - Final, Resulted 01/19/19 Gram Stain Result 2 (BASIA) - Final, Resulted 01/20/19 - Final, Complete 01/20/19 - Final, Complete 01/20/19 - Final, Complete 01/20/19 Gram Stain Evaluation - Final, Complete 01/20/19 Sputum Culture - Final, Complete 01/20/19 Sputum Result 1 - Final, Complete 01/19/19 AFB Specimen Processing Tissue - Final, Resulted 01/19/19 Acid Fast Bacilli Culture, Resulted Pending 01/19/19 Gram Stain - Final, Resulted 01/16/19 Urine Culture - Final, Complete 01/16/19 Urine Culture Result 1 (BASIA) - Final, Complete Review of Systems Constitutional: yes: other (UNABLE TO OBTAIN) Physical Exam General Appearance: no apparent distress Skin: warm Respiratory: decreased breath sounds Heart: S1S2 Abdomen: soft, bowel sounds present Genitourinary: bladder flat Extremities: pulses present Neurology: other (drowsy) Assessment Assessment IMP NICKIE-RESOLVING WITH CR DOWN TO 1.3 MILD HYPOKALEMIA-BETTER HYPERNATREMIA-STABLE ACUTE RESP FAILURE CMI WITH EF OF 15-20% PLEURAL EFFUSION-S/P THORACENTESIS DYSPHAGIA PLAN TF AND WATER K REPLACEMENT NEEDED POSSIBLE TRANSFER TO [facility] TODAY WILL FOLLOW HERNANDEZ LOUIS MD January 24, 2019 10:52
[2019-01-24 10:53] LABS: BASE EXCESS ABG 1 mmol/L (-3-3); FIO2 ABG 28; HCO3 ABG 28 mmol/L (21-28); PCO2 ABG 56 mmHg (35-46); PO2 ABG 87 mmHg (65-108); SAT O2 ABG 96 % (92-99)
[2019-01-24] MEDS ORDERED: FUROSEMIDE 40 MG/4 ML VIAL. IVP SCH (11:00)
--- NOTE | 2019-01-24 11:00 | NUR ---
pt sitting up in chair at bedside. pt was pulled over onto rehab chair. pt unable to stand to transfer over to chair. pt and ot consults sent. abg done. daughter sitting at bedside. pt continues to beg for iced tea and water. requested speech therapy to see pt. again today per family request. pt refused to wear bipap verbally and physically. abg co2 55. Daughter kenyetta requested just giving her the ice chips even though dr stone would not order it without speech therapy passing pt. talked to kenyetta about possibility of making pt to be comfort care and giving her what she wants. Kenyetta verbalized they would not do comfort care.
[2019-01-24] MEDS: POTASSIUM CHLORIDE 20 MEQ/15 ML ORAL LIQUID. NG SCH (11:19)
[2019-01-24] MEDS: FUROSEMIDE 40 MG/4 ML ORAL SOLUTION. NG SCH (11:19)
--- NOTE | 2019-01-24 13:06 | RAD ---
Portable chest, 01/24/2019: HISTORY: Bibasilar lung crackles Comparison is made to a study from 01/22/2019. The patient positioning is lordotic. A left PICC is in place extending to the level of the atriocaval junction. A Dobbhoff tube extends into the stomach. The heart is enlarged. There are moderate ongoing bibasilar opacities compatible with infiltrate and probable pleural fluid. Allowing for differences in patient positioning these opacities are probably unchanged. There is no evidence of pneumothorax. No new abnormality is detected. IMPRESSION: Moderate ongoing bibasilar infiltrates and probable pleural effusions. Electronically signed by: Roibn Howard MD (01/24/2019 1:03 PM) [facility]
--- NOTE | 2019-01-24 19:49 | NUR ---
patient arrived in room 673 at this time. SUPPLY CHAIN TECH stated patient pulled NG tube out before transfer to the floor. Patient refuses to tell this RN her name or birthday at this time.
--- NOTE | 2019-01-24 21:16 | RAD ---
EXAM: Abdomen, single view. HISTORY: Nasogastric tube placement. COMPARISON: Radiograph obtained on the same date. FINDINGS: A frontal view of the upper abdomen is obtained. There is a nasogastric tube tip overlying the expected location of the gastroesophageal junction or distal esophagus. There is a left PICC with the tip in the superior cavoatrial junction. There are diffuse lower lobe predominant infiltrate and there are small pleural effusions. There is an enlarged cardiac silhouette. There is instrumented fusion at the lower lumbar levels. IMPRESSION: 1. Nasogastric tube likely near the gastroesophageal junction or within the distal esophagus. 2. Stable bilateral lower lobe predominant pulmonary infiltrate with small pleural effusions and cardiomegaly. Electronically signed by: Teresa Omer MD (01/24/2019 9:14 PM) [facility]
--- NOTE | 2019-01-24 22:34 | RAD ---
EXAM: Abdomen, single view. HISTORY: Nasogastric tube placement. COMPARISON: Radiograph obtained on the same date. FINDINGS: A frontal view of the upper abdomen is obtained. There is a nasogastric tube overlying the upper abdomen, likely within the proximal stomach. There is a left PICC within the superior vena cava or superior cavoatrial junction. There is diffuse lower lobe predominant filtrate with small pleural effusions. There is cardia megaly. There is lumbar fusion instrumentation. There is a suspected cardiac event monitor overlying the mediastinum. IMPRESSION: 1. There is a gastric tube within the suspected proximal stomach. 2. Diffuse lower lobe predominant bilateral lung infiltrate with small pleural effusions and cardiomegaly. Electronically signed by: Teresa Omer MD (01/24/2019 10:31 PM) [facility]
[2019-01-24] MEDS: ATORVASTATIN CALCIUM 10 MG TABLET. PO SCH (22:50)
[2019-01-24] MEDS: MIRTAZAPINE 7.5 MG TABLET. PO SCH (22:50)
[2019-01-25] MEDS: QUEtiapine 25 MG TABLET. PO PRN ×2 (01:05→08:29)
[2019-01-25] MEDS: fentaNYL PF VIAL 100 MCG/2 ML VIAL IV PRN ×4 (03:03→14:48)
[2019-01-25 03:51] LABS: BASO # 0.1 x10^3/uL (0.0-0.2); BASO % 1 % (0-3); EOS # 0.2 x10^3/uL (0.0-0.7); EOS % 3 % (0-3); HEMATOCRIT 31.2 % (36.0-47.0); HEMOGLOBIN 9.8 g/dL (12.0-15.5); LYMPH # 0.7 x10^3/uL (1.0-4.8); LYMPH % 9 % (24-48); MEAN CORPUSCULAR HEMOGLOBIN 30 pg (25-35); MEAN CORPUSCULAR HGB CONC 31 g/dL (31-37); MEAN CORPUSCULAR VOLUME 94 fL (79-100); MONO # 0.6 x10^3/uL (0.0-1.1); MONO % 9 % (0-9); NEUT # 5.6 x10^3uL (1.8-7.7); NEUT % 78 % (31-73); PLATELET COUNT 217 x10^3/uL (140-400); RED BLOOD COUNT 3.32 x10^6/uL (3.50-5.40); RED CELL DISTRIBUTION WIDTH 19.6 % (11.5-14.5); WHITE BLOOD COUNT 7.2 x10^3/uL (4.0-11.0)
[2019-01-25 04:05] LABS: CALCIUM 8.8 mg/dL (8.5-10.1); CREATININE 1.4 mg/dL (0.6-1.0); GFR 37.1; POTASSIUM 3.6 mmol/L (3.5-5.1)
[2019-01-25] MEDS: INSULIN LISPRO 300 UNITS/3 ML INSULN.PEN. SQ SCH ×4 (05:51→18:00)
[2019-01-25 08:00] VITALS: BP 133/78
[2019-01-25] MEDS: ASPIRIN 325 MG TABLET PO SCH (08:29)
[2019-01-25] MEDS: AMOXICILLIN/K CLAV 875/125MG TABLET. PO SCH ×2 (08:29→21:07)
[2019-01-25] MEDS: POTASSIUM CHLORIDE 20 MEQ/15 ML ORAL LIQUID. NG SCH (08:29)
[2019-01-25] MEDS: ASCORBIC ACID 500 MG TABLET PO SCH (08:29)
[2019-01-25] MEDS: LANSOPRAZOLE 30 MG TAB.RAP.DR NG SCH (08:30)
[2019-01-25] MEDS: MULTIVITAMINS,THERAPEUTIC 5 ML ORAL LIQUID. PEG SCH (08:30)
[2019-01-25] MEDS: THIAMINE 100 MG TABLET. PO SCH (08:30)
[2019-01-25] MEDS: AMIODARONE HCL 200 MG TABLET. PO SCH (08:31)
[2019-01-25] MEDS: HEPARIN for SUB-Q USE 5,000 UNIT/ML VIAL. SQ SCH ×2 (08:32→21:08)
[2019-01-25] MEDS: ALBUTEROL SULFATE 2.5 MG/3 ML NEBU. NEB SCH ×2 (08:43→20:00)
--- NOTE | 2019-01-25 09:15 | PDOC ---
PULMONARY PROGRESS NOTES Subjective EXTUBATED 3 REMAINS CONFUSED ON N/C 02 Vitals Vital Signs Date Time Temp Pulse Resp B/P (MAP) Pulse Ox O2 Delivery O2 Flow Rate FiO2 01/25/19 08:43 94 Nasal Cannula 2.0 01/25/19 08:31 104 133/78 01/25/19 08:00 98.1 18 98.1 ROS: No Nausea, No Chest Pain, No Abdominal Pain, No Increase Cough General: Alert, No acute distress, Confused Lungs: Clear Cardiovascular: S1, S2 Abdomen: Soft, Non-tender Extremities: Other (EDEMA) Skin: Warm Labs Laboratory Tests Test 01/23/19 12:34 01/23/19 17:28 01/23/19 23:00 01/24/19 05:15 Glucose (Fingerstick) 79 mg/dL (70-99) 99 mg/dL (70-99) 85 mg/dL (70-99) Sodium Level 145 mmol/L (136-145) Potassium Level 3.9 mmol/L (3.5-5.1) Chloride Level 111 mmol/L (98-107) Carbon Dioxide Level 30 mmol/L (21-32) Anion Gap 4 (6-14) Blood Urea Nitrogen 42 mg/dL (7-20) Creatinine 1.4 mg/dL (0.6-1.0) Estimated GFR (Cockcroft-Gault) 37.1 Glucose Level 102 mg/dL (70-99) Calcium Level 9.0 mg/dL (8.5-10.1) Magnesium Level 2.4 mg/dL (1.8-2.4) Test 01/24/19 10:45 01/24/19 10:50 01/24/19 17:50 01/24/19 21:05 O2 Saturation 96 % (92-99) Arterial Blood pH 7.31 (7.35-7.45) Arterial Blood pCO2 at Patient Temp 56 mmHg (35-46) Arterial Blood pO2 at Patient Temp 87 mmHg (65-108) Arterial Blood HCO3 28 mmol/L (21-28) Arterial Blood Base Excess 1 mmol/L (-3-3) FiO2 28 Glucose (Fingerstick) 87 mg/dL (70-99) 89 mg/dL (70-99) 82 mg/dL (70-99) Test 01/25/19 00:05 01/25/19 03:40 01/25/19 05:46 Glucose (Fingerstick) 85 mg/dL (70-99) 95 mg/dL (70-99) White Blood Count 7.2 x10^3/uL (4.0-11.0) Red Blood Count 3.32 x10^6/uL (3.50-5.40) Hemoglobin 9.8 g/dL (12.0-15.5) Hematocrit 31.2 % (36.0-47.0) Mean Corpuscular Volume 94 fL (79-100) Mean Corpuscular Hemoglobin 30 pg (25-35) Mean Corpuscular Hemoglobin Concent 31 g/dL (31-37) Red Cell Distribution Width 19.6 % (11.5-14.5) Platelet Count 217 x10^3/uL (140-400) Neutrophils (%) (Auto) 78 % (31-73) Lymphocytes (%) (Auto) 9 % (24-48) Monocytes (%) (Auto) 9 % (0-9) Eosinophils (%) (Auto) 3 % (0-3) Basophils (%) (Auto) 1 % (0-3) Neutrophils # (Auto) 5.6 x10^3uL (1.8-7.7) Lymphocytes # (Auto) 0.7 x10^3/uL (1.0-4.8) Monocytes # (Auto) 0.6 x10^3/uL (0.0-1.1) Eosinophils # (Auto) 0.2 x10^3/uL (0.0-0.7) Basophils # (Auto) 0.1 x10^3/uL (0.0-0.2) Sodium Level 146 mmol/L (136-145) Potassium Level 3.6 mmol/L (3.5-5.1) Chloride Level 109 mmol/L (98-107) Carbon Dioxide Level 30 mmol/L (21-32) Anion Gap 7 (6-14) Blood Urea Nitrogen 44 mg/dL (7-20) Creatinine 1.4 mg/dL (0.6-1.0) Estimated GFR (Cockcroft-Gault) 37.1 Glucose Level 109 mg/dL (70-99) Calcium Level 8.8 mg/dL (8.5-10.1) Laboratory Tests Test 01/24/19 10:45 01/24/19 10:50 01/24/19 17:50 01/24/19 21:05 O2 Saturation 96 % (92-99) Arterial Blood pH 7.31 (7.35-7.45) Arterial Blood pCO2 at Patient Temp 56 mmHg (35-46) Arterial Blood pO2 at Patient Temp 87 mmHg (65-108) Arterial Blood HCO3 28 mmol/L (21-28) Arterial Blood Base Excess 1 mmol/L (-3-3) FiO2 28 Glucose (Fingerstick) 87 mg/dL (70-99) 89 mg/dL (70-99) 82 mg/dL (70-99) Test 01/25/19 00:05 01/25/19 03:40 01/25/19 05:46 Glucose (Fingerstick) 85 mg/dL (70-99) 95 mg/dL (70-99) White Blood Count 7.2 x10^3/uL (4.0-11.0) Red Blood Count 3.32 x10^6/uL (3.50-5.40) Hemoglobin 9.8 g/dL (12.0-15.5) Hematocrit 31.2 % (36.0-47.0) Mean Corpuscular Volume 94 fL (79-100) Mean Corpuscular Hemoglobin 30 pg (25-35) Mean Corpuscular Hemoglobin Concent 31 g/dL (31-37) Red Cell Distribution Width 19.6 % (11.5-14.5) Platelet Count 217 x10^3/uL (140-400) Neutrophils (%) (Auto) 78 % (31-73) Lymphocytes (%) (Auto) 9 % (24-48) Monocytes (%) (Auto) 9 % (0-9) Eosinophils (%) (Auto) 3 % (0-3) Basophils (%) (Auto) 1 % (0-3) Neutrophils # (Auto) 5.6 x10^3uL (1.8-7.7) Lymphocytes # (Auto) 0.7 x10^3/uL (1.0-4.8) Monocytes # (Auto) 0.6 x10^3/uL (0.0-1.1) Eosinophils # (Auto) 0.2 x10^3/uL (0.0-0.7) Basophils # (Auto) 0.1 x10^3/uL (0.0-0.2) Sodium Level 146 mmol/L (136-145) Potassium Level 3.6 mmol/L (3.5-5.1) Chloride Level 109 mmol/L (98-107) Carbon Dioxide Level 30 mmol/L (21-32) Anion Gap 7 (6-14) Blood Urea Nitrogen 44 mg/dL (7-20) Creatinine 1.4 mg/dL (0.6-1.0) Estimated GFR (Cockcroft-Gault) 37.1 Glucose Level 109 mg/dL (70-99) Calcium Level 8.8 mg/dL (8.5-10.1) Medications Active Scripts Medications Dose Route/Sig Max Daily Dose Days Date Category Vitamin C (Ascorbate Calcium) 500 Mg Tablet 500 Mg PO DAILY 01/15/19 Reported Aspirin 325 Mg Tablet 1 Tab PO DAILY 01/15/19 Reported Coreg (Carvedilol) 3.125 Mg Tablet 3.125 Mg PO BIDWMEALS 01/15/19 Reported Zofran (Ondansetron Hcl) 4 Mg Tablet 4 Mg PO PRN Q6HRS PRN 01/15/19 Reported B-1 (Thiamine HCl) 100 Mg Tablet 100 Mg PO DAILY 01/15/19 Reported Docusate Sodium 100 Mg Capsule 100 Mg PO PRN PRN 01/15/19 Reported Acetaminophen 160 Mg/5 Ml Oral.susp 650 Mg PO PRN Q4HRS PRN 01/15/19 Reported Milk Of Magnesia (Magnesium Hydroxide) 2,400 Mg/10 Ml Oral.susp 2,400 Mg PO PRN PRN 01/15/19 Reported Mirtazapine 7.5 Mg Tablet 7.5 Mg PO QHS 01/15/19 Reported Albuterol Sulfate Neb Soln (Albuterol Sulfate) 2.5 Mg/3 Ml Vial.neb 2.5 Mg NEB BID 01/15/19 Reported Atorvastatin Calcium 10 Mg Tablet 10 Mg PO HS 01/15/19 Reported Lasix (Furosemide) 40 Mg Tablet 40 Mg PO BID 01/15/19 Reported Protonix (Pantoprazole Sodium) 20 Mg Tablet.dr 40 Mg PO DAILY 01/15/19 Reported Amiodarone Hcl 200 Mg Tablet 1 Tab PO DAILY 01/15/19 Reported Seroquel (Quetiapine Fumarate) 25 Mg Tablet 25 Mg PO HS 01/15/19 Reported Tramadol Hcl 50 Mg Tablet 25 Mg PO Q6HRS PRN 01/15/19 Reported Seroquel (Quetiapine Fumarate) 25 Mg Tablet 12.5 Mg PO PRN Q6HRS PRN 01/15/19 Reported Comments CXR 01/22 IMPROVED LEFT EFFUSION/ MILD CHF, NO CHANGE Impression . IMPRESSION: 1. Acute respiratory failure, status post cardiopulmonary arrest, the patient transferred from [facility]. extubated, on canula 2. Acute on chronic systolic heart failure. EF 40% 3. Abnormal x-ray compatible with bilateral airspace disease in the lower lobes, pneumonia./ CHF, left effusion, s/p left tap 01/19 4. Type 2 diabetes. 5. Severe protein malnutrition. 6. Thrombocytopenia. 7. History of pacemaker implantation. 8. Prior history of gastric ulcers. 9. ABNORMAL CXR 10 METABOLIC ENCE POA 11 DYSPHAGIA 12 DIARRHEA 13 HYPERCAPNIA Plan . DAUGHTER UPSET THAT MOTHER WAS NOT PLACE ON BIPAP LAST ANNE, PT REFUSED SHE REMAINS COFUSED SUSPECT SEC TO LACK OF SLEEP AND LONG HOSPITALIZATION, WILL OBAITN AN ABG THIS ANNE, CXR NOW INFORMED DAUGHTER THAT SEDATION IS CONTRAINDICATED WITH BIPAP PT NOT WELL ENOUGH TO GO TO SNU NEEDS HIGHER LEVEL OF CARE, INSURANCE HAS DENIED TRANSFER TO LTAC OFF DOBUATMMINE ON AMIODARONE WILL MONITOR FOR NOW FAILED VIDEO NEEDS NPO FOR NOW DOING WELL ON CANULA DECREASE 02 FLOW CARDIOLOGY REC DAUGHTER REPORTS MULTIPLE EPISODES OF APNEAS/ NO SLEEP STUDY IN PAST WILL NEED SS OP IF SHE CAN TOLERATE BIPAP D/W DR CHAVARRIA AT LENGTH GISELLA MCNEAL MD January 25, 2019 09:15
--- NOTE | 2019-01-25 10:32 | PDOC ---
PROGRESS NOTES Subjective Subjective discussed with nurse and her daughter. patient pulled out NG tube last night and replaced. declined bipap last night. daughter wants me to sedate her to place bipap on but that could cause more confusion and more co2 retention and worsen her chronic respiratory failure. nurse spoke with dr. machado about bipap refusal just now. alert and not short of breath. confused. labs reviewed. Objective Objective Vital Signs Date Time Temp Pulse Resp B/P (MAP) Pulse Ox O2 Delivery O2 Flow Rate FiO2 01/25/19 08:43 94 Nasal Cannula 2.0 01/25/19 08:31 104 133/78 01/25/19 08:00 98.1 18 98.1 Intake and Output 01/25/19 06:59 Intake Total 1420 ml Output Total 1775 ml Balance -355 ml Intake Oral 0 ml Tube Feeding 830 ml Other 590 ml Output Urine Total 775 ml Stool Total 1000 ml Physical Exam Abdomen: Soft Heart: Regular rate, Normal S1, Normal S2 Extremities: No edema General: Alert HEENT: Atraumatic Lungs: Other (decreased breath sounds) Neuro: Normal speech Psych/Mental Status: Mood NL, Other (confused) Skin: No rashes Assessment Assessment Problemsrecent cardiopulmonary arrest. 2. Aspiration pneumonia suspected 3. Fever.resolved 4. Leukocytosis.resolved 5. Acute kidney injury most likely secondary to the cardiopulmonary arrest resolved 6. Hypotension resolved off of dobutamine 7. Elevated liver function tests improved 8. Nonischemic cardiomyopathy with improvement of left ventricular ejection fraction 15-20% improved to 40%. 9. Acute on chronic hypoxic and hypercapnic respiratory failure weaned off the ventilator 10. 11. Acute on chronic systolic congestive heart failure compensated clinically 12. Paroxysmal atrial fibrillation, but not a candidate for Pradaxa due to recent gastrointestinal bleed in 06/2018 from gastric ulcer. 13. Oropharyngeal dysphagia. NG tube feeding 14. Diabetes mellitus type 2. 15. Mild coronary artery disease. suspected sleep apnea. needs out patient sleep study and hs bipap Medical Problems: (1) Cardiac arrest Status: Acute (2) HCAP (healthcare-associated pneumonia) Status: Acute (3) Liver failure Status: Acute Plan Plan of Care NG tube feeding oral lasix PT and OT bipap at hs if patient complies nurse to bring bipap to room for tonight lab tomorrow continue restraints to protect NG tube Comment Review of Relevant I have reviewed the following items kristen (where applicable) has been applied. Labs Laboratory Tests Test 01/23/19 12:34 01/23/19 17:28 01/23/19 23:00 01/24/19 05:15 Glucose (Fingerstick) 79 mg/dL (70-99) 99 mg/dL (70-99) 85 mg/dL (70-99) Sodium Level 145 mmol/L (136-145) Potassium Level 3.9 mmol/L (3.5-5.1) Chloride Level 111 mmol/L (98-107) Carbon Dioxide Level 30 mmol/L (21-32) Anion Gap 4 (6-14) Blood Urea Nitrogen 42 mg/dL (7-20) Creatinine 1.4 mg/dL (0.6-1.0) Estimated GFR (Cockcroft-Gault) 37.1 Glucose Level 102 mg/dL (70-99) Calcium Level 9.0 mg/dL (8.5-10.1) Magnesium Level 2.4 mg/dL (1.8-2.4) Test 01/24/19 10:45 01/24/19 10:50 01/24/19 17:50 01/24/19 21:05 O2 Saturation 96 % (92-99) Arterial Blood pH 7.31 (7.35-7.45) Arterial Blood pCO2 at Patient Temp 56 mmHg (35-46) Arterial Blood pO2 at Patient Temp 87 mmHg (65-108) Arterial Blood HCO3 28 mmol/L (21-28) Arterial Blood Base Excess 1 mmol/L (-3-3) FiO2 28 Glucose (Fingerstick) 87 mg/dL (70-99) 89 mg/dL (70-99) 82 mg/dL (70-99) Test 01/25/19 00:05 01/25/19 03:40 01/25/19 05:46 Glucose (Fingerstick) 85 mg/dL (70-99) 95 mg/dL (70-99) White Blood Count 7.2 x10^3/uL (4.0-11.0) Red Blood Count 3.32 x10^6/uL (3.50-5.40) Hemoglobin 9.8 g/dL (12.0-15.5) Hematocrit 31.2 % (36.0-47.0) Mean Corpuscular Volume 94 fL (79-100) Mean Corpuscular Hemoglobin 30 pg (25-35) Mean Corpuscular Hemoglobin Concent 31 g/dL (31-37) Red Cell Distribution Width 19.6 % (11.5-14.5) Platelet Count 217 x10^3/uL (140-400) Neutrophils (%) (Auto) 78 % (31-73) Lymphocytes (%) (Auto) 9 % (24-48) Monocytes (%) (Auto) 9 % (0-9) Eosinophils (%) (Auto) 3 % (0-3) Basophils (%) (Auto) 1 % (0-3) Neutrophils # (Auto) 5.6 x10^3uL (1.8-7.7) Lymphocytes # (Auto) 0.7 x10^3/uL (1.0-4.8) Monocytes # (Auto) 0.6 x10^3/uL (0.0-1.1) Eosinophils # (Auto) 0.2 x10^3/uL (0.0-0.7) Basophils # (Auto) 0.1 x10^3/uL (0.0-0.2) Sodium Level 146 mmol/L (136-145) Potassium Level 3.6 mmol/L (3.5-5.1) Chloride Level 109 mmol/L (98-107) Carbon Dioxide Level 30 mmol/L (21-32) Anion Gap 7 (6-14) Blood Urea Nitrogen 44 mg/dL (7-20) Creatinine 1.4 mg/dL (0.6-1.0) Estimated GFR (Cockcroft-Gault) 37.1 Glucose Level 109 mg/dL (70-99) Calcium Level 8.8 mg/dL (8.5-10.1) Laboratory Tests Test 01/24/19 10:45 01/24/19 10:50 01/24/19 17:50 01/24/19 21:05 O2 Saturation 96 % (92-99) Arterial Blood pH 7.31 (7.35-7.45) Arterial Blood pCO2 at Patient Temp 56 mmHg (35-46) Arterial Blood pO2 at Patient Temp 87 mmHg (65-108) Arterial Blood HCO3 28 mmol/L (21-28) Arterial Blood Base Excess 1 mmol/L (-3-3) FiO2 28 Glucose (Fingerstick) 87 mg/dL (70-99) 89 mg/dL (70-99) 82 mg/dL (70-99) Test 01/25/19 00:05 01/25/19 03:40 01/25/19 05:46 Glucose (Fingerstick) 85 mg/dL (70-99) 95 mg/dL (70-99) White Blood Count 7.2 x10^3/uL (4.0-11.0) Red Blood Count 3.32 x10^6/uL (3.50-5.40) Hemoglobin 9.8 g/dL (12.0-15.5) Hematocrit 31.2 % (36.0-47.0) Mean Corpuscular Volume 94 fL (79-100) Mean Corpuscular Hemoglobin 30 pg (25-35) Mean Corpuscular Hemoglobin Concent 31 g/dL (31-37) Red Cell Distribution Width 19.6 % (11.5-14.5) Platelet Count 217 x10^3/uL (140-400) Neutrophils (%) (Auto) 78 % (31-73) Lymphocytes (%) (Auto) 9 % (24-48) Monocytes (%) (Auto) 9 % (0-9) Eosinophils (%) (Auto) 3 % (0-3) Basophils (%) (Auto) 1 % (0-3) Neutrophils # (Auto) 5.6 x10^3uL (1.8-7.7) Lymphocytes # (Auto) 0.7 x10^3/uL (1.0-4.8) Monocytes # (Auto) 0.6 x10^3/uL (0.0-1.1) Eosinophils # (Auto) 0.2 x10^3/uL (0.0-0.7) Basophils # (Auto) 0.1 x10^3/uL (0.0-0.2) Sodium Level 146 mmol/L (136-145) Potassium Level 3.6 mmol/L (3.5-5.1) Chloride Level 109 mmol/L (98-107) Carbon Dioxide Level 30 mmol/L (21-32) Anion Gap 7 (6-14) Blood Urea Nitrogen 44 mg/dL (7-20) Creatinine 1.4 mg/dL (0.6-1.0) Estimated GFR (Cockcroft-Gault) 37.1 Glucose Level 109 mg/dL (70-99) Calcium Level 8.8 mg/dL (8.5-10.1) Microbiology 01/16/19 Blood Culture - Final, Complete NO GROWTH AFTER 5 DAYS 01/19/19 Anaerobic/Aerobic Culture, Resulted Pending 01/19/19 Anaerobic Culture Result 1 (BASIA), Resulted Pending 01/19/19 Aerobic Culture, Resulted Pending 01/19/19 Aerobic Culture Result 1 (BASIA), Resulted Pending 01/19/19 Gram Stain - Final, Resulted 01/19/19 Gram Stain Result 1 (BASIA) - Final, Resulted 01/19/19 Gram Stain Result 2 (BASIA) - Final, Resulted 01/20/19 - Final, Complete 01/20/19 - Final, Complete 01/20/19 - Final, Complete 01/20/19 Gram Stain Evaluation - Final, Complete 01/20/19 Sputum Culture - Final, Complete 01/20/19 Sputum Result 1 - Final, Complete 01/19/19 AFB Specimen Processing Tissue - Final, Resulted 01/19/19 Acid Fast Bacilli Culture, Resulted Pending 01/19/19 Gram Stain - Final, Resulted 01/16/19 Urine Culture - Final, Complete 01/16/19 Urine Culture Result 1 (BASIA) - Final, Complete Medications Current Medications Propofol (Diprivan) 200 mg 1X ONCE IV ; Start 01/15/19 at 15:00; Stop 01/15/19 at 15:06; Status DC Midazolam HCl (Versed) 5 mg 1X ONCE IV Last administered on 01/15/19at 15:59; Start 01/15/19 at 15:00; Stop 01/15/19 at 15:01; Status DC Propofol 50 ml @ As Directed STK-MED ONCE IV ; Start 01/15/19 at 15:02; Stop 01/15/19 at 15:03; Status DC Midazolam HCl 100 ml @ 0 mls/hr 1X ONCE IV Last administered on 01/15/19at 15:19; Start 01/15/19 at 15:15; Stop 01/15/19 at 15:16; Status DC Calcium Gluconate (Calcium Gluconate) 1,000 mg 1X ONCE IVP Last administered on 01/15/19at 15:58; Start 01/15/19 at 15:30; Stop 01/15/19 at 15:31; Status DC Norepinephrine Bitartrate 250 ml @ 1.875 mls/ hr CONT PRN IV SEE I/O RECORD Last administered on 01/20/19at 04:15; Start 01/15/19 at 17:00; Stop 01/22/19 at 10:32; Status DC Piperacillin Sod/ Tazobactam Sod (Zosyn Per Pharmacy) 1 each PRN DAILY PRN MC SEE COMMENTS; Start 01/15/19 at 17:15; Stop 01/24/19 at 10:37; Status DC Albuterol Sulfate (Ventolin Neb Soln) 2.5 mg PRN Q4HRS PRN NEB SHORTNESS OF BREATH; Start 01/15/19 at 17:15 Midazolam HCl 100 ml @ 5 mls/hr CONT PRN IV SEE I/O RECORD Last administered on 01/19/19at 05:03; Start 01/15/19 at 17:15; Stop 01/20/19 at 09:46; Status DC Fentanyl Citrate (Fentanyl 2ml Vial) 50 mcg PRN Q2HR PRN IV PAIN Last administered on 01/25/19at 07:30; Start 01/15/19 at 17:15 Piperacillin Sod/ Tazobactam Sod 2.25 gm/Sodium Chloride 50 ml @ 100 mls/hr Q6HRS IV Last administered on 01/19/19at 05:59; Start 01/15/19 at 18:00; Stop 01/19/19 at 11:25; Status DC Albuterol Sulfate (Ventolin Neb Soln) 2.5 mg RTBID NEB Last administered on 01/25/19at 08:43; Start 01/15/19 at 20:00 Amiodarone HCl (Cordarone) 200 mg DAILY PO Last administered on 01/25/19at 08:31; Start 01/16/19 at 09:00 Aspirin (Dieudonne Aspirin) 325 mg DAILY PO Last administered on 01/25/19at 08:29; Start 01/16/19 at 09:00 Atorvastatin Calcium (Lipitor) 10 mg HS PO Last administered on 01/24/19at 22:50; Start 01/15/19 at 21:00 Carvedilol (Coreg) 3.125 mg BIDWMEALS PO ; Start 01/15/19 at 18:30; Stop 01/18/19 at 14:39; Status DC Docusate Sodium (Colace) 100 mg PRN DAILY PRN PO hard stools; Start 01/15/19 at 17:15 Furosemide (Lasix) 40 mg BID94 PO ; Start 01/16/19 at 09:00; Stop 01/16/19 at 10:50; Status DC Mirtazapine (Remeron) 7.5 mg DAILY PO ; Start 01/16/19 at 09:00; Stop 01/16/19 at 09:00; Status DC Tramadol HCl (Ultram) 25 mg PRN Q6HRS PRN PO MODERATE PAIN Last administered on 01/23/19 20:14; Start 01/15/19 at 17:15 Acetaminophen (Tylenol) 650 mg PRN Q4HRS PRN PO FEVER Last administered on 01/15/19at 20:57; Start 01/15/19 at 17:15; Stop 01/16/19 at 08:07; Status DC Ascorbic Acid (Vitamin C) 500 mg DAILY PO Last administered on 01/25/19 08:29; Start 01/16/19 at 09:00 Magnesium Hydroxide (Milk Of Magnesia) 2,400 mg PRN DAILY PRN PO CONSTIPATION; Start 01/15/19 at 18:45 Ondansetron HCl (Zofran Odt) 4 mg PRN Q6HRS PRN PO NAUSEA/VOMITING; Start 01/15/19 at 18:45 Pantoprazole Sodium (Protonix) 40 mg DAILYAC PO Last administered on 01/18/19at 07:52; Start 01/16/19 at 07:30; Stop 01/18/19 at 08:02; Status DC Quetiapine Fumarate (SEROquel) 12.5 mg PRN Q6HRS PRN PO AGITATION Last administered on 01/25/19 08:29; Start 01/15/19 at 17:15 Quetiapine Fumarate (SEROquel) 25 mg QHS PO Last administered on 01/17/19at 21:08; Start 01/15/19 at 21:00; Stop 01/18/19 at 14:39; Status DC Thiamine Mononitrate (Vitamin B-1) 100 mg DAILY PO Last administered on 01/25/19 08:30; Start 01/16/19 at 09:00 Vancomycin HCl (Vanco Per Pharmacy) 1 each PRN DAILY PRN MC SEE COMMENTS Last administered on 01/15/19at 21:10; Start 01/15/19 at 17:45; Stop 01/16/19 at 08:06; Status DC Piperacillin Sod/ Tazobactam Sod (Zosyn Per Pharmacy) 1 each PRN DAILY PRN MC SEE COMMENTS; Start 01/15/19 at 17:45; Status UNV Insulin Human Lispro (HumaLOG) 0-5 UNITS TIDWMEALS SQ ; Start 01/16/19 at 08:00; Stop 01/16/19 at 08:00; Status DC Dextrose (Dextrose 50%-Water Syringe) 12.5 gm PRN Q15MIN PRN IV SEE COMMENTS; Start 01/15/19 at 17:45 Vancomycin HCl 2 gm/Sodium Chloride 500 ml @ 250 mls/hr 1X ONCE IV Last administered on 01/15/19at 20:56; Start 01/15/19 at 20:00; Stop 01/15/19 at 21:59; Status DC Insulin Human Lispro (HumaLOG) 0-5 UNITS Q6HRS SQ Last administered on 01/20/19at 12:47; Start 01/16/19 at 00:00 Vancomycin HCl 1.25 gm/Sodium Chloride 250 ml @ 167 mls/hr Q24H IV ; Start at 21:00; Stop 01/16/19 at 21:00; Status DC Vancomycin HCl (Vancomycin Trough Level) 1 each 1X ONCE MC ; Start 01/17/19 at 20:30; Stop 01/17/19 at 20:31; Status Cancel Mirtazapine (Remeron) 7.5 mg QHS PO Last administered on 01/24/19at 22:50; Start 01/16/19 at 21:00 Linezolid/Dextrose 300 ml @ 300 mls/hr Q12HR IV Last administered on 01/19/19at 21:52; Start 01/16/19 at 09:00; Stop 01/20/19 at 08:26; Status DC Acetaminophen (Tylenol) 650 mg PRN Q4HRS PRN PEG MILD PAIN / TEMP Last administered on 01/24/19at 08:11; Start 01/16/19 at 08:15 Famotidine (Pepcid) 20 mg QHS PO Last administered on 01/17/19at 21:08; Start 01/16/19 at 21:00; Stop 01/18/19 at 13:06; Status DC Heparin Sodium (Porcine) (Heparin Sodium) 5,000 unit Q12HR SQ Last administered on 01/18/19 13:18; Start 01/16/19 at 21:00; Stop 01/19/19 at 20:15; Status DC Sodium Chloride 500 ml @ 250 mls/hr Q1HR PRN IV HYPOTENTION; Start 01/17/19 at 19:15 Pantoprazole Sodium (PROTONIX VIAL for IV PUSH) 40 mg DAILYAC IVP Last administered on 01/22/19 08:33; Start 01/19/19 at 07:30; Stop 01/22/19 at 11:39; Status DC Piperacillin Sod/ Tazobactam Sod 3.375 gm/Sodium Chloride 50 ml @ 100 mls/hr Q6HRS IV Last administered on 01/24/19 05:57; Start 01/19/19 at 12:00; Stop 01/24/19 at 08:40; Status DC Magnesium Sulfate 50 ml @ 25 mls/hr 1X ONCE IV Last administered on 01/19/19 15:04; Start 01/19/19 at 12:30; Stop 01/19/19 at 14:29; Status DC Dobutamine HCl/ Dextrose 250 ml @ 6.302 mls/ hr CONT PRN IV SEE I/O RECORD Last administered on 01/21/19 07:23; Start 01/19/19 at 16:00; Stop 01/24/19 at 19:57; Status DC Heparin Sodium (Porcine) (Heparin Sodium) 5,000 unit Q12HR SQ Last administered on 01/25/19 08:32; Start 01/20/19 at 01:45 Multivitamins (Thera-Plus Oral Liquid) 5 ml DAILY PEG Last administered on 01/25/19 08:30; Start 01/21/19 at 09:00 Potassium Chloride (KCl Oral Soln) 40 meq 1X ONCE PO Last administered on 01/21/19 11:56; Start 01/21/19 at 11:00; Stop 01/21/19 at 11:01; Status DC Lansoprazole (Prevacid) 30 mg DAILY NG Last administered on 01/25/19 08:30; Start 01/23/19 at 09:00 Potassium Chloride/Water 50 ml @ 50 mls/hr 1X ONCE IV Last administered on 01/23/19at 10:11; Start 01/23/19 at 10:00; Stop 01/23/19 at 10:59; Status DC Potassium Chloride (KCl Oral Soln) 20 meq 1X ONCE NG ; Start 01/23/19 at 10:15; Stop 01/23/19 at 10:16; Status DC Amoxicillin/ Clavulanate Potassium (Augmentin 875/ 125mg) 1 tab BID PO Last administered on 01/25/19at 08:29; Start 01/24/19 at 09:00 Furosemide (Lasix) 20 mg DAILY IVP ; Start 01/24/19 at 11:00; Stop 01/24/19 at 11:00; Status DC Furosemide (Lasix) 20 mg DAILY NG Last administered on 01/24/19at 11:19; Start 01/24/19 at 11:00 Potassium Chloride (KCl Oral Soln) 20 meq DAILY NG Last administered on 01/25/19at 08:29; Start 01/24/19 at 12:00 Active Scripts Active [Multivitamins,Therapeutic Liq] 5 ML Liquid 5 Ml PEG DAILY Heparin Sodium (Heparin Sodium,Porcine) 5,000 Unit/1 Ml Vial 5,000 Unit SQ Q12HR Zosyn 2.25 Gram Vial (Piperacillin Sodium/Tazobactam) 2.25 Gm Vial 1 Each MC PRN DAILY PRN 10 Days ID doctor to decide on duration of iv zosyn Reported Vitamin C (Ascorbate Calcium) 500 Mg Tablet 500 Mg PO DAILY Aspirin 325 Mg Tablet 1 Tab PO DAILY Zofran (Ondansetron Hcl) 4 Mg Tablet 4 Mg PO PRN Q6HRS PRN B-1 (Thiamine HCl) 100 Mg Tablet 100 Mg PO DAILY Acetaminophen 160 Mg/5 Ml Oral.susp 650 Mg PO PRN Q4HRS PRN Mirtazapine 7.5 Mg Tablet 7.5 Mg PO QHS Albuterol Sulfate Neb Soln (Albuterol Sulfate) 2.5 Mg/3 Ml Vial.neb 2.5 Mg NEB BID Atorvastatin Calcium 10 Mg Tablet 10 Mg PO HS Protonix (Pantoprazole Sodium) 20 Mg Tablet.dr 40 Mg PO DAILY Amiodarone Hcl 200 Mg Tablet 1 Tab PO DAILY Seroquel (Quetiapine Fumarate) 25 Mg Tablet 25 Mg PO HS Tramadol Hcl 50 Mg Tablet 25 Mg PO Q6HRS PRN Seroquel (Quetiapine Fumarate) 25 Mg Tablet 12.5 Mg PO PRN Q6HRS PRN Vitals/I & O Vital Sign - Last 24 Hours 01/24/19 01/24/19 01/24/19 01/24/19 11:00 12:00 12:00 13:00 Temp 97.6 97.6 Pulse 90 87 87 Resp 18 18 18 B/P (MAP) 90/54 (66) 100/53 (69) 102/54 (70) Pulse Ox 97 94 94 O2 Delivery Nasal Cannula Nasal Cannula Nasal Cannula Nasal Cannula O2 Flow Rate 2.0 2.0 2.0 2.0 01/24/19 01/24/19 01/24/19 01/24/19 14:00 15:00 16:00 16:00 Temp 98.5 98.5 Pulse 80 81 85 Resp 16 16 15 B/P (MAP) 96/45 (62) 85/45 (58) 90/48 (62) Pulse Ox 99 98 100 O2 Delivery Nasal Cannula Nasal Cannula Nasal Cannula O2 Flow Rate 2.0 2.0 2.0 2.0 01/24/19 01/24/19 01/24/19 01/24/19 20:00 20:00 20:21 20:21 Temp 97.6 97.6 Pulse 88 Resp 16 B/P (MAP) 120/77 (91) Pulse Ox 90 O2 Delivery Nasal Cannula Room Air Room Air O2 Flow Rate 2.0 2.0 01/24/19 01/25/19 01/25/19 01/25/19 23:41 00:00 03:03 03:50 Temp 97.7 97.7 Pulse 95 101 Resp 16 16 B/P (MAP) 111/59 (76) Pulse Ox 91 93 O2 Delivery Nasal Cannula Nasal Cannula Nasal Cannula O2 Flow Rate 2.0 2.0 2.0 2.0 01/25/19 01/25/19 01/25/19 01/25/19 04:00 07:30 07:37 07:39 Pulse Ox 93 O2 Delivery Nasal Cannula Nasal Cannula O2 Flow Rate 2.0 2.0 2.0 2.0 01/25/19 01/25/19 01/25/19 01/25/19 08:00 08:09 08:31 08:43 Temp 98.1 98.1 Pulse 104 104 Resp 18 B/P (MAP) 133/78 (96) 133/78 Pulse Ox 96 93 94 O2 Delivery Nasal Cannula Nasal Cannula Nasal Cannula O2 Flow Rate 2.0 2.0 2.0 Intake and Output 01/24/19 01/24/19 01/25/19 14:59 22:59 06:59 Intake Total 240 ml 830 ml 350 ml Output Total 250 ml 125 ml 1400 ml Balance -10 ml 705 ml -1050 ml CHRISTINA CHAVARRIA MD January 25, 2019 10:32
--- NOTE | 2019-01-25 10:34 | PDOC ---
Renal-Progress Notes Subjective Notes Notes CONFUSED History of Present Illness Hx of present illness OVERALL IMPROVED Vitals Vitals Vital Signs Date Time Temp Pulse Resp B/P (MAP) Pulse Ox O2 Delivery O2 Flow Rate FiO2 01/25/19 08:43 94 Nasal Cannula 2.0 01/25/19 08:31 104 133/78 01/25/19 08:00 98.1 18 98.1 Weight Weight [ ] I.O. Intake and Output Intake and Output 01/25/19 06:59 Intake Total 1420 ml Output Total 1775 ml Balance -355 ml Intake Oral 0 ml Tube Feeding 830 ml Other 590 ml Output Urine Total 775 ml Stool Total 1000 ml Labs Labs Laboratory Tests Test 01/24/19 10:45 01/24/19 10:50 01/24/19 17:50 01/24/19 21:05 O2 Saturation 96 % (92-99) Arterial Blood pH 7.31 (7.35-7.45) Arterial Blood pCO2 at Patient Temp 56 mmHg (35-46) Arterial Blood pO2 at Patient Temp 87 mmHg (65-108) Arterial Blood HCO3 28 mmol/L (21-28) Arterial Blood Base Excess 1 mmol/L (-3-3) FiO2 28 Glucose (Fingerstick) 87 mg/dL (70-99) 89 mg/dL (70-99) 82 mg/dL (70-99) Test 01/25/19 00:05 01/25/19 03:40 01/25/19 05:46 Glucose (Fingerstick) 85 mg/dL (70-99) 95 mg/dL (70-99) White Blood Count 7.2 x10^3/uL (4.0-11.0) Red Blood Count 3.32 x10^6/uL (3.50-5.40) Hemoglobin 9.8 g/dL (12.0-15.5) Hematocrit 31.2 % (36.0-47.0) Mean Corpuscular Volume 94 fL (79-100) Mean Corpuscular Hemoglobin 30 pg (25-35) Mean Corpuscular Hemoglobin Concent 31 g/dL (31-37) Red Cell Distribution Width 19.6 % (11.5-14.5) Platelet Count 217 x10^3/uL (140-400) Neutrophils (%) (Auto) 78 % (31-73) Lymphocytes (%) (Auto) 9 % (24-48) Monocytes (%) (Auto) 9 % (0-9) Eosinophils (%) (Auto) 3 % (0-3) Basophils (%) (Auto) 1 % (0-3) Neutrophils # (Auto) 5.6 x10^3uL (1.8-7.7) Lymphocytes # (Auto) 0.7 x10^3/uL (1.0-4.8) Monocytes # (Auto) 0.6 x10^3/uL (0.0-1.1) Eosinophils # (Auto) 0.2 x10^3/uL (0.0-0.7) Basophils # (Auto) 0.1 x10^3/uL (0.0-0.2) Sodium Level 146 mmol/L (136-145) Potassium Level 3.6 mmol/L (3.5-5.1) Chloride Level 109 mmol/L (98-107) Carbon Dioxide Level 30 mmol/L (21-32) Anion Gap 7 (6-14) Blood Urea Nitrogen 44 mg/dL (7-20) Creatinine 1.4 mg/dL (0.6-1.0) Estimated GFR (Cockcroft-Gault) 37.1 Glucose Level 109 mg/dL (70-99) Calcium Level 8.8 mg/dL (8.5-10.1) Micro Micro Microbiology 01/16/19 Blood Culture - Final, Complete NO GROWTH AFTER 5 DAYS 01/19/19 Anaerobic/Aerobic Culture, Resulted Pending 01/19/19 Anaerobic Culture Result 1 (BAISA), Resulted Pending 01/19/19 Aerobic Culture, Resulted Pending 01/19/19 Aerobic Culture Result 1 (BASIA), Resulted Pending 01/19/19 Gram Stain - Final, Resulted 01/19/19 Gram Stain Result 1 (BASIA) - Final, Resulted 01/19/19 Gram Stain Result 2 (BASIA) - Final, Resulted 01/20/19 - Final, Complete 01/20/19 - Final, Complete 01/20/19 - Final, Complete 01/20/19 Gram Stain Evaluation - Final, Complete 01/20/19 Sputum Culture - Final, Complete 01/20/19 Sputum Result 1 - Final, Complete 01/19/19 AFB Specimen Processing Tissue - Final, Resulted 01/19/19 Acid Fast Bacilli Culture, Resulted Pending 01/19/19 Gram Stain - Final, Resulted 01/16/19 Urine Culture - Final, Complete 01/16/19 Urine Culture Result 1 (BASIA) - Final, Complete Review of Systems Constitutional: yes: other (UNABLE TO OBTAIN) Physical Exam General Appearance: no apparent distress Skin: warm Respiratory: decreased breath sounds Heart: S1S2 Abdomen: soft, bowel sounds present Genitourinary: bladder flat Extremities: pulses present Neurology: other (drowsy) Assessment Assessment IMP NICKIE-RESOLVED MILD HYPOKALEMIA-RESOLVED HYPERNATREMIA-MILD ACUTE RESP FAILURE CMI WITH EF OF 15-20% PLEURAL EFFUSION-S/P THORACENTESIS DYSPHAGIA PLAN LASIX STARTED OVERALL STABLE FROM RENAL STANDPOINT WILL SIGN OFF HERNANDEZ LOUIS MD January 25, 2019 10:34
--- NOTE | 2019-01-25 11:55 | PDOC ---
Infectious Disease Note Subjective: Subjective Pt transferred to floor from icu Pt remains confused on tube feedings Supplemental O2 ROS: ROS Negative except for above. Vital Signs: Vital Signs Vital Signs Date Time Temp Pulse Resp B/P (MAP) Pulse Ox O2 Delivery O2 Flow Rate FiO2 01/25/19 11:20 94 Nasal Cannula 2.0 01/25/19 08:31 104 133/78 01/25/19 08:00 98.1 18 98.1 Physical Exam: PHYSICAL EXAM GENERAL: alert awake, confused conversing with someone not seen, mitts HEENT: Oral cavity dry, edentulous Dobhoff in place NECK: Supple, no JVP, no lymphadenopathy. LUNGS: Decreased breath sounds. HEART: S1, S2 regular. ABDOMEN: Soft, nontender. Rectal tube in place : Kahn EXTREMITIES: No edema or cyanosis. SCDs SKIN: No rash. sacrococcygeal area of stage 3 decubitus. NEUROLOGIC: Alert and confused LUE-PICC clean Medications: Inpatient Meds: Current Medications Medications (Trade) Dose Ordered Sig/Destiny Start Time Stop Time Status Last Admin Dose Admin Acetaminophen (Tylenol) 650 mg PRN Q4HRS PRN 01/16/19 08:15 01/24/19 08:11 650 MG Albuterol Sulfate (Ventolin Neb Soln) 2.5 mg RTBID 01/15/19 20:00 01/25/19 08:43 2.5 MG Amiodarone HCl (Cordarone) 200 mg DAILY 01/16/19 09:00 01/25/19 08:31 200 MG Amoxicillin/ Clavulanate Potassium (Augmentin 875/ 125mg) 1 tab BID 01/24/19 09:00 01/25/19 08:29 1 TAB Ascorbic Acid (Vitamin C) 500 mg DAILY 01/16/19 09:00 01/25/19 08:29 500 MG Aspirin (Dieudonne Aspirin) 325 mg DAILY 01/16/19 09:00 01/25/19 08:29 325 MG Atorvastatin Calcium (Lipitor) 10 mg HS 01/15/19 21:00 01/24/19 22:50 10 MG Calcium Gluconate (Calcium Gluconate) 1,000 mg 1X ONCE 01/15/19 15:30 01/15/19 15:31 DC 01/15/19 15:58 1,000 MG Carvedilol (Coreg) 3.125 mg BIDWMEALS 01/15/19 18:30 01/18/19 14:39 DC Dextrose (Dextrose 50%-Water Syringe) 12.5 gm PRN Q15MIN PRN 01/15/19 17:45 Dobutamine HCl/ Dextrose 250 ml @ 6.302 mls/ hr CONT PRN 01/19/19 16:00 01/24/19 19:57 DC 01/21/19 07:23 6.302 MLS/HR Docusate Sodium (Colace) 100 mg PRN DAILY PRN 01/15/19 17:15 Famotidine (Pepcid) 20 mg QHS 01/16/19 21:00 01/18/19 13:06 DC 01/17/19 21:08 20 MG Fentanyl Citrate (Fentanyl 2ml Vial) 50 mcg PRN Q2HR PRN 01/15/19 17:15 01/25/19 11:20 50 MCG Furosemide (Lasix) 20 mg DAILY 01/24/19 11:00 01/24/19 11:19 20 MG Heparin Sodium (Porcine) (Heparin Sodium) 5,000 unit Q12HR 01/20/19 01:45 01/25/19 08:32 5,000 UNIT Insulin Human Lispro (HumaLOG) 0-5 UNITS Q6HRS 01/16/19 00:00 01/20/19 12:47 2 UNITS Lansoprazole (Prevacid) 30 mg DAILY 01/23/19 09:00 01/25/19 08:30 30 MG Linezolid/Dextrose 300 ml @ 300 mls/hr Q12HR 01/16/19 09:00 01/20/19 08:26 DC 01/19/19 21:52 300 MLS/HR Magnesium Hydroxide (Milk Of Magnesia) 2,400 mg PRN DAILY PRN 01/15/19 18:45 Magnesium Sulfate 50 ml @ 25 mls/hr 1X ONCE 01/19/19 12:30 01/19/19 14:29 DC 01/19/19 15:04 25 MLS/HR Midazolam HCl 100 ml @ 5 mls/hr CONT PRN 01/15/19 17:15 01/20/19 09:46 DC 01/19/19 05:03 8 MLS/HR Midazolam HCl (Versed) 5 mg 1X ONCE 01/15/19 15:00 01/15/19 15:01 DC 01/15/19 15:59 5 MG Mirtazapine (Remeron) 7.5 mg QHS 01/16/19 21:00 01/24/19 22:50 7.5 MG Multivitamins (Thera-Plus Oral Liquid) 5 ml DAILY 01/21/19 09:00 01/25/19 08:30 5 ML Norepinephrine Bitartrate 250 ml @ 1.875 mls/ hr CONT PRN 01/15/19 17:00 01/22/19 10:32 DC 01/20/19 04:15 13.125 MLS/HR Ondansetron HCl (Zofran Odt) 4 mg PRN Q6HRS PRN 01/15/19 18:45 Pantoprazole Sodium (PROTONIX VIAL for IV PUSH) 40 mg DAILYAC 01/19/19 07:30 01/22/19 11:39 DC 01/22/19 08:33 40 MG Pantoprazole Sodium (Protonix) 40 mg DAILYAC 01/16/19 07:30 01/18/19 08:02 DC 01/18/19 07:52 40 MG Piperacillin Sod/ Tazobactam Sod (Zosyn Per Pharmacy) 1 each PRN DAILY PRN 01/15/19 17:45 UNV Piperacillin Sod/ Tazobactam Sod 2.25 gm/Sodium Chloride 50 ml @ 100 mls/hr Q6HRS 01/15/19 18:00 01/19/19 11:25 DC 01/19/19 05:59 100 MLS/HR Piperacillin Sod/ Tazobactam Sod 3.375 gm/Sodium Chloride 50 ml @ 100 mls/hr Q6HRS 01/19/19 12:00 01/24/19 08:40 DC 01/24/19 05:57 100 MLS/HR Potassium Chloride/Water 50 ml @ 50 mls/hr 1X ONCE 01/23/19 10:00 01/23/19 10:59 DC 01/23/19 10:11 50 MLS/HR Potassium Chloride (KCl Oral Soln) 20 meq DAILY 01/24/19 12:00 01/25/19 08:29 20 MEQ Propofol 50 ml @ As Directed STK-MED ONCE 01/15/19 15:02 01/15/19 15:03 DC Propofol (Diprivan) 200 mg 1X ONCE 01/15/19 15:00 01/15/19 15:06 DC Quetiapine Fumarate (SEROquel) 25 mg QHS 01/15/19 21:00 01/18/19 14:39 DC 01/17/19 21:08 25 MG Sodium Chloride 500 ml @ 250 mls/hr Q1HR PRN 01/17/19 19:15 Thiamine Mononitrate (Vitamin B-1) 100 mg DAILY 01/16/19 09:00 01/25/19 08:30 100 MG Tramadol HCl (Ultram) 25 mg PRN Q6HRS PRN 01/15/19 17:15 01/23/19 20:14 25 MG Vancomycin HCl (Vanco Per Pharmacy) 1 each PRN DAILY PRN 01/15/19 17:45 01/16/19 08:06 DC 01/15/19 21:10 1 EACH Vancomycin HCl (Vancomycin Trough Level) 1 each 1X ONCE 01/17/19 20:30 01/17/19 20:31 Cancel Vancomycin HCl 1.25 gm/Sodium Chloride 250 ml @ 167 mls/hr Q24H 01/16/19 21:00 01/16/19 21:00 DC Vancomycin HCl 2 gm/Sodium Chloride 500 ml @ 250 mls/hr 1X ONCE 01/15/19 20:00 01/15/19 21:59 DC 01/15/19 20:56 250 MLS/HR Labs: Lab Laboratory Tests Test 01/24/19 17:50 01/24/19 21:05 01/25/19 00:05 01/25/19 03:40 Glucose (Fingerstick) 89 mg/dL (70-99) 82 mg/dL (70-99) 85 mg/dL (70-99) White Blood Count 7.2 x10^3/uL (4.0-11.0) Red Blood Count 3.32 x10^6/uL (3.50-5.40) Hemoglobin 9.8 g/dL (12.0-15.5) Hematocrit 31.2 % (36.0-47.0) Mean Corpuscular Volume 94 fL (79-100) Mean Corpuscular Hemoglobin 30 pg (25-35) Mean Corpuscular Hemoglobin Concent 31 g/dL (31-37) Red Cell Distribution Width 19.6 % (11.5-14.5) Platelet Count 217 x10^3/uL (140-400) Neutrophils (%) (Auto) 78 % (31-73) Lymphocytes (%) (Auto) 9 % (24-48) Monocytes (%) (Auto) 9 % (0-9) Eosinophils (%) (Auto) 3 % (0-3) Basophils (%) (Auto) 1 % (0-3) Neutrophils # (Auto) 5.6 x10^3uL (1.8-7.7) Lymphocytes # (Auto) 0.7 x10^3/uL (1.0-4.8) Monocytes # (Auto) 0.6 x10^3/uL (0.0-1.1) Eosinophils # (Auto) 0.2 x10^3/uL (0.0-0.7) Basophils # (Auto) 0.1 x10^3/uL (0.0-0.2) Sodium Level 146 mmol/L (136-145) Potassium Level 3.6 mmol/L (3.5-5.1) Chloride Level 109 mmol/L (98-107) Carbon Dioxide Level 30 mmol/L (21-32) Anion Gap 7 (6-14) Blood Urea Nitrogen 44 mg/dL (7-20) Creatinine 1.4 mg/dL (0.6-1.0) Estimated GFR (Cockcroft-Gault) 37.1 Glucose Level 109 mg/dL (70-99) Calcium Level 8.8 mg/dL (8.5-10.1) Test 01/25/19 05:46 Glucose (Fingerstick) 95 mg/dL (70-99) Micro RUN DATE: 01/20/19 PAGE 1 RUN TIME: 2009 [facility] [address] [place] [address] Zia Keller M.D., Screen Operator PATIENT: VASILIY ESPINAL ACCT: [id number] LOC: 1 WEST ICU U: [id number] AGE/SX: 73/F ROOM: 108 RE01/15/[address]: MICHELLE PASTOR MD : 1945 BED: 1 DIS: STATUS: ADM IN TLOC: SPEC #: [id number] LIAN: 01/19/19 STATUS: RES REQ #: [id number] RECD: 01/19/[address]: GISELLA MCNEAL MD SOURCE: PLEURAL FL ENTR: 01/18/[address] [facility] [address]: MICHELINE RYAN MD SPDC: CHRISTINA CHAVARRIA MD, AHMED M MD NAIR, VENU S MD PASNOORI, VENKAT R MD ORDERED: ANAER/AEROB/GS Procedure Result ANAEROBIC-AEROBIC CULTURE PENDING ANAEROBIC RES 1 PENDING AEROBIC CULT PENDING AEROBIC RES 1 PENDING GRAM STAIN Final Final report GRAM STAIN RES 1 Final Comment No white blood cells seen. GRAM STAIN RES 2 Final No organisms seen Performed at: DA - [facility] [place] [address], [place], [place] [id number] Counter Control Operator: OSVALDO Freeman MD, Phone: [phone] RUN DATE: 01/22/19 PAGE 1 RUN TIME: 3095 [facility] [address] [place] [address] Zia Keller M.D., Screen Operator PATIENT: VASILIY ESPINAL ACCT: [id number] LOC: 1 [facility] U: [id number] AGE/SX: 73/F ROOM: 108 RE01/15/[address]: CHRISTINA CHAVARRIA MD : 1945 BED: 1 DIS: STATUS: ADM IN TLOC: SPEC #: [id number] LAIN: 01/20/19 STATUS: VIKASH REQ #: [id number] RECD: 01/20/[address]: MICHELINE RYAN MD SOURCE: SPUTUM ENTR: 01/20/[address] [facility] [address]: CHRISTINA CHAVARRIA MD [facility]: MICHELLE PASTOR MD, VENU S MD PASNOORI, VENKAT R MD SISILLO, SABATO MD ORDERED: SPUTUM CULTURE -- Procedure Result GRAM STAIN WHITE BLOOD CELLS Final Few GRAM STAIN EPITHELIAL CELLS Final None seen GRAM STAIN RESULT 1 Final Comment Few gram positive cocci GRAM STAIN EVALUATION Final Comment This specimen is of good quality and is acceptable for routine bacterial culture. Performed at: [address] [id number] Counter Control Operator: OSVALDO Freeman MD, Phone: [phone] SPUTUM CULTURE- Final Final report SPUTUM CULT RES 1 Final Yeast isolated. 3+ Request for further identification must be made within 1 week. Performed at: [address] [id number] Counter Control Operator: OSVALDO Freeman MD, Phone: [phone] Objective: Assessment: Fever, resolved Left loculated effusion, s/p thoracentesis on 01/19. Cultures pending. sputum GPC 01/20 Respiratory failure s/p extubation Circulatory failure CHF/Cardiomyopathy A fib, on amiodarone DM Stage 3 , sacral ulcer Anemia s/p PRBCs Yeast in urine, 01/16 Dysphagia Encephalopathy improving Plan: Plan of Care cont augmentin Off Zyvox and zosyn f/u cultures maintain aspiration precautions local wound care d/w JEFF NETTLES MD January 25, 2019 11:55
[2019-01-25 12:00] VITALS: BP 126/75
[2019-01-25] MEDS: FUROSEMIDE 40 MG/4 ML ORAL SOLUTION. NG SCH (12:43)
[2019-01-25] MEDS ORDERED: BARIUM SULFATE 40% (APPLE) 148 GM PWD. PO ONE (13:15)
--- NOTE | 2019-01-25 14:07 | RAD ---
Video dysphasia study, 01/25/2019: History: Dysphasia The swallowing mechanism was examined fluoroscopically in the lateral projection while the patient ingested a variety of food materials mixed with barium. 3.6 minutes of fluoroscopy time was utilized. One video fluoroscopic loop was recorded by a member of the speech Department. When ingesting the thin liquids there was deep laryngeal penetration and eli aspiration. With the nectar consistency materials and the honey thickened materials the laryngeal penetration initially abated. When ingesting the pudding consistency material and the barium coated solids there was a moderate amount of vallecular and base of tongue residue. Subsequent swallows of the honey thickened material in the presence of this residue produced deep laryngeal penetration and aspiration. Ingestion of the nectar consistency material in the presence of the residue resulted in deep laryngeal penetration. IMPRESSION: 1. Aspiration of the thin liquids which initially abated when the honey thickened material was utilized. 2. Moderate vallecular and base of tongue residue following ingestion of the pudding consistency and solid materials. 3. Recurrent aspiration on the honey thickened material within ingested in the presence of the vallecula and base of tongue residue.
[2019-01-25 15:00] VITALS: BP 129/66
--- NOTE | 2019-01-25 15:16 | NUR ---
RUDY following Pt. Insurance has denied LTAC placement and has been trying to set up peer to peer but unsuccessful as phone line has been disconnected after 45 min wait. Spoke with [employer] and they will have to wait 5 more days to do an appeal if peer to peer is not done but can submit appeal right away if peer to peer is denied. Pt currently on NG tube, require bipap at night, needs wound care and also has mitten restraints. Due to restraints, Pt won't qualify for SNU evaluation at this time and Physician also reported pt will need higher level of care. Discussed with RN.
--- NOTE | 2019-01-25 15:21 | RAD ---
Portable chest, 01/25/2019: HISTORY: Congestive heart failure Comparison is made to yesterday's study. A left PICC extends to the level the atrial caval junction. A Dobbhoff tube remains in place although it is not visible distally. The heart is enlarged. There are moderate ongoing lower chest opacities compatible with a combination of pleural fluid and underlying atelectasis/infiltrate. These findings are unchanged. No new abnormality is detected. IMPRESSION: No significant change since yesterday's study. Electronically signed by: Robin Howard MD (01/25/2019 3:18 PM) [facility]
[2019-01-25 18:13] LABS: BASE EXCESS ABG 2 mmol/L (-3-3); HCO3 ABG 26 mmol/L (21-28); PCO2 ABG 41 mmHg (35-46); PO2 ABG 54 mmHg (65-108); SAT O2 ABG 88 % (92-99)
[2019-01-25 18:16] LABS: FIO2 ABG 24
[2019-01-25 19:46] VITALS: BP 117/65
[2019-01-25] MEDS: ATORVASTATIN CALCIUM 10 MG TABLET. PO SCH (21:07)
[2019-01-25] MEDS: MIRTAZAPINE 7.5 MG TABLET. PO SCH (21:07)
--- NOTE | 2019-01-25 21:30 | NUR ---
PLACED PT ON BIPAP, PT WORE BIPAP FOR 40 MINUTES THEN TOOK IT OFF, REFUSING ADAMANTLY.
[2019-01-25 23:57] VITALS: BP 138/99
--- NOTE | 2019-01-26 00:45 | NUR ---
Pt confused. Constantly requesting water or something to drink despite being instructed that all fluids go into lungs. Pt reported she didn't care, it was her life. Pt yelling out for most of shift for family members. Pt spitting. RN attempted to give pt heparin shot and pt refused as she wasn't going to get water or ice. Pt reported seeing a peeping Harvinder out side window, when RN informed pt that pt was on 6th floor and it wasn't possible for there to be a peeping harvinder, pt refused to let blinds be closed as she wanted "him to see everything." Pt refused BiPAP this shift. While pt pulling at BiPAP mask created a skin tear on R posterior FA - pic taken and placed in chart. Will continue to monitor pt status closely. Addendum: 01/26/19 at 0641 by MARYANA OQUENDO RN RN Pt requesting water from the ditch this morning. When RN instructed pt that water wouldn't be gotten out of the ditch, pt ordered RN out of the room. RN attempted to re-orient pt with no success. Will continue to monitor.
[2019-01-26 03:05] VITALS: BP 95/60
[2019-01-26] MEDS: INSULIN LISPRO 300 UNITS/3 ML INSULN.PEN. SQ SCH ×4 (06:00→18:00)
[2019-01-26] MEDS ORDERED: HALOPERIDOL LACTATE 5 MG/ML VIAL. IVP ONE (07:00)
[2019-01-26 07:26] VITALS: BP 130/77
[2019-01-26] MEDS ORDERED: HALOPERIDOL LACTATE 5 MG/ML VIAL. IVP PRN (07:30)
[2019-01-26] MEDS: ALBUTEROL SULFATE 2.5 MG/3 ML NEBU. NEB SCH ×2 (08:16→22:25)
--- NOTE | 2019-01-26 09:02 | PDOC ---
PULMONARY PROGRESS NOTES Subjective EXTUBATED 01/20 LESS CONFUSED TODAY NOW OFF BIAPAP KNEW HER AND PLACE OF RESIDENCE ON N/C 02 Vitals Vital Signs Date Time Temp Pulse Resp B/P (MAP) Pulse Ox O2 Delivery O2 Flow Rate FiO2 01/26/19 08:20 97 BiPAP/CPAP 01/26/19 07:41 2.0 01/26/19 07:26 98.4 60 24 130/77 (94) 98.4 ROS: No Nausea, No Chest Pain, No Abdominal Pain, No Increase Cough General: Alert, No acute distress, Confused Lungs: Clear Cardiovascular: S1, S2 Abdomen: Soft, Non-tender Extremities: Other (EDEMA) Skin: Warm Labs Laboratory Tests Test 01/24/19 10:45 01/24/19 10:50 01/24/19 17:50 01/24/19 21:05 O2 Saturation 96 % (92-99) Arterial Blood pH 7.31 (7.35-7.45) Arterial Blood pCO2 at Patient Temp 56 mmHg (35-46) Arterial Blood pO2 at Patient Temp 87 mmHg (65-108) Arterial Blood HCO3 28 mmol/L (21-28) Arterial Blood Base Excess 1 mmol/L (-3-3) FiO2 28 Glucose (Fingerstick) 87 mg/dL (70-99) 89 mg/dL (70-99) 82 mg/dL (70-99) Test 01/25/19 00:05 01/25/19 03:40 01/25/19 05:46 01/25/19 14:59 Glucose (Fingerstick) 85 mg/dL (70-99) 95 mg/dL (70-99) 107 mg/dL (70-99) White Blood Count 7.2 x10^3/uL (4.0-11.0) Red Blood Count 3.32 x10^6/uL (3.50-5.40) Hemoglobin 9.8 g/dL (12.0-15.5) Hematocrit 31.2 % (36.0-47.0) Mean Corpuscular Volume 94 fL (79-100) Mean Corpuscular Hemoglobin 30 pg (25-35) Mean Corpuscular Hemoglobin Concent 31 g/dL (31-37) Red Cell Distribution Width 19.6 % (11.5-14.5) Platelet Count 217 x10^3/uL (140-400) Neutrophils (%) (Auto) 78 % (31-73) Lymphocytes (%) (Auto) 9 % (24-48) Monocytes (%) (Auto) 9 % (0-9) Eosinophils (%) (Auto) 3 % (0-3) Basophils (%) (Auto) 1 % (0-3) Neutrophils # (Auto) 5.6 x10^3uL (1.8-7.7) Lymphocytes # (Auto) 0.7 x10^3/uL (1.0-4.8) Monocytes # (Auto) 0.6 x10^3/uL (0.0-1.1) Eosinophils # (Auto) 0.2 x10^3/uL (0.0-0.7) Basophils # (Auto) 0.1 x10^3/uL (0.0-0.2) Sodium Level 146 mmol/L (136-145) Potassium Level 3.6 mmol/L (3.5-5.1) Chloride Level 109 mmol/L (98-107) Carbon Dioxide Level 30 mmol/L (21-32) Anion Gap 7 (6-14) Blood Urea Nitrogen 44 mg/dL (7-20) Creatinine 1.4 mg/dL (0.6-1.0) Estimated GFR (Cockcroft-Gault) 37.1 Glucose Level 109 mg/dL (70-99) Calcium Level 8.8 mg/dL (8.5-10.1) Test 01/25/19 17:59 01/25/19 18:00 01/26/19 00:06 01/26/19 05:44 Glucose (Fingerstick) 95 mg/dL (70-99) 113 mg/dL (70-99) 114 mg/dL (70-99) O2 Saturation 88 % (92-99) Arterial Blood pH 7.43 (7.35-7.45) Arterial Blood pCO2 at Patient Temp 41 mmHg (35-46) Arterial Blood pO2 at Patient Temp 54 mmHg (65-108) Arterial Blood HCO3 26 mmol/L (21-28) Arterial Blood Base Excess 2 mmol/L (-3-3) FiO2 24 Laboratory Tests Test 01/25/19 14:59 01/25/19 17:59 01/25/19 18:00 01/26/19 00:06 Glucose (Fingerstick) 107 mg/dL (70-99) 95 mg/dL (70-99) 113 mg/dL (70-99) O2 Saturation 88 % (92-99) Arterial Blood pH 7.43 (7.35-7.45) Arterial Blood pCO2 at Patient Temp 41 mmHg (35-46) Arterial Blood pO2 at Patient Temp 54 mmHg (65-108) Arterial Blood HCO3 26 mmol/L (21-28) Arterial Blood Base Excess 2 mmol/L (-3-3) FiO2 24 Test 01/26/19 05:44 Glucose (Fingerstick) 114 mg/dL (70-99) Medications Active Scripts Medications Dose Route/Sig Max Daily Dose Days Date Category Vitamin C (Ascorbate Calcium) 500 Mg Tablet 500 Mg PO DAILY 01/15/19 Reported Aspirin 325 Mg Tablet 1 Tab PO DAILY 01/15/19 Reported Coreg (Carvedilol) 3.125 Mg Tablet 3.125 Mg PO BIDWMEALS 01/15/19 Reported Zofran (Ondansetron Hcl) 4 Mg Tablet 4 Mg PO PRN Q6HRS PRN 01/15/19 Reported B-1 (Thiamine HCl) 100 Mg Tablet 100 Mg PO DAILY 01/15/19 Reported Docusate Sodium 100 Mg Capsule 100 Mg PO PRN PRN 01/15/19 Reported Acetaminophen 160 Mg/5 Ml Oral.susp 650 Mg PO PRN Q4HRS PRN 01/15/19 Reported Milk Of Magnesia (Magnesium Hydroxide) 2,400 Mg/10 Ml Oral.susp 2,400 Mg PO PRN PRN 01/15/19 Reported Mirtazapine 7.5 Mg Tablet 7.5 Mg PO QHS 01/15/19 Reported Albuterol Sulfate Neb Soln (Albuterol Sulfate) 2.5 Mg/3 Ml Vial.neb 2.5 Mg NEB BID 01/15/19 Reported Atorvastatin Calcium 10 Mg Tablet 10 Mg PO HS 01/15/19 Reported Lasix (Furosemide) 40 Mg Tablet 40 Mg PO BID 01/15/19 Reported Protonix (Pantoprazole Sodium) 20 Mg Tablet.dr 40 Mg PO DAILY 01/15/19 Reported Amiodarone Hcl 200 Mg Tablet 1 Tab PO DAILY 01/15/19 Reported Seroquel (Quetiapine Fumarate) 25 Mg Tablet 25 Mg PO HS 01/15/19 Reported Tramadol Hcl 50 Mg Tablet 25 Mg PO Q6HRS PRN 01/15/19 Reported Seroquel (Quetiapine Fumarate) 25 Mg Tablet 12.5 Mg PO PRN Q6HRS PRN 01/15/19 Reported Comments CXR 01/22 IMPROVED LEFT EFFUSION/ MILD CHF, NO CHANGE Impression . IMPRESSION: 1. Acute respiratory failure, status post cardiopulmonary arrest, the patient transferred from [facility] extubated, on canula 2. Acute on chronic systolic heart failure. EF 40% 3. Abnormal x-ray compatible with bilateral airspace disease in the lower lobes, pneumonia./ CHF, left effusion, s/p left tap 01/19 4. Type 2 diabetes. 5. Severe protein malnutrition. 6. Thrombocytopenia. 7. History of pacemaker implantation. 8. Prior history of gastric ulcers. 9. ABNORMAL CXR 10 METABOLIC ENCE POA 11 DYSPHAGIA 12 DIARRHEA 13 HYPERCAPNIA Plan . PRN BIPAP 02 NC MENTATION IS BETTER TODAY WITH HALDOL PRN WILL ADD BENDRYL AT QHS D/C REMER[facility] PT NOT WELL ENOUGH TO GO TO SNU NEEDS HIGHER LEVEL OF CARE, INSURANCE HAS DENIED TRANSFER TO LTAC OFF DOBUATMMINE ON AMIODARONE WILL MONITOR FOR NOW FAILED VIDEO NEEDS NPO FOR NOW DOING WELL ON CANULA DECREASE 02 FLOW CARDIOLOGY REC DAUGHTER REPORTS MULTIPLE EPISODES OF APNEAS/ NO SLEEP STUDY IN PAST WILL NEED SS OP IF SHE CAN TOLERATE BIPAP GISELLA MCNEAL MD January 26, 2019 09:02
[2019-01-26] MEDS: AMOXICILLIN/K CLAV 875/125MG TABLET. PO SCH ×2 (09:08→22:51)
[2019-01-26] MEDS: MULTIVITAMINS,THERAPEUTIC 5 ML ORAL LIQUID. PEG SCH (09:08)
[2019-01-26] MEDS: ASPIRIN 325 MG TABLET PO SCH (09:08)
[2019-01-26] MEDS: POTASSIUM CHLORIDE 20 MEQ/15 ML ORAL LIQUID. NG SCH (09:08)
[2019-01-26] MEDS: THIAMINE 100 MG TABLET. PO SCH (09:08)
[2019-01-26] MEDS: AMIODARONE HCL 200 MG TABLET. PO SCH (09:09)
[2019-01-26] MEDS: ASCORBIC ACID 500 MG TABLET PO SCH (09:09)
[2019-01-26] MEDS: FUROSEMIDE 40 MG/4 ML ORAL SOLUTION. NG SCH (09:09)
[2019-01-26] MEDS: LANSOPRAZOLE 30 MG TAB.RAP.DR NG SCH (09:10)
[2019-01-26] MEDS: HEPARIN for SUB-Q USE 5,000 UNIT/ML VIAL. SQ SCH ×2 (09:11→23:00)
--- NOTE | 2019-01-26 09:23 | PDOC ---
Infectious Disease Note Subjective: Subjective Pt remains confused, now on bipap pulling out her nasal cannula and now bipap on tube feedings d/w RN Vital Signs: Vital Signs Vital Signs Date Time Temp Pulse Resp B/P (MAP) Pulse Ox O2 Delivery O2 Flow Rate FiO2 01/26/19 09:09 60 130/77 01/26/19 08:20 97 BiPAP/CPAP 01/26/19 07:41 2.0 01/26/19 07:26 98.4 24 98.4 Physical Exam: PHYSICAL EXAM GENERAL: alert awake, confused conversing with someone not seen, mitts on bipap HEENT: Oral cavity dry, edentulous Dobhoff in place NECK: Supple, LUNGS: Decreased breath sounds. HEART: S1, S2 ABDOMEN: Soft, nontender. EXTREMITIES: No edema or cyanosis. SCDs SKIN: No rash. sacrococcygeal area of stage 3 decubitus. NEUROLOGIC: Alert and confused LUE-PICC clean Medications: Inpatient Meds: Current Medications Medications (Trade) Dose Ordered Sig/Destiny Start Time Stop Time Status Last Admin Dose Admin Acetaminophen (Tylenol) 650 mg PRN Q4HRS PRN 01/16/19 08:15 01/24/19 08:11 650 MG Albuterol Sulfate (Ventolin Neb Soln) 2.5 mg RTBID 01/15/19 20:00 01/26/19 08:16 2.5 MG Amiodarone HCl (Cordarone) 200 mg DAILY 01/16/19 09:00 01/26/19 09:09 200 MG Amoxicillin/ Clavulanate Potassium (Augmentin 875/ 125mg) 1 tab BID 01/24/19 09:00 01/26/19 09:08 1 TAB Ascorbic Acid (Vitamin C) 500 mg DAILY 01/16/19 09:00 01/26/19 09:09 500 MG Aspirin (Dieudonne Aspirin) 325 mg DAILY 01/16/19 09:00 01/26/19 09:08 325 MG Atorvastatin Calcium (Lipitor) 10 mg HS 01/15/19 21:00 01/25/19 21:07 10 MG Barium Sulfate (Varibar Thin Liquid Apple) 148 gm 1X ONCE 01/25/19 13:15 01/25/19 13:16 DC 01/25/19 13:15 148 GM Calcium Gluconate (Calcium Gluconate) 1,000 mg 1X ONCE 01/15/19 15:30 01/15/19 15:31 DC 01/15/19 15:58 1,000 MG Carvedilol (Coreg) 3.125 mg BIDWMEALS 01/15/19 18:30 01/18/19 14:39 DC Dextrose (Dextrose 50%-Water Syringe) 12.5 gm PRN Q15MIN PRN 01/15/19 17:45 Dobutamine HCl/ Dextrose 250 ml @ 6.302 mls/ hr CONT PRN 01/19/19 16:00 01/24/19 19:57 DC 01/21/19 07:23 6.302 MLS/HR Docusate Sodium (Colace) 100 mg PRN DAILY PRN 01/15/19 17:15 Famotidine (Pepcid) 20 mg QHS 01/16/19 21:00 01/18/19 13:06 DC 01/17/19 21:08 20 MG Fentanyl Citrate (Fentanyl 2ml Vial) 50 mcg PRN Q2HR PRN 01/15/19 17:15 01/25/19 14:48 50 MCG Furosemide (Lasix) 20 mg DAILY 01/24/19 11:00 01/26/19 09:09 20 MG Haloperidol Lactate (Haldol Inj) 5 mg 1X PRN PRN 01/26/19 07:30 01/26/19 12:00 Heparin Sodium (Porcine) (Heparin Sodium) 5,000 unit Q12HR 01/20/19 01:45 01/26/19 09:11 5,000 UNIT Insulin Human Lispro (HumaLOG) 0-5 UNITS Q6HRS 01/16/19 00:00 01/20/19 12:47 2 UNITS Lansoprazole (Prevacid) 30 mg DAILY 01/23/19 09:00 01/26/19 09:10 30 MG Linezolid/Dextrose 300 ml @ 300 mls/hr Q12HR 01/16/19 09:00 01/20/19 08:26 DC 01/19/19 21:52 300 MLS/HR Magnesium Hydroxide (Milk Of Magnesia) 2,400 mg PRN DAILY PRN 01/15/19 18:45 Magnesium Sulfate 50 ml @ 25 mls/hr 1X ONCE 01/19/19 12:30 01/19/19 14:29 DC 01/19/19 15:04 25 MLS/HR Midazolam HCl 100 ml @ 5 mls/hr CONT PRN 01/15/19 17:15 01/20/19 09:46 DC 01/19/19 05:03 8 MLS/HR Midazolam HCl (Versed) 5 mg 1X ONCE 01/15/19 15:00 01/15/19 15:01 DC 01/15/19 15:59 5 MG Mirtazapine (Remeron) 7.5 mg QHS 01/16/19 21:00 01/25/19 21:07 7.5 MG Multivitamins (Thera-Plus Oral Liquid) 5 ml DAILY 01/21/19 09:00 01/26/19 09:08 5 ML Norepinephrine Bitartrate 250 ml @ 1.875 mls/ hr CONT PRN 01/15/19 17:00 01/22/19 10:32 DC 01/20/19 04:15 13.125 MLS/HR Ondansetron HCl (Zofran Odt) 4 mg PRN Q6HRS PRN 01/15/19 18:45 Pantoprazole Sodium (PROTONIX VIAL for IV PUSH) 40 mg DAILYAC 01/19/19 07:30 01/22/19 11:39 DC 01/22/19 08:33 40 MG Pantoprazole Sodium (Protonix) 40 mg DAILYAC 01/16/19 07:30 01/18/19 08:02 DC 01/18/19 07:52 40 MG Piperacillin Sod/ Tazobactam Sod (Zosyn Per Pharmacy) 1 each PRN DAILY PRN 01/15/19 17:45 UNV Piperacillin Sod/ Tazobactam Sod 2.25 gm/Sodium Chloride 50 ml @ 100 mls/hr Q6HRS 01/15/19 18:00 01/19/19 11:25 DC 01/19/19 05:59 100 MLS/HR Piperacillin Sod/ Tazobactam Sod 3.375 gm/Sodium Chloride 50 ml @ 100 mls/hr Q6HRS 01/19/19 12:00 01/24/19 08:40 DC 01/24/19 05:57 100 MLS/HR Potassium Chloride/Water 50 ml @ 50 mls/hr 1X ONCE 01/23/19 10:00 01/23/19 10:59 DC 01/23/19 10:11 50 MLS/HR Potassium Chloride (KCl Oral Soln) 20 meq DAILY 01/24/19 12:00 01/26/19 09:08 20 MEQ Propofol 50 ml @ As Directed STK-MED ONCE 01/15/19 15:02 01/15/19 15:03 DC Propofol (Diprivan) 200 mg 1X ONCE 01/15/19 15:00 01/15/19 15:06 DC Quetiapine Fumarate (SEROquel) 25 mg QHS 01/15/19 21:00 01/18/19 14:39 DC 01/17/19 21:08 25 MG Sodium Chloride 500 ml @ 250 mls/hr Q1HR PRN 01/17/19 19:15 Thiamine Mononitrate (Vitamin B-1) 100 mg DAILY 01/16/19 09:00 01/26/19 09:08 100 MG Tramadol HCl (Ultram) 25 mg PRN Q6HRS PRN 01/15/19 17:15 01/25/19 14:40 DC 01/23/19 20:14 25 MG Vancomycin HCl (Vanco Per Pharmacy) 1 each PRN DAILY PRN 01/15/19 17:45 01/16/19 08:06 DC 01/15/19 21:10 1 EACH Vancomycin HCl (Vancomycin Trough Level) 1 each 1X ONCE 01/17/19 20:30 01/17/19 20:31 Cancel Vancomycin HCl 1.25 gm/Sodium Chloride 250 ml @ 167 mls/hr Q24H 01/16/19 21:00 01/16/19 21:00 DC Vancomycin HCl 2 gm/Sodium Chloride 500 ml @ 250 mls/hr 1X ONCE 01/15/19 20:00 01/15/19 21:59 DC 01/15/19 20:56 250 MLS/HR Labs: Lab Laboratory Tests Test 01/25/19 14:59 01/25/19 17:59 01/25/19 18:00 01/26/19 00:06 Glucose (Fingerstick) 107 mg/dL (70-99) 95 mg/dL (70-99) 113 mg/dL (70-99) O2 Saturation 88 % (92-99) Arterial Blood pH 7.43 (7.35-7.45) Arterial Blood pCO2 at Patient Temp 41 mmHg (35-46) Arterial Blood pO2 at Patient Temp 54 mmHg (65-108) Arterial Blood HCO3 26 mmol/L (21-28) Arterial Blood Base Excess 2 mmol/L (-3-3) FiO2 24 Test 01/26/19 05:44 Glucose (Fingerstick) 114 mg/dL (70-99) Micro RUN DATE: 01/22/19 PAGE 1 RUN TIME: 1509 [facility] [address] [place] [address] Zia Keller M.D., Assistant To The Ceo ------ PATIENT: VASILIY ESPINAL ACCT: [id number] LOC: [address] ICU U: [id number] AGE/SX: 73/F ROOM: 108 RE01/15/[address]: CHRISTINA CHAVARRIA MD : 1945 BED: 1 DIS: STATUS: ADM IN TLOC: SPEC #: [id number] LIAN: 01/20/19 STATUS: COMP REQ #: [id number] RECD: 01/20/[address]: MICHELINE RYAN MD SOURCE: SPUTUM ENTR: 01/20/[address] [facility] [address]: CHRISTINA CHAVARRIA MD SPDC: MICHELLE PASTOR MD, VENU S MD PASNOORI, VENKAT R MD SISILLO, SABATO MD ORDERED: SPUTUM CULTURE --------- Procedure Result GRAM STAIN WHITE BLOOD CELLS Final Few GRAM STAIN EPITHELIAL CELLS Final None seen GRAM STAIN RESULT 1 Final Comment Few gram positive cocci GRAM STAIN EVALUATION Final Comment This specimen is of good quality and is acceptable for routine bacterial culture. Performed at: [address] [id number] Press Clipper: OSVALDO Freeman MD, Phone: [phone] SPUTUM CULTURE- Final Final report SPUTUM CULT RES 1 Final Yeast isolated. 3+ Request for further identification must be made within 1 week. Performed at: [address] [id number] Press Clipper: OSVALDO Freeman MD, Phone: [phone] RUN DATE: 01/25/19 PAGE 1 RUN TIME: 9450 [facility] [address] [place] [address] Zia Keller M.D., Assistant To The Ceo PATIENT: VASILIY ESPINAL ACCT: [id number] LOC: [address] [place] [address] U: [id number] AGE/SX: 73/F ROOM: 3 RE01/15/[address]: CHRISTINA CHAVARRIA MD : 1945 BED: 1 DIS: STATUS: ADM IN TLOC: SPEC #: [id number] LIAN: 01/19/19 STATUS: RES REQ #: [id number] RECD: 01/19/[address]: GISELLA MCNEAL MD SOURCE: PLEURAL FL ENTR: 01/18/192225 OT DR: MICHELINE RYAN MD SPDESC: CHRISTINA CHAVARRIA MD, AHMED M MD NAIR, VENU S MD PASNOORI, VENKAT R MD ORDERED: NADIRA/OBEY/ARELI Procedure Result ANAEROBIC-AEROBIC CULTURE PENDING ANAEROBIC RES 1 PENDING AEROBIC CULT Preliminary Preliminary report AEROBIC RES 1 Preliminary Comment No growth in 36 - 48 hours. GRAM STAIN Final Final report GRAM STAIN RES 1 Final Comment No white blood cells seen. GRAM STAIN RES 2 Final No organisms seen Performed at: DA - [facility] [address] [facility] [address], [place], [place] [id number] Press Clipper: OSVALDO Freeman MD, Phone: [phone] Objective: Assessment: Fever, resolved Left loculated effusion, s/p thoracentesis on 01/19. Cultures pending. sputum GPC 01/20 Respiratory failure s/p extubation Circulatory failure CHF/Cardiomyopathy A fib, on amiodarone DM Stage 3 , sacral ulcer Anemia s/p PRBCs Yeast in urine, 01/16 Dysphagia Encephalopathy improving Plan: Plan of Care cont augmentin Monitor closely Off Zyvox and zosyn f/u cultures maintain aspiration precautions local wound care Condition poor d/w RN JEFF RYAN MD January 26, 2019 09:22
--- NOTE | 2019-01-26 10:00 | NUR ---
Haldol given at 0733. pt calmed and fell asleep and bipap put on. pt slept for approximately 2 hours and then was fighting to take bipap off. pt is currently on 2L NC.
[2019-01-26 10:31] LABS: CALCIUM 9.2 mg/dL (8.5-10.1); CREATININE 1.2 mg/dL (0.6-1.0); GFR 44.3; POTASSIUM 4.2 mmol/L (3.5-5.1)
[2019-01-26 10:37] VITALS: BP 116/64
--- NOTE | 2019-01-26 10:46 | NUR ---
NA checking vitals and O2 sats were in the 60's. BiPap put back on.
--- NOTE | 2019-01-26 11:35 | PDOC ---
PROGRESS NOTES Subjective Subjective has hypoxia off of bipap. was non compliant with bipap and agitated .given haldol and now sleeping with bipap. lab reviewed. failed swallow study Objective Objective Vital Signs Date Time Temp Pulse Resp B/P (MAP) Pulse Ox O2 Delivery O2 Flow Rate FiO2 01/26/19 10:39 91 BiPAP/CPAP 01/26/19 10:37 98.7 112 26 116/64 (81) 2.0 98.7 Intake and Output 01/26/19 06:59 Intake Total 675 ml Output Total 800 ml Balance -125 ml Intake Oral 0 ml Tube Feeding 675 ml Output Urine Total 800 ml Physical Exam Abdomen: Soft Heart: Regular rate, Normal S1, Normal S2 Extremities: No edema General: Alert HEENT: Atraumatic Lungs: Other (decreased breath sounds anteriorly) Neuro: Other (sleeping) Psych/Mental Status: Other (sleeping) Skin: No rashes Assessment Assessment Problemsrecent cardiopulmonary arrest. 2. Aspiration pneumonia suspected 3. Fever.resolved 4. Leukocytosis.resolved 5. Acute kidney injury most likely secondary to the cardiopulmonary arrest resolved 6. Hypotension resolved off of dobutamine 7. Elevated liver function tests improved 8. Nonischemic cardiomyopathy with improvement of left ventricular ejection fraction 15-20% improved to 40%. 9. Acute on chronic hypoxic and hypercapnic respiratory failure weaned off the ventilator. now on continuous bipap for hypoxia 10. 11. Acute on chronic systolic congestive heart failure compensated clinically 12. Paroxysmal atrial fibrillation, but not a candidate for Pradaxa due to recent gastrointestinal bleed in 06/2018 from gastric ulcer. 13. Oropharyngeal dysphagia. NG tube feeding 14. Diabetes mellitus type 2. 15. Mild coronary artery disease. suspected sleep apnea. needs out patient sleep study and hs bipap Medical Problems: (1) Cardiac arrest Status: Acute (2) HCAP (healthcare-associated pneumonia) Status: Acute (3) Liver failure Status: Acute Plan Plan of Care on bipap continue NG tube feeding prognosis is poor Comment Review of Relevant I have reviewed the following items kristen (where applicable) has been applied. Labs Laboratory Tests Test 01/24/19 17:50 01/24/19 21:05 01/25/19 00:05 01/25/19 03:40 Glucose (Fingerstick) 89 mg/dL (70-99) 82 mg/dL (70-99) 85 mg/dL (70-99) White Blood Count 7.2 x10^3/uL (4.0-11.0) Red Blood Count 3.32 x10^6/uL (3.50-5.40) Hemoglobin 9.8 g/dL (12.0-15.5) Hematocrit 31.2 % (36.0-47.0) Mean Corpuscular Volume 94 fL (79-100) Mean Corpuscular Hemoglobin 30 pg (25-35) Mean Corpuscular Hemoglobin Concent 31 g/dL (31-37) Red Cell Distribution Width 19.6 % (11.5-14.5) Platelet Count 217 x10^3/uL (140-400) Neutrophils (%) (Auto) 78 % (31-73) Lymphocytes (%) (Auto) 9 % (24-48) Monocytes (%) (Auto) 9 % (0-9) Eosinophils (%) (Auto) 3 % (0-3) Basophils (%) (Auto) 1 % (0-3) Neutrophils # (Auto) 5.6 x10^3uL (1.8-7.7) Lymphocytes # (Auto) 0.7 x10^3/uL (1.0-4.8) Monocytes # (Auto) 0.6 x10^3/uL (0.0-1.1) Eosinophils # (Auto) 0.2 x10^3/uL (0.0-0.7) Basophils # (Auto) 0.1 x10^3/uL (0.0-0.2) Sodium Level 146 mmol/L (136-145) Potassium Level 3.6 mmol/L (3.5-5.1) Chloride Level 109 mmol/L (98-107) Carbon Dioxide Level 30 mmol/L (21-32) Anion Gap 7 (6-14) Blood Urea Nitrogen 44 mg/dL (7-20) Creatinine 1.4 mg/dL (0.6-1.0) Estimated GFR (Cockcroft-Gault) 37.1 Glucose Level 109 mg/dL (70-99) Calcium Level 8.8 mg/dL (8.5-10.1) Test 01/25/19 05:46 01/25/19 14:59 01/25/19 17:59 01/25/19 18:00 Glucose (Fingerstick) 95 mg/dL (70-99) 107 mg/dL (70-99) 95 mg/dL (70-99) O2 Saturation 88 % (92-99) Arterial Blood pH 7.43 (7.35-7.45) Arterial Blood pCO2 at Patient Temp 41 mmHg (35-46) Arterial Blood pO2 at Patient Temp 54 mmHg (65-108) Arterial Blood HCO3 26 mmol/L (21-28) Arterial Blood Base Excess 2 mmol/L (-3-3) FiO2 24 Test 01/26/19 00:06 01/26/19 05:44 01/26/19 09:44 Glucose (Fingerstick) 113 mg/dL (70-99) 114 mg/dL (70-99) Sodium Level 147 mmol/L (136-145) Potassium Level 4.2 mmol/L (3.5-5.1) Chloride Level 112 mmol/L (98-107) Carbon Dioxide Level 27 mmol/L (21-32) Anion Gap 8 (6-14) Blood Urea Nitrogen 47 mg/dL (7-20) Creatinine 1.2 mg/dL (0.6-1.0) Estimated GFR (Cockcroft-Gault) 44.3 Glucose Level 136 mg/dL (70-99) Calcium Level 9.2 mg/dL (8.5-10.1) Laboratory Tests Test 01/25/19 14:59 01/25/19 17:59 01/25/19 18:00 01/26/19 00:06 Glucose (Fingerstick) 107 mg/dL (70-99) 95 mg/dL (70-99) 113 mg/dL (70-99) O2 Saturation 88 % (92-99) Arterial Blood pH 7.43 (7.35-7.45) Arterial Blood pCO2 at Patient Temp 41 mmHg (35-46) Arterial Blood pO2 at Patient Temp 54 mmHg (65-108) Arterial Blood HCO3 26 mmol/L (21-28) Arterial Blood Base Excess 2 mmol/L (-3-3) FiO2 24 Test 01/26/19 05:44 01/26/19 09:44 Glucose (Fingerstick) 114 mg/dL (70-99) Sodium Level 147 mmol/L (136-145) Potassium Level 4.2 mmol/L (3.5-5.1) Chloride Level 112 mmol/L (98-107) Carbon Dioxide Level 27 mmol/L (21-32) Anion Gap 8 (6-14) Blood Urea Nitrogen 47 mg/dL (7-20) Creatinine 1.2 mg/dL (0.6-1.0) Estimated GFR (Cockcroft-Gault) 44.3 Glucose Level 136 mg/dL (70-99) Calcium Level 9.2 mg/dL (8.5-10.1) Microbiology 01/16/19 Blood Culture - Final, Complete NO GROWTH AFTER 5 DAYS 01/19/19 Anaerobic/Aerobic Culture, Resulted Pending 01/19/19 Anaerobic Culture Result 1 ([facility]), Resulted Pending 01/19/19 Aerobic Culture - Preliminary, Resulted 01/19/19 Aerobic Culture Result 1 ([facility]) - Preliminary, Resulted 01/19/19 Gram Stain - Final, Resulted 01/19/19 Gram Stain Result 1 ([facility]IA) - Final, Resulted 01/19/19 Gram Stain Result 2 ([facility]) - Final, Resulted 01/20/19 - Final, Complete 01/20/19 - Final, Complete 01/20/19 - Final, Complete 01/20/19 Gram Stain Evaluation - Final, Complete 01/20/19 Sputum Culture - Final, Complete 01/20/19 Sputum Result 1 - Final, Complete 01/19/19 AFB Specimen Processing Tissue - Final, Resulted 01/19/19 Acid Fast Bacilli Culture, Resulted Pending 01/19/19 Gram Stain - Final, Resulted 01/16/19 Urine Culture - Final, Complete 01/16/19 Urine Culture Result 1 (BASIA) - Final, Complete Medications Current Medications Propofol (Diprivan) 200 mg 1X ONCE IV ; Start 01/15/19 at 15:00; Stop 01/15/19 at 15:06; Status DC Midazolam HCl (Versed) 5 mg 1X ONCE IV Last administered on 01/15/19at 15:59; Start 01/15/19 at 15:00; Stop 01/15/19 at 15:01; Status DC Propofol 50 ml @ As Directed STK-MED ONCE IV ; Start 01/15/19 at 15:02; Stop 01/15/19 at 15:03; Status DC Midazolam HCl 100 ml @ 0 mls/hr 1X ONCE IV Last administered on 01/15/19at 15:19; Start 01/15/19 at 15:15; Stop 01/15/19 at 15:16; Status DC Calcium Gluconate (Calcium Gluconate) 1,000 mg 1X ONCE IVP Last administered on 01/15/19at 15:58; Start 01/15/19 at 15:30; Stop 01/15/19 at 15:31; Status DC Norepinephrine Bitartrate 250 ml @ 1.875 mls/ hr CONT PRN IV SEE I/O RECORD Last administered on 01/20/19at 04:15; Start 01/15/19 at 17:00; Stop 01/22/19 at 10:32; Status DC Piperacillin Sod/ Tazobactam Sod (Zosyn Per Pharmacy) 1 each PRN DAILY PRN MC SEE COMMENTS; Start 01/15/19 at 17:15; Stop 01/24/19 at 10:37; Status DC Albuterol Sulfate (Ventolin Neb Soln) 2.5 mg PRN Q4HRS PRN NEB SHORTNESS OF BREATH; Start 01/15/19 at 17:15 Midazolam HCl 100 ml @ 5 mls/hr CONT PRN IV SEE I/O RECORD Last administered on 01/19/19at 05:03; Start 01/15/19 at 17:15; Stop 01/20/19 at 09:46; Status DC Fentanyl Citrate (Fentanyl 2ml Vial) 50 mcg PRN Q2HR PRN IV PAIN Last administered on 01/25/19at 14:48; Start 01/15/19 at 17:15 Piperacillin Sod/ Tazobactam Sod 2.25 gm/Sodium Chloride 50 ml @ 100 mls/hr Q6HRS IV Last administered on 01/19/19at 05:59; Start 01/15/19 at 18:00; Stop 01/19/19 at 11:25; Status DC Albuterol Sulfate (Ventolin Neb Soln) 2.5 mg RTBID NEB Last administered on 01/26/19at 08:16; Start 01/15/19 at 20:00 Amiodarone HCl (Cordarone) 200 mg DAILY PO Last administered on 01/26/19at 09:09; Start 01/16/19 at 09:00 Aspirin (Dieudonne Aspirin) 325 mg DAILY PO Last administered on 01/26/19at 09:08; Start 01/16/19 at 09:00 Atorvastatin Calcium (Lipitor) 10 mg HS PO Last administered on 5/8/19at 21:07; Start 01/15/19 at 21:00 Carvedilol (Coreg) 3.125 mg BIDWMEALS PO ; Start 01/15/19 at 18:30; Stop 01/18/19 at 14:39; Status DC Docusate Sodium (Colace) 100 mg PRN DAILY PRN PO hard stools; Start 01/15/19 at 17:15 Furosemide (Lasix) 40 mg BID94 PO ; Start 01/16/19 at 09:00; Stop 01/16/19 at 10:50; Status DC Mirtazapine (Remeron) 7.5 mg DAILY PO ; Start 01/16/19 at 09:00; Stop 01/16/19 at 09:00; Status DC Tramadol HCl (Ultram) 25 mg PRN Q6HRS PRN PO MODERATE PAIN Last administered on 01/23/19at 20:14; Start 01/15/19 at 17:15; Stop 01/25/19 at 14:40; Status DC Acetaminophen (Tylenol) 650 mg PRN Q4HRS PRN PO FEVER Last administered on 01/15/19at 20:57; Start 01/15/19 at 17:15; Stop 01/16/19 at 08:07; Status DC Ascorbic Acid (Vitamin C) 500 mg DAILY PO Last administered on 01/26/19at 09:09; Start 01/16/19 at 09:00 Magnesium Hydroxide (Milk Of Magnesia) 2,400 mg PRN DAILY PRN PO CONSTIPATION; Start 01/15/19 at 18:45 Ondansetron HCl (Zofran Odt) 4 mg PRN Q6HRS PRN PO NAUSEA/VOMITING; Start 01/15/19 at 18:45 Pantoprazole Sodium (Protonix) 40 mg DAILYAC PO Last administered on 01/18/19at 07:52; Start 01/16/19 at 07:30; Stop 01/18/19 at 08:02; Status DC Quetiapine Fumarate (SEROquel) 12.5 mg PRN Q6HRS PRN PO AGITATION Last administered on 01/25/19at 08:29; Start 01/15/19 at 17:15; Stop 01/25/19 at 14:40; Status DC Quetiapine Fumarate (SEROquel) 25 mg QHS PO Last administered on 01/17/19at 21:08; Start 01/15/19 at 21:00; Stop 01/18/19 at 14:39; Status DC Thiamine Mononitrate (Vitamin B-1) 100 mg DAILY PO Last administered on 01/26/19at 09:08; Start 01/16/19 at 09:00 Vancomycin HCl (Vanco Per Pharmacy) 1 each PRN DAILY PRN MC SEE COMMENTS Last administered on 01/15/19at 21:10; Start 01/15/19 at 17:45; Stop 01/16/19 at 08:06; Status DC Piperacillin Sod/ Tazobactam Sod (Zosyn Per Pharmacy) 1 each PRN DAILY PRN MC SEE COMMENTS; Start 01/15/19 at 17:45; Status UNV Insulin Human Lispro (HumaLOG) 0-5 UNITS TIDWMEALS SQ ; Start 01/16/19 at 08:00; Stop 01/16/19 at 08:00; Status DC Dextrose (Dextrose 50%-Water Syringe) 12.5 gm PRN Q15MIN PRN IV SEE COMMENTS; Start 01/15/19 at 17:45 Vancomycin HCl 2 gm/Sodium Chloride 500 ml @ 250 mls/hr 1X ONCE IV Last administered on 01/15/19at 20:56; Start 01/15/19 at 20:00; Stop 01/15/19 at 21:59; Status DC Insulin Human Lispro (HumaLOG) 0-5 UNITS Q6HRS SQ Last administered on 01/20/19at 12:47; Start 01/16/19 at 00:00 Vancomycin HCl 1.25 gm/Sodium Chloride 250 ml @ 167 mls/hr Q24H IV ; Start 01/16/19 at 21:00; Stop 01/16/19 at 21:00; Status DC Vancomycin HCl (Vancomycin Trough Level) 1 each 1X ONCE MC ; Start 01/17/19 at 20:30; Stop 01/17/19 at 20:31; Status Cancel Mirtazapine (Remeron) 7.5 mg QHS PO Last administered on 01/25/19at 21:07; Start 01/16/19 at 21:00 Linezolid/Dextrose 300 ml @ 300 mls/hr Q12HR IV Last administered on 01/19/19at 21:52; Start 01/16/19 at 09:00; Stop 01/20/19 at 08:26; Status DC Acetaminophen (Tylenol) 650 mg PRN Q4HRS PRN PEG MILD PAIN / TEMP Last administered on 01/24/19 08:11; Start 01/16/19 at 08:15 Famotidine (Pepcid) 20 mg QHS PO Last administered on 01/17/19 21:08; Start 01/16/19 at 21:00; Stop 01/18/19 at 13:06; Status DC Heparin Sodium (Porcine) (Heparin Sodium) 5,000 unit Q12HR SQ Last administered on 01/18/19 13:18; Start 01/16/19 at 21:00; Stop 01/19/19 at 20:15; Status DC Sodium Chloride 500 ml @ 250 mls/hr Q1HR PRN IV HYPOTENTION; Start 01/17/19 at 19:15 Pantoprazole Sodium (PROTONIX VIAL for IV PUSH) 40 mg DAILYAC IVP Last administered on 01/22/19 08:33; Start 01/19/19 at 07:30; Stop 01/22/19 at 11:39; Status DC Piperacillin Sod/ Tazobactam Sod 3.375 gm/Sodium Chloride 50 ml @ 100 mls/hr Q6HRS IV Last administered on 01/24/19 05:57; Start 01/19/19 at 12:00; Stop 01/24/19 at 08:40; Status DC Magnesium Sulfate 50 ml @ 25 mls/hr 1X ONCE IV Last administered on 01/19/19 15:04; Start 01/19/19 at 12:30; Stop 01/19/19 at 14:29; Status DC Dobutamine HCl/ Dextrose 250 ml @ 6.302 mls/ hr CONT PRN IV SEE I/O RECORD Las t administered on 01/21/19 07:23; Start 01/19/19 at 16:00; Stop 01/24/19 at 19:57; Status DC Heparin Sodium (Porcine) (Heparin Sodium) 5,000 unit Q12HR SQ Last administered on 01/26/19 09:11; Start 01/20/19 at 01:45 Multivitamins (Thera-Plus Oral Liquid) 5 ml DAILY PEG Last administered on 5/9/19at 09:08; Start 01/21/19 at 09:00 Potassium Chloride (KCl Oral Soln) 40 meq 1X ONCE PO Last administered on 01/21/19at 11:56; Start 01/21/19 at 11:00; Stop 01/21/19 at 11:01; Status DC Lansoprazole (Prevacid) 30 mg DAILY NG Last administered on 01/26/19at 09:10; Start 01/23/19 at 09:00 Potassium Chloride/Water 50 ml @ 50 mls/hr 1X ONCE IV Last administered on 01/23/19at 10:11; Start 01/23/19 at 10:00; Stop 01/23/19 at 10:59; Status DC Potassium Chloride (KCl Oral Soln) 20 meq 1X ONCE NG ; Start 01/23/19 at 10:15; Stop 01/23/19 at 10:16; Status DC Amoxicillin/ Clavulanate Potassium (Augmentin 875/ 125mg) 1 tab BID PO Last administered on 01/26/19at 09:08; Start 01/24/19 at 09:00 Furosemide (Lasix) 20 mg DAILY IVP ; Start 01/24/19 at 11:00; Stop 01/24/19 at 11:00; Status DC Furosemide (Lasix) 20 mg DAILY NG Last administered on 01/26/19at 09:09; Start at 11:00 Potassium Chloride (KCl Oral Soln) 20 meq DAILY NG Last administered on 01/26/19at 09:08; Start 01/24/19 at 12:00 Barium Sulfate (Varibar Thin Liquid Apple) 148 gm 1X ONCE PO Last administered on 01/25/19at 13:15; Start 01/25/19 at 13:15; Stop 01/25/19 at 13:16; Status DC Haloperidol Lactate (Haldol Inj) 5 mg 1X ONCE IVP Last administered on 01/26/19at 07:33; Start 01/26/19 at 07:00; Stop 01/26/19 at 07:01; Status DC Haloperidol Lactate (Haldol Inj) 5 mg Q8HRS IVP ; Start 01/26/19 at 14:00 Haloperidol Lactate (Haldol Inj) 5 mg 1X PRN PRN IVP AGITATION; Start 01/26/19 at 07:30; Stop 01/26/19 at 12:00 Active Scripts Active [Multivitamins,Therapeutic Liq] 5 ML Liquid 5 Ml PEG DAILY Heparin Sodium (Heparin Sodium,Porcine) 5,000 Unit/1 Ml Vial 5,000 Unit SQ Q12HR Zosyn 2.25 Gram Vial (Piperacillin Sodium/Tazobactam) 2.25 Gm Vial 1 Each MC PRN DAILY PRN 10 Days ID doctor to decide on duration of iv zosyn Reported Vitamin C (Ascorbate Calcium) 500 Mg Tablet 500 Mg PO DAILY Aspirin 325 Mg Tablet 1 Tab PO DAILY Zofran (Ondansetron Hcl) 4 Mg Tablet 4 Mg PO PRN Q6HRS PRN B-1 (Thiamine HCl) 100 Mg Tablet 100 Mg PO DAILY Acetaminophen 160 Mg/5 Ml Oral.susp 650 Mg PO PRN Q4HRS PRN Mirtazapine 7.5 Mg Tablet 7.5 Mg PO QHS Albuterol Sulfate Neb Soln (Albuterol Sulfate) 2.5 Mg/3 Ml Vial.neb 2.5 Mg NEB BID Atorvastatin Calcium 10 Mg Tablet 10 Mg PO HS Protonix (Pantoprazole Sodium) 20 Mg Tablet.dr 40 Mg PO DAILY Amiodarone Hcl 200 Mg Tablet 1 Tab PO DAILY Seroquel (Quetiapine Fumarate) 25 Mg Tablet 25 Mg PO HS Tramadol Hcl 50 Mg Tablet 25 Mg PO Q6HRS PRN Seroquel (Quetiapine Fumarate) 25 Mg Tablet 12.5 Mg PO PRN Q6HRS PRN Vitals/I & O Vital Sign - Last 24 Hours 01/25/19 01/25/19 01/25/19 01/25/19 12:00 14:48 15:00 16:24 Temp 97.8 97.5 97.8 97.5 Pulse 71 96 Resp 16 16 B/P (MAP) 126/75 (92) 129/66 (87) Pulse Ox 97 94 90 90 O2 Delivery Nasal Cannula Nasal Cannula Nasal Cannula Nasal Cannula O2 Flow Rate 2.0 2.0 2.0 2.0 01/25/19 01/25/19 01/25/19 01/25/19 19:46 20:00 21:30 23:57 Temp 98.1 98.6 98.1 98.6 Pulse 94 94 Resp 16 16 B/P (MAP) 117/65 (82) 138/99 (112) Pulse Ox 92 97 97 O2 Delivery Nasal Cannula Nasal Cannula Nasal Cannula BiPAP/CPAP O2 Flow Rate 2.0 2.0 2.0 01/26/19 01/26/19 01/26/19 01/26/19 03:05 03:22 07:26 07:39 Temp 98.2 98.4 98.2 98.4 Pulse 118 60 Resp 24 24 B/P (MAP) 95/60 (72) 130/77 (94) Pulse Ox 91 88 O2 Delivery BiPAP/CPAP BiPAP/CPAP Nasal Cannula O2 Flow Rate 2.0 2.0 01/26/19 01/26/19 01/26/19 01/26/19 07:41 08:20 09:09 10:37 Temp 98.7 98.7 Pulse 60 112 Resp 26 B/P (MAP) 130/77 116/64 (81) Pulse Ox 97 68 O2 Delivery Nasal Cannula BiPAP/CPAP Nasal Cannula O2 Flow Rate 2.0 2.0 01/26/19 10:39 Pulse Ox 91 O2 Delivery BiPAP/CPAP Intake and Output 01/25/19 01/25/19 01/26/19 14:59 22:59 06:59 Intake Total 175 ml 500 ml 0 ml Output Total 100 ml 400 ml 300 ml Balance 75 ml 100 ml -300 ml CHRISTINA CHAVARRIA MD January 26, 2019 11:35
--- NOTE | 2019-01-26 12:33 | PDOC2 ---
PALLIATIVE CARE Palliative Care Note Palliative Care Consult requested by Dr. Garza to address goals of care. Patient restless. BiPap on. Haldol available to restlessness Spoke to Kenyetta Daughter. She can not come to a meeting to discuss her mother's care---"don't want to think about it" Called Jennifer--daughter. Plan family meeting Wednesday (unable to come tomorrow) at 10am. Confirmed Code Status; Full Code. JOSSE PAGE January 26, 2019 12:32
--- NOTE | 2019-01-26 12:59 | NUR ---
SW faxed updates to [employer]. Will continue to follow.
--- NOTE | 2019-01-26 13:24 | RAD ---
Portable chest, 01/26/2019: HISTORY: Hypoxia Comparison is made to yesterday's study. The left PICC extends to the level the atrial caval junction. The Dobbhoff tube remains in place although its tip is not visible. The patient is rotated to the right. The heart is enlarged. There are unchanged pleural-parenchymal opacities in the mid and lower chest compatible with pleural fluid and underlying atelectasis/infiltrate. There is no evidence of pneumothorax. No new abnormality is seen. IMPRESSION: No significant change since yesterday's exam. Electronically signed by: Robin Howard MD (01/26/2019 1:22 PM) [facility]
[2019-01-26] MEDS: HALOPERIDOL LACTATE 5 MG/ML VIAL. IVP SCH ×2 (14:00→22:51)
[2019-01-26 14:56] VITALS: BP 95/46
[2019-01-26] MEDS ORDERED: diphenhydrAMINE 50 MG/ML VIAL IVP PRN (16:45)
[2019-01-26 19:30] VITALS: BP 104/70
[2019-01-26] MEDS: ATORVASTATIN CALCIUM 10 MG TABLET. PO SCH (22:51)
[2019-01-26 23:30] VITALS: BP 89/41
[2019-01-27] VITALS (21 sets, daily range): BP systolic 68–115; BP diastolic 39–72
[2019-01-27 05:34] LABS: BASO # 0.1 x10^3/uL (0.0-0.2); BASO % 1 % (0-3); EOS % 0 % (0-3); HEMATOCRIT 31.6 % (36.0-47.0); LYMPH # 0.9 x10^3/uL (1.0-4.8); LYMPH % 7 % (24-48); MEAN CORPUSCULAR HEMOGLOBIN 30 pg (25-35); MEAN CORPUSCULAR HGB CONC 32 g/dL (31-37); MEAN CORPUSCULAR VOLUME 94 fL (79-100); MONO # 0.8 x10^3/uL (0.0-1.1); MONO % 6 % (0-9); NEUT # 10.8 x10^3uL (1.8-7.7); NEUT % 86 % (31-73); PLATELET COUNT 265 x10^3/uL (140-400); RED BLOOD COUNT 3.35 x10^6/uL (3.50-5.40); RED CELL DISTRIBUTION WIDTH 19.4 % (11.5-14.5); WHITE BLOOD COUNT 12.6 x10^3/uL (4.0-11.0)
[2019-01-27] MEDS: INSULIN LISPRO 300 UNITS/3 ML INSULN.PEN. SQ SCH ×4 (06:00→17:53)
[2019-01-27] MEDS: HALOPERIDOL LACTATE 5 MG/ML VIAL. IVP SCH (06:00)
[2019-01-27 06:04] LABS: CREATININE 1.2 mg/dL (0.6-1.0); GFR 44.3
[2019-01-27 08:07] LABS: ANISOCYTOSIS SLIGHT; PLT ESTIMATE ADEQUATE (ADEQUATE); POLYCHROMASIA SLIGHT
[2019-01-27 08:08] LABS: % BANDS 11 % (0-9); % LYMPHS 6 % (24-48); % MONOS 5 % (0-10); % SEGS 78 % (35-66)
[2019-01-27] MEDS: ALBUTEROL SULFATE 2.5 MG/3 ML NEBU. NEB SCH ×2 (08:16→20:20)
--- NOTE | 2019-01-27 09:15 | NUR ---
SW following pt. Peer to Peer was denied. [employer] has submitted a written appeal to [employer]. Will continue to follow.
--- NOTE | 2019-01-27 09:44 | PDOC ---
PULMONARY PROGRESS NOTES Subjective EXTUBATED 01/20 PT TRANSFER BACK TO ICU FOR HYPOXEMIA AND DELIRIUM Vitals Vital Signs Date Time Temp Pulse Resp B/P (MAP) Pulse Ox O2 Delivery O2 Flow Rate FiO2 01/27/19 08:18 91 Nasal Cannula 3.0 01/27/19 07:20 98.8 106 20 109/53 (71) 98.8 General: Confused Lungs: Clear Cardiovascular: S1, S2 Abdomen: Soft, Non-tender Extremities: Other (EDEMA) Skin: Warm Labs Laboratory Tests Test 01/25/19 14:59 01/25/19 17:59 01/25/19 18:00 01/26/19 00:06 Glucose (Fingerstick) 107 mg/dL (70-99) 95 mg/dL (70-99) 113 mg/dL (70-99) O2 Saturation 88 % (92-99) Arterial Blood pH 7.43 (7.35-7.45) Arterial Blood pCO2 at Patient Temp 41 mmHg (35-46) Arterial Blood pO2 at Patient Temp 54 mmHg (65-108) Arterial Blood HCO3 26 mmol/L (21-28) Arterial Blood Base Excess 2 mmol/L (-3-3) FiO2 24 Test 01/26/19 05:44 01/26/19 09:44 01/26/19 12:10 01/26/19 18:24 Glucose (Fingerstick) 114 mg/dL (70-99) 114 mg/dL (70-99) 161 mg/dL (70-99) Sodium Level 147 mmol/L (136-145) Potassium Level 4.2 mmol/L (3.5-5.1) Chloride Level 112 mmol/L (98-107) Carbon Dioxide Level 27 mmol/L (21-32) Anion Gap 8 (6-14) Blood Urea Nitrogen 47 mg/dL (7-20) Creatinine 1.2 mg/dL (0.6-1.0) Estimated GFR (Cockcroft-Gault) 44.3 Glucose Level 136 mg/dL (70-99) Calcium Level 9.2 mg/dL (8.5-10.1) Test 01/27/19 05:00 White Blood Count 12.6 x10^3/uL (4.0-11.0) Red Blood Count 3.35 x10^6/uL (3.50-5.40) Hemoglobin 10.0 g/dL (12.0-15.5) Hematocrit 31.6 % (36.0-47.0) Mean Corpuscular Volume 94 fL (79-100) Mean Corpuscular Hemoglobin 30 pg (25-35) Mean Corpuscular Hemoglobin Concent 32 g/dL (31-37) Red Cell Distribution Width 19.4 % (11.5-14.5) Platelet Count 265 x10^3/uL (140-400) Neutrophils (%) (Auto) 86 % (31-73) Lymphocytes (%) (Auto) 7 % (24-48) Monocytes (%) (Auto) 6 % (0-9) Eosinophils (%) (Auto) 0 % (0-3) Basophils (%) (Auto) 1 % (0-3) Neutrophils # (Auto) 10.8 x10^3uL (1.8-7.7) Lymphocytes # (Auto) 0.9 x10^3/uL (1.0-4.8) Monocytes # (Auto) 0.8 x10^3/uL (0.0-1.1) Eosinophils # (Auto) 0.0 x10^3/uL (0.0-0.7) Basophils # (Auto) 0.1 x10^3/uL (0.0-0.2) Segmented Neutrophils % 78 % (35-66) Band Neutrophils % 11 % (0-9) Lymphocytes % 6 % (24-48) Monocytes % 5 % (0-10) Platelet Estimate Adequate (ADEQUATE) Polychromasia Slight Anisocytosis Slight Sodium Level 146 mmol/L (136-145) Potassium Level 4.0 mmol/L (3.5-5.1) Chloride Level 110 mmol/L (98-107) Carbon Dioxide Level 29 mmol/L (21-32) Anion Gap 7 (6-14) Blood Urea Nitrogen 55 mg/dL (7-20) Creatinine 1.2 mg/dL (0.6-1.0) Estimated GFR (Cockcroft-Gault) 44.3 Glucose Level 134 mg/dL (70-99) Calcium Level 9.0 mg/dL (8.5-10.1) Laboratory Tests Test 01/26/19 12:10 01/26/19 18:24 01/27/19 05:00 Glucose (Fingerstick) 114 mg/dL (70-99) 161 mg/dL (70-99) White Blood Count 12.6 x10^3/uL (4.0-11.0) Red Blood Count 3.35 x10^6/uL (3.50-5.40) Hemoglobin 10.0 g/dL (12.0-15.5) Hematocrit 31.6 % (36.0-47.0) Mean Corpuscular Volume 94 fL (79-100) Mean Corpuscular Hemoglobin 30 pg (25-35) Mean Corpuscular Hemoglobin Concent 32 g/dL (31-37) Red Cell Distribution Width 19.4 % (11.5-14.5) Platelet Count 265 x10^3/uL (140-400) Neutrophils (%) (Auto) 86 % (31-73) Lymphocytes (%) (Auto) 7 % (24-48) Monocytes (%) (Auto) 6 % (0-9) Eosinophils (%) (Auto) 0 % (0-3) Basophils (%) (Auto) 1 % (0-3) Neutrophils # (Auto) 10.8 x10^3uL (1.8-7.7) Lymphocytes # (Auto) 0.9 x10^3/uL (1.0-4.8) Monocytes # (Auto) 0.8 x10^3/uL (0.0-1.1) Eosinophils # (Auto) 0.0 x10^3/uL (0.0-0.7) Basophils # (Auto) 0.1 x10^3/uL (0.0-0.2) Segmented Neutrophils % 78 % (35-66) Band Neutrophils % 11 % (0-9) Lymphocytes % 6 % (24-48) Monocytes % 5 % (0-10) Platelet Estimate Adequate (ADEQUATE) Polychromasia Slight Anisocytosis Slight Sodium Level 146 mmol/L (136-145) Potassium Level 4.0 mmol/L (3.5-5.1) Chloride Level 110 mmol/L (98-107) Carbon Dioxide Level 29 mmol/L (21-32) Anion Gap 7 (6-14) Blood Urea Nitrogen 55 mg/dL (7-20) Creatinine 1.2 mg/dL (0.6-1.0) Estimated GFR (Cockcroft-Gault) 44.3 Glucose Level 134 mg/dL (70-99) Calcium Level 9.0 mg/dL (8.5-10.1) Medications Active Scripts Medications Dose Route/Sig Max Daily Dose Days Date Category Vitamin C (Ascorbate Calcium) 500 Mg Tablet 500 Mg PO DAILY 01/15/19 Reported Aspirin 325 Mg Tablet 1 Tab PO DAILY 01/15/19 Reported Coreg (Carvedilol) 3.125 Mg Tablet 3.125 Mg PO BIDWMEALS 01/15/19 Reported Zofran (Ondansetron Hcl) 4 Mg Tablet 4 Mg PO PRN Q6HRS PRN 01/15/19 Reported B-1 (Thiamine HCl) 100 Mg Tablet 100 Mg PO DAILY 01/15/19 Reported Docusate Sodium 100 Mg Capsule 100 Mg PO PRN PRN 01/15/19 Reported Acetaminophen 160 Mg/5 Ml Oral.susp 650 Mg PO PRN Q4HRS PRN 01/15/19 Reported Milk Of Magnesia (Magnesium Hydroxide) 2,400 Mg/10 Ml Oral.susp 2,400 Mg PO PRN PRN 01/15/19 Reported Mirtazapine 7.5 Mg Tablet 7.5 Mg PO QHS 01/15/19 Reported Albuterol Sulfate Neb Soln (Albuterol Sulfate) 2.5 Mg/3 Ml Vial.neb 2.5 Mg NEB BID 01/15/19 Reported Atorvastatin Calcium 10 Mg Tablet 10 Mg PO HS 01/15/19 Reported Lasix (Furosemide) 40 Mg Tablet 40 Mg PO BID 01/15/19 Reported Protonix (Pantoprazole Sodium) 20 Mg Tablet.dr 40 Mg PO DAILY 01/15/19 Reported Amiodarone Hcl 200 Mg Tablet 1 Tab PO DAILY 01/15/19 Reported Seroquel (Quetiapine Fumarate) 25 Mg Tablet 25 Mg PO HS 01/15/19 Reported Tramadol Hcl 50 Mg Tablet 25 Mg PO Q6HRS PRN 01/15/19 Reported Seroquel (Quetiapine Fumarate) 25 Mg Tablet 12.5 Mg PO PRN Q6HRS PRN 01/15/19 Reported Comments CXR 01/22 IMPROVED LEFT EFFUSION/ MILD CHF, NO CHANGE Impression . IMPRESSION: 1. Acute respiratory failure, status post cardiopulmonary arrest, the patient transferred from [facility]. extubated, on [place] 2. Acute on chronic systolic heart failure. EF 40% 3. Abnormal x-ray compatible with bilateral airspace disease in the lower lobes, pneumonia./ CHF, left effusion, s/p left tap 5/2 4. Type 2 diabetes. 5. Severe protein malnutrition. 6. Thrombocytopenia. 7. History of pacemaker implantation. 8. Prior history of gastric ulcers. 9. ABNORMAL CXR 10 METABOLIC ENCE POA 11 DYSPHAGIA 12 DIARRHEA 13 HYPERCAPNIA 14.DELIRIUM Plan . BIAPAP TRY HALDOL IF NOT WILL START PRECEDEX 02 NC DIFFICULT CASE IF FAMILY WISHES TO BE AGGRESSIVE SHE MAY NEED A TRACH PALLIATIVE CARE ON CASE PT NOT WELL ENOUGH TO GO TO SNU NEEDS HIGHER LEVEL OF CARE, INSURANCE HAS DENIED TRANSFER TO LTAC OFF DOBUATMMINE ON AMIODARONE WILL MONITOR FOR NOW FAILED VIDEO NEEDS NPO FOR NOW CARDIOLOGY REC DAUGHTER REPORTS MULTIPLE EPISODES OF APNEAS/ NO SLEEP STUDY IN PAST WILL NEED SS OP IF SHE CAN TOLERATE BIPAP GISELLA MCNEAL MD January 27, 2019 09:44
[2019-01-27] MEDS: THIAMINE 100 MG TABLET. PO SCH (09:48)
[2019-01-27] MEDS: ASPIRIN 325 MG TABLET PO SCH (09:49)
[2019-01-27] MEDS: AMOXICILLIN/K CLAV 875/125MG TABLET. PO SCH (09:49)
[2019-01-27] MEDS: AMIODARONE HCL 200 MG TABLET. PO SCH (09:49)
[2019-01-27] MEDS: MULTIVITAMINS,THERAPEUTIC 5 ML ORAL LIQUID. PEG SCH (09:49)
[2019-01-27] MEDS: ASCORBIC ACID 500 MG TABLET PO SCH (09:50)
[2019-01-27] MEDS: FUROSEMIDE 40 MG/4 ML ORAL SOLUTION. NG SCH (09:50)
[2019-01-27] MEDS: LANSOPRAZOLE 30 MG TAB.RAP.DR NG SCH (09:50)
[2019-01-27] MEDS: POTASSIUM CHLORIDE 20 MEQ/15 ML ORAL LIQUID. NG SCH (09:50)
[2019-01-27] MEDS ORDERED: HALOPERIDOL LACTATE 5 MG/ML VIAL. IVP PRN (10:15)
--- NOTE | 2019-01-27 10:21 | PDOC ---
PROGRESS NOTES Subjective Subjective she is awake and talks a little but sedated and will change iv haldol to prn. lab reviewed. wbc and bun are higher. temp 100.3 last noc but afebrile now. discussed with her nurse. I spoke with [facility] medical research assistant yesterday who declined transfer to LTAC,. Objective Objective Vital Signs Date Time Temp Pulse Resp B/P (MAP) Pulse Ox O2 Delivery O2 Flow Rate FiO2 01/27/19 09:49 106 109/53 01/27/19 08:18 91 Nasal Cannula 3.0 01/27/19 07:20 98.8 20 98.8 Intake and Output 01/27/19 07:00 Intake Total 655 ml Output Total 1050 ml Balance -395 ml Intake Oral 0 ml Tube Feeding 655 ml Output Urine Total 750 ml Stool Total 300 ml # Bowel Movements 2 Physical Exam Abdomen: Soft Heart: Regular rate, Normal S1, Normal S2 Extremities: No edema General: Alert, Other (but sedated) HEENT: Atraumatic Lungs: Other (decreased breath sounds anteriorly) Neuro: Other (alert but sedated. ) Psych/Mental Status: Other (alert but sedated) Skin: No rashes Assessment Assessment Problemsrecent cardiopulmonary arrest. 2. Aspiration pneumonia suspected 3. Fever.resolved 4. Leukocytosis.resolved 5. Acute kidney injury most likely secondary to the cardiopulmonary arrest resolved 6. Hypotension resolved off of dobutamine 7. Elevated liver function tests improved 8. Nonischemic cardiomyopathy with improvement of left ventricular ejection fraction 15-20% improved to 40%. 9. Acute on chronic hypoxic and hypercapnic respiratory failure weaned off the ventilator. now on bipap at night and oxygen per NC now 10. 11. Acute on chronic systolic congestive heart failure compensated clinically 12. Paroxysmal atrial fibrillation, but not a candidate for Pradaxa due to recent gastrointestinal bleed in 06/2018 from gastric ulcer. 13. Oropharyngeal dysphagia. NG tube feeding 14. Diabetes mellitus type 2. 15. Mild coronary artery disease. suspected sleep apnea. needs out patient sleep study and hs bipap metabolic and toxic encephalopathy fever leukocytosis Medical Problems: (1) Cardiac arrest Status: Acute (2) HCAP (healthcare-associated pneumonia) Status: Acute (3) Liver failure Status: Acute Plan Plan of Care change haldol to prn antibiotics per ID lab tomorrow d/c furosemide and kcl bipap at hs NG tube feeding continue heparin for dvt prophylaxis continue prevacid PT and OT Comment Review of Relevant I have reviewed the following items kristen (where applicable) has been applied. Labs Laboratory Tests Test 01/25/19 14:59 01/25/19 17:59 01/25/19 18:00 01/26/19 00:06 Glucose (Fingerstick) 107 mg/dL (70-99) 95 mg/dL (70-99) 113 mg/dL (70-99) O2 Saturation 88 % (92-99) Arterial Blood pH 7.43 (7.35-7.45) Arterial Blood pCO2 at Patient Temp 41 mmHg (35-46) Arterial Blood pO2 at Patient Temp 54 mmHg (65-108) Arterial Blood HCO3 26 mmol/L (21-28) Arterial Blood Base Excess 2 mmol/L (-3-3) FiO2 24 Test 01/26/19 05:44 01/26/19 09:44 01/26/19 12:10 01/26/19 18:24 Glucose (Fingerstick) 114 mg/dL (70-99) 114 mg/dL (70-99) 161 mg/dL (70-99) Sodium Level 147 mmol/L (136-145) Potassium Level 4.2 mmol/L (3.5-5.1) Chloride Level 112 mmol/L (98-107) Carbon Dioxide Level 27 mmol/L (21-32) Anion Gap 8 (6-14) Blood Urea Nitrogen 47 mg/dL (7-20) Creatinine 1.2 mg/dL (0.6-1.0) Estimated GFR (Cockcroft-Gault) 44.3 Glucose Level 136 mg/dL (70-99) Calcium Level 9.2 mg/dL (8.5-10.1) Test 01/27/19 05:00 White Blood Count 12.6 x10^3/uL (4.0-11.0) Red Blood Count 3.35 x10^6/uL (3.50-5.40) Hemoglobin 10.0 g/dL (12.0-15.5) Hematocrit 31.6 % (36.0-47.0) Mean Corpuscular Volume 94 fL (79-100) Mean Corpuscular Hemoglobin 30 pg (25-35) Mean Corpuscular Hemoglobin Concent 32 g/dL (31-37) Red Cell Distribution Width 19.4 % (11.5-14.5) Platelet Count 265 x10^3/uL (140-400) Neutrophils (%) (Auto) 86 % (31-73) Lymphocytes (%) (Auto) 7 % (24-48) Monocytes (%) (Auto) 6 % (0-9) Eosinophils (%) (Auto) 0 % (0-3) Basophils (%) (Auto) 1 % (0-3) Neutrophils # (Auto) 10.8 x10^3uL (1.8-7.7) Lymphocytes # (Auto) 0.9 x10^3/uL (1.0-4.8) Monocytes # (Auto) 0.8 x10^3/uL (0.0-1.1) Eosinophils # (Auto) 0.0 x10^3/uL (0.0-0.7) Basophils # (Auto) 0.1 x10^3/uL (0.0-0.2) Segmented Neutrophils % 78 % (35-66) Band Neutrophils % 11 % (0-9) Lymphocytes % 6 % (24-48) Monocytes % 5 % (0-10) Platelet Estimate Adequate (ADEQUATE) Polychromasia Slight Anisocytosis Slight Sodium Level 146 mmol/L (136-145) Potassium Level 4.0 mmol/L (3.5-5.1) Chloride Level 110 mmol/L (98-107) Carbon Dioxide Level 29 mmol/L (21-32) Anion Gap 7 (6-14) Blood Urea Nitrogen 55 mg/dL (7-20) Creatinine 1.2 mg/dL (0.6-1.0) Estimated GFR (Cockcroft-Gault) 44.3 Glucose Level 134 mg/dL (70-99) Calcium Level 9.0 mg/dL (8.5-10.1) Laboratory Tests Test 01/26/19 12:10 01/26/19 18:24 01/27/19 05:00 Glucose (Fingerstick) 114 mg/dL (70-99) 161 mg/dL (70-99) White Blood Count 12.6 x10^3/uL (4.0-11.0) Red Blood Count 3.35 x10^6/uL (3.50-5.40) Hemoglobin 10.0 g/dL (12.0-15.5) Hematocrit 31.6 % (36.0-47.0) Mean Corpuscular Volume 94 fL (79-100) Mean Corpuscular Hemoglobin 30 pg (25-35) Mean Corpuscular Hemoglobin Concent 32 g/dL (31-37) Red Cell Distribution Width 19.4 % (11.5-14.5) Platelet Count 265 x10^3/uL (140-400) Neutrophils (%) (Auto) 86 % (31-73) Lymphocytes (%) (Auto) 7 % (24-48) Monocytes (%) (Auto) 6 % (0-9) Eosinophils (%) (Auto) 0 % (0-3) Basophils (%) (Auto) 1 % (0-3) Neutrophils # (Auto) 10.8 x10^3uL (1.8-7.7) Lymphocytes # (Auto) 0.9 x10^3/uL (1.0-4.8) Monocytes # (Auto) 0.8 x10^3/uL (0.0-1.1) Eosinophils # (Auto) 0.0 x10^3/uL (0.0-0.7) Basophils # (Auto) 0.1 x10^3/uL (0.0-0.2) Segmented Neutrophils % 78 % (35-66) Band Neutrophils % 11 % (0-9) Lymphocytes % 6 % (24-48) Monocytes % 5 % (0-10) Platelet Estimate Adequate (ADEQUATE) Polychromasia Slight Anisocytosis Slight Sodium Level 146 mmol/L (136-145) Potassium Level 4.0 mmol/L (3.5-5.1) Chloride Level 110 mmol/L (98-107) Carbon Dioxide Level 29 mmol/L (21-32) Anion Gap 7 (6-14) Blood Urea Nitrogen 55 mg/dL (7-20) Creatinine 1.2 mg/dL (0.6-1.0) Estimated GFR (Cockcroft-Gault) 44.3 Glucose Level 134 mg/dL (70-99) Calcium Level 9.0 mg/dL (8.5-10.1) Microbiology 01/16/19 Blood Culture - Final, Complete NO GROWTH AFTER 5 DAYS 01/19/19 Anaerobic/Aerobic Culture - Preliminary, Resulted 01/19/19 Anaerobic Culture Result 1 (BASIA) - Preliminary, Resulted 01/19/19 Aerobic Culture - Final, Resulted 01/19/19 Aerobic Culture Result 1 (BASIA) - Final, Resulted 01/19/19 Gram Stain - Final, Resulted 01/19/19 Gram Stain Result 1 (BASIA) - Final, Resulted 01/19/19 Gram Stain Result 2 (BASIA) - Final, Resulted 01/20/19 - Final, Complete 01/20/19 - Final, Complete 01/20/19 - Final, Complete 01/20/19 Gram Stain Evaluation - Final, Complete 01/20/19 Sputum Culture - Final, Complete 01/20/19 Sputum Result 1 - Final, Complete 01/19/19 AFB Specimen Processing Tissue - Final, Resulted 01/19/19 Acid Fast Bacilli Culture, Resulted Pending 01/19/19 Gram Stain - Final, Resulted 01/16/19 Urine Culture - Final, Complete 01/16/19 Urine Culture Result 1 (BASIA) - Final, Complete Medications Current Medications Propofol (Diprivan) 200 mg 1X ONCE IV ; Start 01/15/19 at 15:00; Stop 01/15/19 at 15:06; Status DC Midazolam HCl (Versed) 5 mg 1X ONCE IV Last administered on 01/15/19at 15:59; Start 01/15/19 at 15:00; Stop 01/15/19 at 15:01; Status DC Propofol 50 ml @ As Directed STK-MED ONCE IV ; Start 01/15/19 at 15:02; Stop 01/15/19 at 15:03; Status DC Midazolam HCl 100 ml @ 0 mls/hr 1X ONCE IV Last administered on 01/15/19at 15:19; Start 01/15/19 at 15:15; Stop 01/15/19 at 15:16; Status DC Calcium Gluconate (Calcium Gluconate) 1,000 mg 1X ONCE IVP Last administered on 01/15/19at 15:58; Start 01/15/19 at 15:30; Stop 01/15/19 at 15:31; Status DC Norepinephrine Bitartrate 250 ml @ 1.875 mls/ hr CONT PRN IV SEE I/O RECORD Last administered on 01/20/19at 04:15; Start 01/15/19 at 17:00; Stop 01/22/19 at 10:32; Status DC Piperacillin Sod/ Tazobactam Sod (Zosyn Per Pharmacy) 1 each PRN DAILY PRN MC SEE COMMENTS; Start 01/15/19 at 17:15; Stop 01/24/19 at 10:37; Status DC Albuterol Sulfate (Ventolin Neb Soln) 2.5 mg PRN Q4HRS PRN NEB SHORTNESS OF BREATH; Start 01/15/19 at 17:15 Midazolam HCl 100 ml @ 5 mls/hr CONT PRN IV SEE I/O RECORD Last administered on 01/19/19at 05:03; Start 01/15/19 at 17:15; Stop 01/20/19 at 09:46; Status DC Fentanyl Citrate (Fentanyl 2ml Vial) 50 mcg PRN Q2HR PRN IV PAIN Last administered on 01/25/19at 14:48; Start 01/15/19 at 17:15 Piperacillin Sod/ Tazobactam Sod 2.25 gm/Sodium Chloride 50 ml @ 100 mls/hr Q6HRS IV Last administered on 01/19/19at 05:59; Start 01/15/19 at 18:00; Stop 01/19/19 at 11:25; Status DC Albuterol Sulfate (Ventolin Neb Soln) 2.5 mg RTBID NEB Last administered on 01/27/19at 08:16; Start 01/15/19 at 20:00 Amiodarone HCl (Cordarone) 200 mg DAILY PO Last administered on 01/27/19at 09:49; Start 01/16/19 at 09:00 Aspirin (Dieudonne Aspirin) 325 mg DAILY PO Last administered on 01/27/19at 09:49; Start 01/16/19 at 09:00 Atorvastatin Calcium (Lipitor) 10 mg HS PO Last administered on 01/26/19at 22:51; Start 01/15/19 at 21:00 Carvedilol (Coreg) 3.125 mg BIDWMEALS PO ; Start 01/15/19 at 18:30; Stop 01/18/19 at 14:39; Status DC Docusate Sodium (Colace) 100 mg PRN DAILY PRN PO hard stools; Start 01/15/19 at 17:15 Furosemide (Lasix) 40 mg BID94 PO ; Start 01/16/19 at 09:00; Stop 01/16/19 at 10:50; Status DC Mirtazapine (Remeron) 7.5 mg DAILY PO ; Start 01/16/19 at 09:00; Stop 01/16/19 at 09:00; Status DC Tramadol HCl (Ultram) 25 mg PRN Q6HRS PRN PO MODERATE PAIN Last administered on 01/23/19 20:14; Start 01/15/19 at 17:15; Stop 01/25/19 at 14:40; Status DC Acetaminophen (Tylenol) 650 mg PRN Q4HRS PRN PO FEVER Last administered on 01/15/19at 20:57; Start 01/15/19 at 17:15; Stop 01/16/19 at 08:07; Status DC Ascorbic Acid (Vitamin C) 500 mg DAILY PO Last administered on 01/27/19at 09:50; Start 01/16/19 at 09:00 Magnesium Hydroxide (Milk Of Magnesia) 2,400 mg PRN DAILY PRN PO CONSTIPATION; Start 01/15/19 at 18:45 Ondansetron HCl (Zofran Odt) 4 mg PRN Q6HRS PRN PO NAUSEA/VOMITING; Start 01/15/19 at 18:45 Pantoprazole Sodium (Protonix) 40 mg DAILYAC PO Last administered on 01/18/19at 07:52; Start 01/16/19 at 07:30; Stop 01/18/19 at 08:02; Status DC Quetiapine Fumarate (SEROquel) 12.5 mg PRN Q6HRS PRN PO AGITATION Last administered on 01/25/19 08:29; Start 01/15/19 at 17:15; Stop 01/25/19 at 14:40; Status DC Quetiapine Fumarate (SEROquel) 25 mg QHS PO Last administered on 01/17/19at 21:08; Start 01/15/19 at 21:00; Stop 01/18/19 at 14:39; Status DC Thiamine Mononitrate (Vitamin B-1) 100 mg DAILY PO Last administered on 01/27/19at 09:48; Start 01/16/19 at 09:00 Vancomycin HCl (Vanco Per Pharmacy) 1 each PRN DAILY PRN MC SEE COMMENTS Last administered on 01/15/19at 21:10; Start 01/15/19 at 17:45; Stop 01/16/19 at 08:06; Status DC Piperacillin Sod/ Tazobactam Sod (Zosyn Per Pharmacy) 1 each PRN DAILY PRN MC SEE COMMENTS; Start 01/15/19 at 17:45; Status UNV Insulin Human Lispro (HumaLOG) 0-5 UNITS TIDWMEALS SQ ; Start 01/16/19 at 08:00; Stop 01/16/19 at 08:00; Status DC Dextrose (Dextrose 50%-Water Syringe) 12.5 gm PRN Q15MIN PRN IV SEE COMMENTS; Start 01/15/19 at 17:45 Vancomycin HCl 2 gm/Sodium Chloride 500 ml @ 250 mls/hr 1X ONCE IV Last administered on 01/15/19at 20:56; Start 01/15/19 at 20:00; Stop 01/15/19 at 21:59; Status DC Insulin Human Lispro (HumaLOG) 0-5 UNITS Q6HRS SQ Last administered on 01/20/19at 12:47; Start 01/16/19 at 00:00 Vancomycin HCl 1.25 gm/Sodium Chloride 250 ml @ 167 mls/hr Q24H IV ; Start 01/16/19 at 21:00; Stop 01/16/19 at 21:00; Status DC Vancomycin HCl (Vancomycin Trough Level) 1 each 1X ONCE MC ; Start 01/17/19 at 20:30; Stop 01/17/19 at 20:31; Status Cancel Mirtazapine (Remeron) 7.5 mg QHS PO Last administered on 01/25/19at 21:07; Start 01/16/19 at 21:00; Stop 01/26/19 at 16:44; Status DC Linezolid/Dextrose 300 ml @ 300 mls/hr Q12HR IV Last administered on 01/19/19at 21:52; Start 01/16/19 at 09:00; Stop 01/20/19 at 08:26; Status DC Acetaminophen (Tylenol) 650 mg PRN Q4HRS PRN PEG MILD PAIN / TEMP Last administered on 01/24/19at 08:11; Start 01/16/19 at 08:15 Famotidine (Pepcid) 20 mg QHS PO Last administered on 01/17/19at 21:08; Start 01/16/19 at 21:00; Stop 01/18/19 at 13:06; Status DC Heparin Sodium (Porcine) (Heparin Sodium) 5,000 unit Q12HR SQ Last administered on 01/18/19 13:18; Start 01/16/19 at 21:00; Stop 01/19/19 at 20:15; Status DC Sodium Chloride 500 ml @ 250 mls/hr Q1HR PRN IV HYPOTENTION; Start 01/17/19 at 19:15 Pantoprazole Sodium (PROTONIX VIAL for IV PUSH) 40 mg DAILYAC IVP Last administered on 01/22/19at 08:33; Start 01/19/19 at 07:30; Stop 01/22/19 at 11:39; Status DC Piperacillin Sod/ Tazobactam Sod 3.375 gm/Sodium Chloride 50 ml @ 100 mls/hr Q6HRS IV Last administered on 01/24/19 05:57; Start 01/19/19 at 12:00; Stop 01/24/19 at 08:40; Status DC Magnesium Sulfate 50 ml @ 25 mls/hr 1X ONCE IV Last administered on 01/19/19at 15:04; Start 01/19/19 at 12:30; Stop 01/19/19 at 14:29; Status DC Dobutamine HCl/ Dextrose 250 ml @ 6.302 mls/ hr CONT PRN IV SEE I/O RECORD Last administered on 01/21/19 07:23; Start 01/19/19 at 16:00; Stop 01/24/19 at 19:57; Status DC Heparin Sodium (Porcine) (Heparin Sodium) 5,000 unit Q12HR SQ Last administered on 01/26/19at 23:00; Start 01/20/19 at 01:45 Multivitamins (Thera-Plus Oral Liquid) 5 ml DAILY PEG Last administered on 01/27/19at 09:49; Start 01/21/19 at 09:00 Potassium Chloride (KCl Oral Soln) 40 meq 1X ONCE PO Last administered on 01/21/19 11:56; Start 01/21/19 at 11:00; Stop 01/21/19 at 11:01; Status DC Lansoprazole (Prevacid) 30 mg DAILY NG Last administered on 01/27/19at 09:50; Start 01/23/19 at 09:00 Potassium Chloride/Water 50 ml @ 50 mls/hr 1X ONCE IV Last administered on 01/23/19at 10:11; Start 01/23/19 at 10:00; Stop 01/23/19 at 10:59; Status DC Potassium Chloride (KCl Oral Soln) 20 meq 1X ONCE NG ; Start 01/23/19 at 10:15; Stop 01/23/19 at 10:16; Status DC Amoxicillin/ Clavulanate Potassium (Augmentin 875/ 125mg) 1 tab BID PO Last administered on 01/27/19at 09:49; Start 01/24/19 at 09:00 Furosemide (Lasix) 20 mg DAILY IVP ; Start 01/24/19 at 11:00; Stop 01/24/19 at 11:00; Status DC Furosemide (Lasix) 20 mg DAILY NG Last administered on 01/27/19at 09:50; Start 01/24/19 at 11:00 Potassium Chloride (KCl Oral Soln) 20 meq DAILY NG Last administered on 01/27/19at 09:50; Start 01/24/19 at 12:00 Barium Sulfate (Varibar Thin Liquid Apple) 148 gm 1X ONCE PO Last administered on 01/25/19at 13:15; Start 01/25/19 at 13:15; Stop 01/25/19 at 13:16; Status DC Haloperidol Lactate (Haldol Inj) 5 mg 1X ONCE IVP Last administered on 01/26/19at 07:33; Start 01/26/19 at 07:00; Stop 01/26/19 at 07:01; Status DC Haloperidol Lactate (Haldol Inj) 5 mg Q8HRS IVP Last administered on 01/26/19at 22:51; Start 01/26/19 at 14:00 Haloperidol Lactate (Haldol Inj) 5 mg 1X PRN PRN IVP AGITATION; Start 01/26/19 at 07:30; Stop 01/26/19 at 12:00; Status DC Diphenhydramine HCl (Benadryl) 25 mg PRN Q6HRS PRN IVP ITCHING; Start 01/26/19 at 16:45 Active Scripts Active [Multivitamins,Therapeutic Liq] 5 ML Liquid 5 Ml PEG DAILY Heparin Sodium (Heparin Sodium,Porcine) 5,000 Unit/1 Ml Vial 5,000 Unit SQ Q12HR Zosyn 2.25 Gram Vial (Piperacillin Sodium/Tazobactam) 2.25 Gm Vial 1 Each MC PRN DAILY PRN 10 Days ID doctor to decide on duration of iv zosyn Reported Vitamin C (Ascorbate Calcium) 500 Mg Tablet 500 Mg PO DAILY Aspirin 325 Mg Tablet 1 Tab PO DAILY Zofran (Ondansetron Hcl) 4 Mg Tablet 4 Mg PO PRN Q6HRS PRN B-1 (Thiamine HCl) 100 Mg Tablet 100 Mg PO DAILY Acetaminophen 160 Mg/5 Ml Oral.susp 650 Mg PO PRN Q4HRS PRN Mirtazapine 7.5 Mg Tablet 7.5 Mg PO QHS Albuterol Sulfate Neb Soln (Albuterol Sulfate) 2.5 Mg/3 Ml Vial.neb 2.5 Mg NEB BID Atorvastatin Calcium 10 Mg Tablet 10 Mg PO HS Protonix (Pantoprazole Sodium) 20 Mg Tablet.dr 40 Mg PO DAILY Amiodarone Hcl 200 Mg Tablet 1 Tab PO DAILY Seroquel (Quetiapine Fumarate) 25 Mg Tablet 25 Mg PO HS Tramadol Hcl 50 Mg Tablet 25 Mg PO Q6HRS PRN Seroquel (Quetiapine Fumarate) 25 Mg Tablet 12.5 Mg PO PRN Q6HRS PRN Vitals/I & O Vital Sign - Last 24 Hours 01/26/19 01/26/19 01/26/19 01/26/19 10:37 10:39 14:56 19:30 Temp 98.7 98.1 96.0 98.7 98.1 96.0 Pulse 112 103 107 Resp 26 22 22 B/P (MAP) 116/64 (81) 95/46 (62) 104/70 (81) Pulse Ox 68 91 92 85 O2 Delivery Nasal Cannula BiPAP/CPAP Nasal Cannula Nasal Cannula O2 Flow Rate 2.0 2.0 2.0 01/26/19 01/26/19 01/26/19 01/26/19 20:05 22:26 23:30 23:42 Temp 97.6 97.6 Pulse 100 Resp 26 B/P (MAP) 89/41 (57) Pulse Ox 95 91 97 O2 Delivery Nasal Cannula Nasal Cannula BiPAP/CPAP Nasal Cannula O2 Flow Rate 3.0 3.0 01/27/19 01/27/19 01/27/19 01/27/19 03:30 07:20 08:18 09:49 Temp 100.3 98.8 100.3 98.8 Pulse 108 106 106 Resp 20 B/P (MAP) 103/58 (73) 109/53 (71) 109/53 Pulse Ox 96 95 91 O2 Delivery Nasal Cannula Nasal Cannula Nasal Cannula O2 Flow Rate 3.0 3.0 3.0 Intake and Output 01/26/19 01/26/19 01/27/19 15:00 23:00 07:00 Intake Total 415 ml 240 ml 0 ml Output Total 850 ml 200 ml Balance 415 ml -610 ml -200 ml CHRISTINA CHAVARRIA MD January 27, 2019 10:20
[2019-01-27] MEDS: HEPARIN for SUB-Q USE 5,000 UNIT/ML VIAL. SQ SCH ×2 (10:46→21:02)
--- NOTE | 2019-01-27 11:20 | PDOC ---
Infectious Disease Note Subjective: Subjective Pt is lethargic answers very slowly Rapid called out by Staff no haldol given today per RN due to altered mental status sats on 50% on bipap pressures dropping ROS: ROS unable to obtain Vital Signs: Vital Signs Vital Signs Date Time Temp Pulse Resp B/P (MAP) Pulse Ox O2 Delivery O2 Flow Rate FiO2 01/27/19 09:49 106 109/53 01/27/19 08:18 91 Nasal Cannula 3.0 01/27/19 07:20 98.8 20 98.8 Physical Exam: PHYSICAL EXAM GENERAL: lethargic, arousable, in mitts HEENT: Oral cavity dry, edentulous Dobhoff in place NECK: Supple, LUNGS: Decreased breath sounds. HEART: S1, S2 ABDOMEN: Soft, nontender. EXTREMITIES: No edema or cyanosis. SCDs SKIN: No rash. sacrococcygeal area of stage 3 decubitus. NEUROLOGIC: lethargic, LUE-PICC clean Medications: Inpatient Meds: Current Medications Medications (Trade) Dose Ordered Sig/Destiny Start Time Stop Time Status Last Admin Dose Admin Acetaminophen (Tylenol) 650 mg PRN Q4HRS PRN 01/16/19 08:15 01/24/19 08:11 650 MG Albuterol Sulfate (Ventolin Neb Soln) 2.5 mg RTBID 01/15/19 20:00 01/27/19 08:16 2.5 MG Amiodarone HCl (Cordarone) 200 mg DAILY 01/16/19 09:00 01/27/19 09:49 200 MG Amoxicillin/ Clavulanate Potassium (Augmentin 875/ 125mg) 1 tab BID 01/24/19 09:00 01/27/19 10:40 DC 01/27/19 09:49 1 TAB Ascorbic Acid (Vitamin C) 500 mg DAILY 01/16/19 09:00 01/27/19 09:50 500 MG Aspirin (Dieudonne Aspirin) 325 mg DAILY 01/16/19 09:00 01/27/19 09:49 325 MG Atorvastatin Calcium (Lipitor) 10 mg HS 01/15/19 21:00 01/26/19 22:51 10 MG Barium Sulfate (Varibar Thin Liquid Apple) 148 gm 1X ONCE 01/25/19 13:15 01/25/19 13:16 DC 01/25/19 13:15 148 GM Calcium Gluconate (Calcium Gluconate) 1,000 mg 1X ONCE 01/15/19 15:30 01/15/19 15:31 DC 01/15/19 15:58 1,000 MG Carvedilol (Coreg) 3.125 mg BIDWMEALS 01/15/19 18:30 01/18/19 14:39 DC Dextrose (Dextrose 50%-Water Syringe) 12.5 gm PRN Q15MIN PRN 01/15/19 17:45 Diphenhydramine HCl (Benadryl) 25 mg PRN Q6HRS PRN 01/26/19 16:45 01/27/19 10:14 DC Dobutamine HCl/ Dextrose 250 ml @ 6.302 mls/ hr CONT PRN 01/19/19 16:00 01/24/19 19:57 DC 01/21/19 07:23 6.302 MLS/HR Docusate Sodium (Colace) 100 mg PRN DAILY PRN 01/15/19 17:15 Famotidine (Pepcid) 20 mg QHS 01/16/19 21:00 01/18/19 13:06 DC 01/17/19 21:08 20 MG Fentanyl Citrate (Fentanyl 2ml Vial) 50 mcg PRN Q2HR PRN 01/15/19 17:15 01/27/19 10:14 DC 01/25/19 14:48 50 MCG Furosemide (Lasix) 20 mg DAILY 01/24/19 11:00 01/27/19 10:14 DC 01/27/19 09:50 20 MG Haloperidol Lactate (Haldol Inj) 5 mg PRN Q8HRS PRN 01/27/19 10:15 Heparin Sodium (Porcine) (Heparin Sodium) 5,000 unit Q12HR 01/20/19 01:45 01/27/19 10:46 5,000 UNIT Insulin Human Lispro (HumaLOG) 0-5 UNITS Q6HRS 01/16/19 00:00 01/20/19 12:47 2 UNITS Lansoprazole (Prevacid) 30 mg DAILY 01/23/19 09:00 01/27/19 09:50 30 MG Linezolid/Dextrose 300 ml @ 300 mls/hr Q12HR 01/16/19 09:00 01/20/19 08:26 DC 01/19/19 21:52 300 MLS/HR Magnesium Hydroxide (Milk Of Magnesia) 2,400 mg PRN DAILY PRN 01/15/19 18:45 Magnesium Sulfate 50 ml @ 25 mls/hr 1X ONCE 01/19/19 12:30 01/19/19 14:29 DC 01/19/19 15:04 25 MLS/HR Midazolam HCl 100 ml @ 5 mls/hr CONT PRN 01/15/19 17:15 01/20/19 09:46 DC 01/19/19 05:03 8 MLS/HR Midazolam HCl (Versed) 5 mg 1X ONCE 01/15/19 15:00 01/15/19 15:01 DC 01/15/19 15:59 5 MG Mirtazapine (Remeron) 7.5 mg QHS 01/16/19 21:00 01/26/19 16:44 DC 01/25/19 21:07 7.5 MG Multivitamins (Thera-Plus Oral Liquid) 5 ml DAILY 01/21/19 09:00 01/27/19 09:49 5 ML Norepinephrine Bitartrate 250 ml @ 1.875 mls/ hr CONT PRN 01/15/19 17:00 01/22/19 10:32 DC 01/20/19 04:15 13.125 MLS/HR Ondansetron HCl (Zofran Odt) 4 mg PRN Q6HRS PRN 01/15/19 18:45 Pantoprazole Sodium (PROTONIX VIAL for IV PUSH) 40 mg DAILYAC 01/19/19 07:30 01/22/19 11:39 DC 01/22/19 08:33 40 MG Pantoprazole Sodium (Protonix) 40 mg DAILYAC 01/16/19 07:30 01/18/19 08:02 DC 01/18/19 07:52 40 MG Piperacillin Sod/ Tazobactam Sod (Zosyn Per Pharmacy) 1 each PRN DAILY PRN 01/15/19 17:45 UNV Piperacillin Sod/ Tazobactam Sod 2.25 gm/Sodium Chloride 50 ml @ 100 mls/hr Q6HRS 01/15/19 18:00 01/19/19 11:25 DC 01/19/19 05:59 100 MLS/HR Piperacillin Sod/ Tazobactam Sod 3.375 gm/Sodium Chloride 50 ml @ 100 mls/hr Q6HRS 01/27/19 12:00 Potassium Chloride/Water 50 ml @ 50 mls/hr 1X ONCE 01/23/19 10:00 01/23/19 10:59 DC 01/23/19 10:11 50 MLS/HR Potassium Chloride (KCl Oral Soln) 20 meq DAILY 01/24/19 12:00 01/27/19 10:14 DC 01/27/19 09:50 20 MEQ Propofol 50 ml @ As Directed STK-MED ONCE 01/15/19 15:02 01/15/19 15:03 DC Propofol (Diprivan) 200 mg 1X ONCE 01/15/19 15:00 01/15/19 15:06 DC Quetiapine Fumarate (SEROquel) 25 mg QHS 01/15/19 21:00 01/18/19 14:39 DC 01/17/19 21:08 25 MG Sodium Chloride 500 ml @ 250 mls/hr Q1HR PRN 01/17/19 19:15 Thiamine Mononitrate (Vitamin B-1) 100 mg DAILY 01/16/19 09:00 01/27/19 09:48 100 MG Tramadol HCl (Ultram) 25 mg PRN Q6HRS PRN 01/15/19 17:15 01/25/19 14:40 DC 01/23/19 20:14 25 MG Vancomycin HCl (Vanco Per Pharmacy) 1 each PRN DAILY PRN 01/15/19 17:45 01/16/19 08:06 DC 01/15/19 21:10 1 EACH Vancomycin HCl (Vancomycin Trough Level) 1 each 1X ONCE 01/17/19 20:30 01/17/19 20:31 Cancel Vancomycin HCl 1.25 gm/Sodium Chloride 250 ml @ 167 mls/hr Q24H 01/16/19 21:00 01/16/19 21:00 DC Vancomycin HCl 2 gm/Sodium Chloride 500 ml @ 250 mls/hr 1X ONCE 01/15/19 20:00 01/15/19 21:59 DC 01/15/19 20:56 250 MLS/HR Labs: Lab Laboratory Tests Test 01/26/19 12:10 01/26/19 18:24 01/27/19 05:00 Glucose (Fingerstick) 114 mg/dL (70-99) 161 mg/dL (70-99) White Blood Count 12.6 x10^3/uL (4.0-11.0) Red Blood Count 3.35 x10^6/uL (3.50-5.40) Hemoglobin 10.0 g/dL (12.0-15.5) Hematocrit 31.6 % (36.0-47.0) Mean Corpuscular Volume 94 fL (79-100) Mean Corpuscular Hemoglobin 30 pg (25-35) Mean Corpuscular Hemoglobin Concent 32 g/dL (31-37) Red Cell Distribution Width 19.4 % (11.5-14.5) Platelet Count 265 x10^3/uL (140-400) Neutrophils (%) (Auto) 86 % (31-73) Lymphocytes (%) (Auto) 7 % (24-48) Monocytes (%) (Auto) 6 % (0-9) Eosinophils (%) (Auto) 0 % (0-3) Basophils (%) (Auto) 1 % (0-3) Neutrophils # (Auto) 10.8 x10^3uL (1.8-7.7) Lymphocytes # (Auto) 0.9 x10^3/uL (1.0-4.8) Monocytes # (Auto) 0.8 x10^3/uL (0.0-1.1) Eosinophils # (Auto) 0.0 x10^3/uL (0.0-0.7) Basophils # (Auto) 0.1 x10^3/uL (0.0-0.2) Segmented Neutrophils % 78 % (35-66) Band Neutrophils % 11 % (0-9) Lymphocytes % 6 % (24-48) Monocytes % 5 % (0-10) Platelet Estimate Adequate (ADEQUATE) Polychromasia Slight Anisocytosis Slight Sodium Level 146 mmol/L (136-145) Potassium Level 4.0 mmol/L (3.5-5.1) Chloride Level 110 mmol/L (98-107) Carbon Dioxide Level 29 mmol/L (21-32) Anion Gap 7 (6-14) Blood Urea Nitrogen 55 mg/dL (7-20) Creatinine 1.2 mg/dL (0.6-1.0) Estimated GFR (Cockcroft-Gault) 44.3 Glucose Level 134 mg/dL (70-99) Calcium Level 9.0 mg/dL (8.5-10.1) Micro RUN DATE: 01/22/19 PAGE 1 RUN TIME: 1508 [facility] [address] [place] [address] Zia Keller M.D., Instrumentation Controls Engineer --- PATIENT: VASILIY ESPINAL ACCT: [id number] LOC: 1 [facility] ICU U: [id number] AGE/SX: 73/F ROOM: [facility] RE01/15/[address]: CHRISTINA CHAVARRIA MD : 1945 BED: 1 DIS: STATUS: ADM IN TLOC: SPEC #: [id number] LIAN: 01/20/19 STATUS: COMP REQ #: [id number] RECD: 01/20/[address] [facility] [address]: MICHELINE RYAN MD SOURCE: SPUTUM ENTR: 01/20/[address] [facility] [address]: CHRISTINA CHAVARRIA MD SPDESC: MICHELLE PASTOR MD, VENU S MD PASNOORI, VENKAT R MD SISILLO, SABATO MD ORDERED: SPUTUM CULTURE Procedure Result --------- GRAM STAIN WHITE BLOOD CELLS Final Few GRAM STAIN EPITHELIAL CELLS Final None seen GRAM STAIN RESULT 1 Final Comment Few gram positive cocci GRAM STAIN EVALUATION Final Comment This specimen is of good quality and is acceptable for routine bacterial culture. Performed at: [address] [id number] Hands Assembler: OSVALDO Freeman MD, Phone: [phone] SPUTUM CULTURE-LC Final Final report SPUTUM CULT RES 1 Final Yeast isolated. 3+ Request for further identification must be made within 1 week. Performed at: [address] [id number] Hands Assembler: OSVALDO Freeman MD, Phone: [phone] RUN DATE: 01/25/19 PAGE 1 RUN TIME: 1611 [facility] [address] [place] [address] Zia Keller M.D., Instrumentation Controls Engineer PATIENT: VASILIY ESPINAL ACCT: [id number] LOC: [address] [place] [address] U: [id number] AGE/SX: 73/F ROOM: 673 RE01/15/[address]: CHRISTINA CHAVARRIA MD : 1945 BED: 1 DIS: STATUS: ADM IN TLOC: -------- SPEC #: [id number] LIAN: 01/19/19 STATUS: RES REQ #: [id number] RECD: 01/19/[address]: GISELLA MCNEAL MD SOURCE: PLEURAL FL ENTR: 01/18/[address] [facility] [address]: MICHELINE RYAN MD SPDESC: CHRISTINA CHAVARRIA MD, AHMED M MD NAIR, VENU S MD PASNOORI, VENKAT R MD ORDERED: ANAER/AEROB/GS Procedure Result ANAEROBIC-AEROBIC CULTURE PENDING ANAEROBIC RES 1 PENDING AEROBIC CULT Preliminary Preliminary report AEROBIC RES 1 Preliminary Comment No growth in 36 - 48 hours. GRAM STAIN Final Final report GRAM STAIN RES 1 Final Comment No white blood cells seen. GRAM STAIN RES 2 Final No organisms seen Performed at: - [facility] [address] [facility] [address] [address] [address], [place], [place] [id number] Hands Assembler: OSVALDO Freeman MD, Phone: [phone] Objective: Assessment: Fever, low grade Left loculated effusion, s/p thoracentesis on 01/19. Cultures neg Respiratory failure s/p extubation Circulatory failure CHF/Cardiomyopathy A fib, on amiodarone DM Stage 3 , sacral ulcer Anemia s/p PRBCs Yeast in urine, 01/16 Dysphagia Encephalopathy Plan: Plan of Care DC augmentin restart zosyn and zyvox f/u cultures local wound care Condition guarded Prognosis poor d/w RN JEFF RYAN MD January 27, 2019 11:20
[2019-01-27] MEDS: PIPERACILLIN/TAZOBACTAM 3.375 GM in IV NORMAL SALINE 50ML 50 ML IV SCH ×2 (11:42→17:54)
--- NOTE | 2019-01-27 11:50 | NUR ---
At 1110, patient was noted to be lethargic and slow to respond. Vital signs taken were BP 84/54 HR 109 RR 25 Temp 99.1 O2 sat at 79% at 3LPM per nasal cannula, blood glucose at5 162. We placed her BiPAP, O2 at 40%, repeat VS were BP 101/45 HR 109 RR20 O2 sat at 80%---95%. Rapid response was called at 1118, Dr. Remi Sun who was rounding the unit was also informed of the status change. Dr. Garza paged at 1125 and at 1130, order received to transfer the patient to the ICU. Antibiotic pip tazo was started. The patient was transferred to the ICU at 1150.
--- NOTE | 2019-01-27 12:00 | NUR ---
Rapid resp: called to rm [id number] see pt familiar to this ICU nurse. Staff mstated pt had been on Bipap thru night then placed on 2-3l n/c this am and had been doing well and had already been seen by Dr garza today. staff stated that o2 sat went down as well as BP and that pr was less responsive. Was placed on Bipap prior to my arrival. dr Garza spoke with floor nurse and order rec'd to transfer to ICU, Palliative nurse here and will notify daughter Cruz. Transferred to ICU with Venti mask 50% and then placed on Bipap in ICU. dr France notified and will see pt in ICU. Will get ABG in 1 hr. NG replaced as was not patent. BP stable at this time.
--- NOTE | 2019-01-27 12:01 | EKG ---
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
--- NOTE | 2019-01-27 12:02 | PDOC2 ---
PALLIATIVE CARE Palliative Care Note Palliative Care Patient tolerated BiPap well throughout the night. Changed to NC 3L this am. Tolerating well. 1145 Patient desat to 60's. B/P declined. More congested per staff. Spoke with daughter Jennifer. updated on above. Informed patient is moving to ICU. Confirmed goals: Full Code and full aggressive care. Jennifer confirmed and acknowledges understanding. She will inform her siblings. JOSSE PAGE January 27, 2019 12:02
[2019-01-27 13:29] LABS: BILIRUBIN,URINE NEGATIVE (NEG); CLARITY,URINE TURBID; COLOR,URINE YELLOW; NITRITE,URINE NEGATIVE (NEG); PROTEIN,URINE 30 mg/dL (NEG-TRACE); UROBILINOGEN,URINE 0.2 mg/dL (0.2 mg/dL)
[2019-01-27 13:45] LABS: BACTERIA,URINE MODERATE /HPF (0-FEW); WBC,URINE TNTC /HPF (0-4); YEAST,URINE PRESENT /HPF
[2019-01-27 14:18] LABS: BASE EXCESS ABG 1 mmol/L (-3-3); HCO3 ABG 27 mmol/L (21-28); PCO2 ABG 49 mmHg (35-46); PO2 ABG 52 mmHg (65-108); SAT O2 ABG 86 % (92-99)
[2019-01-27 14:23] LABS: FIO2 ABG 40
--- NOTE | 2019-01-27 14:32 | RAD ---
AP view of the abdomen Clinical indications: NG tube placement. FINDINGS/ IMPRESSION: Tip of an NG tube is seen within the mid body of the stomach. No significant dilatation of large or small bowel is evident. Electronically signed by: Josse Healy MD (01/27/2019 2:30 PM) [facility]
[2019-01-27] MEDS: DEXMEDETOMIDINE 200 MCG in IV NORMAL SALINE 50ML 48 ML IV PRN ×2 (15:32→19:55)
[2019-01-27] MEDS: NOREPINEPHRIN 8MG/250ML PREMIX 250 ML IV PRN (16:38)
[2019-01-27] MEDS: ACETAMINOPHEN 650 MG/20.3 ML SOLUTION. PEG PRN (17:11)
--- NOTE | 2019-01-27 20:00 | NUR ---
Patient's U/O low. Dr Greg calhoun, updated on patient condition, vital signs, and U/O. Orders received to start NS at 40 cc/hr to increase U/O. No need to call during night if U/O continues to be low.
[2019-01-27] MEDS: IV NORMAL SALINE 1000ML BAG 1,000 ML IV SCH (20:09)
[2019-01-27] MEDS: ATORVASTATIN CALCIUM 10 MG TABLET. PO SCH (21:01)
[2019-01-28] VITALS (29 sets, daily range): BP systolic 91–117; BP diastolic 44–67
[2019-01-28] MEDS: DEXMEDETOMIDINE 200 MCG in IV NORMAL SALINE 50ML 48 ML IV PRN ×9 (00:07→23:29)
[2019-01-28] MEDS: PIPERACILLIN/TAZOBACTAM 3.375 GM in IV NORMAL SALINE 50ML 50 ML IV SCH ×5 (00:09→23:34)
[2019-01-28] MEDS: INSULIN LISPRO 300 UNITS/3 ML INSULN.PEN. SQ SCH ×5 (00:12→23:34)
[2019-01-28 05:17] LABS: BASO # 0.1 x10^3/uL (0.0-0.2); BASO % 1 % (0-3); EOS # 0.2 x10^3/uL (0.0-0.7); EOS % 2 % (0-3); HEMATOCRIT 32.1 % (36.0-47.0); HEMOGLOBIN 9.8 g/dL (12.0-15.5); LYMPH # 0.9 x10^3/uL (1.0-4.8); LYMPH % 7 % (24-48); MEAN CORPUSCULAR HEMOGLOBIN 30 pg (25-35); MEAN CORPUSCULAR HGB CONC 31 g/dL (31-37); MEAN CORPUSCULAR VOLUME 97 fL (79-100); MONO # 0.7 x10^3/uL (0.0-1.1); MONO % 6 % (0-9); NEUT # 11.2 x10^3uL (1.8-7.7); NEUT % 85 % (31-73); PLATELET COUNT 342 x10^3/uL (140-400); RED BLOOD COUNT 3.33 x10^6/uL (3.50-5.40); RED CELL DISTRIBUTION WIDTH 20.3 % (11.5-14.5); WHITE BLOOD COUNT 13.1 x10^3/uL (4.0-11.0)
[2019-01-28 05:33] LABS: CALCIUM 8.5 mg/dL (8.5-10.1); CREATININE 1.4 mg/dL (0.6-1.0); GFR 37.1; POTASSIUM 4.2 mmol/L (3.5-5.1)
[2019-01-28] MEDS: ALBUTEROL SULFATE 2.5 MG/3 ML NEBU. NEB SCH ×2 (07:30→20:28)
--- NOTE | 2019-01-28 07:57 | PDOC ---
Infectious Disease Note Subjective Subjective Sedated on BiPAP, FiO2 45% Hypotensive, on Levophed 6 mcg + diarrhea Tube feedings @ 40 ml/hr Fever 102.5 last evening ROS ROS unobtainable Vital Sign Vital Signs Vital Signs Date Time Temp Pulse Resp B/P (MAP) Pulse Ox O2 Delivery O2 Flow Rate FiO2 01/28/19 07:00 76 23 103/53 (70) 94 BiPAP/CPAP 01/28/19 04:00 98.4 98.4 01/27/19 08:18 3.0 Physical Exam PHYSICAL EXAM GENERAL: Sedated, on BiPAP, + mitts HEENT: CLARIBEL. OGT NECK: Supple, LUNGS: Expiratory rhonchi HEART: S1, S2 ABDOMEN: Obese, soft, BS active, rectal tube in place : Kahn in place EXTREMITIES: Generalized trace edema, no cyanosis SKIN: No rash. sacrococcygeal area of stage 3 decubitus. NEUROLOGIC: Unresponsive/sedated LUE-PICC clean Labs Lab Laboratory Tests Test 01/27/19 11:16 01/27/19 13:10 01/27/19 14:10 01/27/19 17:52 Glucose (Fingerstick) 162 mg/dL (70-99) 122 mg/dL (70-99) Urine Collection Type Unknown Urine Color Yellow Urine Clarity Turbid Urine pH 5.0 Urine Specific [place] 1.020 Urine Protein 30 mg/dL (NEG-TRACE) Urine Glucose (UA) Negative mg/dL (NEG) Urine Ketones (Stick) Negative mg/dL (NEG) Urine Blood Large (NEG) Urine Nitrite Negative (NEG) Urine Bilirubin Negative (NEG) Urine Urobilinogen Dipstick 0.2 mg/dL (0.2 mg/dL) Urine Leukocyte Esterase Large (NEG) Urine RBC 11-20 /HPF (0-2) Urine WBC Tntc /HPF (0-4) Urine Bacteria Moderate /HPF (0-FEW) Urine Yeast Present /HPF O2 Saturation 86 % (92-99) Arterial Blood pH 7.36 (7.35-7.45) Arterial Blood pCO2 at Patient Temp 49 mmHg (35-46) Arterial Blood pO2 at Patient Temp 52 mmHg (65-108) Arterial Blood HCO3 27 mmol/L (21-28) Arterial Blood Base Excess 1 mmol/L (-3-3) FiO2 40 Test 01/28/19 00:11 01/28/19 04:45 01/28/19 05:55 Glucose (Fingerstick) 240 mg/dL (70-99) 206 mg/dL (70-99) White Blood Count 13.1 x10^3/uL (4.0-11.0) Red Blood Count 3.33 x10^6/uL (3.50-5.40) Hemoglobin 9.8 g/dL (12.0-15.5) Hematocrit 32.1 % (36.0-47.0) Mean Corpuscular Volume 97 fL (79-100) Mean Corpuscular Hemoglobin 30 pg (25-35) Mean Corpuscular Hemoglobin Concent 31 g/dL (31-37) Red Cell Distribution Width 20.3 % (11.5-14.5) Platelet Count 342 x10^3/uL (140-400) Neutrophils (%) (Auto) 85 % (31-73) Lymphocytes (%) (Auto) 7 % (24-48) Monocytes (%) (Auto) 6 % (0-9) Eosinophils (%) (Auto) 2 % (0-3) Basophils (%) (Auto) 1 % (0-3) Neutrophils # (Auto) 11.2 x10^3uL (1.8-7.7) Lymphocytes # (Auto) 0.9 x10^3/uL (1.0-4.8) Monocytes # (Auto) 0.7 x10^3/uL (0.0-1.1) Eosinophils # (Auto) 0.2 x10^3/uL (0.0-0.7) Basophils # (Auto) 0.1 x10^3/uL (0.0-0.2) Sodium Level 145 mmol/L (136-145) Potassium Level 4.2 mmol/L (3.5-5.1) Chloride Level 110 mmol/L (98-107) Carbon Dioxide Level 28 mmol/L (21-32) Anion Gap 7 (6-14) Blood Urea Nitrogen 57 mg/dL (7-20) Creatinine 1.4 mg/dL (0.6-1.0) Estimated GFR (Cockcroft-Gault) 37.1 Glucose Level 219 mg/dL (70-99) Calcium Level 8.5 mg/dL (8.5-10.1) Objective Assessment Fever Leucocytosis Left loculated effusion, s/p thoracentesis on 01/19. Cultures neg. sputum neg 01/20 Respiratory failure s/p extubation, now on BiPAP Circulatory failure CHF/Cardiomyopathy DM A fib, on amiodarone Stage 3 , sacral ulcer Anemia s/p PRBCs Yeast in urine, 01/16 Dysphagia Encephalopathy Plan Plan of Care Zyvox and Zosyn, restarted on 01/27 Repeat urine and blood cultures, 01/27 pending local wound care Labs in am D/w RN Condition guarded Prognosis poor Patient seen and examined. Chart reviewed in detail. Case discussed with FLAVORING MACHINE OPERATOR. Agree with above plan. MELECIO AG APRN January 28, 2019 07:57 JONNATHAN RIVERA MD January 28, 2019 22:15
[2019-01-28] MEDS: AMIODARONE HCL 200 MG TABLET. PO SCH (08:17)
[2019-01-28] MEDS: LANSOPRAZOLE 30 MG TAB.RAP.DR NG SCH (08:17)
[2019-01-28] MEDS: ASCORBIC ACID 500 MG TABLET PO SCH (08:17)
[2019-01-28] MEDS: THIAMINE 100 MG TABLET. PO SCH (08:17)
[2019-01-28] MEDS: ASPIRIN 325 MG TABLET PO SCH (08:17)
[2019-01-28] MEDS: HEPARIN for SUB-Q USE 5,000 UNIT/ML VIAL. SQ SCH ×2 (08:18→20:40)
[2019-01-28] MEDS: MULTIVITAMINS,THERAPEUTIC 5 ML ORAL LIQUID. PEG SCH (08:18)
[2019-01-28 08:40] LABS: BASE EXCESS ABG -2 mmol/L (-3-3); HCO3 ABG 25 mmol/L (21-28); PCO2 ABG 50 mmHg (35-46); PO2 ABG 85 mmHg (65-108); SAT O2 ABG 96 % (92-99)
--- NOTE | 2019-01-28 10:20 | PDOC ---
CARDIOLOGY PROGRESS NOTE SUBJECTIVE: Remains sedated and on Bipap Fevers and on Levophed. Spoke extensively with patient's family. She had a normal angiogram in Oct 2018, had EF of 15% and renal failure. She has been struggling with resp failure - etiology unclear (? recurrent PNA, debility?, critical illness? myopathy) OBJECTIVE: Vital SIgns: Vital Signs Date Time Temp Pulse Resp B/P (MAP) Pulse Ox O2 Delivery O2 Flow Rate FiO2 01/28/19 10:00 76 18 105/62 (76) 99 BiPAP/CPAP 01/28/19 08:00 98.1 98.1 01/27/19 08:18 3.0 I & O Intake and Output 01/28/19 07:00 Intake Total 3092.4 ml Output Total 692 ml Balance 2400.4 ml Intake Oral 0 ml IV Total 1368.4 ml Tube Feeding 1374 ml Other 350 ml Output Urine Total 692 ml Objective: Sedated. No edema. Soft abd Bilateral rhonchi regular heart tones. no m/r/g CURRENT MEDICATIONS: Current Medications Medications (Trade) Dose Ordered Sig/Destiny Start Time Stop Time Status Last Admin Dose Admin Acetaminophen (Tylenol) 650 mg PRN Q4HRS PRN 01/16/19 08:15 01/27/19 17:11 650 MG Albuterol Sulfate (Ventolin Neb Soln) 2.5 mg RTBID 01/15/19 20:00 01/28/19 07:30 2.5 MG Amiodarone HCl (Cordarone) 200 mg DAILY 01/16/19 09:00 01/28/19 08:17 200 MG Amoxicillin/ Clavulanate Potassium (Augmentin 875/ 125mg) 1 tab BID 01/24/19 09:00 01/27/19 10:40 DC 01/27/19 09:49 1 TAB Ascorbic Acid (Vitamin C) 500 mg DAILY 01/16/19 09:00 01/28/19 08:17 500 MG Aspirin (Dieudonne Aspirin) 325 mg DAILY 01/16/19 09:00 01/28/19 08:17 325 MG Atorvastatin Calcium (Lipitor) 10 mg HS 01/15/19 21:00 01/27/19 21:01 10 MG Barium Sulfate (Varibar Thin Liquid Apple) 148 gm 1X ONCE 01/25/19 13:15 01/25/19 13:16 DC 01/25/19 13:15 148 GM Calcium Gluconate (Calcium Gluconate) 1,000 mg 1X ONCE 01/15/19 15:30 01/15/19 15:31 DC 01/15/19 15:58 1,000 MG Carvedilol (Coreg) 3.125 mg BIDWMEALS 01/15/19 18:30 01/18/19 14:39 DC Dexmedetomidine HCl 200 mcg/ Sodium Chloride 50 ml @ 0 mls/hr CONT PRN 01/27/19 15:15 01/28/19 08:01 13.4 MLS/HR Dextrose (Dextrose 50%-Water Syringe) 12.5 gm PRN Q15MIN PRN 01/15/19 17:45 Diphenhydramine HCl (Benadryl) 25 mg PRN Q6HRS PRN 01/26/19 16:45 01/27/19 10:14 DC Dobutamine HCl/ Dextrose 250 ml @ 6.302 mls/ hr CONT PRN 01/19/19 16:00 01/24/19 19:57 DC 01/21/19 07:23 6.302 MLS/HR Docusate Sodium (Colace) 100 mg PRN DAILY PRN 01/15/19 17:15 Famotidine (Pepcid) 20 mg QHS 01/16/19 21:00 01/18/19 13:06 DC 01/17/19 21:08 20 MG Fentanyl Citrate (Fentanyl 2ml Vial) 50 mcg PRN Q2HR PRN 01/15/19 17:15 01/27/19 10:14 DC 01/25/19 14:48 50 MCG Furosemide (Lasix) 20 mg DAILY 01/24/19 11:00 01/27/19 10:14 DC 01/27/19 09:50 20 MG Haloperidol Lactate (Haldol Inj) 5 mg PRN Q8HRS PRN 01/27/19 10:15 01/27/19 14:27 5 MG Heparin Sodium (Porcine) (Heparin Sodium) 5,000 unit Q12HR 01/20/19 01:45 01/28/19 08:18 5,000 UNIT Insulin Human Lispro (HumaLOG) 0-5 UNITS Q6HRS 01/16/19 00:00 01/28/19 06:03 3 UNITS Lansoprazole (Prevacid) 30 mg DAILY 01/23/19 09:00 01/28/19 08:17 30 MG Linezolid/Dextrose 300 ml @ 300 mls/hr Q12HR 01/27/19 12:00 01/28/19 08:18 300 MLS/HR Magnesium Hydroxide (Milk Of Magnesia) 2,400 mg PRN DAILY PRN 01/15/19 18:45 Magnesium Sulfate 50 ml @ 25 mls/hr 1X ONCE 01/19/19 12:30 01/19/19 14:29 DC 01/19/19 15:04 25 MLS/HR Midazolam HCl 100 ml @ 5 mls/hr CONT PRN 01/15/19 17:15 01/20/19 09:46 DC 01/19/19 05:03 8 MLS/HR Midazolam HCl (Versed) 5 mg 1X ONCE 01/15/19 15:00 01/15/19 15:01 DC 01/15/19 15:59 5 MG Mirtazapine (Remeron) 7.5 mg QHS 01/16/19 21:00 01/26/19 16:44 DC 01/25/19 21:07 7.5 MG Multivitamins (Thera-Plus Oral Liquid) 5 ml DAILY 01/21/19 09:00 01/28/19 08:18 5 ML Norepinephrine Bitartrate 250 ml @ 1.875 mls/ hr CONT PRN 01/27/19 16:30 01/27/19 16:38 1.875 MLS/HR Ondansetron HCl (Zofran Odt) 4 mg PRN Q6HRS PRN 01/15/19 18:45 Pantoprazole Sodium (PROTONIX VIAL for IV PUSH) 40 mg DAILYAC 01/19/19 07:30 01/22/19 11:39 DC 01/22/19 08:33 40 MG Pantoprazole Sodium (Protonix) 40 mg DAILYAC 01/16/19 07:30 01/18/19 08:02 DC 01/18/19 07:52 40 MG Piperacillin Sod/ Tazobactam Sod (Zosyn Per Pharmacy) 1 each PRN DAILY PRN 01/15/19 17:45 UNV Piperacillin Sod/ Tazobactam Sod 2.25 gm/Sodium Chloride 50 ml @ 100 mls/hr Q6HRS 01/15/19 18:00 01/19/19 11:25 DC 01/19/19 05:59 100 MLS/HR Piperacillin Sod/ Tazobactam Sod 3.375 gm/Sodium Chloride 50 ml @ 100 mls/hr Q6HRS 01/27/19 12:00 01/28/19 05:57 100 MLS/HR Potassium Chloride/Water 50 ml @ 50 mls/hr 1X ONCE 01/23/19 10:00 01/23/19 10:59 DC 01/23/19 10:11 50 MLS/HR Potassium Chloride (KCl Oral Soln) 20 meq DAILY 01/24/19 12:00 01/27/19 10:14 DC 01/27/19 09:50 20 MEQ Propofol 50 ml @ As Directed STK-MED ONCE 01/15/19 15:02 01/15/19 15:03 DC Propofol (Diprivan) 200 mg 1X ONCE 01/15/19 15:00 01/15/19 15:06 DC Quetiapine Fumarate (SEROquel) 25 mg QHS 01/15/19 21:00 01/18/19 14:39 DC 01/17/19 21:08 25 MG Sodium Chloride 1,000 ml @ 40 mls/hr Q24H 01/27/19 20:15 01/27/19 20:09 40 MLS/HR Thiamine Mononitrate (Vitamin B-1) 100 mg DAILY 01/16/19 09:00 01/28/19 08:17 100 MG Tramadol HCl (Ultram) 25 mg PRN Q6HRS PRN 01/15/19 17:15 01/25/19 14:40 DC 01/23/19 20:14 25 MG Vancomycin HCl (Vanco Per Pharmacy) 1 each PRN DAILY PRN 01/15/19 17:45 01/16/19 08:06 DC 01/15/19 21:10 1 EACH Vancomycin HCl (Vancomycin Trough Level) 1 each 1X ONCE 01/17/19 20:30 01/17/19 20:31 Cancel Vancomycin HCl 1.25 gm/Sodium Chloride 250 ml @ 167 mls/hr Q24H 01/16/19 21:00 01/16/19 21:00 DC Vancomycin HCl 2 gm/Sodium Chloride 500 ml @ 250 mls/hr 1X ONCE 01/15/19 20:00 01/15/19 21:59 DC 01/15/19 20:56 250 MLS/HR DIAGNOSTIC TESTING: CXR reviewed - No clear infiltrates. Mild edema. ASSESSMENT: 1. Acute on chronic respiratory failure - on BiPAP 2. Hypotension - likely septic shock on levophed 3. Acute on chronic systolic heart failure - EF 35% 4. CKD PLAN: 1. Continue supportive care. 2. IVF and pressors as needed. 3. Trach and PEG being considered by family. Poor prison prognosis. No further CV testing needed. If she has volume overload, may need prison milrinone therapy etc but will await recovery from acute issues of fever etc. DEMAR WRIGHT MD January 28, 2019 10:20
--- NOTE | 2019-01-28 10:27 | PDOC ---
PROGRESS NOTES Subjective Subjective transferred to icu with hypoxia and placed on bipap. hypotensive and on iv levophed. febrile temp max 102.5 yesterday and started iv zyvox and zosyn. discussed with family and dr. machado and dr. Nielsen. family wants to proceed with tracheostomy and PEG and okay with dr. machado and dr. nielsen. sedated on bipap Objective Objective Vital Signs Date Time Temp Pulse Resp B/P (MAP) Pulse Ox O2 Delivery O2 Flow Rate FiO2 01/28/19 10:00 76 18 105/62 (76) 99 BiPAP/CPAP 01/28/19 08:00 98.1 98.1 01/27/19 08:18 3.0 Intake and Output 01/28/19 07:00 Intake Total 3092.4 ml Output Total 692 ml Balance 2400.4 ml Intake Oral 0 ml IV Total 1368.4 ml Tube Feeding 1374 ml Other 350 ml Output Urine Total 692 ml Physical Exam Abdomen: Soft Heart: Regular rate, Normal S1, Normal S2 Extremities: Other (trace edema legs) General: Other (sedated on bipap) HEENT: Atraumatic Lungs: Other (decreased breath sounds anteriorly) Neuro: Other (sedated) Psych/Mental Status: Other (sedated) Skin: No rashes Assessment Assessment Problemsrecurrent respiratory arrest. 5. Acute kidney injury most likely secondary to the cardiopulmonary arrest resolved 6. Hypotension on levophed 7. Elevated liver function tests improved 8. Nonischemic cardiomyopathy with improvement of left ventricular ejection fraction 15-20% improved to 40%. 9. Acute on chronic hypoxic and hypercapnic respiratory failure on bipap 10. sepsis with shock 11. Acute on chronic systolic congestive heart failure compensated clinically 12. Paroxysmal atrial fibrillation, but not a candidate for Pradaxa due to recent gastrointestinal bleed in 06/2018 from gastric ulcer. 13. Oropharyngeal dysphagia 14. Diabetes mellitus type 2. 15. Mild coronary artery disease. suspected sleep apnea. needs out patient sleep study and hs bipap metabolic and toxic encephalopathy fever leukocytosis pyuria Medical Problems: (1) Cardiac arrest Status: Acute (2) HCAP (healthcare-associated pneumonia) Status: Acute (3) Liver failure Status: Acute Plan Plan of Care continue bipap continue zyvox and zosyn continue iv fluids consult dr. haynes for peg consult ENT for tracheostomy continue levophed await blood and urine cultures continue heparin for dvt prophylaxis iv famotidine Comment Review of Relevant I have reviewed the following items kristen (where applicable) has been applied. Labs Laboratory Tests Test 01/26/19 12:10 01/26/19 18:24 01/27/19 05:00 01/27/19 11:16 Glucose (Fingerstick) 114 mg/dL (70-99) 161 mg/dL (70-99) 162 mg/dL (70-99) White Blood Count 12.6 x10^3/uL (4.0-11.0) Red Blood Count 3.35 x10^6/uL (3.50-5.40) Hemoglobin 10.0 g/dL (12.0-15.5) Hematocrit 31.6 % (36.0-47.0) Mean Corpuscular Volume 94 fL (79-100) Mean Corpuscular Hemoglobin 30 pg (25-35) Mean Corpuscular Hemoglobin Concent 32 g/dL (31-37) Red Cell Distribution Width 19.4 % (11.5-14.5) Platelet Count 265 x10^3/uL (140-400) Neutrophils (%) (Auto) 86 % (31-73) Lymphocytes (%) (Auto) 7 % (24-48) Monocytes (%) (Auto) 6 % (0-9) Eosinophils (%) (Auto) 0 % (0-3) Basophils (%) (Auto) 1 % (0-3) Neutrophils # (Auto) 10.8 x10^3uL (1.8-7.7) Lymphocytes # (Auto) 0.9 x10^3/uL (1.0-4.8) Monocytes # (Auto) 0.8 x10^3/uL (0.0-1.1) Eosinophils # (Auto) 0.0 x10^3/uL (0.0-0.7) Basophils # (Auto) 0.1 x10^3/uL (0.0-0.2) Segmented Neutrophils % 78 % (35-66) Band Neutrophils % 11 % (0-9) Lymphocytes % 6 % (24-48) Monocytes % 5 % (0-10) Platelet Estimate Adequate (ADEQUATE) Polychromasia Slight Anisocytosis Slight Sodium Level 146 mmol/L (136-145) Potassium Level 4.0 mmol/L (3.5-5.1) Chloride Level 110 mmol/L (98-107) Carbon Dioxide Level 29 mmol/L (21-32) Anion Gap 7 (6-14) Blood Urea Nitrogen 55 mg/dL (7-20) Creatinine 1.2 mg/dL (0.6-1.0) Estimated GFR (Cockcroft-Gault) 44.3 Glucose Level 134 mg/dL (70-99) Calcium Level 9.0 mg/dL (8.5-10.1) Test 01/27/19 13:10 01/27/19 14:10 01/27/19 17:52 01/28/19 00:11 Urine Collection Type Unknown Urine Color Yellow Urine Clarity Turbid Urine pH 5.0 Urine Specific [place] 1.020 Urine Protein 30 mg/dL (NEG-TRACE) Urine Glucose (UA) Negative mg/dL (NEG) Urine Ketones (Stick) Negative mg/dL (NEG) Urine Blood Large (NEG) Urine Nitrite Negative (NEG) Urine Bilirubin Negative (NEG) Urine Urobilinogen Dipstick 0.2 mg/dL (0.2 mg/dL) Urine Leukocyte Esterase Large (NEG) Urine RBC 11-20 /HPF (0-2) Urine WBC Tntc /HPF (0-4) Urine Bacteria Moderate /HPF (0-FEW) Urine Yeast Present /HPF O2 Saturation 86 % (92-99) Arterial Blood pH 7.36 (7.35-7.45) Arterial Blood pCO2 at Patient Temp 49 mmHg (35-46) Arterial Blood pO2 at Patient Temp 52 mmHg (65-108) Arterial Blood HCO3 27 mmol/L (21-28) Arterial Blood Base Excess 1 mmol/L (-3-3) FiO2 40 Glucose (Fingerstick) 122 mg/dL (70-99) 240 mg/dL (70-99) Test 01/28/19 04:45 01/28/19 05:55 01/28/19 08:00 White Blood Count 13.1 x10^3/uL (4.0-11.0) Red Blood Count 3.33 x10^6/uL (3.50-5.40) Hemoglobin 9.8 g/dL (12.0-15.5) Hematocrit 32.1 % (36.0-47.0) Mean Corpuscular Volume 97 fL (79-100) Mean Corpuscular Hemoglobin 30 pg (25-35) Mean Corpuscular Hemoglobin Concent 31 g/dL (31-37) Red Cell Distribution Width 20.3 % (11.5-14.5) Platelet Count 342 x10^3/uL (140-400) Neutrophils (%) (Auto) 85 % (31-73) Lymphocytes (%) (Auto) 7 % (24-48) Monocytes (%) (Auto) 6 % (0-9) Eosinophils (%) (Auto) 2 % (0-3) Basophils (%) (Auto) 1 % (0-3) Neutrophils # (Auto) 11.2 x10^3uL (1.8-7.7) Lymphocytes # (Auto) 0.9 x10^3/uL (1.0-4.8) Monocytes # (Auto) 0.7 x10^3/uL (0.0-1.1) Eosinophils # (Auto) 0.2 x10^3/uL (0.0-0.7) Basophils # (Auto) 0.1 x10^3/uL (0.0-0.2) Sodium Level 145 mmol/L (136-145) Potassium Level 4.2 mmol/L (3.5-5.1) Chloride Level 110 mmol/L (98-107) Carbon Dioxide Level 28 mmol/L (21-32) Anion Gap 7 (6-14) Blood Urea Nitrogen 57 mg/dL (7-20) Creatinine 1.4 mg/dL (0.6-1.0) Estimated GFR (Cockcroft-Gault) 37.1 Glucose Level 219 mg/dL (70-99) Calcium Level 8.5 mg/dL (8.5-10.1) Glucose (Fingerstick) 206 mg/dL (70-99) O2 Saturation 96 % (92-99) Arterial Blood pH 7.32 (7.35-7.45) Arterial Blood pCO2 at Patient Temp 50 mmHg (35-46) Arterial Blood pO2 at Patient Temp 85 mmHg (65-108) Arterial Blood HCO3 25 mmol/L (21-28) Arterial Blood Base Excess -2 mmol/L (-3-3) FiO2 45% bipap Laboratory Tests Test 01/27/19 11:16 01/27/19 13:10 01/27/19 14:10 01/27/19 17:52 Glucose (Fingerstick) 162 mg/dL (70-99) 122 mg/dL (70-99) Urine Collection Type Unknown Urine Color Yellow Urine Clarity Turbid Urine pH 5.0 Urine Specific [place] 1.020 Urine Protein 30 mg/dL (NEG-TRACE) Urine Glucose (UA) Negative mg/dL (NEG) Urine Ketones (Stick) Negative mg/dL (NEG) Urine Blood Large (NEG) Urine Nitrite Negative (NEG) Urine Bilirubin Negative (NEG) Urine Urobilinogen Dipstick 0.2 mg/dL (0.2 mg/dL) Urine Leukocyte Esterase Large (NEG) Urine RBC 11-20 /HPF (0-2) Urine WBC Tntc /HPF (0-4) Urine Bacteria Moderate /HPF (0-FEW) Urine Yeast Present /HPF O2 Saturation 86 % (92-99) Arterial Blood pH 7.36 (7.35-7.45) Arterial Blood pCO2 at Patient Temp 49 mmHg (35-46) Arterial Blood pO2 at Patient Temp 52 mmHg (65-108) Arterial Blood HCO3 27 mmol/L (21-28) Arterial Blood Base Excess 1 mmol/L (-3-3) FiO2 40 Test 01/28/19 00:11 01/28/19 04:45 01/28/19 05:55 01/28/19 08:00 Glucose (Fingerstick) 240 mg/dL (70-99) 206 mg/dL (70-99) White Blood Count 13.1 x10^3/uL (4.0-11.0) Red Blood Count 3.33 x10^6/uL (3.50-5.40) Hemoglobin 9.8 g/dL (12.0-15.5) Hematocrit 32.1 % (36.0-47.0) Mean Corpuscular Volume 97 fL (79-100) Mean Corpuscular Hemoglobin 30 pg (25-35) Mean Corpuscular Hemoglobin Concent 31 g/dL (31-37) Red Cell Distribution Width 20.3 % (11.5-14.5) Platelet Count 342 x10^3/uL (140-400) Neutrophils (%) (Auto) 85 % (31-73) Lymphocytes (%) (Auto) 7 % (24-48) Monocytes (%) (Auto) 6 % (0-9) Eosinophils (%) (Auto) 2 % (0-3) Basophils (%) (Auto) 1 % (0-3) Neutrophils # (Auto) 11.2 x10^3uL (1.8-7.7) Lymphocytes # (Auto) 0.9 x10^3/uL (1.0-4.8) Monocytes # (Auto) 0.7 x10^3/uL (0.0-1.1) Eosinophils # (Auto) 0.2 x10^3/uL (0.0-0.7) Basophils # (Auto) 0.1 x10^3/uL (0.0-0.2) Sodium Level 145 mmol/L (136-145) Potassium Level 4.2 mmol/L (3.5-5.1) Chloride Level 110 mmol/L (98-107) Carbon Dioxide Level 28 mmol/L (21-32) Anion Gap 7 (6-14) Blood Urea Nitrogen 57 mg/dL (7-20) Creatinine 1.4 mg/dL (0.6-1.0) Estimated GFR (Cockcroft-Gault) 37.1 Glucose Level 219 mg/dL (70-99) Calcium Level 8.5 mg/dL (8.5-10.1) O2 Saturation 96 % (92-99) Arterial Blood pH 7.32 (7.35-7.45) Arterial Blood pCO2 at Patient Temp 50 mmHg (35-46) Arterial Blood pO2 at Patient Temp 85 mmHg (65-108) Arterial Blood HCO3 25 mmol/L (21-28) Arterial Blood Base Excess -2 mmol/L (-3-3) FiO2 45% bipap Microbiology 01/16/19 Blood Culture - Final, Complete NO GROWTH AFTER 5 DAYS 01/19/19 Anaerobic/Aerobic Culture - Final, Complete 01/19/19 Anaerobic Culture Result 1 (BASIA) - Final, Complete 01/19/19 Aerobic Culture - Final, Complete 01/19/19 Aerobic Culture Result 1 (BASIA) - Final, Complete 01/19/19 Gram Stain - Final, Complete 01/19/19 Gram Stain Result 1 (BASIA) - Final, Complete 01/19/19 Gram Stain Result 2 (BASIA) - Final, Complete 01/20/19 - Final, Complete 01/20/19 - Final, Complete 01/20/19 - Final, Complete 01/20/19 Gram Stain Evaluation - Final, Complete 01/20/19 Sputum Culture - Final, Complete 01/20/19 Sputum Result 1 - Final, Complete 01/19/19 AFB Specimen Processing Tissue - Final, Resulted 01/19/19 Acid Fast Bacilli Culture, Resulted Pending 01/19/19 Gram Stain - Final, Resulted 01/16/19 Urine Culture - Final, Complete 01/16/19 Urine Culture Result 1 (BASIA) - Final, Complete Medications Current Medications Propofol (Diprivan) 200 mg 1X ONCE IV ; Start 01/15/19 at 15:00; Stop 01/15/19 at 15:06; Status DC Midazolam HCl (Versed) 5 mg 1X ONCE IV Last administered on 01/15/19at 15:59; Start 01/15/19 at 15:00; Stop 01/15/19 at 15:01; Status DC Propofol 50 ml @ As Directed STK-MED ONCE IV ; Start 01/15/19 at 15:02; Stop 01/15/19 at 15:03; Status DC Midazolam HCl 100 ml @ 0 mls/hr 1X ONCE IV Last administered on 01/15/19at 15:19; Start 01/15/19 at 15:15; Stop 01/15/19 at 15:16; Status DC Calcium Gluconate (Calcium Gluconate) 1,000 mg 1X ONCE IVP Last administered on 01/15/19at 15:58; Start 01/15/19 at 15:30; Stop 01/15/19 at 15:31; Status DC Norepinephrine Bitartrate 250 ml @ 1.875 mls/ hr CONT PRN IV SEE I/O RECORD Last administered on 01/20/19at 04:15; Start 01/15/19 at 17:00; Stop 01/22/19 at 10:32; Status DC Piperacillin Sod/ Tazobactam Sod (Zosyn Per Pharmacy) 1 each PRN DAILY PRN MC SEE COMMENTS; Start 01/15/19 at 17:15; Stop 01/24/19 at 10:37; Status DC Albuterol Sulfate (Ventolin Neb Soln) 2.5 mg PRN Q4HRS PRN NEB SHORTNESS OF BREATH; Start 01/15/19 at 17:15 Midazolam HCl 100 ml @ 5 mls/hr CONT PRN IV SEE I/O RECORD Last administered on 01/19/19 05:03; Start 01/15/19 at 17:15; Stop 01/20/19 at 09:46; Status DC Fentanyl Citrate (Fentanyl 2ml Vial) 50 mcg PRN Q2HR PRN IV PAIN Last administered on 01/25/19 14:48; Start 01/15/19 at 17:15; Stop 01/27/19 at 10:14; Status DC Piperacillin Sod/ Tazobactam Sod 2.25 gm/Sodium Chloride 50 ml @ 100 mls/hr Q6HRS IV Last administered on 01/19/19 05:59; Start 01/15/19 at 18:00; Stop 01/19/19 at 11:25; Status DC Albuterol Sulfate (Ventolin Neb Soln) 2.5 mg RTBID NEB Last administered on 01/28/19at 07:30; Start 01/15/19 at 20:00 Amiodarone HCl (Cordarone) 200 mg DAILY PO Last administered on 01/28/19at 08:17; Start 01/16/19 at 09:00 Aspirin (Dieudonne Aspirin) 325 mg DAILY PO Last administered on 01/28/19 08:17; Start 01/16/19 at 09:00 Atorvastatin Calcium (Lipitor) 10 mg HS PO Last administered on 01/27/19 21:01; Start 01/15/19 at 21:00 Carvedilol (Coreg) 3.125 mg BIDWMEALS PO ; Start 01/15/19 at 18:30; Stop 01/18/19 at 14:39; Status DC Docusate Sodium (Colace) 100 mg PRN DAILY PRN PO hard stools; Start 01/15/19 at 17:15 Furosemide (Lasix) 40 mg BID94 PO ; Start 01/16/19 at 09:00; Stop 01/16/19 at 10:50; Status DC Mirtazapine (Remeron) 7.5 mg DAILY PO ; Start 01/16/19 at 09:00; Stop 01/16/19 at 09:00; Status DC Tramadol HCl (Ultram) 25 mg PRN Q6HRS PRN PO MODERATE PAIN Last administered on 01/23/19 20:14; Start 01/15/19 at 17:15; Stop 01/25/19 at 14:40; Status DC Acetaminophen (Tylenol) 650 mg PRN Q4HRS PRN PO FEVER Last administered on 01/15/19at 20:57; Start 01/15/19 at 17:15; Stop 01/16/19 at 08:07; Status DC Ascorbic Acid (Vitamin C) 500 mg DAILY PO Last administered on 01/28/19at 08:17; Start 01/16/19 at 09:00 Magnesium Hydroxide (Milk Of Magnesia) 2,400 mg PRN DAILY PRN PO CONSTIPATION; Start 01/15/19 at 18:45 Ondansetron HCl (Zofran Odt) 4 mg PRN Q6HRS PRN PO NAUSEA/VOMITING; Start 01/15/19 at 18:45 Pantoprazole Sodium (Protonix) 40 mg DAILYAC PO Last administered on 01/18/19at 07:52; Start 01/16/19 at 07:30; Stop 01/18/19 at 08:02; Status DC Quetiapine Fumarate (SEROquel) 12.5 mg PRN Q6HRS PRN PO AGITATION Last administered on 01/25/19at 08:29; Start 01/15/19 at 17:15; Stop 01/25/19 at 14:40; Status DC Quetiapine Fumarate (SEROquel) 25 mg QHS PO Last administered on 01/17/19at 21:08; Start 01/15/19 at 21:00; Stop 01/18/19 at 14:39; Status DC Thiamine Mononitrate (Vitamin B-1) 100 mg DAILY PO Last administered on 01/28/19at 08:17; Start 01/16/19 at 09:00 Vancomycin HCl (Vanco Per Pharmacy) 1 each PRN DAILY PRN MC SEE COMMENTS Last administered on 01/15/19at 21:10; Start 01/15/19 at 17:45; Stop 01/16/19 at 08:06; Status DC Piperacillin Sod/ Tazobactam Sod (Zosyn Per Pharmacy) 1 each PRN DAILY PRN MC SEE COMMENTS; Start 01/15/19 at 17:45; Status UNV Insulin Human Lispro (HumaLOG) 0-5 UNITS TIDWMEALS SQ ; Start 01/16/19 at 08:00; Stop 01/16/19 at 08:00; Status DC Dextrose (Dextrose 50%-Water Syringe) 12.5 gm PRN Q15MIN PRN IV SEE COMMENTS; Start 01/15/19 at 17:45 Vancomycin HCl 2 gm/Sodium Chloride 500 ml @ 250 mls/hr 1X ONCE IV Last administered on 01/15/19at 20:56; Start 01/15/19 at 20:00; Stop 01/15/19 at 21:59; Status DC Insulin Human Lispro (HumaLOG) 0-5 UNITS Q6HRS SQ Last administered on 01/28/19at 06:03; Start 01/16/19 at 00:00 Vancomycin HCl 1.25 gm/Sodium Chloride 250 ml @ 167 mls/hr Q24H IV ; Start 01/16/19 at 21:00; Stop 01/16/19 at 21:00; Status DC Vancomycin HCl (Vancomycin Trough Level) 1 each 1X ONCE MC ; Start 01/17/19 at 20:30; Stop 01/17/19 at 20:31; Status Cancel Mirtazapine (Remeron) 7.5 mg QHS PO Last administered on 01/25/19at 21:07; Start 01/16/19 at 21:00; Stop 01/26/19 at 16:44; Status DC Linezolid/Dextrose 300 ml @ 300 mls/hr Q12HR IV Last administered on 01/19/19at 21:52; Start 01/16/19 at 09:00; Stop 01/20/19 at 08:26; Status DC Acetaminophen (Tylenol) 650 mg PRN Q4HRS PRN PEG MILD PAIN / TEMP Last administered on 01/27/19at 17:11; Start 01/16/19 at 08:15 Famotidine (Pepcid) 20 mg QHS PO Last administered on 01/17/19at 21:08; Start 01/16/19 at 21:00; Stop 01/18/19 at 13:06; Status DC Heparin Sodium (Porcine) (Heparin Sodium) 5,000 unit Q12HR SQ Last administered on 01/18/19at 13:18; Start 01/16/19 at 21:00; Stop 01/19/19 at 20:15; Status DC Sodium Chloride 500 ml @ 250 mls/hr Q1HR PRN IV HYPOTENTION; Start 01/17/19 at 19:15 Pantoprazole Sodium (PROTONIX VIAL for IV PUSH) 40 mg DAILYAC IVP Last administered on 01/22/19 08:33; Start 01/19/19 at 07:30; Stop 01/22/19 at 11:39; Status DC Piperacillin Sod/ Tazobactam Sod 3.375 gm/Sodium Chloride 50 ml @ 100 mls/hr Q6HRS IV Last administered on 01/24/19at 05:57; Start 01/19/19 at 12:00; Stop 01/24/19 at 08:40; Status DC Magnesium Sulfate 50 ml @ 25 mls/hr 1X ONCE IV Last administered on 01/19/19at 15:04; Start 01/19/19 at 12:30; Stop 01/19/19 at 14:29; Status DC Dobutamine HCl/ Dextrose 250 ml @ 6.302 mls/ hr CONT PRN IV SEE I/O RECORD Last administered on 01/21/19 07:23; Start 01/19/19 at 16:00; Stop 01/24/19 at 19 :57; Status DC Heparin Sodium (Porcine) (Heparin Sodium) 5,000 unit Q12HR SQ Last administered on 01/28/19 08:18; Start 01/20/19 at 01:45 Multivitamins (Thera-Plus Oral Liquid) 5 ml DAILY PEG Last administered on 01/28/19 08:18; Start 01/21/19 at 09:00 Potassium Chloride (KCl Oral Soln) 40 meq 1X ONCE PO Last administered on 01/21/19at 11:56; Start 01/21/19 at 11:00; Stop 01/21/19 at 11:01; Status DC Lansoprazole (Prevacid) 30 mg DAILY NG Last administered on 01/28/19at 08:17; Start 01/23/19 at 09:00 Potassium Chloride/Water 50 ml @ 50 mls/hr 1X ONCE IV Last administered on 01/23/19at 10:11; Start 01/23/19 at 10:00; Stop 01/23/19 at 10:59; Status DC Potassium Chloride (KCl Oral Soln) 20 meq 1X ONCE NG ; Start 01/23/19 at 10:15; Stop 01/23/19 at 10:16; Status DC Amoxicillin/ Clavulanate Potassium (Augmentin 875/ 125mg) 1 tab BID PO Last administered on 01/27/19at 09:49; Start 01/24/19 at 09:00; Stop 01/27/19 at 10:40; Status DC Furosemide (Lasix) 20 mg DAILY IVP ; Start 01/24/19 at 11:00; Stop 01/24/19 at 11:00; Status DC Furosemide (Lasix) 20 mg DAILY NG Last administered on 01/27/19at 09:50; Start 01/24/19 at 11:00; Stop 01/27/19 at 10:14; Status DC Potassium Chloride (KCl Oral Soln) 20 meq DAILY NG Last administered on 01/27/19at 09:50; Start 01/24/19 at 12:00; Stop 01/27/19 at 10:14; Status DC Barium Sulfate (Varibar Thin Liquid Apple) 148 gm 1X ONCE PO Last administered on 01/25/19at 13:15; Start 01/25/19 at 13:15; Stop 01/25/19 at 13:16; Status DC Haloperidol Lactate (Haldol Inj) 5 mg 1X ONCE IVP Last administered on 01/26/19at 07:33; Start 01/26/19 at 07:00; Stop 01/26/19 at 07:01; Status DC Haloperidol Lactate (Haldol Inj) 5 mg Q8HRS IVP Last administered on 01/26/19at 22:51; Start 01/26/19 at 14:00; Stop 01/27/19 at 10:14; Status DC Haloperidol Lactate (Haldol Inj) 5 mg 1X PRN PRN IVP AGITATION; Start 01/26/19 at 07:30; Stop 01/26/19 at 12:00; Status DC Diphenhydramine HCl (Benadryl) 25 mg PRN Q6HRS PRN IVP ITCHING; Start 01/26/19 at 16:45; Stop 01/27/19 at 10:14; Status DC Haloperidol Lactate (Haldol Inj) 5 mg PRN Q8HRS PRN IVP AGITATION Last administered on 01/27/19at 14:27; Start 01/27/19 at 10:15 Piperacillin Sod/ Tazobactam Sod 3.375 gm/Sodium Chloride 50 ml @ 100 mls/hr Q6HRS IV Last administered on 01/28/19at 05:57; Start 01/27/19 at 12:00 Linezolid/Dextrose 300 ml @ 300 mls/hr Q12HR IV Last administered on 01/28/19at 08:18; Start 01/27/19 at 12:00 Dexmedetomidine HCl 200 mcg/ Sodium Chloride 50 ml @ 0 mls/hr CONT PRN IV PER PROTOCOL Last administered on 01/28/19at 08:01; Start 01/27/19 at 15:15 Norepinephrine Bitartrate 250 ml @ 1.875 mls/ hr CONT PRN IV SEE I/O RECORD Last administered on 01/27/19at 16:38; Start 01/27/19 at 16:30 Sodium Chloride 1,000 ml @ 40 mls/hr Q24H IV Last administered on 01/27/19at 20:09; Start 01/27/19 at 20:15 Active Scripts Active [Multivitamins,Therapeutic Liq] 5 ML Liquid 5 Ml PEG DAILY Heparin Sodium (Heparin Sodium,Porcine) 5,000 Unit/1 Ml Vial 5,000 Unit SQ Q12HR Zosyn 2.25 Gram Vial (Piperacillin Sodium/Tazobactam) 2.25 Gm Vial 1 Each MC PRN DAILY PRN 10 Days ID doctor to decide on duration of iv zosyn Reported Vitamin C (Ascorbate Calcium) 500 Mg Tablet 500 Mg PO DAILY Aspirin 325 Mg Tablet 1 Tab PO DAILY Zofran (Ondansetron Hcl) 4 Mg Tablet 4 Mg PO PRN Q6HRS PRN B-1 (Thiamine HCl) 100 Mg Tablet 100 Mg PO DAILY Acetaminophen 160 Mg/5 Ml Oral.susp 650 Mg PO PRN Q4HRS PRN Mirtazapine 7.5 Mg Tablet 7.5 Mg PO QHS Albuterol Sulfate Neb Soln (Albuterol Sulfate) 2.5 Mg/3 Ml Vial.neb 2.5 Mg NEB BID Atorvastatin Calcium 10 Mg Tablet 10 Mg PO HS Protonix (Pantoprazole Sodium) 20 Mg Tablet.dr 40 Mg PO DAILY Amiodarone Hcl 200 Mg Tablet 1 Tab PO DAILY Seroquel (Quetiapine Fumarate) 25 Mg Tablet 25 Mg PO HS Tramadol Hcl 50 Mg Tablet 25 Mg PO Q6HRS PRN Seroquel (Quetiapine Fumarate) 25 Mg Tablet 12.5 Mg PO PRN Q6HRS PRN Vitals/I & O Vital Sign - Last 24 Hours 5/10/19 5/10/19 5/10/19 5/10/19 12:00 12:15 12:33 13:00 Pulse 104 108 108 Resp 29 25 35 B/P (MAP) 95/52 (66) 104/57 (73) 91/72 (78) 110/53 (72) Pulse Ox 93 94 91 O2 Delivery BiPAP/CPAP BiPAP/CPAP BiPAP/CPAP 01/27/19 01/27/19 01/27/19 01/27/19 14:20 15:00 16:00 16:00 Pulse 102 103 86 Resp 25 30 21 B/P (MAP) 102/60 (74) 83/52 (62) 82/47 (59) Pulse Ox 100 100 100 O2 Delivery BiPAP/CPAP BiPAP/CPAP BiPAP/CPAP Nasal Cannula 01/27/19 01/27/19 01/27/19 01/27/19 16:08 16:15 16:37 16:45 B/P (MAP) 77/39 (52) 68/42 (51) 85/50 (62) Pulse Ox 100 O2 Delivery BiPAP/CPAP 01/27/19 01/27/19 01/27/19 01/27/19 17:00 17:15 18:00 19:00 Temp 102.5 102.5 Pulse 82 80 81 Resp 19 19 23 B/P (MAP) 92/48 (63) 103/50 (67) 92/51 (65) 97/50 (66) Pulse Ox 100 96 98 O2 Delivery BiPAP/CPAP BiPAP/CPAP BiPAP/CPAP 01/27/19 01/27/19 01/27/19 01/27/19 19:15 20:00 20:00 20:17 Temp 99.4 99.4 Pulse 79 77 Resp 19 B/P (MAP) 99/50 (66) 110/58 (75) Pulse Ox 99 100 O2 Delivery Bi-pap BiPAP/CPAP BiPAP/CPAP 01/27/19 01/27/19 01/27/19 01/27/19 21:00 22:00 23:00 23:55 Pulse 75 75 74 Resp 20 18 22 B/P (MAP) 108/53 (71) 115/65 (82) 107/53 (71) Pulse Ox 100 100 100 100 O2 Delivery BiPAP/CPAP BiPAP/CPAP BiPAP/CPAP BiPAP/CPAP 01/28/19 01/28/19 01/28/19 01/28/19 00:00 00:00 00:30 00:45 Temp 98.5 98.5 Pulse 71 70 68 Resp 17 B/P (MAP) 113/66 (82) 110/58 (75) 102/52 (69) Pulse Ox 100 O2 Delivery Bi-pap BiPAP/CPAP 01/28/19 01/28/19 01/28/19 01/28/19 01:00 01:51 02:00 03:00 Pulse 74 68 65 Resp 20 20 17 B/P (MAP) 115/63 (80) 108/56 (73) 105/54 (71) Pulse Ox 92 100 96 100 O2 Delivery BiPAP/CPAP BiPAP/CPAP BiPAP/CPAP BiPAP/CPAP 01/28/19 01/28/19 01/28/19 01/28/19 03:15 03:22 04:00 04:00 Temp 98.4 98.4 Pulse 70 68 Resp 22 B/P (MAP) 102/55 (71) 105/55 (72) Pulse Ox 100 100 O2 Delivery BiPAP/CPAP Bi-pap BiPAP/CPAP 01/28/19 01/28/19 01/28/19 01/28/19 05:00 05:14 06:00 07:00 Pulse 60 72 76 Resp 21 28 23 B/P (MAP) 95/49 (64) 92/48 (63) 103/53 (70) Pulse Ox 100 100 100 94 O2 Delivery BiPAP/CPAP BiPAP/CPAP BiPAP/CPAP BiPAP/CPAP 01/28/19 01/28/19 01/28/19 01/28/19 08:00 08:00 08:17 08:27 Temp 98.1 98.1 Pulse 70 70 Resp 24 B/P (MAP) 104/52 (69) 104/52 Pulse Ox 98 98 O2 Delivery BiPAP/CPAP Bi-pap BiPAP/CPAP 01/28/19 01/28/19 09:00 10:00 Pulse 75 76 Resp 19 18 B/P (MAP) 107/65 (79) 105/62 (76) Pulse Ox 99 99 O2 Delivery BiPAP/CPAP BiPAP/CPAP Intake and Output 01/27/19 01/27/19 01/28/19 15:00 23:00 07:00 Intake Total 590 ml 679.4 ml 1823 ml Output Total 215 ml 255 ml 222 ml Balance 375 ml 424.4 ml 1601 ml CHRISTINA CHAVARRIA MD January 28, 2019 10:27
--- NOTE | 2019-01-28 11:36 | PDOC ---
Provider Note Provider Note Chart reviewed. Currently on 6mcg Levophed. Will plan tracheostomy on Wednesday, given hemodynamic stability. Full consult to follow. LG CLARKE MD January 28, 2019 11:36
--- NOTE | 2019-01-28 12:28 | PDOC ---
PULMONARY PROGRESS NOTES Subjective EXTUBATED 01/20 PT TRANSFER BACK TO ICU FOR HYPOXEMIA AND DELIRIUM FEVER 01/27 Vitals Vital Signs Date Time Temp Pulse Resp B/P (MAP) Pulse Ox O2 Delivery O2 Flow Rate FiO2 01/28/19 11:00 69 18 117/67 (84) 98 BiPAP/CPAP 01/28/19 08:00 98.1 98.1 01/27/19 08:18 3.0 General: Confused Lungs: Clear Cardiovascular: S1, S2 Abdomen: Soft, Non-tender Extremities: Other (EDEMA) Skin: Warm Labs Laboratory Tests Test 01/26/19 18:24 01/27/19 05:00 01/27/19 11:16 01/27/19 13:10 Glucose (Fingerstick) 161 mg/dL (70-99) 162 mg/dL (70-99) White Blood Count 12.6 x10^3/uL (4.0-11.0) Red Blood Count 3.35 x10^6/uL (3.50-5.40) Hemoglobin 10.0 g/dL (12.0-15.5) Hematocrit 31.6 % (36.0-47.0) Mean Corpuscular Volume 94 fL (79-100) Mean Corpuscular Hemoglobin 30 pg (25-35) Mean Corpuscular Hemoglobin Concent 32 g/dL (31-37) Red Cell Distribution Width 19.4 % (11.5-14.5) Platelet Count 265 x10^3/uL (140-400) Neutrophils (%) (Auto) 86 % (31-73) Lymphocytes (%) (Auto) 7 % (24-48) Monocytes (%) (Auto) 6 % (0-9) Eosinophils (%) (Auto) 0 % (0-3) Basophils (%) (Auto) 1 % (0-3) Neutrophils # (Auto) 10.8 x10^3uL (1.8-7.7) Lymphocytes # (Auto) 0.9 x10^3/uL (1.0-4.8) Monocytes # (Auto) 0.8 x10^3/uL (0.0-1.1) Eosinophils # (Auto) 0.0 x10^3/uL (0.0-0.7) Basophils # (Auto) 0.1 x10^3/uL (0.0-0.2) Segmented Neutrophils % 78 % (35-66) Band Neutrophils % 11 % (0-9) Lymphocytes % 6 % (24-48) Monocytes % 5 % (0-10) Platelet Estimate Adequate (ADEQUATE) Polychromasia Slight Anisocytosis Slight Sodium Level 146 mmol/L (136-145) Potassium Level 4.0 mmol/L (3.5-5.1) Chloride Level 110 mmol/L (98-107) Carbon Dioxide Level 29 mmol/L (21-32) Anion Gap 7 (6-14) Blood Urea Nitrogen 55 mg/dL (7-20) Creatinine 1.2 mg/dL (0.6-1.0) Estimated GFR (Cockcroft-Gault) 44.3 Glucose Level 134 mg/dL (70-99) Calcium Level 9.0 mg/dL (8.5-10.1) Urine Collection Type Unknown Urine Color Yellow Urine Clarity Turbid Urine pH 5.0 Urine Specific [place] 1.020 Urine Protein 30 mg/dL (NEG-TRACE) Urine Glucose (UA) Negative mg/dL (NEG) Urine Ketones (Stick) Negative mg/dL (NEG) Urine Blood Large (NEG) Urine Nitrite Negative (NEG) Urine Bilirubin Negative (NEG) Urine Urobilinogen Dipstick 0.2 mg/dL (0.2 mg/dL) Urine Leukocyte Esterase Large (NEG) Urine RBC 11-20 /HPF (0-2) Urine WBC Tntc /HPF (0-4) Urine Bacteria Moderate /HPF (0-FEW) Urine Yeast Present /HPF Test 01/27/19 14:10 01/27/19 17:52 01/28/19 00:11 01/28/19 04:45 O2 Saturation 86 % (92-99) Arterial Blood pH 7.36 (7.35-7.45) Arterial Blood pCO2 at Patient Temp 49 mmHg (35-46) Arterial Blood pO2 at Patient Temp 52 mmHg (65-108) Arterial Blood HCO3 27 mmol/L (21-28) Arterial Blood Base Excess 1 mmol/L (-3-3) FiO2 40 Glucose (Fingerstick) 122 mg/dL (70-99) 240 mg/dL (70-99) White Blood Count 13.1 x10^3/uL (4.0-11.0) Red Blood Count 3.33 x10^6/uL (3.50-5.40) Hemoglobin 9.8 g/dL (12.0-15.5) Hematocrit 32.1 % (36.0-47.0) Mean Corpuscular Volume 97 fL (79-100) Mean Corpuscular Hemoglobin 30 pg (25-35) Mean Corpuscular Hemoglobin Concent 31 g/dL (31-37) Red Cell Distribution Width 20.3 % (11.5-14.5) Platelet Count 342 x10^3/uL (140-400) Neutrophils (%) (Auto) 85 % (31-73) Lymphocytes (%) (Auto) 7 % (24-48) Monocytes (%) (Auto) 6 % (0-9) Eosinophils (%) (Auto) 2 % (0-3) Basophils (%) (Auto) 1 % (0-3) Neutrophils # (Auto) 11.2 x10^3uL (1.8-7.7) Lymphocytes # (Auto) 0.9 x10^3/uL (1.0-4.8) Monocytes # (Auto) 0.7 x10^3/uL (0.0-1.1) Eosinophils # (Auto) 0.2 x10^3/uL (0.0-0.7) Basophils # (Auto) 0.1 x10^3/uL (0.0-0.2) Sodium Level 145 mmol/L (136-145) Potassium Level 4.2 mmol/L (3.5-5.1) Chloride Level 110 mmol/L (98-107) Carbon Dioxide Level 28 mmol/L (21-32) Anion Gap 7 (6-14) Blood Urea Nitrogen 57 mg/dL (7-20) Creatinine 1.4 mg/dL (0.6-1.0) Estimated GFR (Cockcroft-Gault) 37.1 Glucose Level 219 mg/dL (70-99) Calcium Level 8.5 mg/dL (8.5-10.1) Test 01/28/19 05:55 01/28/19 08:00 Glucose (Fingerstick) 206 mg/dL (70-99) O2 Saturation 96 % (92-99) Arterial Blood pH 7.32 (7.35-7.45) Arterial Blood pCO2 at Patient Temp 50 mmHg (35-46) Arterial Blood pO2 at Patient Temp 85 mmHg (65-108) Arterial Blood HCO3 25 mmol/L (21-28) Arterial Blood Base Excess -2 mmol/L (-3-3) FiO2 45% bipap Laboratory Tests Test 01/27/19 13:10 01/27/19 14:10 01/27/19 17:52 01/28/19 00:11 Urine Collection Type Unknown Urine Color Yellow Urine Clarity Turbid Urine pH 5.0 Urine Specific [place] 1.020 Urine Protein 30 mg/dL (NEG-TRACE) Urine Glucose (UA) Negative mg/dL (NEG) Urine Ketones (Stick) Negative mg/dL (NEG) Urine Blood Large (NEG) Urine Nitrite Negative (NEG) Urine Bilirubin Negative (NEG) Urine Urobilinogen Dipstick 0.2 mg/dL (0.2 mg/dL) Urine Leukocyte Esterase Large (NEG) Urine RBC 11-20 /HPF (0-2) Urine WBC Tntc /HPF (0-4) Urine Bacteria Moderate /HPF (0-FEW) Urine Yeast Present /HPF O2 Saturation 86 % (92-99) Arterial Blood pH 7.36 (7.35-7.45) Arterial Blood pCO2 at Patient Temp 49 mmHg (35-46) Arterial Blood pO2 at Patient Temp 52 mmHg (65-108) Arterial Blood HCO3 27 mmol/L (21-28) Arterial Blood Base Excess 1 mmol/L (-3-3) FiO2 40 Glucose (Fingerstick) 122 mg/dL (70-99) 240 mg/dL (70-99) Test 01/28/19 04:45 01/28/19 05:55 01/28/19 08:00 White Blood Count 13.1 x10^3/uL (4.0-11.0) Red Blood Count 3.33 x10^6/uL (3.50-5.40) Hemoglobin 9.8 g/dL (12.0-15.5) Hematocrit 32.1 % (36.0-47.0) Mean Corpuscular Volume 97 fL (79-100) Mean Corpuscular Hemoglobin 30 pg (25-35) Mean Corpuscular Hemoglobin Concent 31 g/dL (31-37) Red Cell Distribution Width 20.3 % (11.5-14.5) Platelet Count 342 x10^3/uL (140-400) Neutrophils (%) (Auto) 85 % (31-73) Lymphocytes (%) (Auto) 7 % (24-48) Monocytes (%) (Auto) 6 % (0-9) Eosinophils (%) (Auto) 2 % (0-3) Basophils (%) (Auto) 1 % (0-3) Neutrophils # (Auto) 11.2 x10^3uL (1.8-7.7) Lymphocytes # (Auto) 0.9 x10^3/uL (1.0-4.8) Monocytes # (Auto) 0.7 x10^3/uL (0.0-1.1) Eosinophils # (Auto) 0.2 x10^3/uL (0.0-0.7) Basophils # (Auto) 0.1 x10^3/uL (0.0-0.2) Sodium Level 145 mmol/L (136-145) Potassium Level 4.2 mmol/L (3.5-5.1) Chloride Level 110 mmol/L (98-107) Carbon Dioxide Level 28 mmol/L (21-32) Anion Gap 7 (6-14) Blood Urea Nitrogen 57 mg/dL (7-20) Creatinine 1.4 mg/dL (0.6-1.0) Estimated GFR (Cockcroft-Gault) 37.1 Glucose Level 219 mg/dL (70-99) Calcium Level 8.5 mg/dL (8.5-10.1) Glucose (Fingerstick) 206 mg/dL (70-99) O2 Saturation 96 % (92-99) Arterial Blood pH 7.32 (7.35-7.45) Arterial Blood pCO2 at Patient Temp 50 mmHg (35-46) Arterial Blood pO2 at Patient Temp 85 mmHg (65-108) Arterial Blood HCO3 25 mmol/L (21-28) Arterial Blood Base Excess -2 mmol/L (-3-3) FiO2 45% bipap Medications Active Scripts Medications Dose Route/Sig Max Daily Dose Days Date Category Vitamin C (Ascorbate Calcium) 500 Mg Tablet 500 Mg PO DAILY 01/15/19 Reported Aspirin 325 Mg Tablet 1 Tab PO DAILY 01/15/19 Reported Coreg (Carvedilol) 3.125 Mg Tablet 3.125 Mg PO BIDWMEALS 01/15/19 Reported Zofran (Ondansetron Hcl) 4 Mg Tablet 4 Mg PO PRN Q6HRS PRN 4/28/19 Reported B-1 (Thiamine HCl) 100 Mg Tablet 100 Mg PO DAILY 01/15/19 Reported Docusate Sodium 100 Mg Capsule 100 Mg PO PRN PRN 01/15/19 Reported Acetaminophen 160 Mg/5 Ml Oral.susp 650 Mg PO PRN Q4HRS PRN 01/15/19 Reported Milk Of Magnesia (Magnesium Hydroxide) 2,400 Mg/10 Ml Oral.susp 2,400 Mg PO PRN PRN 01/15/19 Reported Mirtazapine 7.5 Mg Tablet 7.5 Mg PO QHS 01/15/19 Reported Albuterol Sulfate Neb Soln (Albuterol Sulfate) 2.5 Mg/3 Ml Vial.neb 2.5 Mg NEB BID 01/15/19 Reported Atorvastatin Calcium 10 Mg Tablet 10 Mg PO HS 01/15/19 Reported Lasix (Furosemide) 40 Mg Tablet 40 Mg PO BID 01/15/19 Reported Protonix (Pantoprazole Sodium) 20 Mg Tablet.dr 40 Mg PO DAILY 01/15/19 Reported Amiodarone Hcl 200 Mg Tablet 1 Tab PO DAILY 01/15/19 Reported Seroquel (Quetiapine Fumarate) 25 Mg Tablet 25 Mg PO HS 01/15/19 Reported Tramadol Hcl 50 Mg Tablet 25 Mg PO Q6HRS PRN 01/15/19 Reported Seroquel (Quetiapine Fumarate) 25 Mg Tablet 12.5 Mg PO PRN Q6HRS PRN 01/15/19 Reported Comments CXR 01/22 IMPROVED LEFT EFFUSION/ MILD CHF, NO CHANGE Impression . IMPRESSION: 1. Acute respiratory failure, status post cardiopulmonary arrest, the patient transferred from [facility]. extubated, on [place] 2. Acute on chronic systolic heart failure. EF 40% 3. Abnormal x-ray compatible with bilateral airspace disease in the lower lobes, pneumonia./ CHF, left effusion, s/p left tap 01/19 4. Type 2 diabetes. 5. Severe protein malnutrition. 6. Thrombocytopenia. 7. History of pacemaker implantation. 8. Prior history of gastric ulcers. 9. ABNORMAL CXR 10 METABOLIC ENCE POA 11 DYSPHAGIA 12 DIARRHEA 13 HYPERCAPNIA 14.DELIRIUM 15 FEVER Plan . BIAPAP ON STARTED PRECEDEX FOR NOW OK SHE MAY NEED TO BE RE INTUBATED ABG NOTED 02 NC ANTIBX PROCALCITONIN PRESSORS D/W FAMILY AT BEDSIDE THEY WISH TO PROCEED WITH TRACH THEY ARE AWARE THAT SHE MAY END UP IN SNU WITH TRACH AND VENT FOR THE REST OF HER LIFE FOLLOW CXR CONSULT SURGEON D/W CARD COMPLEX DECISION MAKING CCT 35 MINUTES D/W TEAM GISELLA MCNEAL MD January 28, 2019 12:28
--- NOTE | 2019-01-28 16:25 | PDOC2 ---
CONSULT Date of Consult Date of Consult DATE: 01/28/19 TIME: 16:14 Reason for Consult Reason for Consult: Malnutrition, dysphagia, assessment for PEG placement History of Present Illness Reason for Visit: This is a 73-year-old female who was transferred to [facility] after an acute myocardial infarction at [facility] 1 week ago. Initially she was intubated in the ICU but eventually was extubated. However she had decompensation and respiratory failure requiring a transfer back to the ICU. She is presently on BIPAP, with sedation and has an NG tube in place and is tolerating enteral nutrition. She has a fever and infiltrate suggestive of pneumonia. She is on low dose of pressors and in reviewing the chart the family wishes to proceed with aggressive management. It is planned to place a tracheostomy this week and we were asked to see regarding percutaneous gastrostomy tube placement. There is no family members present at this time. The chart was reviewed and multiple physician notes were reviewed as well. Past Medical History Cardiovascular: AFIB (paroxysmal ), CHF (NICM), HTN, Hyperlipidemia, Other (cardiopulmonary arrest) GI: GI bleed, Peptic Ulcer disease Renal/: Chronic renal insuff, Acute renal failure Endocrine: Diabetes Past Surgical History Past Surgical History: Pacemaker ([employer]tr[employer] ), Tubal Ligation Family History Family History: Diabetes Social History No ALCOHOL: none Drugs: None Current Problem List Problem List Problems Medical Problems: (1) Cardiac arrest Status: Acute (2) HCAP (healthcare-associated pneumonia) Status: Acute (3) Liver failure Status: Acute Current Medications Current Medications Current Medications Propofol (Diprivan) 200 mg 1X ONCE IV ; Start 01/15/19 at 15:00; Stop 01/15/19 at 15:06; Status DC Midazolam HCl (Versed) 5 mg 1X ONCE IV Last administered on 01/15/19at 15:59; Start 01/15/19 at 15:00; Stop 01/15/19 at 15:01; Status DC Propofol 50 ml @ As Directed STK-MED ONCE IV ; Start 01/15/19 at 15:02; Stop 01/15/19 at 15:03; Status DC Midazolam HCl 100 ml @ 0 mls/hr 1X ONCE IV Last administered on 01/15/19at 15:19; Start 01/15/19 at 15:15; Stop 01/15/19 at 15:16; Status DC Calcium Gluconate (Calcium Gluconate) 1,000 mg 1X ONCE IVP Last administered on 01/15/19at 15:58; Start 01/15/19 at 15:30; Stop 01/15/19 at 15:31; Status DC Norepinephrine Bitartrate 250 ml @ 1.875 mls/ hr CONT PRN IV SEE I/O RECORD Last administered on 01/20/19at 04:15; Start 01/15/19 at 17:00; Stop 01/22/19 at 10:32; Status DC Piperacillin Sod/ Tazobactam Sod (Zosyn Per Pharmacy) 1 each PRN DAILY PRN MC SEE COMMENTS; Start 01/15/19 at 17:15; Stop 01/24/19 at 10:37; Status DC Albuterol Sulfate (Ventolin Neb Soln) 2.5 mg PRN Q4HRS PRN NEB SHORTNESS OF BREATH; Start 01/15/19 at 17:15 Midazolam HCl 100 ml @ 5 mls/hr CONT PRN IV SEE I/O RECORD Last administered on 01/19/19at 05:03; Start 01/15/19 at 17:15; Stop 01/20/19 at 09:46; Status DC Fentanyl Citrate (Fentanyl 2ml Vial) 50 mcg PRN Q2HR PRN IV PAIN Last a dministered on 01/25/19at 14:48; Start 01/15/19 at 17:15; Stop 01/27/19 at 10:14; Status DC Piperacillin Sod/ Tazobactam Sod 2.25 gm/Sodium Chloride 50 ml @ 100 mls/hr Q6HRS IV Last administered on 01/19/19at 05:59; Start 01/15/19 at 18:00; Stop 01/19/19 at 11:25; Status DC Albuterol Sulfate (Ventolin Neb Soln) 2.5 mg RTBID NEB Last administered on 01/28/19at 07:30; Start 01/15/19 at 20:00 Amiodarone HCl (Cordarone) 200 mg DAILY PO Last administered on 01/28/19at 08:17; Start 01/16/19 at 09:00 Aspirin (Dieudonne Aspirin) 325 mg DAILY PO Last administered on 01/28/19at 08:17; Start 01/16/19 at 09:00 Atorvastatin Calcium (Lipitor) 10 mg HS PO Last administered on 01/27/19at 21:01; Start 01/15/19 at 21:00 Carvedilol (Coreg) 3.125 mg BIDWMEALS PO ; Start 01/15/19 at 18:30; Stop 01/18/19 at 14:39; Status DC Docusate Sodium (Colace) 100 mg PRN DAILY PRN PO hard stools; Start 01/15/19 at 17:15 Furosemide (Lasix) 40 mg BID94 PO ; Start 01/16/19 at 09:00; Stop 01/16/19 at 10:50; Status DC Mirtazapine (Remeron) 7.5 mg DAILY PO ; Start 01/16/19 at 09:00; Stop 01/16/19 at 09:00; Status DC Tramadol HCl (Ultram) 25 mg PRN Q6HRS PRN PO MODERATE PAIN Last administered on 01/23/19at 20:14; Start 01/15/19 at 17:15; Stop 01/25/19 at 14:40; Status DC Acetaminophen (Tylenol) 650 mg PRN Q4HRS PRN PO FEVER Last administered on 01/15/19at 20:57; Start 01/15/19 at 17:15; Stop 01/16/19 at 08:07; Status DC Ascorbic Acid (Vitamin C) 500 mg DAILY PO Last administered on 01/28/19at 08:17; Start 01/16/19 at 09:00 Magnesium Hydroxide (Milk Of Magnesia) 2,400 mg PRN DAILY PRN PO CONSTIPATION; Start 01/15/19 at 18:45 Ondansetron HCl (Zofran Odt) 4 mg PRN Q6HRS PRN PO NAUSEA/VOMITING; Start 01/15/19 at 18:45 Pantoprazole Sodium (Protonix) 40 mg DAILYAC PO Last administered on 01/18/19at 07:52; Start 01/16/19 at 07:30; Stop 01/18/19 at 08:02; Status DC Quetiapine Fumarate (SEROquel) 12.5 mg PRN Q6HRS PRN PO AGITATION Last administered on 01/25/19at 08:29; Start 01/15/19 at 17:15; Stop 01/25/19 at 14:40; Status DC Quetiapine Fumarate (SEROquel) 25 mg QHS PO Last administered on 01/17/19at 21:08; Start 01/15/19 at 21:00; Stop 01/18/19 at 14:39; Status DC Thiamine Mononitrate (Vitamin B-1) 100 mg DAILY PO Last administered on 01/28/19at 08:17; Start 01/16/19 at 09:00 Vancomycin HCl (Vanco Per Pharmacy) 1 each PRN DAILY PRN MC SEE COMMENTS Last administered on 01/15/19at 21:10; Start 01/15/19 at 17:45; Stop 01/16/19 at 08:06; Status DC Piperacillin Sod/ Tazobactam Sod (Zosyn Per Pharmacy) 1 each PRN DAILY PRN MC SEE COMMENTS; Start 01/15/19 at 17:45; Status UNV Insulin Human Lispro (HumaLOG) 0-5 UNITS TIDWMEALS SQ ; Start 01/16/19 at 08:00; Stop 01/16/19 at 08:00; Status DC Dextrose (Dextrose 50%-Water Syringe) 12.5 gm PRN Q15MIN PRN IV SEE COMMENTS; Start 01/15/19 at 17:45 Vancomycin HCl 2 gm/Sodium Chloride 500 ml @ 250 mls/hr 1X ONCE IV Last administered on 01/15/19at 20:56; Start 01/15/19 at 20:00; Stop 01/15/19 at 21:59; Status DC Insulin Human Lispro (HumaLOG) 0-5 UNITS Q6HRS SQ Last administered on 01/28/19at 12:43; Start 01/16/19 at 00:00 Vancomycin HCl 1.25 gm/Sodium Chloride 250 ml @ 167 mls/hr Q24H IV ; Start 01/16/19 at 21:00; Stop 01/16/19 at 21:00; Status DC Vancomycin HCl (Vancomycin Trough Level) 1 each 1X ONCE MC ; Start 01/17/19 at 20:30; Stop 01/17/19 at 20:31; Status Cancel Mirtazapine (Remeron) 7.5 mg QHS PO Last administered on 01/25/19at 21:07; Start 01/16/19 at 21:00; Stop 01/26/19 at 16:44; Status DC Linezolid/Dextrose 300 ml @ 300 mls/hr Q12HR IV Last administered on 01/19/19 21:52; Start 01/16/19 at 09:00; Stop 01/20/19 at 08:26; Status DC Acetaminophen (Tylenol) 650 mg PRN Q4HRS PRN PEG MILD PAIN / TEMP Last administered on 01/27/19 17:11; Start 01/16/19 at 08:15 Famotidine (Pepcid) 20 mg QHS PO Last administered on 01/17/19 21:08; Start 01/16/19 at 21:00; Stop 01/18/19 at 13:06; Status DC Heparin Sodium (Porcine) (Heparin Sodium) 5,000 unit Q12HR SQ Last administered on 01/18/19 13:18; Start 01/16/19 at 21:00; Stop 01/19/19 at 20:15; Status DC Sodium Chloride 500 ml @ 250 mls/hr Q1HR PRN IV HYPOTENTION; Start 01/17/19 at 19:15 Pantoprazole Sodium (PROTONIX VIAL for IV PUSH) 40 mg DAILYAC IVP Last administered on 01/22/19 08:33; Start 01/19/19 at 07:30; Stop 01/22/19 at 11:39; Status DC Piperacillin Sod/ Tazobactam Sod 3.375 gm/Sodium Chloride 50 ml @ 100 mls/hr Q6 HRS IV Last administered on 01/24/19 05:57; Start 01/19/19 at 12:00; Stop 01/24/19 at 08:40; Status DC Magnesium Sulfate 50 ml @ 25 mls/hr 1X ONCE IV Last administered on 01/19/19 15:04; Start 01/19/19 at 12:30; Stop 01/19/19 at 14:29; Status DC Dobutamine HCl/ Dextrose 250 ml @ 6.302 mls/ hr CONT PRN IV SEE I/O RECORD Last administered on 01/21/19 07:23; Start 01/19/19 at 16:00; Stop 01/24/19 at 19:57; Status DC Heparin Sodium (Porcine) (Heparin Sodium) 5,000 unit Q12HR SQ Last administered on 01/28/19 08:18; Start 01/20/19 at 01:45 Multivitamins (Thera-Plus Oral Liquid) 5 ml DAILY PEG Last administered on 01/28/19 08:18; Start 01/21/19 at 09:00 Potassium Chloride (KCl Oral Soln) 40 meq 1X ONCE PO Last administered on 01/21/19 11:56; Start 01/21/19 at 11:00; Stop 01/21/19 at 11:01; Status DC Lansoprazole (Prevacid) 30 mg DAILY NG Last administered on 01/28/19 08:17; Start 01/23/19 at 09:00 Potassium Chloride/Water 50 ml @ 50 mls/hr 1X ONCE IV Last administered on 01/23/19 10:11; Start 01/23/19 at 10:00; Stop 01/23/19 at 10:59; Status DC Potassium Chloride (KCl Oral Soln) 20 meq 1X ONCE NG ; Start 01/23/19 at 10:15; Stop 01/23/19 at 10:16; Status DC Amoxicillin/ Clavulanate Potassium (Augmentin 875/ 125mg) 1 tab BID PO Last administered on 01/27/19 09:49; Start 01/24/19 at 09:00; Stop 01/27/19 at 10:40; Status DC Furosemide (Lasix) 20 mg DAILY IVP ; Start 01/24/19 at 11:00; Stop 01/24/19 at 11:00; Status DC Furosemide (Lasix) 20 mg DAILY NG Last administered on 01/27/19 09:50; Start 01/24/19 at 11:00; Stop 01/27/19 at 10:14; Status DC Potassium Chloride (KCl Oral Soln) 20 meq DAILY NG Last administered on 01/27/19at 09:50; Start 01/24/19 at 12:00; Stop 01/27/19 at 10:14; Status DC Barium Sulfate (Varibar Thin Liquid Apple) 148 gm 1X ONCE PO Last administered on 01/25/19 13:15; Start 01/25/19 at 13:15; Stop 01/25/19 at 13:16; Status DC Haloperidol Lactate (Haldol Inj) 5 mg 1X ONCE IVP Last administered on 01/26/19 07:33; Start 01/26/19 at 07:00; Stop 01/26/19 at 07:01; Status DC Haloperidol Lactate (Haldol Inj) 5 mg Q8HRS IVP Last administered on 01/26/19at 22:51; Start 01/26/19 at 14:00; Stop 01/27/19 at 10:14; Status DC Haloperidol Lactate (Haldol Inj) 5 mg 1X PRN PRN IVP AGITATION; Start 01/26/19 at 07:30; Stop 01/26/19 at 12:00; Status DC Diphenhydramine HCl (Benadryl) 25 mg PRN Q6HRS PRN IVP ITCHING; Start 01/26/19 at 16:45; Stop 01/27/19 at 10:14; Status DC Haloperidol Lactate (Haldol Inj) 5 mg PRN Q8HRS PRN IVP AGITATION Last administered on 01/27/19at 14:27; Start 01/27/19 at 10:15 Piperacillin Sod/ Tazobactam Sod 3.375 gm/Sodium Chloride 50 ml @ 100 mls/hr Q6HRS IV Last administered on 01/28/19at 12:38; Start 01/27/19 at 12:00 Linezolid/Dextrose 300 ml @ 300 mls/hr Q12HR IV Last administered on 01/28/19at 08:18; Start 01/27/19 at 12:00 Dexmedetomidine HCl 200 mcg/ Sodium Chloride 50 ml @ 0 mls/hr CONT PRN IV PER PROTOCOL Last administered on 01/28/19at 15:03; Start 01/27/19 at 15:15 Norepinephrine Bitartrate 250 ml @ 1.875 mls/ hr CONT PRN IV SEE I/O RECORD Last administered on 01/27/19at 16:38; Start 01/27/19 at 16:30 Sodium Chloride 1,000 ml @ 40 mls/hr Q24H IV Last administered on 01/27/19at 20:09; Start 01/27/19 at 20:15 Active Scripts Active [Multivitamins,Therapeutic Liq] 5 ML Liquid 5 Ml PEG DAILY Heparin Sodium (Heparin Sodium,Porcine) 5,000 Unit/1 Ml Vial 5,000 Unit SQ Q12HR Zosyn 2.25 Gram Vial (Piperacillin Sodium/Tazobactam) 2.25 Gm Vial 1 Each MC PRN DAILY PRN 10 Days ID doctor to decide on duration of iv zosyn Reported Vitamin C (Ascorbate Calcium) 500 Mg Tablet 500 Mg PO DAILY Aspirin 325 Mg Tablet 1 Tab PO DAILY Zofran (Ondansetron Hcl) 4 Mg Tablet 4 Mg PO PRN Q6HRS PRN B-1 (Thiamine HCl) 100 Mg Tablet 100 Mg PO DAILY Acetaminophen 160 Mg/5 Ml Oral.susp 650 Mg PO PRN Q4HRS PRN Mirtazapine 7.5 Mg Tablet 7.5 Mg PO QHS Albuterol Sulfate Neb Soln (Albuterol Sulfate) 2.5 Mg/3 Ml Vial.neb 2.5 Mg NEB BID Atorvastatin Calcium 10 Mg Tablet 10 Mg PO HS Protonix (Pantoprazole Sodium) 20 Mg Tablet.dr 40 Mg PO DAILY Amiodarone Hcl 200 Mg Tablet 1 Tab PO DAILY Seroquel (Quetiapine Fumarate) 25 Mg Tablet 25 Mg PO HS Tramadol Hcl 50 Mg Tablet 25 Mg PO Q6HRS PRN Seroquel (Quetiapine Fumarate) 25 Mg Tablet 12.5 Mg PO PRN Q6HRS PRN Allergies Allergies: Coded Allergies: No Known Drug Allergies (Unverified , 01/15/19) Physical Exam General: Other (sedated in ICU) Lungs: Other (few rhonchi bilaterally) Heart: Regular rate, Normal S1, Normal S2 Abdomen: Normal bowel sounds, Soft, No hepatosplenomegaly Extremities: No clubbing, No cyanosis, No edema, Other (cool to touch but no ischemic changes) Vitals VITALS Vital Signs Date Time Temp Pulse Resp B/P (MAP) Pulse Ox O2 Delivery O2 Flow Rate FiO2 01/28/19 15:00 82 29 109/57 (74) 99 BiPAP/CPAP 01/28/19 13:00 98.2 98.2 01/27/19 08:18 3.0 Labs Labs Laboratory Tests Test 01/26/19 18:24 01/27/19 05:00 01/27/19 11:16 01/27/19 13:10 Glucose (Fingerstick) 161 mg/dL (70-99) 162 mg/dL (70-99) White Blood Count 12.6 x10^3/uL (4.0-11.0) Red Blood Count 3.35 x10^6/uL (3.50-5.40) Hemoglobin 10.0 g/dL (12.0-15.5) Hematocrit 31.6 % (36.0-47.0) Mean Corpuscular Volume 94 fL (79-100) Mean Corpuscular Hemoglobin 30 pg (25-35) Mean Corpuscular Hemoglobin Concent 32 g/dL (31-37) Red Cell Distribution Width 19.4 % (11.5-14.5) Platelet Count 265 x10^3/uL (140-400) Neutrophils (%) (Auto) 86 % (31-73) Lymphocytes (%) (Auto) 7 % (24-48) Monocytes (%) (Auto) 6 % (0-9) Eosinophils (%) (Auto) 0 % (0-3) Basophils (%) (Auto) 1 % (0-3) Neutrophils # (Auto) 10.8 x10^3uL (1.8-7.7) Lymphocytes # (Auto) 0.9 x10^3/uL (1.0-4.8) Monocytes # (Auto) 0.8 x10^3/uL (0.0-1.1) Eosinophils # (Auto) 0.0 x10^3/uL (0.0-0.7) Basophils # (Auto) 0.1 x10^3/uL (0.0-0.2) Segmented Neutrophils % 78 % (35-66) Band Neutrophils % 11 % (0-9) Lymphocytes % 6 % (24-48) Monocytes % 5 % (0-10) Platelet Estimate Adequate (ADEQUATE) Polychromasia Slight Anisocytosis Slight Sodium Level 146 mmol/L (136-145) Potassium Level 4.0 mmol/L (3.5-5.1) Chloride Level 110 mmol/L (98-107) Carbon Dioxide Level 29 mmol/L (21-32) Anion Gap 7 (6-14) Blood Urea Nitrogen 55 mg/dL (7-20) Creatinine 1.2 mg/dL (0.6-1.0) Estimated GFR (Cockcroft-Gault) 44.3 Glucose Level 134 mg/dL (70-99) Calcium Level 9.0 mg/dL (8.5-10.1) Urine Collection Type Unknown Urine Color Yellow Urine Clarity Turbid Urine pH 5.0 Urine Specific [place] 1.020 Urine Protein 30 mg/dL (NEG-TRACE) Urine Glucose (UA) Negative mg/dL (NEG) Urine Ketones (Stick) Negative mg/dL (NEG) Urine Blood Large (NEG) Urine Nitrite Negative (NEG) Urine Bilirubin Negative (NEG) Urine Urobilinogen Dipstick 0.2 mg/dL (0.2 mg/dL) Urine Leukocyte Esterase Large (NEG) Urine RBC 11-20 /HPF (0-2) Urine WBC Tntc /HPF (0-4) Urine Bacteria Moderate /HPF (0-FEW) Urine Yeast Present /HPF Test 01/27/19 14:10 01/27/19 17:52 01/28/19 00:11 01/28/19 04:45 O2 Saturation 86 % (92-99) Arterial Blood pH 7.36 (7.35-7.45) Arterial Blood pCO2 at Patient Temp 49 mmHg (35-46) Arterial Blood pO2 at Patient Temp 52 mmHg (65-108) Arterial Blood HCO3 27 mmol/L (21-28) Arterial Blood Base Excess 1 mmol/L (-3-3) FiO2 40 Glucose (Fingerstick) 122 mg/dL (70-99) 240 mg/dL (70-99) White Blood Count 13.1 x10^3/uL (4.0-11.0) Red Blood Count 3.33 x10^6/uL (3.50-5.40) Hemoglobin 9.8 g/dL (12.0-15.5) Hematocrit 32.1 % (36.0-47.0) Mean Corpuscular Volume 97 fL (79-100) Mean Corpuscular Hemoglobin 30 pg (25-35) Mean Corpuscular Hemoglobin Concent 31 g/dL (31-37) Red Cell Distribution Width 20.3 % (11.5-14.5) Platelet Count 342 x10^3/uL (140-400) Neutrophils (%) (Auto) 85 % (31-73) Lymphocytes (%) (Auto) 7 % (24-48) Monocytes (%) (Auto) 6 % (0-9) Eosinophils (%) (Auto) 2 % (0-3) Basophils (%) (Auto) 1 % (0-3) Neutrophils # (Auto) 11.2 x10^3uL (1.8-7.7) Lymphocytes # (Auto) 0.9 x10^3/uL (1.0-4.8) Monocytes # (Auto) 0.7 x10^3/uL (0.0-1.1) Eosinophils # (Auto) 0.2 x10^3/uL (0.0-0.7) Basophils # (Auto) 0.1 x10^3/uL (0.0-0.2) Sodium Level 145 mmol/L (136-145) Potassium Level 4.2 mmol/L (3.5-5.1) Chloride Level 110 mmol/L (98-107) Carbon Dioxide Level 28 mmol/L (21-32) Anion Gap 7 (6-14) Blood Urea Nitrogen 57 mg/dL (7-20) Creatinine 1.4 mg/dL (0.6-1.0) Estimated GFR (Cockcroft-Gault) 37.1 Glucose Level 219 mg/dL (70-99) Calcium Level 8.5 mg/dL (8.5-10.1) Test 01/28/19 05:55 01/28/19 08:00 Glucose (Fingerstick) 206 mg/dL (70-99) O2 Saturation 96 % (92-99) Arterial Blood pH 7.32 (7.35-7.45) Arterial Blood pCO2 at Patient Temp 50 mmHg (35-46) Arterial Blood pO2 at Patient Temp 85 mmHg (65-108) Arterial Blood HCO3 25 mmol/L (21-28) Arterial Blood Base Excess -2 mmol/L (-3-3) FiO2 45% bipap Laboratory Tests Test 01/27/19 17:52 01/28/19 00:11 01/28/19 04:45 01/28/19 05:55 Glucose (Fingerstick) 122 mg/dL (70-99) 240 mg/dL (70-99) 206 mg/dL (70-99) White Blood Count 13.1 x10^3/uL (4.0-11.0) Red Blood Count 3.33 x10^6/uL (3.50-5.40) Hemoglobin 9.8 g/dL (12.0-15.5) Hematocrit 32.1 % (36.0-47.0) Mean Corpuscular Volume 97 fL (79-100) Mean Corpuscular Hemoglobin 30 pg (25-35) Mean Corpuscular Hemoglobin Concent 31 g/dL (31-37) Red Cell Distribution Width 20.3 % (11.5-14.5) Platelet Count 342 x10^3/uL (140-400) Neutrophils (%) (Auto) 85 % (31-73) Lymphocytes (%) (Auto) 7 % (24-48) Monocytes (%) (Auto) 6 % (0-9) Eosinophils (%) (Auto) 2 % (0-3) Basophils (%) (Auto) 1 % (0-3) Neutrophils # (Auto) 11.2 x10^3uL (1.8-7.7) Lymphocytes # (Auto) 0.9 x10^3/uL (1.0-4.8) Monocytes # (Auto) 0.7 x10^3/uL (0.0-1.1) Eosinophils # (Auto) 0.2 x10^3/uL (0.0-0.7) Basophils # (Auto) 0.1 x10^3/uL (0.0-0.2) Sodium Level 145 mmol/L (136-145) Potassium Level 4.2 mmol/L (3.5-5.1) Chloride Level 110 mmol/L (98-107) Carbon Dioxide Level 28 mmol/L (21-32) Anion Gap 7 (6-14) Blood Urea Nitrogen 57 mg/dL (7-20) Creatinine 1.4 mg/dL (0.6-1.0) Estimated GFR (Cockcroft-Gault) 37.1 Glucose Level 219 mg/dL (70-99) Calcium Level 8.5 mg/dL (8.5-10.1) Test 01/28/19 08:00 O2 Saturation 96 % (92-99) Arterial Blood pH 7.32 (7.35-7.45) Arterial Blood pCO2 at Patient Temp 50 mmHg (35-46) Arterial Blood pO2 at Patient Temp 85 mmHg (65-108) Arterial Blood HCO3 25 mmol/L (21-28) Arterial Blood Base Excess -2 mmol/L (-3-3) FiO2 45% bipap Assessment/Plan Assessment/Plan Respiratory failure status post recent myocardial infarction. History of ischemic cardiomyopathy. Presently on low-dose pressor agents and BiPAP. Tolerating NG tube enteral feedings. Plan: Since tolerating NG tube feedings, we will continue those feedings until after tracheostomy placed, assuming she remains stable. If after stabilization and trach placement, then elective gastrostomy tube placement could be considered. Dr. Hameed will assume her GI care on Wednesday. STEVE PEREZ MD January 28, 2019 16:25
[2019-01-28] MEDS: IV NORMAL SALINE 1000ML BAG 1,000 ML IV SCH (20:15)
[2019-01-28] MEDS: ATORVASTATIN CALCIUM 10 MG TABLET. PO SCH (20:39)
[2019-01-29] VITALS (28 sets, daily range): BP systolic 79–128; BP diastolic 39–62
[2019-01-29] MEDS: DEXMEDETOMIDINE 200 MCG in IV NORMAL SALINE 50ML 48 ML IV PRN ×7 (02:06→21:44)
[2019-01-29] MEDS: INSULIN LISPRO 300 UNITS/3 ML INSULN.PEN. SQ SCH ×3 (05:48→18:09)
[2019-01-29] MEDS: PIPERACILLIN/TAZOBACTAM 3.375 GM in IV NORMAL SALINE 50ML 50 ML IV SCH ×3 (05:48→18:08)
[2019-01-29 05:55] LABS: BASO # 0.1 x10^3/uL (0.0-0.2); BASO % 1 % (0-3); EOS # 0.3 x10^3/uL (0.0-0.7); EOS % 4 % (0-3); HEMATOCRIT 28.4 % (36.0-47.0); LYMPH # 0.8 x10^3/uL (1.0-4.8); LYMPH % 10 % (24-48); MEAN CORPUSCULAR HEMOGLOBIN 31 pg (25-35); MEAN CORPUSCULAR HGB CONC 32 g/dL (31-37); MEAN CORPUSCULAR VOLUME 96 fL (79-100); MONO # 0.6 x10^3/uL (0.0-1.1); MONO % 8 % (0-9); NEUT # 5.8 x10^3uL (1.8-7.7); NEUT % 77 % (31-73); PLATELET COUNT 201 x10^3/uL (140-400); RED BLOOD COUNT 2.96 x10^6/uL (3.50-5.40); RED CELL DISTRIBUTION WIDTH 19.3 % (11.5-14.5); WHITE BLOOD COUNT 7.5 x10^3/uL (4.0-11.0)
[2019-01-29 06:12] LABS: ALBUMIN 1.2 g/dL (3.4-5.0); ALBUMIN/GLOBULIN RATIO 0.3 (1.0-1.7); CALCIUM 8.3 mg/dL (8.5-10.1); CREATININE 1.4 mg/dL (0.6-1.0); GFR 37.1; TOTAL BILIRUBIN 0.3 mg/dL (0.2-1.0); TOTAL PROTEIN 5.5 g/dL (6.4-8.2)
[2019-01-29] MEDS: ALBUTEROL SULFATE 2.5 MG/3 ML NEBU. NEB SCH ×2 (08:22→20:04)
[2019-01-29 08:35] LABS: BASE EXCESS ABG -3 mmol/L (-3-3); HCO3 ABG 24 mmol/L (21-28); PCO2 ABG 50 mmHg (35-46); PO2 ABG 113 mmHg (65-108); SAT O2 ABG 98 % (92-99)
[2019-01-29 08:37] LABS: FIO2 ABG 45%
[2019-01-29] MEDS: AMIODARONE HCL 200 MG TABLET. PO SCH (08:52)
[2019-01-29] MEDS: ASCORBIC ACID 500 MG TABLET PO SCH (08:52)
[2019-01-29] MEDS: THIAMINE 100 MG TABLET. PO SCH (08:52)
[2019-01-29] MEDS: MULTIVITAMINS,THERAPEUTIC 5 ML ORAL LIQUID. PEG SCH (08:53)
[2019-01-29] MEDS: LANSOPRAZOLE 30 MG TAB.RAP.DR NG SCH (08:53)
[2019-01-29] MEDS: HEPARIN for SUB-Q USE 5,000 UNIT/ML VIAL. SQ SCH ×2 (08:53→20:36)
[2019-01-29] MEDS: ASPIRIN 325 MG TABLET PO SCH (09:00)
--- NOTE | 2019-01-29 10:16 | PDOC ---
Infectious Disease Note Subjective Subjective Sedated on BiPAP, FiO2 down to 40% Hypotensive, Levophed down to 3 mcg + diarrhea Tube feedings @ 40 ml/hr No fevers last 24 hours ROS ROS unobtainable Vital Sign Vital Signs Vital Signs Date Time Temp Pulse Resp B/P (MAP) Pulse Ox O2 Delivery O2 Flow Rate FiO2 01/29/19 09:35 100 BiPAP/CPAP 01/29/19 09:00 69 22 100/46 (64) 01/29/19 04:00 98.3 98.3 Physical Exam PHYSICAL EXAM GENERAL: Sedated, on BiPAP, + mitts HEENT: CLARIBEL. OGT NECK: Supple, LUNGS: + rhonchi HEART: S1, S2 regular ABDOMEN: Obese, soft, BS active, rectal tube in place : Kahn in place EXTREMITIES: Generalized trace edema, no cyanosis SKIN: No rash. sacrococcygeal area of stage 3 decubitus. NEUROLOGIC: Sedated/opens eyes to gentle tactile stimuli LUE-PICC clean Labs Lab Laboratory Tests Test 01/28/19 12:42 01/28/19 18:11 01/28/19 23:32 01/29/19 05:15 Glucose (Fingerstick) 195 mg/dL (70-99) 179 mg/dL (70-99) 225 mg/dL (70-99) White Blood Count 7.5 x10^3/uL (4.0-11.0) Red Blood Count 2.96 x10^6/uL (3.50-5.40) Hemoglobin 9.0 g/dL (12.0-15.5) Hematocrit 28.4 % (36.0-47.0) Mean Corpuscular Volume 96 fL (79-100) Mean Corpuscular Hemoglobin 31 pg (25-35) Mean Corpuscular Hemoglobin Concent 32 g/dL (31-37) Red Cell Distribution Width 19.3 % (11.5-14.5) Platelet Count 201 x10^3/uL (140-400) Neutrophils (%) (Auto) 77 % (31-73) Lymphocytes (%) (Auto) 10 % (24-48) Monocytes (%) (Auto) 8 % (0-9) Eosinophils (%) (Auto) 4 % (0-3) Basophils (%) (Auto) 1 % (0-3) Neutrophils # (Auto) 5.8 x10^3uL (1.8-7.7) Lymphocytes # (Auto) 0.8 x10^3/uL (1.0-4.8) Monocytes # (Auto) 0.6 x10^3/uL (0.0-1.1) Eosinophils # (Auto) 0.3 x10^3/uL (0.0-0.7) Basophils # (Auto) 0.1 x10^3/uL (0.0-0.2) Prothrombin Time 15.0 SEC (11.7-14.0) Prothromb Time International Ratio 1.2 (0.8-1.1) Sodium Level 146 mmol/L (136-145) Potassium Level 4.0 mmol/L (3.5-5.1) Chloride Level 111 mmol/L (98-107) Carbon Dioxide Level 27 mmol/L (21-32) Anion Gap 8 (6-14) Blood Urea Nitrogen 59 mg/dL (7-20) Creatinine 1.4 mg/dL (0.6-1.0) Estimated GFR (Cockcroft-Gault) 37.1 BUN/Creatinine Ratio 42 (6-20) Glucose Level 208 mg/dL (70-99) Calcium Level 8.3 mg/dL (8.5-10.1) Total Bilirubin 0.3 mg/dL (0.2-1.0) Aspartate Amino Transf (AST/SGOT) 36 U/L (15-37) Alanine Aminotransferase (ALT/SGPT) 24 U/L (14-59) Alkaline Phosphatase 347 U/L (46-116) Total Protein 5.5 g/dL (6.4-8.2) Albumin 1.2 g/dL (3.4-5.0) Albumin/Globulin Ratio 0.3 (1.0-1.7) Test 01/29/19 05:30 01/29/19 08:30 Glucose (Fingerstick) 182 mg/dL (70-99) O2 Saturation 98 % (92-99) Arterial Blood pH 7.30 (7.35-7.45) Arterial Blood pCO2 at Patient Temp 50 mmHg (35-46) Arterial Blood pO2 at Patient Temp 113 mmHg (65-108) Arterial Blood HCO3 24 mmol/L (21-28) Arterial Blood Base Excess -3 mmol/L (-3-3) FiO2 45% Micro 01/27. BLOOD CULTURE Preliminary NO GROWTH AFTER 1 DAY Objective Assessment Fever, better 01/27 BC NGTD, UA + pyuria and yeast Leucocytosis, better Left loculated effusion, s/p thoracentesis on 01/19. Cultures neg. sputum neg 01/20 Respiratory failure s/p extubation, now on BiPAP Circulatory failure CHF/Cardiomyopathy DM A fib, on amiodarone Stage 3 , sacral ulcer Anemia s/p PRBCs Yeast in urine, 01/16 & 01/27 Dysphagia Encephalopathy Plan Plan of Care Zyvox and Zosyn, restarted on 01/27 change Kahn local wound care D/w RN Condition guarded Prognosis poor Patient seen and examined. Chart reviewed in detail. Case discussed with ECONOMICS DEPARTMENT CHAIR. Agree with above plan. MELECIO AG APRN January 29, 2019 10:16 JONNATHAN RIVERA MD January 29, 2019 18:46
--- NOTE | 2019-01-29 10:28 | PDOC ---
GI PROGRESS NOTES Date Date/Time DATE: 01/29/19 TIME: 10:23 Subjective Subjective Or awake but combative. Still in soft restraints. Still on BiPAP. Tolerating NG tube feedings Objective Vitals Vital Signs Date Time Temp Pulse Resp B/P (MAP) Pulse Ox O2 Delivery O2 Flow Rate FiO2 01/29/19 09:35 100 BiPAP/CPAP 01/29/19 09:00 69 22 100/46 (64) 100 BiPAP/CPAP 01/29/19 08:52 67 93/45 01/29/19 08:22 100 BiPAP/CPAP 01/29/19 08:00 67 22 93/39 (57) 100 BiPAP/CPAP 01/29/19 08:00 Bi-pap 01/29/19 07:00 61 19 99/46 (63) 100 BiPAP/CPAP 01/29/19 06:00 66 15 94/51 (65) 100 BiPAP/CPAP 01/29/19 05:58 100 BiPAP/CPAP 01/29/19 05:45 66 82/42 (55) 01/29/19 05:15 61 87/43 (58) 01/29/19 05:00 65 21 100/51 (67) 100 BiPAP/CPAP 01/29/19 04:28 100 BiPAP/CPAP 01/29/19 04:00 Bi-pap 01/29/19 04:00 98.3 64 24 96/50 (65) 100 BiPAP/CPAP 98.3 01/29/19 03:00 62 22 92/45 (61) 100 BiPAP/CPAP 01/29/19 02:30 66 92/46 (61) 01/29/19 02:22 100 BiPAP/CPAP 01/29/19 02:15 61 79/41 (54) 01/29/19 02:00 62 24 87/44 (58) 100 BiPAP/CPAP 01/29/19 01:00 61 17 92/48 (63) 100 BiPAP/CPAP 01/29/19 00:15 62 95/49 (64) 01/29/19 00:00 Bi-pap 01/29/19 00:00 98.9 66 21 103/52 (69) 100 BiPAP/CPAP 98.9 01/28/19 23:36 100 BiPAP/CPAP 01/28/19 23:00 68 25 102/54 (70) 100 BiPAP/CPAP 01/28/19 22:00 61 25 93/44 (60) 100 BiPAP/CPAP 01/28/19 21:00 62 22 91/50 (64) 100 BiPAP/CPAP 01/28/19 20:29 100 BiPAP/CPAP 01/28/19 20:15 67 97/44 (61) 01/28/19 20:00 Bi-pap 01/28/19 20:00 99.4 64 18 110/56 (74) 100 BiPAP/CPAP 99.4 01/28/19 19:15 68 108/53 (71) 01/28/19 19:00 70 19 104/54 (71) 100 BiPAP/CPAP 01/28/19 18:01 100 BiPAP/CPAP 01/28/19 18:00 70 22 101/55 (70) 100 BiPAP/CPAP 01/28/19 17:00 70 24 113/62 (79) 100 BiPAP/CPAP 01/28/19 16:25 98 BiPAP/CPAP 01/28/19 16:00 99.0 70 25 113/63 (80) 99 BiPAP/CPAP 99.0 01/28/19 16:00 Bi-pap 01/28/19 15:00 82 29 109/57 (74) 99 BiPAP/CPAP 01/28/19 14:00 77 28 113/62 (79) 99 BiPAP/CPAP 01/28/19 13:00 98.2 74 20 117/56 (76) 99 BiPAP/CPAP 98.2 01/28/19 12:30 98 BiPAP/CPAP 01/28/19 12:00 Bi-pap 01/28/19 12:00 73 17 114/56 (75) 99 BiPAP/CPAP 01/28/19 11:00 69 18 117/67 (84) 98 BiPAP/CPAP Labs Labs Laboratory Tests Test 01/28/19 12:42 01/28/19 18:11 01/28/19 23:32 01/29/19 05:15 Glucose (Fingerstick) 195 mg/dL (70-99) 179 mg/dL (70-99) 225 mg/dL (70-99) White Blood Count 7.5 x10^3/uL (4.0-11.0) Red Blood Count 2.96 x10^6/uL (3.50-5.40) Hemoglobin 9.0 g/dL (12.0-15.5) Hematocrit 28.4 % (36.0-47.0) Mean Corpuscular Volume 96 fL (79-100) Mean Corpuscular Hemoglobin 31 pg (25-35) Mean Corpuscular Hemoglobin Concent 32 g/dL (31-37) Red Cell Distribution Width 19.3 % (11.5-14.5) Platelet Count 201 x10^3/uL (140-400) Neutrophils (%) (Auto) 77 % (31-73) Lymphocytes (%) (Auto) 10 % (24-48) Monocytes (%) (Auto) 8 % (0-9) Eosinophils (%) (Auto) 4 % (0-3) Basophils (%) (Auto) 1 % (0-3) Neutrophils # (Auto) 5.8 x10^3uL (1.8-7.7) Lymphocytes # (Auto) 0.8 x10^3/uL (1.0-4.8) Monocytes # (Auto) 0.6 x10^3/uL (0.0-1.1) Eosinophils # (Auto) 0.3 x10^3/uL (0.0-0.7) Basophils # (Auto) 0.1 x10^3/uL (0.0-0.2) Prothrombin Time 15.0 SEC (11.7-14.0) Prothromb Time International Ratio 1.2 (0.8-1.1) Sodium Level 146 mmol/L (136-145) Potassium Level 4.0 mmol/L (3.5-5.1) Chloride Level 111 mmol/L (98-107) Carbon Dioxide Level 27 mmol/L (21-32) Anion Gap 8 (6-14) Blood Urea Nitrogen 59 mg/dL (7-20) Creatinine 1.4 mg/dL (0.6-1.0) Estimated GFR (Cockcroft-Gault) 37.1 BUN/Creatinine Ratio 42 (6-20) Glucose Level 208 mg/dL (70-99) Calcium Level 8.3 mg/dL (8.5-10.1) Total Bilirubin 0.3 mg/dL (0.2-1.0) Aspartate Amino Transf (AST/SGOT) 36 U/L (15-37) Alanine Aminotransferase (ALT/SGPT) 24 U/L (14-59) Alkaline Phosphatase 347 U/L (46-116) Total Protein 5.5 g/dL (6.4-8.2) Albumin 1.2 g/dL (3.4-5.0) Albumin/Globulin Ratio 0.3 (1.0-1.7) Test 01/29/19 05:30 01/29/19 08:30 Glucose (Fingerstick) 182 mg/dL (70-99) O2 Saturation 98 % (92-99) Arterial Blood pH 7.30 (7.35-7.45) Arterial Blood pCO2 at Patient Temp 50 mmHg (35-46) Arterial Blood pO2 at Patient Temp 113 mmHg (65-108) Arterial Blood HCO3 24 mmol/L (21-28) Arterial Blood Base Excess -3 mmol/L (-3-3) FiO2 45% Physical Exam Physical Exam Awake but not appropriate, combative. A few rhonchi bilaterally Abd soft mildly distended and obese. No scars noted in the abdomen particularly the left upper quadrant Assessment Assessment Respiratory failure and BiPAP. Presently plans are for elective tracheostomy. We were asked to see her regarding elective PEG tube placement. We are waiting until decisions are made regarding the need for chronic PEG placement versus oral intake. This will be dependent on her recovery and whether tracheostomy is placed we hear from [facility] that her original institution in [place] is not sure a PEG tube can technically be placed due to her prior surgical history. This is curious since we don't have a prior abdominal surgical history and there are no surgical scars in the mid abdomen or left upper quadrant. I suspect they are suggesting is she is complicated from a cardiovascular point of view. Dr. Hameed will assume her care tomorrow and will discuss the appropriateness of consideration of the PEG tube next week STEVE PEREZ MD January 29, 2019 10:28
--- NOTE | 2019-01-29 10:34 | PDOC ---
PROGRESS NOTES Subjective Subjective opens eyes. on bipap and receiving NG tube feeding. note I greater than O. Objective Objective Vital Signs Date Time Temp Pulse Resp B/P (MAP) Pulse Ox O2 Delivery O2 Flow Rate FiO2 01/29/19 09:35 100 BiPAP/CPAP 01/29/19 09:00 69 22 100/46 (64) 01/29/19 04:00 98.3 98.3 01/27/19 08:18 3.0 Intake and Output 01/29/19 06:59 Intake Total 4783 ml Output Total 765 ml Balance 4018 ml IV Total 1727 ml Tube Feeding 1980 ml Other 1076 ml Output Urine Total 765 ml Physical Exam Abdomen: Normal bowel sounds Heart: Regular rate, Normal S1, Normal S2 Extremities: Other (1 plus edema legs) General: Alert HEENT: Atraumatic Lungs: Other (clear anteriorly . decreased breath sounds) Neuro: Normal gait, Normal speech, Normal tone, Sensation intact, Reflexes 2+ Psych/Mental Status: Other (sedated) Skin: No rashes, No breakdown, No significant lesion Assessment Assessment Problemsrecurrent respiratory arrest. 5. Acute kidney injury most likely secondary to the cardiopulmonary arrest resolved 6. Hypotension on levophed 7. Elevated liver function tests improved 8. Nonischemic cardiomyopathy with improvement of left ventricular ejection fraction 15-20% improved to 40%. 9. Acute on chronic hypoxic and hypercapnic respiratory failure on bipap 10. sepsis with shock 11. Acute on chronic systolic congestive heart failure compensated clinically 12. Paroxysmal atrial fibrillation, but not a candidate for Pradaxa due to recent gastrointestinal bleed in 06/2018 from gastric ulcer. 13. Oropharyngeal dysphagia 14. Diabetes mellitus type 2. 15. Mild coronary artery disease. suspected sleep apnea. needs out patient sleep study and hs bipap metabolic and toxic encephalopathy fever leukocytosis pyuria Medical Problems: (1) Cardiac arrest Status: Acute (2) HCAP (healthcare-associated pneumonia) Status: Acute (3) Liver failure Status: Acute Plan Plan of Care iv lasix d/c iv fluids continue levpophed continue zyvox and zosyn continue bipap tracheostomy Wednesday Peg after tracheostomy she has been accepted at [facility] and will transfer there after PEG and G tube placement lab tomorrow cxr tomorrow Comment Review of Relevant I have reviewed the following items kristen (where applicable) has been applied. Labs Laboratory Tests Test 01/27/19 11:16 01/27/19 13:10 01/27/19 14:10 01/27/19 17:52 Glucose (Fingerstick) 162 mg/dL (70-99) 122 mg/dL (70-99) Urine Collection Type Unknown Urine Color Yellow Urine Clarity Turbid Urine pH 5.0 Urine Specific [place] 1.020 Urine Protein 30 mg/dL (NEG-TRACE) Urine Glucose (UA) Negative mg/dL (NEG) Urine Ketones (Stick) Negative mg/dL (NEG) Urine Blood Large (NEG) Urine Nitrite Negative (NEG) Urine Bilirubin Negative (NEG) Urine Urobilinogen Dipstick 0.2 mg/dL (0.2 mg/dL) Urine Leukocyte Esterase Large (NEG) Urine RBC 11-20 /HPF (0-2) Urine WBC Tntc /HPF (0-4) Urine Bacteria Moderate /HPF (0-FEW) Urine Yeast Present /HPF O2 Saturation 86 % (92-99) Arterial Blood pH 7.36 (7.35-7.45) Arterial Blood pCO2 at Patient Temp 49 mmHg (35-46) Arterial Blood pO2 at Patient Temp 52 mmHg (65-108) Arterial Blood HCO3 27 mmol/L (21-28) Arterial Blood Base Excess 1 mmol/L (-3-3) FiO2 40 Test 01/28/19 00:11 01/28/19 04:45 01/28/19 05:55 01/28/19 08:00 Glucose (Fingerstick) 240 mg/dL (70-99) 206 mg/dL (70-99) White Blood Count 13.1 x10^3/uL (4.0-11.0) Red Blood Count 3.33 x10^6/uL (3.50-5.40) Hemoglobin 9.8 g/dL (12.0-15.5) Hematocrit 32.1 % (36.0-47.0) Mean Corpuscular Volume 97 fL (79-100) Mean Corpuscular Hemoglobin 30 pg (25-35) Mean Corpuscular Hemoglobin Concent 31 g/dL (31-37) Red Cell Distribution Width 20.3 % (11.5-14.5) Platelet Count 342 x10^3/uL (140-400) Neutrophils (%) (Auto) 85 % (31-73) Lymphocytes (%) (Auto) 7 % (24-48) Monocytes (%) (Auto) 6 % (0-9) Eosinophils (%) (Auto) 2 % (0-3) Basophils (%) (Auto) 1 % (0-3) Neutrophils # (Auto) 11.2 x10^3uL (1.8-7.7) Lymphocytes # (Auto) 0.9 x10^3/uL (1.0-4.8) Monocytes # (Auto) 0.7 x10^3/uL (0.0-1.1) Eosinophils # (Auto) 0.2 x10^3/uL (0.0-0.7) Basophils # (Auto) 0.1 x10^3/uL (0.0-0.2) Sodium Level 145 mmol/L (136-145) Potassium Level 4.2 mmol/L (3.5-5.1) Chloride Level 110 mmol/L (98-107) Carbon Dioxide Level 28 mmol/L (21-32) Anion Gap 7 (6-14) Blood Urea Nitrogen 57 mg/dL (7-20) Creatinine 1.4 mg/dL (0.6-1.0) Estimated GFR (Cockcroft-Gault) 37.1 Glucose Level 219 mg/dL (70-99) Calcium Level 8.5 mg/dL (8.5-10.1) O2 Saturation 96 % (92-99) Arterial Blood pH 7.32 (7.35-7.45) Arterial Blood pCO2 at Patient Temp 50 mmHg (35-46) Arterial Blood pO2 at Patient Temp 85 mmHg (65-108) Arterial Blood HCO3 25 mmol/L (21-28) Arterial Blood Base Excess -2 mmol/L (-3-3) FiO2 45% bipap Test 01/28/19 12:42 01/28/19 18:11 01/28/19 23:32 01/29/19 05:15 Glucose (Fingerstick) 195 mg/dL (70-99) 179 mg/dL (70-99) 225 mg/dL (70-99) White Blood Count 7.5 x10^3/uL (4.0-11.0) Red Blood Count 2.96 x10^6/uL (3.50-5.40) Hemoglobin 9.0 g/dL (12.0-15.5) Hematocrit 28.4 % (36.0-47.0) Mean Corpuscular Volume 96 fL (79-100) Mean Corpuscular Hemoglobin 31 pg (25-35) Mean Corpuscular Hemoglobin Concent 32 g/dL (31-37) Red Cell Distribution Width 19.3 % (11.5-14.5) Platelet Count 201 x10^3/uL (140-400) Neutrophils (%) (Auto) 77 % (31-73) Lymphocytes (%) (Auto) 10 % (24-48) Monocytes (%) (Auto) 8 % (0-9) Eosinophils (%) (Auto) 4 % (0-3) Basophils (%) (Auto) 1 % (0-3) Neutrophils # (Auto) 5.8 x10^3uL (1.8-7.7) Lymphocytes # (Auto) 0.8 x10^3/uL (1.0-4.8) Monocytes # (Auto) 0.6 x10^3/uL (0.0-1.1) Eosinophils # (Auto) 0.3 x10^3/uL (0.0-0.7) Basophils # (Auto) 0.1 x10^3/uL (0.0-0.2) Prothrombin Time 15.0 SEC (11.7-14.0) Prothromb Time International Ratio 1.2 (0.8-1.1) Sodium Level 146 mmol/L (136-145) Potassium Level 4.0 mmol/L (3.5-5.1) Chloride Level 111 mmol/L (98-107) Carbon Dioxide Level 27 mmol/L (21-32) Anion Gap 8 (6-14) Blood Urea Nitrogen 59 mg/dL (7-20) Creatinine 1.4 mg/dL (0.6-1.0) Estimated GFR (Cockcroft-Gault) 37.1 BUN/Creatinine Ratio 42 (6-20) Glucose Level 208 mg/dL (70-99) Calcium Level 8.3 mg/dL (8.5-10.1) Total Bilirubin 0.3 mg/dL (0.2-1.0) Aspartate Amino Transf (AST/SGOT) 36 U/L (15-37) Alanine Aminotransferase (ALT/SGPT) 24 U/L (14-59) Alkaline Phosphatase 347 U/L (46-116) Total Protein 5.5 g/dL (6.4-8.2) Albumin 1.2 g/dL (3.4-5.0) Albumin/Globulin Ratio 0.3 (1.0-1.7) Test 01/29/19 05:30 01/29/19 08:30 Glucose (Fingerstick) 182 mg/dL (70-99) O2 Saturation 98 % (92-99) Arterial Blood pH 7.30 (7.35-7.45) Arterial Blood pCO2 at Patient Temp 50 mmHg (35-46) Arterial Blood pO2 at Patient Temp 113 mmHg (65-108) Arterial Blood HCO3 24 mmol/L (21-28) Arterial Blood Base Excess -3 mmol/L (-3-3) FiO2 45% Laboratory Tests Test 01/28/19 12:42 01/28/19 18:11 01/28/19 23:32 01/29/19 05:15 Glucose (Fingerstick) 195 mg/dL (70-99) 179 mg/dL (70-99) 225 mg/dL (70-99) White Blood Count 7.5 x10^3/uL (4.0-11.0) Red Blood Count 2.96 x10^6/uL (3.50-5.40) Hemoglobin 9.0 g/dL (12.0-15.5) Hematocrit 28.4 % (36.0-47.0) Mean Corpuscular Volume 96 fL (79-100) Mean Corpuscular Hemoglobin 31 pg (25-35) Mean Corpuscular Hemoglobin Concent 32 g/dL (31-37) Red Cell Distribution Width 19.3 % (11.5-14.5) Platelet Count 201 x10^3/uL (140-400) Neutrophils (%) (Auto) 77 % (31-73) Lymphocytes (%) (Auto) 10 % (24-48) Monocytes (%) (Auto) 8 % (0-9) Eosinophils (%) (Auto) 4 % (0-3) Basophils (%) (Auto) 1 % (0-3) Neutrophils # (Auto) 5.8 x10^3uL (1.8-7.7) Lymphocytes # (Auto) 0.8 x10^3/uL (1.0-4.8) Monocytes # (Auto) 0.6 x10^3/uL (0.0-1.1) Eosinophils # (Auto) 0.3 x10^3/uL (0.0-0.7) Basophils # (Auto) 0.1 x10^3/uL (0.0-0.2) Prothrombin Time 15.0 SEC (11.7-14.0) Prothromb Time International Ratio 1.2 (0.8-1.1) Sodium Level 146 mmol/L (136-145) Potassium Level 4.0 mmol/L (3.5-5.1) Chloride Level 111 mmol/L (98-107) Carbon Dioxide Level 27 mmol/L (21-32) Anion Gap 8 (6-14) Blood Urea Nitrogen 59 mg/dL (7-20) Creatinine 1.4 mg/dL (0.6-1.0) Estimated GFR (Cockcroft-Gault) 37.1 BUN/Creatinine Ratio 42 (6-20) Glucose Level 208 mg/dL (70-99) Calcium Level 8.3 mg/dL (8.5-10.1) Total Bilirubin 0.3 mg/dL (0.2-1.0) Aspartate Amino Transf (AST/SGOT) 36 U/L (15-37) Alanine Aminotransferase (ALT/SGPT) 24 U/L (14-59) Alkaline Phosphatase 347 U/L (46-116) Total Protein 5.5 g/dL (6.4-8.2) Albumin 1.2 g/dL (3.4-5.0) Albumin/Globulin Ratio 0.3 (1.0-1.7) Test 01/29/19 05:30 01/29/19 08:30 Glucose (Fingerstick) 182 mg/dL (70-99) O2 Saturation 98 % (92-99) Arterial Blood pH 7.30 (7.35-7.45) Arterial Blood pCO2 at Patient Temp 50 mmHg (35-46) Arterial Blood pO2 at Patient Temp 113 mmHg (65-108) Arterial Blood HCO3 24 mmol/L (21-28) Arterial Blood Base Excess -3 mmol/L (-3-3) FiO2 45% Microbiology 01/27/19 Blood Culture - Preliminary, Resulted NO GROWTH AFTER 1 DAY 01/19/19 Anaerobic/Aerobic Culture - Final, Complete 01/19/19 Anaerobic Culture Result 1 (BASIA) - Final, Complete 01/19/19 Aerobic Culture - Final, Complete 01/19/19 Aerobic Culture Result 1 (BASIA) - Final, Complete 01/19/19 Gram Stain - Final, Complete 01/19/19 Gram Stain Result 1 (BASIA) - Final, Complete 01/19/19 Gram Stain Result 2 (BASIA) - Final, Complete 01/20/19 - Final, Complete 01/20/19 - Final, Complete 01/20/19 - Final, Complete 01/20/19 Gram Stain Evaluation - Final, Complete 01/20/19 Sputum Culture - Final, Complete 01/20/19 Sputum Result 1 - Final, Complete 01/19/19 AFB Specimen Processing Tissue - Final, Resulted 01/19/19 Acid Fast Bacilli Culture, Resulted Pending 01/19/19 Gram Stain - Final, Resulted 01/16/19 Urine Culture - Final, Complete 01/16/19 Urine Culture Result 1 (BASIA) - Final, Complete Medications Current Medications Propofol (Diprivan) 200 mg 1X ONCE IV ; Start 01/15/19 at 15:00; Stop 01/15/19 at 15:06; Status DC Midazolam HCl (Versed) 5 mg 1X ONCE IV Last administered on 01/15/19at 15:59; Start 01/15/19 at 15:00; Stop 01/15/19 at 15:01; Status DC Propofol 50 ml @ As Directed STK-MED ONCE IV ; Start 01/15/19 at 15:02; Stop 01/15/19 at 15:03; Status DC Midazolam HCl 100 ml @ 0 mls/hr 1X ONCE IV Last administered on 01/15/19at 15:19; Start 01/15/19 at 15:15; Stop 01/15/19 at 15:16; Status DC Calcium Gluconate (Calcium Gluconate) 1,000 mg 1X ONCE IVP Last administered on 01/15/19at 15:58; Start 01/15/19 at 15:30; Stop 01/15/19 at 15:31; Status DC Norepinephrine Bitartrate 250 ml @ 1.875 mls/ hr CONT PRN IV SEE I/O RECORD Last administered on 01/20/19at 04:15; Start 01/15/19 at 17:00; Stop 01/22/19 at 10:32; Status DC Piperacillin Sod/ Tazobactam Sod (Zosyn Per Pharmacy) 1 each PRN DAILY PRN MC SEE COMMENTS; Start 01/15/19 at 17:15; Stop 01/24/19 at 10:37; Status DC Albuterol Sulfate (Ventolin Neb Soln) 2.5 mg PRN Q4HRS PRN NEB SHORTNESS OF BREATH; Start 01/15/19 at 17:15 Midazolam HCl 100 ml @ 5 mls/hr CONT PRN IV SEE I/O RECORD Last administered on 01/19/19at 05:03; Start 01/15/19 at 17:15; Stop 01/20/19 at 09:46; Status DC Fentanyl Citrate (Fentanyl 2ml Vial) 50 mcg PRN Q2HR PRN IV PAIN Last administered on 01/25/19at 14:48; Start 01/15/19 at 17:15; Stop 01/27/19 at 10:14; Status DC Piperacillin Sod/ Tazobactam Sod 2.25 gm/Sodium Chloride 50 ml @ 100 mls/hr Q6HRS IV Last administered on 01/19/19at 05:59; Start 01/15/19 at 18:00; Stop 01/19/19 at 11:25; Status DC Albuterol Sulfate (Ventolin Neb Soln) 2.5 mg RTBID NEB Last administered on 01/29/19at 08:22; Start 01/15/19 at 20:00 Amiodarone HCl (Cordarone) 200 mg DAILY PO Last administered on 01/29/19at 0 8:52; Start 01/16/19 at 09:00 Aspirin (Dieudonne Aspirin) 325 mg DAILY PO Last administered on 01/28/19at 08:17; Start 01/16/19 at 09:00 Atorvastatin Calcium (Lipitor) 10 mg HS PO Last administered on 01/28/19at 20:39; Start 01/15/19 at 21:00 Carvedilol (Coreg) 3.125 mg BIDWMEALS PO ; Start 01/15/19 at 18:30; Stop 01/18/19 at 14:39; Status DC Docusate Sodium (Colace) 100 mg PRN DAILY PRN PO hard stools; Start 01/15/19 at 17:15 Furosemide (Lasix) 40 mg BID94 PO ; Start 01/16/19 at 09:00; Stop 01/16/19 at 10:50; Status DC Mirtazapine (Remeron) 7.5 mg DAILY PO ; Start 01/16/19 at 09:00; Stop 01/16/19 at 09:00; Status DC Tramadol HCl (Ultram) 25 mg PRN Q6HRS PRN PO MODERATE PAIN Last administered on 01/23/19at 20:14; Start 01/15/19 at 17:15; Stop 01/25/19 at 14:40; Status DC Acetaminophen (Tylenol) 650 mg PRN Q4HRS PRN PO FEVER Last administered on 01/15/19at 20:57; Start 01/15/19 at 17:15; Stop 01/16/19 at 08:07; Status DC Ascorbic Acid (Vitamin C) 500 mg DAILY PO Last administered on 01/29/19at 08:52; Start 01/16/19 at 09:00 Magnesium Hydroxide (Milk Of Magnesia) 2,400 mg PRN DAILY PRN PO CONSTIPATION; Start 01/15/19 at 18:45 Ondansetron HCl (Zofran Odt) 4 mg PRN Q6HRS PRN PO NAUSEA/VOMITING; Start 01/15/19 at 18:45 Pantoprazole Sodium (Protonix) 40 mg DAILYAC PO Last administered on 01/18/19at 07:52; Start 01/16/19 at 07:30; Stop 01/18/19 at 08:02; Status DC Quetiapine Fumarate (SEROquel) 12.5 mg PRN Q6HRS PRN PO AGITATION Last administered on 01/25/19at 08:29; Start 01/15/19 at 17:15; Stop 01/25/19 at 14:40; Status DC Quetiapine Fumarate (SEROquel) 25 mg QHS PO Last administered on 01/17/19at 21:08; Start 01/15/19 at 21:00; Stop 01/18/19 at 14:39; Status DC Thiamine Mononitrate (Vitamin B-1) 100 mg DAILY PO Last administered on 01/29/19 08:52; Start 01/16/19 at 09:00 Vancomycin HCl (Vanco Per Pharmacy) 1 each PRN DAILY PRN MC SEE COMMENTS Last administered on 01/15/19at 21:10; Start 01/15/19 at 17:45; Stop 01/16/19 at 08:06; Status DC Piperacillin Sod/ Tazobactam Sod (Zosyn Per Pharmacy) 1 each PRN DAILY PRN MC SEE COMMENTS; Start 01/15/19 at 17:45; Status UNV Insulin Human Lispro (HumaLOG) 0-5 UNITS TIDWMEALS SQ ; Start 01/16/19 at 08:00; Stop 01/16/19 at 08:00; Status DC Dextrose (Dextrose 50%-Water Syringe) 12.5 gm PRN Q15MIN PRN IV SEE COMMENTS; Start 01/15/19 at 17:45 Vancomycin HCl 2 gm/Sodium Chloride 500 ml @ 250 mls/hr 1X ONCE IV Last administered on 01/15/19at 20:56; Start 01/15/19 at 20:00; Stop 01/15/19 at 21:59; Status DC Insulin Human Lispro (HumaLOG) 0-5 UNITS Q6HRS SQ Last administered on 01/29/19at 05:48; Start 01/16/19 at 00:00 Vancomycin HCl 1.25 gm/Sodium Chloride 250 ml @ 167 mls/hr Q24H IV ; Start 01/16/19 at 21:00; Stop 01/16/19 at 21:00; Status DC Vancomycin HCl (Vancomycin Trough Level) 1 each 1X ONCE MC ; Start 01/17/19 at 20:30; Stop 01/17/19 at 20:31; Status Cancel Mirtazapine (Remeron) 7.5 mg QHS PO Last administered on 01/25/19at 21:07; Start 01/16/19 at 21:00; Stop 01/26/19 at 16:44; Status DC Linezolid/Dextrose 300 ml @ 300 mls/hr Q12HR IV Last administered on 01/19/19at 21:52; Start 01/16/19 at 09:00; Stop 01/20/19 at 08:26; Status DC Acetaminophen (Tylenol) 650 mg PRN Q4HRS PRN PEG MILD PAIN / TEMP Last administered on 01/27/19at 17:11; Start 01/16/19 at 08:15 Famotidine (Pepcid) 20 mg QHS PO Last administered on 01/17/19at 21:08; Start 01/16/19 at 21:00; Stop 01/18/19 at 13:06; Status DC Heparin Sodium (Porcine) (Heparin Sodium) 5,000 unit Q12HR SQ Last administered on 01/18/19at 13:18; Start 01/16/19 at 21:00; Stop 01/19/19 at 20:15; Status DC Sodium Chloride 500 ml @ 250 mls/hr Q1HR PRN IV HYPOTENTION; Start 01/17/19 at 19:15 Pantoprazole Sodium (PROTONIX VIAL for IV PUSH) 40 mg DAILYAC IVP Last administered on 01/22/19 08:33; Start 01/19/19 at 07:30; Stop 01/22/19 at 11:39; Status DC Piperacillin Sod/ Tazobactam Sod 3.375 gm/Sodium Chloride 50 ml @ 100 mls/hr Q6HRS IV Last administered on 01/24/19 05:57; Start 01/19/19 at 12:00; Stop 01/24/19 at 08:40; Status DC Magnesium Sulfate 50 ml @ 25 mls/hr 1X ONCE IV Last administered on 01/19/19at 15:04; Start 01/19/19 at 12:30; Stop 01/19/19 at 14:29; Status DC Dobutamine HCl/ Dextrose 250 ml @ 6.302 mls/ hr CONT PRN IV SEE I/O RECORD Last administered on 01/21/19 07:23; Start 01/19/19 at 16:00; Stop 01/24/19 at 19:57; Status DC Heparin Sodium (Porcine) (Heparin Sodium) 5,000 unit Q12HR SQ Last administered on 01/29/19 08:53; Start 01/20/19 at 01:45 Multivitamins (Thera-Plus Oral Liquid) 5 ml DAILY PEG Last administered on 01/29/19 08:53; Start 01/21/19 at 09:00 Potassium Chloride (KCl Oral Soln) 40 meq 1X ONCE PO Last administered on 01/21/19 11:56; Start 01/21/19 at 11:00; Stop 01/21/19 at 11:01; Status DC Lansoprazole (Prevacid) 30 mg DAILY NG Last administered on 01/29/19 08:53; Start 01/23/19 at 09:00 Potassium Chloride/Water 50 ml @ 50 mls/hr 1X ONCE IV Last administered on 01/23/19at 10:11; Start 01/23/19 at 10:00; Stop 01/23/19 at 10:59; Status DC Potassium Chloride (KCl Oral Soln) 20 meq 1X ONCE NG ; Start 01/23/19 at 10:15; Stop 01/23/19 at 10:16; Status DC Amoxicillin/ Clavulanate Potassium (Augmentin 875/ 125mg) 1 tab BID PO Last administered on 01/27/19at 09:49; Start 01/24/19 at 09:00; Stop 01/27/19 at 10:40; Status DC Furosemide (Lasix) 20 mg DAILY IVP ; Start 01/24/19 at 11:00; Stop 01/24/19 at 11:00; Status DC Furosemide (Lasix) 20 mg DAILY NG Last administered on 01/27/19at 09:50; Start 01/24/19 at 11:00; Stop 01/27/19 at 10:14; Status DC Potassium Chloride (KCl Oral Soln) 20 meq DAILY NG Last administered on 01/27/19at 09:50; Start 01/24/19 at 12:00; Stop 01/27/19 at 10:14; Status DC Barium Sulfate (Varibar Thin Liquid Apple) 148 gm 1X ONCE PO Last administered on 01/25/19at 13:15; Start 01/25/19 at 13:15; Stop 01/25/19 at 13:16; Status DC Haloperidol Lactate (Haldol Inj) 5 mg 1X ONCE IVP Last administered on 01/26/19at 07:33; Start 01/26/19 at 07:00; Stop 01/26/19 at 07:01; Status DC Haloperidol Lactate (Haldol Inj) 5 mg Q8HRS IVP Last administered on 01/26/19at 22:51; Start 01/26/19 at 14:00; Stop 01/27/19 at 10:14; Status DC Haloperidol Lactate (Haldol Inj) 5 mg 1X PRN PRN IVP AGITATION; Start 01/26/19 at 07:30; Stop 01/26/19 at 12:00; Status DC Diphenhydramine HCl (Benadryl) 25 mg PRN Q6HRS PRN IVP ITCHING; Start 01/26/19 at 16:45; Stop 01/27/19 at 10:14; Status DC Haloperidol Lactate (Haldol Inj) 5 mg PRN Q8HRS PRN IVP AGITATION Last administered on 01/27/19at 14:27; Start 01/27/19 at 10:15 Piperacillin Sod/ Tazobactam Sod 3.375 gm/Sodium Chloride 50 ml @ 100 mls/hr Q6HRS IV Last administered on 01/29/19at 05:48; Start 01/27/19 at 12:00 Linezolid/Dextrose 300 ml @ 300 mls/hr Q12HR IV Last administered on 01/28/19at 20:39; Start 01/27/19 at 12:00 Dexmedetomidine HCl 200 mcg/ Sodium Chloride 50 ml @ 0 mls/hr CONT PRN IV PER PROTOCOL Last administered on 01/29/19 05:00; Start 01/27/19 at 15:15 Norepinephrine Bitartrate 250 ml @ 1.875 mls/ hr CONT PRN IV SEE I/O RECORD Last administered on 01/27/19at 16:38; Start 01/27/19 at 16:30 Sodium Chloride 1,000 ml @ 40 mls/hr Q24H IV Last administered on 01/27/19at 20:09; Start 01/27/19 at 20:15 Active Scripts Active [Multivitamins,Therapeutic Liq] 5 ML Liquid 5 Ml PEG DAILY Heparin Sodium (Heparin Sodium,Porcine) 5,000 Unit/1 Ml Vial 5,000 Unit SQ Q12HR Zosyn 2.25 Gram Vial (Piperacillin Sodium/Tazobactam) 2.25 Gm Vial 1 Each PRN DAILY PRN 10 Days ID doctor to decide on duration of iv zosyn Reported Vitamin C (Ascorbate Calcium) 500 Mg Tablet 500 Mg PO DAILY Aspirin 325 Mg Tablet 1 Tab PO DAILY Zofran (Ondansetron Hcl) 4 Mg Tablet 4 Mg PO PRN Q6HRS PRN B-1 (Thiamine HCl) 100 Mg Tablet 100 Mg PO DAILY Acetaminophen 160 Mg/5 Ml Oral.susp 650 Mg PO PRN Q4HRS PRN Mirtazapine 7.5 Mg Tablet 7.5 Mg PO QHS Albuterol Sulfate Neb Soln (Albuterol Sulfate) 2.5 Mg/3 Ml Vial.neb 2.5 Mg NEB BID Atorvastatin Calcium 10 Mg Tablet 10 Mg PO HS Protonix (Pantoprazole Sodium) 20 Mg Tablet.dr 40 Mg PO DAILY Amiodarone Hcl 200 Mg Tablet 1 Tab PO DAILY Seroquel (Quetiapine Fumarate) 25 Mg Tablet 25 Mg PO HS Tramadol Hcl 50 Mg Tablet 25 Mg PO Q6HRS PRN Seroquel (Quetiapine Fumarate) 25 Mg Tablet 12.5 Mg PO PRN Q6HRS PRN Vitals/I & O Vital Sign - Last 24 Hours 01/28/19 01/28/19 01/28/19 01/28/19 11:00 12:00 12:00 12:30 Pulse 69 73 Resp 18 17 B/P (MAP) 117/67 (84) 114/56 (75) Pulse Ox 98 99 98 O2 Delivery BiPAP/CPAP BiPAP/CPAP Bi-pap BiPAP/CPAP 01/28/19 01/28/19 01/28/19 01/28/19 13:00 14:00 15:00 16:00 Temp 98.2 98.2 Pulse 74 77 82 Resp 20 28 29 B/P (MAP) 117/56 (76) 113/62 (79) 109/57 (74) Pulse Ox 99 99 99 O2 Delivery BiPAP/CPAP BiPAP/CPAP BiPAP/CPAP Bi-pap 01/28/19 01/28/19 01/28/19 01/28/19 16:00 16:25 17:00 18:00 Temp 99.0 99.0 Pulse 70 70 70 Resp 25 24 22 B/P (MAP) 113/63 (80) 113/62 (79) 101/55 (70) Pulse Ox 99 98 100 100 O2 Delivery BiPAP/CPAP BiPAP/CPAP BiPAP/CPAP BiPAP/CPAP 01/28/19 01/28/19 01/28/19 01/28/19 18:01 19:00 19:15 20:00 Temp 99.4 99.4 Pulse 70 68 64 Resp 19 18 B/P (MAP) 104/54 (71) 108/53 (71) 110/56 (74) Pulse Ox 100 100 100 O2 Delivery BiPAP/CPAP BiPAP/CPAP BiPAP/CPAP 01/28/19 01/28/19 01/28/19 01/28/19 20:00 20:15 20:29 21:00 Pulse 67 62 Resp 22 B/P (MAP) 97/44 (61) 91/50 (64) Pulse Ox 100 100 O2 Delivery Bi-pap BiPAP/CPAP BiPAP/CPAP 01/28/19 01/28/19 01/28/19 01/29/19 22:00 23:00 23:36 00:00 Temp 98.9 98.9 Pulse 61 68 66 Resp 25 25 21 B/P (MAP) 93/44 (60) 102/54 (70) 103/52 (69) Pulse Ox 100 100 100 100 O2 Delivery BiPAP/CPAP BiPAP/CPAP BiPAP/CPAP BiPAP/CPAP 01/29/19 01/29/19 01/29/19 01/29/19 00:00 00:15 01:00 02:00 Pulse 62 61 62 Resp 17 24 B/P (MAP) 95/49 (64) 92/48 (63) 87/44 (58) Pulse Ox 100 100 O2 Delivery Bi-pap BiPAP/CPAP BiPAP/CPAP 01/29/19 01/29/19 01/29/19 01/29/19 02:15 02:22 02:30 03:00 Pulse 61 66 62 Resp 22 B/P (MAP) 79/41 (54) 92/46 (61) 92/45 (61) Pulse Ox 100 100 O2 Delivery BiPAP/CPAP BiPAP/CPAP 01/29/19 01/29/19 01/29/19 01/29/19 04:00 04:00 04:28 05:00 Temp 98.3 98.3 Pulse 64 65 Resp 24 21 B/P (MAP) 96/50 (65) 100/51 (67) Pulse Ox 100 100 100 O2 Delivery BiPAP/CPAP Bi-pap BiPAP/CPAP BiPAP/CPAP 01/29/19 01/29/19 01/29/19 01/29/19 05:15 05:45 05:58 06:00 Pulse 61 66 66 Resp 15 B/P (MAP) 87/43 (58) 82/42 (55) 94/51 (65) Pulse Ox 100 100 O2 Delivery BiPAP/CPAP BiPAP/CPAP 01/29/19 01/29/19 01/29/19 01/29/19 07:00 08:00 08:00 08:22 Pulse 61 67 Resp 19 22 B/P (MAP) 99/46 (63) 93/39 (57) Pulse Ox 100 100 100 O2 Delivery BiPAP/CPAP Bi-pap BiPAP/CPAP BiPAP/CPAP 01/29/19 01/29/19 01/29/19 08:52 09:00 09:35 Pulse 67 69 Resp 22 B/P (MAP) 93/45 100/46 (64) Pulse Ox 100 100 O2 Delivery BiPAP/CPAP BiPAP/CPAP Intake and Output 01/28/19 01/28/19 01/29/19 14:59 22:59 06:59 Intake Total 350 ml 650 ml 3783 ml Output Total 175 ml 355 ml 235 ml Balance 175 ml 295 ml 3548 ml CHRISTINA CHAVARRIA MD January 29, 2019 10:34
[2019-01-29] MEDS ORDERED: FUROSEMIDE 40 MG/4 ML VIAL. IVP ONE (10:45)
--- NOTE | 2019-01-29 15:35 | PDOC ---
PULMONARY PROGRESS NOTES Subjective EXTUBATED 01/20 PT TRANSFER BACK TO ICU FOR HYPOXEMIA AND DELIRIUM FEVER 01/27 01/29 ON BIPAP SEDATED WITH PRECEDEX Vitals Vital Signs Date Time Temp Pulse Resp B/P (MAP) Pulse Ox O2 Delivery O2 Flow Rate FiO2 01/29/19 15:00 76 25 111/53 (72) 100 BiPAP/CPAP 01/29/19 12:05 5.0 01/29/19 04:00 98.3 98.3 General: Confused Lungs: Clear Cardiovascular: S1, S2 Abdomen: Soft, Non-tender Extremities: Other (EDEMA) Skin: Warm Labs Laboratory Tests Test 01/27/19 17:52 01/28/19 00:11 01/28/19 04:45 01/28/19 05:55 Glucose (Fingerstick) 122 mg/dL (70-99) 240 mg/dL (70-99) 206 mg/dL (70-99) White Blood Count 13.1 x10^3/uL (4.0-11.0) Red Blood Count 3.33 x10^6/uL (3.50-5.40) Hemoglobin 9.8 g/dL (12.0-15.5) Hematocrit 32.1 % (36.0-47.0) Mean Corpuscular Volume 97 fL (79-100) Mean Corpuscular Hemoglobin 30 pg (25-35) Mean Corpuscular Hemoglobin Concent 31 g/dL (31-37) Red Cell Distribution Width 20.3 % (11.5-14.5) Platelet Count 342 x10^3/uL (140-400) Neutrophils (%) (Auto) 85 % (31-73) Lymphocytes (%) (Auto) 7 % (24-48) Monocytes (%) (Auto) 6 % (0-9) Eosinophils (%) (Auto) 2 % (0-3) Basophils (%) (Auto) 1 % (0-3) Neutrophils # (Auto) 11.2 x10^3uL (1.8-7.7) Lymphocytes # (Auto) 0.9 x10^3/uL (1.0-4.8) Monocytes # (Auto) 0.7 x10^3/uL (0.0-1.1) Eosinophils # (Auto) 0.2 x10^3/uL (0.0-0.7) Basophils # (Auto) 0.1 x10^3/uL (0.0-0.2) Sodium Level 145 mmol/L (136-145) Potassium Level 4.2 mmol/L (3.5-5.1) Chloride Level 110 mmol/L (98-107) Carbon Dioxide Level 28 mmol/L (21-32) Anion Gap 7 (6-14) Blood Urea Nitrogen 57 mg/dL (7-20) Creatinine 1.4 mg/dL (0.6-1.0) Estimated GFR (Cockcroft-Gault) 37.1 Glucose Level 219 mg/dL (70-99) Calcium Level 8.5 mg/dL (8.5-10.1) Test 01/28/19 08:00 01/28/19 12:42 01/28/19 18:11 01/28/19 23:32 O2 Saturation 96 % (92-99) Arterial Blood pH 7.32 (7.35-7.45) Arterial Blood pCO2 at Patient Temp 50 mmHg (35-46) Arterial Blood pO2 at Patient Temp 85 mmHg (65-108) Arterial Blood HCO3 25 mmol/L (21-28) Arterial Blood Base Excess -2 mmol/L (-3-3) FiO2 45% bipap Glucose (Fingerstick) 195 mg/dL (70-99) 179 mg/dL (70-99) 225 mg/dL (70-99) Test 01/29/19 05:15 01/29/19 05:30 01/29/19 08:30 01/29/19 12:14 White Blood Count 7.5 x10^3/uL (4.0-11.0) Red Blood Count 2.96 x10^6/uL (3.50-5.40) Hemoglobin 9.0 g/dL (12.0-15.5) Hematocrit 28.4 % (36.0-47.0) Mean Corpuscular Volume 96 fL (79-100) Mean Corpuscular Hemoglobin 31 pg (25-35) Mean Corpuscular Hemoglobin Concent 32 g/dL (31-37) Red Cell Distribution Width 19.3 % (11.5-14.5) Platelet Count 201 x10^3/uL (140-400) Neutrophils (%) (Auto) 77 % (31-73) Lymphocytes (%) (Auto) 10 % (24-48) Monocytes (%) (Auto) 8 % (0-9) Eosinophils (%) (Auto) 4 % (0-3) Basophils (%) (Auto) 1 % (0-3) Neutrophils # (Auto) 5.8 x10^3uL (1.8-7.7) Lymphocytes # (Auto) 0.8 x10^3/uL (1.0-4.8) Monocytes # (Auto) 0.6 x10^3/uL (0.0-1.1) Eosinophils # (Auto) 0.3 x10^3/uL (0.0-0.7) Basophils # (Auto) 0.1 x10^3/uL (0.0-0.2) Prothrombin Time 15.0 SEC (11.7-14.0) Prothromb Time International Ratio 1.2 (0.8-1.1) Sodium Level 146 mmol/L (136-145) Potassium Level 4.0 mmol/L (3.5-5.1) Chloride Level 111 mmol/L (98-107) Carbon Dioxide Level 27 mmol/L (21-32) Anion Gap 8 (6-14) Blood Urea Nitrogen 59 mg/dL (7-20) Creatinine 1.4 mg/dL (0.6-1.0) Estimated GFR (Cockcroft-Gault) 37.1 BUN/Creatinine Ratio 42 (6-20) Glucose Level 208 mg/dL (70-99) Calcium Level 8.3 mg/dL (8.5-10.1) Total Bilirubin 0.3 mg/dL (0.2-1.0) Aspartate Amino Transf (AST/SGOT) 36 U/L (15-37) Alanine Aminotransferase (ALT/SGPT) 24 U/L (14-59) Alkaline Phosphatase 347 U/L (46-116) Total Protein 5.5 g/dL (6.4-8.2) Albumin 1.2 g/dL (3.4-5.0) Albumin/Globulin Ratio 0.3 (1.0-1.7) Glucose (Fingerstick) 182 mg/dL (70-99) 214 mg/dL (70-99) O2 Saturation 98 % (92-99) Arterial Blood pH 7.30 (7.35-7.45) Arterial Blood pCO2 at Patient Temp 50 mmHg (35-46) Arterial Blood pO2 at Patient Temp 113 mmHg (65-108) Arterial Blood HCO3 24 mmol/L (21-28) Arterial Blood Base Excess -3 mmol/L (-3-3) FiO2 45% Laboratory Tests Test 01/28/19 18:11 01/28/19 23:32 01/29/19 05:15 01/29/19 05:30 Glucose (Fingerstick) 179 mg/dL (70-99) 225 mg/dL (70-99) 182 mg/dL (70-99) White Blood Count 7.5 x10^3/uL (4.0-11.0) Red Blood Count 2.96 x10^6/uL (3.50-5.40) Hemoglobin 9.0 g/dL (12.0-15.5) Hematocrit 28.4 % (36.0-47.0) Mean Corpuscular Volume 96 fL (79-100) Mean Corpuscular Hemoglobin 31 pg (25-35) Mean Corpuscular Hemoglobin Concent 32 g/dL (31-37) Red Cell Distribution Width 19.3 % (11.5-14.5) Platelet Count 201 x10^3/uL (140-400) Neutrophils (%) (Auto) 77 % (31-73) Lymphocytes (%) (Auto) 10 % (24-48) Monocytes (%) (Auto) 8 % (0-9) Eosinophils (%) (Auto) 4 % (0-3) Basophils (%) (Auto) 1 % (0-3) Neutrophils # (Auto) 5.8 x10^3uL (1.8-7.7) Lymphocytes # (Auto) 0.8 x10^3/uL (1.0-4.8) Monocytes # (Auto) 0.6 x10^3/uL (0.0-1.1) Eosinophils # (Auto) 0.3 x10^3/uL (0.0-0.7) Basophils # (Auto) 0.1 x10^3/uL (0.0-0.2) Prothrombin Time 15.0 SEC (11.7-14.0) Prothromb Time International Ratio 1.2 (0.8-1.1) Sodium Level 146 mmol/L (136-145) Potassium Level 4.0 mmol/L (3.5-5.1) Chloride Level 111 mmol/L (98-107) Carbon Dioxide Level 27 mmol/L (21-32) Anion Gap 8 (6-14) Blood Urea Nitrogen 59 mg/dL (7-20) Creatinine 1.4 mg/dL (0.6-1.0) Estimated GFR (Cockcroft-Gault) 37.1 BUN/Creatinine Ratio 42 (6-20) Glucose Level 208 mg/dL (70-99) Calcium Level 8.3 mg/dL (8.5-10.1) Total Bilirubin 0.3 mg/dL (0.2-1.0) Aspartate Amino Transf (AST/SGOT) 36 U/L (15-37) Alanine Aminotransferase (ALT/SGPT) 24 U/L (14-59) Alkaline Phosphatase 347 U/L (46-116) Total Protein 5.5 g/dL (6.4-8.2) Albumin 1.2 g/dL (3.4-5.0) Albumin/Globulin Ratio 0.3 (1.0-1.7) Test 01/29/19 08:30 01/29/19 12:14 O2 Saturation 98 % (92-99) Arterial Blood pH 7.30 (7.35-7.45) Arterial Blood pCO2 at Patient Temp 50 mmHg (35-46) Arterial Blood pO2 at Patient Temp 113 mmHg (65-108) Arterial Blood HCO3 24 mmol/L (21-28) Arterial Blood Base Excess -3 mmol/L (-3-3) FiO2 45% Glucose (Fingerstick) 214 mg/dL (70-99) Medications Active Scripts Medications Dose Route/Sig Max Daily Dose Days Date Category Vitamin C (Ascorbate Calcium) 500 Mg Tablet 500 Mg PO DAILY 01/15/19 Reported Aspirin 325 Mg Tablet 1 Tab PO DAILY 01/15/19 Reported Coreg (Carvedilol) 3.125 Mg Tablet 3.125 Mg PO BIDWMEALS 01/15/19 Reported Zofran (Ondansetron Hcl) 4 Mg Tablet 4 Mg PO PRN Q6HRS PRN 01/15/19 Reported B-1 (Thiamine HCl) 100 Mg Tablet 100 Mg PO DAILY 01/15/19 Reported Docusate Sodium 100 Mg Capsule 100 Mg PO PRN PRN 01/15/19 Reported Acetaminophen 160 Mg/5 Ml Oral.susp 650 Mg PO PRN Q4HRS PRN 01/15/19 Reported Milk Of Magnesia (Magnesium Hydroxide) 2,400 Mg/10 Ml Oral.susp 2,400 Mg PO PRN PRN 01/15/19 Reported Mirtazapine 7.5 Mg Tablet 7.5 Mg PO QHS 01/15/19 Reported Albuterol Sulfate Neb Soln (Albuterol Sulfate) 2.5 Mg/3 Ml Vial.neb 2.5 Mg NEB BID 01/15/19 Reported Atorvastatin Calcium 10 Mg Tablet 10 Mg PO HS 01/15/19 Reported Lasix (Furosemide) 40 Mg Tablet 40 Mg PO BID 01/15/19 Reported Protonix (Pantoprazole Sodium) 20 Mg Tablet.dr 40 Mg PO DAILY 01/15/19 Reported Amiodarone Hcl 200 Mg Tablet 1 Tab PO DAILY 01/15/19 Reported Seroquel (Quetiapine Fumarate) 25 Mg Tablet 25 Mg PO HS 01/15/19 Reported Tramadol Hcl 50 Mg Tablet 25 Mg PO Q6HRS PRN 01/15/19 Reported Seroquel (Quetiapine Fumarate) 25 Mg Tablet 12.5 Mg PO PRN Q6HRS PRN 01/15/19 Reported Comments CXR 01/22 IMPROVED LEFT EFFUSION/ MILD CHF, NO CHANGE Impression . IMPRESSION: 1. Acute respiratory failure, status post cardiopulmonary arrest, the patient transferred from [facility]. extubated, on canula 2. Acute on chronic systolic heart failure. EF 40% 3. Abnormal x-ray compatible with bilateral airspace disease in the lower lobes, pneumonia./ CHF, left effusion, s/p left tap 01/19 4. Type 2 diabetes. 5. Severe protein malnutrition. 6. Thrombocytopenia. 7. History of pacemaker implantation. 8. Prior history of gastric ulcers. 9. ABNORMAL CXR 10 METABOLIC ENCE POA 11 DYSPHAGIA 12 DIARRHEA 13 HYPERCAPNIA 14.DELIRIUM 15 FEVER Plan . TRACH NEXT WEEK AND PEG TRANSFER TO [facility] ONCE ABOVE DONE BIAPAP ON STARTED PRECEDEX FOR NOW NO NEED FOR INTUBATION ABG NOTED 02 NC ANTIBX PROCALCITONIN NOTED PRESSORS 01/28 D/W FAMILY AT BEDSIDE THEY WISH TO PROCEED WITH TRACH THEY ARE AWARE THAT SHE MAY END UP IN SNU WITH TRACH AND VENT FOR THE REST OF HER LIFE D/W CARD COMPLEX DECISION MAKING CCT 35 MINUTES D/W TEAM GISELLA MCNEAL MD January 29, 2019 15:35
[2019-01-29] MEDS: ATORVASTATIN CALCIUM 10 MG TABLET. PO SCH (20:35)
[2019-01-30] VITALS (12 sets, daily range): BP systolic 91–112; BP diastolic 43–61
[2019-01-30] MEDS: INSULIN LISPRO 300 UNITS/3 ML INSULN.PEN. SQ SCH ×2 (01:33→06:35)
[2019-01-30] MEDS: DEXMEDETOMIDINE 200 MCG in IV NORMAL SALINE 50ML 48 ML IV PRN ×3 (01:34→07:33)
[2019-01-30] MEDS: PIPERACILLIN/TAZOBACTAM 3.375 GM in IV NORMAL SALINE 50ML 50 ML IV SCH ×3 (01:34→11:46)
[2019-01-30] MEDS: NOREPINEPHRIN 8MG/250ML PREMIX 250 ML IV PRN (05:53)
[2019-01-30 05:58] LABS: BASO # 0.1 x10^3/uL (0.0-0.2); BASO % 1 % (0-3); EOS # 0.3 x10^3/uL (0.0-0.7); EOS % 4 % (0-3); HEMATOCRIT 30.4 % (36.0-47.0); HEMOGLOBIN 9.6 g/dL (12.0-15.5); LYMPH % 12 % (24-48); MEAN CORPUSCULAR HEMOGLOBIN 30 pg (25-35); MEAN CORPUSCULAR HGB CONC 32 g/dL (31-37); MEAN CORPUSCULAR VOLUME 96 fL (79-100); MONO # 0.6 x10^3/uL (0.0-1.1); MONO % 7 % (0-9); NEUT # 6.6 x10^3uL (1.8-7.7); NEUT % 77 % (31-73); PLATELET COUNT 205 x10^3/uL (140-400); RED BLOOD COUNT 3.17 x10^6/uL (3.50-5.40); RED CELL DISTRIBUTION WIDTH 18.9 % (11.5-14.5); WHITE BLOOD COUNT 8.5 x10^3/uL (4.0-11.0)
[2019-01-30 06:11] LABS: CALCIUM 8.3 mg/dL (8.5-10.1); CREATININE 1.3 mg/dL (0.6-1.0); GFR 40.4
--- NOTE | 2019-01-30 08:36 | PDOC ---
PULMONARY PROGRESS NOTES Subjective EXTUBATED 01/20 PT TRANSFER BACK TO ICU FOR HYPOXEMIA AND DELIRIUM FEVER 01/27 01/29 ON BIPAP SEDATED WITH PRECEDEX Vitals Vital Signs Date Time Temp Pulse Resp B/P (MAP) Pulse Ox O2 Delivery O2 Flow Rate FiO2 01/30/19 06:15 65 22 91/43 (59) 99 BiPAP/CPAP 01/30/19 04:00 98.0 3.0 98.0 General: Confused Lungs: Clear Cardiovascular: S1, S2 Abdomen: Soft, Non-tender Extremities: Other (EDEMA) Skin: Warm Labs Laboratory Tests Test 01/28/19 12:42 01/28/19 18:11 01/28/19 23:32 01/29/19 05:15 Glucose (Fingerstick) 195 mg/dL (70-99) 179 mg/dL (70-99) 225 mg/dL (70-99) White Blood Count 7.5 x10^3/uL (4.0-11.0) Red Blood Count 2.96 x10^6/uL (3.50-5.40) Hemoglobin 9.0 g/dL (12.0-15.5) Hematocrit 28.4 % (36.0-47.0) Mean Corpuscular Volume 96 fL (79-100) Mean Corpuscular Hemoglobin 31 pg (25-35) Mean Corpuscular Hemoglobin Concent 32 g/dL (31-37) Red Cell Distribution Width 19.3 % (11.5-14.5) Platelet Count 201 x10^3/uL (140-400) Neutrophils (%) (Auto) 77 % (31-73) Lymphocytes (%) (Auto) 10 % (24-48) Monocytes (%) (Auto) 8 % (0-9) Eosinophils (%) (Auto) 4 % (0-3) Basophils (%) (Auto) 1 % (0-3) Neutrophils # (Auto) 5.8 x10^3uL (1.8-7.7) Lymphocytes # (Auto) 0.8 x10^3/uL (1.0-4.8) Monocytes # (Auto) 0.6 x10^3/uL (0.0-1.1) Eosinophils # (Auto) 0.3 x10^3/uL (0.0-0.7) Basophils # (Auto) 0.1 x10^3/uL (0.0-0.2) Prothrombin Time 15.0 SEC (11.7-14.0) Prothromb Time International Ratio 1.2 (0.8-1.1) Sodium Level 146 mmol/L (136-145) Potassium Level 4.0 mmol/L (3.5-5.1) Chloride Level 111 mmol/L (98-107) Carbon Dioxide Level 27 mmol/L (21-32) Anion Gap 8 (6-14) Blood Urea Nitrogen 59 mg/dL (7-20) Creatinine 1.4 mg/dL (0.6-1.0) Estimated GFR (Cockcroft-Gault) 37.1 BUN/Creatinine Ratio 42 (6-20) Glucose Level 208 mg/dL (70-99) Calcium Level 8.3 mg/dL (8.5-10.1) Total Bilirubin 0.3 mg/dL (0.2-1.0) Aspartate Amino Transf (AST/SGOT) 36 U/L (15-37) Alanine Aminotransferase (ALT/SGPT) 24 U/L (14-59) Alkaline Phosphatase 347 U/L (46-116) Total Protein 5.5 g/dL (6.4-8.2) Albumin 1.2 g/dL (3.4-5.0) Albumin/Globulin Ratio 0.3 (1.0-1.7) Test 01/29/19 05:30 01/29/19 08:30 01/29/19 12:14 01/29/19 18:01 Glucose (Fingerstick) 182 mg/dL (70-99) 214 mg/dL (70-99) 189 mg/dL (70-99) O2 Saturation 98 % (92-99) Arterial Blood pH 7.30 (7.35-7.45) Arterial Blood pCO2 at Patient Temp 50 mmHg (35-46) Arterial Blood pO2 at Patient Temp 113 mmHg (65-108) Arterial Blood HCO3 24 mmol/L (21-28) Arterial Blood Base Excess -3 mmol/L (-3-3) FiO2 45% Test 01/29/19 21:20 01/30/19 01:30 01/30/19 05:45 01/30/19 06:31 Glucose (Fingerstick) 170 mg/dL (70-99) 153 mg/dL (70-99) 184 mg/dL (70-99) White Blood Count 8.5 x10^3/uL (4.0-11.0) Red Blood Count 3.17 x10^6/uL (3.50-5.40) Hemoglobin 9.6 g/dL (12.0-15.5) Hematocrit 30.4 % (36.0-47.0) Mean Corpuscular Volume 96 fL (79-100) Mean Corpuscular Hemoglobin 30 pg (25-35) Mean Corpuscular Hemoglobin Concent 32 g/dL (31-37) Red Cell Distribution Width 18.9 % (11.5-14.5) Platelet Count 205 x10^3/uL (140-400) Neutrophils (%) (Auto) 77 % (31-73) Lymphocytes (%) (Auto) 12 % (24-48) Monocytes (%) (Auto) 7 % (0-9) Eosinophils (%) (Auto) 4 % (0-3) Basophils (%) (Auto) 1 % (0-3) Neutrophils # (Auto) 6.6 x10^3uL (1.8-7.7) Lymphocytes # (Auto) 1.0 x10^3/uL (1.0-4.8) Monocytes # (Auto) 0.6 x10^3/uL (0.0-1.1) Eosinophils # (Auto) 0.3 x10^3/uL (0.0-0.7) Basophils # (Auto) 0.1 x10^3/uL (0.0-0.2) Sodium Level 145 mmol/L (136-145) Potassium Level 4.0 mmol/L (3.5-5.1) Chloride Level 110 mmol/L (98-107) Carbon Dioxide Level 28 mmol/L (21-32) Anion Gap 7 (6-14) Blood Urea Nitrogen 60 mg/dL (7-20) Creatinine 1.3 mg/dL (0.6-1.0) Estimated GFR (Cockcroft-Gault) 40.4 Glucose Level 224 mg/dL (70-99) Calcium Level 8.3 mg/dL (8.5-10.1) Magnesium Level 2.0 mg/dL (1.8-2.4) Laboratory Tests Test 01/29/19 12:14 01/29/19 18:01 01/29/19 21:20 01/30/19 01:30 Glucose (Fingerstick) 214 mg/dL (70-99) 189 mg/dL (70-99) 170 mg/dL (70-99) 153 mg/dL (70-99) Test 01/30/19 05:45 01/30/19 06:31 White Blood Count 8.5 x10^3/uL (4.0-11.0) Red Blood Count 3.17 x10^6/uL (3.50-5.40) Hemoglobin 9.6 g/dL (12.0-15.5) Hematocrit 30.4 % (36.0-47.0) Mean Corpuscular Volume 96 fL (79-100) Mean Corpuscular Hemoglobin 30 pg (25-35) Mean Corpuscular Hemoglobin Concent 32 g/dL (31-37) Red Cell Distribution Width 18.9 % (11.5-14.5) Platelet Count 205 x10^3/uL (140-400) Neutrophils (%) (Auto) 77 % (31-73) Lymphocytes (%) (Auto) 12 % (24-48) Monocytes (%) (Auto) 7 % (0-9) Eosinophils (%) (Auto) 4 % (0-3) Basophils (%) (Auto) 1 % (0-3) Neutrophils # (Auto) 6.6 x10^3uL (1.8-7.7) Lymphocytes # (Auto) 1.0 x10^3/uL (1.0-4.8) Monocytes # (Auto) 0.6 x10^3/uL (0.0-1.1) Eosinophils # (Auto) 0.3 x10^3/uL (0.0-0.7) Basophils # (Auto) 0.1 x10^3/uL (0.0-0.2) Sodium Level 145 mmol/L (136-145) Potassium Level 4.0 mmol/L (3.5-5.1) Chloride Level 110 mmol/L (98-107) Carbon Dioxide Level 28 mmol/L (21-32) Anion Gap 7 (6-14) Blood Urea Nitrogen 60 mg/dL (7-20) Creatinine 1.3 mg/dL (0.6-1.0) Estimated GFR (Cockcroft-Gault) 40.4 Glucose Level 224 mg/dL (70-99) Calcium Level 8.3 mg/dL (8.5-10.1) Magnesium Level 2.0 mg/dL (1.8-2.4) Glucose (Fingerstick) 184 mg/dL (70-99) Medications Active Scripts Medications Dose Route/Sig Max Daily Dose Days Date Category Vitamin C (Ascorbate Calcium) 500 Mg Tablet 500 Mg PO DAILY 01/15/19 Reported Aspirin 325 Mg Tablet 1 Tab PO DAILY 01/15/19 Reported Coreg (Carvedilol) 3.125 Mg Tablet 3.125 Mg PO BIDWMEALS 01/15/19 Reported Zofran (Ondansetron Hcl) 4 Mg Tablet 4 Mg PO PRN Q6HRS PRN 01/15/19 Reported B-1 (Thiamine HCl) 100 Mg Tablet 100 Mg PO DAILY 01/15/19 Reported Docusate Sodium 100 Mg Capsule 100 Mg PO PRN PRN 01/15/19 Reported Acetaminophen 160 Mg/5 Ml Oral.susp 650 Mg PO PRN Q4HRS PRN 01/15/19 Reported Milk Of Magnesia (Magnesium Hydroxide) 2,400 Mg/10 Ml Oral.susp 2,400 Mg PO PRN PRN 01/15/19 Reported Mirtazapine 7.5 Mg Tablet 7.5 Mg PO QHS 01/15/19 Reported Albuterol Sulfate Neb Soln (Albuterol Sulfate) 2.5 Mg/3 Ml Vial.neb 2.5 Mg NEB BID 01/15/19 Reported Atorvastatin Calcium 10 Mg Tablet 10 Mg PO HS 01/15/19 Reported Lasix (Furosemide) 40 Mg Tablet 40 Mg PO BID 01/15/19 Reported Protonix (Pantoprazole Sodium) 20 Mg Tablet.dr 40 Mg PO DAILY 01/15/19 Reported Amiodarone Hcl 200 Mg Tablet 1 Tab PO DAILY 01/15/19 Reported Seroquel (Quetiapine Fumarate) 25 Mg Tablet 25 Mg PO HS 01/15/19 Reported Tramadol Hcl 50 Mg Tablet 25 Mg PO Q6HRS PRN 01/15/19 Reported Seroquel (Quetiapine Fumarate) 25 Mg Tablet 12.5 Mg PO PRN Q6HRS PRN 01/15/19 Reported Comments CXR 01/22 IMPROVED LEFT EFFUSION/ MILD CHF, NO CHANGE Impression . IMPRESSION: 1. Acute respiratory failure, status post cardiopulmonary arrest, the patient transferred from [facility]. extubated, on canula 2. Acute on chronic systolic heart failure. EF 40% 3. Abnormal x-ray compatible with bilateral airspace disease in the lower lobes, pneumonia./ CHF, left effusion, s/p left tap 01/19 4. Type 2 diabetes. 5. Severe protein malnutrition. 6. Thrombocytopenia. 7. History of pacemaker implantation. 8. Prior history of gastric ulcers. 9. ABNORMAL CXR 10 METABOLIC ENCE POA 11 DYSPHAGIA 12 DIARRHEA 13 HYPERCAPNIA 14.DELIRIUM 15 FEVER Plan . TRACH NEXT WEEK AND PEG TRANSFER TO [facility] ONCE ABOVE DONE BIAPAP ON STARTED PRECEDEX FOR NOW NO NEED FOR INTUBATION ABG NOTED 02 NC ANTIBX PROCALCITONIN NOTED PRESSORS 01/28 D/W FAMILY AT BEDSIDE THEY WISH TO PROCEED WITH TRACH THEY ARE AWARE THAT SHE MAY END UP IN SNU WITH TRACH AND VENT FOR THE REST OF HER LIFE D/W CARD COMPLEX DECISION MAKING CCT 35 MINUTES D/W TEAM GISELLA MCNEAL MD January 30, 2019 08:36
--- NOTE | 2019-01-30 08:57 | RAD ---
Single view chest dated 01/30/2019. Comparison made to an 01/26/2019. CLINICAL INDICATION: Hypoxia. FINDINGS: Single semiupright portable exam performed. Heart and mediastinal contours are stable. NG tube and left-sided PICC in place, unchanged. There is perihilar airspace disease with blunting of the costophrenic sulci, unchanged. No pneumothorax. No new infiltrate. IMPRESSION: Bilateral airspace disease and pleural effusions, similar to prior exam Electronically signed by: Holden Oliva MD (01/30/2019 8:54 AM) [id number]
--- NOTE | 2019-01-30 09:27 | PDOC ---
Infectious Disease Note Subjective Subjective More alert, talking some Currently on 3L O2 Levophed off and on + diarrhea Tube feedings @ 40 ml/hr No fevers last 48 hours ROS ROS per HPI Vital Sign Vital Signs Vital Signs Date Time Temp Pulse Resp B/P (MAP) Pulse Ox O2 Delivery O2 Flow Rate FiO2 01/30/19 08:00 Nasal Cannula 3.0 01/30/19 06:15 65 22 91/43 (59) 99 01/30/19 04:00 98.0 98.0 Physical Exam PHYSICAL EXAM GENERAL: Propped up in bed, alert, weak appearing, coop HEENT: CLARIBEL. NGT, Oropharynx dry NECK: Supple, LUNGS: + rhonchi HEART: S1, S2 regular ABDOMEN: Obese, soft, NT, BS active, rectal tube in place : Kahn in place (01/29) EXTREMITIES: Generalized trace edema, no cyanosis SKIN: No rash. sacrococcygeal area of stage 3 decubitus. NEUROLOGIC: Alert, responding appropriately LUE-PICC clean Labs Lab Laboratory Tests Test 01/29/19 12:14 01/29/19 18:01 01/29/19 21:20 01/30/19 01:30 Glucose (Fingerstick) 214 mg/dL (70-99) 189 mg/dL (70-99) 170 mg/dL (70-99) 153 mg/dL (70-99) Test 01/30/19 05:45 01/30/19 06:31 White Blood Count 8.5 x10^3/uL (4.0-11.0) Red Blood Count 3.17 x10^6/uL (3.50-5.40) Hemoglobin 9.6 g/dL (12.0-15.5) Hematocrit 30.4 % (36.0-47.0) Mean Corpuscular Volume 96 fL (79-100) Mean Corpuscular Hemoglobin 30 pg (25-35) Mean Corpuscular Hemoglobin Concent 32 g/dL (31-37) Red Cell Distribution Width 18.9 % (11.5-14.5) Platelet Count 205 x10^3/uL (140-400) Neutrophils (%) (Auto) 77 % (31-73) Lymphocytes (%) (Auto) 12 % (24-48) Monocytes (%) (Auto) 7 % (0-9) Eosinophils (%) (Auto) 4 % (0-3) Basophils (%) (Auto) 1 % (0-3) Neutrophils # (Auto) 6.6 x10^3uL (1.8-7.7) Lymphocytes # (Auto) 1.0 x10^3/uL (1.0-4.8) Monocytes # (Auto) 0.6 x10^3/uL (0.0-1.1) Eosinophils # (Auto) 0.3 x10^3/uL (0.0-0.7) Basophils # (Auto) 0.1 x10^3/uL (0.0-0.2) Sodium Level 145 mmol/L (136-145) Potassium Level 4.0 mmol/L (3.5-5.1) Chloride Level 110 mmol/L (98-107) Carbon Dioxide Level 28 mmol/L (21-32) Anion Gap 7 (6-14) Blood Urea Nitrogen 60 mg/dL (7-20) Creatinine 1.3 mg/dL (0.6-1.0) Estimated GFR (Cockcroft-Gault) 40.4 Glucose Level 224 mg/dL (70-99) Calcium Level 8.3 mg/dL (8.5-10.1) Magnesium Level 2.0 mg/dL (1.8-2.4) Glucose (Fingerstick) 184 mg/dL (70-99) CXR, 01/30 Bilateral airspace disease and pleural effusions, similar to prior exam Micro 01/27. BLOOD CULTURE Preliminary NO GROWTH AFTER 2 DAY Objective Assessment Fever, better 01/27 BC NGTD, UA + pyuria and yeast, Kahn change 01/29 Leucocytosis, better Left loculated effusion, s/p thoracentesis on 01/19. Cultures neg. sputum neg 01/20 Respiratory failure s/p extubation, now on BiPAP Circulatory failure CHF/Cardiomyopathy DM A fib, on amiodarone Stage 3 , sacral ulcer Anemia s/p PRBCs Yeast in urine, 01/16 & 01/27 Dysphagia Encephalopathy Plan Plan of Care DID NOT SEE TRANSFERED PRIOR TO MY ARRIVAL Zyvox and Zosyn, restarted on 01/27 local wound care f/u cultures D/w family D/w RN Condition guarded Prognosis poor Attending Co-Sign Attending Co-Sign The patient was seen and interviewed as well as examined at the bedside. The chart was reviewed. The case was discussed. Agree with the plan of care. MELECIO AG APRN January 30, 2019 09:27 RAZA JOHNSON MD January 30, 2019 13:07
--- NOTE | 2019-01-30 09:30 | NUR ---
Wound care: Patient seen per wound care follow up. See wound assessment. Patient has unstageable pressure ulcer to coccyx. Wound cleansed and assessed. Recommendations for medi-honey, Xeroform gauze, foam dressing. Dressing applied and patient tolerated well. No other wounds noted upon complete head to toe assessment. Patient repositioned using wedge and turned to right side. Bilateral heels floated. Dressing change instructions left in room. Family at bedside. Patient is on ICU bed at this time. Spoke with RN regarding POC. Will follow patient regarding wound care. Call light in reach, bed lowered.
--- NOTE | 2019-01-30 09:38 | PDOC ---
PROGRESS NOTES Subjective Subjective she is alertrand comfortable currently off of bipap but on bipap at hs and prn. on iv precedex. tolerating NG tube feeding. family agreeable to trach and peg . Objective Objective Vital Signs Date Time Temp Pulse Resp B/P (MAP) Pulse Ox O2 Delivery O2 Flow Rate FiO2 01/30/19 08:00 Nasal Cannula 3.0 01/30/19 06:15 65 22 91/43 (59) 99 01/30/19 04:00 98.0 98.0 Intake and Output 01/30/19 07:00 Intake Total 2922 ml Output Total 1520 ml Balance 1402 ml IV Total 1228 ml Tube Feeding 1519 ml Other 175 ml Output Urine Total 1520 ml Physical Exam Abdomen: Soft Heart: Regular rate, Normal S1, Normal S2 Extremities: No edema General: Alert HEENT: Atraumatic Lungs: Clear to auscultation Neuro: Normal speech Psych/Mental Status: Mood NL Skin: No rashes Assessment Assessment Problemsrecurrent respiratory arrest. 5. Acute kidney injury most likely secondary to the cardiopulmonary arrest resolved 6. Hypotension on levophed 7. Elevated liver function tests improved 8. Nonischemic cardiomyopathy with improvement of left ventricular ejection fraction 15-20% improved to 40%. 9. Acute on chronic hypoxic and hypercapnic respiratory failure on bipap 10. sepsis with shock 11. Acute on chronic systolic congestive heart failure compensated clinically 12. Paroxysmal atrial fibrillation, but not a candidate for Pradaxa due to recent gastrointestinal bleed in 06/2018 from gastric ulcer. 13. Oropharyngeal dysphagia 14. Diabetes mellitus type 2. 15. Mild coronary artery disease. suspected sleep apnea. needs out patient sleep study and hs bipap metabolic and toxic encephalopathy improved fever leukocytosis Medical Problems: (1) Cardiac arrest Status: Acute (2) HCAP (healthcare-associated pneumonia) Status: Acute (3) Liver failure Status: Acute Plan Plan of Care dismiss to LTAV today tracheostomy and PEG to be done after transfer to [facility]. family concurs with both procedures continue zyvox and zosyn continue NG feedings continue sq heparin Comment Review of Relevant I have reviewed the following items kristen (where applicable) has been applied. Labs Laboratory Tests Test 01/28/19 12:42 01/28/19 18:11 01/28/19 23:32 01/29/19 05:15 Glucose (Fingerstick) 195 mg/dL (70-99) 179 mg/dL (70-99) 225 mg/dL (70-99) White Blood Count 7.5 x10^3/uL (4.0-11.0) Red Blood Count 2.96 x10^6/uL (3.50-5.40) Hemoglobin 9.0 g/dL (12.0-15.5) Hematocrit 28.4 % (36.0-47.0) Mean Corpuscular Volume 96 fL (79-100) Mean Corpuscular Hemoglobin 31 pg (25-35) Mean Corpuscular Hemoglobin Concent 32 g/dL (31-37) Red Cell Distribution Width 19.3 % (11.5-14.5) Platelet Count 201 x10^3/uL (140-400) Neutrophils (%) (Auto) 77 % (31-73) Lymphocytes (%) (Auto) 10 % (24-48) Monocytes (%) (Auto) 8 % (0-9) Eosinophils (%) (Auto) 4 % (0-3) Basophils (%) (Auto) 1 % (0-3) Neutrophils # (Auto) 5.8 x10^3uL (1.8-7.7) Lymphocytes # (Auto) 0.8 x10^3/uL (1.0-4.8) Monocytes # (Auto) 0.6 x10^3/uL (0.0-1.1) Eosinophils # (Auto) 0.3 x10^3/uL (0.0-0.7) Basophils # (Auto) 0.1 x10^3/uL (0.0-0.2) Prothrombin Time 15.0 SEC (11.7-14.0) Prothromb Time International Ratio 1.2 (0.8-1.1) Sodium Level 146 mmol/L (136-145) Potassium Level 4.0 mmol/L (3.5-5.1) Chloride Level 111 mmol/L (98-107) Carbon Dioxide Level 27 mmol/L (21-32) Anion Gap 8 (6-14) Blood Urea Nitrogen 59 mg/dL (7-20) Creatinine 1.4 mg/dL (0.6-1.0) Estimated GFR (Cockcroft-Gault) 37.1 BUN/Creatinine Ratio 42 (6-20) Glucose Level 208 mg/dL (70-99) Calcium Level 8.3 mg/dL (8.5-10.1) Total Bilirubin 0.3 mg/dL (0.2-1.0) Aspartate Amino Transf (AST/SGOT) 36 U/L (15-37) Alanine Aminotransferase (ALT/SGPT) 24 U/L (14-59) Alkaline Phosphatase 347 U/L (46-116) Total Protein 5.5 g/dL (6.4-8.2) Albumin 1.2 g/dL (3.4-5.0) Albumin/Globulin Ratio 0.3 (1.0-1.7) Test 01/29/19 05:30 01/29/19 08:30 01/29/19 12:14 01/29/19 18:01 Glucose (Fingerstick) 182 mg/dL (70-99) 214 mg/dL (70-99) 189 mg/dL (70-99) O2 Saturation 98 % (92-99) Arterial Blood pH 7.30 (7.35-7.45) Arterial Blood pCO2 at Patient Temp 50 mmHg (35-46) Arterial Blood pO2 at Patient Temp 113 mmHg (65-108) Arterial Blood HCO3 24 mmol/L (21-28) Arterial Blood Base Excess -3 mmol/L (-3-3) FiO2 45% Test 01/29/19 21:20 01/30/19 01:30 01/30/19 05:45 01/30/19 06:31 Glucose (Fingerstick) 170 mg/dL (70-99) 153 mg/dL (70-99) 184 mg/dL (70-99) White Blood Count 8.5 x10^3/uL (4.0-11.0) Red Blood Count 3.17 x10^6/uL (3.50-5.40) Hemoglobin 9.6 g/dL (12.0-15.5) Hematocrit 30.4 % (36.0-47.0) Mean Corpuscular Volume 96 fL (79-100) Mean Corpuscular Hemoglobin 30 pg (25-35) Mean Corpuscular Hemoglobin Concent 32 g/dL (31-37) Red Cell Distribution Width 18.9 % (11.5-14.5) Platelet Count 205 x10^3/uL (140-400) Neutrophils (%) (Auto) 77 % (31-73) Lymphocytes (%) (Auto) 12 % (24-48) Monocytes (%) (Auto) 7 % (0-9) Eosinophils (%) (Auto) 4 % (0-3) Basophils (%) (Auto) 1 % (0-3) Neutrophils # (Auto) 6.6 x10^3uL (1.8-7.7) Lymphocytes # (Auto) 1.0 x10^3/uL (1.0-4.8) Monocytes # (Auto) 0.6 x10^3/uL (0.0-1.1) Eosinophils # (Auto) 0.3 x10^3/uL (0.0-0.7) Basophils # (Auto) 0.1 x10^3/uL (0.0-0.2) Sodium Level 145 mmol/L (136-145) Potassium Level 4.0 mmol/L (3.5-5.1) Chloride Level 110 mmol/L (98-107) Carbon Dioxide Level 28 mmol/L (21-32) Anion Gap 7 (6-14) Blood Urea Nitrogen 60 mg/dL (7-20) Creatinine 1.3 mg/dL (0.6-1.0) Estimated GFR (Cockcroft-Gault) 40.4 Glucose Level 224 mg/dL (70-99) Calcium Level 8.3 mg/dL (8.5-10.1) Magnesium Level 2.0 mg/dL (1.8-2.4) Laboratory Tests Test 01/29/19 12:14 01/29/19 18:01 01/29/19 21:20 01/30/19 01:30 Glucose (Fingerstick) 214 mg/dL (70-99) 189 mg/dL (70-99) 170 mg/dL (70-99) 153 mg/dL (70-99) Test 01/30/19 05:45 01/30/19 06:31 White Blood Count 8.5 x10^3/uL (4.0-11.0) Red Blood Count 3.17 x10^6/uL (3.50-5.40) Hemoglobin 9.6 g/dL (12.0-15.5) Hematocrit 30.4 % (36.0-47.0) Mean Corpuscular Volume 96 fL (79-100) Mean Corpuscular Hemoglobin 30 pg (25-35) Mean Corpuscular Hemoglobin Concent 32 g/dL (31-37) Red Cell Distribution Width 18.9 % (11.5-14.5) Platelet Count 205 x10^3/uL (140-400) Neutrophils (%) (Auto) 77 % (31-73) Lymphocytes (%) (Auto) 12 % (24-48) Monocytes (%) (Auto) 7 % (0-9) Eosinophils (%) (Auto) 4 % (0-3) Basophils (%) (Auto) 1 % (0-3) Neutrophils # (Auto) 6.6 x10^3uL (1.8-7.7) Lymphocytes # (Auto) 1.0 x10^3/uL (1.0-4.8) Monocytes # (Auto) 0.6 x10^3/uL (0.0-1.1) Eosinophils # (Auto) 0.3 x10^3/uL (0.0-0.7) Basophils # (Auto) 0.1 x10^3/uL (0.0-0.2) Sodium Level 145 mmol/L (136-145) Potassium Level 4.0 mmol/L (3.5-5.1) Chloride Level 110 mmol/L (98-107) Carbon Dioxide Level 28 mmol/L (21-32) Anion Gap 7 (6-14) Blood Urea Nitrogen 60 mg/dL (7-20) Creatinine 1.3 mg/dL (0.6-1.0) Estimated GFR (Cockcroft-Gault) 40.4 Glucose Level 224 mg/dL (70-99) Calcium Level 8.3 mg/dL (8.5-10.1) Magnesium Level 2.0 mg/dL (1.8-2.4) Glucose (Fingerstick) 184 mg/dL (70-99) Microbiology 01/27/19 Blood Culture - Preliminary, Resulted NO GROWTH AFTER 2 DAYS 01/19/19 Anaerobic/Aerobic Culture - Final, Complete 01/19/19 Anaerobic Culture Result 1 (BASIA) - Final, Complete 01/19/19 Aerobic Culture - Final, Complete 01/19/19 Aerobic Culture Result 1 (BASIA) - Final, Complete 01/19/19 Gram Stain - Final, Complete 01/19/19 Gram Stain Result 1 (BASIA) - Final, Complete 01/19/19 Gram Stain Result 2 (BASIA) - Final, Complete 01/20/19 - Final, Complete 01/20/19 - Final, Complete 01/20/19 - Final, Complete 01/20/19 Gram Stain Evaluation - Final, Complete 01/20/19 Sputum Culture - Final, Complete 01/20/19 Sputum Result 1 - Final, Complete 01/19/19 AFB Specimen Processing Tissue - Final, Resulted 01/19/19 Acid Fast Bacilli Culture, Resulted Pending 01/19/19 Gram Stain - Final, Resulted 01/16/19 Urine Culture - Final, Complete 01/16/19 Urine Culture Result 1 (BASIA) - Final, Complete Medications Current Medications Propofol (Diprivan) 200 mg 1X ONCE IV ; Start 01/15/19 at 15:00; Stop 01/15/19 at 15:06; Status DC Midazolam HCl (Versed) 5 mg 1X ONCE IV Last administered on 01/15/19at 15:59; Start 01/15/19 at 15:00; Stop 01/15/19 at 15:01; Status DC Propofol 50 ml @ As Directed STK-MED ONCE IV ; Start 01/15/19 at 15:02; Stop 01/15/19 at 15:03; Status DC Midazolam HCl 100 ml @ 0 mls/hr 1X ONCE IV Last administered on 01/15/19at 15:19; Start 01/15/19 at 15:15; Stop 01/15/19 at 15:16; Status DC Calcium Gluconate (Calcium Gluconate) 1,000 mg 1X ONCE IVP Last administered on 01/15/19at 15:58; Start 01/15/19 at 15:30; Stop 01/15/19 at 15:31; Status DC Norepinephrine Bitartrate 250 ml @ 1.875 mls/ hr CONT PRN IV SEE I/O RECORD Last administered on 01/20/19at 04:15; Start 01/15/19 at 17:00; Stop 01/22/19 at 10:32; Status DC Piperacillin Sod/ Tazobactam Sod (Zosyn Per Pharmacy) 1 each PRN DAILY PRN MC SEE COMMENTS; Start 01/15/19 at 17:15; Stop 01/24/19 at 10:37; Status DC Albuterol Sulfate (Ventolin Neb Soln) 2.5 mg PRN Q4HRS PRN NEB SHORTNESS OF BREATH; Start 01/15/19 at 17:15 Midazolam HCl 100 ml @ 5 mls/hr CONT PRN IV SEE I/O RECORD Last administered on 01/19/19at 05:03; Start 01/15/19 at 17:15; Stop 01/20/19 at 09:46; Status DC Fentanyl Citrate (Fentanyl 2ml Vial) 50 mcg PRN Q2HR PRN IV PAIN Last administered on 01/25/19at 14:48; Start 01/15/19 at 17:15; Stop 01/27/19 at 10:14; Status DC Piperacillin Sod/ Tazobactam Sod 2.25 gm/Sodium Chloride 50 ml @ 100 mls/hr Q6HRS IV Last administered on 01/19/19at 05:59; Start 01/15/19 at 18:00; Stop 01/19/19 at 11:25; Status DC Albuterol Sulfate (Ventolin Neb Soln) 2.5 mg RTBID NEB Last administered on at 20:04; Start 01/15/19 at 20:00 Amiodarone HCl (Cordarone) 200 mg DAILY PO Last administered on 01/29/19at 08:52; Start 01/16/19 at 09:00 Aspirin (Dieudonne Aspirin) 325 mg DAILY PO Last administered on 01/29/19at 09:00; Start 01/16/19 at 09:00 Atorvastatin Calcium (Lipitor) 10 mg HS PO Last administered on 01/29/19at 20:35; Start 01/15/19 at 21:00 Carvedilol (Coreg) 3.125 mg BIDWMEALS PO ; Start 01/15/19 at 18:30; Stop 01/18/19 at 14:39; Status DC Docusate Sodium (Colace) 100 mg PRN DAILY PRN PO hard stools; Start 01/15/19 at 17:15 Furosemide (Lasix) 40 mg BID94 PO ; Start 01/16/19 at 09:00; Stop 01/16/19 at 10:50; Status DC Mirtazapine (Remeron) 7.5 mg DAILY PO ; Start 01/16/19 at 09:00; Stop 01/16/19 at 09:00; Status DC Tramadol HCl (Ultram) 25 mg PRN Q6HRS PRN PO MODERATE PAIN Last administered on 01/23/19 20:14; Start 01/15/19 at 17:15; Stop 01/25/19 at 14:40; Status DC Acetaminophen (Tylenol) 650 mg PRN Q4HRS PRN PO FEVER Last administered on 01/15/19at 20:57; Start 01/15/19 at 17:15; Stop 01/16/19 at 08:07; Status DC Ascorbic Acid (Vitamin C) 500 mg DAILY PO Last administered on 01/29/19 08:52; Start 01/16/19 at 09:00 Magnesium Hydroxide (Milk Of Magnesia) 2,400 mg PRN DAILY PRN PO CONSTIPATION; Start 01/15/19 at 18:45 Ondansetron HCl (Zofran Odt) 4 mg PRN Q6HRS PRN PO NAUSEA/VOMITING; Start 01/15/19 at 18:45 Pantoprazole Sodium (Protonix) 40 mg DAILYAC PO Last administered on 01/18/19at 07:52; Start 01/16/19 at 07:30; Stop 01/18/19 at 08:02; Status DC Quetiapine Fumarate (SEROquel) 12.5 mg PRN Q6HRS PRN PO AGITATION Last administered on 01/25/19 08:29; Start 01/15/19 at 17:15; Stop 01/25/19 at 14:40; Status DC Quetiapine Fumarate (SEROquel) 25 mg QHS PO Last administered on 01/17/19 21:08; Start 01/15/19 at 21:00; Stop 01/18/19 at 14:39; Status DC Thiamine Mononitrate (Vitamin B-1) 100 mg DAILY PO Last administered on 01/29/19 08:52; Start 01/16/19 at 09:00 Vancomycin HCl (Vanco Per Pharmacy) 1 each PRN DAILY PRN MC SEE COMMENTS Last administered on 01/15/19at 21:10; Start 01/15/19 at 17:45; Stop 01/16/19 at 08:06; Status DC Piperacillin Sod/ Tazobactam Sod (Zosyn Per Pharmacy) 1 each PRN DAILY PRN MC SEE COMMENTS; Start 01/15/19 at 17:45; Status UNV Insulin Human Lispro (HumaLOG) 0-5 UNITS TIDWMEALS SQ ; Start 01/16/19 at 08:00; Stop 01/16/19 at 08:00; Status DC Dextrose (Dextrose 50%-Water Syringe) 12.5 gm PRN Q15MIN PRN IV SEE COMMENTS; Start 01/15/19 at 17:45 Vancomycin HCl 2 gm/Sodium Chloride 500 ml @ 250 mls/hr 1X ONCE IV Last administered on 01/15/19at 20:56; Start 01/15/19 at 20:00; Stop 01/15/19 at 21:59; Status DC Insulin Human Lispro (HumaLOG) 0-5 UNITS Q6HRS SQ Last administered on 01/30/19at 06:35; Start 01/16/19 at 00:00 Vancomycin HCl 1.25 gm/Sodium Chloride 250 ml @ 167 mls/hr Q24H IV ; Start 01/16/19 at 21:00; Stop 01/16/19 at 21:00; Status DC Vancomycin HCl (Vancomycin Trough Level) 1 each 1X ONCE MC ; Start 01/17/19 at 20:30; Stop 01/17/19 at 20:31; Status Cancel Mirtazapine (Remeron) 7.5 mg QHS PO Last administered on 01/25/19at 21:07; Start 01/16/19 at 21:00; Stop 01/26/19 at 16:44; Status DC Linezolid/Dextrose 300 ml @ 300 mls/hr Q12HR IV Last administered on 01/19/19at 21:52; Start 01/16/19 at 09:00; Stop 01/20/19 at 08:26; Status DC Acetaminophen (Tylenol) 650 mg PRN Q4HRS PRN PEG MILD PAIN / TEMP Last admi nistered on 01/27/19at 17:11; Start 01/16/19 at 08:15 Famotidine (Pepcid) 20 mg QHS PO Last administered on 01/17/19at 21:08; Start 01/16/19 at 21:00; Stop 01/18/19 at 13:06; Status DC Heparin Sodium (Porcine) (Heparin Sodium) 5,000 unit Q12HR SQ Last administered on 01/18/19at 13:18; Start 01/16/19 at 21:00; Stop 01/19/19 at 20:15; Status DC Sodium Chloride 500 ml @ 250 mls/hr Q1HR PRN IV HYPOTENTION; Start 01/17/19 at 19:15 Pantoprazole Sodium (PROTONIX VIAL for IV PUSH) 40 mg DAILYAC IVP Last administered on 01/22/19 08:33; Start 01/19/19 at 07:30; Stop 01/22/19 at 11:39; Status DC Piperacillin Sod/ Tazobactam Sod 3.375 gm/Sodium Chloride 50 ml @ 100 mls/hr Q6HRS IV Last administered on 01/24/19 05:57; Start 01/19/19 at 12:00; Stop 01/24/19 at 08:40; Status DC Magnesium Sulfate 50 ml @ 25 mls/hr 1X ONCE IV Last administered on 01/19/19 15:04; Start 01/19/19 at 12:30; Stop 01/19/19 at 14:29; Status DC Dobutamine HCl/ Dextrose 250 ml @ 6.302 mls/ hr CONT PRN IV SEE I/O RECORD Last administered on 01/21/19 07:23; Start 01/19/19 at 16:00; Stop 01/24/19 at 19:57; Status DC Heparin Sodium (Porcine) (Heparin Sodium) 5,000 unit Q12HR SQ Last administered on 01/29/19at 20:36; Start 01/20/19 at 01:45 Multivitamins (Thera-Plus Oral Liquid) 5 ml DAILY PEG Last administered on 01/29/19 08:53; Start 01/21/19 at 09:00 Potassium Chloride (KCl Oral Soln) 40 meq 1X ONCE PO Last administered on 11:56; Start 01/21/19 at 11:00; Stop 01/21/19 at 11:01; Status DC Lansoprazole (Prevacid) 30 mg DAILY NG Last administered on 01/29/19 08:53; Start 01/23/19 at 09:00 Potassium Chloride/Water 50 ml @ 50 mls/hr 1X ONCE IV Last administered on 01/23/19at 10:11; Start 01/23/19 at 10:00; Stop 01/23/19 at 10:59; Status DC Potassium Chloride (KCl Oral Soln) 20 meq 1X ONCE NG ; Start 01/23/19 at 10:15; Stop 01/23/19 at 10:16; Status DC Amoxicillin/ Clavulanate Potassium (Augmentin 875/ 125mg) 1 tab BID PO Last administered on 01/27/19at 09:49; Start 01/24/19 at 09:00; Stop 01/27/19 at 10:40; Status DC Furosemide (Lasix) 20 mg DAILY IVP ; Start 01/24/19 at 11:00; Stop 01/24/19 at 11:00; Status DC Furosemide (Lasix) 20 mg DAILY NG Last administered on 01/27/19at 09:50; Start 01/24/19 at 11:00; Stop 01/27/19 at 10:14; Status DC Potassium Chloride (KCl Oral Soln) 20 meq DAILY NG Last administered on 01/27/19at 09:50; Start 01/24/19 at 12:00; Stop 01/27/19 at 10:14; Status DC Barium Sulfate (Varibar Thin Liquid Apple) 148 gm 1X ONCE PO Last administered on 01/25/19at 13:15; Start 01/25/19 at 13:15; Stop 01/25/19 at 13:16; Status DC Haloperidol Lactate (Haldol Inj) 5 mg 1X ONCE IVP Last administered on 01/26/19at 07:33; Start 01/26/19 at 07:00; Stop 01/26/19 at 07:01; Status DC Haloperidol Lactate (Haldol Inj) 5 mg Q8HRS IVP Last administered on 01/26/19at 22:51; Start 01/26/19 at 14:00; Stop 01/27/19 at 10:14; Status DC Haloperidol Lactate (Haldol Inj) 5 mg 1X PRN PRN IVP AGITATION; Start 01/26/19 at 07:30; Stop 01/26/19 at 12:00; Status DC Diphenhydramine HCl (Benadryl) 25 mg PRN Q6HRS PRN IVP ITCHING; Start 01/26/19 at 16:45; Stop 01/27/19 at 10:14; Status DC Haloperidol Lactate (Haldol Inj) 5 mg PRN Q8HRS PRN IVP AGITATION Last administered on 01/27/19at 14:27; Start 01/27/19 at 10:15 Piperacillin Sod/ Tazobactam Sod 3.375 gm/Sodium Chloride 50 ml @ 100 mls/hr Q6HRS IV Last administered on 01/30/19 05:51; Start 01/27/19 at 12:00 Linezolid/Dextrose 300 ml @ 300 mls/hr Q12HR IV Last administered on 01/29/19at 20:35; Start 01/27/19 at 12:00 Dexmedetomidine HCl 200 mcg/ Sodium Chloride 50 ml @ 0 mls/hr CONT PRN IV PER PROTOCOL Last administered on 01/30/19 07:33; Start 01/27/19 at 15:15 Norepinephrine Bitartrate 250 ml @ 1.875 mls/ hr CONT PRN IV SEE I/O RECORD Last administered on 01/30/19at 05:53; Start 01/27/19 at 16:30 Sodium Chloride 1,000 ml @ 40 mls/hr Q24H IV Last administered on 01/27/19at 20:09; Start 01/27/19 at 20:15; Stop 01/29/19 at 10:39; Status DC Furosemide (Lasix) 40 mg 1X ONCE IVP Last administered on 01/29/19 11:01; Start 01/29/19 at 10:45; Stop 01/29/19 at 10:46; Status DC Active Scripts Active [Multivitamins,Therapeutic Liq] 5 ML Liquid 5 Ml PEG DAILY Heparin Sodium (Heparin Sodium,Porcine) 5,000 Unit/1 Ml Vial 5,000 Unit SQ Q12HR Zosyn 2.25 Gram Vial (Piperacillin Sodium/Tazobactam) 2.25 Gm Vial 1 Each PRN DAILY PRN 10 Days ID doctor to decide on duration of iv zosyn Reported Vitamin C (Ascorbate Calcium) 500 Mg Tablet 500 Mg PO DAILY Aspirin 325 Mg Tablet 1 Tab PO DAILY Zofran (Ondansetron Hcl) 4 Mg Tablet 4 Mg PO PRN Q6HRS PRN B-1 (Thiamine HCl) 100 Mg Tablet 100 Mg PO DAILY Acetaminophen 160 Mg/5 Ml Oral.susp 650 Mg PO PRN Q4HRS PRN Mirtazapine 7.5 Mg Tablet 7.5 Mg PO QHS Albuterol Sulfate Neb Soln (Albuterol Sulfate) 2.5 Mg/3 Ml Vial.neb 2.5 Mg NEB BID Atorvastatin Calcium 10 Mg Tablet 10 Mg PO HS Protonix (Pantoprazole Sodium) 20 Mg Tablet.dr 40 Mg PO DAILY Amiodarone Hcl 200 Mg Tablet 1 Tab PO DAILY Seroquel (Quetiapine Fumarate) 25 Mg Tablet 25 Mg PO HS Tramadol Hcl 50 Mg Tablet 25 Mg PO Q6HRS PRN Seroquel (Quetiapine Fumarate) 25 Mg Tablet 12.5 Mg PO PRN Q6HRS PRN Vitals/I & O Vital Sign - Last 24 Hours 01/29/19 01/29/19 01/29/19 01/29/19 10:00 11:00 12:00 12:00 Pulse 72 74 78 Resp 25 24 24 B/P (MAP) 89/39 (56) 90/45 (60) 128/62 (84) Pulse Ox 100 90 90 O2 Delivery BiPAP/CPAP Nasal Cannula Bi-pap BiPAP/CPAP O2 Flow Rate 5.0 01/29/19 01/29/19 01/29/19 01/29/19 12:05 13:00 14:00 15:00 Pulse 70 72 76 Resp 26 25 25 B/P (MAP) 114/57 (76) 119/56 (77) 111/53 (72) Pulse Ox 96 100 100 100 O2 Delivery Nasal Cannula BiPAP/CPAP BiPAP/CPAP BiPAP/CPAP O2 Flow Rate 5.0 01/29/19 01/29/19 01/29/19 01/29/19 16:00 16:00 17:00 17:40 Temp 98.7 98.7 Pulse 71 80 Resp 23 25 B/P (MAP) 117/62 (80) 120/56 (77) Pulse Ox 100 100 100 O2 Delivery BiPAP/CPAP Bi-pap BiPAP/CPAP BiPAP/CPAP 01/29/19 01/29/19 01/29/19 01/29/19 18:00 19:00 20:00 20:05 Pulse 68 64 Resp 24 24 B/P (MAP) 114/54 (74) 106/53 (70) Pulse Ox 100 100 100 O2 Delivery BiPAP/CPAP BiPAP/CPAP Bi-pap BiPAP/CPAP 01/29/19 01/29/19 01/29/19 01/30/19 21:00 22:00 23:00 00:00 Pulse 69 72 73 Resp 24 24 24 B/P (MAP) 92/47 (62) 100/46 (64) 104/47 (66) Pulse Ox 100 100 100 O2 Delivery BiPAP/CPAP Nasal Cannula Nasal Cannula Nasal Cannula O2 Flow Rate 3.0 3.0 3.0 01/30/19 01/30/19 01/30/19 01/30/19 00:01 01:00 02:00 03:00 Temp 98.5 98.5 Pulse 70 66 68 68 Resp 23 23 20 20 B/P (MAP) 99/43 (61) 98/43 (61) 103/49 (67) 104/49 (67) Pulse Ox 100 98 99 99 O2 Delivery Nasal Cannula Nasal Cannula Nasal Cannula Nasal Cannula O2 Flow Rate 3.0 3.0 3.0 3.0 01/30/19 01/30/19 01/30/19 01/30/19 04:00 04:00 05:00 06:00 Temp 98.0 98.0 Pulse 68 68 68 Resp 21 20 22 B/P (MAP) 105/51 (69) 104/49 (67) 107/53 (71) Pulse Ox 100 99 99 O2 Delivery Nasal Cannula Nasal Cannula BiPAP/CPAP BiPAP/CPAP O2 Flow Rate 3.0 3.0 01/30/19 01/30/19 01/30/19 06:08 06:15 08:00 Pulse 65 Resp 22 B/P (MAP) 91/43 (59) Pulse Ox 100 99 O2 Delivery BiPAP/CPAP BiPAP/CPAP Nasal Cannula O2 Flow Rate 3.0 Intake and Output 01/29/19 01/29/19 01/30/19 15:00 23:00 07:00 Intake Total 350 ml 1004 ml 1568 ml Output Total 315 ml 885 ml 320 ml Balance 35 ml 119 ml 1248 ml CHRISTINA CHAVARRIA MD January 30, 2019 09:38
--- NOTE | 2019-01-30 09:41 | SNU/HH DC ---
DISCHARGE ORDERS DISCHARGE INFORMATION: DISCHARGE DATE: January 30, 2019 FINAL DIAGNOSIS Problems respiratory arrest. oropharyngeal dysphagia. lung infiltrates Medical Problems: (1) Cardiac arrest Status: Acute (2) HCAP (healthcare-associated pneumonia) Status: Acute (3) Liver failure Status: Acute CONDITION ON DISCHARGE: Stable CODE STATUS: Code Status: Full LTAC: ADMIT TO LTAC: Yes POST DISCHARGE ORDERS: DIET AFTER DISCHARGE: continue NG tube feeding and water flushes OTHER ORDERS: . consult wound care nurse TREATMENT/EQUIPMENT ORDERS: RESPIRATORY EQUIPMENT NEEDED: Oxygen Physical Therapy For: Evalulation/Treatment Occupational Therapy For: Evaluation/Treatment DISCHARGE MEDICATIONS: Home Meds Active Scripts [Multivitamins,Therapeutic Liq] 5 ML LIQUID No Conflict Check, 5 ML PEG DAILY for MVI, #30 Prov:CHRISTINA CHAVARRIA MD 01/23/19 Heparin Sodium,Porcine (HEPARIN SODIUM) 5,000 Unit/1 Ml Vial, 5000 UNIT SQ Q12HR for dvt prophylaxis, #30 EACH Prov:CHRISTINA CHAVARRIA MD 01/23/19 Piperacillin Sodium/Tazobactam (ZOSYN 2.25 GRAM VIAL) 2.25 Gm Vial, 1 EACH MC PRN DAILY PRN for SEE COMMENTS for 10 Days, EACH ID doctor to decide on duration of iv zosyn Prov:CHRISTINA CHAVARRIA MD 01/23/19 Reported Medications Ascorbate Calcium (VITAMIN C) 500 Mg Tablet, 500 MG PO DAILY for vit, TAB 01/15/19 Aspirin (ASPIRIN) 325 Mg Tablet, 1 TAB PO DAILY for cardiac, #90 TAB 3 Refills 01/15/19 Ondansetron Hcl (ZOFRAN) 4 Mg Tablet, 4 MG PO PRN Q6HRS PRN for NAUSEA/VOMITING, TAB 01/15/19 Thiamine HCl (B-1) 100 Mg Tablet, 100 MG PO DAILY for vit, TAB 01/15/19 Acetaminophen (ACETAMINOPHEN) 160 Mg/5 Ml Oral.susp, 650 MG PO PRN Q4HRS PRN for FEVER, MISC 01/15/19 Mirtazapine (MIRTAZAPINE) 7.5 Mg Tablet, 7.5 MG PO QHS for depression, TAB 01/15/19 Albuterol Sulfate (ALBUTEROL SULFATE NEB SOLN) 2.5 Mg/3 Ml Vial.neb, 2.5 MG NEB BID for sooa, EACH 0 Refills 01/15/19 Atorvastatin Calcium (ATORVASTATIN CALCIUM) 10 Mg Tablet, 10 MG PO HS for calcium, #30 TAB 0 Refills 01/15/19 Pantoprazole Sodium (PROTONIX) 20 Mg Tablet.dr, 40 MG PO DAILY for gerd, TAB 01/15/19 Amiodarone Hcl (AMIODARONE HCL) 200 Mg Tablet, 1 TAB PO DAILY for heart rate, #90 TAB 3 Refills 01/15/19 Quetiapine Fumarate (SEROQUEL) 25 Mg Tablet, 25 MG PO HS for sleep, TAB 01/15/19 Tramadol Hcl (TRAMADOL HCL) 50 Mg Tablet, 25 MG PO Q6HRS PRN for PAIN, TAB 01/15/19 Quetiapine Fumarate (SEROQUEL) 25 Mg Tablet, 12.5 MG PO PRN Q6HRS PRN for AGITATION, TAB 01/15/19 Discontinued Reported Medications Carvedilol (COREG ) 3.125 Mg Tablet, 3.125 MG PO BIDWMEALS for CARDIAC, TAB 01/15/19 Docusate Sodium (DOCUSATE SODIUM) 100 Mg Capsule, 100 MG PO PRN PRN for CONSTIPATION, CAP 01/15/19 Magnesium Hydroxide (MILK OF MAGNESIA) 2,400 Mg/10 Ml Oral.susp, 2400 MG PO PRN PRN for CONSTIPATION, MISC 01/15/19 Furosemide (LASIX) 40 Mg Tablet, 40 MG PO BID for water, TAB 01/15/19 CHRISTINA CHAVARRIA MD January 30, 2019 09:41
[2019-01-30] MEDS: AMIODARONE HCL 200 MG TABLET. PO SCH (09:43)
[2019-01-30] MEDS: ALBUTEROL SULFATE 2.5 MG/3 ML NEBU. NEB SCH (09:48)
[2019-01-30] MEDS: ASCORBIC ACID 500 MG TABLET PO SCH (09:49)
[2019-01-30] MEDS: THIAMINE 100 MG TABLET. PO SCH (09:49)
[2019-01-30] MEDS: LANSOPRAZOLE 30 MG TAB.RAP.DR NG SCH (09:49)
[2019-01-30] MEDS: MULTIVITAMINS,THERAPEUTIC 5 ML ORAL LIQUID. PEG SCH (09:49)
[2019-01-30] MEDS: ASPIRIN 325 MG TABLET PO SCH (09:49)
[2019-01-30] MEDS: HEPARIN for SUB-Q USE 5,000 UNIT/ML VIAL. SQ SCH (09:51)
--- NOTE | 2019-01-30 09:52 | PDOC ---
Provider Note Provider Note discharge summary dictated # [id number] CHRISTINA CHAVARRIA MD January 30, 2019 09:52
--- NOTE | 2019-01-30 10:30 | NUR ---
SS following up with discharge planning. Discharge orders received for return to [facility], ; fax [phone]. SS phoned and faxed discharge orders to [facility]. Pt will discharge today and go to [facility] at 1200 via [facility]. Pt, pt's daughter, and pt's RN notified.
--- NOTE | 2019-01-30 11:09 | PDOC ---
Subjective: Subjective: Daughter concerned that she is leaving w/o trach. Objective: Objective: Reviewed w/ RN - plans to DC to [facility] w/ NG feeds and BiPAP due to insurance reasons and pursue outpt trach and PEG placement if needed. Vital Signs: Vital Signs Date Time Temp Pulse Resp B/P (MAP) Pulse Ox O2 Delivery O2 Flow Rate FiO2 01/30/19 09:48 96 Nasal Cannula 3.0 01/30/19 09:43 67 91/47 01/30/19 06:15 22 01/30/19 04:00 98.0 98.0 Labs: Laboratory Tests Test 01/29/19 12:14 01/29/19 18:01 01/29/19 21:20 01/30/19 01:30 Glucose (Fingerstick) 214 mg/dL 189 mg/dL 170 mg/dL 153 mg/dL Test 01/30/19 05:45 01/30/19 06:31 White Blood Count 8.5 x10^3/uL Red Blood Count 3.17 x10^6/uL Hemoglobin 9.6 g/dL Hematocrit 30.4 % Mean Corpuscular Volume 96 fL Mean Corpuscular Hemoglobin 30 pg Mean Corpuscular Hemoglobin Concent 32 g/dL Red Cell Distribution Width 18.9 % Platelet Count 205 x10^3/uL Neutrophils (%) (Auto) 77 % Lymphocytes (%) (Auto) 12 % Monocytes (%) (Auto) 7 % Eosinophils (%) (Auto) 4 % Basophils (%) (Auto) 1 % Neutrophils # (Auto) 6.6 x10^3uL Lymphocytes # (Auto) 1.0 x10^3/uL Monocytes # (Auto) 0.6 x10^3/uL Eosinophils # (Auto) 0.3 x10^3/uL Basophils # (Auto) 0.1 x10^3/uL Sodium Level 145 mmol/L Potassium Level 4.0 mmol/L Chloride Level 110 mmol/L Carbon Dioxide Level 28 mmol/L Anion Gap 7 Blood Urea Nitrogen 60 mg/dL Creatinine 1.3 mg/dL Estimated GFR (Cockcroft-Gault) 40.4 Glucose Level 224 mg/dL Calcium Level 8.3 mg/dL Magnesium Level 2.0 mg/dL Glucose (Fingerstick) 184 mg/dL Imaging: CXR 01/30 IMPRESSION: Bilateral airspace disease and pleural effusions, similar to prior exam. PE: GEN: NAD LUNGS: NC HEART: RRR ABD: probably some distention, non-tender NEURO/PSYCH: awake, says a few words to daughter A/P: Resp failure -- Change in plans as above. TATUM KRUSE January 30, 2019 11:09
--- NOTE | 2019-01-30 12:10 | NUR ---
all belonging left with patient . daughter took cards any personal items with her
--- NOTE | 2019-01-30 12:15 | NUR ---
patient left to [facility] per EMS, levo at 2mcg min, precidex at 0.2mcg HR,ptient alert to self, 02 at 3L per N/C, on and off bi-pap, report called to [facility], all questions answered, rectal tube,picc,catsro, ng, all left in. daughter at bedside all questions answered.
--- NOTE | 2019-01-30 12:55 | PDOC2 ---
PALLIATIVE CARE Palliative Care Note Palliative Care Patient goals have been established prior to meeting scheduled at 1030. Plan [facility] for Full aggressive care including tracheostomy and PEG tube. 0930 Spoke with daughters --Jennifer at patient bedside and Katherine per phone. Reviewed Medical Condition . Code Status; Full Code. Dr Garza aware and wrote orders. Discussed with JOSSE Pat January 30, 2019 12:55
--- NOTE | 2019-01-30 17:14 | DS ---
DATE OF DISCHARGE: 01/30/2019 CONSULTANTS: Include Dr. Hameed in [facility]. Dr. Nguyễn Sun, Dr. Duke, Dr. Hair and Dr. Zimmerman and Dr. France and Dr. Colvin. FINAL DIAGNOSES: 1. Cardiopulmonary arrest. 2. Nonischemic cardiomyopathy with improvement of the left ventricular ejection fraction of 15% to 20% to 40%. 3. Acute on chronic hypoxic and hypercapnic respiratory failure. 4. Sepsis with shock. 5. Bilateral lung infiltrates consistent with aspiration pneumonia. 6. Acute kidney injury, most likely secondary to the cardiopulmonary arrest, which improved. 7. Hypotension, on Levophed. 8. Elevated liver function tests, improved. 9. Acute on chronic systolic congestive heart failure, compensated clinically. 10. Paroxysmal atrial fibrillation, but not a candidate for Pradaxa due to recent GI bleed in 06/2018 from a gastric ulcer. 11. Oropharyngeal dysphagia. 12. Diabetes mellitus type 2. 13. Mild coronary artery disease. 14. Suspected sleep apnea and she will need an outpatient sleep study when she leaves the hospital setting. 15. Metabolic and toxic encephalopathy, improved. 16. Fever, which resolved. 17. Leukocytosis. HOSPITAL COURSE: The patient is a 73-year-old white female with a history of a nonischemic cardiomyopathy with previous left ventricular ejection fraction of 15-20%, with a history of chronic combined systolic and diastolic congestive heart failure, who did not have an AICD placed at the previous facility prior to [facility] because of her poor prognosis with a history of diabetes mellitus type 2, mild coronary artery disease, previous history of a gastric ulcer due to a GI bleed in 06/2018, so her Pradaxa was not renewed for paroxysmal atrial fibrillation. She was admitted to [facility] on 12/19/2018 with altered mental status and acute hypoxic and hypercapnic respiratory failure and had to be intubated and had acute on chronic combined systolic and diastolic congestive heart failure, bilateral pleural effusion, status post thoracentesis, treated with diuretics. She had a sacral wound and a right thigh hematoma at that time. She has chronic kidney disease with acute kidney injury on top of that, had severe protein-calorie malnutrition, oropharyngeal dysphagia, maintain nasogastric tube feedings. She was weaned off the ventilator, but was on BiPAP during the night. She had problems with hyponatremia. She was admitted to [facility] 01/10/2019. She was found unresponsive and was pulseless on the night of 01/15/2019 and was resuscitated with CPR and epinephrine, and she eventually had a pulse and was sent to the Intensive Care Unit [facility] where she was admitted on 01/15/2019. She was intubated at [facility] at the time of the cardiac arrest and currently on a ventilator. She had some fever and lung infiltrate consistent with aspiration pneumonia, started on IV antibiotics, seen by the infectious disease doctor. BUN was 70, creatinine 2.6, with acute kidney injury on top of chronic kidney disease stage 3, probably related to the hypotension from the cardiac arrest. She failed her swallow evaluation and nasogastric tube feedings were continued. She was weaned off the ventilator, but needed BiPAP, but was resisting BiPAP, so she had a respiratory arrest and was sent back from the floor to the Intensive Care Unit and now she is sedated with Precedex, is on BiPAP at night and during the day if necessary and if she is off the BiPAP, she is on oxygen 3 liters per nasal cannula. She is tolerating nasogastric tube feedings. The patient was seen by Palliative Care, and the family wishes to be a full code and also wants a PEG and a tracheostomy. The patient was seen by Dr. France in consultation and felt the patient was a good candidate for tracheostomy given her recurrent respiratory arrest, and the family is agreeable to it, and she was to have the procedure done on Wednesday by Dr. Fofana, but was admitted to [facility]. She was seen by the infectious disease doctor, receiving antibiotics. The patient will be dismissed to [facility] today, and the plan is to do an outpatient tracheostomy and PEG over at [facility] and of course, she will return after each procedure to [facility]. She will be dismissed on Tylenol 650 mg every 4 hours p.r.n., albuterol nebulizer treatments b.i.d. and every 4 hours p.r.n., amiodarone 200 mg every day, vitamin C 500 mg every day, aspirin 325 mg every day, atorvastatin 10 mg at bedtime, Precedex. She is on Colace 100 mg p.r.n., Haldol 5 mg IV every 8 hours p.r.n. agitation, heparin 5000 units subQ every 12 hours low dose, Humalog insulin sliding scale every 6 hours as written, Prevacid 30 mg every day, Zyvox 600 mg IV q.12 hours, multiple vitamin every day. She is on Levophed low dose 2 mcg, Zofran 4 mg every 6 hours p.r.n. through the NG tube. She is on Zosyn 3.375 grams IV every 6 hours and thiamine 100 mg every day through nasogastric tube, and she is receiving BiPAP at 18-6 setting with a rate of 10, 40% oxygen at bedtime and p.r.n. When she is off the BiPAP, she is on oxygen at 3 liters per nasal cannula. She is on Nepro at 40 mL an hour and 175 mL of water every 4 hours through her nasogastric tube. She is on SCDs for deep vein thrombosis prophylaxis and heparin also for deep vein thrombosis prophylaxis. She will be transferred back to [facility] today with the intention of proceeding with a tracheostomy and a PEG. CHRISTINA CHAVARRIA MD DR: CHARIS/nicole JOB#: [id number] / [id number]
[2019-02-20] MEDS ORDERED: ASPI-630 PO (18:35)
[2019-02-20] MEDS ORDERED: ESCITALOPRAM OX10 MG PO (18:36)
[2019-02-20] MEDS ORDERED: BUSP5TAB PO (18:39)
[2019-02-20] MEDS ORDERED: MAGN2400 PO (18:40)
[2019-02-20] MEDS ORDERED: TRAZ-118 PO (18:41)
[2019-02-20] MEDS ORDERED: MELA3TAB2 PO (18:42)
[2019-02-20] MEDS ORDERED: FURO100P IVP (18:42)
[2019-02-20] MEDS ORDERED: HYDR-2761 PO (18:44)
[2019-02-20] MEDS ORDERED: ONDANSETRON IVP (18:44)
[2019-02-20] MEDS ORDERED: DOCU100C28 PO (18:45)
[2019-02-20] MEDS ORDERED: ENOX40DI SQ (18:47)
== END 2019-01-30 12:15 | DRG 870 ==
LOC: ER 14:46 → 1 WEST ICU 14:56 → 6 SOUTH 01-24 19:56 → 1 WEST ICU 01-27 12:15
PROVIDERS: ADMIT Internal Medicine; ATTEND Internal Medicine
PROC: 5A1955Z Respiratory Ventilation, Greater than 96 Consecutive Hours (ICD-10-PCS; principal; 2019-01-15)
PROC: 30233N1 Transfusion of Nonautologous Red Blood Cells into Peripheral Vein, Percutaneous Approach (ICD-10-PCS; 2019-01-15)
PROC: 5A12012 Performance of Cardiac Output, Single, Manual (ICD-10-PCS; 2019-01-15)
PROC: 0W9B3ZZ Drainage of Left Pleural Cavity, Percutaneous Approach (ICD-10-PCS; 2019-01-19)
PROC: 5A09357 Assistance with Respiratory Ventilation, Less than 24 Consecutive Hours, Continuous Positive Airway Pressure (ICD-10-PCS; 2019-01-25)
PROC: 5A09357 Assistance with Respiratory Ventilation, Less than 24 Consecutive Hours, Continuous Positive Airway Pressure (ICD-10-PCS; 2019-01-26)
PROC: 5A09357 Assistance with Respiratory Ventilation, Less than 24 Consecutive Hours, Continuous Positive Airway Pressure (ICD-10-PCS; 2019-01-27)
PROC: 5A09457 Assistance with Respiratory Ventilation, 24-96 Consecutive Hours, Continuous Positive Airway Pressure (ICD-10-PCS; 2019-01-28)
DX: A41.9 Sepsis, unspecified organism (principal); L89.153 Pressure ulcer of sacral region, stage 3; E43 Unspecified severe protein-calorie malnutrition; I46.9 Cardiac arrest, cause unspecified; I50.43 Acute on chronic combined systolic (congestive) and diastolic (congestive) heart failure; J69.0 Pneumonitis due to inhalation of food and vomit; J96.21 Acute and chronic respiratory failure with hypoxia; J96.22 Acute and chronic respiratory failure with hypercapnia; G92 Toxic encephalopathy; R65.21 Severe sepsis with septic shock; N17.9 Acute kidney failure, unspecified; E87.0 Hyperosmolality and hypernatremia; E87.1 Hypo-osmolality and hyponatremia; I13.0 Hypertensive heart and chronic kidney disease with heart failure and stage 1 through stage 4 chronic kidney disease, or unspecified chronic kidney disease; N39.0 Urinary tract infection, site not specified; D64.9 Anemia, unspecified; D69.6 Thrombocytopenia, unspecified; E11.22 Type 2 diabetes mellitus with diabetic chronic kidney disease; E83.42 Hypomagnesemia; E78.5 Hyperlipidemia, unspecified; E87.5 Hyperkalemia; E87.6 Hypokalemia; I25.10 Atherosclerotic heart disease of native coronary artery without angina pectoris; I25.2 Old myocardial infarction; I25.5 Ischemic cardiomyopathy; I48.0 Paroxysmal atrial fibrillation; I48.2 Chronic atrial fibrillation; J44.9 Chronic obstructive pulmonary disease, unspecified; K72.90 Hepatic failure, unspecified without coma; N18.3 Chronic kidney disease, stage 3 (moderate); R13.12 Dysphagia, oropharyngeal phase; Y95 Nosocomial condition; Z78.1 Physical restraint status; Z79.4 Long term (current) use of insulin; Z79.82 Long term (current) use of aspirin; Z79.899 Other long term (current) drug therapy; Z83.3 Family history of diabetes mellitus; Z87.11 Personal history of peptic ulcer disease; Z91.19 Patient's noncompliance with other medical treatment and regimen; Z95.0 Presence of cardiac pacemaker; Z68.33 Body mass index [BMI] 33.0-33.9, adult
CPT/HCPCS: 31500; 32555; 36415; 36600; 51702; 71045; 71250; 74018; 74230; 76770; 80048; 80053; 81001; 82805; 82962; 83615; 83735; 83880; 83986; 84145; 84157; 85007; 85025; 85610; 85730; 86850; 86900; 86901; 86920; 87040; 87070; 87071; 87075; 87086; 87116; 87205; 87493; 87641; 88112; 88305; 93005; 93306; 94002; 94003; 94640; 94660; 94760; 96374; C9113; J0610; J1250; J1630; J1644; J1815; J1940; J2020; J2250; J2543; J3010; J3370; J3475; J3480; J7030; J7040; J7613; P9016; 92526; 92610; 92611; 97530; 97535; 99285-25